=== PATIENT | female | born 1945 | race Caucasian/White ===

== ENCOUNTER 2020-09-03 12:08 | Emergency (ER) | payer MEDICARE, MEDICAID, SELFPAY ==
--- NOTE | ~2020-09-03 | XR_ITS ---
EXAMINATION: Right wrist and forearm CLINICAL INFORMATION: Injury COMPARISON: None TECHNIQUE: AP and lateral views of the right forearm were obtained. 3 views of the right hand and wrist FINDINGS: No acute fracture or dislocation of the right wrist is seen. There is severe degenerative change of the first carpal metacarpal joint with marginal sclerosis and spurring and what appears to be some loss of height of the trapezium. There is narrowing of the triscaphe joint. Views of the right hand demonstrate some degree of osteopenia. There is degenerative joint disease seen involving the proximal and distal interphalangeal joints with loss of joint space and prominent spurring and some cortical irregularity. No periarticular or para-articular erosive changes noted. AP and lateral views of the right forearm demonstrate some calcification about the triangular cartilage with mild negative ulnar variance. There is some spurring about the radius without definite fracture or effusion identified. There is spurring about the coronoid process. XR/XR hand wrist RT IMPRESSION: No acute fracture or dislocation identified involving the right hand, right wrist, or right forearm. Significant degenerative changes as described above.
--- NOTE | ~2020-09-03 | CT_ITS ---
EXAMINATION: CT HEAD/BRAIN WITHOUT CONTRAST CLINICAL INFORMATION: Fall COMPARISON: None. TECHNIQUE: CT scanning from base of skull to vertex performed without IV contrast administration. This CT examination was performed using dose optimization techniques as appropriate, variously including the following: *Automated exposure control *Adjustment of mA and/or kV according to patient size (this includes techniques or standardized protocols for targeted exams where dose is matched to indication/reason for exam; i.e. extremities or head) *Use of iterative reconstruction technique DLP: 760.02 mGy-cm. FINDINGS: The ventricles, sulci, and cisterns appear unremarkable. No abnormal extra-axial fluid collection or intracranial hemorrhage is seen. No significant mass effect or midline structure shift is evident. The calvarium appears intact. There is some right frontal scalp soft tissue swelling. Paranasal sinuses and mastoid air cells unremarkable. Carotid artery calcification present. CT/CT cervical spine wo con IMPRESSION: No acute intracranial abnormality appreciated. EXAMINATION: CT OF THE CERVICAL SPINE CLINICAL INFORMATION: Fall COMPARISON: None. TECHNIQUE: Thin helical images with sagittal and coronal reformats. This CT examination was performed using dose optimization techniques as appropriate, variously including the following: *Automated exposure control *Adjustment of mA and/or kV according to patient size (this includes techniques or standardized protocols for targeted exams where dose is matched to indication/reason for exam; i.e. extremities or head) *Use of iterative reconstruction technique DOSE: DLP 418.03 mGy-cm FINDINGS: No abnormal prevertebral soft tissue swelling seen. The paraspinal muscle planes are maintained. No acute cervical spine fracture is seen. There is severe multilevel degenerative disc disease present with loss of disc spaces from C2 through C7. There is some spurring of the joints of L[place]ch[place] at the C5-C6 and C6-C7 levels causing some mild anterior neural foraminal encroachment. There is fusion of the vertebral bodies and posterior elements at C3-C4. Pterygoid plates intact. There is significant degenerative change of the left temporal mandibular joint with flattening of the condyle and marginal sclerosis. IMPRESSION: No acute cervical spine fracture. Severe cervical spondylosis as described. Significant temporal mandibular joint degenerative change on the left.
--- NOTE | ~2020-09-03 | XR_ITS ---
EXAMINATION: XR FOREARM, LEFT XR HAND WRIST, LEFT CLINICAL INFORMATION: Trauma, pain COMPARISON: None TECHNIQUE: AP and lateral views of the left forearm were obtained. The left hand and wrist are imaged together in 3 large [id number] images. There are a total of 5 views for the 2 exams. FINDINGS: The left forearm shows no fracture or dislocation. There is some mild spurring of the coronoid. There is mild negative ulnar variance. Incidental corticated ossicle adjacent to tip ulnar styloid. The carpus shows no fracture or dislocation. There is arthropathy lateral carpus involving the first carpometacarpal joint and left degenerative change at the triscaphe joint. There is mild widening between the lunate and scaphoid likely related to degeneration and tear of the scapholunate ligament. The pronator quadratus fat pad appears normal. The hand shows no fracture or dislocation. There are degenerative changes involving the interphalangeal joints, both PIP and DIP. XR/XR hand wrist LT IMPRESSION: 1. No fracture or dislocation. 2. Widening between the lunate and scaphoid likely related to degeneration and tear scapholunate ligament. 3. Degenerative changes lateral carpus and interphalangeal joints.
--- NOTE | ~2020-09-03 | XR_ITS ---
EXAMINATION: Right wrist and forearm CLINICAL INFORMATION: Injury COMPARISON: None TECHNIQUE: AP and lateral views of the right forearm were obtained. 3 views of the right hand and wrist FINDINGS: No acute fracture or dislocation of the right wrist is seen. There is severe degenerative change of the first carpal metacarpal joint with marginal sclerosis and spurring and what appears to be some loss of height of the trapezium. There is narrowing of the triscaphe joint. Views of the right hand demonstrate some degree of osteopenia. There is degenerative joint disease seen involving the proximal and distal interphalangeal joints with loss of joint space and prominent spurring and some cortical irregularity. No periarticular or para-articular erosive changes noted. AP and lateral views of the right forearm demonstrate some calcification about the triangular cartilage with mild negative ulnar variance. There is some spurring about the radius without definite fracture or effusion identified. There is spurring about the coronoid process. XR/XR forearm RT 2V IMPRESSION: No acute fracture or dislocation identified involving the right hand, right wrist, or right forearm. Significant degenerative changes as described above.
--- NOTE | ~2020-09-03 | XR_ITS ---
EXAMINATION: XR FOREARM, LEFT XR HAND WRIST, LEFT CLINICAL INFORMATION: Trauma, pain COMPARISON: None TECHNIQUE: AP and lateral views of the left forearm were obtained. The left hand and wrist are imaged together in 3 large [id number] images. There are a total of 5 views for the 2 exams. FINDINGS: The left forearm shows no fracture or dislocation. There is some mild spurring of the coronoid. There is mild negative ulnar variance. Incidental corticated ossicle adjacent to tip ulnar styloid. The carpus shows no fracture or dislocation. There is arthropathy lateral carpus involving the first carpometacarpal joint and left degenerative change at the triscaphe joint. There is mild widening between the lunate and scaphoid likely related to degeneration and tear of the scapholunate ligament. The pronator quadratus fat pad appears normal. The hand shows no fracture or dislocation. There are degenerative changes involving the interphalangeal joints, both PIP and DIP. XR/XR forearm LT 2V IMPRESSION: 1. No fracture or dislocation. 2. Widening between the lunate and scaphoid likely related to degeneration and tear scapholunate ligament. 3. Degenerative changes lateral carpus and interphalangeal joints.
[2020-09-03 12:17] VITALS: BP 168/86; BP 171/80; PULSE 80; RESP 16; TEMP 36.4; O2SAT 97; BMI 30.4
--- NOTE | 2020-09-03 12:43 | ED.GENADULT ---
HPI - General Adult General Chief complaint: General Medical Stated complaint: mechanical fall/ head lac Time Seen by Provider: 09/03/20 12:43 History of Present Illness HPI narrative: patient complains of pain to both hands wrists and forearms after a trip and fall, she also hit her head and has a laceration to her scalp and has some neck pain, there was no loss of consciousness no vomiting no vision changes no preceding dizziness did not feel faint, did not feel any palpitations, there is no numbness or weakness, no chest pain no abdominal pain no vomiting Related Data Allergies Allergy/AdvReac Type Severity Reaction Status Date / Time No Known Allergies Allergy Verified 09/03/20 12:17 Review of Systems Review of Systems: Positive for bilateral wrist and arm pain, neck pain and a laceration to the scalp Negatives are no fever no chills no dizziness no weakness no fainting no feeling faint no headache no loss of consciousness no retrograde amnesia no vision changes, no numbness weakness or tingling in extremities no chest pain no palpitations no shortness of breath no abdominal pain no nausea or vomiting PMFSH Past Medical History Medical History Diverticulitis FHx: total knee replacement Surgical History H/O shoulder replacement S/P hip replacement Social History Social History Advance Directives: No Advance Directives Information Provided: No Physical Exam Vital Signs: Vital Signs: Last Vital Signs Temp 97.5 F 09/03/20 12:17 Pulse 80 09/03/20 12:17 Resp 16 09/03/20 12:17 BP 171/80 H 09/03/20 12:17 Pulse Ox 97 09/03/20 12:17 Body Mass Index 30.4 General appearance is no acute distress A&O x3 The head had a 1 cm superficial laceration to the scalp, there is no hematoma there is no defects there is no rand sign no raccoon eyes ear exam there is no hemotympanum Facial exam there is no tenderness over the orbits or mandible Eye exam pupils equal round reactive to light extraocular motions are intact The neck did have bilateral paraspinal tenderness there is no bony tenderness there was mild discomfort with movement of the neck The chest is clear to auscultation bilateral with full symmetric equal breath sounds Heart no murmur Chest wall nontender no rib tenderness The abdomen soft nontender Extremities there is tenderness with good range of motion in bilateral wrists there is tenderness to the forearms and there was some tenderness to the palms of the hands but there is full range of motion in the fingers wrists and elbows, neurovascular intact distal in both upper extremities Lower extremities no tenderness swelling or deformity Neuro no focal motor or sensory deficit, conversation both understanding and expression are normal, motor is 5/5 x4, no facial asymmetry, cranial nerves 2-12 intact as test Course Course Course Narrative: CT of brain and cervical spine did not show any bleed or skull fracture, no acute pathology, the cervical spine did not show any fractures or any other emergent condition X-rays of hand wrist and forearm bilaterally did not reveal any fractures Patient is well-appearing and is discharged to follow with orthopedist as needed for the arms and if there is any continuing neck pain she will follow with her doctor Discharge Plan Discharge Clinical Impression: Sprain of wrist, Laceration of scalp, Neck muscle strain Patient Disposition: Home, Self-Care Additional Instructions: imaging today did not show any broken bone in the hand wrist or forearm of either arm Imaging of the brain the skull and the bones of the neck did not show any broken bone or bleed or skull fracture, no dangerous injury The small cut on her scalp was closed with glue and 2 Steri-Strips You got a tetanus shot If hand and wrist pain continues follow with hand doctor Follow with primary doctor for any ongoing neck pain or any other problems Return to the ER any time any worse condition or any concerns Referrals: Becki Wilde MD [Physician] - 2 days ( bilateral wrist sprains) Interventions: ED Discharge Assessment Last Done: 09/03/20 15:45 Discharge Date/Time: 09/03/20 15:46
[2020-09-03] MEDS: LORazepam 1 MG TABLET PO (12:54)
[2020-09-03] MEDS: oxyCODONE HCl Immed Release 5 MG TABLET PO ×2 (12:55→14:10)
[2020-09-03] MEDS: Diphth,Pertus(ACell),Tet Adult 0.5 ML SYRINGE IM (14:52)
== END 2020-09-03 15:46 | disposition home or self-care (01) ==
PROVIDERS: Emergency Provider Emergency Medicine; PCP Pediatrics
DX: S63.501A Unspecified sprain of right wrist, initial encounter (principal); S63.502A Unspecified sprain of left wrist, initial encounter; S01.01XA Laceration without foreign body of scalp, initial encounter; S16.1XXA Strain of muscle, fascia and tendon at neck level, initial encounter; W01.0XXA Fall on same level from slipping, tripping and stumbling without subsequent striking against object, initial encounter; Y93.9 Activity, unspecified; Y92.9 Unspecified place or not applicable; Y99.9 Unspecified external cause status
CPT/HCPCS: 70450; 72125; 73090; 73110; 73130; 90471; 90715; 99284

== ENCOUNTER 2023-06-08 13:17 | Outpatient (AMB) | payer MEDICARE, MEDICAID, SELFPAY ==
--- NOTE | 2023-06-08 13:23 | A.OFFPC_ITS ---
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 Gas Controller Required: No Allergies codeine Allergy (Intermediate, Verified 06/08/23 13:24) headache Medication List - Last Reconciled 06/08/23 by Ayesha Marroquin PA-C albuterol sulfate 90 mcg/actuation inhalation atorvastatin 40 mg PO DAILY biotin mcg PO budesonide 180 mcg/actuation (Pulmicort Flexhaler) 2 inhalations inhalation BID cholecalciferol (vitamin D3) 50 mcg PO DAILY diclofenac sodium 1% topical docusate sodium 100 mg PO BID lisinopril 10 mg PO DAILY mecobalamin (vitamin B12) mcg PO meloxicam 15 mg PO DAILY metoprolol succinate ER 50 mg PO BID tu-ipw-ubmal-calcium carb-K1 400 mcg-500 mg calcium-20 mcg (Women's 50 Plus Multivitamin) tabs PO pantoprazole 40 mg PO DAILY pyridoxine (vitamin B6) 100 mg PO DAILY sertraline 150 mg PO Q24H simethicone 80 mg PO Q6H PRN sucralfate 1 g PO BID trazodone 100 mg PO BEDTIME PRN vit C,E,Zn,Ab-dvike3-xma-zeax 250-2.5-0.5 mg caps PO Tobacco use date assessed: 06/08/23 Fall risk assessment: No Falls in past year Last assessed Fall Risk: 06/08/23 Dental Screening Dental Screen Date: 06/08/23 Did you have a dental visit in the last 12 months?: No Did you have a dental problem in the last 6 months where you did not have access to dental care?: No Was dental information given to patient?: 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 She is transferring from [facility], last seen a couple months ago by myself. No records yet available. CV: Blood pressure today in the office is 116/72. Lisinopril 10 mg and metoprolol 50 mg BID. She is following with Dr. Lynn. She has follow up arranged this summer and is going for a diagnostic cath per pt. Denies any current cp. She does get cp and sob with exertion. this is currently unchanged. doing well with the atorvastatin. remains on aspirin. GI: She is on pantroprazole daily and it is helpful. She was following with Dr. Grossman and was seen 4 years ago for a double endoscopy. She is going to be seeing [facility] [place]. She does still get breakthrough GERD. Endo: Following with endo for osteoporosis and saw them yesterday. She states that they are going to possibly start prolia. Psych: at our last visit we went up to 150 mg of sertraline. She remains on trazodone 100 mg. She denies any si/hi. She states that her depression is currently active because her car 3 weeks ago. Her son is a drug addict and facing foreclosure on his home and this is stressful. She is states that she has heard from [facility] and is going in next week for her initial intake. She still sees [facility] weekly. Musculoskeletal: she states that her fibromyalgia is a bit flared with the new life stressors. Colonoscopy:2019- Dr. Grossman Mammo:overdue Immunizations: UTD Bone Density: UTD, -osteoporosis [facility] Medical History Diverticulitis FHx: total knee replacement Surgical History H/O shoulder replacement S/P hip replacement Social History Housing: Other Housing Other:: Mobile home Patient Tobacco Use Status: Former Tobacco user Tobacco use type: Cigarette Years Smoked: 16 years total. Smoked socially. quit 25 years ago e-Cigarette/Vaping Use: Never Used Second Hand Smoke Exposure: Yes service: No Current occupational status: retired Cognitive needs: No Hearing needs: No Vision needs: No Questionnaire PHQ-9 Over the last 2 weeks, how often have you been bothered by any of the following problems? 1. Little interest or pleasure in doing things: several days 2. Feeling down, depressed, or hopeless: more than half the days 3. Trouble falling or staying asleep, or sleeping too much: several days 4. Feeling tired or having little energy: not at all 5. Poor appetite or overeating: not at all 6. Feeling bad about yourself - or that you are a failure or have let yourself or your family down: not at all 7. Trouble concentrating on things, such as reading the newspaper or watching television: not at all 8. Moving or speaking so slowly that other people could have noticed. Or the opposite - being so fidgety or restless that you have been moving around a lot more than usual: not at all 9. Thoughts that you would be better off or of hurting yourself in some way: not at all Total score: 4 Depression Screening Interpretation: Positive Depression Screening Follow-up: Existing condition, In treatment, New Medication prescribed and Community Mental Health Worker F/U Depression Screening Done: Yes 06196 - PHQ-9 Billing: Yes Source: Developed by Drs. Johnathan Landeros, Yanelis Maldonado, Dutch Vogel and colleagues, with an educational rambo from [employer]. Thrive Questionnaire Date Thrive assessed: 06/08/23 I am a: Patient What is your living situation today?: I have a steady place to live Within the past 12 months, did the food you bought not last and you didn't have the money to get more?: Never true Within the past 12 months, did you worry whether your food would run out before you got money to buy more?: Never true Do you have trouble paying for medicines?: No Do you have trouble getting transportation to medical appointments?: No Do you have trouble paying your heating and electricity bill?: No Do you have trouble taking care of your child, family member or friend?: No Do you have trouble with day-to-day activities such as bathing, preparing meals, shopping, managing finances, etc.?: No Are you currently unemployed and looking for a job?: No Are you interested in more education?: No Please select the resources that you would like help with: None Currently or been in a relationship where the following occur: no concerns reported THRIVE Score: 0 AUDIT C Alcohol Use Questionnaire (AUDIT-C) 1. How often do you have a drink containing alcohol?: 4 or more times a week 2. How many drinks containing alcohol do you have on a typical day when you are drinking?: 1 or 2 3. How often do you have six or more drinks on one occasion?: Never Total Score: 4 MAYTE-7 AMB Questionnaire MAYTE-7 Date MAYTE - 7 assessed: 06/08/23 Feeling nervous, anxious, or on edge: 1 = Several days Not being able to stop or control worryin = Several days Worrying too much about different things: 2 = More than half the days Trouble relaxin = Several days Being so restless that it is hard to sit still: 1 = Several days Becoming easily annoyed or irritable: 0 = Not at all Feeling afraid as if something awful might happen: 0 = Not at all Total MAYTE-7 score (0-4 normal; 5-9 mild; 10-14 moderate; 15-21 severe): 6 Source: Developed by Drs. Johnathan Landeros, Yanelis Maldonado, Dutch Vogel and colleagues, with an educational rambo from [employer]. MAYTE-7 Assessment Billing MAYTE-7 Assessment Tool: MAYTE-7 Assessment 06175 ACT Questionnaire In the past 4 weeks, how much of the time did your asthma keep you from getting as much done at work, school or at home?: None of the time During the past 4 weeks, how often have you had shortness of breath?: More than once a day During the past 4 weeks, how often did your asthma symptoms wake you up at night or earlier than usual in the morning?: Not at all During the past 4 weeks, how often have you had to use your rescue inhaler or nebulizer medication?: Once a week or less How would you rate your asthma control during the past 4 weeks?: Completely controlled ACT Interpretation: Positive Score: 20 Physical exam (Primary Care) Vital Signs: Last Vital Signs Temp 98.2 F 06/08/23 13:40 Pulse 56 06/08/23 13:40 Resp 16 06/08/23 13:40 BP 116/72 06/08/23 13:40 Pulse Ox 96 06/08/23 13:40 Oxygen Delivery Method Room Air 06/08/23 13:40 BMI result Body Mass Index 31.6 BMI Assessment/Plan discussion: High BMI High, discussed plan: dietary Tobacco/Smoking Status: Tobacco use Status Tobacco use date assessed 06/08/23 06/08/23 13:53 Patient Tobacco Use Status Former Tobacco user 06/08/23 13:39 Tobacco use type Cigarette 06/08/23 13:53 e-Cigarette/Vaping Use Never Used 06/08/23 13:39 Depression Screening Interpretation: Positive Depression Screening Follow-up: Existing condition, In treatment, New Medication prescribed and Community Mental Health Worker F/U Currently or been in a relationship where the following occur: no concerns reported Const Orientation/consciousness: patient oriented x3 HENMT Ears: hearing grossly normal bilaterally Neck Thyroid: Thyroid normal Lymphatic: no lymphadenopathy noted Resp Auscultation: clear to auscultation bilaterally Cardio Rate: regular rate Rhythm: regular rhythm Heart sounds: S1 normal heart sound present and S2 normal heart sound present Skin General skin exam: no rashes or lesions noted Neuro General: patient oriented x3, gait normal and no focal motor deficits Assessment and Plan Assessment & Plan (1) HTN (hypertension), benign: Code(s): I10 - Essential (primary) hypertension Plan: Currently well-controlled. Continue current plan of metoprolol 50 mg b.i.d. and lisinopril 10 mg daily (2) Hyperlipidemia: Code(s): E78.5 - Hyperlipidemia, unspecified Qualifiers: Hyperlipidemia type: mixed hyperlipidemia Qualified Code(s): E78.2 - Mixed hyperlipidemia Plan: Tolerating atorvastatin 40 mg. We will check lipids and LFTs. (3) Generalized anxiety disorder: Code(s): F41.1 - Generalized anxiety disorder Plan: Discontinue BuSpar. Continue with sertraline. I have added Cymbalta. Discussed risks and benefits and adverse effects of this medication. She has follow up with behavioral health next week and will be starting long-term outpatient treatment with [facility]. Currently feels safe. She has never been hospitalized for anxiety or depression in the past. She will contact us if anything worsens or changes. Four-week follow-up recommended. Sooner if needed. Patient understands and agrees with this. (4) Depression, major, recurrent, moderate: Code(s): F33.1 - Major depressive disorder, recurrent, moderate Plan: See above. (5) Fibromyalgia: Code(s): M79.7 - Fibromyalgia Plan: Continue with meloxicam p.r.n.. Takes this about once or twice a month. We will try Cymbalta. (6) Osteoporosis: Code(s): M81.0 - Age-related osteoporosis without current pathological fracture Qualifiers: Osteoporosis type: age-related Presence of current pathological fracture: without current pathological fracture Qualified Code(s): M81.0 - Age- related osteoporosis without current pathological fracture Plan: Following with endocrinology. (7) GERD (gastroesophageal reflux disease): Code(s): K21.9 - Gastro-esophageal reflux disease without esophagitis Qualifiers: Esophagitis presence: with esophagitis Esophagitis bleeding: without hemorrhage Qualified Code(s): K21.00 - Gastro-esophageal reflux disease with esophagitis, without bleeding Plan: Has follow up arranged with GI. Plan Labs ordered today. Mammogram ordered. Advised to complete labs prior to next appointment. Advised to follow up in 4 weeks. Sooner if needed. Patient understands and agrees with this plan. Orders: Orders Lipid Panel Today E78.2 - Mixed hyperlipidemia, F33.1 - Major depressive disorder, recurrent, moderate, F41.1 - Generalized anxiety disorder, I10 - Essential (primary) hypertension, M79.7 - Fibromyalgia MM screening mammo BI Today E78.2 - Mixed hyperlipidemia, F33.1 - Major depressive disorder, recurrent, moderate, F41.1 - Generalized anxiety disorder, I10 - Essential (primary) hypertension, M79.7 - Fibromyalgia, Z12.31 - Encounter for screening mammogram for malignant neoplasm of breast Complete Blood Count Auto Diff Today E78.2 - Mixed hyperlipidemia, F33.1 - Major depressive disorder, recurrent, moderate, F41.1 - Generalized anxiety disorder, I10 - Essential (primary) hypertension, M79.7 - Fibromyalgia, Z00.00 - Encounter for general adult medical examination without abnormal findings Comprehensive Met. Panel Today E78.2 - Mixed hyperlipidemia, F33.1 - Major dep ressive disorder, recurrent, moderate, F41.1 - Generalized anxiety disorder, I10 - Essential (primary) hypertension, M79.7 - Fibromyalgia TSH reflex Free T4 Today E78.2 - Mixed hyperlipidemia, F33.1 - Major depressive disorder, recurrent, moderate, F41.1 - Generalized anxiety disorder, I10 - Essential (primary) hypertension, M79.7 - Fibromyalgia Magnesium Today E78.2 - Mixed hyperlipidemia, F33.1 - Major depressive disorder, recurrent, moderate, F41.1 - Generalized anxiety disorder, I10 - Essential (primary) hypertension, M79.7 - Fibromyalgia Coding Level of Care Code Est Pt Level 4 (30085) Diagnoses HTN (hypertension), benign I10 Mixed hyperlipidemia E78.2 Hyperlipidemia type: mixed hyperlipidemia Generalized anxiety disorder F41.1 Depression, major, recurrent, moderate F33.1 Fibromyalgia M79.7 Age-related osteoporosis without current pathological fracture M81.0 Osteoporosis type: age-related Presence of current pathological fracture: without current pathological fracture Gastroesophageal reflux disease with esophagitis without hemorrhage K21.00 Esophagitis presence: with esophagitis Esophagitis bleeding: without hemorrhage Additional Codes MAYTE-7 Assessment Billing - MAYTE-7 Assessment Tool: MAYTE-7 Assessment 96130 ([id number])
[2023-06-08 13:40] VITALS: BP 116/72; PULSE 56; RESP 16; TEMP 36.8; O2SAT 96; BMI 31.6
== END 2023-06-08 14:26 | disposition home or self-care (01) ==
PROVIDERS: PCP Physician Assistant; Visit Provider Physician Assistant
DX: I10 Essential (primary) hypertension (principal); E78.2 Mixed hyperlipidemia; F41.1 Generalized anxiety disorder; F33.1 Major depressive disorder, recurrent, moderate; M79.7 Fibromyalgia; M81.0 Age-related osteoporosis without current pathological fracture; K21.00 Gastro-esophageal reflux disease with esophagitis, without bleeding
CPT/HCPCS: 96127; 99214

== ENCOUNTER 2023-07-06 13:51 | Outpatient (AMB) | payer MEDICARE, MEDICAID, SELFPAY ==
--- NOTE | 2023-07-06 14:05 | MHC.PC.OV ---
Vital Signs 07/06/23 14:07 Height 5 ft 0.5 in Weight 183 lb 2 oz BMI 35.2 BP 118/68 Blood Pressure Location Lt brachial Position Sitting Respiration 16 Pulse Source Pulse Oximeter Pulse Oximetry (%) 97 Oxygen Delivery Method Room Air Intake Visit Reasons: fibromyalgia and labs Intake Note: Follow up Advanced Practice Professional Required: No Allergies codeine Allergy (Intermediate, Verified 07/06/23 14:05) headache Medication List - Last Reconciled 07/06/23 by Ayesha Marroquin PA-C albuterol sulfate 90 mcg/actuation inhalation atorvastatin 40 mg PO DAILY biotin mcg PO budesonide 180 mcg/actuation (Pulmicort Flexhaler) 2 inhalations inhalation BID cholecalciferol (vitamin D3) 50 mcg PO DAILY diclofenac sodium 1% topical docusate sodium 100 mg PO BID duloxetine (Cymbalta) 20 mg PO BID 30 days lisinopril 10 mg PO DAILY mecobalamin (vitamin B12) mcg PO meloxicam 15 mg PO DAILY metoprolol succinate ER 50 mg PO BID qt-yno-nrrcu-calcium carb-K1 400 mcg-500 mg calcium-20 mcg (Women's 50 Plus Multivitamin) tabs PO pantoprazole 40 mg PO DAILY pyridoxine (vitamin B6) 100 mg PO DAILY sertraline 150 mg PO Q24H simethicone 80 mg PO Q6H PRN sucralfate 1 g PO BID trazodone 100 mg PO BEDTIME PRN vit C,E,Zn,Se-ccfud7-zvt-zeax 250-2.5-0.5 mg caps PO Tobacco use date assessed: 07/06/23 Fall risk assessment: No Falls in past year Last assessed Fall Risk: 07/06/23 Dental Screening Dental Screen Date: 06/08/23 HPI fibromyalgia and labs HPI Details Patient is an 78-year-old female with a significant past medical history of hypertension, hyperlipidemia, arthritis, anxiety, depression, fibromyalgia, GERD and IBS presenting today for a follow up. Forgot to get labs prior. CV: Blood pressure today in the office is 118/68. Lisinopril 10 mg and metoprolol 50 mg BID. She is following with Dr. Lynn. She has follow up arranged this summer and is going for a diagnostic cath per pt. Denies any current cp. She does get cp and sob with exertion. this is currently unchanged. doing well with the atorvastatin. remains on aspirin. -Noticed left lower leg pain and swelling x 1 week. It gets worse as the day goes on. Swelling is still somewhat present on waking. She wonders if it is related to her knee arthritis. She has been a bit more sedentary. No surgery or trauma or travel. GI: She is on pantroprazole daily and it is helpful. She was following with Dr. Grossman and was seen 4 years ago for a double endoscopy. She is going to be seeing [facility] this summer. She does still get breakthrough GERD. Endo: Following with endo for osteoporosis. She states that they are going to possibly start prolia. Psych: She is currently on sertraline 150 mg and trazodone 50 mg nightly. She is states that she has heard from [facility] and is supposed to see them but canceled her appointment. She states she is going to call today. Musculoskeletal: Following with ortho, Dr. Funez, for hips and knees. she states that her fibromyalgia is a bit better with cymbalta. Gabapentin upsets her stomach. Colonoscopy:2019- Dr. Grossman Mammo:overdue- was ordered at last visit Immunizations: UTD Bone Density: UTD, -osteoporosis [facility] Medical History (Updated 07/06/23 @ 14:52 by Ayesha Marroquin PA-C) IBS (irritable bowel syndrome) GERD (gastroesophageal reflux disease) Osteoporosis Fibromyalgia Depression, major, recurrent, moderate Generalized anxiety disorder CAD (coronary artery disease) Hyperlipidemia HTN (hypertension), benign Diverticulitis FHx: total knee replacement Surgical History S/P hip replacement H/O shoulder replacement Social History Housing: Other Housing Other:: Mobile home Patient Tobacco Use Status: Former Tobacco user Tobacco use type: Cigarette Years Smoked: 16 years total. Smoked socially. quit 25 years ago e-Cigarette/Vaping Use: Never Used Second Hand Smoke Exposure: Yes service: No Current occupational status: retired Cognitive needs: No Hearing needs: No Vision needs: No Questionnaire PHQ-9 Over the last 2 weeks, how often have you been bothered by any of the following problems? 1. Little interest or pleasure in doing things: more than half the days 2. Feeling down, depressed, or hopeless: several days 3. Trouble falling or staying asleep, or sleeping too much: more than half the days 4. Feeling tired or having little energy: nearly every day 5. Poor appetite or overeating: more than half the days 6. Feeling bad about yourself - or that you are a failure or have let yourself or your family down: several days 7. Trouble concentrating on things, such as reading the newspaper or watching television: more than half the days 8. Moving or speaking so slowly that other people could have noticed. Or the opposite - being so fidgety or restless that you have been moving around a lot more than usual: not at all 9. Thoughts that you would be better off or of hurting yourself in some way: not at all Total score: 13 Depression Screening Interpretation: Positive Depression Screening Done: Yes 62005 - PHQ-9 Billing: Yes Source: Developed by Drs. Johnathan Landeros, Yanelis Maldonado, Dutch Vogel and colleagues, with an educational rambo from [employer]. Thrive Questionnaire Date Thrive assessed: 06/08/23 MAYTE-7 AMB Questionnaire MAYTE-7 Date MAYTE - 7 assessed: 06/08/23 Source: Developed by Drs. Johnathan Landeros, Yanelis Maldonado, Dutch Vogel and colleagues, with an educational rambo from [employer]. Physical exam (Primary Care) Vital Signs: Last Vital Signs Resp 16 07/06/23 14:07 BP 118/68 07/06/23 14:07 Pulse Ox 97 07/06/23 14:07 Oxygen Delivery Method Room Air 07/06/23 14:07 BMI result Body Mass Index 35.2 Tobacco/Smoking Status: Tobacco use Status Tobacco use date assessed 07/06/23 07/06/23 14:06 Patient Tobacco Use Status Former Tobacco user 07/06/23 14:06 Tobacco use type Cigarette 07/06/23 14:06 e-Cigarette/Vaping Use Never Used 07/06/23 14:06 PHQ-9: PHQ-9 Score PHQ-9: Total score 13 07/06/23 14:13 Depression Screening Interpretation: Positive Thrive Assessment: Date of Thrive Assessment Date Thrive assessed 06/08/23 07/06/23 14:06 Const Orientation/consciousness: patient oriented x3 HENMT Ears: hearing grossly normal bilaterally Neck Thyroid: Thyroid normal Lymphatic: no lymphadenopathy noted Resp Auscultation: clear to auscultation bilaterally Cardio Rate: regular rate Rhythm: regular rhythm Heart sounds: S1 normal heart sound present and S2 normal heart sound present GI Inspection: Yes normal to inspection Palpation (GI): Soft to palpation and Other GI palpation findings present (nontender, no cva tenderness) Auscultation: normoactive bowel sounds Skin Other: There is a patch of dry, papular skin noted on the right lower leg. Skin intact Neuro General: patient oriented x3, gait normal and no focal motor deficits Extrem Other: The left lower leg is notably larger than the right. Right lower leg is 36 cm, left lower leg is 38.5 cm. The left calf is tender to palpation DP pulses are 1+ bilaterally. There is nonpitting edema noted of the right ankle/lower leg. skin intact. no erythema. General: Yes full ROM Assessment and Plan Assessment & Plan (1) Pain and swelling of left lower leg: Code(s): M79.662 - Pain in left lower leg; M79.89 - Other specified soft tissue disorders Plan: stat ultrasound ordered. pt will be scheduled today or tomorrow. does not want to go to er to r/o. aware dvts can be life threatening. (2) Fibromyalgia: Code(s): M79.7 - Fibromyalgia Plan: currently slightly improved with addition of cymbalta (3) Depression, major, recurrent, moderate: Code(s): F33.1 - Major depressive disorder, recurrent, moderate Plan: stable. No SI/HI. Going to call [facility] (4) Generalized anxiety disorder: Code(s): F41.1 - Generalized anxiety disorder Plan: as above (5) HTN (hypertension), benign: Code(s): I10 - Essential (primary) hypertension Plan: well controlled (6) Dermatitis: Code(s): L30.9 - Dermatitis, unspecified Plan: Will start triamcinolone cream. Discussed risks and benefits and adverse effects. She will let me know if anything changes. Orders: Orders US venous duplex LE LT Today M79.662 - Pain in left lower leg, M79.89 - Other specified soft tissue disorders Medications: New triamcinolone acetonide 0.025% 1 appl topical BID 15 grams 2RF Coding Level of Care Code Est Pt Level 4 (62302) Complex EM visit Add On G2211 Diagnoses Pain and swelling of left lower leg M79.662; M79.89 Fibromyalgia M79.7 Depression, major, recurrent, moderate F33.1 Generalized anxiety disorder F41.1 HTN (hypertension), benign I10 Dermatitis L30.9
[2023-07-06 14:07] VITALS: BP 118/68; RESP 16; O2SAT 97; BMI 35.2
== END 2023-07-06 15:02 | disposition home or self-care (01) ==
PROVIDERS: PCP Physician Assistant; Visit Provider Physician Assistant
DX: M79.662 Pain in left lower leg (principal); M79.89 Other specified soft tissue disorders; M79.7 Fibromyalgia; F33.1 Major depressive disorder, recurrent, moderate; F41.1 Generalized anxiety disorder; I10 Essential (primary) hypertension; L30.9 Dermatitis, unspecified
CPT/HCPCS: 99214; G2211

== ENCOUNTER 2023-07-14 10:14 | Outpatient (REF) | payer MEDICARE, MEDICAID, SELFPAY ==
--- NOTE | ~2023-07-14 | US_ITS ---
EXAMINATION: US VENOUS ULTRASOUND WITH DOPPLER LOWER EXTREMITY, LEFT CLINICAL INFORMATION: Leg pain COMPARISON: None available. TECHNIQUE: Ultrasound of the deep veins is performed from the hip to the calf with compression sonography and color and pulse Doppler assessment. Spectral analysis with color-flow imaging is performed. FINDINGS: There is normal venous compression and respiratory variation and augmented flow. The visualized common femoral vein, superficial femoral vein, profunda femoral vein, popliteal vein, and the trifurcation region shows no evidence of deep venous thrombosis. There is no significant popliteal fossa cyst. If the patient's symptoms persist, followup ultrasound in 5 days 7 days might be of value to exclude proximal propagation from a non-visualized calf vein. US/US venous duplex LE LT IMPRESSION: No DVT demonstrated in the left lower extremity.
== END 2023-07-14 10:15 | disposition home or self-care (01) ==
LOC: HO.HMGCX 10:14
PROVIDERS: PCP Physician Assistant; Visit Provider Physician Assistant
DX: M79.662 Pain in left lower leg (principal); R60.0 Localized edema
CPT/HCPCS: 93971

== ENCOUNTER 2023-07-19 11:17 | Outpatient (REF) | payer MEDICARE, SELFPAY ==
[2023-07-19 14:41] LABS: MANUAL DIFF FLAG NO
[2023-07-19 15:12] LABS: Basophils Percent Auto 0.7 % (0-2); Eosinophils Absolute Auto 0.2 X10*3/uL (0.0-0.4); Eosinophils Percent Auto 3.9 % (0-4); Hematocrit 34.8 % (37.0-47.0); Hemoglobin 11.7 g/dl (12.0-16.0); Imm Gran Abs Auto 0.02 X10*3/uL (0.00-0.03); Imm Gran Pct Auto 0.5 % (0.0-0.4); Lymphocytes Absolute Auto 1.4 X10*3/uL (1.2-4.9); Lymphocytes Percent Auto 31.6 % (20-40); Mean Corpuscular HGB Conc 33.6 g/dl (31.0-35.0); Mean Corpuscular Hemoglobin 31.5 pg (27.0-33.0); Mean Corpuscular Volume 93.5 fL (80.0-98.0); Mean Platelet Volume 10.3 fL (9.4-12.3); Monocytes Absolute Auto 0.5 X10*3/uL (0.1-1.2); Monocytes Percent Auto 10.6 % (2-11); Neutrophils Absolute Auto 2.3 x10*3/uL (2.0-8.3); Neutrophils Percent Auto 52.7 % (45-73); Platelet Count 221 X10*3/uL (160-400); Red Blood Count 3.72 X10*6/uL (4.20-5.50); Red Cell Distribution Width 12.7 % (11.0-16.0); White Blood Count 4.3 X10*3/uL (4.8-10.8)
[2023-07-19 17:47] LABS: Alanine Aminotransferase 19 U/L (0-31); Albumin Level 4.2 g/dL (3.5-5.0); Alkaline Phosphatase 84 U/L (39-117); Anion Gap 14 (12-20); Aspartate Amino Transferase 28 U/L (5-31); Bilirubin Total 0.5 mg/dL (0.0-1.0); Blood Urea Nitrogen 12 mg/dL (9-16); Calcium 10.3 mg/dL (8.4-10.2); Carbon Dioxide 24 mmol/L (22-29); Chloride 99 mmol/L (96-108); Cholesterol 190 mg/dL (<200); Estimated Glomerular Filt Rate > 60; Glucose Random 93 mg/dL (60-115); HDL Cholesterol 72 mg/dL (>40); LDL Cholesterol Calculated 97 mg/dL (<100); Magnesium 1.8 mg/dL (1.6-2.6); Sodium 133 mmol/L (135-145); TSH reflex Free T4 1.68 uIU/mL (0.32-4.0); Total Protein 7.6 g/dL (6.5-8.0); Triglycerides 107 mg/dL (<150)
== END 2023-07-19 11:18 | disposition home or self-care (01) ==
LOC: HO.WFDLDS 11:17
PROVIDERS: Visit Provider Physician Assistant
DX: Z00.00 Encounter for general adult medical examination without abnormal findings (principal); I10 Essential (primary) hypertension; E78.2 Mixed hyperlipidemia; F41.1 Generalized anxiety disorder; F33.1 Major depressive disorder, recurrent, moderate; M79.7 Fibromyalgia
CPT/HCPCS: 36415; 80053; 80061; 83735; 84443; 85025

== ENCOUNTER 2023-07-20 14:03 | Outpatient (AMB) | payer MEDICARE, MEDICAID, SELFPAY ==
--- NOTE | 2023-07-20 14:08 | A.OFFPC_ITS ---
Vital Signs 07/20/23 14:11 07/20/23 14:16 Height 5 ft 3.5 in Weight 182 lb BMI 31.7 BP 146/78 H 140/74 H Blood Pressure Location Lt radial Lt radial Position Sitting Sitting Pulse 67 Pulse Source Pulse Oximeter Temp 98.0 F Temp Source Oral Pulse Oximetry (%) 96 Oxygen Delivery Method Room Air Intake Visit Reasons: depression and labs Intake Note: Follow up. Red rash on both legs, severe itching. 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 Allergies codeine Allergy (Intermediate, Verified 07/20/23 14:10) headache Medication List - Last Reconciled 07/20/23 by Ayesha Marroquin PA-C albuterol sulfate 90 mcg/actuation inhalation atorvastatin 40 mg PO DAILY biotin mcg PO budesonide 180 mcg/actuation (Pulmicort Flexhaler) 2 inhalations inhalation BID buspirone 5 mg PO TID cholecalciferol (vitamin D3) 50 mcg PO DAILY diclofenac sodium 1% topical docusate sodium 100 mg PO BID lisinopril 10 mg PO DAILY mecobalamin (vitamin B12) mcg PO meloxicam 15 mg PO DAILY metoprolol succinate ER 50 mg PO BID gt-yve-bumgj-calcium carb-K1 400 mcg-500 mg calcium-20 mcg (Women's 50 Plus Multivitamin) tabs PO pantoprazole 40 mg PO DAILY pyridoxine (vitamin B6) 100 mg PO DAILY sertraline 150 mg PO Q24H simethicone 80 mg PO Q6H PRN sucralfate 1 g PO BID trazodone 100 mg PO BEDTIME PRN triamcinolone acetonide 0.025% 1 appl topical BID vit C,E,Zn,Vn-auokc3-rqz-zeax 250-2.5-0.5 mg caps PO Tobacco use date assessed: 07/06/23 Dental Screening Dental Screen Date: 06/08/23 HPI depression and labs HPI Details Patient is an 78-year-old female with a significant past medical history of hypertension, hyperlipidemia, arthritis, anxiety, depression, fibromyalgia, GERD and IBS presenting today for a follow up. got labs done prior to today. Has started itching after starting cymbalta. applying triamcinolone cream without significant improvement. itching is wide spread. CV: Blood pressure today in the office is 148/78. She is supposed to take Lisinopril 10 mg and metoprolol 50 mg BID. She did not take her lisinopril today. She is following with Dr. Lynn. She has follow up arranged this summer and is going for a diagnostic cath per pt. Denies any current cp. She does get cp and sob with exertion. this is currently unchanged. doing well with the atorvastatin. remains on aspirin. GI: She is on pantroprazole daily and it is helpful. She was following with Dr. Grossman and was seen 4 years ago for a double endoscopy. She is going to be seeing [facility] this summer. She does still get breakthrough GERD. Endo: Following with endo for osteoporosis. She states that they are going to possibly start prolia. Psych: She is currently on sertraline 150 mg and trazodone 50 mg nightly. She is finally doing better with cymbalta but thinks cymbalta is causing a rash. She states she is itchy since starting it. wants to use buspar prn (1-3 x a week for anxiety). Musculoskeletal: Following with ortho, Dr. Funez, for hips and knees. she states that her fibromyalgia is a bit better with cymbalta. Gabapentin upsets her stomach. Colonoscopy:2019- Dr. Grossman Mammo:overdue- was ordered at last visit Immunizations: UTD Bone Density: UTD, -osteoporosis [facility] Medical History (Updated 07/20/23 @ 14:27 by Ayesha Marroquin PA-C) IBS (irritable bowel syndrome) GERD (gastroesophageal reflux disease) Osteoporosis Fibromyalgia Depression, major, recurrent, moderate Generalized anxiety disorder CAD (coronary artery disease) Hyperlipidemia HTN (hypertension), benign Diverticulitis FHx: total knee replacement Surgical History S/P hip replacement H/O shoulder replacement Social History Housing: Other Housing Other:: Mobile home Patient Tobacco Use Status: Former Tobacco user Tobacco use type: Cigarette Years Smoked: 16 years total. Smoked socially. quit 25 years ago e-Cigarette/Vaping Use: Never Used Second Hand Smoke Exposure: Yes service: No Current occupational status: retired Cognitive needs: No Hearing needs: No Vision needs: No Questionnaire Thrive Questionnaire Date Thrive assessed: 06/08/23 MAYTE-7 AMB Questionnaire MAYTE-7 Date MAYTE - 7 assessed: 06/08/23 Source: Developed by Drs. Johnathan Landeros, Yanelis Maldonado, Dutch Vogel and colleagues, with an educational rambo from [employer]. Physical exam (Primary Care) Vital Signs: Last Vital Signs Temp 98.0 F 07/20/23 14:11 Pulse 67 07/20/23 14:11 BP 140/74 H 07/20/23 14:16 Pulse Ox 96 07/20/23 14:11 Oxygen Delivery Method Room Air 07/20/23 14:11 BMI result Body Mass Index 31.7 Tobacco/Smoking Status: Tobacco use Status Tobacco use date assessed 07/06/23 07/20/23 14:13 Patient Tobacco Use Status Former Tobacco user 07/20/23 14:13 Tobacco use type Cigarette 07/20/23 14:13 e-Cigarette/Vaping Use Never Used 07/20/23 14:13 Thrive Assessment: Date of Thrive Assessment Date Thrive assessed 06/08/23 07/20/23 14:13 Const Orientation/consciousness: patient oriented x3 HENMT Ears: hearing grossly normal bilaterally Neck Thyroid: Thyroid normal Lymphatic: no lymphadenopathy noted Resp Auscultation: clear to auscultation bilaterally Cardio Rate: regular rate Rhythm: regular rhythm Heart sounds: S1 normal heart sound present and S2 normal heart sound present GI Inspection: Yes normal to inspection Palpation (GI): Soft to palpation and Other GI palpation findings present (nontender, no cva tenderness) Auscultation: normoactive bowel sounds Rectal Exam - Female: deferred Skin General skin exam: no rashes or lesions noted Neuro General: patient oriented x3, gait normal and no focal motor deficits Results Reviewed Results Reviewed: Laboratory Tests 07/19/23 11:19 WBC 4.3 L RBC 3.72 L Hgb 11.7 L Hct 34.8 L Plt Count 221 Sodium 133 L Potassium 4.0 Chloride 99 Carbon Dioxide 24 Anion Gap 14 BUN 12 Creatinine 0.71 Estimated GFR > 60 Random Glucose 93 Calcium 10.3 H Magnesium 1.8 AST 28 ALT 19 Alkaline Phosphatase 84 Total Protein 7.6 Albumin 4.2 Triglycerides 107 Cholesterol 190 LDL Cholesterol, Calc 97 HDL Cholesterol 72 TSH 1.68 Assessment and Plan Assessment & Plan (1) Anemia, unspecified: Code(s): D64.9 - Anemia, unspecified Plan: labs ordered today (2) Hypercalcemia: Code(s): E83.52 - Hypercalcemia Plan: labs ordered. will monitor (3) Hyponatremia: Code(s): E87.1 - Hypo-osmolality and hyponatremia Plan: as above will recheck next week (4) HTN (hypertension), benign: Code(s): I10 - Essential (primary) hypertension Plan: continue current plan (5) Depression, major, recurrent, moderate: Code(s): F33.1 - Major depressive disorder, recurrent, moderate Plan: d/c cymbalta due to itching (6) Generalized anxiety disorder: Code(s): F41.1 - Generalized anxiety disorder Plan: as above she is doing her intake with [facility] tomorrow. Plan will follow up in one month. Orders: Orders IRON PROFILE Today D64.9 - Anemia, unspecified, E83.52 - Hypercalcemia, E87.1 - Hypo-osmolality and hyponatremia Ferritin Today D64.9 - Anemia, unspecified, E83.52 - Hypercalcemia, E87.1 - Hypo-osmolality and hyponatremia Basic Metabolic Panel Today D64.9 - Anemia, unspecified, E83.52 - H ypercalcemia, E87.1 - Hypo-osmolality and hyponatremia Vitamin B12 and Folate Today D64.9 - Anemia, unspecified, E83.52 - Hypercalcemia, E87.1 - Hypo-osmolality and hyponatremia Parathyroid Hormone Intact Today D64.9 - Anemia, unspecified, E83.52 - Hypercalcemia, E87.1 - Hypo-osmolality and hyponatremia Vitamin D 25-OH Total Today D64.9 - Anemia, unspecified, E83.52 - Hypercalcemia, E87.1 - Hypo-osmolality and hyponatremia Calcium, Ionized Today D64.9 - Anemia, unspecified, E83.52 - Hypercalcemia, E87.1 - Hypo-osmolality and hyponatremia Medications: Discontinued duloxetine (Cymbalta) Discontinued Reason: Doctor's Order 20 mg PO BID 30 days 60 caps 2RF Coding Level of Care Code Est Pt Level 4 (63653) Complex EM visit Add On G2211 Diagnoses Anemia, unspecified D64.9 Hypercalcemia E83.52 Hyponatremia E87.1 HTN (hypertension), benign I10 Depression, major, recurrent, moderate F33.1 Generalized anxiety disorder F41.1
[2023-07-20 14:11] VITALS: BP 146/78; PULSE 67; TEMP 36.7; O2SAT 96; BMI 31.7
[2023-07-20 14:16] VITALS: BP 140/74
== END 2023-07-20 15:57 | disposition home or self-care (01) ==
PROVIDERS: PCP Physician Assistant; Visit Provider Physician Assistant
DX: D64.9 Anemia, unspecified (principal); F33.1 Major depressive disorder, recurrent, moderate; E87.1 Hypo-osmolality and hyponatremia; E83.52 Hypercalcemia; I10 Essential (primary) hypertension; F41.1 Generalized anxiety disorder
CPT/HCPCS: 99214; G2211

== ENCOUNTER 2023-08-02 13:09 | Outpatient (AMB) | payer MEDICARE, MEDICAID, SELFPAY ==
--- NOTE | 2023-08-02 13:13 | MHC.PC.OV ---
Vital Signs 08/02/23 13:16 Height 5 ft 3.5 in Weight 181 lb BMI 31.6 BP 118/57 L Blood Pressure Location Lt brachial Position Sitting Pulse 63 Pulse Source Pulse Oximeter Temp 95.9 F L Temp Source Temporal Artery Scan Pulse Oximetry (%) 97 Oxygen Delivery Method Room Air Intake Visit Reasons: labs and d/c cymbalta, ? allergy Intake Note: Follow up on medication. Did not get labs done yet. [employer]le [employer] D[employer] Required: No Allergies codeine Allergy (Intermediate, Verified 08/02/23 13:14) headache duloxetine [From Cymbalta] Allergy (Mild, Verified 08/02/23 13:27) Itching Medication List - Last Reconciled 08/02/23 by Ayesha Marroquin PA-C albuterol sulfate 90 mcg/actuation inhalation amitriptyline 10 mg PO BEDTIME atorvastatin 40 mg PO DAILY biotin mcg PO budesonide 180 mcg/actuation (Pulmicort Flexhaler) 2 inhalations inhalation BID buspirone 5 mg PO TID cholecalciferol (vitamin D3) 50 mcg PO DAILY diclofenac sodium 1% topical docusate sodium 100 mg PO BID lisinopril 10 mg PO DAILY mecobalamin (vitamin B12) mcg PO meloxicam 15 mg PO DAILY metoprolol succinate ER 50 mg PO BID nb-pnb-pxzaq-calcium carb-K1 400 mcg-500 mg calcium-20 mcg (Women's 50 Plus Multivitamin) tabs PO pantoprazole 40 mg PO DAILY pyridoxine (vitamin B6) 100 mg PO DAILY sertraline 150 mg PO Q24H simethicone 80 mg PO Q6H PRN sucralfate 1 g PO BID triamcinolone acetonide 0.025% 1 appl topical BID vit C,E,Zn,Ox-yfdds2-icn-zeax 250-2.5-0.5 mg caps PO Tobacco use date assessed: 07/06/23 Dental Screening Dental Screen Date: 06/08/23 HPI labs and d/c cymbalta, ? allergy HPI Details Patient is an 78-year-old female with a significant past medical history of hypertension, hyperlipidemia, arthritis, anxiety, depression, fibromyalgia, GERD and IBS presenting today for a follow up for itching/dc her cymbalta. She started itching after starting cymbalta. applying triamcinolone cream without significant improvement. itching was widespread. advised for benadryl and discontinuing drug. Forgot to get her labs rechecked prior. States she will do this today. CV: Blood pressure today in the office is 118/57. She is taking Lisinopril 10 mg and metoprolol 50 mg BID. he is following with Dr. Lynn. She has follow up arranged this summer and is going for a diagnostic cath per pt. Denies any current cp. She does get cp and sob with exertion. this is currently unchanged. doing well with the atorvastatin. remains on aspirin. GI: She is on pantroprazole daily and it is helpful. She was following with Dr. Grossman and was seen 4 years ago for a double endoscopy. She is going to be seeing [facility] this summer. She does still get breakthrough GERD. Endo: Following with endo for osteoporosis. She states that they are going to possibly start prolia. Psych: She is currently on sertraline 150 mg and trazodone 50 mg nightly. wants to use buspar prn (1-3 x a week for anxiety). She is still feeling very tired. Never got the sleep study. She goes to bed no problem with the trazodone but wakes up very groggy. She is taking naps during the day. She has always had issues with depression and wonders if that is part of it. She states her children and grandchildren used to be very much in her life and now she lives alone. Musculoskeletal: Following with ortho, Dr. Funez, for hips and knees. Cymbalta was helpful but caused itching. Gabapentin upsets her stomach. Wants to try something different. Colonoscopy:2019- Dr. Grossman Mammo:overdue- was ordered at last visit Immunizations: UTD Bone Density: UTD, -osteoporosis [facility] Medical History (Updated 08/02/23 @ 13:40 by Ayesha Marroquin PA-C) Insomnia Chronic fatigue IBS (irritable bowel syndrome) GERD (gastroesophageal reflux disease) Osteoporosis Fibromyalgia Depression, major, recurrent, moderate Generalized anxiety disorder CAD (coronary artery disease) Hyperlipidemia HTN (hypertension), benign Diverticulitis FHx: total knee replacement Surgical History S/P hip replacement H/O shoulder replacement Social History Housing: Other Housing Other:: Mobile home Patient Tobacco Use Status: Former Tobacco user Tobacco use type: Cigarette Years Smoked: 16 years total. Smoked socially. quit 25 years ago e-Cigarette/Vaping Use: Never Used Second Hand Smoke Exposure: Yes service: No Current occupational status: retired Cognitive needs: No Hearing needs: No Vision needs: No Questionnaire Thrive Questionnaire Date Thrive assessed: 06/08/23 MAYTE-7 AMB Questionnaire MAYTE-7 Date MAYTE - 7 assessed: 06/08/23 Source: Developed by Drs. Johnathan Landeros, Yanelis Maldonado, Dutch Vogel and colleagues, with an educational rambo from [employer]. Physical exam (Primary Care) Vital Signs: Last Vital Signs Temp 95.9 F L 08/02/23 13:16 Pulse 63 08/02/23 13:16 BP 118/57 L 08/02/23 13:16 Pulse Ox 97 08/02/23 13:16 Oxygen Delivery Method Room Air 08/02/23 13:16 BMI result Body Mass Index 31.6 Tobacco/Smoking Status: Tobacco use Status Tobacco use date assessed 07/06/23 08/02/23 13:19 Patient Tobacco Use Status Former Tobacco user 08/02/23 13:19 Tobacco use type Cigarette 08/02/23 13:19 e-Cigarette/Vaping Use Never Used 08/02/23 13:19 Thrive Assessment: Date of Thrive Assessment Date Thrive assessed 06/08/23 08/02/23 13:19 Const Orientation/consciousness: patient oriented x3 HENMT Ears: hearing grossly normal bilaterally Neck Thyroid: Thyroid normal Lymphatic: no lymphadenopathy noted Resp Auscultation: clear to auscultation bilaterally Cardio Rate: regular rate Rhythm: regular rhythm Heart sounds: S1 normal heart sound present and S2 normal heart sound present GI Inspection: Yes normal to inspection Palpation (GI): Soft to palpation and Other GI palpation findings present (nontender, no cva tenderness) Auscultation: normoactive bowel sounds Rectal Exam - Female: deferred Skin General skin exam: no rashes or lesions noted Neuro General: patient oriented x3, gait normal and no focal motor deficits Assessment and Plan Assessment & Plan (1) Chronic fatigue: Code(s): R53.82 - Chronic fatigue, unspecified Plan: sleep study ordered. will switch from trazodone to amitriptyline. (2) Depression, major, recurrent, moderate: Code(s): F33.1 - Major depressive disorder, recurrent, moderate Plan: stable. continue sertraline and buspar prn (3) Generalized anxiety disorder: Code(s): F41.1 - Generalized anxiety disorder Plan: as above. supposed to be following with chd. (4) Insomnia: Code(s): G47.00 - Insomnia, unspecified Qualifiers: Insomnia type: unspecified Qualified Code(s): G47.00 - Insomnia, unspecified Plan: will d/c trazodone as she wakes up very groggy and tired. will try amitriptyline. discussed risks and benefits and adverse effects. advised to seek emergent medical treatment if any SI/HI. Plan advised to get labs done today. Orders: Orders RT home sleep study Today G47.00 - Insomnia, unspecified, R53.82 - Chronic fatigue, unspecified Medications: New amitriptyline 10 mg PO BEDTIME 30 tabs 2RF Changed From diclofenac sodium 1% topical To diclofenac sodium 1% 4 grams topical QID PRN 100 grams 5RF pain Coding Level of Care Code Est Pt Level 4 (89471) Complex EM visit Add On G2211 Diagnoses Chronic fatigue R53.82 Depression, major, recurrent, moderate F33.1 Generalized anxiety disorder F41.1 Insomnia, unspecified type G47.00 Insomnia type: unspecified
[2023-08-02 13:16] VITALS: BP 118/57; PULSE 63; TEMP 35.5; O2SAT 97; BMI 31.6
== END 2023-08-02 13:49 | disposition home or self-care (01) ==
PROVIDERS: PCP Physician Assistant; Visit Provider Physician Assistant
DX: R53.82 Chronic fatigue, unspecified (principal); F33.1 Major depressive disorder, recurrent, moderate; F41.1 Generalized anxiety disorder; G47.00 Insomnia, unspecified
CPT/HCPCS: 99214; G2211

== ENCOUNTER 2023-08-02 14:01 | Outpatient (REF) | payer MEDICARE, SELFPAY ==
[2023-08-02 19:12] LABS: Anion Gap 15 (12-20); Blood Urea Nitrogen 15 mg/dL (9-16); Calcium 10.1 mg/dL (8.4-10.2); Carbon Dioxide 24 mmol/L (22-29); Chloride 102 mmol/L (96-108); Estimated Glomerular Filt Rate > 60; Glucose Random 102 mg/dL (60-115); Iron 88 mcg/dL (30-160); Percent Iron Saturation 31 % (15-50); Potassium 4.5 mmol/L (3.3-5.1); Sodium 136 mmol/L (135-145); Total Iron Binding Capacity 281 mcg/dL (228-428); Unsaturated Iron Binding 193 ug/dL
[2023-08-02 19:28] LABS: Ferritin 67 ng/mL (10-250); Vitamin D 25-OH Total 59.6 ng/mL (>30)
[2023-08-02 19:38] LABS: Folate 12.3 ng/mL (> or = 4.0); Vitamin B12 > 2000 pg/mL (200-900)
[2023-08-03 05:28] LABS: Parathyroid Hormone Intact 105.7 pg/mL (8.7-77.1)
[2023-08-04 21:02] LABS: Calcium, Ionized 5.1 mg/dL (4.7-5.5)
== END 2023-08-02 14:02 | disposition home or self-care (01) ==
LOC: HO.WFDLDS 14:01
PROVIDERS: Visit Provider Physician Assistant
DX: E87.1 Hypo-osmolality and hyponatremia (principal); E83.52 Hypercalcemia; D64.9 Anemia, unspecified
CPT/HCPCS: 36415; 80048; 82306; 82330; 82607; 82728; 82746; 83540; 83970

== ENCOUNTER 2023-08-09 14:55 | Outpatient (AMB) | payer MEDICARE, MEDICAID, SELFPAY ==
--- NOTE | 2023-08-09 14:41 | A.OFFPC_ITS ---
Intake Visit Reasons: Discuss labs, pt request Intake Note: Discuss labs. Discuss going back on Trazadone since she stopped the Amytriptyline. Allergies codeine Allergy (Intermediate, Verified 08/02/23 13:14) headache duloxetine [From Cymbalta] Allergy (Mild, Verified 08/02/23 13:27) Itching Medication List - Last Reconciled 08/09/23 by Ayesha Marroquin PA-C albuterol sulfate 90 mcg/actuation inhalation atorvastatin 40 mg PO DAILY biotin mcg PO budesonide 180 mcg/actuation (Pulmicort Flexhaler) 2 inhalations inhalation BID buspirone 5 mg PO TID chlorthalidone 25 mg PO DAILY cholecalciferol (vitamin D3) 50 mcg PO DAILY diclofenac sodium 1% 4 grams topical QID PRN docusate sodium 100 mg PO BID isosorbide mononitrate ER 30 mg PO DAILY lisinopril 20 mg PO DAILY mecobalamin (vitamin B12) mcg PO meloxicam 15 mg PO DAILY metoprolol succinate ER 50 mg PO BID tj-eop-itmgh-calcium carb-K1 400 mcg-500 mg calcium-20 mcg (Women's 50 Plus Multivitamin) tabs PO pantoprazole 40 mg PO DAILY pyridoxine (vitamin B6) 100 mg PO DAILY sertraline 150 mg PO Q24H simethicone 80 mg PO Q6H PRN sucralfate 1 g PO BID triamcinolone acetonide 0.025% 1 appl topical BID vit C,E,Zn,Ak-agvzm1-jin-zeax 250-2.5-0.5 mg caps PO Tobacco use date assessed: 07/06/23 Dental Screening Dental Screen Date: 06/08/23 HPI Discuss labs, pt request HPI Details Patient is an 78-year-old female with a significant past medical history of hypertension, hyperlipidemia, arthritis, anxiety, depression, fibro myalgia, GERD and IBS presenting today for a follow up. -at our last visit we trialed on amitrip tyline for fibromyalgia and depression. Did not tolerate this medication. She wants to go back on lorazepam Endo: Following with endo for osteoporosis. She states that they are going to possibly start prolia. Psych: She is currently on sertraline 150 mg and trazodone 50 mg nightly. wants to use buspar prn (1-3 x a week for anxiety). She is still feeling very tired. Never got the sleep study. She goes to bed no problem with the trazodone but wakes up very groggy. She is taking naps during the day. She has always had issues with depression and wonders if that is part of it. She states her children and grandchildren used to be very much in her life and now she lives alone. Musculoskeletal: Following with ortho, Dr. Funez, for hips and knees. Cymbalta was helpful but caused itching. Gabapentin upsets her stomach. Colonoscopy:2019- Dr. Grossman Mammo:overdue- was ordered at last visit Immunizations: UTD Bone Density: UTD, -osteoporosis [facility] Medical History (Updated 08/09/23 @ 16:12 by Ayesha Marroquin PA-C) Insomnia Chronic fatigue IBS (irritable bowel syndrome) GERD (gastroesophageal reflux disease) Osteoporosis Fibromyalgia Depression, major, recurrent, moderate Generalized anxiety disorder CAD (coronary artery disease) Hyperlipidemia HTN (hypertension), benign Diverticulitis FHx: total knee replacement Surgical History S/P hip replacement H/O shoulder replacement Social History Housing: Other Housing Other:: Mobile home Patient Tobacco Use Status: Former Tobacco user Tobacco use type: Cigarette Years Smoked: 16 years total. Smoked socially. quit 25 years ago e-Cigarette/Vaping Use: Never Used Second Hand Smoke Exposure: Yes service: No Current occupational status: retired Cognitive needs: No Hearing needs: No Vision needs: No Questionnaire Thrive Questionnaire Date Thrive assessed: 06/08/23 MAYTE-7 AMB Questionnaire MAYTE-7 Date MAYTE - 7 assessed: 06/08/23 Source: Developed by Drs. Johnathan Landeros, Yanelis Maldonado, Dtuch Vogel and colleagues, with an educational rambo from [employer]. Physical exam (Primary Care) Tobacco/Smoking Status: Tobacco use Status Tobacco use date assessed 07/06/23 08/09/23 14:46 Patient Tobacco Use Status Former Tobacco user 08/09/23 14:46 Tobacco use type Cigarette 08/09/23 14:46 e-Cigarette/Vaping Use Never Used 08/09/23 14:46 Thrive Assessment: Date of Thrive Assessment Date Thrive assessed 06/08/23 08/09/23 14:46 Telehealth Telehealth Telehealth Platform: Telephone Location of provider rendering services: practice address Location of patient: address on file Patient Identification confirmed using: Name, : Yes Telehealth method: voice only Patient verbally consented to treatment: Yes Patient verbally consented to billing insurance company: Yes Patient informed of any privacy concerns related to visit: Yes Results Reviewed Results Reviewed: Laboratory Tests 07/19/23 08/02/23 11:19 14:03 Calcium 10.1 Ionized Calcium 5.1 Vitamin B12 > 2000 H 25-OH Vitamin D Total 59.6 Folate 12.3 TSH 1.68 PTH Intact 105.7 H Assessment and Plan Assessment & Plan (1) Insomnia: Code(s): G47.00 - Insomnia, unspecified Qualifiers: Insomnia type: unspecified Qualified Code(s): G47.00 - Insomnia, unspecified Plan: will restart lorazepam. discussed risks and benefits and adverse effects again including risks of dependence, sedation,etc. (2) Hyperparathyroidism: Code(s): E21.3 - Hyperparathyroidism, unspecified Plan: Follows with endocrinology Medications: New lorazepam 0.5 mg PO BEDTIME PRN 30 tabs 0RF anxiety 30 days Ayesha Marroquin PA-C Changed From lisinopril 10 mg PO DAILY 30 tabs 0RF To lisinopril 20 mg PO DAILY LIYA BonillaP-BC Coding Level of Care Code Tele Est Pt Level 2 (71922) Diagnoses Insomnia, unspecified type G47.00 Insomnia type: unspecified Hyperparathyroidism E21.3
== END 2023-08-09 16:17 | disposition home or self-care (01) ==
LOC: HO.HMGFM 14:55
PROVIDERS: PCP Physician Assistant; Visit Provider Physician Assistant
DX: G47.00 Insomnia, unspecified (principal); E21.3 Hyperparathyroidism, unspecified
CPT/HCPCS: 99442

== ENCOUNTER 2023-09-07 14:08 | Outpatient (AMB) | payer MEDICARE, MEDICAID, SELFPAY ==
--- NOTE | 2023-09-07 14:20 | MHC.PC.OV ---
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: No Allergies codeine Allergy (Intermediate, Verified 09/07/23 14:27) headache duloxetine [From Cymbalta] Allergy (Mild, Verified 09/07/23 14:27) Itching Medication List - Last Reconciled 09/07/23 by Ayesha Marroquin PA-C albuterol sulfate 90 mcg/actuation inhalation atorvastatin 40 mg PO DAILY biotin mcg PO budesonide 180 mcg/actuation (Pulmicort Flexhaler) 2 inhalations inhalation BID buspirone 5 mg PO TID cholecalciferol (vitamin D3) 50 mcg PO DAILY diclofenac sodium 1% 4 grams topical QID PRN docusate sodium 100 mg PO BID isosorbide mononitrate ER 30 mg PO DAILY lorazepam 0.5 mg PO BEDTIME PRN 30 days mecobalamin (vitamin B12) mcg PO meloxicam 15 mg PO DAILY metoprolol tartrate 12.5 mg PO BID lq-lku-jjysh-calcium carb-K1 400 mcg-500 mg calcium-20 mcg (Women's 50 Plus Multivitamin) tabs PO pantoprazole 40 mg PO DAILY pyridoxine (vitamin B6) 100 mg PO DAILY sertraline 150 mg PO Q24H simethicone 80 mg PO Q6H PRN sucralfate 1 g PO BID vit C,E,Zn,Jx-omydk5-wev-zeax 250-2.5-0.5 mg caps PO Tobacco use date assessed: 07/06/23 Dental Screening Dental Screen Date: 06/08/23 HPI Follow up- insomnia HPI Details Patient is an 78-year-old female with a significant past medical history of hypertension, hyperlipidemia, anxiety, anemia, COPD who presents today for a hospital follow up from August 20-August 27 at [facility] [place] She was recently admitted for hyponatremia and was told to stop the chlorthalidone and to fluid restrict to 1.5 L a day. cv: She is feeling a lot better since stopping the chlorthalidone and being on the imdur. She states since the hospital she is feeling great. She states they even reduced the metoprolol. she was also d/cd on the lisinopril. she is going for a cardiac cath 10/10. nephro: recent hospitalization for hyponatremia and told to fluid restrict. she was discontinued on the urea. states she has not seen nephrology since hospital. psych: feeling a lot better with lorazepam. she is stable with the sertraline and buspar. No si/hi. [facility] Medical History (Updated 09/07/23 @ 15:23 by Ayesha Marroquin PA-C) Insomnia Chronic fatigue IBS (irritable bowel syndrome) GERD (gastroesophageal reflux disease) Osteoporosis Fibromyalgia Depression, major, recurrent, moderate Generalized anxiety disorder CAD (coronary artery disease) Hyperlipidemia HTN (hypertension), benign Diverticulitis FHx: total knee replacement Surgical History S/P hip replacement H/O shoulder replacement Social History Housing: Other Housing Other:: Mobile home Patient Tobacco Use Status: Former Tobacco user Tobacco use type: Cigarette Years Smoked: 16 years total. Smoked socially. quit 25 years ago e-Cigarette/Vaping Use: Never Used Second Hand Smoke Exposure: Yes service: No Current occupational status: retired Cognitive needs: No Hearing needs: No Vision needs: No Questionnaire Thrive Questionnaire Date Thrive assessed: 06/08/23 MAYTE-7 AMB Questionnaire MAYTE-7 Date MAYTE - 7 assessed: 06/08/23 Source: Developed by Drs. Johnathan Landeros, Yanelis Maldonado, Dutch Vogel and colleagues, with an educational rambo from [email or web address]. Physical exam (Primary Care) Vital Signs: Last Vital Signs Pulse 67 09/07/23 14:28 BP 136/74 09/07/23 14:28 Pulse Ox 97 09/07/23 14:28 Oxygen Delivery Method Room Air 09/07/23 14:28 Tobacco/Smoking Status: Tobacco use Status Tobacco use date assessed 07/06/23 09/07/23 14:29 Patient Tobacco Use Status Former Tobacco user 09/07/23 14:29 Tobacco use type Cigarette 09/07/23 14:29 e-Cigarette/Vaping Use Never Used 09/07/23 14:29 Thrive Assessment: Date of Thrive Assessment Date Thrive assessed 06/08/23 09/07/23 14:29 Const Orientation/consciousness: patient oriented x3 HENMT Ears: hearing grossly normal bilaterally Neck Thyroid: Thyroid normal Lymphatic: no lymphadenopathy noted Resp Auscultation: clear to auscultation bilaterally Cardio Rate: regular rate Rhythm: regular rhythm Heart sounds: S1 normal heart sound present and S2 normal heart sound present GI Inspection: Yes normal to inspection Palpation (GI): Soft to palpation and Other GI palpation findings present (nontender, no cva tenderness) Auscultation: normoactive bowel sounds Rectal Exam - Female: deferred Skin General skin exam: no rashes or lesions noted Neuro General: patient oriented x3, gait normal and no focal motor deficits Assessment and Plan Assessment & Plan (1) Hospital discharge follow-up: Code(s): Z09 - Encounter for follow-up examination after completed treatment for conditions other than malignant neoplasm Plan: medications reconciled. hospital notes reviewed along with labs. (2) HTN (hypertension), benign: Code(s): I10 - Essential (primary) hypertension Plan: wnl continue current treatment plan (3) Hyponatremia: Code(s): E87.1 - Hypo-osmolality and hyponatremia Plan: referral to nephrology placed. continue fluid restriction. reviewed and reconciled meds today. will check labs today. (4) Depression, major, recurrent, moderate: Code(s): F33.1 - Major depressive disorder, recurrent, moderate Plan: well controlled. Orders: Orders Complete Blood Count Auto Diff Today E87.1 - Hypo-osmolality and hyponatremia Basic Metabolic Panel Today E87.1 - Hypo-osmolality and hyponatremia Referrals Nephrology Referral E87.1 - Hypo-osmolality and hyponatremia, I10 - Essential (primary) hypertension Coding Level of Care Code TCM Mod MDM <= 14 Days Diagnoses Hospital discharge follow-up Z09 HTN (hypertension), benign I10 Hyponatremia E87.1 Depression, major, recurrent, moderate F33.1
[2023-09-07 14:28] VITALS: BP 136/74; PULSE 67; O2SAT 97
== END 2023-09-07 15:39 | disposition home or self-care (01) ==
PROVIDERS: PCP Physician Assistant; Visit Provider Physician Assistant
DX: I10 Essential (primary) hypertension (principal); Z09 Encounter for follow-up examination after completed treatment for conditions other than malignant neoplasm; E87.1 Hypo-osmolality and hyponatremia; F33.1 Major depressive disorder, recurrent, moderate
CPT/HCPCS: 99214

== ENCOUNTER 2023-09-07 15:37 | Outpatient (REF) | payer MEDICARE, MEDICAID, SELFPAY ==
[2023-09-07 17:34] LABS: MANUAL DIFF FLAG NO
[2023-09-07 17:49] LABS: Basophils Percent Auto 0.7 % (0-2); Eosinophils Absolute Auto 0.1 X10*3/uL (0.0-0.4); Eosinophils Percent Auto 3.2 % (0-4); Hematocrit 29.7 % (37.0-47.0); Hemoglobin 9.8 g/dl (12.0-16.0); Imm Gran Abs Auto 0.01 X10*3/uL (0.00-0.03); Imm Gran Pct Auto 0.2 % (0.0-0.4); Lymphocytes Absolute Auto 1.6 X10*3/uL (1.2-4.9); Lymphocytes Percent Auto 36.6 % (20-40); Mean Corpuscular Hemoglobin 31.5 pg (27.0-33.0); Mean Corpuscular Volume 95.5 fL (80.0-98.0); Mean Platelet Volume 9.7 fL (9.4-12.3); Monocytes Absolute Auto 0.5 X10*3/uL (0.1-1.2); Monocytes Percent Auto 11.5 % (2-11); Neutrophils Absolute Auto 2.1 x10*3/uL (2.0-8.3); Neutrophils Percent Auto 47.8 % (45-73); Platelet Count 212 X10*3/uL (160-400); Red Blood Count 3.11 X10*6/uL (4.20-5.50); White Blood Count 4.4 X10*3/uL (4.8-10.8)
[2023-09-07 18:33] LABS: Anion Gap 11 (12-20); Blood Urea Nitrogen 16 mg/dL (9-16); Calcium 10.2 mg/dL (8.4-10.2); Carbon Dioxide 25 mmol/L (22-29); Chloride 104 mmol/L (96-108); Estimated Glomerular Filt Rate > 60; Glucose Random 84 mg/dL (60-115); Potassium 4.2 mmol/L (3.3-5.1); Sodium 136 mmol/L (135-145)
[2023-09-15 21:04] LABS: Prothrombin 20210A NEGATIVE
== END 2023-09-07 15:38 | disposition home or self-care (01) ==
LOC: HO.WFDLDS 15:37
PROVIDERS: Internal Medicine Cardiovascular Disease; Visit Provider Physician Assistant
DX: I10 Essential (primary) hypertension (principal); E87.1 Hypo-osmolality and hyponatremia
CPT/HCPCS: 36415; 80048; 81240; 85025

== ENCOUNTER 2023-10-04 14:49 | Outpatient (AMB) | payer MEDICARE, MEDICAID, SELFPAY ==
--- NOTE | 2023-10-04 14:53 | HO.NEPHOV ---
Vital Signs 10/04/23 14:58 Height 5 ft 3.5 in Weight 182 lb 6 oz BMI 31.8 BP 112/60 Blood Pressure Location Lt brachial Position Sitting Pulse 73 Pulse Source Pulse Oximeter Pulse Oximetry (%) 97 Oxygen Delivery Method Room Air Intake Visit Reasons: Hypertension,Hypo-osmolality and hyponatremia Transit Mechanic Required: No Accompanied by: Self / Same As Patient Allergies codeine Allergy (Intermediate, Verified 10/04/23 15:00) headache duloxetine [From Cymbalta] Allergy (Mild, Verified 10/04/23 15:00) Itching HPI Comments Details: I had the pleasure seeing Rose in consultation for history of hyponatremia, hypertension and hyperparathyroidism. She recently had profound low-sodium and needing hospitalization following initiation of Chlorthalidone. She did not have any nausea, vomiting or diarrhea that time. She was on a low solute diet. She did not need hypertonic saline or tolvaptan during the hospitalization. She was treated with oral urea and fluid restriction with improvement in serum sodium. She has had no edema, history of renal failure, liver failure. She denies polydipsia. She has history of depression and had been on antidepressant medications. She is due to have a cardiac catheterization soon as part of cardiac W/U for SOB. Her blood pressure had been labile but is better controlled on current medication regimen. She has no history of hyperkalemia or [place]'s disease. She denies taking excessive nonsteroidal anti-inflammatories. She was bitten by a hornet on the dorsum of her right hand with resultant swelling of the dorsum of that hand extending on to the right forearm. [facility] Medical History (Updated 10/04/23 @ 15:25 by Ajay Tomlinson MD) Insomnia Chronic fatigue IBS (irritable bowel syndrome) GERD (gastroesophageal reflux disease) Osteoporosis Fibromyalgia Depression, major, recurrent, moderate Generalized anxiety disorder CAD (coronary artery disease) Hyperlipidemia HTN (hypertension), benign Diverticulitis FHx: total knee replacement Surgical History S/P hip replacement H/O shoulder replacement Social History Housing: Other Housing Other:: Mobile home Patient Tobacco Use Status: Former Tobacco user Tobacco use type: Cigarette Years Smoked: 16 years total. Smoked socially. quit 25 years ago e-Cigarette/Vaping Use: Never Used Second Hand Smoke Exposure: Yes service: No Current occupational status: retired Cognitive needs: No Hearing needs: No Vision needs: No Review of Systems Const All systems reviewed & are unremarkable except as noted in HPI and below Physical Exam Vital Signs: Last Vital Signs Pulse 73 10/04/23 14:58 BP 112/60 10/04/23 14:58 Pulse Ox 97 10/04/23 14:58 Oxygen Delivery Method Room Air 10/04/23 14:58 BMI result Body Mass Index 31.8 Const General: comfortable and no acute distress Orientation/consciousness: patient oriented x3 HEENT Head: Yes normocephalic Mouth: Normal oral and palatal mucosa present Eyes EOM: EOMs intact bilaterally Neck Neck: Yes supple Resp Auscultation: clear to auscultation bilaterally Cardio Jugular venous distension: no JVD Rate: regular rate GI Palpation (GI): Soft to palpation Auscultation: normal bowel sounds General: Yes no CVA tenderness Back/Spine/Pelvis Back: no CVA tenderness Skin General skin exam: no rashes or lesions noted Neuro General: patient oriented x3 and moves all extremities Extrem General: Yes no pedal edema Results Reviewed Nephrology Results: Hgb 9.8 g/dl (12.0-16.0) L 09/07/23 WBC 4.4 X10*3/uL (4.8-10.8) L 09/07/23 Plt Count 212 X10*3/uL (160-400) 09/07/23 Sodium 136 mmol/L (135-145) 09/07/23 Potassium 4.2 mmol/L (3.3-5.1) 09/07/23 Chloride 104 mmol/L (96-108) 09/07/23 Carbon Dioxide 25 mmol/L (22-29) 09/07/23 BUN 16 mg/dL (9-16) 09/07/23 Creatinine 0.80 mg/dL (0.5-1.4) 09/07/23 Calcium 10.2 mg/dL (8.4-10.2) 09/07/23 PTH Intact 105.7 pg/mL (8.7-77.1) H 08/02/23 Assessment & Plan Assessment & Plan (1) Hyperparathyroidism: Code(s): E21.3 - Hyperparathyroidism, unspecified Category: Medical (2) Hyponatremia: Code(s): E87.1 - Hypo-osmolality and hyponatremia Category: Medical (3) Hypercalcemia: Code(s): E83.52 - Hypercalcemia Category: Medical (4) HTN (hypertension), benign: Code(s): I10 - Essential (primary) hypertension Category: Medical (5) Hornet sting: Code(s): T63.451A - Toxic effect of venom of hornets, accidental (unintentional), initial encounter Category: Medical Qualifiers: Encounter type: initial encounter Injury intent: accidental or unintentional Qualified Code(s): T63.451A - Toxic effect of venom of hornets, accidental (unintentional), initial encounter Plan Rose had hyponatremia due to multifactorial etiology. She likely had excess ADH at baseline due to her history of depression as well as some of her medications. It was compounded by addition of chlorthalidone as well as low solute diet. She recently need hospitalization with a profound hyponatremia. At that time her chlorthalidone was discontinued and she was treated with oral urea as well as fluid restriction with improvement in her serum sodium. She does not have any mentation changes or weakness now. She is not hyperkalemic. She is not known to have uncontrolled thyroid disorders or [place]'s disease. Her serum sodium has improved since. She should maintain on fluid restriction. She has longstanding hypertension which is controlled on current medication regimen. She will benefit from sestamibi scan to rule out parathyroid adenoma given hypercalcemia and high PTH, which may be contributing to her hypertension. I had given her Prednisone 20 mg daily for 5 days for her reaction from Hornet sting. I did not make any other medication changes at this visit but rather discussed all these issues in detail and arranged a follow-up for continued care. Time spent retrieving records, encounter and documentation 62 mts. Answered all questions. Orders: Orders Creatinine Today E21.3 - Hyperparathyroidism, unspecified, E83.52 - Hypercalcemia, E87.1 - Hypo-osmolality and hyponatremia, T63.451A - Toxic effect of venom of hornets, accidental (unintentional), initial encounter Electrolytes Today E21.3 - Hyperparathyroidism, unspecified, E83.52 - Hypercalcemia, E87.1 - Hypo-osmolality and hyponatremia, T63.451A - Toxic effect of venom of hornets, accidental (unintentional), initial encounter Blood Urea Nitrogen Today E21.3 - Hyperparathyroidism, unspecified, E83.52 - Hypercalcemia, E87.1 - Hypo-osmolality and hyponatremia, T63.451A - Toxic effect of venom of hornets, accidental (unintentional), initial encounter Calcium Today E21.3 - Hyperparathyroidism, unspecified, E83.52 - Hypercalcemia, E87.1 - Hypo-osmolality and hyponatremia, T63.451A - Toxic effect of venom of hornets, accidental (unintentional), initial encounter Medications: New prednisone 20 mg PO DAILY 5 tabs 0RF Coding Level of Care Code New Pt Level 5 (05686) Diagnoses Hyperparathyroidism E21.3 Hyponatremia E87.1 Hypercalcemia E83.52 HTN (hypertension), benign I10 Hornet sting, accidental or unintentional, initial encounter T63.451A Encounter type: initial encounter Injury intent: accidental or unintentional
[2023-10-04 14:58] VITALS: BP 112/60; PULSE 73; O2SAT 97; BMI 31.8
== END 2023-10-04 15:42 | disposition home or self-care (01) ==
LOC: HO.HKA 14:49
PROVIDERS: PCP Physician Assistant; Referring Provider Physician Assistant; Visit Provider Internal Medicine Nephrology
DX: E21.3 Hyperparathyroidism, unspecified (principal); E87.1 Hypo-osmolality and hyponatremia; I10 Essential (primary) hypertension; T63.451A Toxic effect of venom of hornets, accidental (unintentional), initial encounter
CPT/HCPCS: 99205

== ENCOUNTER → 2023-10-04 14:49 | Outpatient (BNVA) | payer MEDICARE, MEDICAID, SELFPAY | PROVIDERS: PCP Physician Assistant; Referring Provider Physician Assistant; Visit Provider Internal Medicine Nephrology | DX: I10 Essential (primary) hypertension (principal); E87.0 Hyperosmolality and hypernatremia; E21.3 Hyperparathyroidism, unspecified; T63.451A Toxic effect of venom of hornets, accidental (unintentional), initial encounter | CPT/HCPCS: 99202 ==

== ENCOUNTER 2023-10-19 13:05 | Outpatient (AMB) | payer MEDICARE, MEDICAID, SELFPAY ==
--- NOTE | 2023-10-19 13:32 | A.OFFPC_ITS ---
Vital Signs 10/19/23 13:33 Height 5 ft 3 in Weight 184 lb 4 oz BMI 32.6 BP 132/70 Blood Pressure Location Lt brachial Position Sitting Respiration 12 Pulse 72 Pulse Source Palpation Intake Visit Reasons: med recheck, f/u from cardiac cath Medical I D Sales Required: No Post menopausal: Yes Patient : No Allergies codeine Allergy (Intermediate, Verified 10/04/23 15:00) headache duloxetine [From Cymbalta] Allergy (Mild, Verified 10/04/23 15:00) Itching Medication List - Last Reconciled 10/19/23 by Ayesha Marroquin PA-C albuterol sulfate 90 mcg/actuation inhalation aspirin 81 mg PO DAILY atorvastatin 40 mg PO DAILY biotin mcg PO budesonide 180 mcg/actuation (Pulmicort Flexhaler) 2 inhalations inhalation BID buspirone 5 mg PO TID cholecalciferol (vitamin D3) 50 mcg PO DAILY diclofenac sodium 1% 4 grams topical QID PRN docusate sodium 100 mg PO BID isosorbide mononitrate ER 30 mg PO DAILY lorazepam 0.5 mg PO BEDTIME PRN 30 days mecobalamin (vitamin B12) mcg PO meloxicam 15 mg PO DAILY metoprolol tartrate 50 mg PO BID og-kdi-hnfhw-calcium carb-K1 400 mcg-500 mg calcium-20 mcg (Women's 50 Plus Multivitamin) tabs PO pantoprazole 40 mg PO DAILY prednisone 20 mg PO DAILY pyridoxine (vitamin B6) 100 mg PO DAILY sertraline 200 mg PO DAILY simethicone 80 mg PO Q6H PRN sucralfate 1 g PO BID vit C,E,Zn,Lr-yswwc3-fzf-zeax 250-2.5-0.5 mg caps PO Tobacco use date assessed: 07/06/23 Dental Screening Dental Screen Date: 06/08/23 HPI med recheck, f/u from cardiac cath HPI Details Patient is an 78-year-old female who presents today for a follow up. CV: States she had a cardiac cath on Monday and it was normal. She states no real blockages. She states that her stress test was a false positive but she still frustrated because she gets winded with exertion. Pulm: She is still getting ANDERSON and is frustrated with this but also not using her Pulmicort consistently. She sometimes gets improvement with albuterol. She states that the shortness on breath does not change with the weather and it just randomly happens where she feels like she can not catch her breath. It resolves when she takes a deep breath. She did have imaging done at [facility] and states that she had PFTs which showed mild COPD. Again, no report available today. Heme: had radha not on iron. Saw GI for a colonoscopy and endoscopy in 2019 (no report available) Nephro: following with Dr. Barrera and fluid restricted for the hyponatremia. Endo: following with endo for hyperparathyroidism Psych: doing better with the ativan. Yet, to make appointment with [facility]. Canceled/broke a few appointments. SHe does admit it would be helpful to see someone. Her daughter is very [place] and lectures her a lot. She states her son is mentally sick and constantly depressed. [facility] Medical History (Updated 10/19/23 @ 15:41 by Ayesha Marroquin PA-C) Insomnia Chronic fatigue IBS (irritable bowel syndrome) GERD (gastroesophageal reflux disease) Osteoporosis Fibromyalgia Depression, major, recurrent, moderate Generalized anxiety disorder CAD (coronary artery disease) Hyperlipidemia HTN (hypertension), benign Diverticulitis FHx: total knee replacement Surgical History S/P hip replacement H/O shoulder replacement Social History Housing: Other Housing Other:: Mobile home Patient Tobacco Use Status: Former Tobacco user Tobacco use type: Cigarette Years Smoked: 16 years total. Smoked socially. quit 25 years ago e-Cigarette/Vaping Use: Never Used Second Hand Smoke Exposure: Yes service: No Current occupational status: retired Cognitive needs: No Hearing needs: No Vision needs: No Questionnaire Thrive Questionnaire Date Thrive assessed: 06/08/23 MYATE-7 AMB Questionnaire MAYTE-7 Date MAYTE - 7 assessed: 06/08/23 Source: Developed by Drs. Johnathan Landeros, Yanelis Maldonado, Dutch Vogel and colleagues, with an educational rambo from [employer]. Physical exam (Primary Care) Vital Signs: Last Vital Signs Pulse 72 10/19/23 13:33 Resp 12 10/19/23 13:33 BP 132/70 10/19/23 13:33 BMI result Body Mass Index 32.6 Tobacco/Smoking Status: Tobacco use Status Tobacco use date assessed 07/06/23 10/19/23 13:35 Patient Tobacco Use Status Former Tobacco user 10/19/23 13:35 Tobacco use type Cigarette 10/19/23 13:35 e-Cigarette/Vaping Use Never Used 10/19/23 13:35 Thrive Assessment: Date of Thrive Assessment Date Thrive assessed 06/08/23 10/19/23 13:35 Results Reviewed Results Reviewed: Laboratory Tests 09/07/23 15:44 WBC 4.4 L RBC 3.11 L Hgb 9.8 L Hct 29.7 L Sodium 136 Potassium 4.2 Chloride 104 Carbon Dioxide 25 Creatinine 0.80 Estimated GFR > 60 Assessment and Plan Assessment & Plan (1) Anemia, unspecified: Code(s): D64.9 - Anemia, unspecified Qualifiers: Anemia type: unspecified type Qualified Code(s): D64.9 - Anemia, unspecified Plan: Labs ordered today. We will follow up pending test results and to discuss going back to Hematology and possibly starting iron. Discussed that this could also be contributing to the shortness a breath. (2) Hyponatremia: Code(s): E87.1 - Hypo-osmolality and hyponatremia Plan: We will recheck sodium. She states that she has not been as good with the fluid restriction as she should be. Still drinking wine at night but trying to just sip it slowly. (3) ANDERSON (dyspnea on exertion): Code(s): R06.09 - Other forms of dyspnea Plan: Advised to become compliant with her Pulmicort. Referral to pulmonology. Notes from [facility] requested. (4) COPD (chronic obstructive pulmonary disease): Code(s): J44.9 - Chronic obstructive pulmonary disease, unspecified Qualifiers: COPD type: unspecified COPD Qualified Code(s): J44.9 - Chronic obstructive pulmonary disease, unspecified Plan: As above. Orders: Orders Complete Blood Count Auto Diff Today D64.9 - Anemia, unspecified, E87.1 - Hypo- osmolality and hyponatremia, R06.09 - Other forms of dyspnea Comprehensive Met. Panel Today D64.9 - Anemia, unspecified, E87.1 - Hypo-osmo lality and hyponatremia, R06.09 - Other forms of dyspnea IRON PROFILE Today D64.9 - Anemia, unspecified, E87.1 - Hypo-osmolality and hyponatremia, R06.09 - Other forms of dyspnea TSH reflex Free T4 Today D64.9 - Anemia, unspecified, E87.1 - Hypo-osmolality and hyponatremia, R06.09 - Other forms of dyspnea Vitamin B12 and Folate Today D64.9 - Anemia, unspecified, E87.1 - Hypo- osmolality and hyponatremia, R06.09 - Other forms of dyspnea Ferritin Today D64.9 - Anemia, unspecified, E87.1 - Hypo-osmolality and hyponatremia, R06.09 - Other forms of dyspnea Referrals Pulmonology Referral J44.9 - Chronic obstructive pulmonary disease, u nspecified, R06.09 - Other forms of dyspnea Medications: Changed From albuterol sulfate 90 mcg/actuation inhalation To albuterol sulfate 90 mcg/actuation 2 puffs inhalation Q6H PRN 8.5 grams 0RF shortness of breath or wheezing 30 days Refilled lorazepam 0.5 mg PO BEDTIME PRN 30 tabs 0RF anxiety 30 days Coding Level of Care Code Est Pt Level 4 (38047) Complex EM visit Add On G2211 Diagnoses Anemia, unspecified type D64.9 Anemia type: unspecified type Hyponatremia E87.1 ANDERSON (dyspnea on exertion) R06.09 Chronic obstructive pulmonary disease, unspecified COPD type J44.9 COPD type: unspecified COPD
[2023-10-19 13:33] VITALS: BP 132/70; PULSE 72; RESP 12; BMI 32.6
== END 2023-10-19 14:04 | disposition home or self-care (01) ==
PROVIDERS: PCP Physician Assistant; Visit Provider Physician Assistant
DX: D64.9 Anemia, unspecified (principal); E87.1 Hypo-osmolality and hyponatremia; R06.09 Other forms of dyspnea; J44.9 Chronic obstructive pulmonary disease, unspecified
CPT/HCPCS: 99214; G2211

== ENCOUNTER 2023-10-19 13:55 | Outpatient (REF) | payer MEDICARE, MEDICAID, SELFPAY ==
[2023-10-19 17:33] LABS: MANUAL DIFF FLAG NO
[2023-10-19 17:48] LABS: Basophils Percent Auto 0.9 % (0-2); Eosinophils Absolute Auto 0.2 X10*3/uL (0.0-0.4); Eosinophils Percent Auto 5.1 % (0-4); Hematocrit 32.1 % (37.0-47.0); Hemoglobin 10.6 g/dl (12.0-16.0); Imm Gran Abs Auto 0.01 X10*3/uL (0.00-0.03); Imm Gran Pct Auto 0.2 % (0.0-0.4); Lymphocytes Absolute Auto 1.6 X10*3/uL (1.2-4.9); Lymphocytes Percent Auto 36.7 % (20-40); Mean Corpuscular Hemoglobin 31.7 pg (27.0-33.0); Mean Corpuscular Volume 96.1 fL (80.0-98.0); Mean Platelet Volume 10.2 fL (9.4-12.3); Monocytes Absolute Auto 0.5 X10*3/uL (0.1-1.2); Monocytes Percent Auto 10.4 % (2-11); Neutrophils Percent Auto 46.7 % (45-73); Platelet Count 209 X10*3/uL (160-400); Red Blood Count 3.34 X10*6/uL (4.20-5.50); Red Cell Distribution Width 12.8 % (11.0-16.0); White Blood Count 4.3 X10*3/uL (4.8-10.8)
[2023-10-19 17:58] LABS: Alanine Aminotransferase 13 U/L (0-31); Alkaline Phosphatase 88 U/L (39-117); Anion Gap 10 (12-20); Aspartate Amino Transferase 24 U/L (5-31); Bilirubin Total 0.3 mg/dL (0.0-1.0); Blood Urea Nitrogen 13 mg/dL (9-16); Carbon Dioxide 27 mmol/L (22-29); Chloride 104 mmol/L (96-108); Estimated Glomerular Filt Rate > 60; Glucose Random 96 mg/dL (60-115); Iron 65 mcg/dL (30-160); Percent Iron Saturation 25 % (15-50); Potassium 4.4 mmol/L (3.3-5.1); Sodium 137 mmol/L (135-145); Total Iron Binding Capacity 262 mcg/dL (228-428); Total Protein 7.5 g/dL (6.5-8.0); Unsaturated Iron Binding 197 ug/dL
[2023-10-19 18:13] LABS: Ferritin 51 ng/mL (10-250); TSH reflex Free T4 3.43 uIU/mL (0.32-4.0)
[2023-10-19 18:30] LABS: Folate > 20.0 ng/mL (> or = 4.0); Vitamin B12 1887 pg/mL (200-900)
== END 2023-10-19 13:56 | disposition home or self-care (01) ==
LOC: HO.WFDLDS 13:55
PROVIDERS: Referring Provider Internal Medicine Nephrology; Visit Provider Physician Assistant
DX: E87.1 Hypo-osmolality and hyponatremia (principal); D64.9 Anemia, unspecified; R06.09 Other forms of dyspnea
CPT/HCPCS: 36415; 80053; 82607; 82728; 82746; 83540; 84443; 85025

== ENCOUNTER 2023-11-01 | Outpatient (REF) | payer MEDICARE, MEDICAID, SELFPAY | END 2023-11-01 00:01 | disposition home or self-care (01) | LOC: CF | PROVIDERS: PCP Physician Assistant; Visit Provider Nurse Practitioner Family | DX: J44.9 Chronic obstructive pulmonary disease, unspecified (principal); R05.3 Chronic cough; Z87.891 Personal history of nicotine dependence | CPT/HCPCS: 99202 ==

== ENCOUNTER 2023-11-01 13:24 | Outpatient (AMB) | payer MEDICARE, MEDICAID, SELFPAY ==
[2023-11-01 13:27] VITALS: BP 124/82; PULSE 67; O2SAT 97; BMI 32.8
--- NOTE | 2023-11-01 13:27 | A.OFFVIS_ITS ---
Vital Signs 11/01/23 13:27 Height 5 ft 3 in Weight 185 lb BMI 32.8 BP 124/82 Blood Pressure Location Lt brachial Position Sitting Pulse 67 Pulse Source Pulse Oximeter Pulse Oximetry (%) 97 Oxygen Delivery Method Room Air Intake Visit Reasons: COPD Allergies codeine Allergy (Intermediate, Verified 11/01/23 13:31) headache duloxetine [From Cymbalta] Allergy (Mild, Verified 11/01/23 13:31) Itching HPI HPI COPD: Details: Rose is a pleasant 78 year female, former smoker with less than 10 pack year history, quit 20 years ago with underlying She was referred by PCP for pulmonary evaluation. She reports progressively worsening dyspnea and intermittent cough and wheezing over the last few years. She has been suboptimally controlled on pulmonicort and albuterol MDI. She denies prior h/o asthma. Prior PFT 08/2022 revealed mild obstructive defect with no response to bronchodilators, DLCO normal. Prior CXR unremarkable. She denies any pertinent family history. She denies any seasonal allergies. 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 She also notes significant second hand exposure to tobacco. She is currently under the care of cardiology and reports prior stress test, echo and right heart catheterization were reportedly normal. Records from [facility] cardiology are not available today. [facility] Medical History (Updated 11/02/23 @ 20:12 by Faiza Garay NP) Insomnia Chronic fatigue IBS (irritable bowel syndrome) GERD (gastroesophageal reflux disease) Osteoporosis Fibromyalgia Depression, major, recurrent, moderate Generalized anxiety disorder CAD (coronary artery disease) Hyperlipidemia HTN (hypertension), benign Diverticulitis FHx: total knee replacement Surgical History S/P hip replacement H/O shoulder replacement Social History Housing: Other Housing Other:: Mobile home Patient Tobacco Use Status: Former Tobacco user Tobacco use type: Cigarette Years Smoked: 16 years total. Smoked socially. quit 25 years ago e-Cigarette/Vaping Use: Never Used Second Hand Smoke Exposure: Yes service: No Current occupational status: retired Cognitive needs: No Hearing needs: No Vision needs: No Review of Systems Const Denies chills, Denies excessive sweating, Denies fever(s), Denies headache(s) and Denies night sweats Eyes Denies dry eyes, Denies irritation and Denies itchy eyes ENT Reports Normal hearing present, Denies headache(s), Denies nasal congestion, Denies nasal discharge, Denies post nasal drip and Denies sore throat Card Denies chest pain, Denies chest pain at rest, Denies chest pain with activity, Denies claudication, Denies leg edema, Denies orthopnea and Denies paroxysmal nocturnal dyspnea Resp Denies chest congestion, Denies cough, Denies excessive phlegm production, Denies pain on inspiration, Denies pain with cough and Denies stridor Musc Denies myalgias Neuro Reports Normal hearing present and Denies headache(s) Endo Denies excessive sweating Rodolfo/Lymph Denies lymphadenopathy Aller/Immun Denies itchy eyes and Denies seasonal rhinorrhea Physical Exam Vital Signs: Last Vital Signs Pulse 67 11/01/23 13:27 BP 124/82 11/01/23 13:27 Pulse Ox 97 11/01/23 13:27 Oxygen Delivery Method Room Air 11/01/23 13:27 BMI result Body Mass Index 32.8 Const General: cooperative, healthy appearing, comfortable, no acute distress, well developed and alert Nutritional Appearance: obese Orientation/consciousness: patient oriented x3 Limitations: no limitations HEENT Head: Yes normal to inspection, Yes normocephalic and Yes atraumatic Ears: hearing grossly normal bilaterally and external ears normal Eyes General: appearance normal, both eyes and all related structures Eyelids: Yes eyelids normal Sclerae: sclerae normal EOM: EOMs intact bilaterally Neck Neck: Yes normal visual inspection and Yes no lymphadenopathy Lymphatic: no lymphadenopathy noted Chest Chest palpation & inspection: normal inspection of the chest Resp Effort & Inspection: normal respiratory effort, able to speak in complete sentences, no audible wheezes, no cough, no stridor, not tachypneic, no tripod positioning and no use of accessory muscles Auscultation: clear to auscultation bilaterally Cardio Jugular venous distension: no JVD Rate: regular rate Rhythm: regular rhythm Skin Other: warm, dry General skin exam: no rashes or lesions noted Neuro General: patient oriented x3 Cranial nerves: Yes Normal hearing present Cognition (Neuro): normal cognition Gait exam (Neuro): Normal gait present Extrem General: Yes normal to inspection, Yes capillary refill normal, Yes no clubbing, cyanosis or edema and Yes no pedal edema Psych Appearance: grossly normal and well kempt Speech and movement: Normal speech and movement present and Clear speech present Affect: normal affect Attitude: cooperative Thought process: Normal thought process present Thought content: Normal thought content present Insight: Good insight present (Psych) Judgement: Good judgement present (Psych) Assessment & Plan Assessment & Plan (1) COPD (chronic obstructive pulmonary disease): Code(s): J44.9 - Chronic obstructive pulmonary disease, unspecified Category: Medical Qualifiers: COPD type: unspecified COPD Qualified Code(s): J44.9 - Chronic obstructive pulmonary disease, unspecified (2) Personal history of tobacco use: Code(s): Z87.891 - Personal history of nicotine dependence Category: Social Hx (3) Chronic cough: Code(s): R05.3 - Chronic cough Category: Medical Plan Rose's symptoms are likely related to underlying pulmonary etiologies. Prior PFT revealed mild obstructive defect. She reports suboptimal effect with pulmicort, will trial Breo. Discussed importance of good oral hygiene to prevent thrush. Will also send for chest CT to evaluate for any underlying parenchymal condition contributing to symptoms. Prior chest x-ray negative. Will also attempt to obtain prior cardiology records. All questions were answered and patient is in agreement of plan. Will follow-up to review results and response to Breo, or sooner if needed. Orders: Orders CT chest wo IV con Today R05.9 - Cough, unspecified Medications: New fluticasone furoate-vilanterol 200-25 mcg/dose (Breo Ellipta) 1 inh inhalation DAILY 60 ea 3RF Coding Level of Care Code New Pt Level 4 (06262) Diagnoses Chronic obstructive pulmonary disease, unspecified COPD type J44.9 COPD type: unspecified COPD Personal history of tobacco use Z87.891 Chronic cough R05.3
== END 2023-11-01 14:35 | disposition home or self-care (01) ==
PROVIDERS: PCP Physician Assistant; Referring Provider Physician Assistant; Visit Provider Nurse Practitioner Family
DX: J44.9 Chronic obstructive pulmonary disease, unspecified (principal); Z87.891 Personal history of nicotine dependence; R05.3 Chronic cough
CPT/HCPCS: 99204

== ENCOUNTER 2023-11-22 14:35 | Outpatient (AMB) | payer MEDICARE, MEDICAID, SELFPAY ==
--- NOTE | 2023-11-22 14:37 | A.OFFPC_ITS ---
Vital Signs 11/22/23 14:40 11/22/23 14:47 Height 5 ft 3 in Weight 178 lb BMI 31.5 BP 148/86 H 140/78 H Blood Pressure Location Lt brachial Lt brachial Position Sitting Sitting Pulse 74 Pulse Source Pulse Oximeter Pulse Oximetry (%) 99 Oxygen Delivery Method Room Air Intake Visit Reasons: needs 30 min, [facility] Intake Note: Follow up. Need refill on Lorazepam. Supervisor Electronic Testing Required: No Allergies codeine Allergy (Intermediate, Verified 11/22/23 14:39) headache duloxetine [From Cymbalta] Allergy (Mild, Verified 11/22/23 14:39) Itching Medication List - Last Reconciled 11/22/23 by Ayesha Marroquin PA-C albuterol sulfate 90 mcg/actuation 2 puffs inhalation Q6H PRN 30 days aspirin 81 mg PO DAILY atorvastatin 40 mg PO DAILY biotin mcg PO Breo Ellipta 200-25 mcg/dose (fluticasone furoate-vilanterol) 1 inh inhalation DAILY NS buspirone 5 mg PO TID cholecalciferol (vitamin D3) 50 mcg PO DAILY diclofenac sodium 1% 4 grams topical QID PRN docusate sodium 100 mg PO BID isosorbide mononitrate ER 30 mg PO DAILY lorazepam 0.5 mg PO BEDTIME PRN 30 days mecobalamin (vitamin B12) mcg PO meloxicam 15 mg PO DAILY metoprolol tartrate 50 mg PO BID tx-dmt-bdoah-calcium carb-K1 400 mcg-500 mg calcium-20 mcg (Women's 50 Plus Multivitamin) tabs PO pantoprazole 40 mg PO DAILY pyridoxine (vitamin B6) 100 mg PO DAILY sertraline 200 mg PO DAILY simethicone 80 mg PO Q6H PRN sucralfate 1 g PO BID vit C,E,Zn,Lx-fbkxu5-shc-zeax 250-2.5-0.5 mg caps PO Tobacco use date assessed: 07/06/23 Dental Screening Dental Screen Date: 06/08/23 HPI needs 30 min, [facility] HPI Details Patient is an 78-year-old female who presents today for a follow up. CV: Blood pressure today in the office is 140/78. She is currently on me toprolol 50 mg twice a day, isosorbide 30 mg daily. Cholesterol is controlled with atorvastatin 40 mg. She had a neg stress and cath. Has cardiology follow up booked next month with [facility]. Pulm: Recently saw pulmonology and was started on Breo. Has albuterol to use as needed. Breathing is improved with decreased humidity. She states she has not yet picked up the Breo Heme: had radha not on iron. Follows with Dr. Contreras at [facility] [place] which she states she forgot to mention. She sees him q 6 months. Saw GI for a colonoscopy and endoscopy in 2019 (no report available) Nephro: following with Dr. Barrera and fluid restricted for the hyponatremia. Endo: following with endo for hyperparathyroidism Musculoskeletal: following with [facility] Psych: doing better with the ativan. She is on zoloft and buspar. Yet, to make appointment with [facility]. Canceled/broke a few appointments. She does admit it would be helpful to see someone. Her daughter is very [place] and lectures her a lot. She states her son is mentally sick and constantly depressed. She states she was crying today because her son's cat had a seizure. She states she is also stressed her grandson is in college and goes to parties and she is worried about him experimenting with drugs. She denies any SI/HI but does report a lot of worrying about things out of her control [facility] Medical History (Updated 11/02/23 @ 20:12 by Faiza Garay NP) Insomnia Chronic fatigue IBS (irritable bowel syndrome) GERD (gastroesophageal reflux disease) Osteoporosis Fibromyalgia Depression, major, recurrent, moderate Generalized anxiety disorder CAD (coronary artery disease) Hyperlipidemia HTN (hypertension), benign Diverticulitis FHx: total knee replacement Surgical History S/P hip replacement H/O shoulder replacement Social History Housing: Other Housing Other:: Mobile home Patient Tobacco Use Status: Former Tobacco user Tobacco use type: Cigarette Years Smoked: 16 years total. Smoked socially. quit 25 years ago e-Cigarette/Vaping Use: Never Used Second Hand Smoke Exposure: Yes service: No Current occupational status: retired Cognitive needs: No Hearing needs: No Vision needs: No Questionnaire Thrive Questionnaire Date Thrive assessed: 06/08/23 I am a: Patient What is your living situation today?: I have a steady place to live Within the past 12 months, did the food you bought not last and you didn't have the money to get more?: I choose not to answer this question Within the past 12 months, did you worry whether your food would run out before you got money to buy more?: I choose not to answer this question Do you have trouble paying for medicines?: Yes Do you have trouble getting transportation to medical appointments?: I choose not to answer this question Do you have trouble paying your heating and electricity bill?: Yes Do you have trouble taking care of your child, family member or friend?: No Do you have trouble with day-to-day activities such as bathing, preparing meals, shopping, managing finances, etc.?: No Are you currently unemployed and looking for a job?: I choose not to answer this question Please select the resources that you would like help with: Utilities THRIVE Score: 1 AUDIT C Alcohol Use Questionnaire (AUDIT-C) 1. How often do you have a drink containing alcohol?: 2-3 times a week 3. How often do you have six or more drinks on one occasion?: Never Total Score: 3 MAYTE-7 AMB Questionnaire MAYTE-7 Date MAYTE - 7 assessed: 06/08/23 Feeling nervous, anxious, or on edge: 2 = More than half the days Not being able to stop or control worryin = More than half the days Worrying too much about different things: 1 = Several days Trouble relaxin = More than half the days Becoming easily annoyed or irritable: 1 = Several days Feeling afraid as if something awful might happen: 0 = Not at all Source: Developed by Drs. Johnathan Landeros, Yanelis Maldonado, Dutch Vogel and colleagues, with an educational rambo from [employer]. Physical exam (Primary Care) Vital Signs: Last Vital Signs Pulse 74 11/22/23 14:40 BP 140/78 H 11/22/23 14:47 Pulse Ox 99 11/22/23 14:40 Oxygen Delivery Method Room Air 11/22/23 14:40 BMI result Body Mass Index 31.5 Tobacco/Smoking Status: Tobacco use Status Tobacco use date assessed 07/06/23 11/22/23 14:38 Patient Tobacco Use Status Former Tobacco user 11/22/23 14:38 Tobacco use type Cigarette 11/22/23 14:38 e-Cigarette/Vaping Use Never Used 11/22/23 14:38 Thrive Assessment: Date of Thrive Assessment Date Thrive assessed 06/08/23 11/22/23 14:38 Const Orientation/consciousness: patient oriented x3 HENMT Ears: hearing grossly normal bilaterally Neck Thyroid: Thyroid normal Lymphatic: no lymphadenopathy noted Resp Auscultation: clear to auscultation bilaterally Cardio Rate: regular rate Rhythm: regular rhythm Heart sounds: S1 normal heart sound present and S2 normal heart sound present GI Inspection: Yes normal to inspection Palpation (GI): Soft to palpation and Other GI palpation findings present (nontender, no cva tenderness) Auscultation: normoactive bowel sounds Rectal Exam - Female: deferred Skin General skin exam: no rashes or lesions noted Neuro General: patient oriented x3, gait normal and no focal motor deficits Assessment and Plan Assessment & Plan (1) HTN (hypertension), benign: Code(s): I10 - Essential (primary) hypertension Plan: wnl. continue current treatment plan (2) Generalized anxiety disorder: Code(s): F41.1 - Generalized anxiety disorder Plan[place] [facility] [place]. continue current plan with zoloft and buspar. (3) Depression, major, recurrent, moderate: Code(s): F33.1 - Major depressive disorder, recurrent, moderate Plan: as above (4) Anemia, unspecified: Code(s): D64.9 - Anemia, unspecified Qualifiers: Anemia type: unspecified type Qualified Code(s): D64.9 - Anemia, unspecified Plan: following with Dr. Contreras (5) COPD (chronic obstructive pulmonary disease): Code(s): J44.9 - Chronic obstructive pulmonary disease, unspecified Qualifiers: COPD type: unspecified COPD Qualified Code(s): J44.9 - Chronic obstructive pulmonary disease, unspecified Plan: improved with new treatment plan and decreased humidity. CT booked this week. Orders: Orders Complete Blood Count Auto Diff 3 Months D64.9 - Anemia, unspecified, F33.1 - Major depressive disorder, recurrent, moderate, F41.1 - Generalized anxiety disorder, I10 - Essential (primary) hypertension, J44.9 - Chronic obstructive pulmonary disease, unspecified TSH reflex Free T4 3 Months D64.9 - Anemia, unspecified, F33.1 - Major depressive disorder, recurrent, moderate, F41.1 - Generalized anxiety disorder, I10 - Essential (primary) hypertension, J44.9 - Chronic obstructive pulmonary disease, unspecified Comprehensive [place]. Panel Fast 3 Months D64.9 - Anemia, unspecified, F33.1 - Major depressive disorder, recurrent, moderate, F41.1 - Generalized anxiety disorder, I10 - Essential (primary) hypertension, J44.9 - Chronic obstructive pulmonary disease, unspecified Coding Level of Care Code Est Pt Level 4 (07162) Complex EM visit Add On G2211 Diagnoses HTN (hypertension), benign I10 Generalized anxiety disorder F41.1 Depression, major, recurrent, moderate F33.1 Anemia, unspecified type D64.9 Anemia type: unspecified type Chronic obstructive pulmonary disease, unspecified COPD type J44.9 COPD type: unspecified COPD
[2023-11-22 14:40] VITALS: BP 148/86; PULSE 74; O2SAT 99; BMI 31.5
[2023-11-22 14:47] VITALS: BP 140/78
== END 2023-11-22 15:23 | disposition home or self-care (01) ==
PROVIDERS: PCP Physician Assistant; Visit Provider Physician Assistant
DX: I10 Essential (primary) hypertension (principal); F33.1 Major depressive disorder, recurrent, moderate; J44.9 Chronic obstructive pulmonary disease, unspecified; F41.1 Generalized anxiety disorder; D64.9 Anemia, unspecified

== ENCOUNTER → 2023-11-22 14:35 | Outpatient (BNVA) | payer MEDICARE, MEDICAID, SELFPAY | PROVIDERS: PCP Physician Assistant; Visit Provider Physician Assistant | DX: I10 Essential (primary) hypertension (principal); F41.1 Generalized anxiety disorder; F33.1 Major depressive disorder, recurrent, moderate; D64.9 Anemia, unspecified; J44.9 Chronic obstructive pulmonary disease, unspecified | CPT/HCPCS: 99212 ==

== ENCOUNTER 2023-11-27 13:29 | Outpatient (AMB) | payer MEDICARE, MEDICAID, SELFPAY ==
[2023-11-27 13:29] VITALS: BMI 32.1
--- NOTE | 2023-11-27 13:29 | HO.NEPHOV ---
Vital Signs 11/27/23 13:29 Height 5 ft 3 in Weight 181 lb BMI 32.1 Intake Visit Reasons: Hypertension- Conf [employer] Supervisor Required: No Accompanied by: Self / Same As Patient Allergies codeine Allergy (Intermediate, Verified 11/27/23 13:29) headache duloxetine [From Cymbalta] Allergy (Mild, Verified 11/27/23 13:29) Itching HPI Comments Details: I had the pleasure seeing Rose in follow up for history of hyponatremia, hypertension and hyperparathyroidism, by telehealth. She has H/O profound low-sodium and needing hospitalization following initiation of Chlorthalidone. She did not have any nausea, vomiting or diarrhea that time. She was on a low solute diet. She did not need hypertonic saline or tolvaptan during the hospitalization. She was treated with oral urea and fluid restriction with improvement in serum sodium. She has had no edema, history of renal failure, liver failure. She denies polydipsia. She has history of depression and had been on antidepressant medications. She is due to have a cardiac catheterization soon as part of cardiac W/U for SOB. Her blood pressure had been labile but is better controlled on current medication regimen. She has no history of hyperkalemia or Leonardo's disease. She denies taking excessive nonsteroidal anti-inflammatories. [facility] Medical History (Updated 11/02/23 @ 20:12 by Faiza Garay NP) Insomnia Chronic fatigue IBS (irritable bowel syndrome) GERD (gastroesophageal reflux disease) Osteoporosis Fibromyalgia Depression, major, recurrent, moderate Generalized anxiety disorder CAD (coronary artery disease) Hyperlipidemia HTN (hypertension), benign Diverticulitis FHx: total knee replacement Surgical History S/P hip replacement H/O shoulder replacement Social History Housing: Other Housing Other:: Mobile home Patient Tobacco Use Status: Former Tobacco user Tobacco use type: Cigarette Years Smoked: 16 years total. Smoked socially. quit 25 years ago e-Cigarette/Vaping Use: Never Used Second Hand Smoke Exposure: Yes service: No Current occupational status: retired Cognitive needs: No Hearing needs: No Vision needs: No Review of Systems Const All systems reviewed & are unremarkable except as noted in HPI and below Physical Exam Vital Signs: BMI result Body Mass Index 32.1 Telehealth Telehealth Telehealth Platform: Telephone Location of provider rendering services: practice address Location of patient: address on file Patient Identification confirmed using: Name, : Yes Telehealth method: voice only Patient verbally consented to treatment: Yes Patient verbally consented to billing insurance company: Yes Patient informed of any privacy concerns related to visit: No Minutes spent on Phone/Video with Pt.: 15 Results Reviewed Nephrology Results: Hgb 10.6 g/dl (12.0-16.0) L 10/19/23 WBC 4.3 X10*3/uL (4.8-10.8) L 10/19/23 Plt Count 209 X10*3/uL (160-400) 10/19/23 Sodium 137 mmol/L (135-145) 10/19/23 Potassium 4.4 mmol/L (3.3-5.1) 10/19/23 Chloride 104 mmol/L (96-108) 10/19/23 Carbon Dioxide 27 mmol/L (22-29) 10/19/23 BUN 13 mg/dL (9-16) 10/19/23 Creatinine 0.78 mg/dL (0.5-1.4) 10/19/23 Calcium 10.0 mg/dL (8.4-10.2) 10/19/23 Assessment & Plan Assessment & Plan (1) Hyponatremia: Code(s): E87.1 - Hypo-osmolality and hyponatremia Category: Medical (2) HTN (hypertension), benign: Code(s): I10 - Essential (primary) hypertension Category: Medical Plan Rose had hyponatremia due to multifactorial etiology. She likely had excess ADH at baseline due to her history of depression as well as some of her medications. It was compounded by addition of chlorthalidone as well as low solute diet. She recently need hospitalization with a profound hyponatremia. At that time her chlorthalidone was discontinued and she was treated with oral urea as well as fluid restriction with improvement in her serum sodium. She does not have any mentation changes or weakness now. She is not hyperkalemic. She is not known to have uncontrolled thyroid disorders or Kearny's disease. Her serum sodium has improved since and is stable. She should maintain on fluid restriction. She has longstanding hypertension which is controlled on current medication regimen. She will benefit from sestamibi scan to rule out parathyroid adenoma given hypercalcemia and high PTH, which may be contributing to her hypertension. I did not make any other medication changes at this visit but rather discussed all these issues in detail and arranged a follow-up for continued care. Orders: Orders Blood Urea Nitrogen Today E87.1 - Hypo-osmolality and hyponatremia, I10 - Essential (primary) hypertension Creatinine Today E87.1 - Hypo-osmolality and hyponatremia, I10 - Essential (primary) hypertension Parathyroid Hormone Intact Today E87.1 - Hypo-osmolality and hyponatremia, I10 - Essential (primary) hypertension Vitamin D 25-OH Total Today E87.1 - Hypo-osmolality and hyponatremia, I10 - Essential (primary) hypertension Calcium Today E87.1 - Hypo-osmolality and hyponatremia, I10 - Essential (primary) hypertension Electrolytes Today E87.1 - Hypo-osmolality and hyponatremia, I10 - Essential (primary) hypertension Coding Level of Care Code Tele Est Pt Level 4 (62882) Diagnoses Hyponatremia E87.1 HTN (hypertension), benign I10
== END 2023-11-27 14:36 | disposition home or self-care (01) ==
PROVIDERS: PCP Physician Assistant; Visit Provider Internal Medicine Nephrology
DX: E87.1 Hypo-osmolality and hyponatremia (principal); I10 Essential (primary) hypertension
CPT/HCPCS: 99442

== ENCOUNTER → 2023-11-27 13:29 | Outpatient (BNVA) | payer MEDICARE, MEDICAID, SELFPAY | PROVIDERS: PCP Physician Assistant; Visit Provider Internal Medicine Nephrology ==

== ENCOUNTER 2024-01-19 14:06 | Outpatient (AMB) | payer MEDICARE, MEDICAID, SELFPAY ==
--- NOTE | 2024-01-19 14:07 | A.OFFVIS_ITS ---
Vital Signs 01/19/24 14:08 Height 5 ft 3 in Weight 186 lb 6 oz BMI 33.0 BP 142/68 H Blood Pressure Location Lt brachial Position Sitting Pulse 64 Pulse Source Pulse Oximeter Pulse Oximetry (%) 100 Oxygen Delivery Method Room Air Intake Visit Reasons: COPD Allergies codeine Allergy (Intermediate, Verified 01/19/24 14:11) headache duloxetine [From Cymbalta] Allergy (Mild, Verified 01/19/24 14:11) Itching HPI HPI COPD: Details: Rose is a pleasant 78 year female, former smoker with less than 10 pack year history, quit 20 years ago with underlying COPD, HTN, fibromyalgia and osteoporosis. She reports progressively worsening dyspnea and intermittent cough and wheezing over the last few years. She was suboptimally controlled on pulmonicort and albuterol MDI, switched to Breo however has not been using consistently. She is under the care of [facility] cardiology, will obtain records. She also notes that she is under the care of woven label designer for [facility]. [facility] Medical History (Updated 01/22/24 @ 16:52 by Faiza Garay NP) Insomnia Chronic fatigue IBS (irritable bowel syndrome) GERD (gastroesophageal reflux disease) Osteoporosis Fibromyalgia Depression, major, recurrent, moderate Generalized anxiety disorder CAD (coronary artery disease) Hyperlipidemia HTN (hypertension), benign Diverticulitis FHx: total knee replacement Surgical History S/P hip replacement H/O shoulder replacement Social History Housing: Other Housing Other:: Mobile home Patient Tobacco Use Status: Former Tobacco user Tobacco use type: Cigarette Years Smoked: 16 years total. Smoked socially. quit 25 years ago e-Cigarette/Vaping Use: Never Used Second Hand Smoke Exposure: Yes service: No Current occupational status: retired Cognitive needs: No Hearing needs: No Vision needs: No Review of Systems Const Denies chills, Denies excessive sweating, Denies fever(s), Denies headache(s) and Denies night sweats Eyes Denies dry eyes, Denies irritation and Denies itchy eyes ENT Reports Normal hearing present, Denies headache(s), Denies nasal congestion, Denies nasal discharge, Denies post nasal drip and Denies sore throat Card Denies chest pain, Denies chest pain at rest, Denies chest pain with activity, Denies claudication, Denies leg edema, Denies orthopnea and Denies paroxysmal nocturnal dyspnea Resp Denies chest congestion, Denies excessive phlegm production, Denies pain on inspiration, Denies pain with cough and Denies stridor Musc Denies myalgias Neuro Reports Normal hearing present and Denies headache(s) Endo Denies excessive sweating Rodolfo/Lymph Denies lymphadenopathy Aller/Immun Denies itchy eyes and Denies seasonal rhinorrhea Physical Exam Vital Signs: Last Vital Signs Pulse 64 01/19/24 14:08 BP 142/68 H 01/19/24 14:08 Pulse Ox 100 01/19/24 14:08 Oxygen Delivery Method Room Air 01/19/24 14:08 BMI result Body Mass Index 33.0 Const General: cooperative, healthy appearing, comfortable, no acute distress, well developed and alert Nutritional Appearance: obese Orientation/consciousness: patient oriented x3 Limitations: no limitations HEENT Head: Yes normal to inspection, Yes normocephalic and Yes atraumatic Ears: hearing grossly normal bilaterally and external ears normal Eyes General: appearance normal, both eyes and all related structures Eyelids: Yes eyelids normal Sclerae: sclerae normal EOM: EOMs intact bilaterally Neck Neck: Yes normal visual inspection and Yes no lymphadenopathy Lymphatic: no lymphadenopathy noted Chest Chest palpation & inspection: normal inspection of the chest Resp Effort & Inspection: normal respiratory effort, able to speak in complete sentences, no audible wheezes, no cough, no stridor, not tachypneic, no tripod positioning and no use of accessory muscles Auscultation: clear to auscultation bilaterally Cardio Jugular venous distension: no JVD Rate: regular rate Rhythm: regular rhythm Skin Other: warm, dry General skin exam: no rashes or lesions noted Neuro General: patient oriented x3 Cranial nerves: Yes Normal hearing present Cognition (Neuro): normal cognition Gait exam (Neuro): Normal gait present Extrem General: Yes normal to inspection, Yes capillary refill normal, Yes no clubbing, cyanosis or edema and Yes no pedal edema Psych Appearance: grossly normal and well kempt Speech and movement: Normal speech and movement present and Clear speech present Affect: normal affect Attitude: cooperative Thought process: Normal thought process present Thought content: Normal thought content present Insight: Good insight present (Psych) Judgement: Good judgement present (Psych) Assessment & Plan Assessment & Plan (1) COPD (chronic obstructive pulmonary disease): Code(s): J44.9 - Chronic obstructive pulmonary disease, unspecified Category: Medical Qualifiers: COPD type: unspecified COPD Qualified Code(s): J44.9 - Chronic obstructive pulmonary disease, unspecified (2) Personal history of tobacco use: Code(s): Z87.891 - Personal history of nicotine dependence Category: Social Hx (3) Chronic cough: Code(s): R05.3 - Chronic cough Category: Medical (4) Pulmonary nodule: Code(s): R91.1 - Solitary pulmonary nodule Category: Medical Plan Encouraged Rose to use Breo consistently to better assess effectiveness. Will also attempt to obtain prior cardiology records as recent chest CT possibly suggestive of pulmonary hypertension and echo from 03/2023 [facility] 36. There was also note of mild to moderate cardiomegaly and 2 mm pulmonary nodule of RML. Will repeat chest CT in one year to assess stability of nodule. All questions were answered and patient is in agreement of plan. Will follow-up to review response to Breo, or sooner if needed. Orders: Orders CT chest wo IV con 11 Months R91.1 - Solitary pulmonary nodule Coding Level of Care Code Est Pt Level 4 (25778) Diagnoses Chronic obstructive pulmonary disease, unspecified COPD type J44.9 COPD type: unspecified COPD Personal history of tobacco use Z87.891 Chronic cough R05.3 Pulmonary nodule R91.1
[2024-01-19 14:08] VITALS: BP 142/68; PULSE 64; O2SAT 100; BMI 33.0
== END 2024-01-19 14:56 | disposition home or self-care (01) ==
PROVIDERS: PCP Physician Assistant; Visit Provider Nurse Practitioner Family
DX: J44.9 Chronic obstructive pulmonary disease, unspecified (principal); Z87.891 Personal history of nicotine dependence; R05.3 Chronic cough; R91.1 Solitary pulmonary nodule
CPT/HCPCS: 99214

== ENCOUNTER → 2024-01-19 14:06 | Outpatient (BNVA) | payer MEDICARE, MEDICAID, SELFPAY | PROVIDERS: PCP Physician Assistant; Visit Provider Nurse Practitioner Family | DX: J44.9 Chronic obstructive pulmonary disease, unspecified (principal); R05.3 Chronic cough; R91.1 Solitary pulmonary nodule; Z87.891 Personal history of nicotine dependence | CPT/HCPCS: 99212 ==

== ENCOUNTER 2024-02-08 14:38 | Outpatient (AMB) | payer MEDICARE, MEDICAID, SELFPAY ==
--- NOTE | 2024-02-08 14:43 | MHC.PC.OV ---
Vital Signs 02/08/24 14:54 Height 5 ft 3 in Weight 188 lb 8 oz BMI 33.4 BP 132/82 Blood Pressure Location Rt brachial Position Sitting Pulse 71 Pulse Source Pulse Oximeter Pulse Oximetry (%) 98 Oxygen Delivery Method Room Air Intake Visit Reasons: 3 month follow up, needs 30 min Intake Note: Three month follow up Senior Stock Plan Administrator Required: No Allergies codeine Allergy (Intermediate, Verified 01/19/24 14:11) headache duloxetine [From Cymbalta] Allergy (Mild, Verified 01/19/24 14:11) Itching Medication List - Last Reconciled 02/08/24 by Ayesha Marroquin PA-C albuterol sulfate 90 mcg/actuation 2 puffs inhalation Q6H PRN 30 days aspirin 81 mg PO DAILY atorvastatin 40 mg PO DAILY biotin mcg PO DAILY Breo Ellipta 200-25 mcg/dose (fluticasone furoate-vilanterol) 1 inh inhalation DAILY NS buspirone 5 mg PO TID cholecalciferol (vitamin D3) 50 mcg PO DAILY diclofenac sodium 1% 4 grams topical QID PRN docusate sodium 100 mg PO BID isosorbide mononitrate ER 30 mg PO DAILY lorazepam 0.5 mg PO BEDTIME PRN 30 days mecobalamin (vitamin B12) mcg PO DAILY meloxicam 15 mg PO DAILY metoprolol tartrate 12.5 mg PO BID qk-fze-vdnrh-calcium carb-K1 400 mcg-500 mg calcium-20 mcg (Women's 50 Plus Multivitamin) tabs PO pantoprazole 40 mg PO DAILY pyridoxine (vitamin B6) 100 mg PO DAILY sertraline 150 mg PO DAILY simethicone 80 mg PO Q6H PRN sucralfate 1 g PO BID vit C,E,Zn,Ob-urjbr9-wqz-zeax 250-2.5-0.5 mg caps PO Tobacco use date assessed: 07/06/23 Dental Screening Dental Screen Date: 06/08/23 HPI 3 month follow up, needs 30 min HPI Details Patient is an 78-year-old female who presents today for a follow up. CV: Blood pressure today in the office is 132/78. She is currently on metoprolol 12.5 mg twice a day, isosorbide 30 mg daily. Cholesterol is controlled with atorvastatin 40 mg. She had a neg stress and cath. Has cardiology follow up booked next month with [facility]. Pulm: Recently saw pulmonology and was started on Breo. Has albuterol to use as needed. Breathing is improved with decreased humidity. She states she has not yet picked up the Breo Heme: had radha not on iron. Follows with Dr. Contreras at [facility] which she states she forgot to mention. She sees him q 6 months for this and [facility]. Saw GI for a colonoscopy and endoscopy in 2019 (no report available) Nephro: following with Dr. Barrera and fluid restricted for the hyponatremia. Endo: following with endo for hyperparathyroidism Musculoskeletal: following with [facility] Psych: doing better with the ativan. She is on zoloft and buspar. Yet, to make appointment with [facility]. Canceled/broke a few appointments. She does admit it would be helpful to see someone. Her daughter is very [place] and lectures her a lot. She states her son is mentally sick and constantly depressed. She states she was crying today because her son is homeless. She states she is also stressed her grandson who is currently living in [facility]. She denies any SI/HI. Uro: complains of urinary frequency and urinary incontinence. No dysuria, fever, chills, abdominal pain. No flank pain. This has been going on for many months. Would like to see someone for this. She says that she just started doing Kegel exercises about 3 days ago has not yet noted improvement. [facility] Medical History (Updated 02/08/24 @ 15:17 by Ayesha Marroquin PA-C) Insomnia Chronic fatigue IBS (irritable bowel syndrome) GERD (gastroesophageal reflux disease) Osteoporosis Fibromyalgia Depression, major, recurrent, moderate Generalized anxiety disorder CAD (coronary artery disease) Hyperlipidemia HTN (hypertension), benign Diverticulitis FHx: total knee replacement Surgical History S/P hip replacement H/O shoulder replacement Social History (Updated 02/08/24 @ 14:58 by Lorenza Doran CMA) Housing: Other Housing Other:: Mobile home Alcohol intake: current Patient Tobacco Use Status: Former Tobacco user Tobacco use type: Cigarette Years Smoked: 16 years total. Smoked socially. quit 25 years ago e-Cigarette/Vaping Use: Never Used Second Hand Smoke Exposure: Yes service: No Current occupational status: retired Cognitive needs: No Hearing needs: No Vision needs: No Questionnaire Thrive Questionnaire Date Thrive assessed: 11/15/23 I am a: Patient What is your living situation today?: I have a steady place to live Within the past 12 months, did the food you bought not last and you didn't have the money to get more?: I choose not to answer this question Within the past 12 months, did you worry whether your food would run out before you got money to buy more?: I choose not to answer this question Do you have trouble paying for medicines?: Yes Do you have trouble getting transportation to medical appointments?: I choose not to answer this question Do you have trouble paying your heating and electricity bill?: Yes Do you have trouble taking care of your child, family member or friend?: No Do you have trouble with day-to-day activities such as bathing, preparing meals, shopping, managing finances, etc.?: No Are you currently unemployed and looking for a job?: I choose not to answer this question Please select the resources that you would like help with: Utilities THRIVE Score: 1 MAYTE-7 AMB Questionnaire MAYTE-7 Date MAYTE - 7 assessed: 06/08/23 Source: Developed by Drs. Johnathan Landeros, Yanelis Maldonado, Dutch Vogel and colleagues, with an educational rambo from [employer]. Physical exam (Primary Care) Vital Signs: Last Vital Signs Pulse 71 02/08/24 14:54 BP 132/82 02/08/24 14:54 Pulse Ox 98 02/08/24 14:54 Oxygen Delivery Method Room Air 02/08/24 14:54 BMI result Body Mass Index 33.4 Tobacco/Smoking Status: Tobacco use Status Tobacco use date assessed 07/06/23 02/08/24 14:45 Patient Tobacco Use Status Former Tobacco user 02/08/24 14:58 Tobacco use type Cigarette 02/08/24 14:58 e-Cigarette/Vaping Use Never Used 02/08/24 14:58 Thrive Assessment: Date of Thrive Assessment Date Thrive assessed 11/15/23 02/08/24 14:45 Const Orientation/consciousness: patient oriented x3 HENMT Ears: hearing grossly normal bilaterally Neck Thyroid: Thyroid normal Lymphatic: no lymphadenopathy noted Resp Auscultation: clear to auscultation bilaterally Cardio Rate: regular rate Rhythm: regular rhythm Heart sounds: S1 normal heart sound present and S2 normal heart sound present GI Inspection: Yes normal to inspection Palpation (GI): Soft to palpation and Other GI palpation findings present (nontender, no cva tenderness) Auscultation: normoactive bowel sounds Rectal Exam - Female: deferred Skin General skin exam: no rashes or lesions noted Neuro General: patient oriented x3, gait normal and no focal motor deficits Coding Level of Care Code Est Pt Level 4 (83113) Complex EM visit Add On G2211 Diagnoses Urinary frequency R35.0 Depression, major, recurrent, moderate F33.1 HTN (hypertension), benign I10 Assessment & Plan Assessment & Plan (1) Urinary frequency: Code(s): R35.0 - Frequency of micturition Category: Medical Plan: UA and culture ordered. Labs ordered. Referral to Urology (2) Depression, major, recurrent, moderate: Code(s): F33.1 - Major depressive disorder, recurrent, moderate Category: Medical Plan: Stable. Encouraged her to see [facility]. Continue current medication plan (3) HTN (hypertension), benign: Code(s): I10 - Essential (primary) hypertension Category: Medical Plan: WNL. Continue current regimen Orders: Orders UA CC w/rflx Micro + Cult Today R35.0 - Frequency of micturition, Z13.220 - Encounter for screening for lipoid disorders Referrals Urology Referral R35.0 - Frequency of micturition Medications: New acetaminophen 1,000 mg (2 x 500 mg) PO Q6H PRN 100 tabs 1RF pain magnesium oxide 400 mg PO DAILY 90 tabs 1RF Changed From buspirone 5 mg PO TID 90 tabs 3RF To buspirone 5 mg PO TID 270 tabs 3RF 90 days From sertraline 150 mg PO DAILY To sertraline 150 mg (1.5 x 100 mg) PO DAILY 135 tabs 3RF 90 days Refilled buspirone 5 mg PO TID 90 tabs 3RF
[2024-02-08 14:54] VITALS: BP 132/82; PULSE 71; O2SAT 98; BMI 33.4
== END 2024-02-08 15:24 | disposition home or self-care (01) ==
PROVIDERS: PCP Physician Assistant; Visit Provider Physician Assistant
DX: R35.0 Frequency of micturition (principal); F33.1 Major depressive disorder, recurrent, moderate; I10 Essential (primary) hypertension

== ENCOUNTER → 2024-02-08 14:38 | Outpatient (BNVA) | payer MEDICARE, MEDICAID, SELFPAY | PROVIDERS: PCP Physician Assistant; Visit Provider Physician Assistant | DX: R35.0 Frequency of micturition (principal); F33.1 Major depressive disorder, recurrent, moderate; I10 Essential (primary) hypertension | CPT/HCPCS: 99212 ==

== ENCOUNTER 2024-03-26 14:02 | Outpatient (AMB) | payer MEDICARE, MEDICAID, SELFPAY ==
[2024-03-26 14:04] VITALS: BP 136/72; PULSE 78; O2SAT 100; BMI 33.5
--- NOTE | 2024-03-26 14:04 | MHC.OFFVIS ---
Vital Signs 03/26/24 14:04 Height 5 ft 3 in Weight 189 lb BMI 33.5 BP 136/72 Blood Pressure Location Rt brachial Position Sitting Pulse 78 Pulse Source Pulse Oximeter Pulse Oximetry (%) 100 Oxygen Delivery Method Room Air Intake Visit Reasons: COPD Finished Goods Planner Required: No Supervisor Self Service Store: Supervisor Self Service Store offered & declined Accompanied by: Self / Same As Patient Allergies codeine Allergy (Intermediate, Verified 03/26/24 14:09) headache duloxetine [From Cymbalta] Allergy (Mild, Verified 03/26/24 14:09) Itching Medication List - Last Reconciled 03/26/24 by Lesia Finnegan LPN acetaminophen 1,000 mg (2 x 500 mg) PO Q6H PRN albuterol sulfate 90 mcg/actuation 2 puffs inhalation Q6H PRN 30 days aspirin 81 mg PO DAILY atorvastatin 40 mg PO DAILY biotin mcg PO DAILY Breo Ellipta 200-25 mcg/dose (fluticasone furoate-vilanterol) 1 inh inhalation DAILY NS buspirone 5 mg PO TID 90 days cholecalciferol (vitamin D3) 50 mcg PO DAILY diclofenac sodium 1% 4 grams topical QID PRN docusate sodium 100 mg PO BID isosorbide mononitrate ER 30 mg PO DAILY lorazepam 0.5 mg PO BEDTIME PRN 30 days magnesium oxide 400 mg PO DAILY mecobalamin (vitamin B12) mcg PO DAILY meloxicam 15 mg PO DAILY metoprolol tartrate 12.5 mg PO BID gd-pkn-bueva-calcium carb-K1 400 mcg-500 mg calcium-20 mcg (Women's 50 Plus Multivitamin) tabs PO pantoprazole 40 mg PO DAILY pyridoxine (vitamin B6) 100 mg PO DAILY sertraline 150 mg (1.5 x 100 mg) PO DAILY 90 days simethicone 80 mg PO Q6H PRN sucralfate 1 g PO BID vit C,E,Zn,Po-dclyx5-ahz-zeax 250-2.5-0.5 mg caps PO HPI HPI COPD: Details: Rose is a pleasant 79 year female, former smoker with less than 10 pack year history, quit 20 years ago with underlying COPD, HTN, fibromyalgia, osteoporosis and h/o [facility] under the care of Dr. Contreras. At the last visit she continued to report progressively worsening dyspnea and intermittent cough and wheezing over the last few years. She was suboptimally controlled on pulmonicort and albuterol MDI, however not using Breo consistently. Since the last visit, she has been using Breo daily with good control of respiratory symptoms, using albuterol MDI PRN. She reports improvements in dyspnea, cough and wheezing, especially at night time. She does admit to being less active and gaining weight, but working towards increasing activity and weight loss. She denies any visits to urgent care or hospitalizations related to respiratory distress since the last visit. [facility] Medical History (Updated 02/08/24 @ 15:17 by Ayesha Marroquin PA-C) Insomnia Chronic fatigue IBS (irritable bowel syndrome) GERD (gastroesophageal reflux disease) Osteoporosis Fibromyalgia Depression, major, recurrent, moderate Generalized anxiety disorder CAD (coronary artery disease) Hyperlipidemia HTN (hypertension), benign Diverticulitis FHx: total knee replacement Surgical History S/P hip replacement H/O shoulder replacement Social History (Updated 02/08/24 @ 14:58 by Lorenza Doran CMA) Housing: Other Housing Other:: Mobile home Alcohol intake: current Patient Tobacco Use Status: Former Tobacco user Tobacco use type: Cigarette Years Smoked: 16 years total. Smoked socially. quit 25 years ago e-Cigarette/Vaping Use: Never Used Second Hand Smoke Exposure: Yes service: No Current occupational status: retired Cognitive needs: No Hearing needs: No Vision needs: No Review of Systems Const Denies chills, Denies excessive sweating, Denies fever(s), Denies headache(s) and Denies night sweats Eyes Denies dry eyes, Denies irritation and Denies itchy eyes ENT Reports Normal hearing present, Denies headache(s), Denies nasal congestion, Denies nasal discharge, Denies post nasal drip and Denies sore throat Card Denies chest pain, Denies chest pain at rest, Denies chest pain with activity, Denies claudication, Denies leg edema, Denies orthopnea and Denies paroxysmal nocturnal dyspnea Resp Denies chest congestion, Denies cough, Denies excessive phlegm production, Denies pain on inspiration, Denies pain with cough, Denies stridor and Denies wheezing Musc Denies myalgias Neuro Reports Normal hearing present and Denies headache(s) Endo Denies excessive sweating Rodolfo/Lymph Denies lymphadenopathy Aller/Immun Denies itchy eyes, Denies seasonal rhinorrhea and Denies wheezing Physical Exam Vital Signs: Last Vital Signs Pulse 78 03/26/24 14:04 BP 136/72 03/26/24 14:04 Pulse Ox 100 03/26/24 14:04 Oxygen Delivery Method Room Air 03/26/24 14:04 BMI result Body Mass Index 33.5 Const General: cooperative, healthy appearing, comfortable, no acute distress, well developed and alert Nutritional Appearance: obese Orientation/consciousness: patient oriented x3 Limitations: no limitations HEENT Head: Yes normal to inspection, Yes normocephalic and Yes atraumatic Ears: hearing grossly normal bilaterally and external ears normal Eyes General: appearance normal, both eyes and all related structures Eyelids: Yes eyelids normal Sclerae: sclerae normal EOM: EOMs intact bilaterally Neck Neck: Yes normal visual inspection and Yes no lymphadenopathy Lymphatic: no lymphadenopathy noted Chest Chest palpation & inspection: normal inspection of the chest Resp Effort & Inspection: normal respiratory effort, able to speak in complete sentences, no audible wheezes, no cough, no stridor, not tachypneic, no tripod positioning and no use of accessory muscles Auscultation: clear to auscultation bilaterally Cardio Jugular venous distension: no JVD Rate: regular rate Rhythm: regular rhythm Skin Other: warm, dry General skin exam: no rashes or lesions noted Neuro General: patient oriented x3 Cranial nerves: Yes Normal hearing present Cognition (Neuro): normal cognition Gait exam (Neuro): Normal gait present Extrem General: Yes normal to inspection, Yes capillary refill normal, Yes no clubbing, cyanosis or edema and Yes no pedal edema Psych Appearance: grossly normal and well kempt Speech and movement: Normal speech and movement present and Clear speech present Affect: normal affect Attitude: cooperative Thought process: Normal thought process present Thought content: Normal thought content present Insight: Good insight present (Psych) Judgement: Good judgement present (Psych) Assessment & Plan Assessment & Plan (1) COPD (chronic obstructive pulmonary disease): Code(s): J44.9 - Chronic obstructive pulmonary disease, unspecified Category: Medical Qualifiers: COPD type: unspecified COPD Qualified Code(s): J44.9 - Chronic obstructive pulmonary disease, unspecified (2) Personal history of tobacco use: Code(s): Z87.891 - Personal history of nicotine dependence Category: Social Hx (3) Pulmonary nodule: Code(s): R91.1 - Solitary pulmonary nodule Category: Medical Plan Rose reports good control of respiratory symptoms on current regimen, advised to continue. Reeducated patient on inhaler use and will send spacer to use with albuterol MDI. Will also attempt to obtain prior cardiology records from Dr. Lynn, as recent chest CT possibly suggestive of pulmonary hypertension and echo from 03/2023 [facility] 36. All questions were answered and patient is in agreement of plan. Will follow-up in 3 months or sooner if needed. Medications: New inhalational spacing device (Aerochamber Plus Z Stat spacer) As directed 1 ea 0RF Coding Level of Care Code Est Pt Level 4 (98817) Diagnoses Chronic obstructive pulmonary disease, unspecified COPD type J44.9 COPD type: unspecified COPD Personal history of tobacco use Z87.891 Pulmonary nodule R91.1
--- OUTSIDE RECORDS SUMMARY | 2024-03-26 15:01 | XMS_ITS | Clinical Summary ---
Author Organization [address] [place] [address] [place] [id number] Phone Care Team Providers Care Furnace Process Plant Operator Name Role Phone Ayesha Marroquin Primary Care Provider [phone] Allergies Active Allergy Reactions Criticality Noted Date Comments Codeine 12/23/2021 Duloxetine Hcl 08/07/2023 Itchy skin Medications Medication Sig Dispensed Refills Start Date End Date Status BABY ASPIRIN ORAL Take by mouth daily. Active BIOTIN ORAL Take by mouth. Active meclizine HCl (MECLIZINE ORAL) Take by mouth. Acti ve folic acid/multivit-mi n/lutein (CENTRUM SILVER ORAL) one tablet daily Active polyethylene glycol (PEG) 17 gram/dose oral powder One capful (17g) once daily as needed for constipation. 02/16/2021 Active pyridoxine HCl, vitamin B6, (PYRIDOXINE, VITAMIN B6, ORAL) Take by mouth. Active albuterol HFA (Ventolin HFA) 90 mcg/actuation inhaler Inhale 2 Puffs into the lungs every 4 hours as needed for Cough, Wheezing or Shortness of Breath. 09/03/2021 Active atorvastatin (LIPITOR) 40 mg tablet Take 1 Tablet by mouth daily. 05/09/2022 Active busPIRone (BUSPAR) 5 mg tablet Take 1 Tablet by mouth 3 times daily. Active cyanocobalamin (VITAMIN B-12) 500 mcg tablet one tablet daily Acti ve diclofenac (VOLTAREN) 1 % topical gel Apply 1 Drop topically 3 times daily. 09/14/2020 Active docusate sodium (COLACE) 100 mg capsule TAKE 1 CAPSULE BY MOUTH TWICE DAILY FOR 10 DAYS NEEDED FOR constipation 12/08/2022 Active fluticasone propionate (FLONASE) 50 mcg/actuation nasal spray INSTILL 2 SPRAYS INTRANASALLY ONCE DAILY 04/01/2022 Active lisinopriL (PRINIVIL,ZESTRI L) 10 mg tablet Take 1 Tablet by mouth daily for 180 days. 08/21/2023 Active LORazepam (ATIVAN) 1 mg tablet Take 1 Tablet by mouth every 6 hours as needed. Active metoprolol tartrate (LOPRESSOR) 25 mg tablet TAKE 1/2 tablet (12.5mg) BY MOUTH TWICE DAILY 12/12/2023 Active pantoprazole (PROTONIX) 40 mg EC tablet Take 1 Tablet by mouth daily. Take in a.m. on empty stomach, wait 30 minutes and then eat and take the rest of your medications 08/20/2021 Active sertraline (ZOLOFT) 100 mg tablet Take 1 Tablet by mouth daily. Take 1.5 tab Active simethicone (MYLICON) 80 mg chewable tablet Take 1 Tablet by mouth every 6 hours as needed for Flatulence. 10/11/2021 Active sucralfate (CARAFATE) 1 gram tablet Take 1 tablet by mouth 2 times daily At noon and at bedtime 04/03/2023 Active isosorbide mononitrate (IMDUR) 30 mg 24 hr tablet Take 1 Tablet by mouth daily 30 tablet 5 03/01/2024 Active isosorbide mononitrate (IMDUR) 30 mg 24 hr tablet Take 1 Tablet by mouth daily for 180 days. 08/07/2023 Discontinued Active Problems Problem Noted Date Diagnosed Date Bloating 12/29/2023 Nausea 12/29/2023 Diastolic dysfunction 12/18/2023 Overview (12/29/2023): Grade 2 diastolic dysfunction seen on echocardiogram 03/30/2023. Last Assessment & Plan: The patient continues to have ongoing shortness of breath with exertion; however, appears euvolemic on exam today. The EDP was normal on cardiac catheterization completed 10/11/2023. She is being worked up for her shortness of breath from a pulmonary standpoint; she does have COPD and will be undergoing a CT of the chest next week. She is aware that her dyspnea on exertion does not appear to be cardiac in nature; however, if her pulmonary workup is unrevealing, we may consider adding low-dose diuretic or even an SGLT2 inhibitor to see if this improves symptoms. We will continue to readdress this as indicated. Coronary artery disease 11/07/2023 Overview (12/29/2023): Last Assessment & Plan: Mild nonobstructive coronary artery disease noted on cardiac cath 10/12/2023. She presents today with ongoing symptoms of shortness of breath with exertion which is being worked up from a pulmonary standpoint given lack of obstructive coronary disease noted on recent cath. She is having episodes of atypical chest pain that appear to be related to her GERD; we discussed measures for decreased GERD symptoms such as avoidance of food triggers (including alcohol) and not eating too close to bedtime. She offers no exertional chest pain or pressure. We will continue GDMT with metoprolol and isosorbide in addition to atorvastatin and daily ASA. I have reviewed with the patient the importance of a heart healthy lifestyle which includes eating a low-fat low-salt diet, getting regular exercise, maintaining a healthy weight, not smoking, and following up with routine medical care. Patient advised to seek emergency medical attention by calling 911 if they were to develop severe dyspnea, chest pain that did not resolve with rest, or if they were to faint. Activity intolerance 12/29/2022 COPD (chronic obstructive pulmonary disease) 03/2022 Dyspnea on exertion 12/29/2022 Hyponatremia 12/29/2022 Overview (12/29/2023): Last Assessment & Plan: Patient is currently being followed by her PCP for this. Mild anemia 12/29/2022 Overview (12/29/2023): Last Assessment & Plan: Mild, and I do not believe that this is contributing to her symptoms. Her PCP is following her for this. Mitral regurgitation 12/29/2022 Overview (12/29/2023): Last Assessment & Plan: On most recent echocardiogram 03/30/2023; we will continue to monitor with serial imaging. IgG monoclonal gammopathy 12/21/2021 Spinal stenosis of lumbar region 01/24/2017 Vitamin D deficiency 07/19/2016 Diverticulosis 11/23/2015 Overview (12/29/2023): [facility] Cervical spinal stenosis 09/17/2015 Esophageal spasm 09/17/2015 Hiatal hernia 09/17/2015 Leukopenia 06/10/2015 Murmur, cardiac 02/07/2015 Overview (12/29/2023): Echo w/ no sign valv dz; fxnal murmur; see cardio note 03/14, Dr. Lynn; mild diast dysfxn Last Assessment & Plan: Patient has longstanding history of cardiac murmur, reports that many providers are unable to hear it. It is very faint on exam today. Last echocardiogram dated August 2021 that showed 1+ mitral regurgitation and trace tricuspid regurgitation but no other significant valvular abnormalities. She reports in the last year a new and persistent shortness of breath with exertion in addition to activity intolerance. She has seen her PCP who has begun a cardiac work-up having had ordered an echocardiogram and stress test in September 2022. The patient believes that she has her stress test scheduled already but is unsure when or where, however she is not sure about the echocardiogram. I have requested that she go home and ensure that the stress test is scheduled. I will reorder the echocardiogram for her today for further evaluation of this murmur and other potential underlying cause for her activity intolerance and shortness of breath, though I suspect this will show nothing more than what was previously seen. 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 She admits she has not been overly compliant with her Pulmicort, and does not always use her Ventolin when she could. I have encouraged increased compliance with these medications as she does report some improvement in her symptoms when she uses her Ventolin. Anxiety 07/01/2013 Primary osteoarthritis of right shoulder 014 Restless legs 12/22/2012 Herpes zoster 04/23/2012 Overview (12/29/2023): Pt has shingles per note of Dr. Garcia on 01/29/2012. IMO update Osteoarthritis 04/23/2012 Overview (12/29/2023): Noted from dictation of Dr. Radha Prescott on 11/25/2011. Pt has bilateral knee replacements. IMO update Primary hypertension 07/22/2011 Overview (12/29/2023): Last Assessment & Plan: Sugars well-controlled on current medical therapy; continue metoprolol, lisinopril, and isosorbide. Most recent metabolic panel stable on 10/11/2023. Tinnitus 07/22/2011 Ventral hernia 09/17/2010 Constipation 12/13/2009 Gastroparesis 12/13/2009 Overview (12/29/2023): Dr. Grossman; +gastric emptying study Depression 08/11/2009 Insomnia 08/11/2009 Hyperlipemia 05/25/2009 Overview (12/29/2023): Last Assessment & Plan: Most recent lipid panel available for review from 08/16/2021 shows LDL of 64; this is historically managed by her PCP. LDL goal is less than 70 given her new diagnosis of coronary artery disease. Continue atorvastatin 40 mg once daily. Immunizations Name Administration Dates Next Due Influenza Quadravalent, MDCK , 0.5ml, with preservative (Flucelvax) 6mo and older 01/24/2017 Influenza trivalent, 0.5mL ( Fluad) 65yo and older 11/18/2021,11/30/2020,12/13/2019,11/09,12/29/2017,11/14/2014 Influenza trivalent, 0.5mL, preservative free (Fluarix; FluLaval; Fluzone) ages 6mo and older (Afluria) 3 years and older 12/20/2013,12/21/2012,11/25/2011,11/26,01/06/2010 [employer] SARS-CoV-2 COVID-19, mRNA, LNP-S, preservative free 03/04/2021,05/29/2020,05/08/2020 Pneumococcal conjugate 13 va lent (Prevnar 13, PCV13) 2mo and older 12/23/2015 Pneumococcal polysaccharide 23 valent (Pneumovax 23) 2yo and older 11/26/2010 Td Tetanus diptheria (Tdvax) 7yo and older 12/22/2010 Surgical History Surgery Date Site/Laterality Comments KNEE SURGERY PROCEDURE: HISTORICAL KNEE SURGERY; COMMENT: knee replacements bilateral 06/05; 05/30; fingeroth OTHER SURGICAL HISTORY PROCEDURE: GA CHOLECYSTECTOMY W/EXPLORATION COMMON DUCT FOOT SURGERY PROCEDURE: HISTORICAL FOOT SURGERY; COMMENT: left foot pin placed BUNIONECTOMY PROCEDURE: BUNION SURGERY, SIMPLE REMOVAL; COMMENT: bilateral OTHER SURGICAL HISTORY PROCEDURE: GA COLECTOMY PRTL W/COLOST/ILEOST & MUCOFISTULA; COMMENT: diverticulitis CERVICAL BIOPSY W/ LOOP ELEC TRODE EXCISION PROCEDURE: HISTORICAL CONE BIOPSY COLONOSCOPY 2003 PROCEDURE: OUTSIDE COLONOSCOPY; COMMENT: tics OTHER SURGICAL HISTORY 11/19/15 [facility] PROCEDURE: COLON CA SCRN NOT HI RSK IND; COMMENT: tics and hemorrhoids; would not repeat ESOPHAGOGASTRODUODENOSCOPY 11/19/15 [facility] PROCEDURE: GA EGD TRANSORAL BIOPSY SINGLE/MULTIPLE; COMMENT: gastric erythema; nl appearing esophagus, dilated empirically to 20 mm; reactive antral changes w/o H. pylori; nl esoph. bxys SHOULDER SURGERY 01/08/2019 Right PROCEDURE: HISTORICAL SHOULDER SURGERY; COMMENT: arthroplasty; Dr. Clay ESOPHAGOGASTRODUODENOSCOPY 02/18/2021 PROCEDURE: GA EGD TRANSORAL BIOPSY SINGLE/MULTIPLE; COMMENT: retained bile. biopsy negative for H.pylori Medical History Medical History Date Comments Depression DX:Depression Stenosis, spinal, lumbar DX:Sten osis, spinal, lumbar Diverticulosis DX:Diverticulosi s Hiatal hernia DX:Hiatal hernia Cervical spinal stenosis DX:Cerv ical spinal stenosis Leukopenia DX:Leukopenia Anxiety DX:Anxiety Arthritis of right shoulder region DX:Arthritis of right shoulder region Hypertension DX:Hypertension Tinnitus DX:Tinnitus Osteoarthritis DX:Osteoarthriti s Gastroparesis DX:Gastroparesis ; COMMENT: Dr. Grossman Depression DX:Depression Anxiety DX:Anxiety Diverticulitis DX:Diverticuliti s GERD (gastroesophageal reflux disease) DX:GERD (gastroesophageal reflux disease); COMMENT: Dr. Grossman Osteomyelitis ([facility]) 2001 DX:Osteo myelitis ([facility]); COMMENT: spine Other specified personal his tory presenting hazards to health(V15.89) DX:Other specifie d personal history presenting hazards to health(V15.89); COMMENT: cone biopsy in 30's Historical Medical DX DX:Ventral hernia; COMMENT: small Hypertension, essential 07/22/2011 DX:Hyper tension, essential Osteoarthrosis, unspecified whether generalized or localized, unspecified site 04/23/2012 DX:Osteoarthrosis, unspecifi ed whether generalized or localized, unspecified site Tinnitus 07/22/2011 DX:Tinnitus Restless legs 12/22/2012 DX:Restless legs Insomnia 08/11/2009 DX:Insomnia Hyperlipemia 05/25/2009 DX:Hyperlipemia Herpes zoster without mentio n of complication 04/23/2012 DX:Herpes zoster without men tion of complication; COMMENT: Pt has shingles per note of Dr. Garcia on 01/29/2012. Constipation 12/13/2009 DX:Constipation Bloating DX:Bloating Nausea DX:Nausea Mild anemia 12/29/2022 Family History Medical History Relation Name Comments Coronary artery disease Brother Coronary artery disease Father Prostate cancer Father Coronary artery disease Mother Diabetes Mother Breast cancer Neg Hx Colon cancer Neg Hx Ovarian cancer Neg Hx Relation Name Status Comments Brother (Age 45) [place] Daughter Alive 1970 healthy Father (Age 80) ? heart va lve problems, prostate ca, chf Mother (Age 81) lipids, di abetes, double bypass, [place]; CHF Sister 1 Alive thyroid Sister 2 Alive unknown Son Alive 1966 depression , drug abuse, suicide attempts; jatinder head injury Social History Tobacco Use Types Packs/Day Years Used Date Smoking Tobacco: Former Cigarettes 0.2 16 1 04/17/1980 - 02/27/1997 Smokeless Tobacco: Former Alcohol Use Standard Drinks/Week Comments Yes 21 (1 standard drink = 0.6 oz pu re alcohol) Sex and Gender Information Value Date Recorded Sex Assigned at Not on file Gender Identity Not on file Sexual Orientation Not on file Job Start Date Occupation Industry Not on file Not on file Not on file Obstetrics History Last Filed Vital Signs Vital Sign Reading Time Taken Comments Blood Pressure 120/60 12/18/2023 1:13 PM EDT Sit ting L Arm Pulse 71 12/18/2023 1:13 PM EDT Temperature - - Respiratory Rate - - Oxygen Saturation - - Inhaled Oxygen Concentration - - Weight 84.4 kg (186 lb) 12/18/2023 1:13 PM EDT Height 162.6 cm (5' 4 ) 12/18/2023 1:13 PM EDT Body Mass Index 31.93 12/18/2023 1:13 PM EDT Plan of Treatment Upcoming Encounters Date Type Department Care Team (Late st Contact Info) Description 03/27/2024 1:30 PM EST Office Visit [facility] Hematology Oncology [address] [place] [id number] Kristi Contreras MD [address] [place] [address] Health Maintenance Due Date Last Done Comments Zoster Vaccines (1 of 2) 1993 RSV Immunization Patients 60+ Years Old (1 - 1-dose 75+ series) 2018 Depression Screening 02/05/2022 Falls Risk Assessment 02/05/2022 Social Influencers of Health Screening 02/05/2022 Hypertension/CHF/CAD Annual BMP Blood Test 08/16/2022 08/16/2021 Medicare Annual Wellness Visit 08/20/2022 08/20/2021 COVID-19 Vaccine ( season) 2023 03/04/2021, 05/29/2020, 05/08/2020 Influenza Vaccine (#1) 2023 2, 11/30/2020, 12/13/2019, Additional history exists Cholesterol Screening (Lipid Panel) 08/16/2026 08/16/2021 Osteoporosis Screening (Bone Density Screening) 05/03/2028 05/03/2018 DTaP,Tdap,and Td Vaccines (3 - Td or Tdap) 09/03/2030 09/03/2020, 12/22/2010 Pneumococcal Vaccine: 65+ Years Completed 12/23/2015, 11/26/2010 HIB Vaccines Aged Out No longer eligi ble based on patient's age to complete this topic HPV Vaccines Aged Out No longer eligi ble based on patient's age to complete this topic Hepatitis A Vaccines Aged Out No long er eligible based on patient's age to complete this topic Hepatitis B Vaccines Aged Out No long er eligible based on patient's age to complete this topic IPV Vaccines Aged Out No longer eligi ble based on patient's age to complete this topic MMR Vaccines Aged Out No longer eligi ble based on patient's age to complete this topic Meningococcal ACWY Vaccine Aged Out N o longer eligible based on patient's age to complete this topic RSV Immunization Patients Under 20 months Aged Out No longer eligible based on patient's age to complete this topic Varicella Vaccines Aged Out No longer eligible based on patient's age to complete this topic Procedures Procedure Name Priority Date/Time Associated Diagnosis Comments ANNUAL BMP BLOOD TEST Routine 08/16/2021 LIPID PANEL Routine 08/16/2021 DXA BONE DENSITY STUDY 1+ SITS AXIAL SKEL Routine 05/03/2018 12:46 PM EST Fracture of unspecified carpal bone, left wrist, subsequent encounter for fracture with delayed healing from Last 3 Months or Most Recently Relevant to Health Maintenance Results * Annual BMP Blood Test (08/16/2021) Pathologist [facility] Annual BMP Blood Test Abstracted Historical Provider MD ROMARIO HARMON E * (ABNORMAL) Lipid panel (08/16/2021) Pathologist [facility] LDL/HDL Ratio 3 0 - 4 Triglycerides 203(A) 0 - 150 mg/dL Cholesterol 175 0 - 200 mg/dL HDL 71 40 mg/dL LDL Cholesterol 64 0 - 100 mg/dL Blood Venous blood specimen / Unknown Historical Provider LAB BLOOD ORDERAB LES * DXA BONE DENSITY STUDY 1+ SITS AXIAL SKEL (05/03/2018 12:46 PM EST) Anatomical Region Laterality Modality Bone Densitometr y 01/25/2018 10:4 2 AM EST Narrative 05/03/2018 5:35 PM EST DEXA SCAN: Lumbar Spine T-score is -0.2. ?? (SD relative to 20-29 y/o adult) Z-score is 2.2. ??(SD relative to age matched peers) This is considered normal by WHO criteria. Left Hip T-score is -0.9. Z-score is 1.2. This is considered normal by WHO criteria. Comparison exam(s): Compared with 12/31/2014 left hip bone mineral density has decreased 7.4% and lumbar spine decreased 6.9%. IMPRESSION: Normal by WHO criteria. [facility] Department of Internal Medicine recommends using National Osteoporosis Foundation (NOF) guidelines in treatment decisions related to osteoporosis. NOF guidelines suggest considering treatment for postmenopausal women and men aged 50 or older presenting with the following: History of hip or vertebral fracture. T-score = -2.5 (DXA) at the femoral neck, total hip, or spine, after appropriate evaluation to exclude secondary causes. Low bone mass (T-score between -1.0 and -2.5 at the femoral neck or spine) AND a 10-year probability of a hip fracture = 3% OR a 10-year probability of a major osteoporosis-related fracture = 20% based on the [place]-adapted WHO algorithm Please note that all treatment decisions require clinical judgment and consideration of individual patient factors, including patient preferences, co-morbidities, previous drug use, risk factors not captured in the FRAX model (e.g., frailty, falls, vitamin D deficiency, increased bone turnover, interval significant decline in bone density) and possible under- or over-estimation of fracture risk by FRAX. Optional alternative screening schedule based on tara Chirinos., [facility] March 17, 2011 for patients with osteopenia (based on hip BMD T-score) is as follows: * ??advanced osteopenia (T scores -2.00 to -2.49), BMD testing every year * ??moderate osteopenia (T scores -1.50 to -1.99), BMD testing every 5 years mild osteopenia or normal BMD (T scores -1.50 and higher), BMD testing every 15 years Procedure Note Brandon Mccartney MD - 02/15/2022 DEXA SCAN: Lumbar Spine T-score is -0.2. (SD relative to 20-29 y/o adult) Z-score is 2.2. (SD relative to age matched peers) This is considered normal by WHO criteria. Left Hip T-score is -0.9. Z-score is 1.2. This is considered normal by WHO criteria. Comparison exam(s): Compared with 12/31/2014 left hip bone mineral densityhas decreased 7.4% and lumbar spine decreased 6.9%. IMPRESSION: Normal by WHO criteria. [facility] Department of Internal Medicine recommendsusing National Osteoporosis Foundation (NOF) guidelines in treatment decisions related toosteoporosis. NOF guidelines suggest considering treatment for postmenopausal women and menaged 50 or older presenting with the following: History of hip or vertebral fracture. T-score = -2.5 (DXA) at the femoral neck, total hip, or spine, afterappropriate evaluation to exclude secondary causes. Low bone mass (T-score between -1.0 and -2.5 at the femoral neck or spine)AND a 10-year probability of a hip fracture = 3% OR a 10-year probability of a majorosteoporosis-related fracture = 20% based on the [place]-adapted WHO algorithm Please note that all treatment decisions require clinical judgment andconsideration of individual patient factors, including patient preferences, co- morbidities,previous drug use, risk factors not captured in the FRAX model (e.g., frailty, falls, vitaminD deficiency, increased bone turnover, interval significant decline in bone density) andpossible under- or over-estimation of fracture risk by FRAX. Optional alternative screening schedule based on tara Chirinos., NEJMJanuary 2011 for patients with osteopenia (based on hip BMD T-score) is as follows: * advanced osteopenia (T scores -2.00 to -2.49), BMD testing every year * moderate osteopenia (T scores -1.50 to -1.99), BMD testing every 5years mild osteopenia or normal BMD (T scores -1.50 and higher), BMD testingevery 15 years Nita Perkins MD IMG DXA PROCEDU RES from Last 3 Months or Most Recently Relevant to Health Maintenance Care Teams Furnace Process Plant Operator Relationship Specialty Start Date End Date Ayesha Marroquin PA [address] [place] [id number] PCP - General 12/29/22
--- OUTSIDE RECORDS SUMMARY | 2024-03-26 15:01 | XMS_ITS | Clinical Summary ---
Author Organization [facility] Facility Address [address] [address] Care Team Providers Care Home Advisor Name Role Phone Ayesha Marroquin PA-C Primary Care Provider + Social History Tobacco Use Types Packs/Day Years Used Date Smoking Tobacco: Never Assessed Comments Unknown Sex and Gender Information Value Date Recorded Sex Assigned at Not on file Legal Sex Female 8:37 AM EDT Gender Identity Not on file Sexual Orientation Not on file Plan of Treatment Health Maintenance Due Date Last Done Comments Influenza Vaccine (#1) 2023 2, 11/30/2020, 12/13/2019, Additional history exists Pneumococcal Vaccine: 65+ Years Completed 12/23/2015, 11/26/2010 Hepatitis B Vaccine Aged Out No longe r eligible based on patient's age to complete this topic Insurance MEDICARE MEDICAID [place] Care Teams Home Advisor Relationship Specialty Start Date End Date Ayesha Marroquin PA-C [address] [place] [id number] PCP - General Physician Computer Engineer 08/23/23
--- OUTSIDE RECORDS SUMMARY | 2024-03-26 15:01 | XMS_ITS | Clinical Summary ---
Author Organization [facility] Address [address] [place] [id number] Care Team Providers Care Puppy Trainer Name Role Phone Maricarmen Thomas MD Primary Care Provid er Allergies Active Allergy Reactions Criticality Noted Date Comments Codeine 09/04/2019 Medications Medication Sig Dispensed Refills Start Date End Date Status Diclofenac Sodium 1 % GEL topical Place onto the skin. 0 A ctive traZODone (DESYREL) 50 MG tablet Take 1 tablet (50 mg total) by mouth every night at bedtime. 0 Active sertraline (ZOLOFT) 100 MG tablet Take 1 tablet (100 mg total) by mouth daily. 0 Active Glycerin, Laxative, (GLYCERIN, ADULT,) 2.[address] rectally. 0 Active Simethicone (GAS-X PO) Take by mouth. 0 Active pantoprazole (PROTONIX) 40 MG tablet Take 1 tablet (40 mg total) by mouth every morning on an empty stomach. 0 Active docusate sodium (COLACE) 100 MG capsule Take 1 capsule (100 mg total) by mouth 2 (two) times a day. 0 Active meloxicam (MOBIC) 15 MG tablet Take 1 tablet (15 mg total) by mouth daily. 0 Active lisinopril (PRINIVIL,ZESTRIL) tablet 10 mg Take 1 tablet (10 mg total) by mouth daily. 0 Active albuterol (PROVENTIL HFA;VENTOLIN HFA) 108 (90 Base) MCG/ACT inhaler Inhale 2 puffs into the lungs every 6 (six) hours as needed for wheezing. 0 Active fluticasone (FLONASE) 50 MCG/ACT nasal spray spray/apply 1 spray in each nostril daily. 0 Active ciclopirox (PENLAC) 8 % solution Apply topically every night at bedtime. Apply over nail and surrounding skin. Apply daily over previous coat. After seven (7) days, may remove with alcohol and continue cycle. 0 Active budesonide (PULMICORT FLEXHALER) 90 MCG/ACT inhaler Inhale 1 puff into the lungs 2 (two) times a day. 0 Active meclizine (ANTIVERT) 25 MG tablet Take 1 tablet (25 mg total) by mouth 3 (three) times a day as needed. 0 Active atorvastatin (LIPITOR) tablet 40 mg Take 1 tablet (40 mg total) by mouth daily. 0 Active pyridoxine (B-6) 50 MG tablet Take 1 tablet (50 mg total) by mouth daily. 0 Active VITAMIN A OP Apply to eye. 0 Active vitamin E 100 UNIT capsule Take 1 capsule (100 Units total) by mouth daily. 0 Active Pediatric Multivitamins-Fl (MULTI VIT/FL PO) Take by mouth. 0 Act pam Multiple Vitamins-Minerals (PRESERVISION AREDS 2 PO) Take by mouth. 0 Active sucralfate (CARAFATE) 1 g tablet Take 1 tablet (1 g total) by mouth 4 (four) times a day. 0 Active Active Problems No known active problems Social History Tobacco Use Types Packs/Day Years Used Date Smoking Tobacco: Former Smokeless Tobacco: Never Alcohol Use Standard Drinks/Week Comments Yes 21 (1 standard drink = 0.6 oz pu re alcohol) Sex and Gender Information Value Date Recorded Sex Assigned at Not on file Gender Identity Not on file Sexual Orientation Not on file Job Start Date Occupation Industry Not on file Not on file Not on file Last Filed Vital Signs Vital Sign Reading Time Taken Comments Blood Pressure 149/78 11/28/2022 1:55 PM EDT Pulse 77 11/28/2022 1:55 PM EDT Temperature 36.6 ??C (97.9 ??F) 11/28/2022 1:55 PM ED T Respiratory Rate - - Oxygen Saturation 98% 11/28/2022 1:55 PM EDT Inhaled Oxygen Concentration - - Weight 81.2 kg (179 lb) 11/28/2022 1:55 PM EDT Height 161.9 cm (5' 3.75 ) 11/28/2022 1:55 PM ED T Body Mass Index 30.97 11/28/2022 1:55 PM EDT Plan of Treatment Health Maintenance Due Date Last Done Comments Depression Screening 1955 Preventative Health Evaluation 1961 Shingrix-Zoster Vaccine (1 of 2) 1993 Fall Risk Assessment 02/15/2008 Osteoporosis Screening (DEXA Scan) 02/15/2008 RSV Adult > 60+ Yrs or (1 - 1-dose 75+ series) 2018 COVID-19 Vaccine ( season) 2023 03/04/2021, 05/29/2020, 05/08/2020 Influenza Vaccine (#1) 2023 2, 11/18/2021, 11/30/2020, Additional history exists DTap / Tdap / Td (2 - Td or Tdap) 09/03/2030 09/03/2020, 12/22/2010 Pneumococcal Vaccine Completed 12/23/2015, 11/27/19 11 Hepatitis B Vaccines Aged Out No long er eligible based on patient's age to complete this topic RSV Ped < 20 months Aged Out No longe r eligible based on patient's age to complete this topic Care Teams Puppy Trainer Relationship Specialty Start Date End Date Maricarmen Thomas MD PCP - General Internal Medicine 07/17/18
== END 2024-03-26 14:38 | disposition home or self-care (01) ==
PROVIDERS: PCP Physician Assistant; Visit Provider Nurse Practitioner Family
DX: J44.9 Chronic obstructive pulmonary disease, unspecified (principal); Z87.891 Personal history of nicotine dependence; R91.1 Solitary pulmonary nodule
CPT/HCPCS: 99214

== ENCOUNTER → 2024-03-26 14:02 | Outpatient (BNVA) | payer MEDICARE, MEDICAID, SELFPAY | PROVIDERS: PCP Physician Assistant; Visit Provider Nurse Practitioner Family | DX: J44.9 Chronic obstructive pulmonary disease, unspecified (principal); M79.7 Fibromyalgia; M81.0 Age-related osteoporosis without current pathological fracture; I10 Essential (primary) hypertension; R91.1 Solitary pulmonary nodule; Z87.891 Personal history of nicotine dependence | CPT/HCPCS: 99212 ==

== ENCOUNTER 2024-05-29 18:08 | Outpatient (REF) | payer MEDICARE, MEDICAID, SELFPAY ==
--- OUTSIDE RECORDS SUMMARY | 2024-05-29 18:15 | XMS_ITS | Clinical Summary ---
Author Organization [address] [place] [address] [place] [phone] Phone Care Team Providers Care Gravedigger Name Role Phone Ayesha Marroquin Primary Care Provider [phone] Allergies Active Allergy Reactions Criticality Noted Date Comments Codeine 12/23/2021 Duloxetine Hcl 08/07/2023 Itchy skin Medications BABY ASPIRIN ORAL Take by mouth daily. Active BIOTIN ORAL Take by mouth. Act pam meclizine HCl (MECLIZINE ORAL) Take by mouth. Activ e folic acid/multivit-m in/lutein (CENTRUM SILVER ORAL) one tablet daily Act pam polyethylene glycol (PEG) 17 gram/dose oral powder One capful (17g) once daily as needed for constipation. 1 Active pyridoxine HCl, vitamin B6, (PYRIDOXINE, VITAMIN B6, ORAL) Take by mouth. Activ e albuterol HFA (Ventolin HFA) 90 mcg/actuation inhaler Inhale 2 Puffs into the lungs every 4 hours as needed for Cough, Wheezing or Shortness of Breath. 2 Active atorvastatin (LIPITOR) 40 mg tablet Take 1 Tablet by mouth daily. 3 Active busPIRone (BUSPAR) 5 mg tablet Take 1 Tablet by mouth 3 times daily. Active cyanocobalamin (VITAMIN B-12) 500 mcg tablet one tablet daily Active diclofenac (VOLTAREN) 1 % topical gel Apply 1 Drop topically 3 times daily. 1 Active docusate sodium (COLACE) 100 mg capsule TAKE 1 CAPSULE BY MOUTH TWICE DAILY FOR 10 DAYS NEEDED FOR constipation 3 Active fluticasone propionate (FLONASE) 50 mcg/actuation nasal spray INSTILL 2 SPRAYS INTRANASALLY ONCE DAILY 3 Active lisinopriL (PRINIVIL,ZESTR IL) 10 mg tablet Take 1 Tablet by mouth daily for 180 days. 4 Active LORazepam (ATIVAN) 1 mg tablet Take 1 Tablet by mouth every 6 hours as needed. Active metoprolol tartrate (LOPRESSOR) 25 mg tablet TAKE 1/2 tablet (12.5mg) BY MOUTH TWICE DAILY 4 Active pantoprazole (PROTONIX) 40 mg EC tablet Take 1 Tablet by mouth daily. Take in a.m. on empty stomach, wait 30 minutes and then eat and take the rest of your medications 2 Active sertraline (ZOLOFT) 100 mg tablet Take 1 Tablet by mouth daily. Take 1.5 tab Active simethicone (MYLICON) 80 mg chewable tablet Take 1 Tablet by mouth every 6 hours as needed for Flatulence. 2 Active isosorbide mononitrate (IMDUR) 30 mg 24 hr tablet Take 1 Tablet by mouth daily 30 tablet 5 5 Active Breo Ellipta 200-25 mcg/dose inhaler Inhale 1 puff by mouth 1 (one) time each day. 5 Active sucralfate (CARAFATE) 1 gram tablet Take 1 tablet by mouth 2 times daily At noon and at bedtime 60 tablet 11 5 Active Active Problems Problem Noted Date Diagnosed Date [...] disease. Continue atorvastatin 40 mg once daily. Encounters Date Type Department Care Team Description 04/18/2024 Telephone [facility] 2 [facility] [address] [place] [address] Ayesha Marroquin PA Medical Records 03/27/2024 1:30 PM EST Office Visit [facility] Hematology Oncology [address] [place] [address] Kristi Contreras MD IgG monoclonal gammopathy (Primary Dx); Normocytic anemia; Hyponatremia from Last 3 Months Immunizations Name Administration Dates Next Due Influenza Quadravalent, MDCK , 0.5ml, with preservative (Flucelvax) 6mo and older 01/24/2017 Influenza trivalent, 0.5mL ( Fluad) 65yo and older 11/18/2021,11/30/2020,12/13/2019,11/09,12/29/2017,11/14/2014 Influenza trivalent, 0.5mL, preservative free (Fluarix; FluLaval; Fluzone) ages 6mo and older (Afluria) 3 years and older 12/20/2013,12/21/2012,11/25/2011,11/26,01/06/2010 Pfizer SARS-CoV-2 COVID-19, mRNA, LNP-S, preservative free 03/04/2021,05/29/2020,05/08/2020 Pneumococcal conjugate 13 va lent (Prevnar 13, PCV13) 2mo and older 12/23/2015 Pneumococcal polysaccharide 23 valent (Pneumovax 23) 2yo and older 11/26/2010 Td Tetanus diptheria (Tdvax) 7yo and older 12/22/2010 Surgical History Surgery Date Site/Laterality Comments KNEE SURGERY PROCEDURE: HISTORICAL KNEE SURGERY; COMMENT: knee replacements bilateral 06/05; 05/30; fingeroth OTHER SURGICAL HISTORY PROCEDURE: MI CHOLECYSTECTOMY W/EXPLORATION COMMON DUCT FOOT SURGERY PROCEDURE: HISTORICAL FOOT SURGERY; COMMENT: left foot pin placed BUNIONECTOMY PROCEDURE: BUNION SURGERY, SIMPLE REMOVAL; COMMENT: bilateral OTHER SURGICAL HISTORY PROCEDURE: MI COLECTOMY PRTL W/COLOST/ILEOST & MUCOFISTULA; COMMENT: diverticulitis CERVICAL BIOPSY W/ LOOP ELEC TRODE EXCISION PROCEDURE: HISTORICAL CONE BIOPSY COLONOSCOPY 2003 PROCEDURE: OUTSIDE COLONOSCOPY; COMMENT: tics OTHER SURGICAL HISTORY 11/19/15 [facility] PROCEDURE: COLON CA SCRN NOT HI RSK IND; COMMENT: tics and hemorrhoids; would not repeat ESOPHAGOGASTRODUODENOSCOPY 11/19/15 [facility] PROCEDURE: MI EGD TRANSORAL BIOPSY SINGLE/MULTIPLE; COMMENT: gastric erythema; nl appearing esophagus, dilated empirically to 20 mm; reactive antral changes w/o H. pylori; nl esoph. bxys SHOULDER SURGERY 01/08/2019 Right PROCEDURE: HISTORICAL SHOULDER SURGERY; COMMENT: arthroplasty; Dr. Clay ESOPHAGOGASTRODUODENOSCOPY 02/18/2021 PROCEDURE: MI EGD TRANSORAL BIOPSY SINGLE/MULTIPLE; COMMENT: retained bile. [...] (gastroesophageal reflux disease); COMMENT: Dr. Grossman Osteomyelitis 2001 DX:Osteomyelitis (HCC); COMMENT: spine Other specified personal his tory presenting hazards to health(V15.89) DX:Other specifie d personal history presenting hazards to health(V15.89); COMMENT: cone biopsy in ' Historical Medical DX DX:Ventral hernia; COMMENT: small [...] Relation Name Status Comments Brother (Age 45) [place] Daughter Alive 1970 healthy Father (Age 80) ? heart va lve problems, prostate ca, chf Mother (Age 81) lipids, di abetes, double bypass, [place]; CHF Sister 1 Alive thyroid Sister 2 Alive unknown Son Alive 1966 depression , drug abuse, suicide attempts; jatinder head injury Social History Tobacco Use Types Packs/Day Years Used Date Smoking Tobacco: Former Cigarettes 0.2 16 1 04/17/1980 - 02/27/1997 Smokeless Tobacco: Former Alcohol Use Standard Drinks/Week Comments Yes 21 (1 standard drink = 0.6 oz pu re alcohol) Comments Unknown Sex and Gender Information Value Date Recorded Sex Assigned at Not on file Legal Sex Female 10:03 PM EST Gender Identity Not on file Sexual Orientation Not on file Obstetrics History Last Filed Vital Signs Vital Sign Reading Time Taken Comments Blood Pressure 158/79 03/27/2024 1:55 PM EST Pulse 62 03/27/2024 1:55 PM EST Temperature 36.2 ??C (97.2 ??F) 03/27/2024 1:55 PM ES T Respiratory Rate - - Oxygen Saturation 100% 03/27/2024 1:55 PM EST Inhaled Oxygen Concentration - - Weight 87.5 kg (193 lb) 03/27/2024 1:55 PM EST Height 160 cm (5' 3 ) 03/27/2024 1:55 PM EST Body Mass Index 34.19 03/27/2024 1:55 PM EST Plan of Treatment Upcoming Encounters Date Type Department Care Team (Late st Contact Info) Description 06/05/2024 3:15 PM EDT Office Visit [facility] Hematology Oncology [address] [place] [phone] Kristi Contreras MD [address] [place] [address] Health Maintenance Due Date Last Done Comments Zoster Vaccines (1 of 2) 1993 RSV Immunization Adult Patients (1 - 1-dose 75+ series) 2018 Depression Screening 02/05/2022 Falls Risk Assessment 02/05/2022 Social Influencers of Health Screening 02/05/2022 Medicare Annual Wellness Visit 08/20/2022 08/20/2021 COVID-19 Vaccine ( season) 2023 03/04/2021, 05/29/2020, 05/08/2020 Hypertension/CHF/CAD Annual BMP Blood Test 03/27/2025 03/27/2024, 08/16/2021 Cholesterol Screening (Lipid Panel) 08/16/2026 08/16/2021 Osteoporosis Screening (Bone Density Screening) 05/03/2028 05/03/2018 DTaP,Tdap,and Td Vaccines (3 - Td or Tdap) 09/03/2030 09/03/2020, 12/22/2010 Pneumococcal Vaccine: 50+ Years Completed 12/23/2015, 11/26/2010 Influenza Vaccine Completed 01/19/2024, , 11/30/2020, Additional history exists HIB Vaccines Aged Out No longer eligi [...] patient's age to complete this topic Meningococcal B Vacine Aged Out No lo nger eligible based on patient's age to complete this topic RSV Immunization Patients Under 20 months Aged Out No longer eligible based on patient's age to complete this topic Varicella Vaccines Aged Out No longer eligible based on patient's age to complete this topic Procedures Procedure Name Priority Date/Time Associated Diagnosis Comments CBC WITH AUTO DIFFERENTIAL Routine 03/27/2024 2:47 PM EST IgG monoclonal gammopathy Normocytic anemia Hyponatremia IMMUNOGLOBULINS IGG, IGA, IGM Routine 03/27/2024 2:47 PM EST Anemia, unspecified FOLATE Routine 03/27/2024 2:47 PM EST Normocytic anemia ERYTHROPOIETIN Routine 03/27/2024 2:47 PM EST Normocytic anemia RETICULOCYTE COUNT Routine 03/27/2024 2: 47 PM EST Normocytic anemia BETA 2 MICROGLOBULIN, SERUM Routine 03/27/2024 2:47 PM EST IgG monoclonal gammopathy Normocytic anemia Hyponatremia LACTATE DEHYDROGENASE Routine 03/27/2024 2:47 PM EST IgG monoclonal gammopathy Normocytic anemia Hyponatremia COMPREHENSIVE METABOLIC PANEL Routine 03/27/2024 2:47 PM EST IgG monoclonal gammopathy Normocytic anemia Hyponatremia KAPPA-LAMBDA QUANTITATIVE FREE LIGHT CHAINS Routine 03/27/2024 2:47 PM EST IgG monoclonal gammopathy Normocytic anemia Hyponatremia CBC AND DIFFERENTIAL Routine 03/27/2024 2:47 PM EST IgG monoclonal gammopathy Normocytic anemia Hyponatremia LIPID PANEL Routine 08/16/2021 DXA BONE DENSITY STUDY 1+ SITS AXIAL SKEL Routine 05/03/2018 12:46 PM EST Fracture of unspecified carpal bone, left wrist, subsequent encounter for fracture with delayed healing from Last 3 Months or Most Recently Relevant to Health Maintenance Results * (ABNORMAL) Buena-lambda free light chains, quantitative (03/27/2024 2:47 PM EST) Buena Free Light Chain 1.65 0.33 - 1.94 mg/dL 04/02/2024 7:11 AM EST [facility] Lambda Free Light Chain 0.97 0.57 - 2.63 mg/dL 04/02/2024 7:11 AM EST [facility] Buena/Lambda FLC Ratio 1.70(H) 0.26 - 1.65 04/02/2024 7:11 AM EST [facility] Comment: Test performed at [facility], [address] , [place], [place] ??[address] ? [phone] Mary Frost MD, PhD - Airplane Electrical Repairer Blood Venous blood specimen / Unknown Venipuncture / Unknown 03/27/2024 2:47 PM EST 03/27/2024 4:39 PM EST us Kristi Contreras MD LAB BLOOD ORDERABLES Final R esult [address] [place] [address] * (ABNORMAL) CBC auto differential (03/27/2024 2:47 PM EST) [facility] WBC 3.7(L) 4.8 - 10.8 K/mcL LAB HEMETOLOGY METHOD 03/27/2024 4:50 PM EST [facility] RBC 3.40(L) 3.80 - 4.80 M/mcL LAB HEMETOLOGY METHOD 03/27/2024 4:50 PM EST [facility] Hemoglobin 10.7(L) 11.5 - 16.0 g/dL LAB HEMETOLOGY METHOD 03/27/2024 4:50 PM [facility] Hematocrit 32.7(L) 35.0 - 47.0 % LAB HEMETOLOGY METHOD 03/27/2024 4:50 PM [facility] MCV 96.2 79.0 - 98.0 FL LAB HEMETOLOGY METHOD 03/27/2024 4:50 PM [facility] MCH 31.5 27.0 - 32.0 pcg LAB HEMETOLOGY METHOD 03/27/2024 4:50 PM [facility] MCHC 32.7 32.0 - 37.0 g/dL LAB HEMETOLOGY METHOD 03/27/2024 4:50 PM [facility] RDW 13.1 11.0 - 15.0 % LAB HEMETOLOGY METHOD 03/27/2024 4:50 PM [facility] Platelets 225 130 - 400 K/mcL LAB HEMETOLOGY METHOD 03/27/2024 4:50 PM [facility] MPV 9.9 7.0 - 11.0 FL LAB HEMETOLOGY METHOD 03/27/2024 4:50 PM [facility] NRBC 0.0 <1.0 % LAB HEMETOLOGY METHOD 03/27/2024 4:50 PM [facility] NRBC Absolute 0.00 <0.10 K/mcL LAB HEMETOLOGY METHOD 03/27/2024 4:50 PM [facility] Neutrophils Relative 42.4 % LAB HEMETOLOGY METHOD 03/27/2024 4:50 PM [facility] Lymphocytes Relative 36.3 % LAB HEMETOLOGY METHOD 03/27/2024 4:50 PM [facility] Monocytes Relative 13.2 % LAB HEMETOLOGY METHOD 03/27/2024 4:50 PM [facility] Eosinophils Relative 6.7 % LAB HEMETOLOGY METHOD 03/27/2024 4:50 PM [facility] Basophils Relative 1.1 % LAB HEMETOLOGY METHOD 03/27/2024 4:50 PM [facility] Immature Granulocytes Relative 0.3 % LAB HEMETOLOGY METHOD 03/27/2024 4:50 PM [facility] Neutrophils Absolute 1.58 1.50 - 7.00 K/mcL LAB HEMETOLOGY METHOD 03/27/2024 4:50 PM [facility] Lymphocytes Absolute 1.35 1.00 - 5.00 K/mcL LAB HEMETOLOGY METHOD 03/27/2024 4:50 PM [facility] Monocytes Absolute 0.49 0.20 - 1.00 K/mcL LAB HEMETOLOGY METHOD 03/27/2024 4:50 PM [facility] Eosinophils Absolute 0.25 0.00 - 0.50 K/mcL LAB HEMETOLOGY METHOD 03/27/2024 4:50 PM [facility] Basophils Absolute 0.04 0.00 - 0.20 K/mcL LAB HEMETOLOGY METHOD 03/27/2024 4:50 PM [facility] Immature Granulocytes Absolute 0.01 0.00 - 0.03 K/mcL LAB HEMETOLOGY METHOD 03/27/2024 4:50 PM EST [facility] Blood Venous blood specimen / Unknown Venipuncture / Unknown 03/27/2024 2:47 PM EST 03/27/2024 4:40 PM EST Kristi Contreras MD LAB BLOOD ORDERABLES Final R esult [facility] [address] [place] [address], * Erythropoietin (03/27/2024 2:47 PM EST) Erythropoietin 13.2 2.6 - 18.5 mIU/mL 04/01/2024 8:55 PM EST [facility] Comment: Test performed at [facility], [address] , [place], [place] ??[address] ? [phone] Mary Frost MD, PhD - Airplane Electrical Repairer Blood Venous blood specimen / Unknown Venipuncture / Unknown 03/27/2024 2:47 PM EST 03/27/2024 4:39 PM EST Kristi Contreras MD LAB BLOOD ORDERABLES Final R esult [facility] [address] [place] [address] * Reticulocyte count (03/27/2024 2:47 PM EST) Retic Ct Abs 0.050 0.030 - 0.090 M/mcL LAB HEMETOLOGY METHOD 03/27/2024 4:50 PM EST [facility] Retic Ct Pct 1.6 0.7 - 1.7 % LAB HEMETOLOGY METHOD 03/27/2024 4:50 PM EST [facility] Immature Retic Fract 13.6 2.3 - 15.9 % LAB HEMETOLOGY METHOD 03/27/2024 4:50 PM EST [facility] Reticulocyte Hemoglobin 34.6 >29.0 pcg LAB HEMETOLOGY METHOD 03/27/2024 4:50 PM EST [facility] Blood Venous blood specimen / Unknown Venipuncture / Unknown 03/27/2024 2:47 PM EST 03/27/2024 4:40 PM EST Kristi Contreras MD LAB BLOOD ORDERABLES Final R esult Performing Organization Address City/[facility]/ZIP Co de Phone Number [facility] [address] [place] [address], [place] [phone] * (ABNORMAL) Immunoglobulins IgG, IgA, IgM (03/27/2024 2:47 PM EST) Total IgG 1,580 549 - 1,584 mg/dL LAB CHEMISTRY METHOD 03/27/2024 5:13 PM EST [facility] IgA 38(L) 61 - 348 mg/dL LAB CHEMISTRY METHOD 03/27/2024 5:13 PM EST [facility] IgM 38 23 - 259 mg/dL LAB CHEMISTRY METHOD 03/27/2024 5:13 PM EST [facility] Blood Venous blood specimen / Unknown Venipuncture / Unknown 03/27/2024 2:47 PM EST 03/27/2024 4:39 PM EST Kristi Contreras MD LAB BLOOD ORDERABLES Final R esult Performing Organization Address City/[facility]/ZIP Co de Phone Number [facility] [address] [place] [address], [place] [phone] * Lactate dehydrogenase (03/27/2024 2:47 PM EST) LDH 177 120 - 246 unit/L LAB CHEMISTRY METHOD 03/27/2024 5:02 PM EST [facility] Blood Venous blood specimen / Unknown Venipuncture / Unknown 03/27/2024 2:47 PM EST 03/27/2024 4:39 PM EST Kristi Contreras MD LAB BLOOD ORDERABLES Final R esult Performing Organization Address City/[facility]/ZIP Co de Phone Number [facility] [address] [place] [address], [place] [phone] * (ABNORMAL) Folate (03/27/2024 2:47 PM EST) Pathologist [facility] Folate >20.0(H) 2.8 - 17.0 ng/ml LAB CHEMISTRY METHOD 03/27/2024 5:13 PM EST [facility] Blood Venous blood specimen / Unknown Venipuncture / Unknown 03/27/2024 2:47 PM EST 03/27/2024 4:39 PM EST Kristi Contreras MD LAB BLOOD ORDERABLES Final R esult Performing Organization Address City/[facility]/ZIP Co de Phone Number [facility] [address] [place] [address], [place] [phone] * (ABNORMAL) Beta 2 microglobulin, serum (03/27/2024 2:47 PM EST) [facility] Beta-2 Microglobulin 2.2(H) 0.7 - 1.8 mg/L LAB CHEMISTRY METHOD 03/27/2024 5:13 PM EST [facility] Blood Venous blood specimen / Unknown Venipuncture / Unknown 03/27/2024 2:47 PM EST 03/27/2024 4:39 PM EST Kristi Contreras MD LAB BLOOD ORDERABLES Final R esult Performing Organization Address City/[facility]/ZIP Co de Phone Number [facility] [address] [place] [address], [place] [phone] * (ABNORMAL) Comprehensive metabolic panel (03/27/2024 2:47 PM EST) Sodium 131(L) 133 - 145 mmol/L LAB CHEMISTRY METHOD 03/27/2024 5:13 PM [facility] Potassium 4.5 3.5 - 5.5 mmol/L LAB CHEMISTRY METHOD 03/27/2024 5:13 PM [facility] Chloride 100 96 - 110 mmol/L LAB CHEMISTRY METHOD 03/27/2024 5:13 PM [facility] CO2 27 21 - 32 mmol/L LAB CHEMISTRY METHOD 03/27/2024 5:13 PM [facility] Anion Gap 4 3 - 11 LAB CHEMISTRY METHOD 03/27/2024 5:13 PM [facility] Glucose 93 70 - 100 mg/dL LAB CHEMISTRY METHOD 03/27/2024 5:13 PM [facility] BUN 14 5 - 25 mg/dL LAB CHEMISTRY METHOD 03/27/2024 5:13 PM [facility] Creatinine 0.75 0.50 - 1.10 mg/dL LAB CHEMISTRY METHOD 03/27/2024 5:13 PM [facility] eGFR 80 >=60 mL/min/1. 73m2 LAB CHEMISTRY METHOD 03/27/2024 5:13 PM [facility] Comment:Calculation based on the??Chronic Kidney Disease Epidemiology Collaboration (CKD-EPI) equation refit??without adjustment for race. BUN/Creatinine Ratio 18.7 LAB CHEMISTRY METHOD 03/27/2024 5:13 PM [facility] Calcium 9.7 8.5 - 10.5 mg/dL LAB CHEMISTRY METHOD 03/27/2024 5:13 PM [facility] AST (SGOT) 22 10 - 42 unit/L LAB CHEMISTRY METHOD 03/27/2024 5:13 PM [facility] ALT (SGPT) 22 10 - 60 unit/L LAB CHEMISTRY METHOD 03/27/2024 5:13 PM EST [facility] Alkaline Phosphatase 82 42 - 121 unit/L LAB CHEMISTRY METHOD 03/27/2024 5:13 PM EST [facility] Total Protein 7.1 6.0 - 8.0 g/dL LAB CHEMISTRY METHOD 03/27/2024 5:13 PM EST [facility] Albumin 3.7 3.2 - 5.0 g/dL LAB CHEMISTRY METHOD 03/27/2024 5:13 PM [facility] Total Bilirubin 0.4 0.0 - 1.4 mg/dL LAB CHEMISTRY METHOD 03/27/2024 5:13 PM EST [facility] Blood Venous blood specimen / Unknown Venipuncture / Unknown 03/27/2024 2:47 PM EST 03/27/2024 4:39 PM EST Kristi Contreras MD LAB BLOOD ORDERABLES Final R esult [facility] [address] [place] [address], [place] [phone] * (ABNORMAL) Lipid panel (08/16/2021) LDL/HDL Ratio 3 0 - 4 Triglycerides 203(A) 0 - 150 mg/dL Cholesterol 175 0 - 200 mg/dL HDL 71 >=40 mg/dL LDL Cholesterol 64 0 - 100 mg/dL Blood Venous blood specimen / Unknown [facility] Provider LAB BLOOD ORDERABLES Genia l Result * DXA BONE DENSITY STUDY 1+ SITS [...] 6.9%. IMPRESSION: Normal by WHO criteria. The [facility] Department of Internal Medicine recommends using [...] alternative screening schedule based on tara Chirinos., [facility] March 17, 2011 for patients with [...] 6.9%. IMPRESSION: Normal by WHO criteria. The [facility] Department of Internal Medicine recommendsusing National [...] alternative screening schedule based on tara Chirinos., [facility] for patients with osteopenia (based on hip BMD T-score) is as follows: * advanced osteopenia (T scores -2.00 to -2.49), BMD testing every year * moderate osteopenia (T scores -1.50 to -1.99), BMD testing every 5years mild osteopenia or normal BMD (T scores -1.50 and higher), BMD testingevery 15 years Nita Perkins MD IM DXA PROCEDURES Genia bernal Result from Last 3 Months or Most Recently Relevant to Health Maintenance Insurance MEDICARE MEDICAID - [place] Care Teams Gravedigger Relationship Specialty Start Date End Date Ayesha Marroquin PA [address] [place] [id number] PCP - General 12/29/22
--- OUTSIDE RECORDS SUMMARY | 2024-05-29 18:15 | XMS_ITS | Clinical Summary ---
Author Organization [facility] Address [address] [address] Care Team Providers Care Operations Plant Attendant Name Role Phone Ayesha Marroquin PA-C Primary [...] Due Date Last Done Comments Influenza Vaccine (Season Ended) 2024 11/18/2021, 11/30/2020, 12/13/2019, Additional history exists Pneumococcal Vaccine: 65+ Years Completed 12/23/2015, 11/26/2010 Hepatitis B Vaccine Aged Out No longe r eligible based on patient's age to complete this topic Insurance MEDICARE MEDICAID [place] Care Teams Operations Plant Attendant Relationship Specialty Start Date End Date Ayesha Marroquin PA-C [address] [place] [id number] PCP - General Physician Director Workers Compensation 08/23/23
--- OUTSIDE RECORDS SUMMARY | 2024-05-29 18:15 | XMS_ITS | Clinical Summary ---
Author Organization [facility] Address [address] [place] [address] Care Team Providers Care Web Analytics Developer Name Role Phone Maricarmen Thomas MD Primary [...] age to complete this topic Care Teams Web Analytics Developer Relationship Specialty Start Date End Date Maricarmen Thomas MD PCP - General Internal Medicine 07/17/18
[2024-05-29 18:25] LABS: Appearance Urine Clear; Color Urine Yellow; Glucose Urine UA Negative (Negative); Leukocyte Esterase Urine Negative (Negative); Nitrite Urine Negative (Negative); Specific Gravity - Urine 1.015 (1.005-1.025); Urine Blood Negative (Negative); Urine Ketones Negative (Negative); Urine Protein Negative (Neg-Trace)
== END 2024-05-29 18:09 | disposition home or self-care (01) ==
LOC: HO.LNP 18:08
PROVIDERS: Visit Provider Physician Assistant
DX: R35.0 Frequency of micturition (principal)
CPT/HCPCS: 81003

== ENCOUNTER 2024-06-18 12:06 | Outpatient (REF) | payer MEDICARE, MEDICAID, SELFPAY ==
[2024-06-18 14:14] LABS: MANUAL DIFF FLAG NO
[2024-06-18 14:25] LABS: Basophils Percent Auto 0.9 % (0-2); Eosinophils Absolute Auto 0.2 X10*3/uL (0.0-0.4); Eosinophils Percent Auto 5.2 % (0-4); Hematocrit 35.3 % (37.0-47.0); Hemoglobin 11.8 g/dl (12.0-16.0); Imm Gran Abs Auto 0.01 X10*3/uL (0.00-0.03); Imm Gran Pct Auto 0.2 % (0.0-0.4); Lymphocytes Absolute Auto 1.3 X10*3/uL (1.2-4.9); Lymphocytes Percent Auto 30.4 % (20-40); Mean Corpuscular HGB Conc 33.4 g/dl (31.0-35.0); Mean Corpuscular Hemoglobin 31.2 pg (27.0-33.0); Mean Corpuscular Volume 93.4 fL (80.0-98.0); Mean Platelet Volume 9.8 fL (9.4-12.3); Monocytes Absolute Auto 0.4 X10*3/uL (0.1-1.2); Monocytes Percent Auto 10.1 % (2-11); Neutrophils Absolute Auto 2.3 x10*3/uL (2.0-8.3); Neutrophils Percent Auto 53.2 % (45-73); Platelet Count 226 X10*3/uL (160-400); Red Blood Count 3.78 X10*6/uL (4.20-5.50); Red Cell Distribution Width 12.7 % (11.0-16.0); White Blood Count 4.2 X10*3/uL (4.8-10.8)
--- OUTSIDE RECORDS SUMMARY | 2024-06-18 14:28 | XMS_ITS | Encounter Summary ---
Author Organization [facility] Address [address] [place] [address] Care Team Providers Care Intelligence Director Name Role Phone Geoffrey Lynn MD Unavailable Nita Gutierrez NP Unavailable Ayesha Marroquin PA-C Primary Care Provider Unavail able Reason for Visit * Reason Comments E-prescribe Rx Request Encounter Details Date Type Department Care Team Description 04/03/2023 Refill Gastroenterology - [place] [address] [phone] Michel Higuera PA-C [address] [address] E-prescribe Rx Request Social History Tobacco Use Types Packs/Day Years Used Date Smoking Tobacco: Former Cigarettes 0.2 1 04/17/1980 - 02/27/1997 Smokeless Tobacco: Former Comments:quit 1997 1 pk per week Alcohol Use Standard Drinks/Week Comments Yes 0 (1 standard drink = 0.6 oz pure alcohol) nightly glass of anna or wine Sex Assigned at Date Recorded Not on file Job Start Date Occupation Industry Not on file Not on file Not on file documented as of this encounter Miscellaneous Notes * Telephone Encounter - Gricelda Adams M.A. - 04/03/2023 2:39 PM EST POP 08/24/2021 NOV none documented in this encounter Plan of Treatment Not on file documented as of this encounter Visit Diagnoses Not on filedocumented in this encounter Care Teams Intelligence Director Relationship Specialty Start Date End Date Ayesha Marroquin PA-C PCP - General Internal Medicine 12/29/22 Geoffrey Lynn MD Specialist Cardiovascular Disease 10/20/20 Nita Gutierrez NP Cardiology 12/28/22 documented as of this encounter
--- OUTSIDE RECORDS SUMMARY | 2024-06-18 14:28 | XMS_ITS | Encounter Summary ---
Author Organization [facility] Address [address] [place] [address] Care Team Providers Care Aircrewman Name Role Phone Maricarmen Prescott MD Primary Care Provider Unava ilGeoffrey Hall MD Unavailable Beatriz Talbot NP Unavailable Unavailab Beti Patrick MD Primary Care Provider [phone] Johan Griffin Primary Care Provider [phone] Nita Gutierrez NP Unavailable [phone] Ayesha Marroquin PA-C Primary Care Provider Unavail able Encounter Details Date Type Department Care Team Description 04/23/2013 Security Rep Report Medical Records [address] [place] [address] Shraddha Naidu MD [address] [place] [address] [address] [place] [address] Social History Tobacco Use Types Packs/Day Years Used Date Smoking Tobacco: Former Smokeless Tobacco: Never Comments:quit 1999 Alcohol Use Standard Drinks/Week Comments Yes 0 (1 standard drink = 0.6 oz pur e alcohol) nightly glass of anna Sex Assigned at Date Recorded Not on file Job Start Date Occupation Industry Not on file Not on file Not on file documented as of this encounter Plan of Treatment Not on file documented as of this encounter Visit Diagnoses Not on filedocumented in this encounter Care Teams Aircrewman Relationship Specialty Start Date End Date Maricarmen Prescott MD PCP - General 02/01/07 09/07/21 Beti Carrion MD [address] [place] [id number] PCP - General Internal Medicine 10/04/21 11/20/22 Johan Griffin [address] [place] [address] PCP - General Internal Medicine 09/08/21 10/03/21 Ayesha Marroquin PA-C [address] [place] [id number] PCP - General Internal Medicine 12/29/22 Geoffrey Lynn MD Specialist Cardiovascular Disease 10/20/20 Beatriz Talbot NP Specialist Cardiology 10/20/20 12/27/22 Nita Gutierrez NP [address] [place] [address] Cardiology 12/28/22 documented as of this encounter
--- OUTSIDE RECORDS SUMMARY | 2024-06-18 14:28 | XMS_ITS | Encounter Summary ---
Author Organization [facility] Address [address] [place] [address] Care Team Providers Care Handle Sander Operator Name Role Phone Geoffrey Lynn MD Unavailable Nita Gutierrez NP Unavailable Ayesha Marroquin PA-C Primary Care Provider Unavail able Reason for Visit * Reason Onset Date Comments Blood Pressure Low 08/21/2023 other 08/21/2023 Admitted to [facility] Encounter Details Date Type Department Care Team Description 08/21/2023 Telephone Cardio PVC POC [address] [facility] [address] [place] [address] Geoffrey Lynn MD [address] [place], [place] [phone] Blood Pressure Low; other (Admitted to [facility] ) Social History Tobacco Use Types Packs/Day Years [...] encounter Miscellaneous Notes * Telephone Encounter - Celia Dinh RN - 09/05/2023 4:11 PM EDT Called pt this Pm and verified dose and medication. States on bottle it states Metoprolol Tartrate 25mg 1/2 pill BID. Is requesting a refill to requested pharmacy [facility] in [place]. Is aware RX sentwith confirmation. Is thankful for the call back. * Telephone Encounter - Cydney Cruz - 09/05/2023 2:23 PM EDT Patient calling back, she states with the change of medication, she needs a new script for metoprolol 25 mg taken 1/2 twice daily for a 90 day supply. Pharmacy confirmed. * Telephone Encounter - Celia Dinh RN - 09/04/2023 2:02 PM EDT Called pt back this AM and made aware of Dr. Lynn response. Is aware to cont medications from hospital [place] and to cont to monitor BP/HR daily and any changes in s/s. Is aware to call the office back with any changes. Is aware to keep f/u apt in October. States she wants to thank each one of us for all the help and advise she has been given. She wantedto thank Dr. Lynn specifically for his prompt attention and advise - she really feels like she is in good hands. * Telephone Encounter - Geoffrey Lynn MD - 09/04/2023 11:25 AM EDT Chart reviewed. Discharge summary reviewed. It seems to me that these medication changes are the appropriate ones. I agree with them. I do not think that she will need a follow-up appointment before November 06. * Telephone Encounter - Celia Dinh RN - 09/04/2023 9:08 AM EDT Hospital DC summary scanned into [employer] for review. Please see below. Called pt this AM. States her SBP has been running 110-130 since being discharged from the hospital. Has no s/s. Denies JOSE E, worsening SOB, PND, orthopnea, CP, lightheadedness/dizziness. Had been DCd on a FR of 1500ml a day but hasbeen sticking to 1,000 ml a day. Weight yesterday was 177. On DC from hospital on 08/28/23 she was 175. She has an appointment with PCP on and has a consult to see a fur clipper. Her cath is scheduled for 10/11/23 and has a f/u apt booked for 11/07/23. Do you want to see her in a HFU before 11/07/23? * Telephone Encounter - Karo Dunne - 09/01/2023 4:55 PM EDT Patient is calling to report that while she was in the hospital ([facility]), the provider discontinued the following medications: Lisinopril 10mg 1 tab 1 time daily, Chlorthalidone 25 mg 1 tab 1 time daily. The provider also reduced the following medication: Metoprolol down to 12.5 mg 2 times daily.She states that the Isosorbide did not change. She would like a call back with recommendations and what Dr. Lynn thinks of her medications being chnaged. Please advise [phone] * Telephone Encounter - Nita Gutierrez NP - 08/22/2023 10:35 AM EDT I had a feeling! I am really glad you convinced her to go! * Telephone Encounter - Becki Herrera - 08/22/2023 8:38 AM EDT ALEXI.... Pt is currently at [facility] and I scanned in her admission note for review. * Telephone Encounter - Jordana Lee - 08/22/2023 8:27 AM EDT SRUTHI Rose called to state that Dr. Lynn did call her last night .And she did go to [facility] andhas been admitted. She is in a room [facility] * Telephone Encounter - Nita Gutierrez NP - 08/21/2023 1:12 PM EDT I called and spoke with the patient. She reports that she has been under a lot of stress lately. Over the weekend she was not feeling well; barely got out of bed on Friday 08/18. She did vomit once on 08/18 and states that she has been trying to stay well-hydrated since; she admits she has not a good water drinker. She does not feel as though she had a stomach bug over the weekend. A bit better yesterday 08/20/2023 but has been feeling dizzy, very tired, had a headache on Monday but is now much better, nauseous, groggy and a bit confused, blurred vision at times. Shortness of breath is at baseline; she denies any chest pain. I discussed with her that several of her symptoms are concerning for potential hyponatremia given the recent start of chlorthalidone versus hypotension alone; she states that she was told her sodium was low by her PCP on most recent labs done at [facility]; unfortunately we do not have these results for review at this time. Her blood pressure currently is 116/93. She has not taken chlorthalidone, isosorbide, or lisinopril yet today. I strongly urged her to be seen in the emergency room for further evaluation; she declined stating that she was too worried about her dog not being taken care of while she was gone. She stated she wanted to go get her labs done; I expressed concern that she was not safe to drive but she stated thatshe would be fine and she would know if she was not at which time she would pull over machine operator and call for help. Once again, I strongly urged her not to drive and to either activate EMS or call somebody to bring her to the hospital. She once again declined but verbalized understanding of the importance of being seen for any new or worsening symptoms, activating EMS and not driving herself.. Discussed case with Dr. Lynn; Dr. Lynn reached out to the patient and urged her to be seen inthe emergency room. She eventually obliged; he reached out to her daughter Lashonda who states she will call the patient and get her to the emergency room for further evaluation. To nursing, please follow-up as appropriate. * Telephone Encounter - Wanda Landeros C.M.A. - 08/21/2023 12:45 PM EDT I spoke with the patient she stated 3 days she has felt head heavy, grogginess, VARGAS, dizziness and blurred vision. Last night BP was 94/52 today she said her systolic was 127 although she is not home and can't remember the diastolic. At last ov 08/07/23 Dr. Lynn added Chlorthalidone 25 mg , added Isosorbide 30 mg and increased Lisinopril to 20 mg. She has not taken any of her BP med's today as she was nervous to. * Telephone Encounter - Cydney Cruz - 08/21/2023 11:27 AM EDT Patient calling, she states over the weekend, she's been feeling strange and has been having low blood pressure. Last night it was at 94/52 and she was feeling strange. Monday08/19/23, patient had vomited and couldn't eat. She was in bed almost all day yesterday and had dizziness, with some groggy eye sight. She states she had a headache over the weekend, but has since went away. She believes this has to do with her recent medication changes and would like to speak to someone before taking any of her medication. She is worried. She will be getting blood work done now at the lab. Please advise. documented in this encounter Plan of Treatment Not on file documented as of this encounter Visit Diagnoses Diagnosis Primary hypertension- Primary Unspecified essential hypertension documented in this encounter Care Teams Handle Sander Operator Relationship Specialty Start Date End Date Ayesha Marroquin PA-C PCP - General Internal Medicine 12/29/22 Geoffrey Lynn MD Specialist Cardiovascular Disease 10/20/20 Nita Gutierrez NP Cardiology 12/28/22 documented as of this encounter
--- OUTSIDE RECORDS SUMMARY | 2024-06-18 14:28 | XMS_ITS | Encounter Summary ---
Author Organization [facility] Address [address] [place] [address] Care Team Providers Care Health Promotion Officer Name Role Phone Geoffrey Lynn MD Unavailable Nita Gutierrez NP Unavailable [phone] Ayesha Marroquin PA-C Primary Care Provider Unavail able Reason for Visit * Reason Onset Date Comments other 08/02/2023 Testing? Encounter Details Date Type Department Care Team Description 08/02/2023 Telephone Cardio PVCA Diag Testing [address] [facility] [address] [place] [id number] Geoffrey Lynn MD [address] [place], [place] [phone] other (Testing? ) Social History Tobacco Use Types Packs/Day [...] encounter Miscellaneous Notes * Telephone Encounter - Becki Herrera - 08/03/2023 11:45 AM EDT FYI.... I called Rose and she has been scheduled to see you 08/07/23 @ 11 AM. Eligibility has been contacted. * Telephone Encounter - Becki Herrera - 08/03/2023 8:59 AM EDT I called and spoke to Rose. Pt would like to make an appointment with Dr. Lynn. 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 Pt underwent an echo 03/30/23. Please refer to 01/30/23 telephone encounter as well as 02/17/23 letter. A Cardiac Cath was discussed. Rose saw her PCP, Katya ELIZONDO yesterday. She informed PCP she's been feeling fatigued and overall low energy. Pt stated she was advised to call Cardiology in this regard. Rose also reports chronic shortness of breath on exertion for about 2 years and stated she can't walk her dog anymore for this reason. SOB is worse when it's hot and humid outside. She denies orthopnea, PND, chest pain/pressure and syncope. Pt reports dizziness is worsening when bending over or turning her head quickly and she uses cane for stability. A couple days ago, she was bending over fixing her garden hose in the heat. Pt reported feeling presyncopal, sat down, and the sensation passedin less than a minute. She has a history of vertigo and continues to use Meclizine PRN. She also reports onset of LLE edema- top of foot and extends to her knee. She stated Dr. Funez, surgeon, is aware and informed LLE swelling may happen after surgery up to year. No edema of RLE. Denies LLE edema currently, but as the day goes on, she develops the edema. Pt get Meals on Wheels, reporting the meals are bland, so she does add some salt. She does read salt labels and tries to be mindful about limiting salt intake. Regarding medications, she has been taking cardiac meds as prescribed, with the exception of Lisinopril. From 01/2023-06/2023, pt was taking Lisinopril 5 mg. She was informed by the pharmacist she is to take Lisinopril 10 mg, so she has been since 07/18/23. She read off her vitals from PCP office yesterday- BP 118/57, HR 63 bpm, and O2 97%. Her PCP started her on Amitriptyline 10 mg daily at bedtime per pt. Pt does not monitor BP/HR at home, but was encouraged to do so 2-3 hrs after taking meds and keep a log. Rose would like to be seen in the office and would like to see if any additional testing can be done at this time. * Telephone Encounter - Judy Eugene - 08/02/2023 4:06 PM EDT Patient called she was told by Dr. Lynn that she would need some kind of test/ procedure done due to a blocked artery, maybe a stent. She does not remember all the details. She has been feeling more tired/ fatigued as of late and thinks this has something to do with it. Please call her back at [phone]. documented in this encounter Plan of Treatment Not on file documented as of this encounter Visit Diagnoses Not on filedocumented in this encounter Care Teams Health Promotion Officer Relationship Specialty Start Date End Date Ayesha Marroquin PA-C PCP - General Internal Medicine 12/29/22 Geoffrey Lynn MD Specialist Cardiovascular Disease 10/20/20 Nita Gutierrez NP Cardiology 12/28/22 documented as of this encounter
--- OUTSIDE RECORDS SUMMARY | 2024-06-18 14:28 | XMS_ITS | Encounter Summary ---
Author Organization [facility] Address [address] [place] [address] Care Team Providers Care Child Care Centre Director Name Role Phone Geoffrey Lynn MD Unavailable Nita Gutierrez NP Unavailable [phone] Ayesha Marroquin PA-C Primary Care Provider Unavail able Encounter Details Date Type Department Care Team Description 10/02/2023 Orders Only Cardio PVC POC [address] [facility] [address] [place] [address] Default, Provider Social History Tobacco Use Types Packs/Day Years [...] on file documented as of this encounter Procedures Procedure Name Priority Date/Time Associated Diagnosis Comments OUTSIDE LAB Routine 09/07/2023 documented in this encounter Results * OUTSIDE LAB (09/07/2023) Provider Default LAB documented in this encounter Visit Diagnoses Not on filedocumented in this encounter Care Teams Child Care Centre Director Relationship Specialty Start Date End Date Ayesha Marroquin PA-C PCP - General Internal Medicine 11/2/23 Geoffrey Lynn MD Specialist Cardiovascular Disease 10/20/20 Nita Gutierrez NP Cardiology 12/28/22 documented as of this encounter
--- OUTSIDE RECORDS SUMMARY | 2024-06-18 14:28 | XMS_ITS | Clinical Summary ---
Author Organization [facility] Address [address] [place] [address] Care Team Providers Care Auto Research Engineer Name Role Phone Geoffrey Lynn MD Unavailable Nita Gutierrez NP Unavailable [phone] Ayesha Marroquin PA-C Primary Care Provider Unavail able Allergies Active Allergy Reactions Severity Noted Date Comments Codeine 12/23/2021 Duloxetine Hcl 08/07/2023 Itchy skin Medications Medication Sig Dispensed Refills Start Date End Date Status Multiple Vitamins-Minerals (CENTRUM SILVER OR) one tablet daily 0 Active Cyanocobalamin (VITAMIN B-12) 500 MCG TABS one tablet daily 0 Active Pyridoxine HCl (VITAMIN B6 OR) Take by mouth. 0 Activ e Diclofenac Sodium 1 % Gel Apply 1 Drop topically 3 times daily. 30 g 1 09/14/2020 Active polyethylene glycol (MiraLax) 17 GM/SCOOP powder One capful (17g) once daily as needed for constipation. 527 g 1 02/16/2021 Active pantoprazole (PROTONIX) 40 MG tabletIndications:G astroparesis Take 1 Tablet by mouth daily. Take in a.m. on empty stomach, wait 30 minutes and then eat and take the rest of your medications 90 Tablet 3 08/20/2021 Active Ventolin HFA 108 (90 Base) MCG/ACT Aero Soln Inhale 2 Puffs into the lungs every 4 hours as needed for Cough, Wheezing or Shortness of Breath. 8.5 g 0 09/03/2021 Active simethicone (Gas-X) 80 MG chewable tablet Take 1 Tablet by mouth every 6 hours as needed for Flatulence. 60 Tablet 11 10/11/2021 Active fluticasone 50 MCG/ACT nasal spray INSTILL 2 SPRAYS INTRANASALLY ONCE DAILY 16 g 0 04/01/2022 Active atorvastatin (LIPITOR) 40 MG tablet Take 1 Tablet by mouth daily. 90 Tablet 1 05/09/2022 Active docusate sodium (COLACE) 100 MG capsule TAKE 1 CAPSULE BY MOUTH TWICE DAILY FOR 10 DAYS NEEDED FOR constipation 60 Capsule 5 12/08/2022 Active BIOTIN OR Take by mouth. 0 Active sertraline (ZOLOFT) 100 MG tablet Take 1 Tablet by mouth daily. Take 1.5 tab 0 Active MECLIZINE HCL OR Take by mouth. 0 Acti ve sucralfate (CARAFATE) 1 g tablet Take 1 tablet by mouth 2 times daily At noon and at bedtime 60 Tablet 11 04/03/2023 Active busPIRone (BUSPAR) 5 MG tablet Take 1 Tablet by mouth 3 times daily. 0 Active BABY ASPIRIN OR Take by mouth daily. 0 Active isosorbide mononitrate (IMDUR) 30 MG 24 hr tablet Take 1 Tablet by mouth daily for 180 days. 30 Tablet 5 08/07/2023 Active lisinopril (PRINIVIL,ZESTRIL) 10 MG tabletIndications:P rimary hypertension Take 1 Tablet by mouth daily for 180 days. 30 Tablet 5 08/21/2023 Active metoprolol (LOPRESSOR) 25 MG tablet TAKE 1/2 tablet (12.5mg) BY MOUTH TWICE DAILY 90 Tablet 3 12/12/2023 Active lorazepam (ATIVAN) 1 MG tablet Take 1 Tablet by mouth every 6 hours as needed. 0 Active Active Problems Problem Noted Date Diastolic dysfunction 12/18/2023 Overview: Grade 2 diastolic dysfunction seen on echocardiogram [...] will continue to readdress this as indicated. Hospital discharge follow-up 11/07/2023 Last Assessment & Plan: Hospital records reviewed and medications reconciled. Coronary artery disease 11/07/2023 Last Assessment & Plan: Mild nonobstructive coronary [...] rest, or if they were to faint. History of cardiac catheterization 10/30 Overview: Done on 10/11/2023 at [facility] w KM indications:Abnormal Stress Treadmill Study COPD (chronic obstructive pulmonary dise ase) 12/29/2022 Dyspnea on exertion 12/29/2022 Activity intolerance 12/29/2022 Mild anemia 12/29/2022 Last Assessment & Plan: Mild, and I do not believe that this is contributing to her symptoms. Her PCP is following her for this. Hyponatremia 12/29/2022 Last Assessment & Plan: Patient is currently being followed by her PCP for this. Mitral regurgitation 12/29/2022 Last Assessment & Plan: On most recent echocardiogram 03/30/2023; we will continue to monitor with serial imaging. 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 Garcia on 01/29/2012. IMO update Osteoarthrosis, unspecified whether generalized or localized, unspecified site 04/23/2012 Overview: Noted from dictation of Dr. Radha Prescott on 11/25/2011. Pt has bilateral knee replacements. IMO update Primary hypertension 07/22/2011 Last Assessment & Plan: Sugars well-controlled on current medical therapy; continue metoprolol, lisinopril, and isosorbide. Most recent metabolic panel stable on 10/11/2023. Tinnitus 07/22/2011 Ventral hernia 09/17/2010 Gastroparesis 12/13/2009 Overview: Dr. Grossman; +gastric emptying study Constipation 12/13/2009 Insomnia 08/11/2009 Depression 08/11/2009 Hyperlipemia 05/25/2009 Last Assessment & Plan: Most recent lipid panel available for review from 08/16/2021 shows LDL of 64; this is historically managed by her PCP. LDL goal is less than 70 given her new diagnosis of coronary artery disease. Continue atorvastatin 40 mg once daily. Bloating Nausea Immunizations Name Administration Dates Next Due COVID-19 (Pfizer) Pt Reported 05/29/2020, 021 Influenza (> 6 Months) 12/20/2013,2012,11/25/2011,11/26,01/06/2010 Influenza Vaccine-quadrivale nt 4 Years Plus 01/24/2017 Influenza vaccine high dose age 65 and over 11/18/2021,11/30/2020,12/13/2019,11/09,12/29/2017,11/14/2014 Pneumoccoccal(Adult) Polysac charide PPSV23 11/26/2010 Pneumococcal Conjugate PCV-13 12/23/2015 TD (STATE SUPPLIED FOR ADULT S AND CHILDREN) 12/22/2010 Family History Medical History Relation Name Comments CAD Brother CA Prostate Father CAD Father CAD Mother Diabetes Mother CA Breast Negative Hx CA Colon Negative Hx CA Ovarian Negative Hx Relation Name Status Comments Brother (Age 45) [place] Daughter Alive 1970 healthy Father (Age 80) ? heart va lve problems, prostate ca, chf Mother (Age 81) lipids, di abetes, double bypass, [place]; CHF Sister 1 Alive thyroid Sister 2 Alive unknown Son Alive 1966 depression , drug abuse, suicide attempts; jatinder head injury Social History Tobacco Use Types Packs/Day Years Used Date Smoking Tobacco: Former Cigarettes 0.2 1 04/17/1980 - 02/27/1997 Smokeless Tobacco: Former Tobacco Cessation:Counseling Given: Not Answered Comments:quit 1997 1 pk per week Alcohol [...] Blood Pressure 120/60 12/18/2023 1:13 PM EDT Pulse 71 12/18/2023 1:13 PM EDT Temperature 36.4 ??C (97.6 ??F) 05/09/2022 3:12 PM ED T Respiratory Rate 12 05/09/2022 3:12 PM EDT Oxygen Saturation 97% 12/18/2023 1:13 PM EDT Inhaled Oxygen Concentration - - Weight 84.4 kg (186 lb) 12/18/2023 1:13 PM EDT Height 162.6 cm (5' 4 ) 12/18/2023 1:13 PM EDT Body Mass Index 31.93 12/18/2023 1:13 PM EDT Plan of Treatment Health Maintenance Due Date Last Done Comments SHINGLES VACCINE (1 of 2) 1993 BONE DENSITY SCREENING 05/03/2020 9, 12/31/2014, 06/26/2009 MAMMOGRAM 09/10/2020 09/11/2019, 05/28, 05/12/2017, Additional history exists DEPRESSION SCREEN 08/20/2022 08/20/2021, (Exception), 01/09/2015, Additional history exists FALL RISK ASSESSMENT 08/20/2022 08/20/2021, 12/13/2019, 07/13/2018, Additional history exists Covid-19 Vaccine (2022- 4 season) 2023 03/04/2021, 05/29/2020, 05/08/2020 BMI CHECK/ADVISE 02/28/2024 05/09/2022, , 08/14/2020, Additional history exists INFLUENZA (Season Ended) 2024 022, 11/30/2020, 12/13/2019, Additional history exists CHOLESTEROL SCREENING 08/16/2026 08/16/2021 , 06/19/2020, 01/24/2017, Additional history exists DTAP/TDAP/TD (2 - Td or Tdap) 09/03/2030 09/03/2020, 12/22/2010 PNEUMOCOCCAL VACCINE Completed 12/23/2015, 11/27/19 11 Care Teams Auto Research Engineer Relationship Specialty Start Date End Date Ayesha Marroquin PA-C PCP - General Internal Medicine 12/29/22 Geoffrey Lynn MD Specialist Cardiovascular Disease 10/20/20 Nita Gutierrez NP Cardiology 12/28/22
--- OUTSIDE RECORDS SUMMARY | 2024-06-18 14:28 | XMS_ITS | Encounter Summary ---
Author Organization [facility] Address [address] [place] [address] Care Team Providers Care Potato Chip Sacking Machine Operator Name Role Phone Geoffrey Lynn MD Unavailable Nita Gutierrez NP Unavailable [phone] Ayesha Marroquin PA-C Primary Care Provider Unavail able Encounter Details Date Type Department Care Team Description 04/07/2023 Telephone Cardio PVC POC [address] [facility] [address] [place] [address] Geoffrey Lynn MD [address] [place] [id number] Social History Tobacco Use Types Packs/Day Years [...] on filedocumented in this encounter Care Teams Potato Chip Sacking Machine Operator Relationship Specialty Start Date End Date Ayesha Marroquin PA-C PCP - General Internal Medicine 12/29/22 Geoffrey Lynn MD Specialist Cardiovascular Disease 10/20/20 Nita Gutierrez NP Cardiology 12/28/22 documented as of this encounter
--- OUTSIDE RECORDS SUMMARY | 2024-06-18 14:28 | XMS_ITS | Encounter Summary ---
[facility] Address [address] [place] [address] Care Team Providers Care Rechecker Name Role Phone Maricarmen Prescott MD Primary Care Provider Unava Geoffrey Guardado MD Unavailable Beatriz Talbot NP Unavailable Unavailab Beti Patrick MD Primary Care Provider [phone] Johan Griffin Primary Care Provider [phone] Nita Gutierrze NP Unavailable [phone] Ayesha Marroquin PA-C Primary Care Provider Unavail able Encounter Details Date Type Department Care Team Description 12/13/2015 Hospital Medical Records [address] [place] [address] Abstract, Provider Social History Tobacco Use Types Packs/Day [...] on filedocumented in this encounter Care Teams Rechecker Relationship Specialty Start Date End Date Maricarmen Prescott MD PCP - General 02/01/07 09/07/21 Beti Carrion MD [address] [place] [address] PCP - General Internal Medicine 10/04/21 11/20/22 Johan Griffin [address] [place] [address] PCP - General Internal Medicine 09/08/21 10/03/21 Ayesha Marroquin PA-C [address] [place] [address] PCP - General Internal Medicine 12/29/22 Geoffrey Lynn MD Specialist Cardiovascular Disease 10/20/20 Beatriz Talbot NP Specialist Cardiology 10/20/20 12/27/22 Nita Gutierrez NP [address] [place] [address] Cardiology 12/28/22 documented as of this encounter
--- OUTSIDE RECORDS SUMMARY | 2024-06-18 14:28 | XMS_ITS | Encounter Summary ---
Author Organization [facility] Address [address] [place] [address] Care Team Providers Care Environmental Journalist Name Role Phone Geoffrey Lynn MD Unavailable Nita Gutierrez NP Unavailable [phone] Ayesha Marroquin PA-C Primary Care Provider Unavail able Encounter Details Date Type Department Care Team Description 10/11/2023 Hospital Medical Records [address] [place] [address] Social History Tobacco Use Types Packs/Day Years [...] Name Priority Date/Time Associated Diagnosis Comments OUTSIDE EKG Routine 10/11/2023 documented in this encounter Results * OUTSIDE EKG (10/11/2023) Provider Abstract CARDIOLOGY documented in this encounter Visit Diagnoses Not on filedocumented in this encounter Care Teams Environmental Journalist Relationship Specialty Start Date End Date Ayesha Marroquin PA-C PCP - General Internal Medicine 12/29/22 Geoffrey yLnn MD Specialist Cardiovascular Disease 10/20/20 Nita Gutierrez NP Cardiology 12/28/22 documented as of this encounter
--- OUTSIDE RECORDS SUMMARY | 2024-06-18 14:28 | XMS_ITS | Encounter Summary ---
Author Organization [facility] Address [address] [place] [address] Care Team Providers Care Disc Sander Name Role Phone Maricarmen Prescott MD Primary Care Provider Unava Geoffrey Guardado MD Unavailable Beatrzi Talbot TOUR AGENT Unavailable Unavailab Beti Patrick MD Primary Care Provider [phone] Johan Griffin Primary Care Provider [phone] Nita Gutierrez TOUR AGENT Unavailable [phone] Ayesha Marroquin PA-C Primary Care Provider Unavail able Encounter Details Date Type Department Care Team Description 04/29/2013 Release of Information Medical Records [address] [place] [address] Abstract, Provider Social History Tobacco Use Types [...] on filedocumented in this encounter Care Teams Disc Sander Relationship Specialty Start Date End Date Maricarmen Prescott MD PCP - General 02/01/07 09/07/21 Beti Carrion MD [address] [place] [address] PCP - General Internal Medicine 10/04/21 11/20/22 Johan Griffin [address] [place] [address] PCP - General Internal Medicine 09/08/21 10/03/21 Ayesha Marroquin PA-C [address] [place] [address] PCP - General Internal Medicine 12/29/22 Geoffrey Lynn MD Specialist Cardiovascular Disease 10/20/20 Beatriz Talbot NP Specialist Cardiology 10/20/20 12/27/22 Nita Gutierrez NP [address] [place] [address] Cardiology 12/28/22 documented as of this encounter
--- OUTSIDE RECORDS SUMMARY | 2024-06-18 14:28 | XMS_ITS | Encounter Summary ---
[facility] Organization [facility] Address [address] [place] [address] Care Team Providers Care Assembly Line Leader Name Role Phone Maricarmen Prescott MD Primary Care Provider Unava Geoffrey Guardado MD Unavailable Beatriz Talbot NP Unavailable Unavailab Beti Patrick MD Primary Care Provider [phone] Johan Griffin Primary Care Provider [phone] Nita Gutierrez NP Unavailable [phone] Ayesha Marroquin PA-C Primary Care Provider Unavail able Encounter Details Date Type Department Care Team Description 12/13/2015 Hospital Medical Records [address] [place] [address] Abstract, Provider Social History Tobacco Use Types [...] on filedocumented in this encounter Care Teams Assembly Line Leader Relationship Specialty Start Date End Date Maricarmen Prescott MD PCP - General 02/01/07 09/07/21 Beti Carrion MD [address] [place] [address] PCP - General Internal Medicine 10/04/21 11/20/22 Johan Griffin [address] [place] [address] PCP - General Internal Medicine 09/08/21 10/03/21 Ayesha Marroquin PA-C [address] [place] [address] PCP - General Internal Medicine 12/29/22 Geoffrey Lynn MD Specialist Cardiovascular Disease 10/20/20 Beatriz Talbot NP Specialist Cardiology 10/20/20 12/27/22 Nita Gutierrez NP [address] [place] [address] Cardiology 12/28/22 documented as of this encounter
--- OUTSIDE RECORDS SUMMARY | 2024-06-18 14:28 | XMS_ITS | Encounter Summary ---
Author Organization [facility] [employer] [facility] Address [address] [place] [address] Care Team Providers Care Audiology Technician Name Role Phone Geoffrey Lynn MD Unavailable Nita Gutierrez NP Unavailable [phone] Ayesha Marroquin PA-C Primary Care Provider Unavail able Encounter Details Date Type Department Care Team Description 02/06/2023 Telephone Cardio [facility] [address] [place] [address] Geoffrey Lynn MD [address] [place] [address] [id number] Social History Tobacco Use Types Packs/Day Years [...] encounter Miscellaneous Notes * Telephone Encounter - Debbie Jacobson - 02/06/2023 2:08 PM EST Spoke w/ pt made aware and verbalized understanding of message given said what a relief. * Telephone Encounter - Geoffrey Lynn MD - 02/06/2023 2:01 PM EST Please call Rose over the daughter. Let them know I communicated with Dr. Funez. He indicates that this should be a quick and simple operation. Maybe 20 minutes. documented in this encounter Plan of Treatment Not on file documented as of this encounter Visit Diagnoses Not on filedocumented in this encounter Care Teams Audiology Technician Relationship Specialty Start Date End Date Ayesha Marroquin PA-C PCP - General Internal Medicine 12/29/22 Geoffrey Lynn MD Specialist Cardiovascular Disease 10/20/20 Nita Gutierrez NP Cardiology 12/28/22 documented as of this encounter
--- OUTSIDE RECORDS SUMMARY | 2024-06-18 14:29 | XMS_ITS | Encounter Summary ---
Author Organization [facility] Address [address] [place] [address] Care Team Providers Care Product Marketer Name Role Phone Maricarmen Prescott MD Primary Care Provider Unava Geoffrey Guardado MD Unavailable Beatriz Talbot COLLAR BAND CREASER Unavailable Unavailab Beti Patrick MD Primary Care Provider [phone] Johan Griffin Primary Care Provider [phone] Nita Gutierrez COLLAR BAND CREASER Unavailable [phone] Ayesha Marroquin PA-C Primary Care Provider Unavail able Encounter Details Date Type Department Care Team Description 04/09/2015 Environmental Science Professor Report Medical Records [address] [place] [id number] [facility] Social History Tobacco Use Types Packs/Day Years Used Date Smoking Tobacco: Former Smokeless Tobacco: Never Comments:quit 1997 Alcohol Use Standard Drinks/Week Comments Yes 0 [...] on filedocumented in this encounter Care Teams Product Marketer Relationship Specialty Start Date End Date Maricarmen Prescott MD PCP - General 02/01/07 09/07/21 Beti Carrion MD [address] [place] [address] PCP - General Internal Medicine 10/04/21 11/20/22 Johan Griffin [address] [place] [address] PCP - General Internal Medicine 09/08/21 10/03/21 Ayesha Marroquin PA-C [address] [place] [address] PCP - General Internal Medicine 12/29/22 Geoffrey Lynn MD Specialist Cardiovascular Disease 10/20/20 Beatriz Talbot NP Specialist Cardiology 10/20/20 12/27/22 Nita Gutierrez NP [address] [place] [address] Cardiology 12/28/22 documented as of this encounter
--- OUTSIDE RECORDS SUMMARY | 2024-06-18 14:29 | XMS_ITS | Encounter Summary ---
Author Organization [facility] Address [address] [place] [address] Care Team Providers Care Factory Hand Name Role Phone Maricarmen Prescott MD Primary Care Provider Unava ilGeoffrey Hall MD Unavailable Beatriz Talbot NP Unavailable Unavailab Beti Patrick MD Primary Care Provider [phone] Johan Griffin Primary Care Provider Nita Gutierrez NP Unavailable [phone] Ayesha Marroquin PA-C Primary Care Provider Unavail able Encounter Details Date Type Department Care Team Description 08/24/2020 Telephone General Surgery - [place] [address] [facility] [address] [place] [address] Enrique Billy DPM [address] [facility] [address] [place], [place] [phone] Social History Tobacco Use Types Packs/Day Years [...] file Not on file Not on file COVID-19 Exposure Response Date Recorded In the last month, have you been in contact with someone who was confirmed or suspected to have Coronavirus / COVID-19? No / Unsure 08/24/2020 3:58 PM EDT documented as of this encounter Plan of Treatment Not on file documented as of this encounter Visit Diagnoses Not on filedocumented in this encounter Care Teams Factory Hand Relationship Specialty Start Date End Date Maricarmen Prescott MD PCP - General 02/01/07 09/07/21 Beti Carrion MD [address] [place] [address] PCP - General Internal Medicine 10/04/21 11/20/22 Johan Griffin [address] [place] [address] PCP - General Internal Medicine 09/08/21 10/03/21 Ayesha Marroquin PA-C [address] [place] [address] PCP - General Internal Medicine 12/29/22 Geoffrey Lynn MD Specialist Cardiovascular Disease 10/20/20 Beatriz Talbot NP Specialist Cardiology 10/20/20 12/27/22 Nita Gutierrez NP [address] [place] [address] Cardiology 12/28/22 documented as of this encounter
--- OUTSIDE RECORDS SUMMARY | 2024-06-18 14:29 | XMS_ITS | Encounter Summary ---
[facility] Address [address] [place] [address] Care Team Providers Care Supply Analyst Name Role Phone Maricarmen Prescott MD Primary Care Provider Unava Geoffrey Guardado MD Unavailable Beatriz Talbot NP Unavailable Unavailab Beti Patrick MD Primary Care Provider [phone] Johan Griffin Primary Care Provider [phone] Nita Gutierrez NP Unavailable [phone] Ayesha Marroquin PA-C Primary Care Provider Unavail able Encounter Details Date Type Department Care Team Description 02/09/2016 Business Doc Medical Records [address] [place] [address] Abstract, Provider Social History Tobacco Use Types Packs/Day Years Used Date Smoking Tobacco: Former Cigarettes 1 04/17/1980 - 02/27/1997 Smokeless Tobacco: Never Comments:quit 1997 1 pk per week Alcohol [...] on filedocumented in this encounter Care Teams Supply Analyst Relationship Specialty Start Date End Date Maricarmen Prescott MD PCP - General 02/01/07 09/07/21 Beti Carrion MD [address] [place] [address] PCP - General Internal Medicine 10/04/21 11/20/22 Johan Griffin [address] [place] [address] PCP - General Internal Medicine 09/08/21 10/03/21 Ayesha Marroquin PA-C [address] [place] [address] PCP - General Internal Medicine 12/29/22 Geoffrey Lynn MD Specialist Cardiovascular Disease 10/20/20 Beatriz Talbot NP Specialist Cardiology 10/20/20 12/27/22 Nita Gutierrez NP [address] [place] [address] Cardiology 12/28/22 documented as of this encounter
--- OUTSIDE RECORDS SUMMARY | 2024-06-18 14:29 | XMS_ITS | Clinical Summary ---
Author Organization [address] [place] [address] [place] [phone] Phone Care Team Providers Care Implementation Project Coordinator Name Role Phone Ayesha Marroquin Primary Care Provider [phone] Allergies Active Allergy Reactions Criticality Noted Date [...] faint. Activity intolerance 12/29/2022 COPD (chronic obstructive pu lmonary disease) (CMS/[facility] V24, CMS/[facility] V28) 12/29/2022 Dyspnea on exertion 12/29/2022 Hyponatremia 12/29/2022 Overview [...] Department Care Team Description 04/18/2024 Telephone [facility] [address] [place] [address] Ayesha Marroquin PA Medical Records 03/27/2024 1:30 PM EST Office Visit [facility] Hematology Oncology [address] [place] [address] Kristi Contreras MD IgG monoclonal [...] 06/05; 05/30; fingeroth OTHER SURGICAL HISTORY PROCEDURE: AL CHOLECYSTECTOMY W/EXPLORATION COMMON DUCT FOOT SURGERY PROCEDURE: HISTORICAL FOOT SURGERY; COMMENT: left foot pin placed BUNIONECTOMY PROCEDURE: BUNION SURGERY, SIMPLE REMOVAL; COMMENT: bilateral OTHER SURGICAL HISTORY PROCEDURE: AL COLECTOMY PRTL W/COLOST/ILEOST & MUCOFISTULA; COMMENT: diverticulitis CERVICAL BIOPSY W/ LOOP ELEC TRODE EXCISION PROCEDURE: HISTORICAL CONE BIOPSY COLONOSCOPY 2003 PROCEDURE: OUTSIDE COLONOSCOPY; COMMENT: tics OTHER SURGICAL HISTORY [facility] [facility] PROCEDURE: COLON CA SCRN NOT HI RSK IND; COMMENT: tics and hemorrhoids; would not repeat ESOPHAGOGASTRODUODENOSCOPY 11/[facility]/[address] [facility] PROCEDURE: AL EGD TRANSORAL BIOPSY SINGLE/MULTIPLE; COMMENT: gastric erythema; nl appearing esophagus, dilated empirically to 20 mm; reactive antral changes w/o H. pylori; nl esoph. bxys SHOULDER SURGERY 01/08/2019 Right PROCEDURE: HISTORICAL SHOULDER SURGERY; COMMENT: arthroplasty; Dr. Clay ESOPHAGOGASTRODUODENOSCOPY 02/18/2021 PROCEDURE: AL EGD TRANSORAL BIOPSY SINGLE/MULTIPLE; COMMENT: retained bile. [...] (gastroesophageal reflux disease); COMMENT: Dr. Grossman Osteomyelitis ([facility] V24, [facility] V28) 2001 DX:Osteomyelitis ([facility]); COMM ENT: spine Other specified personal his tory presenting [...] Relation Name Status Comments Brother (Age 45) [place] Daughter Alive 1970 healthy Father (Age 80) ? heart va lve problems, prostate ca, chf Mother (Age 81) lipids, di abetes, double bypass, [place]; CHF Sister 1 Alive thyroid Sister 2 [...] Care Team (Late st Contact Info) Description 06/20/2024 11:45 AM EDT Office Visit [facility] Hematology Oncology [address] [place] [phone] Kristi Contreras MD [address] [place] [address] Health Maintenance Due Date Last Done Comments Hepatitis A Vaccines (1 of 2 - Risk 2-dose series) 1962 Zoster Vaccines (1 of 2) 1993 RSV [...] age to complete this topic Meningococcal B Vaccine Aged Out No l onger eligible based on patient's age to complete [...] Relevant to Health Maintenance Results * (ABNORMAL) [place]-lambda free light chains, quantitative (03/27/2024 2:47 PM EST) [place] Free Light Chain 1.65 0.33 - 1.94 mg/dL 04/02/2024 7:11 AM EST [facility] Lambda Free Light Chain 0.97 0.57 - 2.63 mg/dL 04/02/2024 7:11 AM EST [facility] [place]/Lambda FLC Ratio 1.70(H) 0.26 - 1.65 04/02/2024 7:11 AM EST [facility] Comment: Test performed at [facility], [address], [place], [place] ??[address] ? [phone] Mary Frost MD, PhD - Wood Science Professor Blood Venous blood specimen / Unknown Venipuncture / Unknown 03/27/2024 2:47 PM EST 03/27/2024 4:39 PM EST us Kristi Contreras MD LAB BLOOD ORDERABLES Final R esult JOEY [address] [place] [address] * (ABNORMAL) CBC auto differential (03/27/2024 2:47 PM EST) [facility] Signature WBC 3.7(L) 4.8 - 10.8 K/mcL LAB HEMETOLOGY METHOD 03/27/2024 4:50 PM EST [facility] RBC 3.40(L) 3.80 - 4.80 M/mcL LAB HEMETOLOGY METHOD 03/27/2024 4:50 PM [facility] Hemoglobin 10.7(L) 11.5 - 16.0 g/dL LAB HEMETOLOGY METHOD 03/27/2024 4:50 PM [facility] Hematocrit 32.7(L) 35.0 - 47.0 % LAB HEMETOLOGY METHOD 03/27/2024 4:50 PM EST [facility] MCV 96.2 79.0 - 98.0 FL LAB HEMETOLOGY METHOD 03/27/2024 4:50 PM [facility] MCH 31.5 27.0 - 32.0 pcg LAB HEMETOLOGY METHOD 03/27/2024 4:50 PM [facility] MCHC 32.7 32.0 - 37.0 g/dL LAB HEMETOLOGY METHOD 03/27/2024 4:50 PM EST [facility] RDW 13.1 11.0 - 15.0 % LAB HEMETOLOGY METHOD 03/27/2024 4:50 PM [facility] Platelets 225 130 - 400 K/mcL LAB HEMETOLOGY METHOD 03/27/2024 4:50 PM [facility] MPV 9.9 7.0 - 11.0 FL LAB HEMETOLOGY METHOD 03/27/2024 4:50 PM [facility] NRBC 0.0 <1.0 % LAB HEMETOLOGY METHOD 03/27/2024 4:50 PM [facility] NRBC Absolute 0.00 <0.10 K/mcL LAB HEMETOLOGY METHOD 03/27/2024 4:50 PM [facility] Neutrophils Relative 42.4 % LAB HEMETOLOGY METHOD 03/27/2024 4:50 PM [facility] Lymphocytes Relative 36.3 % LAB HEMETOLOGY METHOD 03/27/2024 4:50 PM [facility] Monocytes Relative 13.2 % LAB HEMETOLOGY METHOD 03/27/2024 4:50 PM [facility] Eosinophils Relative 6.7 % LAB HEMETOLOGY METHOD 03/27/2024 4:50 PM [facility] Basophils Relative 1.1 % LAB HEMETOLOGY METHOD 03/27/2024 4:50 PM [facility] Immature Granulocytes Relative 0.3 % LAB HEMETOLOGY METHOD 03/27/2024 4:50 PM [facility] Neutrophils Absolute 1.58 1.50 - 7.00 K/mcL LAB HEMETOLOGY METHOD 03/27/2024 4:50 PM [facility] Lymphocytes Absolute 1.35 1.00 - 5.00 K/mcL LAB HEMETOLOGY METHOD 03/27/2024 4:50 PM [facility] Monocytes Absolute 0.49 0.20 - 1.00 K/mcL LAB HEMETOLOGY METHOD 03/27/2024 4:50 PM [facility] Eosinophils Absolute 0.25 0.00 - 0.50 K/mcL LAB HEMETOLOGY METHOD 03/27/2024 4:50 PM [facility] Basophils Absolute 0.04 0.00 - 0.20 K/mcL LAB HEMETOLOGY METHOD 03/27/2024 4:50 PM [facility] Immature Granulocytes Absolute 0.01 0.00 - 0.03 K/mcL LAB HEMETOLOGY METHOD 03/27/2024 4:50 PM EST [facility] Blood Venous blood specimen / Unknown Venipuncture / Unknown 03/27/2024 2:47 PM EST 03/27/2024 4:40 PM EST Kristi Contreras MD LAB BLOOD ORDERABLES Final R esult Performing Organization Address [facility]/ZIP Co de Phone Number [facility] [address] [place] [address], [place] [phone] * Erythropoietin (03/27/2024 2:47 PM EST) Erythropoietin 13.2 2.6 - 18.5 mIU/mL 04/01/2024 8:55 PM EST [facility] Comment: Test performed at [facility], [address] [employer] [place], [place] ??[address] ? [phone] Mary Frost MD, PhD - Wood Science Professor Blood Venous blood specimen / Unknown Venipuncture / Unknown 03/27/2024 2:47 PM EST 03/27/2024 4:39 PM EST Kristi Contreras MD LAB BLOOD ORDERABLES Final R esult Performing Organization Address [facility]/ZIP Co de Phone Number [facility] [address] [employer] [place] [address] * Reticulocyte count (03/27/2024 2:47 PM EST) Retic Ct Abs 0.050 0.030 - 0.090 M/mcL LAB HEMETOLOGY METHOD 03/27/2024 4:50 PM EST [facility] Retic Ct Pct 1.6 0.7 - 1.7 % LAB HEMETOLOGY METHOD 03/27/2024 4:50 PM EST [facility] Immature Retic Fract 13.6 2.3 - 15.9 % LAB HEMETOLOGY METHOD 03/27/2024 4:50 PM EST [facility] Reticulocyte Hemoglobin 34.6 >29.0 pcg LAB HEMETOLOGY METHOD 03/27/2024 4:50 PM EST [facility] Blood Venous blood specimen / Unknown Venipuncture / Unknown 03/27/2024 2:47 PM EST 03/27/2024 4:40 PM EST Kristi Contreras MD LAB BLOOD ORDERABLES Final R esult Performing Organization Address City/[facility]/ZIP Co de Phone Number [facility] [address] [place] [address], [place] [phone] * (ABNORMAL) Immunoglobulins IgG, IgA, IgM (03/27/2024 2:47 PM EST) Total IgG 1,580 549 - 1,584 mg/dL LAB CHEMISTRY METHOD 03/27/2024 5:13 PM EST [facility] IgA 38(L) 61 - 348 mg/dL LAB CHEMISTRY METHOD 03/27/2024 5:13 PM EST [facility] IgM 38 23 - 259 mg/dL LAB CHEMISTRY METHOD 03/27/2024 5:13 PM EST [facility] Blood Venous blood specimen / Unknown Venipuncture / Unknown 03/27/2024 2:47 PM EST 03/27/2024 4:39 PM EST Kristi Contreras MD LAB BLOOD ORDERABLES Final R esult [facility] [address] [place] [address], [place] [phone] * Lactate dehydrogenase (03/27/2024 2:47 PM EST) Pathologist [facility] LDH 177 120 - 246 unit/L LAB CHEMISTRY METHOD 03/27/2024 5:02 PM EST [facility] Blood Venous blood specimen / Unknown Venipuncture / Unknown 03/27/2024 2:47 PM EST 03/27/2024 4:39 PM EST Kristi Contreras MD LAB BLOOD ORDERABLES Final R esult Performing Organization Address City/[facility]/ZIP Co de Phone Number [facility] [address] [place] [address], [place] [phone] * (ABNORMAL) Folate (03/27/2024 2:47 PM EST) Folate >20.0(H) 2.8 - 17.0 ng/ml LAB CHEMISTRY METHOD 03/27/2024 5:13 PM EST [facility] Blood Venous blood specimen / Unknown Venipuncture / Unknown 03/27/2024 2:47 PM EST 03/27/2024 4:39 PM EST Kristi Contreras MD LAB BLOOD ORDERABLES Final R esult Performing Organization Address City/[facility]/ZIP Co de Phone Number [facility] [address] [place] [address], [place] [phone] * (ABNORMAL) Beta 2 microglobulin, serum (03/27/2024 2:47 PM EST) Beta-2 Microglobulin 2.2(H) 0.7 - 1.8 mg/L LAB CHEMISTRY METHOD 03/27/2024 5:13 PM EST [facility] Blood Venous blood specimen / Unknown Venipuncture / Unknown 03/27/2024 2:47 PM EST 03/27/2024 4:39 PM EST Kristi Contreras MD LAB BLOOD ORDERABLES Final R esult Performing Organization Address City/[facility]/ZIP Co de Phone Number [facility] [address] [place] [address], [place] [phone] * (ABNORMAL) Comprehensive metabolic panel (03/27/2024 2:47 PM EST) Sodium 131(L) 133 - 145 mmol/L LAB CHEMISTRY METHOD 03/27/2024 5:13 PM [facility] Potassium 4.5 3.5 - 5.5 mmol/L LAB CHEMISTRY METHOD 03/27/2024 5:13 PM [facility] Chloride 100 96 - 110 mmol/L LAB CHEMISTRY METHOD 03/27/2024 5:13 PM [facility] CO2 27 21 - 32 mmol/L LAB CHEMISTRY METHOD 03/27/2024 5:13 PM [facility] Anion Gap 4 3 - 11 LAB CHEMISTRY METHOD 03/27/2024 5:13 PM [facility] Glucose 93 70 - 100 mg/dL LAB CHEMISTRY METHOD 03/27/2024 5:13 PM [facility] BUN 14 5 - 25 mg/dL LAB CHEMISTRY METHOD 03/27/2024 5:13 PM [facility] Creatinine 0.75 0.50 - 1.10 mg/dL LAB CHEMISTRY METHOD 03/27/2024 5:13 PM [facility] eGFR 80 >=60 mL/min/1. 73m2 LAB CHEMISTRY METHOD 03/27/2024 5:13 PM [facility] Comment:Calculation based on the??Chronic Kidney Disease Epidemiology Collaboration (CKD-EPI) equation refit??without adjustment for race. BUN/Creatinine Ratio 18.7 LAB CHEMISTRY METHOD 03/27/2024 5:13 PM [facility] Calcium 9.7 8.5 - 10.5 mg/dL LAB CHEMISTRY METHOD 03/27/2024 5:13 PM [facility] AST (SGOT) 22 10 - 42 unit/L LAB CHEMISTRY METHOD 03/27/2024 5:13 PM [facility] ALT (SGPT) 22 10 - 60 unit/L LAB CHEMISTRY METHOD 03/27/2024 5:13 PM EST [facility] Alkaline Phosphatase 82 42 - 121 unit/L LAB CHEMISTRY METHOD 03/27/2024 5:13 PM EST [facility] Total Protein 7.1 6.0 - 8.0 g/dL LAB CHEMISTRY METHOD 03/27/2024 5:13 PM EST [facility] Albumin 3.7 3.2 - 5.0 g/dL LAB CHEMISTRY METHOD 03/27/2024 5:13 PM EST [facility] Total Bilirubin 0.4 0.0 - 1.4 mg/dL LAB CHEMISTRY METHOD 03/27/2024 5:13 PM EST [facility] Blood Venous blood specimen / Unknown Venipuncture / Unknown 03/27/2024 2:47 PM EST 03/27/2024 4:39 PM EST Kristi Contreras MD LAB BLOOD ORDERABLES Final R esult [facility] [address] [place] [address], * (ABNORMAL) Lipid panel (08/16/2021) LDL/HDL Ratio 3 0 - 4 Triglycerides 203(A) 0 - 150 mg/dL Cholesterol 175 0 - 200 mg/dL HDL 71 >=40 mg/dL LDL Cholesterol 64 0 - 100 mg/dL Blood Venous blood specimen / Unknown [facility] Provider LAB BLOOD ORDERABLES Genia l Result [...] 6.9%. IMPRESSION: Normal by WHO criteria. The [facility] Department of Internal Medicine recommends using National [...] alternative screening schedule based on tara Chirinos., [facility] March 17, 2011 for patients with osteopenia (based on hip BMD T-score) is as follows: * ??advanced osteopenia (T scores -2.00 to -2.49), BMD testing every year * ??moderate osteopenia (T scores -1.50 to -1.99), BMD testing every 5 years mild osteopenia or normal BMD (T scores -1.50 and higher), BMD testing every 15 years Procedure Note Brandon Mccratney MD - 02/15/2022 DEXA SCAN: Lumbar Spine [...] 6.9%. IMPRESSION: Normal by WHO criteria. The [facility] Department of Internal Medicine recommendsusing National Osteoporosis [...] alternative screening schedule based on tara Chirinos., [facility] for patients with osteopenia (based on hip BMD T-score) is as follows: * advanced osteopenia (T scores -2.00 to -2.49), BMD testing every year * moderate osteopenia (T scores -1.50 to -1.99), BMD testing every 5years mild osteopenia or normal BMD (T scores -1.50 and higher), BMD testingevery 15 years Nita Perkins MD IMG DXA PROCEDURES Genia l Result from Last 3 Months or Most Recently Relevant to Health Maintenance Insurance MEDICARE MEDICA[place] - [place] Care Teams Implementation Project Coordinator Relationship Specialty Start Date End Date Ayesha Marroquin PA [address] [place] [address] PCP - General 12/29/22
--- OUTSIDE RECORDS SUMMARY | 2024-06-18 14:29 | XMS_ITS | Encounter Summary ---
Author Organization [facility] Address [address] [place] [address] Care Team Providers Care Cash Room Clerk Name Role Phone Maricarmen Prescott MD Primary Care Provider Unava ilGeoffrey Hall MD Unavailable Beatriz Talbot NP Unavailable Unavailab Beti Patrick MD Primary Care Provider [phone] Johan Griffin Primary Care Provider [phone] Nita Gutierrez DIPPER AND DRIER Unavailable [phone] Ayesha Marroquin PA-C Primary Care Provider Unavail able Reason for Visit * Reason Comments E-prescribe Rx Request Encounter Details Date Type Department Care Team Description 11/03/2020 Refill Gastroenterology - [address] [place] [phone] Maricarmen Prescott MD E-prescribe Rx Request Social History Tobacco Use [...] encounter Miscellaneous Notes * Telephone Encounter - Reese Michel M.A. - 11/03/2020 3:25 PM EDT Faxed to pharmacy * Telephone Encounter - Lala Rosa M.A. - 11/03/2020 12:01 PM EDT Upcoming appt 11/30/2020 Lab Results Component Value Date NA 134 06/19/2020 K 4.0 06/19/2020 CO2 26 06/19/2020 CL 102 06/19/2020 BUN 13 06/19/2020 CREAT 0.82 06/19/2020 GLU 89 06/19/2020 CA 8.9 06/19/2020 GFR > 60 06/19/2020 * Telephone Encounter - Vianney Guerra - 11/03/2020 11:57 AM EDT Patient would like script to be: E-PRESCRIBED/FAXED TO PHARMACY WHEN WAS THE PATIENT'S LAST APPOINTMENT IN ADULT MEDICINE? 08-14-20 WHEN WAS THE LAST TIME THE PATIENT SAW THEIR PCP? Same as above Does patient have an upcoming appointment? Yes 11-30-20 (THE MEDICATION REQUESTED IS ON THE MED LIST ABOVE) All of the medications requested were on the CURRENT MEDS list Did you check the Pharmacy information above?: YES Patient wants: 90 -day supply Is this a mail order prescription request ? NO If the refill is from a FAXED refill request what is the RX # listed on the fax? N/A Patients current insurance carrier is: [place] / [place] / Product Type: MEDICARE [id number] documented in this encounter Plan of Treatment Not on file documented as of this encounter Visit Diagnoses Diagnosis Gastroparesis documented in this encounter Care Teams Cash Room Clerk Relationship Specialty Start Date End Date Maricarmen Prescott MD PCP - General 02/01/07 09/07/21 Beti Carrion MD [address] [place] [address] PCP - General Internal Medicine 10/04/21 11/20/22 Johan Griffin [address] [place] [address] PCP - General Internal Medicine 09/08/21 10/03/21 Ayesha Marroquin PA-C [address] [place] [address] PCP - General Internal Medicine 12/29/22 Geoffrey Lynn MD Specialist Cardiovascular Disease 10/20/20 Beatriz Talbot NP Specialist Cardiology 10/20/20 12/27/22 Nita Gutierrez NP [address] [place] [address] Cardiology 12/28/22 documented as of this encounter
--- OUTSIDE RECORDS SUMMARY | 2024-06-18 14:29 | XMS_ITS | Encounter Summary ---
Author Organization [facility] Address [address] [place] [address] Care Team Providers Care Knobber Name Role Phone Maricarmen Prescott MD Primary Care Provider Unava Geoffrey Guardado MD Unavailable Beatriz Talbot SPRAY GUN OPERATOR Unavailable Unavailab Beti Patrick MD Primary Care Provider [phone] Johan Griffin Primary Care Provider [phone] Nita Gutierrez SPRAY GUN OPERATOR Unavailable [phone] Ayesha Marroquin PA-C Primary Care Provider Unavail able Encounter Details Date Type Department Care Team Description 03/26/2010 Best Worker Report Medical Records [address] [place] [phone] Johnathan Reveles Social History Tobacco Use Types Packs/Day Years [...] on filedocumented in this encounter Care Teams Knobber Relationship Specialty Start Date End Date Maricarmen Prescott MD PCP - General 02/01/07 09/07/21 Beti Carrion MD [address] [place] [address] PCP - General Internal Medicine 10/04/21 11/20/22 Johan Griffin [address] [place] [address] PCP - General Internal Medicine 09/08/21 10/03/21 Ayesha Marroquin PA-C [address] [place] [address] PCP - General Internal Medicine 12/29/22 Geoffrey yLnn MD Specialist Cardiovascular Disease 10/20/20 Beatriz Talbot NP Specialist Cardiology 10/20/20 12/27/22 Nita Gutierrez NP [address] [place] [address] Cardiology 12/28/22 documented as of this encounter
--- OUTSIDE RECORDS SUMMARY | 2024-06-18 14:29 | XMS_ITS | Encounter Summary ---
Author Organization [facility] Address [address] [place] [address] Care Team Providers Care Quarry Manager Name Role Phone Maricarmen Prescott MD Primary Care Provider Unava ilGeoffrey Hall MD Unavailable Beatriz Talbot NP Unavailable Unavailab Beti Patrick MD Primary Care Provider [phone] Johan Griffin Primary Care Provider [phone] Nita Gutierrez NP Unavailable [phone] Ayesha Marroquin PA-C Primary Care Provider Unavail able Reason for Visit * Reason Onset Date Comments refill request 09/11/2020 Encounter Details Date Type Department Care Team Description 09/11/2020 Refill Gastroenterology - [place] [address] [phone] Michel Higuera PA-C [address] [address] refill request Social History Tobacco Use Types Packs/Day Years [...] PM EDT documented as of this encounter Miscellaneous Notes * Telephone Encounter - Wanda Flynn - 09/11/2020 3:17 PM EDT POP 07/05/19 NOV 10/08/20 documented in this encounter Plan of Treatment Not on file documented as of this encounter Visit Diagnoses Not on filedocumented in this encounter Care Teams Quarry Manager Relationship Specialty Start Date End Date Maricarmen Prescott MD PCP - General 02/01/07 09/07/21 Beti Carrion MD [address] [place] [address] PCP - General Internal Medicine 10/04/21 11/20/22 Johan Griffin [address] [place] [address] PCP - General Internal Medicine 09/08/21 10/03/21 Ayesha Marroquin PA-C [address] [place] [address] PCP - General Internal Medicine 12/29/22 Geoffrey Lynn MD Specialist Cardiovascular Disease 10/20/20 Beatriz Talbot NP Specialist Cardiology 10/20/20 12/27/22 Nita Gutierrez NP [address] [place] [phone] Cardiology 12/28/22 documented as of this encounter
--- OUTSIDE RECORDS SUMMARY | 2024-06-18 14:29 | XMS_ITS | Encounter Summary ---
Author Organization [facility] Address [address] [place] [address] Care Team Providers Care Strategy Manager Name Role Phone Maricarmen Prescott MD Primary Care Provider Unava ilGeoffrey Hall MD Unavailable Beatriz Talbot NP Unavailable Unavailab Beti Patrick MD Primary Care Provider [phone] Johan Griffin Primary Care Provider [phone] Nita Gutierrez NP Unavailable [phone] Ayesha Marroquin PA-C Primary Care Provider Unavail able Encounter Details Date Type Department Care Team Description 02/07/2015 SCAN Medical Records [address] [place] [address] Stevan Love MD Social History Tobacco Use Types Packs/Day Years [...] Name Priority Date/Time Associated Diagnosis Comments OUTSIDE ECHO Routine 02/07/2015 documented in this encounter Results * OUTSIDE ECHO (02/07/2015) Provider Default CARDIOLOGY documented in this encounter Visit Diagnoses Not on filedocumented in this encounter Care Teams Strategy Manager Relationship Specialty Start Date End Date Maricarmen Prescott MD PCP - General 02/01/07 09/07/21 Beti Carrion MD [address] [place] [address] PCP - General Internal Medicine 10/04/21 11/20/22 Johan Griffin [address] [place] [address] PCP - General Internal Medicine 09/08/21 10/03/21 Ayesha Marroquin PA-C [address] [place] [address] PCP - General Internal Medicine 12/29/22 Geoffrey Lynn MD Specialist Cardiovascular Disease 10/20/20 Beatriz Talbot NP Specialist Cardiology 10/20/20 12/27/22 Nita Gutierrez NP [address] [place] [address] Cardiology 12/28/22 documented as of this encounter
--- OUTSIDE RECORDS SUMMARY | 2024-06-18 14:29 | XMS_ITS | Encounter Summary ---
Author Organization [facility] Address [address] [place] [address] Care Team Providers Care Terrazzo Tile Maker Name Role Phone Maricarmen Prescott MD Primary Care Provider Unava Geoffrey Guardado MD Unavailable Beatriz Talbot NP Unavailable Unavailab Beti Patrick MD Primary Care Provider [phone] Johan Griffin Primary Care Provider [phone] Nita Gutierrez WILDLIFE BIOSTATION RESEARCH ECOLOGIST Unavailable [phone] Ayesha Marroquin PA-C Primary Care Provider Unavail able Encounter Details Date Type Department Care Team Description 11/22/2018 Slab Lifting Engineer Report Medical Records [address] [place] [address] Petar Smith MD Social History Tobacco Use Types Packs/Day [...] on filedocumented in this encounter Care Teams Terrazzo Tile Maker Relationship Specialty Start Date End Date Maricarmen Prescott MD PCP - General 02/01/07 09/07/21 Beti Carrion MD [address] [place] [address] PCP - General Internal Medicine 10/04/21 11/20/22 Johan Griffin [address] [place] [address] [id number] PCP - General Internal Medicine 09/08/21 10/03/21 Ayesha Marroquin PA-C [address] [place] [address] PCP - General Internal Medicine 12/29/22 Geoffrey Lynn MD Specialist Cardiovascular Disease 10/20/20 Beatriz Talbot NP Specialist Cardiology 10/20/20 12/27/22 Nita Gutierrez NP [address] [place] [address] Cardiology 12/28/22 documented as of this encounter
--- OUTSIDE RECORDS SUMMARY | 2024-06-18 14:29 | XMS_ITS | Encounter Summary ---
Author Organization [facility] Address [address] [place] [address] Care Team Providers Care Parts Fabricator Name Role Phone Maricarmen Prescott MD Primary Care Provider Unava Geoffrey Guardado MD Unavailable Beatriz Talbot NP Unavailable Unavailab Beti Patrick MD Primary Care Provider [phone] Johan Griffin Primary Care Provider [phone] Nita Gutierrez NP Unavailable [phone] Ayesha Marroquin PA-C Primary Care Provider Unavail able Encounter Details Date Type Department Care Team Description 01/30/2018 [facility] Medical Records [address] [place] [address] Abstract, Provider Social History Tobacco Use Types [...] on filedocumented in this encounter Care Teams Parts Fabricator Relationship Specialty Start Date End Date Maricarmen Prescott MD PCP - General 02/01/07 09/07/21 Beti Carrion MD [address] [place] [address] PCP - General Internal Medicine 10/04/21 11/20/22 Johan Griffin [address] [place] [address] PCP - General Internal Medicine 09/08/21 10/03/21 Ayesha Marroquin PA-C [address] [place] [address] PCP - General Internal Medicine 12/29/22 Geoffrey Lynn MD Specialist Cardiovascular Disease 10/20/20 Beatriz Talbot NP Specialist Cardiology 10/20/20 12/27/22 Nita Gutierrez NP [address] [place] [address] Cardiology 12/28/22 documented as of this encounter
--- OUTSIDE RECORDS SUMMARY | 2024-06-18 14:29 | XMS_ITS | Encounter Summary ---
Author Organization [facility] Address [address] [place] [address] Care Team Providers Care General Adjuster Name Role Phone Maricarmen Prescott MD Primary Care Provider Unava Geoffrey Guardado MD Unavailable Beatriz Talbot TOWEL SORTER Unavailable Unavailab Beti Patrick MD Primary Care Provider [phone] Johan Griffin Primary Care Provider [phone] Nita Gutierrez TOWEL SORTER Unavailable [phone] Ayesha Marroquin PA-C Primary Care Provider Unavail able Encounter Details Date Type Department Care Team Description 10/08/2009 Divorce Mediator Report Medical Records [address] [place] [address] Arnold King Social History Tobacco Use Types Packs/Day Years Used Date Smoking Tobacco: Former Comments:quit 1999 Alcohol Use Standard Drinks/Week Comments Not Asked 0 (1 standard drink = 0.6 oz pur e alcohol) Sex Assigned at Date Recorded Not on file Job Start Date Occupation Industry Not on file Not on file Not on file documented as of this encounter Plan of Treatment Not on file documented as of this encounter Visit Diagnoses Not on filedocumented in this encounter Care Teams General Adjuster Relationship Specialty Start Date End Date Maricarmen Prescott MD PCP - General 02/01/07 09/07/21 Beti Carrion MD [address] [place] [address] PCP - General Internal Medicine 10/04/21 11/20/22 Johan Griffin [address] [place] [address] PCP - General Internal Medicine 09/08/21 10/03/21 Ayesha Marroquin PA-C [address] [place] [address] PCP - General Internal Medicine 12/29/22 Geoffrey Lynn MD Specialist Cardiovascular Disease 10/20/20 Beatriz Talbot NP Specialist Cardiology 10/20/20 12/27/22 Nita Gutierrez NP [address] [place] [address] Cardiology 12/28/22 documented as of this encounter
--- OUTSIDE RECORDS SUMMARY | 2024-06-18 14:29 | XMS_ITS | Encounter Summary ---
Author Organization [facility] Address [address] [place] [address] Care Team Providers Care Broommaking Supervisor Name Role Phone Maricarmen Prescott MD Primary Care Provider Unava Geoffrey Guardado MD Unavailable Beatriz Talbot COIL MACHINE SUPERVISOR Unavailable Unavailab Beti Patrick MD Primary Care Provider [phone] Johan Griffin Primary Care Provider [phone] Nita Gutierrez COIL MACHINE SUPERVISOR Unavailable [phone] Ayesha Marroquin PA-C Primary Care Provider Unavail able Encounter Details Date Type Department Care Team Description 01/09/2015 Wellness Visit Medical Records [address] [place] [address] Maricarmen Prescott MD Social History Tobacco Use Types Packs/Day [...] on filedocumented in this encounter Care Teams Broommaking Supervisor Relationship Specialty Start Date End Date Maricarmen Prescott MD PCP - General 02/01/07 09/07/21 Beti Carrion MD [address] [place] [address] PCP - General Internal Medicine 10/04/21 11/20/22 Johan Griffin [address] [place] [address] PCP - General Internal Medicine 09/08/21 10/03/21 Ayesha Marroquin PA-C [address] [place] [address] PCP - General Internal Medicine 12/29/22 Geoffrey Lynn MD Specialist Cardiovascular Disease 10/20/20 Beatriz Talbot NP Specialist Cardiology 10/20/20 12/27/22 Nita Gutierrez NP [address] [place] [address] Cardiology 12/28/22 documented as of this encounter
--- OUTSIDE RECORDS SUMMARY | 2024-06-18 14:29 | XMS_ITS | Encounter Summary ---
Author Organization [facility] Address [address] [place] [address] Care Team Providers Care Cable Technician Name Role Phone Maricarmen Prescott MD Primary Care Provider Unava Geoffrey Guardado MD Unavailable Beatriz Talbot NP Unavailable Unavailab Beti Patrick MD Primary Care Provider [phone] Johan Griffin Primary Care Provider [phone] Nita Gutierrez NP Unavailable [phone] Ayesha Marroquin PA-C Primary Care Provider Unavail able Encounter Details Date Type Department Care Team Description 01/30/2018 Hospital Medical Records [address] [place] [address] Pau'Sarah Gonzalez, MEEK Social History Tobacco Use Types Packs/Day Years [...] on filedocumented in this encounter Care Teams Cable Technician Relationship Specialty Start Date End Date Maricarmen Prescott MD PCP - General 02/01/07 09/07/21 Beti Carrion MD [address] [place] [address] PCP - General Internal Medicine 10/04/21 11/20/22 Johan Griffin [address] [place], [place] [id number] PCP - General Internal Medicine 09/08/21 10/03/21 Ayesha Marroquin PA-C [address] [place] [address] PCP - General Internal Medicine 12/29/22 Geoffrey Lynn MD Specialist Cardiovascular Disease 10/20/20 Beatriz Talbot NP Specialist Cardiology 10/20/20 12/27/22 Nita Gutierrez NP [address] [place] [address] Cardiology 12/28/22 documented as of this encounter
--- OUTSIDE RECORDS SUMMARY | 2024-06-18 14:29 | XMS_ITS | Encounter Summary ---
Author Organization [facility] Address [address] [place] [address] Care Team Providers Care Vp Account Director Name Role Phone Maricarmen Prescott MD Primary Care Provider Unava Geoffrey Guardado MD Unavailable Beatriz Talbot NP Unavailable Unavailab Beti Patrick MD Primary Care Provider [phone] Johan Griffin Primary Care Provider [phone] Nita Gutierrez NP Unavailable [phone] Ayesha Marroquin PA-C Primary Care Provider Unavail able Encounter Details Date Type Department Care Team Description 08/13/2018 [facility] Medical Records [address] [place] [address] Abstract, Provider Social History Tobacco Use Types [...] on filedocumented in this encounter Care Teams Vp Account Director Relationship Specialty Start Date End Date Maricarmen Prescott MD PCP - General 02/01/07 09/07/21 Beti Carrion MD [address] [place] [address] PCP - General Internal Medicine 10/04/21 11/20/22 Johan Griffin [address] [place] [address] PCP - General Internal Medicine 09/08/21 10/03/21 Ayesha Marroquin PA-C [address] [place] [address] PCP - General Internal Medicine 12/29/22 Geoffrey Lynn MD Specialist Cardiovascular Disease 10/20/20 Beatriz Talbot NP Specialist Cardiology 10/20/20 12/27/22 Nita Gutierrez NP [address] [place] [address] Cardiology 12/28/22 documented as of this encounter
--- OUTSIDE RECORDS SUMMARY | 2024-06-18 14:29 | XMS_ITS | Encounter Summary ---
Author Organization [facility] Address [address] [place] [address] Care Team Providers Care Foundry Laborer Coreroom Name Role Phone Maricarmen Prescott MD Primary Care Provider Unava Geoffrey Guardado MD Unavailable Beatriz Talbot NP Unavailable Unavailab Beti Patrick MD Primary Care Provider [phone] Johan Griffin Primary Care Provider Nita Gutierrez ELECTRONICS SYSTEM MECHANIC Unavailable [phone] Ayesha Marroquin PA-C Primary Care Provider Unavail able Encounter Details Date Type Department Care Team Description 04/23/2009 Launchman Report Medical Records [address] [place] [address] Sai Romo Social History Tobacco Use Types Packs/Day Years Used Date Smoking Tobacco: Never Assessed Sex Assigned at Date Recorded Not on file Job Start Date Occupation Industry Not on file Not on file Not on file documented as of this encounter Plan of Treatment Not on file documented as of this encounter Visit Diagnoses Not on filedocumented in this encounter Care Teams Foundry Laborer Coreroom Relationship Specialty Start Date End Date Maricarmen Prescott MD PCP - General 02/01/07 09/07/21 Beti Carrion MD [address] [place] [address] PCP - General Internal Medicine 10/04/21 11/20/22 Johan Griffin [address] [place] [address] PCP - General Internal Medicine 09/08/21 10/03/21 Ayesha Marroquin PA-C [address] [place] [address] PCP - General Internal Medicine 12/29/22 Geoffrey Lynn MD Specialist Cardiovascular Disease 10/20/20 Beatriz Talbot NP Specialist Cardiology 10/20/20 12/27/22 Nita Gutierrez NP [address] [place] [address] Cardiology 12/28/22 documented as of this encounter
--- OUTSIDE RECORDS SUMMARY | 2024-06-18 14:29 | XMS_ITS | Encounter Summary ---
Author Organization [facility] Address [address] [place] [address] Care Team Providers Care Cold Work Operator Name Role Phone Maricarmen Prescott MD Primary Care Provider Unava Geoffrey Guardado MD Unavailable Beatriz Talbot NP Unavailable Unavailab Beti Patrick MD Primary Care Provider [phone] Johan Griffin Primary Care Provider Nita Gutierrez ELECTRICIAN ASSISTANT Unavailable [phone] Ayesha Marroquin PA-C Primary Care Provider Unavail able Encounter Details Date Type Department Care Team Description 04/03/2008 Inclinometer Tester Report Medical Records [address] [place] [address] Sai Romo Social History Tobacco Use Types Packs/Day Years Used Date Smoking Tobacco: Never Assessed Sex Assigned at Date Recorded Not on file Job Start Date Occupation Industry Not on file Not on file Not on file documented as of this encounter Plan of Treatment Not on file documented as of this encounter Visit Diagnoses Not on filedocumented in this encounter Care Teams Cold Work Operator Relationship Specialty Start Date End Date Maricarmen Prescott MD PCP - General 02/01/07 09/07/21 Beti Carrion MD [address] [place] [address] PCP - General Internal Medicine 10/04/21 11/20/22 Johan Griffin [address] [place] [address] PCP - General Internal Medicine 09/08/21 10/03/21 Ayesha Marroquin PA-C [address] [place] [address] PCP - General Internal Medicine 12/29/22 Geoffrey Lynn MD Specialist Cardiovascular Disease 10/20/20 Beatriz Talbot NP Specialist Cardiology 10/20/20 12/27/22 Nita Gutierrez NP [address] [place] [address] Cardiology 12/28/22 documented as of this encounter
--- OUTSIDE RECORDS SUMMARY | 2024-06-18 14:29 | XMS_ITS | Encounter Summary ---
Author Organization [facility] Address [address] [place] [address] Care Team Providers Care Lift Supervisor Name Role Phone Maricarmen Prescott MD Primary Care Provider Unava ilGeoffrey Hall MD Unavailable Beatriz Talbot NP Unavailable Unavailab Beti Patrick MD Primary Care Provider Johan Griffin Primary Care Provider [phone] Nita Gutierrez CONTRACTOR GENERAL BUILDING Unavailable [phone] Ayesha Marroquin PA-C Primary Care Provider Unavail able Reason for Referral * EXTERNAL (Urgent) - Authorized/Booked Specialty Diagnoses / Procedures Referred By Contsd t Referred To Contact ORTHOPEDICS / Orthopedic Procedures REFERRAL TO ORTHOPEDICS (IN NETWORK) Darius Denney MD [address] [place] [address] Center, [facility] [address] [place] [address] Referral ID Status Reason Start Date Expiration Date V isits Requested Visits Authorized SEE NOTE Authorized/B ooked 01/25/2018 04/26/2018 1 1 Reason for Visit * Reason Onset Date Comments Sole Layer Hand Feedback 01/25/2018 orthopedics Encounter Details Date Type Department Care Team Description 01/25/2018 Telephone Medicine/Pediatrics - [address] [place] [address] Maricarmen Prescott MD Sole Layer Hand Feedback (orthopedics) Social History Tobacco Use Types Packs/Day Years [...] encounter Miscellaneous Notes * Telephone Encounter - Darius Denney MD - 01/25/2018 10:44 PM EST Order placed for specifics regarding fracture of wrist * Telephone Encounter - Gisselle Givens R.N. - 01/25/2018 2:47 PM EST Please could you sent an order to Sumi dao regarding below unable to process order because body part not put in order. Anhnet in a lot of pain and needs this ortho consult lainey. Thankyou. Bennett a fracture of her left wrist. Thanks again. * Telephone Encounter - Sumi Dao - 01/25/2018 8:[address] Prescott, Please place an updated orthopedic order as the body part that is fractured must be included on theorder and currently the order states fracture . Thank you, Sumi Referrals Coordinator documented in this encounter Plan of Treatment Not on file documented as of this encounter Visit Diagnoses Not on filedocumented in this encounter Care Teams Lift Supervisor Relationship Specialty Start Date End Date Maricarmen Prescott MD PCP - General 02/01/07 09/07/21 Beti Carrion MD [address] [place] [address] PCP - General Internal Medicine 10/04/21 11/20/22 Johan Griffin [address] [place] [address] PCP - General Internal Medicine 09/08/21 10/03/21 Ayesha Marroquin PA-C [address] [place] [address] PCP - General Internal Medicine 12/29/22 Geoffrey Lynn MD Specialist Cardiovascular Disease 10/20/20 Beatriz Talbot NP Specialist Cardiology 10/20/20 12/27/22 Nita Gutierrez NP [address] [place] [address] Cardiology 12/28/22 documented as of this encounter
--- OUTSIDE RECORDS SUMMARY | 2024-06-18 14:29 | XMS_ITS | Encounter Summary ---
Author Organization [facility] Address [address] [place] [address] Care Team Providers Care Order Filler Name Role Phone Maricarmen Prescott MD Primary Care Provider Unava Geoffrey Guardado MD Unavailable Beatriz Talbot NP Unavailable Unavailab Beti Patrick MD Primary Care Provider [phone] Johan Griffin Primary Care Provider [phone] Nita Gutierrez PLANER STONE Unavailable [phone] Ayesha Marroquin PA-C Primary Care Provider Unavail able Encounter Details Date Type Department Care Team Description 11/22/2018 Drill Operator Pneumatic Report Medical Records [address] [place] [address] Maricarmen Prescott MD Social History Tobacco Use [...] on filedocumented in this encounter Care Teams Order Filler Relationship Specialty Start Date End Date Maricarmen Prescott MD PCP - General 12/6/07 7/12/22 Beti Carrion MD [address] [place] [address] PCP - General Internal Medicine 10/04/21 11/20/22 Johan Griffin [address] [place], [place] 6[address]5020 PCP - General Internal Medicine 09/08/21 10/03/21 Ayesha Marroquin PA-C [address] [place] [address] PCP - General Internal Medicine 12/29/22 Geoffrey Lynn MD Specialist Cardiovascular Disease 10/20/20 Beatriz Talbot NP Specialist Cardiology 10/20/20 12/27/22 Nita Gutierrez NP [address] [place] [address] Cardiology 12/28/22 documented as of this encounter
--- OUTSIDE RECORDS SUMMARY | 2024-06-18 14:29 | XMS_ITS | Encounter Summary ---
Author Organization [facility] Address [address] [place] [address] Care Team Providers Care Manager Intranet Name Role Phone Maricarmen Prescott MD Primary Care Provider Unava Geoffrey Guardado MD Unavailable Beatriz Talbot NP Unavailable Unavailab Beti Patrick MD Primary Care Provider [phone] Johan Griffin Primary Care Provider [phone] Nita Gutierrez NP Unavailable [phone] Ayesha Marroquin PA-C Primary Care Provider Unavail able Encounter Details Date Type Department Care Team Description 11/05/2020 Echometer Engineer Report Medical Records [address] [place] [address] Kristi Contreras MD Social History Tobacco Use Types Packs/Day [...] on filedocumented in this encounter Care Teams Manager Intranet Relationship Specialty Start Date End Date Maricarmen Prescott MD PCP - General 02/01/07 09/07/21 Beti Carrion MD [address] [place] [address] PCP - General Internal Medicine 10/04/21 11/20/22 Johan Griffin [address] [place] [address] PCP - General Internal Medicine 09/08/21 10/03/21 Ayesha Marroquin PA-C [address] [place] [address] PCP - General Internal Medicine 12/29/22 Geoffrey Lynn MD Specialist Cardiovascular Disease 10/20/20 Beatriz Talbot NP Specialist Cardiology 10/20/20 12/27/22 Nita Gutierrez NP [address] [place] [address] Cardiology 12/28/22 documented as of this encounter
--- OUTSIDE RECORDS SUMMARY | 2024-06-18 14:29 | XMS_ITS | Encounter Summary ---
Author Organization [facility] Address [address] [place] [address] Care Team Providers Care Psychological Operations Name Role Phone Maricarmen Prescott MD Primary Care Provider Unava Geoffrey Guardado MD Unavailable Beatriz Talbot NP Unavailable Unavailab Beti Patrick MD Primary Care Provider [phone] Johan Griffin Primary Care Provider [phone] Nita Gutierrez KENO TERMINAL OPERATOR Unavailable [phone] Ayesha Marroquin PA-C Primary Care Provider Unavail able Encounter Details Date Type Department Care Team Description 10/15/2020 Tuber Machine Operator Report Medical Records [address] [place] [address] Jhonny Grayson DO Social History Tobacco Use Types Packs/Day Years [...] on filedocumented in this encounter Care Teams Psychological Operations Relationship Specialty Start Date End Date Maricarmen Prescott MD PCP - General 12/6/07 7/12/22 Beti Carrion MD [address] [place] [address] PCP - General Internal Medicine 10/04/21 11/20/22 Johan Griffin [address] [place], [place] [address] PCP - General Internal Medicine 09/08/21 10/03/21 Ayesha Marroquin PA-C [address] [place] [address] PCP - General Internal Medicine 12/29/22 Geoffrey Lynn MD Specialist Cardiovascular Disease 10/20/20 Beatriz Talbot NP Specialist Cardiology 10/20/20 12/27/22 Nita Gutierrez NP [address] [place] [address] Cardiology 12/28/22 documented as of this encounter
--- OUTSIDE RECORDS SUMMARY | 2024-06-18 14:29 | XMS_ITS | Encounter Summary ---
Author Organization [facility] Address [address] [place] [address] Care Team Providers Care Deputy Court Name Role Phone Maricarmen Prescott MD Primary Care Provider Unava Geoffrey Guardado MD Unavailable Beatriz Talbot NP Unavailable Unavailab Beti Patrick MD Primary Care Provider [phone] Johan Griffin Primary Care Provider [phone] Nita Gutierrez DEICER INSPECTOR PNEUMATIC Unavailable [phone] Ayesha Marroquin PA-C Primary Care Provider Unavail able Encounter Details Date Type Department Care Team Description 11/15/2017 Hospice Office Coordinator Report Medical Records [address] [place] [address] Alissa Beltran Social History Tobacco Use Types Packs/Day Years [...] on filedocumented in this encounter Care Teams Deputy Court Relationship Specialty Start Date End Date Maricarmen Prescott MD PCP - General 12/6/07 7/12/22 Beti Carrion MD [address] [place] [address] PCP - General Internal Medicine 10/04/21 11/20/22 Johan Griffin [address] [place], [place] [address]016[address] PCP - General Internal Medicine 09/08/21 10/03/21 Ayesha Marroquin PA-C [address] [place] [address] PCP - General Internal Medicine 12/29/22 Geoffrey Lynn MD Specialist Cardiovascular Disease 10/20/20 Beatriz Talbot NP Specialist Cardiology 10/20/20 12/27/22 Nita Gutierrez NP [address] [place] [address] Cardiology 12/28/22 documented as of this encounter
--- OUTSIDE RECORDS SUMMARY | 2024-06-18 14:29 | XMS_ITS | Encounter Summary ---
Author Organization [facility] Address [address] [place] [address] Care Team Providers Care Information Services Vice President Name Role Phone Maricarmen Prescott MD Primary Care Provider Unava Geoffrey Guardado MD Unavailable Beatriz Talbot NP Unavailable Unavailab Beti Patrick MD Primary Care Provider [phone] Johan Griffin Primary Care Provider [phone] Nita Gutierrez NP Unavailable [phone] Ayesha Marroquin PA-C Primary Care Provider Unavail able Reason for Visit * Reason Onset Date Comments Appointment Cancelled 08/08/2012 injection Encounter Details Date Type Department Care Team Description 08/08/2012 Telephone Physiatry - [address] [address] Jhonny Grayson DO Appointment Cancelled (injection) Social History Tobacco Use Types Packs/Day Years [...] encounter Miscellaneous Notes * Telephone Encounter - Yudy Jaime - 08/08/2012 8:57 AM EDT ERROR documented in this encounter Plan of Treatment Not on file documented as of this encounter Visit Diagnoses Not on filedocumented in this encounter Care Teams Information Services Vice President Relationship Specialty Start Date End Date Maricarmen Prescott MD PCP - General 02/01/07 09/07/21 Beti Carrion MD [address] [place] [address] PCP - General Internal Medicine 10/04/21 11/20/22 Johan Griffin [address] [place] [address] PCP - General Internal Medicine 09/08/21 10/03/21 Ayesha Marroquin PA-C [address] [place] [address] PCP - General Internal Medicine 12/29/22 Geoffrey Lynn MD Specialist Cardiovascular Disease 10/20/20 Beatriz Talbot NP Specialist Cardiology 10/20/20 12/27/22 Nita Gutierrez NP [address] [place] [address] Cardiology 12/28/22 documented as of this encounter
--- OUTSIDE RECORDS SUMMARY | 2024-06-18 14:29 | XMS_ITS | Encounter Summary ---
Author Organization [facility] Address [address] [place] [address] Care Team Providers Care Knitting Machine Operator Automatic Name Role Phone Maricarmen Prescott MD Primary Care Provider Unava Geoffrey Guardado MD Unavailable Beatriz Talbot MANAGER OF APPLICATIONS DEVELOPMENT Unavailable Unavailab Beti Patrick MD Primary Care Provider [phone] Johan Griffin Primary Care Provider [phone] Nita Gutierrez MANAGER OF APPLICATIONS DEVELOPMENT Unavailable [phone] Ayesha Marorquin PA-C Primary Care Provider Unavail able Encounter Details Date Type Department Care Team Description 04/29/2010 Content Manager Report Medical Records [address] [place] [address] Genny Grossman MD Social History Tobacco Use Types Packs/Day [...] on filedocumented in this encounter Care Teams Knitting Machine Operator Automatic Relationship Specialty Start Date End Date Maricarmen Prescott MD PCP - General 02/01/07 09/07/21 Beti Carrion MD [address] [place] [address] PCP - General Internal Medicine 10/04/21 11/20/22 Johan Griffin [address] [place] [address] PCP - General Internal Medicine 09/08/21 10/03/21 Ayesha Marroquin PA-C [address] [place] [address] PCP - General Internal Medicine 12/29/22 Geoffrey Lynn MD Specialist Cardiovascular Disease 10/20/20 Beatriz Talbot NP Specialist Cardiology 10/20/20 12/27/22 Nita Gutierrez NP [address] [place] [address] Cardiology 12/28/22 documented as of this encounter
--- OUTSIDE RECORDS SUMMARY | 2024-06-18 14:29 | XMS_ITS | Encounter Summary ---
Author Organization [facility] Address [address] [place] [address] Care Team Providers Care Professor Of Nursing Name Role Phone Maricarmen Prescott MD Primary Care Provider Unava ilGeoffrey Hall MD Unavailable Beatriz Talbot NP Unavailable Unavailab Beti Patrick MD Primary Care Provider [phone] Johan Griffin Primary Care Provider [phone] Nita Gutierrez NP Unavailable [phone] Ayesha Marroquin PA-C Primary Care Provider Unavail able Reason for Visit * Reason Comments E-prescribe Rx Request Encounter Details Date Type Department Care Team Description 10/27/2020 Refill Gastroenterology - [place] [address] [id number] Michel Higuera PA-C [address] [address] E-prescribe Rx Request Social History Tobacco Use [...] on filedocumented in this encounter Care Teams Professor Of Nursing Relationship Specialty Start Date End Date Maricarmen Prescott MD PCP - General 02/01/07 09/07/21 Beti Carrion MD [address] [place] [address] PCP - General Internal Medicine 10/04/21 11/20/22 Johan Griffin [address] [place] [address] [phone] PCP - General Internal Medicine 09/08/21 10/03/21 Ayesha Marroquin PA-C [address] [place] [address] PCP - General Internal Medicine 12/29/22 Geoffrey Lynn MD Specialist Cardiovascular Disease 10/20/20 Beatriz Talbot NP Specialist Cardiology 10/20/20 12/27/22 Nita Gutierrez NP [address] [place] [address] Cardiology 12/28/22 documented as of this encounter
--- OUTSIDE RECORDS SUMMARY | 2024-06-18 14:29 | XMS_ITS | Encounter Summary ---
Author Organization [facility] Address [address] [place] [address] Care Team Providers Care Tire Regrooving Machine Operator Name Role Phone Maricarmen Prescott MD Primary Care Provider Unava Geoffrey Guardado MD Unavailable Beatriz Talbot NP Unavailable Unavailab Beti Patrcik MD Primary Care Provider [phone] Johan Griffin Primary Care Provider [phone] Nita Gutierrez NP Unavailable [phone] Ayesha Marroquin PA-C Primary Care Provider Unavail able Encounter Details Date Type Department Care Team Description 06/11/2018 Business Doc Medical Records [address] [place] [address] Abstract, Provider Social History Tobacco Use Types [...] on filedocumented in this encounter Care Teams Tire Regrooving Machine Operator Relationship Specialty Start Date End Date Maricarmen Prescott MD PCP - General 02/01/07 09/07/21 Beti Carrion MD [address] [place] [address] PCP - General Internal Medicine 10/04/21 11/20/22 Johan Griffin [address] [place] [address] PCP - General Internal Medicine 09/08/21 10/03/21 Ayesha Marroquin PA-C [address] [place] [address] PCP - General Internal Medicine 12/29/22 Geoffrey Lynn MD Specialist Cardiovascular Disease 10/20/20 Beatriz Talbot NP Specialist Cardiology 10/20/20 12/27/22 Nita Gutierrez NP [address] [place] [address] Cardiology 12/28/22 documented as of this encounter
--- OUTSIDE RECORDS SUMMARY | 2024-06-18 14:29 | XMS_ITS | Encounter Summary ---
Author Organization [employer] [facility] Address [address] [place] [address] Care Team Providers Care Riveter Portable Machine Name Role Phone Geoffrey Lynn MD Unavailable Nita Gutierrez NP Unavailable [phone] Ayesha Marroquin PA-C Primary Care Provider Unavail able Encounter Details Date Type Department Care Team Description 08/21/2023 Hospital Medical Records [address] [place] [address] Social History Tobacco Use Types Packs/Day Years [...] Date/Time Associated Diagnosis Comments OUTSIDE EKG Routine 08/21/2023 OUTSIDE PLAIN FILM Routine 08/21/2023 OUTSIDE LAB Routine 08/21/2023 documented in this encounter Results * OUTSIDE PLAIN FILM (08/21/2023) Provider Abstract RADIOLOGY * OUTSIDE LAB (08/21/2023) Provider Abstract LAB * OUTSIDE EKG (08/21/2023) Provider Abstract CARDIOLOGY documented in this encounter Visit Diagnoses Not on filedocumented in this encounter Care Teams Riveter Portable Machine Relationship Specialty Start Date End Date Ayesha Marroquin PA-C PCP - General Internal Medicine 12/29/22 Geoffrey Lynn MD Specialist Cardiovascular Disease 10/20/20 Nita Gutierrez NP Cardiology 12/28/22 documented as of this encounter
--- OUTSIDE RECORDS SUMMARY | 2024-06-18 14:29 | XMS_ITS | Encounter Summary ---
Author Organization [facility] Address [address] [place] [address] Care Team Providers Care Supervisor Finish End Name Role Phone Maricarmen Prescott MD Primary Care Provider Unava Geoffrey Guardado MD Unavailable Beatriz Talbot NP Unavailable Unavailab Beti Patrick MD Primary Care Provider [phone] Johan Griffin Primary Care Provider [phone] Nita Gutierrez ARM MAKER Unavailable [phone] Ayesha Marroquin PA-C Primary Care Provider Unavail able Encounter Details Date Type Department Care Team Description 11/19/2018 Sql Data Architect Report Medical Records [address] [place] [address] Jemima Clay MD Social History Tobacco Use Types Packs/Day [...] on filedocumented in this encounter Care Teams Supervisor Finish End Relationship Specialty Start Date End Date Maricarmen Prescott MD PCP - General 02/01/07 09/07/21 Beti Carrion MD [address] [place] [address] PCP - General Internal Medicine 10/04/21 11/20/22 Johan Griffin [address] [place] [address] [id number] PCP - General Internal Medicine 09/08/21 10/03/21 Ayesha Marroquin PA-C [address] [place] [address] PCP - General Internal Medicine 12/29/22 Geoffrey Lynn MD Specialist Cardiovascular Disease 10/20/20 Beatriz Tablot NP Specialist Cardiology 10/20/20 12/27/22 Nita Gutierrez NP [address] [place] [address] Cardiology 12/28/22 documented as of this encounter
--- OUTSIDE RECORDS SUMMARY | 2024-06-18 14:29 | XMS_ITS | Encounter Summary ---
Author Organization [facility] Address [address] [place] [address] Care Team Providers Care Chief Risk Officer Name Role Phone Maricarmen Prescott MD Primary Care Provider Unava Geoffrey Guardado MD Unavailable Beatriz Talbot NP Unavailable Unavailab Beti Patrick MD Primary Care Provider [phone] Johan Griffin Primary Care Provider [phone] Nita Gutierrez SHOTGUN SHELL LOADING MACHINE OPERATOR Unavailable [phone] Ayesha Marroquin PA-C Primary Care Provider Unavail able Encounter Details Date Type Department Care Team Description 12/05/2018 Orders Only Medicine/Pediatrics - [address] [address] Maricarmen Prescott MD Preoperative examination; Screening for deficiency anemia; parts counterman current use of anticoagulant therapy Social History Tobacco Use Types Packs/Day Years [...] as of this encounter Plan of Treatment Scheduled Orders Name Type Priority Associated Diagnoses Orde r Schedule CBC (AUTO DIFF PLATELET) Lab Routine Preoperative examination Screening for deficiency anemia Expected: 12/05/2018 (Approximate), Expires: 12/05/2019 documented as of this encounter Results * (ABNORMAL) BASIC METABOLIC PANEL (12/18/2018 3:55 PM EDT) GLUCOSE 82 70 - 100 mg/dL 12/18/2018 7:26 PM EDT [facility] Comment:Reference range appl icable to fasting specimens only Blood Urea Nitrogen 15 5 - 25 mg/dL 12/18/2018 7:26 PM EDT [facility] CREAT 0.81 0.5 - 1.1 mg/dL 12/18/2018 7:26 PM EDT [facility] GLOMERULAR FILTRATION RATE > 60 12/18/2018 7:26 PM EDT [facility] Comment: If patient is -Norwegian, multiply result by 1.21 Chronic Kidney Disease: < 60 ml/min/1.73 square meters Kidney Failure: < 15 ml/min/1.73 square meters NA 133(L) 135 - 145 mEq/L 12/18/2018 7:26 PM EDT [facility] K 4.2 3.5 - 5.5 mmol/L 12/18/2018 7:26 PM EDT [facility] CL 99 96 - 110 mmol/L 12/18/2018 7:26 PM EDT [facility] CARBON DIOXIDE (CO2) 26 21 - 32 mmol/L 12/18/2018 7:26 PM EDT [facility] ANION GAP 8 3 - 11 12/18/2018 7:26 PM EDT [facility] CALCIUM 10.1 8.5 - 10.5 mg/dL 12/18/2018 7:26 PM EDT [facility] 12/18/2018 3:55 PM EDT 12/18/2018 3:56 PM EDT Maricarmen Prescott MD LAB [facility] documented in this encounter Visit Diagnoses Diagnosis Preoperative examination Preoperative examination, unspecified Screening for deficiency anemia Screening for other and unspecified deficiency anemia parts counterman current use of anticoagulant therapy documented in this encounter Care Teams Chief Risk Officer Relationship Specialty Start Date End Date Maricarmen Prescott MD PCP - General 02/01/07 09/07/21 Beti Carrion MD [address] [place] [address] PCP - General Internal Medicine 10/04/21 11/20/22 Johan Griffin [address] [place] [address] PCP - General Internal Medicine 09/08/21 10/03/21 Ayesha Marroquin PA-C [address] [place] [address] PCP - General Internal Medicine 12/29/22 Geoffrey Lynn MD Specialist Cardiovascular Disease 10/20/20 Beatriz Talbot NP Specialist Cardiology 10/20/20 12/27/22 Nita Gutierrez NP [address] [place] [address] Cardiology 12/28/22 documented as of this encounter
--- OUTSIDE RECORDS SUMMARY | 2024-06-18 14:29 | XMS_ITS | Encounter Summary ---
Author Organization [facility] Address [address] [place] [address] Care Team Providers Care Nutrition Helper Name Role Phone Maricarmen Prescott MD Primary Care Provider Unava ilGeoffrey Hall MD Unavailable Beatriz Talbot NP Unavailable Unavailab Beti Patrick MD Primary Care Provider [phone] Johan Griffin Primary Care Provider [phone] Nita Gutierrez NP Unavailable [phone] Ayesha Marroquin PA-C Primary Care Provider Unavail able Encounter Details Date Type Department Care Team Description 06/11/2013 Eligibility Consultant Report Medical Records [address] [place] [address] Shraddha Naidu MD [address] [place] [address] [address] [place] [address] Social History Tobacco Use Types Packs/Day Years [...] on filedocumented in this encounter Care Teams Nutrition Helper Relationship Specialty Start Date End Date Maricarmen Prescott MD PCP - General 02/01/07 09/07/21 Beti Carrion MD [address] [place] [address] PCP - General Internal Medicine 10/04/21 11/20/22 Johan Griffin [address] [place] [address] PCP - General Internal Medicine 09/08/21 10/03/21 Ayesha Marroquin PA-C [address] [place] [address] PCP - General Internal Medicine 12/29/22 Geoffrey Lynn MD Specialist Cardiovascular Disease 10/20/20 Beatriz Talbot NP Specialist Cardiology 10/20/20 12/27/22 Nita Gutierrez NP [address] [place] [address] Cardiology 12/28/22 documented as of this encounter
--- OUTSIDE RECORDS SUMMARY | 2024-06-18 14:29 | XMS_ITS | Encounter Summary ---
Author Organization [facility] Address [address] [place] [address] Care Team Providers Care Exam Proctor Name Role Phone Maricarmen Prescott MD Primary Care Provider Unava Geoffrey Guardado MD Unavailable Beatriz Talbot NP Unavailable Unavailab Beti Patrick MD Primary Care Provider [phone] Johan Griffin Primary Care Provider [phone] Nita Gutierrez NP Unavailable [phone] Ayesha Marroquin PA-C Primary Care Provider Unavail able Encounter Details Date Type Department Care Team Description 05/04/2018 Business Doc Medical Records [address] [place] [address] Abstract, Provider Social History Tobacco Use Types [...] on filedocumented in this encounter Care Teams Exam Proctor Relationship Specialty Start Date End Date Maricarmen Prescott MD PCP - General 02/01/07 09/07/21 Beti Carrion MD [address] [place] [address] PCP - General Internal Medicine 10/04/21 11/20/22 Johan Griffin [address] [place] [address] PCP - General Internal Medicine 09/08/21 10/03/21 Ayesha Marroquin PA-C [address] [place] [address] PCP - General Internal Medicine 12/29/22 Geoffrey Lynn MD Specialist Cardiovascular Disease 10/20/20 Beatriz Talbot NP Specialist Cardiology 10/20/20 12/27/22 Nita Gutierrez NP [address] [place] [address] Cardiology 12/28/22 documented as of this encounter
--- OUTSIDE RECORDS SUMMARY | 2024-06-18 14:29 | XMS_ITS | Encounter Summary ---
Author Organization [facility] Address [address] [place] [address] Care Team Providers Care Workforce Staffing Advisor Name Role Phone Maricarmen Prescott MD Primary Care Provider Unava ilGeoffrey Hall MD Unavailable Beatriz Talbot POLICE MAGISTRATE Unavailable Unavailab Beti Patrick MD Primary Care Provider [phone] Johan Griffin Primary Care Provider [phone] Nita Gutierrez POLICE MAGISTRATE Unavailable [phone] Ayesha Marroquin PA-C Primary Care Provider Unavail able Encounter Details Date Type Department Care Team Description 05/19/2015 ADMINISTRATIVE OFFICE SPECIALIST/[facility] Report Medical Records [address] [place] [address] Abstract, Provider Social History Tobacco Use Types [...] on filedocumented in this encounter Care Teams Workforce Staffing Advisor Relationship Specialty Start Date End Date Maricarmen Prescott MD PCP - General 02/01/07 09/07/21 Beti Carrion MD [address] [place] [address] PCP - General Internal Medicine 10/04/21 11/20/22 Johan Griffin [address] [place] [address] PCP - General Internal Medicine 09/08/21 10/03/21 Ayesha Marroquin PA-C [address] [place] [address] PCP - General Internal Medicine 12/29/22 Geoffrey Lynn MD Specialist Cardiovascular Disease 10/20/20 Beatriz Talbot NP Specialist Cardiology 10/20/20 12/27/22 Nita Gutierrez NP [address] [place] [address] Cardiology 12/28/22 documented as of this encounter
--- OUTSIDE RECORDS SUMMARY | 2024-06-18 14:29 | XMS_ITS | Encounter Summary ---
Author Organization [facility] Address [address] [place] [address] Care Team Providers Care Hassock Maker Name Role Phone Maricarmen Prescott MD Primary Care Provider Unava Geoffrey Guardado MD Unavailable Beatriz Talbot NP Unavailable Unavailab Beti Patrick MD Primary Care Provider [phone] Johan Griffin Primary Care Provider [phone] Nita Gutierrez NP Unavailable [phone] Ayesha Marroquin PA-C Primary Care Provider Unavail able Encounter Details Date Type Department Care Team Description 12/15/2015 [facility] Medical Records [address] [place] [address] Abstract, Provider Social History Tobacco Use Types [...] on filedocumented in this encounter Care Teams Hassock Maker Relationship Specialty Start Date End Date Maricarmen Prescott MD PCP - General 02/01/07 09/07/21 Beti Carrion MD [address] [place] [address] PCP - General Internal Medicine 10/04/21 11/20/22 Johan Griffin [address] [place] [address] PCP - General Internal Medicine 09/08/21 10/03/21 Ayesha Marroquin PA-C [address] [place] [address] PCP - General Internal Medicine 12/29/22 Geoffrey Lynn MD Specialist Cardiovascular Disease 10/20/20 Beatriz Talbot NP Specialist Cardiology 10/20/20 12/27/22 Nita Gutierrez NP [address] [place] [address] Cardiology 12/28/22 documented as of this encounter
--- OUTSIDE RECORDS SUMMARY | 2024-06-18 14:29 | XMS_ITS | Encounter Summary ---
Author Organization [facility] Address [address] [place] [address] Care Team Providers Care Director Biology Name Role Phone Maricarmen Prescott MD Primary Care Provider Unava Geoffrey Guardado MD Unavailable Beatriz Talbot NP Unavailable Unavailab Beti Patrick MD Primary Care Provider [phone] Johan Griffin Primary Care Provider [phone] Nita Gutierrez FORESTER SILVICULTURE Unavailable [phone] Ayesha Marroquin PA-C Primary Care Provider Unavail able Encounter Details Date Type Department Care Team Description 01/18/2007 Hospital Medical Records [address] [place] [address] Reinier Alvarez MD Social History Tobacco Use Types Packs/Day [...] on filedocumented in this encounter Care Teams Director Biology Relationship Specialty Start Date End Date Maricarmen Prescott MD PCP - General 02/01/07 09/07/21 Beti Carrion MD [address] [place] [address] PCP - General Internal Medicine 10/04/21 11/20/22 Johan Griffin [address] [place] [address] [id number] PCP - General Internal Medicine 09/08/21 10/03/21 Ayesha Marroquin PA-C [address] [place] [address] PCP - General Internal Medicine 12/29/22 Geoffrey Lynn MD Specialist Cardiovascular Disease 10/20/20 Beatriz Talbot NP Specialist Cardiology 10/20/20 12/27/22 Nita Gutierrez NP [address] [place] [address] Cardiology 12/28/22 documented as of this encounter
--- OUTSIDE RECORDS SUMMARY | 2024-06-18 14:30 | XMS_ITS | Encounter Summary ---
Author Organization [facility] Address [address] [place] [address] Care Team Providers Care Firefighting Equipment Specialist Name Role Phone Geoffrey Lynn MD Unavailable Beatriz Talbot NP Unavailable Unavailab Beti Patrick MD Primary Care Provider [phone] Nita Gutierrez METAL FINISH INSPECTOR Unavailable [phone] Ayesha Marroquin PA-C Primary Care Provider Unavail able Encounter Details Date Type Department Care Team Description 11/26/2021 SCAN Medical Records [address] [place] [address] Kristi Contreras MD Social History Tobacco Use [...] Exposure Response Date Recorded In the last 10 days, have tianna u been in contact with someone who was confirmed or suspected to have Coronavirus/COVID-19? No / Unsure 11/17/2021 10:03 AM EDT documented as of this encounter Plan of Treatment Not on file documented as of this encounter Procedures Procedure Name Priority Date/Time Associated Diagnosis Comments OUTSIDE LAB Routine 11/26/2021 OUTSIDE LAB Routine 11/26/2021 documented in this encounter Results * OUTSIDE LAB (11/26/2021) Provider Default LAB * OUTSIDE LAB (11/26/2021) Provider Default LAB documented in this encounter Visit Diagnoses Not on filedocumented in this encounter Care Teams Firefighting Equipment Specialist Relationship Specialty Start Date End Date Beti Carrion MD [address] [place] [address] PCP - General Internal Medicine 10/04/21 11/20/22 Ayesha Marroquin PA-C [address] [place] [address] PCP - General Internal Medicine 12/29/22 Geoffrey Lynn MD Specialist Cardiovascular Disease 10/20/20 Beatriz Talbot NP Specialist Cardiology 10/20/20 12/27/22 Nita Gutierrez NP [address] [place] [address] Cardiology 12/28/22 documented as of this encounter
--- OUTSIDE RECORDS SUMMARY | 2024-06-18 14:30 | XMS_ITS | Encounter Summary ---
Author Organization [facility] Address [address] [place] [address] Care Team Providers Care Muck Boss Name Role Phone Marciarmen Prescott MD Primary Care Provider Unava Geoffrey Guardado MD Unavailable Beatriz Talbot NP Unavailable Unavailab Beti Patrick MD Primary Care Provider [phone] Johan Griffin Primary Care Provider [phone] Nita Gutierrez OTHER WOOD PROCESSING MACHINE OPERATOR Unavailable [phone] Ayesha Marroquin PA-C Primary Care Provider Unavail able Encounter Details Date Type Department Care Team Description 03/10/2019 [employer]way Car Repairer Report Medical Records [address] [place] [address] Segundo Funez MD Social History Tobacco Use Types Packs/Day [...] on filedocumented in this encounter Care Teams Muck Boss Relationship Specialty Start Date End Date Maricarmen Prescott MD PCP - General 02/01/07 09/07/21 Beti Carrion MD [address] [place] [address] PCP - General Internal Medicine 10/04/21 11/20/22 Johan Griffin [address] [place], [place] [phone] PCP - General Internal Medicine 09/08/21 10/03/21 Ayesha Marroquin PA-C [address] [place] [address] PCP - General Internal Medicine 12/29/22 Geoffrey Lynn MD Specialist Cardiovascular Disease 10/20/20 Beatriz Talbot NP Specialist Cardiology 10/20/20 12/27/22 Nita Gutierrez NP [address] [place] [address] Cardiology 12/28/22 documented as of this encounter
--- OUTSIDE RECORDS SUMMARY | 2024-06-18 14:30 | XMS_ITS | Encounter Summary ---
Author Organization [facility] Address [address] [place] [address] Care Team Providers Care Data Modeling Architect Name Role Phone Maricarmen Prescott MD Primary Care Provider Unava ilGeoffrey Hall MD Unavailable Beatriz Talbot NP Unavailable Unavailab Beti Patrick MD Primary Care Provider [phone] Johan Griffin Primary Care Provider [phone] Nita Gutierrez NP Unavailable [phone] Ayesha Marroquin PA-C Primary Care Provider Unavail able Reason for Visit * Reason Onset Date Comments REFERRAL 07/04/2016 Encounter Details Date Type Department Care Team Description 07/04/2016 Telephone [facility] [address] [place] [address] Margie Alonso FNP [address] [place] [address] REFERRAL Social History Tobacco Use Types Packs/Day Years [...] encounter Miscellaneous Notes * Telephone Encounter - Gisselle Fowler - 07/04/2016 9:34 AM EDT FYI ONLY. Pt canx 05/06/16 and 06/24/16 sleep studies. Called pt 06/27/16 with no response. I am removing this pt's order from the sleep study schedule. Order expires 03/03/17,[facility] & [facility] - No auth required 03/09/16 AQ. ESS REQ,kl. documented in this encounter Plan of Treatment Not on file documented as of this encounter Visit Diagnoses Not on filedocumented in this encounter Care Teams Data Modeling Architect Relationship Specialty Start Date End Date Maricarmen Prescott MD PCP - General 02/01/07 09/07/21 Beti Carrion MD [address] [place] [address] PCP - General Internal Medicine 10/04/21 11/20/22 Johan Griffin [address] [place] [address] PCP - General Internal Medicine 09/08/21 10/03/21 Ayesha Marroquin PA-C [address] [place] [address] PCP - General Internal Medicine 12/29/22 Geoffrey Lynn MD Specialist Cardiovascular Disease 10/20/20 Beatriz Talbot NP Specialist Cardiology 10/20/20 12/27/22 Nita Gutierrez NP [address] [place] [address] Cardiology 12/28/22 documented as of this encounter
--- OUTSIDE RECORDS SUMMARY | 2024-06-18 14:30 | XMS_ITS | Encounter Summary ---
Author Organization [facility] Address [address] [place] [address] Care Team Providers Care Manufacturing Recruiter Name Role Phone Geoffrey Lynn MD Unavailable Beatriz Talbot NP Unavailable Unavailab Beti Patrick MD Primary Care Provider [phone] Nita Gutierrez AOC AADC OPERATIONS STAFF OFFICER Unavailable [phone] Ayesha Marroquin PA-C Primary Care Provider Unavail able Encounter Details Date Type Department Care Team Description 12/17/2021 Capacity Analyst Report Medical Records [address] [place] [address] Segundo Funez MD Social History Tobacco Use [...] Recorded In the last 10 days, have yo u been in contact with someone who was confirmed or suspected to have Coronavirus/COVID-19? No / Unsure 11/17/2021 10:03 AM EDT documented as of this encounter Plan of Treatment Not on file documented as of this encounter Visit Diagnoses Not on filedocumented in this encounter Care Teams Manufacturing Recruiter Relationship Specialty Start Date End Date Beti Carrion MD [address] [place] [address] PCP - General Internal Medicine 10/04/21 11/20/22 Ayesha Marroquin PA-C [address] [place] [address] PCP - General Internal Medicine 12/29/22 Geoffrey Lynn MD Specialist Cardiovascular Disease 10/20/20 Beatriz Talbot NP Specialist Cardiology 10/20/20 12/27/22 Nita Gutierrez NP [address] [place] [address] Cardiology 12/28/22 documented as of this encounter
--- OUTSIDE RECORDS SUMMARY | 2024-06-18 14:30 | XMS_ITS | Encounter Summary ---
Author Organization [facility] Address [address] [place] [address] Care Team Providers Care Electric Serviceman Name Role Phone Maricarmen Prescott MD Primary Care Provider Unava ilGeoffrey Hall MD Unavailable Beatriz Talbot NP Unavailable Unavailab Beti Patrick MD Primary Care Provider [phone] Johan Griffin Primary Care Provider [phone] Nita Gutierrez DYE FEEDER Unavailable [phone] Ayesha Marroquin PA-C Primary Care Provider Unavail able Encounter Details Date Type Department Care Team Description 02/23/2021 Orders Only Medical Records [address] [place] [address] Genny Grossman MD Social History Tobacco Use [...] have Coronavirus / COVID-19? No / Unsure 02/01/2021 12:30 PM EST documented as of this encounter Plan of Treatment Not on file documented as of this encounter Procedures Procedure Name Priority Date/Time Associated Diagnosis Comments OUTSIDE PATHOLOGY Routine 02/18/2021 documented in this encounter Results * OUTSIDE PATHOLOGY (02/18/2021) Genny Grossman MD OUTSIDE LAB documented in this encounter Visit Diagnoses Not on filedocumented in this encounter Care Teams Electric Serviceman Relationship Specialty Start Date End Date Maricarmen Prescott MD PCP - General 02/01/07 09/07/21 Beti Carrion MD [address] [place] [address] PCP - General Internal Medicine 10/04/21 11/20/22 Johan Griffin [address] [place] [address] PCP - General Internal Medicine 09/08/21 10/03/21 Ayesha Marroquin PA-C [address] [place] [address] PCP - General Internal Medicine 12/29/22 Geoffrey Lynn MD Specialist Cardiovascular Disease 10/20/20 Beatriz Talbot NP Specialist Cardiology 10/20/20 12/27/22 Nita Gutierrez NP [address] [place] [address] Cardiology 12/28/22 documented as of this encounter
--- OUTSIDE RECORDS SUMMARY | 2024-06-18 14:30 | XMS_ITS | Encounter Summary ---
Author Organization [facility] Address [address] [place] [address] Care Team Providers Care Mobility Developer Name Role Phone Maricarmen Prescott MD Primary Care Provider Unava Geoffrey Guardado MD Unavailable Beatriz Talbot NP Unavailable Unavailab Beti Patrick MD Primary Care Provider [phone] Johan Griffin Primary Care Provider [phone] Nita Gutierrez STABILIZING MACHINE OPERATOR Unavailable [phone] Ayesha Marroquin PA-C Primary Care Provider Unavail able Encounter Details Date Type Department Care Team Description 01/08/2019 Hospital Medical Records [address] [place] [address] Jemima Clay MD Social History Tobacco Use [...] on filedocumented in this encounter Care Teams Mobility Developer Relationship Specialty Start Date End Date Maricarmen Prescott MD PCP - General 02/01/07 09/07/21 Beti Carrion MD [address] [place] [address] PCP - General Internal Medicine 10/04/21 11/20/22 Johan Griffin [address] [place], [place] [phone] PCP - General Internal Medicine 09/08/21 10/03/21 Ayesha Marroquin PA-C [address] [place] [address] PCP - General Internal Medicine 12/29/22 Geoffrey Lynn MD Specialist Cardiovascular Disease 10/20/20 Beatriz Talbot NP Specialist Cardiology 10/20/20 12/27/22 Nita Gutierrez NP [address] [place] [address] Cardiology 12/28/22 documented as of this encounter
--- OUTSIDE RECORDS SUMMARY | 2024-06-18 14:30 | XMS_ITS | Encounter Summary ---
Author Organization [facility] Address [address] [place] [address] Care Team Providers Care Chemical Plant Technical Director Name Role Phone Maricarmen Prescott MD Primary Care Provider Unava Geoffrey Guardado MD Unavailable Beatriz Talbot NP Unavailable Unavailab Beti Patrick MD Primary Care Provider [phone] Johan Griffin Primary Care Provider [phone] Nita Gutierrez NP Unavailable [phone] Ayesha Marroquin PA-C Primary Care Provider Unavail able Encounter Details Date Type Department Care Team Description 06/25/2021 SCAN Medical Records [address] [place] [address] Abstract, Provider Social History Tobacco Use Types [...] Date/Time Associated Diagnosis Comments OUTSIDE LAB Routine 06/25/2021 documented in this encounter Results * OUTSIDE LAB (06/25/2021) Provider Abstract LAB documented in this encounter Visit Diagnoses Not on filedocumented in this encounter Care Teams Chemical Plant Technical Director Relationship Specialty Start Date End Date Maricarmen Prescott MD PCP - General 02/01/07 09/07/21 Beti Carrion MD [address] [place] [address] PCP - General Internal Medicine 10/04/21 11/20/22 Johan Griffin [address] [place] [address] PCP - General Internal Medicine 09/08/21 10/03/21 Ayesha Marroquin PA-C [address] [place] [address] PCP - General Internal Medicine 12/29/22 Geoffrey Lynn MD Specialist Cardiovascular Disease 10/20/20 Beatriz Talbot NP Specialist Cardiology 10/20/20 12/27/22 Nita Gutierrez NP [address] [place] [address] Cardiology 12/28/22 documented as of this encounter
--- OUTSIDE RECORDS SUMMARY | 2024-06-18 14:30 | XMS_ITS | Encounter Summary ---
Author Organization [facility] Address [address] [place] [address] Care Team Providers Care Dryer And Washer Mechanic Name Role Phone Geoffrey Lynn MD Unavailable Beatriz Talbot NP Unavailable Unavailab Beti Patrick MD Primary Care Provider [phone] Nita Gutierrez SHIRT SEWER Unavailable [phone] Ayesha Marroquin PA-C Primary Care Provider Unavail able Reason for Visit * Reason Onset Date Comments other 12/03/2021 chest tightness, sob,ECHO results Encounter Details Date Type Department Care Team Description 12/03/2021 Telephone Cardio PVCA Diag Testing [address] [facility] [address] [place] [address] Geoffrey Lynn MD [address] [place] [address] other (chest tightness,sob,ECHO results) Social History Tobacco Use Types Packs/Day Years [...] AM EDT documented as of this encounter Miscellaneous Notes * Telephone Encounter - Wanda Landeros C.M.A. - 12/22/2021 2:51 PM EDT I spoke with patient and she stated that she never got the call from triage. But she is still having chest tightness and SOB at times. Although she thinks it is her GERD. I did review with her that she has an appointment with BAL tomorrow and she said she will be able to make it. * Telephone Encounter - Wanda Landeros C.M.A. - 12/22/2021 1:55 PM EDT Triage never heard back from the patient. I reached out and LVM with her to return my call. * Telephone Encounter - Celia Dinh RN - 12/03/2021 2:08 PM EDT LVM, awaiting call back. SRUTHI has had 7 no shows since 2016 including today. * Telephone Encounter - Petar Mejias - 12/03/2021 1:58 PM EDT Patient had a 1:40 appointment today with Beatriz Maldonado, was unable to make it. Added patient to cancellist. Patient did want to report as of the last few months,she has been experiencing chest tightness especially at night and easily winded,shortness of breath when walking her dogs. Patient is also looking for ECHO results from 09/09/21 as she is very anxious regarding them. Please give patient a call at [phone] documented in this encounter Plan of Treatment Not on file documented as of this encounter Visit Diagnoses Not on filedocumented in this encounter Care Teams Dryer And Washer Mechanic Relationship Specialty Start Date End Date Beti Carrion MD [address] [place] [address] PCP - General Internal Medicine 10/04/21 11/20/22 Ayesha Marroquin PA-C [address] [place] [address] PCP - General Internal Medicine 12/29/22 Geoffrey Lynn MD Specialist Cardiovascular Disease 10/20/20 Beatriz Talbot NP Specialist Cardiology 10/20/20 12/27/22 Nita Gutierrez NP [address] [place] [address] Cardiology 12/28/22 documented as of this encounter
--- OUTSIDE RECORDS SUMMARY | 2024-06-18 14:30 | XMS_ITS | Encounter Summary ---
Author Organization [facility] Address [address] [place] [address] Care Team Providers Care Gis Analyst Name Role Phone Maricarmen Prescott MD Primary Care Provider Unava Geoffrey Guardado MD Unavailable Beatriz Talbot NP Unavailable Unavailab Beti Patrick MD Primary Care Provider [phone] Johan Griffin Primary Care Provider [phone] EQUIPMENT OPERATOR Unavailable [phone] Ayesha Marroquin PA-C Primary Care Provider Unavail able Encounter Details Date Type Department Care Team Description 09/24/2018 Electrocardiograph Repairer Report Medical Records [address] [place] [address] Neurological, [place] Social History Tobacco Use Types Packs/Day Years [...] on filedocumented in this encounter Care Teams Gis Analyst Relationship Specialty Start Date End Date Maricarmen Prescott MD PCP - General 02/01/07 09/07/21 Beti Carrion MD [address] [place] [address] PCP - General Internal Medicine 10/04/21 11/20/22 Johan Griffin [address] [place] [address] PCP - General Internal Medicine 09/08/21 10/03/21 Ayesha Marroquin PA-C [address] [place] [address] PCP - General Internal Medicine 12/29/22 Geoffrey Lynn MD Specialist Cardiovascular Disease 10/20/20 Beatriz Talbot NP Specialist Cardiology 10/20/20 12/27/22 Nita Gutierrez NP [address] [place] [address] Cardiology 12/28/22 documented as of this encounter
--- OUTSIDE RECORDS SUMMARY | 2024-06-18 14:30 | XMS_ITS | Encounter Summary ---
Author Organization [facility] Address [address] [place] [address] Care Team Providers Care Health Economist Name Role Phone Maricarmen Prescott MD Primary Care Provider Unava Geoffrey Guardado MD Unavailable Beatriz Talbot NP Unavailable Unavailab Beti Patrick MD Primary Care Provider [phone] Johan Griffin Primary Care Provider [phone] Nita Gutierrez NP Unavailable [phone] Ayesha Marroquin PA-C Primary Care Provider Unavail able Encounter Details Date Type Department Care Team Description 06/18/2021 [facility] Medical Records [address] [place] [address] Social History Tobacco Use Types Packs/Day Years [...] filedocumented in this encounter Care Teams Health Economist Relationship Specialty Start Date End Date Maricarmen Prescott MD PCP - General 02/01/07 09/07/21 Beti Carrion MD [address] [place] [address] PCP - General Internal Medicine 10/04/21 11/20/22 Johan Griffin [address] [place] [address] PCP - General Internal Medicine 09/08/21 10/03/21 Ayesha Marroquin PA-C [address] [place] [address] PCP - General Internal Medicine 12/29/22 Geoffrey Lynn MD Specialist Cardiovascular Disease 10/20/20 Beatriz Talbot NP Specialist Cardiology 10/20/20 12/27/22 Nita Gutierrez NP [address] [place] [address] Cardiology 12/28/22 documented as of this encounter
--- OUTSIDE RECORDS SUMMARY | 2024-06-18 14:30 | XMS_ITS | Encounter Summary ---
Author Organization [facility] Address [address] [place] [address] Care Team Providers Care Life Insurance Agent Name Role Phone Maricarmen Prescott MD Primary Care Provider Unava Geoffrey Guardado MD Unavailable Beatriz Talbot NP Unavailable Unavailab Beti Patrick MD Primary Care Provider [phone] Johan Griffin Primary Care Provider [phone] Nita Gutierrez NP Unavailable [phone] Ayesha Marorquin PA-C Primary Care Provider Unavail able Encounter Details Date Type Department Care Team Description 02/07/2019 [facility] Medical Records [address] [place] [address] Abstract, Provider Social History Tobacco Use Types [...] on filedocumented in this encounter Care Teams Life Insurance Agent Relationship Specialty Start Date End Date Maricarmen Prescott MD PCP - General 02/01/07 09/07/21 Beti Carrion MD [address] [place] [address] PCP - General Internal Medicine 10/04/21 11/20/22 Johan Griffin [address] [place] [address] PCP - General Internal Medicine 09/08/21 10/03/21 Ayesha Marroquin PA-C [address] [place] [address] PCP - General Internal Medicine 12/29/22 Geoffrey Lynn MD Specialist Cardiovascular Disease 10/20/20 Beatriz Talbot NP Specialist Cardiology 10/20/20 12/27/22 Nita Gutierrez NP [address] [place] [address] Cardiology 12/28/22 documented as of this encounter
--- OUTSIDE RECORDS SUMMARY | 2024-06-18 14:30 | XMS_ITS | Encounter Summary ---
Author Organization [facility] Address [address] [place] [address] Care Team Providers Care Wool Classer Name Role Phone Geoffrey Lynn MD Unavailable Beatriz Talbot NP Unavailable Unavailab Beti Patrick MD Primary Care Provider [phone] Nita Gutierrez NP Unavailable [phone] Ayesha Marroquin PA-C Primary Care Provider Unavail able Encounter Details Date Type Department Care Team Description 12/23/2021 [facility] Medical Records [address] [place] [address] Abstract, Provider Social History Tobacco Use Types [...] suspected to have Coronavirus/COVID-19? No / Unsure 12/23/2021 10:53 AM EDT documented as of this encounter Plan of Treatment Not on file documented as of this encounter Visit Diagnoses Not on filedocumented in this encounter Care Teams Wool Classer Relationship Specialty Start Date End Date Beti Carrion MD [address] [place] [address] PCP - General Internal Medicine 10/04/21 11/20/22 Ayesha Marroquin PA-C [address] [place] [address] PCP - General Internal Medicine 12/29/22 Geoffrey Lynn MD Specialist Cardiovascular Disease 10/20/20 Beatriz Talbot NP Specialist Cardiology 10/20/20 12/27/22 Nita Gutierrez NP [address] [place] [address] Cardiology 12/28/22 documented as of this encounter
--- OUTSIDE RECORDS SUMMARY | 2024-06-18 14:30 | XMS_ITS | Encounter Summary ---
Author Organization [facility] Address [address] [place] [address] Care Team Providers Care Vp Account Director Name Role Phone Geoffrey Lynn MD Unavailable Beatriz Talbot NP Unavailable Unavailab Beti Patrick MD Primary Care Provider [phone] Nita Gutierrez OPEN HEARTH WORKER Unavailable [phone] Ayesha Marroquin PA-C Primary Care Provider Unavail able Reason for Visit * Reason Comments E-prescribe Rx Request Encounter Details Date Type Department Care Team Description 12/27/2021 Refill Adult Medicine [address] [phone] Beti Carrion MD [address] [place] [address] [id number] E-prescribe Rx Request Social History Tobacco Use [...] Miscellaneous Notes * Telephone Encounter - Gisselle Oliveira M.A. - 12/28/2021 8:36 AM EDT Lab Results Component Value Date NA 133 08/16/2021 K 4.2 08/16/2021 CO2 27 08/16/2021 CL 99 08/16/2021 BUN 9 08/16/2021 CREAT 0.64 08/16/2021 GLU 93 08/16/2021 CA 9.5 08/16/2021 GFR > 60 08/16/2021 Last appt with pcp 11/17/21 * Telephone Encounter - Annette Arcos - 12/27/2021 5:33 PM EDT Patient would like script to be: E-PRESCRIBED/FAXED TO PHARMACY ?? WHEN WAS THE PATIENT'S LAST APPOINTMENT IN ADULT MEDICINE? 11/17/21 ?? WHEN WAS THE LAST TIME THE PATIENT SAW THEIR PCP? Same as above ?? Does patient have an upcoming appointment? Yes 01/31/22 ?? (THE MEDICATION REQUESTED IS ON THE MED LIST ABOVE) All of the medications requested were on the CURRENT MEDS list ?? Did you check the Pharmacy information above?: YES ?? Patient wants: 90 -day supply ?? Is this a mail order prescription request ? NO ?? If the refill is from a FAXED refill request what is the RX # listed on the fax? N/A ?? Patients current insurance carrier is: Pay[place] / Plan: [place] / Product Type: MEDICARE [id number] ?? documented in this encounter Plan of Treatment Not on file documented as of this encounter Visit Diagnoses Not on filedocumented in this encounter Care Teams Vp Account Director Relationship Specialty Start Date End Date Beti Carrion MD [address] [place] [address] PCP - General Internal Medicine 10/04/21 11/20/22 Ayesha Marroquin PA-C [address] [place] [address] PCP - General Internal Medicine 12/29/22 Geoffrey Lynn MD Specialist Cardiovascular Disease 10/20/20 Beatriz Talbot NP Specialist Cardiology 10/20/20 12/27/22 Nita Gutierrez NP [address] [place] [address] Cardiology 12/28/22 documented as of this encounter
--- OUTSIDE RECORDS SUMMARY | 2024-06-18 14:30 | XMS_ITS | Encounter Summary ---
Author Organization [facility] Address [address] [place] [address] Care Team Providers Care Food And Beverage Checker Name Role Phone Maricarmen Prescott MD Primary Care Provider Unava Geoffrey Guardado MD Unavailable Beatriz Talbot NP Unavailable Unavailab Beti Patrick MD Primary Care Provider [phone] Johan Griffin Primary Care Provider [phone] Nita Gutierrez NP Unavailable [phone] Ayesha Marroquin PA-C Primary Care Provider Unavail able Encounter Details Date Type Department Care Team Description 12/12/2018 [facility] Medical Records [address] [place] [address] Abstract, Provider Social History Tobacco Use Types [...] on filedocumented in this encounter Care Teams Food And Beverage Checker Relationship Specialty Start Date End Date Maricarmen Prescott MD PCP - General 02/01/07 09/07/21 Beti Carrion MD [address] [place] [address] PCP - General Internal Medicine 10/04/21 11/20/22 Johan Griffin [address] [place] [address] PCP - General Internal Medicine 09/08/21 10/03/21 Ayesha Marroquin PA-C [address] [place] [address] PCP - General Internal Medicine 12/29/22 Geoffrey Lynn MD Specialist Cardiovascular Disease 10/20/20 Beatriz Talbot NP Specialist Cardiology 10/20/20 12/27/22 Nita Gutierrez NP [address] [place] [address] Cardiology 12/28/22 documented as of this encounter
--- OUTSIDE RECORDS SUMMARY | 2024-06-18 14:30 | XMS_ITS | Encounter Summary ---
Author Organization [facility] Address [address] [place] [address] Care Team Providers Care Physician Assistant Primary Care Name Role Phone Maricarmen Prescott MD Primary Care Provider Unava Geoffrey Guardado MD Unavailable Beatriz Talbot NP Unavailable Unavailab Beti Patrick MD Primary Care Provider [phone] Johan Griffin Primary Care Provider [phone] Nita Gutierrez BASIC COMBATANT SWIMMER Unavailable [phone] Ayesha Marroquin PA-C Primary Care Provider Unavail able Reason for Visit * Reason Onset Date Comments loss of appetite 07/07/2021 Blood Pressure Low 07/07/2021 Encounter Details Date Type Department Care Team Description 07/07/2021 Telephone Adult Medicine [address] [phone] Maricarmen Prescott MD loss of appetite; Blood Pressure Low Social History Tobacco Use Types Packs/Day Years [...] encounter Miscellaneous Notes * Telephone Encounter - Miroslava Cheney M.A. - 07/07/2021 3:07 PM EDT Medical Record printed, placed NS for provider visit * Telephone Encounter - Nita Orellana L.P.N. - 07/07/2021 1:18 PM EDT Spoke with pt she is very tired Hip replacement 2 weeks ago she has a fu apt with ortho tomorrow Had 2 blood transfusions Has a metallic taste in her mouth Was anemic and stayed in the hosp Pt states she does not remember what her BP was on Monday when [facility] was there Pt discharged herself from the A Pt sound good on the phone To go to er Pt agrees hosp fu also booked [facility] hip replacement 07/16/2021 * Telephone Encounter - Iliana Wahl Vargas - 07/07/2021 11:54 AM EDT Symptoms patient is presenting: Dry mouth, loss of appetite, bp low, metalic taste in patient's mouth For ALL patients calling to schedule any appointment (routine, sick visit, follow up, consult, etc.) in the outpatient setting please ask the following questions: ?? Do you have fever of higher than 101, sore throat with difficulty swallowing or severe shortnessof breath? NO If YES to any of these above symptoms, send a message to triage and do not book. Red dot. If no, an audio or video visit should be booked. ?? Have you had close contact with someone with Coronavirus in the last 14 days? NO ?? Have you traveled abroad? NO ?? Have you traveled recently to another state outside of [place], [place], [place], [place], [place], [place], [place]? NO o If yes, did you quarantine for 14 days or have a negative covid test? NO If yes to any of the above, patient is not to be scheduled in office until after 14 day quarantine or negative covid test. If pain or injury related was it due to an accident at work or from a motor vehicle accident? NO If yes, gather 3rd republican insurance information Date of accident/Injury: How long has patient had these symptoms?: 2 days PCP: Maricarmen Prescott [place] / Plan[place] / Product Type: MEDICARE [id number] documented in this encounter Plan of Treatment Not on file documented as of this encounter Visit Diagnoses Not on filedocumented in this encounter Care Teams Physician Assistant Primary Care Relationship Specialty Start Date End Date Maricarmen Prescott MD PCP - General 02/01/07 09/07/21 Beti Carrion MD [address] [place] [address] PCP - General Internal Medicine 10/04/21 11/20/22 Johan Griffin [address] [place] [address] PCP - General Internal Medicine 09/08/21 10/03/21 Ayesha Marroquin PA-C [address] [place] [address] PCP - General Internal Medicine 12/29/22 Geoffrey Lynn MD Specialist Cardiovascular Disease 10/20/20 Beatriz Talbot NP Specialist Cardiology 10/20/20 12/27/22 Nita Gutierrez NP [address] [place] [address] Cardiology 12/28/22 documented as of this encounter
--- OUTSIDE RECORDS SUMMARY | 2024-06-18 14:30 | XMS_ITS | Encounter Summary ---
Author Organization [facility] Address [address] [place] [address] Care Team Providers Care Teletype Installer Name Role Phone Maricarmen Prescott MD Primary Care Provider Unava Geoffrey Guardado MD Unavailable Beatriz Talbot SUPPLY CHAIN PLANNER Unavailable Unavailab Beti Patrick MD Primary Care Provider [phone] Johan Griffin Primary Care Provider [phone] Nita Gutierrez SUPPLY CHAIN PLANNER Unavailable [phone] Ayesha Marroquin PA-C Primary Care Provider Unavail able Encounter Details Date Type Department Care Team Description 06/04/2010 Vacuum Furnace Operator Report Medical Records [address] [place] [address] Johnathan Revelse Social History Tobacco Use Types Packs/Day Years [...] on filedocumented in this encounter Care Teams Teletype Installer Relationship Specialty Start Date End Date Maricarmen Prescott MD PCP - General 02/01/07 09/07/21 Beti Carrion MD [address] [place] [address] PCP - General Internal Medicine 10/04/21 11/20/22 Johan Griffin [address] [place] [address] PCP - General Internal Medicine 09/08/21 10/03/21 Ayesha Marroquin PA-C [address] [place] [address] PCP - General Internal Medicine 12/29/22 Geoffrey Lynn MD Specialist Cardiovascular Disease 10/20/20 Beatriz Talbot NP Specialist Cardiology 10/20/20 12/27/22 Nita Gutierrez NP [address] [place] [address] Cardiology 12/28/22 documented as of this encounter
--- OUTSIDE RECORDS SUMMARY | 2024-06-18 14:30 | XMS_ITS | Encounter Summary ---
Author Organization [facility] Address [address] [place] [address] Care Team Providers Care Fountain Pen Turner Name Role Phone Maricarmen Prescott MD Primary Care Provider Unava Geoffrey Guardado MD Unavailable Beatriz Talbot MAIL ROOM CLERK Unavailable Unavailab Beti Patrick MD Primary Care Provider [phone] Johan Griffin Primary Care Provider [phone] Nita Gutierrez MAIL ROOM CLERK Unavailable [phone] Ayesha Marroquin PA-C Primary Care Provider Unavail able Encounter Details Date Type Department Care Team Description 08/05/2013 Stair Builder Report Medical Records [address] [place] [address] Hever Foster MD Social History Tobacco Use Types Packs/Day [...] on filedocumented in this encounter Care Teams Fountain Pen Turner Relationship Specialty Start Date End Date Maricarmen Prescott MD PCP - General 02/01/07 09/07/21 Beti Carrion MD [address] [place] [address] PCP - General Internal Medicine 10/04/21 11/20/22 Johan Griffin [address] [place] [address] PCP - General Internal Medicine 09/08/21 10/03/21 Ayesha Marroquin PA-C [address] [place] [address] PCP - General Internal Medicine 12/29/22 Geoffrey Lynn MD Specialist Cardiovascular Disease 10/20/20 Beatriz Talbot NP Specialist Cardiology 10/20/20 12/27/22 Nita Gutierrez NP [address] [place] [address] Cardiology 12/28/22 documented as of this encounter
--- OUTSIDE RECORDS SUMMARY | 2024-06-18 14:30 | XMS_ITS | Encounter Summary ---
Author Organization [facility] Address [address] [place] [address] Care Team Providers Care Aeronautical Research Engineer Name Role Phone Maricarmen Prescott MD Primary Care Provider Unava Geoffrey Guardado MD Unavailable Beatriz Talbot NP Unavailable Unavailab Beti Patrick MD Primary Care Provider [phone] Johan Griffin Primary Care Provider [phone] Nita Gutierrez NP Unavailable [phone] Ayesha Marroquin PA-C Primary Care Provider Unavail able Encounter Details Date Type Department Care Team Description 03/20/2017 [facility] Medical Records [address] [place] [address] Abstract, Provider Social History Tobacco Use Types [...] on filedocumented in this encounter Care Teams Aeronautical Research Engineer Relationship Specialty Start Date End Date Maricarmen Prescott MD PCP - General 02/01/07 09/07/21 Beti Carrion MD [address] [place] [address] PCP - General Internal Medicine 10/04/21 11/20/22 Johan Griffin [address] [place] [address] PCP - General Internal Medicine 09/08/21 10/03/21 Ayesha Marroquin PA-C [address] [place] [address] PCP - General Internal Medicine 12/29/22 Geoffrey Lynn MD Specialist Cardiovascular Disease 10/20/20 Beatriz Talbot NP Specialist Cardiology 10/20/20 12/27/22 Nita Gutierrez NP [address] [place] [address] Cardiology 12/28/22 documented as of this encounter
--- OUTSIDE RECORDS SUMMARY | 2024-06-18 14:30 | XMS_ITS | Clinical Summary ---
Author Organization [facility] Facility Address [address] [address] Care Team Providers Care Garden Center Manager Name Role Phone Ayesha Marroquin PA-C Primary [...] 11/30/2020, 12/13/2019, Additional history exists Pneumococcal Vaccine: 50+ Years Completed 12/23/2015, 11/26/2010 Hepatitis B Vaccine Aged Out No longe r eligible based on patient's age to complete this topic Insurance Medicare Medicaid [place] Care Teams Garden Center Manager Relationship Specialty Start Date End Date Ayesha Marroquin PA-C [address] [place] [address] PCP - General Physician Charge Attendant 08/23/23
--- OUTSIDE RECORDS SUMMARY | 2024-06-18 14:30 | XMS_ITS | Encounter Summary ---
Author Organization [facility] Address [address] [place] [address] Care Team Providers Care Screen Printing Machine Operator Helper Name Role Phone Maricarmen Prescott MD Primary Care Provider Unava ilable Geoffrey Lynn MD Unavailable Beatriz Talbot NP Unavailable Unavailab Beti Patrick MD Primary Care Provider [phone] Johan Griffin Primary Care Provider [phone] Nita Gutierrez PRESCHOOL TEACHER ASSISTANT Unavailable [phone] Ayesha Marroquin PA-C Primary Care Provider Unavail able Reason for Referral * Specialist (Routine) - Authorized/Booked Specialty Diagnoses / Procedures Referred By Contact Referred To Contact ORTHOPEDICS / Orthopedic Procedures REFERRAL TO ORTHOPEDICS Maricarmen Prescott MD [address] [place] [address] External Orthopedics Referral ID Status Reason Start Date Expiration Date V isits Requested Visits Authorized SEE REVIEW 08/14/13 Authorized/ Booked 08/13/2013 11/13/2013 1 1 Reason for Visit * Reason Onset Date Comments Hip Pain 08/13/2013 Encounter Details Date Type Department Care Team Description 08/13/2013 Telephone Medicine/Pediatrics - [address] [phone] Maricarmen Prescott MD Hip Pain Social History Tobacco Use Types Packs/Day Years [...] encounter Miscellaneous Notes * Telephone Encounter - Maryuri Lee - 08/19/2013 2:40 PM EDT Who approved the Authorization, there is no authorization # listed. Referrals has not been notifiedof authorization # at this time I will contact [place] to see status on request and verify for authorization. * Telephone Encounter - Maricarmen Prescott MD - 08/18/2013 11:34 PM EDT Noted. They approved out of network as she had pain in the knee and [facility] had done the knee surgery. * Telephone Encounter - Jerilyn Farris L.P.NBrennan - 08/13/2013 2:[address] Mccurdy signed referral In Dr prescott absence Patient notified * Telephone Encounter - Simon Mccurdy MD - 08/13/2013 2:34 PM EDT Referral placed but I cannot guarantee that her insurance will give approval for further followup and surgery with [facility]. * Telephone Encounter - Jerilyn SteeleP.NBrennan - 08/13/2013 2:28 PM EDT Received the notes from [facility] not sure if the referral can be signed prior to Dr Prescott return, flagged the note Can you please review to Dr Matthias Mccurdy * Telephone Encounter - Jerilyn Farris L.P.N. - 08/13/2013 1:42 PM EDT Spoke with patient , she is tearful, she has sen Dr Foster at [facility], he advises R total hip replacement [facility], Bone on bone ,[facility] is out of network for patient Call to [facility] for last 3 notes to be faxed over T [phone] Will ask another provider to review for out of network referral But may mihaela to wait for PCP review on 08/19 , Patient is aware * Telephone Encounter - Sai Baeza - 08/13/2013 1:29 PM EDT Pt called and would really like to speak to a nurse otr Dr. Prescott about her ongoing hip issue. Shewas told by [facility] that her hips are really bad and she would need surgeryT the only surgeon she wants working on her is out of her network for insurance. She was told to call to speak to her PCP and explain her situation to see if can advocate for her. Please call. documented in this encounter Plan of Treatment Not on file documented as of this encounter Visit Diagnoses Not on filedocumented in this encounter Care Teams Screen Printing Machine Operator Helper Relationship Specialty Start Date End Date Maricarmen Prescott MD PCP - General 02/01/07 09/07/21 Beti Carrion MD [address] [place] [address] PCP - General Internal Medicine 10/04/21 11/20/22 Johan Griffin [address] [place] [address] PCP - General Internal Medicine 09/08/21 10/03/21 Ayesha Marroquin PA-C [address] [place] [address] PCP - General Internal Medicine 12/29/22 Geoffrey Lynn MD Specialist Cardiovascular Disease 10/20/20 Beatriz Talbot NP Specialist Cardiology 10/20/20 12/27/22 Nita Gutierrez NP [address] [place] [address] Cardiology 12/28/22 documented as of this encounter
--- OUTSIDE RECORDS SUMMARY | 2024-06-18 14:30 | XMS_ITS | Encounter Summary ---
Author Organization [facility] Address [address] [place] [address] Care Team Providers Care Rolling Attendant Name Role Phone Maricarmen Prescott MD Primary Care Provider Unava ilGeoffrey Hall MD Unavailable Beatriz Talbot NP Unavailable Unavailab Beti Patrick MD Primary Care Provider [phone] Johan Griffin Primary Care Provider [phone] Nita Gutierrez NP Unavailable [phone] Ayesha Marroquin PA-C Primary Care Provider Unavail able Encounter Details Date Type Department Care Team Description 09/06/2010 Hospital Medical Records [address] [place] [address] Brandon Pimentel MD [address] [place] [address] Social History Tobacco Use Types Packs/Day Years [...] on filedocumented in this encounter Care Teams Rolling Attendant Relationship Specialty Start Date End Date Maricarmen Prescott MD PCP - General 02/01/07 09/07/21 Beti Carrion MD [address] [place] [address] PCP - General Internal Medicine 10/04/21 11/20/22 Johan Griffin [address] [place] [address] PCP - General Internal Medicine 09/08/21 10/03/21 Ayesha Marroquin PA-C [address] [place] [address] PCP - General Internal Medicine 12/29/22 Geoffrey Lynn MD Specialist Cardiovascular Disease 10/20/20 Beatriz Talbot NP Specialist Cardiology 10/20/20 12/27/22 Nita Gutierrez NP [address] [place] [address] Cardiology 12/28/22 documented as of this encounter
--- OUTSIDE RECORDS SUMMARY | 2024-06-18 14:30 | XMS_ITS | Encounter Summary ---
Author Organization [facility] Address [address] [place] [address] Care Team Providers Care Property Handler Name Role Phone Maricarmen Prescott MD Primary Care Provider Unava Geoffrey Guardado MD Unavailable Beatriz Talbot NP Unavailable Unavailab Beti Patrick MD Primary Care Provider [phone] Johan Griffin Primary Care Provider [phone] Nita Gutierrez NP Unavailable [phone] Ayesha Marroquin PA-C Primary Care Provider Unavail able Encounter Details Date Type Department Care Team Description 12/28/2020 Pet Store Merchandiser Report Medical Records [address] [place] [address] Neurosurgery, [address] [place] [address] Social History Tobacco Use Types Packs/Day Years [...] have Coronavirus / COVID-19? No / Unsure 11/30/2020 1:24 PM EDT documented as of this encounter Plan of Treatment Not on file documented as of this encounter Visit Diagnoses Not on filedocumented in this encounter Care Teams Property Handler Relationship Specialty Start Date End Date Maricarmen Prescott MD PCP - General 02/01/07 09/07/21 Beti Carrion MD [address] [place], [place] [phone] PCP - General Internal Medicine 10/04/21 11/20/22 Johan Griffin [address] [place], [place] [phone] PCP - General Internal Medicine 09/08/21 10/03/21 Ayesha Marroquin PA-C [address] [place] [address] PCP - General Internal Medicine 12/29/22 Geoffrey Lynn MD Specialist Cardiovascular Disease 10/20/20 Beatriz Talbot NP Specialist Cardiology 10/20/20 12/27/22 Nita Gutierrez NP [address] [place], [place] [phone] Cardiology 12/28/22 documented as of this encounter
--- OUTSIDE RECORDS SUMMARY | 2024-06-18 14:30 | XMS_ITS | Encounter Summary ---
Author Organization [facility] Address [address] [place] [address] Care Team Providers Care Contact Center Engineer Name Role Phone Maricarmen Prescott MD Primary Care Provider Unava Geoffrey Guardado MD Unavailable Beatriz Talbot SITE MONITOR Unavailable Unavailab Beti Patrick MD Primary Care Provider [phone] Johan Griffin Primary Care Provider [phone] Nita Gutierrez SITE MONITOR Unavailable [phone] Ayesha Marroquin PA-C Primary Care Provider Unavail able Encounter Details Date Type Department Care Team Description 11/25/2011 Controlled Substance Contract with Plan Medical Records [address] [place] [address] Abstract, Provider Social History Tobacco Use Types [...] on filedocumented in this encounter Care Teams Contact Center Engineer Relationship Specialty Start Date End Date Maricarmen Prescott MD PCP - General 02/01/07 09/07/21 Beti Carrion MD [address] [place] [address] PCP - General Internal Medicine 10/04/21 11/20/22 Johan Griffin [address] [place] [address] PCP - General Internal Medicine 09/08/21 10/03/21 Ayesha Marroquin PA-C [address] [place] [address] PCP - General Internal Medicine 12/29/22 Geoffrey Lynn MD Specialist Cardiovascular Disease 10/20/20 Beatriz Talbot NP Specialist Cardiology 10/20/20 12/27/22 Nita Gutierrez NP [address] [place] [address] Cardiology 12/28/22 documented as of this encounter
--- OUTSIDE RECORDS SUMMARY | 2024-06-18 14:30 | XMS_ITS | Encounter Summary ---
Author Organization [facility] Address [address] [place] [address] Care Team Providers Care Neurodiagnostic Tech Name Role Phone Geoffrey Lynn MD Unavailable Beatriz Talbot NP Unavailable Unavailab Beti Patrick MD Primary Care Provider [phone] Nita Gutierrez NP Unavailable [phone] Ayesha Marroquin PA-C Primary Care Provider Unavail able Reason for Visit * Reason Comments E-prescribe Rx Request Encounter Details Date Type Department Care Team Description 11/30/2021 Refill Gastroenterology - [place] [address] [phone] Michel Higuera PA-C [address] [address] E-prescribe Rx Request Social History Tobacco Use [...] encounter Miscellaneous Notes * Telephone Encounter - Maria G Lerner - 11/30/2021 1:24 PM EDT Ann Marie- 08/24/21 documented in this encounter Plan of Treatment Not on file documented as of this encounter Visit Diagnoses Not on filedocumented in this encounter Care Teams Neurodiagnostic Tech Relationship Specialty Start Date End Date Beti Carrion MD [address] [place] [address] PCP - General Internal Medicine 10/04/21 11/20/22 Ayesha Marroquin PA-C [address] [place] [address] PCP - General Internal Medicine 12/29/22 Geoffrey Lynn MD Specialist Cardiovascular Disease 10/20/20 Beatriz Talbot NP Specialist Cardiology 10/20/20 12/27/22 Nita Gutierrez NP [address] [place] [address] Cardiology 12/28/22 documented as of this encounter
--- OUTSIDE RECORDS SUMMARY | 2024-06-18 14:30 | XMS_ITS | Encounter Summary ---
Author Organization [facility] Address [address] [place] [address] Care Team Providers Care Professor Of History Name Role Phone Maricarmen Prescott MD Primary Care Provider Unava Geoffrey Guardado MD Unavailable Beatriz Talbot NP Unavailable Unavailab Beti Patrick MD Primary Care Provider [phone] Johan Griffin Primary Care Provider [phone] Nita Gutierrez NP Unavailable [phone] Ayesha Marroquin PA-C Primary Care Provider Unavail able Encounter Details Date Type Department Care Team Description 02/16/2021 Orders Only Adult Medicine [address] [phone] Maricarmen Prescott MD Social History Tobacco Use [...] in this encounter Care Teams Professor Of History Relationship Specialty Start Date End Date Maricarmen Prescott MD PCP - General 02/01/07 09/07/21 Beti Carrion MD [address] [place], [place] [phone] PCP - General Internal Medicine 10/04/21 11/20/22 Johan Griffin [address] [place], [place] [phone] PCP - General Internal Medicine 09/08/21 10/03/21 Ayesha Marroquin PA-C [address] [place] [address] PCP - General Internal Medicine 12/29/22 Geoffrey Lynn MD Specialist Cardiovascular Disease 10/20/20 Beatriz Talbot NP Specialist Cardiology 10/20/20 12/27/22 Nita Gutierrez NP [address] [place], [place] [phone] Cardiology 12/28/22 documented as of this encounter
--- OUTSIDE RECORDS SUMMARY | 2024-06-18 14:30 | XMS_ITS | Encounter Summary ---
Author Organization [facility] Address [address] [place] [address] Care Team Providers Care Mainframe Applications Developer Name Role Phone Maricarmen Prescott MD Primary Care Provider Unava Geoffrey Guardado MD Unavailable Beatriz Talbot NP Unavailable Unavailab Beti Patrick MD Primary Care Provider [phone] Johan Griffin Primary Care Provider [phone] Nita Gutierrez NP Unavailable [phone] Ayesha Marroquin PA-C Primary Care Provider Unavail able Encounter Details Date Type Department Care Team Description 07/13/2021 [facility] Medical Records [address] [place] [address] Abstract, Provider Social History Tobacco Use Types [...] on filedocumented in this encounter Care Teams Mainframe Applications Developer Relationship Specialty Start Date End Date Maricarmen Prescott MD PCP - General 02/01/07 09/07/21 Beti Carrion MD [address] [place] [address] PCP - General Internal Medicine 10/04/21 11/20/22 Johan Griffin [address] [place] [address] PCP - General Internal Medicine 09/08/21 10/03/21 Ayesha Marroquin PA-C [address] [place] [address] PCP - General Internal Medicine 12/29/22 Geoffrey Lynn MD Specialist Cardiovascular Disease 10/20/20 Beatriz Talbot NP Specialist Cardiology 10/20/20 12/27/22 Nita Gutierrez NP [address] [place] [address] Cardiology 12/28/22 documented as of this encounter
--- OUTSIDE RECORDS SUMMARY | 2024-06-18 14:30 | XMS_ITS | Encounter Summary ---
Author Organization [facility] Address [address] [place] [address] Care Team Providers Care Non Acoustic Operator Name Role Phone Maricarmen Prescott MD Primary Care Provider Unava ilGeoffrey Hall MD Unavailable Beatriz Talbot NP Unavailable Unavailab Beti Patrick MD Primary Care Provider [phone] Johan Griffin Primary Care Provider [phone] Nita Gutierrez NP Unavailable [phone] Ayesha Marroquin PA-C Primary Care Provider Unavail able Encounter Details Date Type Department Care Team Description 05/09/2016 Orders Only Medicine/Pediatrics - [address] [phone] Nasim Byrd PA-C Social History Tobacco Use Types Packs/Day Years [...] on filedocumented in this encounter Care Teams Non Acoustic Operator Relationship Specialty Start Date End Date Maricarmen Prescott MD PCP - General 02/01/07 09/07/21 Beti Carrion MD [address] [place] [address] PCP - General Internal Medicine 10/04/21 11/20/22 Johan Griffin [address] [place] [address] PCP - General Internal Medicine 09/08/21 10/03/21 Ayesha Marroquin PA-C [address] [place] [address] PCP - General Internal Medicine 12/29/22 Geoffrey Lynn MD Specialist Cardiovascular Disease 10/20/20 Beatriz Talbot NP Specialist Cardiology 10/20/20 12/27/22 Nita Gutierrez NP [address] [place] [address] Cardiology 12/28/22 documented as of this encounter
--- OUTSIDE RECORDS SUMMARY | 2024-06-18 14:30 | XMS_ITS | Encounter Summary ---
Author Organization [facility] Address [address] [place] [address] Care Team Providers Care Painting Manager Name Role Phone Maricarmen Prescott MD Primary Care Provider Unava Geoffrey Guardado MD Unavailable Beatriz Talbot NP Unavailable Unavailab Beti Patrick MD Primary Care Provider [phone] Johan Griffin Primary Care Provider [phone] Nita Gutierrez VOCATIONAL ADVISER Unavailable [phone] Ayesha Marroquin PA-C Primary Care Provider Unavail able Encounter Details Date Type Department Care Team Description 03/29/2021 Overcoiler Report Medical Records [address] [place] [address] BrothSegundo hendrickson MD Social History Tobacco Use Types Packs/Day [...] on filedocumented in this encounter Care Teams Painting Manager Relationship Specialty Start Date End Date Maricarmen Prescott MD PCP - General 12/6/07 7/12/22 Beti Carrion MD [address] [place] [address] PCP - General Internal Medicine 10/04/21 11/20/22 Johan Griffin [address] [place], [place] [phone] PCP - General Internal Medicine 09/08/21 10/03/21 Ayesha Marroquin PA-C [address] [place] [address] PCP - General Internal Medicine 12/29/22 Geoffrey Lynn MD Specialist Cardiovascular Disease 10/20/20 Beatriz Talbot NP Specialist Cardiology 10/20/20 12/27/22 Nita Gutierrez NP [address] [place] [address] Cardiology 12/28/22 documented as of this encounter
--- OUTSIDE RECORDS SUMMARY | 2024-06-18 14:30 | XMS_ITS | Encounter Summary ---
Author Organization [facility] Address [address] [place] [address] Care Team Providers Care Bank Appraiser Name Role Phone Maricarmen Prescott MD Primary Care Provider Unava ilGeoffrey Hall MD Unavailable Beatriz Talbot NP Unavailable Unavailab Beti Patrick MD Primary Care Provider [phone] Johan Griffin Primary Care Provider [phone] Nita Gutierrez NP Unavailable [phone] Ayesha Marroquin PA-C Primary Care Provider Unavail able Reason for Visit * Reason Onset Date Comments refill request 07/24/2014 Encounter Details Date Type Department Care Team Description 07/24/2014 Refill Medicine/Pediatrics - [address] [phone] Maricarmen Prescott MD refill request Social History Tobacco Use Types [...] encounter Miscellaneous Notes * Telephone Encounter - Ondina Crook M.A. - 07/24/2014 2:03 PM EDT Last ov 07/01/14 next appt. 07/25/14 Component Value Date ALB 4.4 11/11/2013 SGOT 17 11/11/2013 SGPT 10 11/11/2013 TBILI 0.4 11/11/2013 ALKPHOS 79 11/11/2013 TP 7.5 11/11/2013 * Telephone Encounter - Devika Bessie - 07/24/2014 2:01 PM EDT Patient would like script to be: E-PRESCRIBED/FAXED TO PHARMACY WHEN WAS THE PATIENT'S LAST APPOINTMENT IN ADULT MEDICINE? 07/01/14 WHEN WAS THE LAST TIME THE PATIENT SAW THEIR PCP? 05/19/14 Does patient have an upcoming appointment? Yes 07/25/14 (THE MEDICATION REQUESTED IS ON THE MED LIST ABOVE) All of the medications requested were on the CURRENT MEDS list Did you check the Pharmacy information above?: YES Patient wants: 30 -day supply Is this a mail order prescription request ? NO Patients current insurance carrier is: Payor: JOSÉ MIGUEL TAYLOR / Plan: [facility] MIGUEL [facility] $25/$35 PROCIOUS/ Product Type: OTHER documented in this encounter Plan of Treatment Not on file documented as of this encounter Visit Diagnoses Not on filedocumented in this encounter Care Teams Bank Appraiser Relationship Specialty Start Date End Date Maricarmen Prescott MD PCP - General 02/01/07 09/07/21 Beti Carrion MD [address] [place] [id number] PCP - General Internal Medicine 10/04/21 11/20/22 Johan Griffin [address] [place] [address] PCP - General Internal Medicine 09/08/21 10/03/21 Ayesha Marroquin PA-C [address] [place] [address] PCP - General Internal Medicine 12/29/22 Geoffrey Lynn MD Specialist Cardiovascular Disease 10/20/20 Beatriz Talbot NP Specialist Cardiology 10/20/20 12/27/22 Nita Gutierrez NP [address] [place] [address] Cardiology 12/28/22 documented as of this encounter
--- OUTSIDE RECORDS SUMMARY | 2024-06-18 14:30 | XMS_ITS | Encounter Summary ---
Author Organization [facility] Address [address] [place] [address] Care Team Providers Care Green Marketing Analyst Name Role Phone Maricarmen Prescott MD Primary Care Provider Unava Geoffrey Guardado MD Unavailable Beatriz Talbot NP Unavailable Unavailab Beti Patrick MD Primary Care Provider [phone] Johan Griffin Primary Care Provider [phone] Nita Gutierrez ALMOND SORTER Unavailable [phone] Ayesha Marroquin PA-C Primary Care Provider Unavail able Reason for Visit * Reason Onset Date Comments dizziness 05/12/2019 Encounter Details Date Type Department Care Team Description 05/12/2019 Telephone Adult Urgent Care - [address] [address] Maricarmen Prescott MD dizziness Social History Tobacco Use Types Packs/Day Years [...] encounter Miscellaneous Notes * Telephone Encounter - Kevin Zhou L.P.N. - 05/12/2019 2:12 PM EDT Patient C/O of Left side chest painmtight feeling in chest Chest feels heavy Having some dizziness no cold symptoms I just don't feel good Advise calling 911 and go to ER * Telephone Encounter - Kristian Celaya - 05/12/2019 2:09 PM EDT Symptoms patient is having: chest pain and dizziness For ALL patients calling to schedule any appointment (routine, sick visit, follow up, consult, etc.) in the outpatient setting please ask the following questions. ??? Have you traveled to [place], [place], [place], [place], [place], or [place] in the last 14 days? NO ??? Have you had close contact with someone with Coronavirus in the last 14 days? NO If YES to either, send the call to triage and do not book If pain or injury related was it due to an accident at work or from a motor vehicle accident? NO If yes, gather 3rd republican insurance information Date of accident/Injury: How long has patient had these symptoms?: since yesterday PCP: Maricarmen Prescott [place] / [place] / Product Type: [place]ARE [id number] documented in this encounter Plan of Treatment Not on file documented as of this encounter Visit Diagnoses Not on filedocumented in this encounter Care Teams Green Marketing Analyst Relationship Specialty Start Date End Date Maricarmen Prescott MD PCP - General 02/01/07 09/07/21 Beti Carrion MD [address] [place] [address] PCP - General Internal Medicine 10/04/21 11/20/22 Johan Griffin [address] [place] [address] PCP - General Internal Medicine 09/08/21 10/03/21 Ayesha Marroquin PA-C [address] [place] [address] PCP - General Internal Medicine 12/29/22 Geoffrey Lynn MD Specialist Cardiovascular Disease 10/20/20 Beatriz Talbot NP Specialist Cardiology 10/20/20 12/27/22 Nita Gutierrez NP [address] [place] [address] Cardiology 12/28/22 documented as of this encounter
--- OUTSIDE RECORDS SUMMARY | 2024-06-18 14:30 | XMS_ITS | Encounter Summary ---
Author Organization [facility] Address [address] [place] [address] Care Team Providers Care Flight Test Engineer Name Role Phone Maricarmen Prescott MD Primary Care Provider Unava ilGeoffrey Hall MD Unavailable Beatriz Talbot NP Unavailable Unavailab Beti Patrick MD Primary Care Provider [phone] Johan Griffin Primary Care Provider [phone] Nita Gutierrez NP Unavailable [phone] Ayesha Marroquin PA-C Primary Care Provider Unavail able Encounter Details Date Type Department Care Team Description 04/22/2021 [facility] Medical Records [address] [place] [address] Abstract, Provider Social History Tobacco Use Types [...] have Coronavirus / COVID-19? No / Unsure 04/15/2021 2:57 PM EST documented as of this encounter Plan of Treatment Not on file documented as of this encounter Visit Diagnoses Not on filedocumented in this encounter Care Teams Flight Test Engineer Relationship Specialty Start Date End Date Maricarmen Prescott MD PCP - General 02/01/07 09/07/21 Beti Carrion MD [address] [place] [address] PCP - General Internal Medicine 10/04/21 11/20/22 Johan Griffin [address] [place] [address] PCP - General Internal Medicine 09/08/21 10/03/21 Ayesha Marroquin PA-C [address] [place] [address] PCP - General Internal Medicine 12/29/22 Geoffrey Lynn MD Specialist Cardiovascular Disease 10/20/20 Beatriz Talbot NP Specialist Cardiology 10/20/20 12/27/22 Nita Gutierrez NP [address] [place] [address] Cardiology 12/28/22 documented as of this encounter
--- OUTSIDE RECORDS SUMMARY | 2024-06-18 14:30 | XMS_ITS | Encounter Summary ---
Author Organization [facility] Address [address] [place] [address] Care Team Providers Care Trim Mechanic Name Role Phone Maricarmen Prescott MD Primary Care Provider Unava Geoffrey Guardado MD Unavailable Beatriz Talbot NP Unavailable Unavailab Beti Patrick MD Primary Care Provider [phone] Johan Griffin Primary Care Provider [phone] Nita Gutierrez VOLUMETRIC WEIGHER Unavailable [phone] Ayesha Marroquin PA-C Primary Care Provider Unavail able Encounter Details Date Type Department Care Team Description 03/29/2019 Orders Only Medicine/Pediatrics - [address] [address] Maricarmen Prescott MD Preoperative examination; Screening for deficiency anemia; 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 Social History Tobacco Use Types Packs/Day Years Used Date Smoking Tobacco: Former Cigarettes 0.2 1 04/17/1980 - 02/27/1997 Smokeless Tobacco: Former Comments:quit 1997 1 pk per week Alcohol Use Standard Drinks/Week Comments Yes 0 (1 standard drink = 0.6 oz pure alcohol) nightly glass of anan or wine Sex Assigned at Date Recorded Not on file Job Start Date Occupation Industry Not on file Not on file Not on file documented as of this encounter Plan of Treatment Scheduled Orders Name Type Priority Associated Diagnoses Orde r Schedule COMPREHENSIVE METABOLIC PANEL Lab Routine Preoperative examination Expected: 03/29/2019 (Approximate), Expires: 11/26/2022 CBC (AUTO DIFF PLATELET) Lab Routine Preoperative examination Screening for deficiency anemia Expected: 03/29/2019 (Approximate), Expires: 03/28/2020 PROTHROMBIN TIME Lab Routine Preoperative examination 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 Expected: 03/29/2019 (Approximate), Expires: 03/28/2020 HEMOGLOBIN A1C Lab Routine Preoperative examination Expected: 03/29/2019, Expires: 03/28/2020 documented as of this encounter Visit Diagnoses Diagnosis Preoperative examination Preoperative examination, unspecified Screening for deficiency anemia Screening for other and unspecified deficiency anemia 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 documented in this encounter Care Teams Trim Mechanic Relationship Specialty Start Date End Date Maricarmen Prescott MD PCP - General 02/01/07 09/07/21 Beti Carrion MD [address] [place] [address] PCP - General Internal Medicine 10/04/21 11/20/22 Johan Griffin [address] [place] [address] PCP - General Internal Medicine 09/08/21 10/03/21 Ayesha Marroquin PA-C [address] [place] [address] PCP - General Internal Medicine 12/29/22 Geoffrey Lynn MD Specialist Cardiovascular Disease 10/20/20 Beatriz Talbot NP Specialist Cardiology 10/20/20 12/27/22 Nita Gutierrez NP [address] [place] [address] Cardiology 12/28/22 documented as of this encounter
--- OUTSIDE RECORDS SUMMARY | 2024-06-18 14:30 | XMS_ITS | Encounter Summary ---
Author Organization [facility] Address [address] [place] [address] Care Team Providers Care Dural Mechanic Name Role Phone Maricarmen Prescott MD Primary Care Provider Unava Geoffrey Guardado MD Unavailable Beatriz Talbot NP Unavailable Unavailab Beti Patrick MD Primary Care Provider [phone] Johan rGiffin Primary Care Provider [phone] Nita Gutierrez DISPATCH OFFICER Unavailable [phone] Ayesha Marroquin PA-C Primary Care Provider Unavail able Reason for Visit * Reason Onset Date Comments refill request 09/06/2021 Encounter Details Date Type Department Care Team Description 09/06/2021 [place] Medicine/Pediatrics - [address] [address] Mary Grace Hayes MD refill request Social History Tobacco Use [...] In the last 10 days, have tianna maki been in contact with someone who was confirmed or suspected to have Coronavirus/COVID-19? No / Unsure 09/09/2021 1:41 PM EDT documented as of this encounter Miscellaneous Notes * Telephone Encounter - Keke Ramirez - 09/06/2021 4:01 PM EDT I spoke with patient regarding upcoming appt with Dr. Call for med refills. Patient is aware will not be her pcp and that she will have to pick a provider when she comes in on 09/08. Pt also awarethat meds may be tapered.BJ * Telephone Encounter - Joyce Casper - 09/06/2021 3:12 PM EDT Patient returning call to Miroslava- requests call back on her cell# * Telephone Encounter - Miroslava Cheney M.A. - 09/06/2021 11:28 AM EDT Please review and let me know what to do next * Telephone Encounter - Mary Grace Hansen MD - 09/06/2021 10:16 AM EDT Please address with Maryuri Davies * Telephone Encounter - Miroslava Cheney M.A. - 09/06/2021 10:01 AM EDT Last ov 08/20/21 Lab Results Component Value Date URBENZO NONE DETECTED 11/07/2019 UROPIATES POSITIVE 11/07/2019 UROXYCODONE POSITIVE 11/07/2019 URBARBITUATE NONE DETECTED 11/07/2019 PAINAMPHETAM NONE DETECTED 11/07/2019 PAINCOCAINE NONE DETECTED 11/07/2019 PAINCANNABIN NONE DETECTED 11/07/2019 Last ref 08/09/2021.Pt is due for ref documented in this encounter Plan of Treatment Not on file documented as of this encounter Visit Diagnoses Diagnosis Anxiety Anxiety state, unspecified documented in this encounter Care Teams Dural Mechanic Relationship Specialty Start Date End Date Maricarmen Prescott MD PCP - General 02/01/07 09/07/21 Beti Carrion MD [address] [place] [address] PCP - General Internal Medicine 10/04/21 11/20/22 Johan Griffin [address] [place] [address] PCP - General Internal Medicine 09/08/21 10/03/21 Ayesha Marroquin PA-C [address] [place] [address] PCP - General Internal Medicine 12/29/22 Geoffrey Lynn MD Specialist Cardiovascular Disease 10/20/20 Beatriz Talbot NP Specialist Cardiology 10/20/20 12/27/22 Nita Gutierrez NP [address] [place] [address] Cardiology 12/28/22 documented as of this encounter
--- OUTSIDE RECORDS SUMMARY | 2024-06-18 14:30 | XMS_ITS | Encounter Summary ---
Author Organization [facility] Address [address] [place] [address] Care Team Providers Care Mail Handler Name Role Phone Geoffrey Lynn MD Unavailable Beatriz Talbot NP Unavailable Unavailab Beti Patrick MD Primary Care Provider [phone] Nita Gutierrez LIQUIFIED NATURAL GAS TECHNICIAN Unavailable [phone] Ayesha Marroquin PA-C Primary Care Provider Unavail able Reason for Visit * Reason Onset Date Comments refill request 12/03/2021 Encounter Details Date Type Department Care Team Description 12/03/2021 Refill Adult Medicine [address] [address] Beti Carrion MD [address] [place] [phone] refill request Social History Tobacco Use Types [...] Telephone Encounter - Gisselle Oliveira M.A. - 12/03/2021 1:59 PM EDT Lab Results Component Value Date NA 133 08/16/2021 K 4.2 08/16/2021 CO2 27 08/16/2021 CL 99 08/16/2021 BUN 9 08/16/2021 CREAT 0.64 08/16/2021 GLU 93 08/16/2021 CA 9.5 08/16/2021 GFR > 60 08/16/2021 Last appt 11/17/21 * Telephone Encounter - Zee Flores - 12/03/2021 10:35 AM EDT Patient would like script to be: E-PRESCRIBED/FAXED TO PHARMACY WHEN WAS THE PATIENT'S LAST APPOINTMENT IN ADULT MEDICINE? 11/17/2021 WHEN WAS THE LAST TIME THE PATIENT SAW THEIR PCP? Same as above Does patient have an upcoming appointment? No-patient refused appointment, will call back to book appointment (THE MEDICATION REQUESTED IS ON THE MED [...] insurance carrier is: [place] / [place] / Product Type: MEDICARE [id number] documented in this encounter Plan of Treatment Not on file documented as of this encounter Visit Diagnoses Not on filedocumented in this encounter Care Teams Mail Handler Relationship Specialty Start Date End Date Beti Carrion MD [address] [place] [address] PCP - General Internal Medicine 10/04/21 11/20/22 Ayesha Marroquin PA-C [address] [place] [address] PCP - General Internal Medicine 12/29/22 Geoffrey Lynn MD Specialist Cardiovascular Disease 10/20/20 Beatriz Talbot NP Specialist Cardiology 10/20/20 12/27/22 Nita Gutierrez NP [address] [place] [address] Cardiology 12/28/22 documented as of this encounter
--- OUTSIDE RECORDS SUMMARY | 2024-06-18 14:30 | XMS_ITS | Encounter Summary ---
Author Organization [facility] Address [address] [place] [address] Care Team Providers Care Greenskeeper Head Name Role Phone Maricarmen Prescott MD Primary Care Provider Unava Gefofrey Guardado MD Unavailable Beatriz Talbot NP Unavailable Unavailab Beti Patrick MD Primary Care Provider [phone] Johan Griffin Primary Care Provider [phone] Nita Gutierrez NP Unavailable [phone] Ayesha Marroquin PA-C Primary Care Provider Unavail able Encounter Details Date Type Department Care Team Description 02/01/2016 Logistics Team Leader Report Medical Records [address] [place] [address] [facility] Social History Tobacco Use Types Packs/Day [...] on filedocumented in this encounter Care Teams Greenskeeper Head Relationship Specialty Start Date End Date Maricarmen Prescott MD PCP - General 02/01/07 09/07/21 Beti Carrion MD [address] [place] [address] PCP - General Internal Medicine 10/04/21 11/20/22 Johan Griffin [address] [place] [address] PCP - General Internal Medicine 09/08/21 10/03/21 Ayesha Marroquin PA-C [address] [place] [address] PCP - General Internal Medicine 12/29/22 Geoffrey Lynn MD Specialist Cardiovascular Disease 10/20/20 Beatriz Talbot NP Specialist Cardiology 10/20/20 12/27/22 Nita Gutierrez NP [address] [place] [address] Cardiology 12/28/22 documented as of this encounter
--- OUTSIDE RECORDS SUMMARY | 2024-06-18 14:30 | XMS_ITS | Encounter Summary ---
Author Organization [facility] Address [address] [place] [address] Care Team Providers Care Millinery Designer Name Role Phone Maricarmen Prescott MD Primary Care Provider Unava ilGeoffrey Hall MD Unavailable Beatriz Talbot ENGINE REPAIRER PRODUCTION Unavailable Unavailab Beti Patrick MD Primary Care Provider [phone] Johan Griffin Primary Care Provider [phone] Nita Gutierrez ENGINE REPAIRER PRODUCTION Unavailable [phone] Ayesha Marroquin PA-C Primary Care Provider Unavail able Encounter Details Date Type Department Care Team Description 04/15/2014 PRACTICE SPECIALIST/[facility] Report Medical Records [address] [place] [address] Abstract, Provider Social History Tobacco Use Types [...] on filedocumented in this encounter Care Teams Millinery Designer Relationship Specialty Start Date End Date Maricarmen Prescott MD PCP - General 02/01/07 09/07/21 Beti Carrion MD [address] [place] [address] PCP - General Internal Medicine 10/04/21 11/20/22 Johan Griffin [address] [place] [address] PCP - General Internal Medicine 09/08/21 10/03/21 Ayesha Marroquin PA-C [address] [place] [address] PCP - General Internal Medicine 12/29/22 Geoffrey Lynn MD Specialist Cardiovascular Disease 10/20/20 Beatriz Talbot NP Specialist Cardiology 10/20/20 12/27/22 Nita Gutierrez NP [address] [place] [address] Cardiology 12/28/22 documented as of this encounter
--- OUTSIDE RECORDS SUMMARY | 2024-06-18 14:31 | XMS_ITS | Encounter Summary ---
Author Organization [facility] Address [address] [place] [address] Care Team Providers Care Vehicle And Equipment Cleaner Name Role Phone Maricarmen Prescott MD Primary Care Provider Unava Geoffrey Guardado MD Unavailable Beatriz Talbot SAUSAGE COOKER Unavailable Unavailab Beti Patrick MD Primary Care Provider [phone] Johan Griffin Primary Care Provider [phone] Nita Gutierrez SAUSAGE COOKER Unavailable [phone] Ayesha Marroquin PA-C Primary Care Provider Unavail able Encounter Details Date Type Department Care Team Description 07/20/2010 Transfer Records Medical Records [address] [place] [address] Gallo Ortiz Social History Tobacco Use Types Packs/Day Years [...] on filedocumented in this encounter Care Teams Vehicle And Equipment Cleaner Relationship Specialty Start Date End Date Maricarmen Prescott MD PCP - General 02/01/07 09/07/21 Beti Carrion MD [address] [place] [address] PCP - General Internal Medicine 10/04/21 11/20/22 Johan Griffin [address] [place] [address] PCP - General Internal Medicine 09/08/21 10/03/21 Ayesha Marroquin PA-C [address] [place] [address] PCP - General Internal Medicine 12/29/22 Geoffrey Lynn MD Specialist Cardiovascular Disease 10/20/20 Beatriz Talbot NP Specialist Cardiology 10/20/20 12/27/22 Nita Gutierrez NP [address] [place] [address] Cardiology 12/28/22 documented as of this encounter
--- OUTSIDE RECORDS SUMMARY | 2024-06-18 14:31 | XMS_ITS | Encounter Summary ---
Author Organization [facility] Address [address] [place] [address] Care Team Providers Care Derrick Car Operator Name Role Phone Geoffrey Lynn MD Unavailable Beatriz Talbot NP Unavailable Unavailab Beti Patrick MD Primary Care Provider [phone] Nita Gutierrez PIPE LINE REPAIRER Unavailable [phone] Ayesha Marroquin PA-C Primary Care Provider Unavail able Encounter Details Date Type Department Care Team Description 08/01/2022 Black Powder Glazing Operator Report Medical Records [address] [place] [address] Ayesha Marroquin PA-C Social History Tobacco Use Types Packs/Day [...] on filedocumented in this encounter Care Teams Derrick Car Operator Relationship Specialty Start Date End Date Beti Carrion MD [address] [place] [id number] PCP - General Internal Medicine 10/04/21 11/20/22 Ayesha Marroquin PA-C [address] [place] [address] PCP - General Internal Medicine 12/29/22 Geoffrey Lynn MD Specialist Cardiovascular Disease 10/20/20 Beatriz Talbot NP Specialist Cardiology 10/20/20 12/27/22 Nita Gutierrez NP [address] [place] [address] Cardiology 12/28/22 documented as of this encounter
--- OUTSIDE RECORDS SUMMARY | 2024-06-18 14:31 | XMS_ITS | Encounter Summary ---
Author Organization [facility] Address [address] [place] [address] Care Team Providers Care Lift Supervisor Name Role Phone Maricarmen Perscott MD Primary Care Provider Unava Geoffrey Guardado MD Unavailable Beatriz Talbot NP Unavailable Unavailab Beti Patrick MD Primary Care Provider [phone] Johan Griffin Primary Care Provider [phone] Nita Gutierrez NP Unavailable [phone] Ayesha Marroquin PA-C Primary Care Provider Unavail able Encounter Details Date Type Department Care Team Description 03/25/2020 [facility] Medical Records [address] [place] [address] Abstract, Provider Social History Tobacco Use Types [...] - General 02/01/07 09/07/21 Beti Carrion MD [address] [place] [address] PCP - General Internal Medicine 10/04/21 11/20/22 Johan Griffin [address] [place] [address] PCP - General Internal Medicine 09/08/21 10/03/21 Ayesha Marroquin PA-C [address] [place] [address] PCP - General Internal Medicine 12/29/22 Geoffrey Lynn MD Specialist Cardiovascular Disease 10/20/20 Beatriz Talbot NP Specialist Cardiology 10/20/20 12/27/22 Nita Gutierrez NP [address] [place] [address] Cardiology 12/28/22 documented as of this encounter
--- OUTSIDE RECORDS SUMMARY | 2024-06-18 14:31 | XMS_ITS | Encounter Summary ---
Author Organization [facility] Address [address] [place] [address] Care Team Providers Care Air Brake Rigger Name Role Phone Maricarmen Prescott MD Primary Care Provider Unava Geoffrey Guardado MD Unavailable Beatriz Talbot NP Unavailable Unavailab Beti Patrick MD Primary Care Provider [phone] Johan Griffin Primary Care Provider [phone] Nita Gutierrez CONVEYOR MAINTENANCE MECHANIC Unavailable [phone] Ayesha Marroquin PA-C Primary Care Provider Unavail able Encounter Details Date Type Department Care Team Description 11/22/2013 Hospital Medical Records [address] [place] [address] Jan Santana MD Social History Tobacco Use Types Packs/Day [...] on filedocumented in this encounter Care Teams Air Brake Rigger Relationship Specialty Start Date End Date Maricarmen Prescott MD PCP - General 02/01/07 09/07/21 Beti Carrion MD [address] [place] [address] PCP - General Internal Medicine 10/04/21 11/20/22 Johan Griffin [address] [place] [id number] PCP - General Internal Medicine 09/08/21 10/03/21 Ayesha Marroquin PA-C [address] [place] [address] PCP - General Internal Medicine 12/29/22 Geoffrey Lynn MD Specialist Cardiovascular Disease 10/20/20 Beatriz Talbot NP Specialist Cardiology 10/20/20 12/27/22 Nita Gutierrez NP [address] [place] [address] Cardiology 12/28/22 documented as of this encounter
--- OUTSIDE RECORDS SUMMARY | 2024-06-18 14:31 | XMS_ITS | Encounter Summary ---
Author Organization [facility] Address [address] [place] [address] Care Team Providers Care Police Booking Officer Name Role Phone Maricarmen Prescott MD Primary Care Provider Unava Geoffrey Guardado MD Unavailable Beatriz Talbot NP Unavailable Unavailab Beti Patrick MD Primary Care Provider [phone] Johan Griffin Primary Care Provider [phone] Nita Gutierrez MANAGER INTEGRATED Unavailable [phone] Ayesha Marroquin PA-C Primary Care Provider Unavail able Encounter Details Date Type Department Care Team Description 09/04/2019 Co Op Report Medical Records [address] [place] [address] Kristi Contreras MD Social History Tobacco Use [...] on filedocumented in this encounter Care Teams Police Booking Officer Relationship Specialty Start Date End Date Maricarmen Presctot MD PCP - General 02/01/07 09/07/21 Beti Carrion MD [address] [place] [address] PCP - General Internal Medicine 10/04/21 11/20/22 Johan Griffin [address] [place] [address] PCP - General Internal Medicine 09/08/21 10/03/21 Ayesha Marroquin PA-C [address] [place] [address] PCP - General Internal Medicine 12/29/22 Geoffrey Lynn MD Specialist Cardiovascular Disease 10/20/20 Beatriz Talbot NP Specialist Cardiology 10/20/20 12/27/22 Nita Gutierrez NP [address] [place] [address] Cardiology 12/28/22 documented as of this encounter
--- OUTSIDE RECORDS SUMMARY | 2024-06-18 14:31 | XMS_ITS | Encounter Summary ---
Author Organization [facility] Address [address] [place] [address] Care Team Providers Care Machine Assistant Name Role Phone Maricarmen Prescott MD Primary Care Provider Unava Geoffrey Guardado MD Unavailable Beatriz Talbot NP Unavailable Unavailab Beti Patrick MD Primary Care Provider [phone] Johan Griffin Primary Care Provider [phone] Nita Gutierrez HYDROMETEOROLOGY TEACHER Unavailable [phone] Ayesha Marroquin PA-C Primary Care Provider Unavail able Encounter Details Date Type Department Care Team Description 12/23/2019 Orders Only Medical Records [address] [place] [address] Brittani Casas MD Social History Tobacco Use Types Packs/Day [...] have Coronavirus / COVID-19? No / Unsure 12/13/2019 3:27 PM EDT documented as of this encounter Plan of Treatment Not on file documented as of this encounter Procedures Procedure Name Priority Date/Time Associated Diagnosis Comments OUTSIDE NUCLEAR STRESS TEST Routine 12/19/2019 documented in this encounter Results * OUTSIDE NUCLEAR STRESS TEST (12/19/2019) Brittani Casas MD CARDIOLOGY documented in this encounter Visit Diagnoses Not on filedocumented in this encounter Care Teams Machine Assistant Relationship Specialty Start Date End Date Maricarmen Prescott MD PCP - General 02/01/07 09/07/21 Beti Carrion MD [address] [place] [address] PCP - General Internal Medicine 10/04/21 11/20/22 Johan Griffin [address] [place] [address] PCP - General Internal Medicine 09/08/21 10/03/21 Ayesha Marroquin PA-C [address] [place] [address] PCP - General Internal Medicine 12/29/22 Geoffrey Lynn MD Specialist Cardiovascular Disease 10/20/20 Beatriz Talbot NP Specialist Cardiology 10/20/20 12/27/22 Nita Gutierrez NP [address] [place] [address] Cardiology 12/28/22 documented as of this encounter
--- OUTSIDE RECORDS SUMMARY | 2024-06-18 14:31 | XMS_ITS | Encounter Summary ---
Author Organization [facility] Address [address] [place] [address] Care Team Providers Care Bottling Equipment Sales Representative Name Role Phone Maricarmen Prescott MD Primary Care Provider Unava ilGeoffrey Hall MD Unavailable Beatriz Talbot NP Unavailable Unavailab Beti Patrick MD Primary Care Provider [phone] Johan Griffin Primary Care Provider [phone] Nita Gutierrez NP Unavailable [phone] Ayesha Marroquin PA-C Primary Care Provider Unavail able Encounter Details Date Type Department Care Team Description 06/01/2020 [facility] Medical Records [address] [place] [address] Abstract, Provider Social History Tobacco Use Types [...] have Coronavirus / COVID-19? No / Unsure 05/11/2020 3:06 PM EDT documented as of this encounter Plan of Treatment Not on file documented as of this encounter Visit Diagnoses Not on filedocumented in this encounter Care Teams Bottling Equipment Sales Representative Relationship Specialty Start Date End Date Maricarmen Prescott MD PCP - General 02/01/07 09/07/21 Beti Carrion MD [address] [place] [address] PCP - General Internal Medicine 10/04/21 11/20/22 Johan Griffin [address] [place] [address] PCP - General Internal Medicine 09/08/21 10/03/21 Ayesha Marroquin PA-C [address] [place] [address] PCP - General Internal Medicine 12/29/22 Geoffrey Lynn MD Specialist Cardiovascular Disease 10/20/20 Beatriz Talbot NP Specialist Cardiology 10/20/20 12/27/22 Nita Gutierrez NP [address] [place] [address] Cardiology 12/28/22 documented as of this encounter
--- OUTSIDE RECORDS SUMMARY | 2024-06-18 14:31 | XMS_ITS | Clinical Summary ---
Author Organization [facility] Address [address] [place] [address] Care Team Providers Care Adhesive Bandage Machine Operator Name Role Phone Maricarmen Thomas MD Primary [...] age to complete this topic Care Teams Adhesive Bandage Machine Operator Relationship Specialty Start Date End Date Maricarmen Thomas MD PCP - General Internal Medicine 07/17/18
--- OUTSIDE RECORDS SUMMARY | 2024-06-18 14:31 | XMS_ITS | Encounter Summary ---
Author Organization [facility] Address [address] [place] [address] Care Team Providers Care Forming Mill Operator Name Role Phone Maricarmen Prescott MD Primary Care Provider Unava Geoffrey Guardado MD Unavailable Beatriz Talbot NP Unavailable Unavailab Beti Patrick MD Primary Care Provider [phone] Johan Griffin Primary Care Provider [phone] Nita Gutierrez PRODUCTION SCHEDULER Unavailable [phone] Ayesha Marroquin PA-C Primary Care Provider Unavail able Encounter Details Date Type Department Care Team Description 06/08/2017 Orders Only Adult Medicine - [address] [address] Maricarmen Prescott MD Preoperative examination; Screening for deficiency anemia; nursing home current use of anticoagulant therapy Social History [...] on file documented as of this encounter Results * URINE, CULTURE (06/21/2017 11:33 AM EDT) Urine (Urine) 06/21/2017 11: 33 AM EDT 06/21/2017 11:34 AM EDT Narrative HASMUKH GODOY - 06/22/2017 10:44 AM EDT No growth Maricarmen Prescott MD LAB [facility] * URINALYSIS, COMPLETE (06/21/2017 11:33 AM EDT) SPECIFIC GRAVITY, URINE 1.025 1.005 - 1.030 06/21/2017 4:04 PM EDT [facility] PH, URINE 6.0 5 - 8 06/21/2017 4:04 PM EDT [facility] PROTEIN, URINE NEGATIVE <=TRACE mg/dL 06/21/2017 4:04 PM EDT [facility] GLUCOSE, URINE (UA) NEGATIVE NEGATIVE mg/dL 06/21/2017 4:04 PM EDT [facility] KETONE, URINE NEGATIVE NEGATIVE mg/dL 06/21/2017 4:04 PM EDT [facility] BILIRUBIN URINE NEGATIVE NEGATIVE 06/21/2017 4:04 PM EDT [facility] UROBILINOGEN, URINE 0.2 0.2 - 1.0 E.U./dL 06/21/2017 4:04 PM EDT [facility] BLOOD, URINE NEGATIVE NEGATIVE 06/21/2017 4:04 PM EDT [facility] NITRITE,URINE NEGATIVE NEGATIVE 06/21/2017 4:04 PM EDT [facility] LEUKOCYTE ESTERASE, URINE NEGATIVE NEGATIVE 06/21/2017 4:04 PM EDT [facility] RBC-Urine 0-1 0 - 4 /hpf 06/21/2017 5:07 PM EDT [facility] WBC, URINE 0-1 0 - 4 /hpf 06/21/2017 5:07 PM EDT [facility] MUCUS, URINE LIGHT 06/21/2017 5:07 PM [facility] 06/21/2017 11:3 3 AM EDT 06/21/2017 11:34 AM EDT Maricarmen Prescott MD LAB Performing Organization Address [facility] de Phone Number [address] * THROMBOPLASTIN TIME, PARTIAL (06/21/2017 11:23 AM EDT) PTT 25.7 20.6 - 33.6 SEC 06/21/2017 4:08 PM [facility] Comment: Please note adjusted APTT (sec) reference range ?? effective 08/28/2015. 06/21/2017 11:2 3 AM EDT 06/21/2017 11:23 AM EDT Maricarmen Prescott MD LAB Performing Organization Address [facility] Number [address] * PROTHROMBIN TIME (06/21/2017 11:23 AM EDT) PT 14.6 11.6 - 15.6 SEC 06/21/2017 3:44 PM T [facility] Comment: Please note adjusted PT(sec)normal reference range ?? effective 10/28/14. INR 1.11 06/21/2017 3:[address] [facility] 06/21/2017 11:2 3 AM EDT 06/21/2017 11:23 AM EDT Maricarmen Prescott MD LAB Performing Organization Address [facility] Phone Number [address] * (ABNORMAL) CBC (AUTO DIFF PLATELET) (06/21/2017 11:23 AM EDT) WBC 3.7(L) 4.8 - 10.8 x10-3 06/21/2017 2:[address] [facility] RBC 3.7(L) 3.8 - 4.8 x10-6 06/21/2017 2:[address] [facility] HGB 11.4(L) 11.5 - 16.0 g/dl 06/21/2017 2:52 PM EDT [facility] HCT 34.9(L) 35 - 47 % 06/21/2017 2:[address] [facility] [place] MCV 94.8 79 - 98 fl 06/21/2017 2:[address] [facility] [place] MCH 31.0 27 - 32 pg 06/21/2017 2:[address] [facility] [place] MCHC 32.7 32 - 37 g/dl 06/21/2017 2:[address] [facility] [place] RDW 12.6 11 - 15 % 06/21/2017 2:[address] [facility] [place] PLT COUNT 247 130 - 400 x10-3 06/21/2017 2:[address] [facility] [place] MEAN PLATELET VOLUME 9.8 7 - 11 fl 06/21/2017 2:[address] [facility] [place] NEUT % 40.2(L) 41 - 85 % 06/21/2017 2:[address] [facility] [place] LYMPH % 41.6 15 - 48 % 06/21/2017 2:[address] [facility] [place] MONO % 13.0(H) 0 - 12 % 06/21/2017 2:[address] [facility] [place] EOS % 4.1 0 - 5 % 06/21/2017 2:[address] [facility] [place] BASO % 1.1 0 - 2 % 06/21/2017 2:[address] [facility] [place] 06/21/2017 11:2 3 AM EDT 06/21/2017 11:23 AM EDT Maricarmen Prescott MD LAB Performing Organization Address City/State/[facility] Co de Phone Number [facility] [address] [facility] * ASSAY, PREALBUMIN (06/21/2017 11:08 AM EDT) PREALBUMIN 25 18 - 45 mg/dL 06/21/2017 3:50 PM EDT [facility] 06/21/2017 11:0 8 AM EDT 06/21/2017 11:09 AM EDT Maricarmen Prescott MD LAB [facility] * BASIC METABOLIC PANEL (06/21/2017 11:08 AM EDT) GLUCOSE 91 70 - 100 mg/dL 06/21/2017 3:20 PM EDT [facility] Comment: Reference range applicable to fasting specimens only Based on recommendations from the ADA and AACE, the fasting glucose reference range has been changed to 70-100 mg/dL. ??This change is effective July 13, 2009 BUN 13 5 - 25 mg/dL 06/21/2017 3:20 PM EDT [facility] CREAT 0.8 0.7 - 1.5 mg/dL 06/21/2017 3:20 PM T [facility] GFR > 60 >60 06/21/2017 3:20 PM T [facility] Comment: If patient is -[place]jib[place], multiply result by 1.21 Chronic Kidney Disease: < 60 ml/min/1.73 square meters Kidney Failure: < 15 ml/min/1.73 square meters Sodium 137 133 - 145 mEq/L 06/21/2017 3:20 PM EDT [facility] Potassium 4.5 3.5 - 5.5 mEq/L 06/21/2017 3:20 PM T [facility] Chloride 98 96 - 108 mEq/L 06/21/2017 3:20 PM T [facility] CO2 26.8 21.0 - 32.0 mEq/L 06/21/2017 3:20 PM T [facility] CALCIUM 10.1 8.5 - 10.5 mg/dL 06/21/2017 3:20 PM T [facility] 06/21/2017 11:0 8 AM EDT 06/21/2017 11:09 AM EDT Maricarmen Prescott MD LAB [facility] [address] [facility] documented in this encounter Visit Diagnoses Diagnosis Preoperative examination Preoperative examination, unspecified Screening for deficiency anemia Screening for other and unspecified deficiency anemia nursing home current use of anticoagulant therapy documented in this encounter Care Teams Forming Mill Operator Relationship Specialty Start Date End Date Maricarmen Prescott MD PCP - General 02/01/07 09/07/21 Beti Carrion MD [address] [place] [address] PCP - General Internal Medicine 10/04/21 11/20/22 Johan Griffin [address] [place] [address] PCP - General Internal Medicine 09/08/21 10/03/21 Ayesha Marroquin PA-C [address] [place] [address] PCP - General Internal Medicine 12/29/22 Geoffrey Lynn MD Specialist Cardiovascular Disease 10/20/20 Beatriz Talbot NP Specialist Cardiology 10/20/20 12/27/22 Nita Gutierrez NP [address] [place] [address] Cardiology 12/28/22 documented as of this encounter
--- OUTSIDE RECORDS SUMMARY | 2024-06-18 14:31 | XMS_ITS | Encounter Summary ---
Author Organization [facility] Address [address] [place] [address] Care Team Providers Care Organic Chemistry Teacher Name Role Phone Geoffrey Lynn MD Unavailable Beatriz Talbot NP Unavailable Unavailab Beti Patrick MD Primary Care Provider [phone] Nita Gutierrez NP Unavailable [phone] Ayesha Marroquin PA-C Primary Care Provider Unavail able Encounter Details Date Type Department Care Team Description 08/16/2022 [facility] Medical Records [address] [place] [address] Ayesha Marroquin PA-C Social History Tobacco Use [...] Date/Time Associated Diagnosis Comments OUTSIDE LAB Routine 08/16/2022 documented in this encounter Results * OUTSIDE LAB (08/16/2022) Provider Abstract LAB documented in this encounter Visit Diagnoses Not on filedocumented in this encounter Care Teams Organic Chemistry Teacher Relationship Specialty Start Date End Date Beti Carrion MD [address] [place] [address] PCP - General Internal Medicine 10/04/21 11/20/22 Ayesha Marroquin PA-C [address] [place] [address] PCP - General Internal Medicine 12/29/22 Geoffrey Lynn MD Specialist Cardiovascular Disease 10/20/20 Beatriz Talbot NP Specialist Cardiology 10/20/20 12/27/22 Nita Gutierrez NP [address] [place] [address] Cardiology 12/28/22 documented as of this encounter
--- OUTSIDE RECORDS SUMMARY | 2024-06-18 14:31 | XMS_ITS | Encounter Summary ---
Author Organization [facility] Address [address] [place] [address] Care Team Providers Care Deputy United [place] Marshal Name Role Phone Maricarmen Prescott MD Primary Care Provider Unava Geoffrey Guardado MD Unavailable Beatriz Talbot NP Unavailable Unavailab Beti Patrick MD Primary Care Provider [phone] Johan Griffin Primary Care Provider [phone] Nita Gutierrez NP Unavailable [phone] Ayesha Marroquin PA-C Primary Care Provider Unavail able Encounter Details Date Type Department Care Team Description 05/18/2020 [facility] Medical Records [address] [place] [address] Abstract, Provider Social History Tobacco Use Types [...] filedocumented in this encounter Care Teams Deputy [place] Marshal Relationship Specialty Start Date End Date Maricarmen Prescott MD PCP - General 02/01/07 09/07/21 Beti Carrion MD [address] [place] [address] PCP - General Internal Medicine 10/04/21 11/20/22 Johan Griffin [address] [place] [address] PCP - General Internal Medicine 09/08/21 10/03/21 Ayesha Marroquin PA-C [address] [place] [address] PCP - General Internal Medicine 12/29/22 Geoffrey Lynn MD Specialist Cardiovascular Disease 10/20/20 Beatriz Talbot NP Specialist Cardiology 10/20/20 12/27/22 Nita Gutierrez NP [address] [place] [address] Cardiology 12/28/22 documented as of this encounter
--- OUTSIDE RECORDS SUMMARY | 2024-06-18 14:31 | XMS_ITS | Encounter Summary ---
Author Organization [facility] Address [address] [place] [address] Care Team Providers Care Magnetometer Operator Name Role Phone Maricarmen Prescott MD Primary Care Provider Unava Geoffrey Guardado MD Unavailable Beatriz Talbot NP Unavailable Unavailab Beti Patrick MD Primary Care Provider [phone] Johan Griffin Primary Care Provider [phone] Nita Gutierrez NP Unavailable [phone] Ayesha Marroquin PA-C Primary Care Provider Unavail able Encounter Details Date Type Department Care Team Description 07/10/2019 Orders Only Medical Records [address] [place] [address] Brittani Casas MD Social History Tobacco Use [...] Name Priority Date/Time Associated Diagnosis Comments OUTSIDE LOOP RECORDER Routine 05/27/2019 documented in this encounter Results * OUTSIDE LOOP RECORDER (05/27/2019) Brittani Casas MD CARDIOLOGY documented in this encounter Visit Diagnoses Not on filedocumented in this encounter Care Teams Magnetometer Operator Relationship Specialty Start Date End Date Maricarmen Prescott MD PCP - General 02/01/07 09/07/21 Beti Carrion MD [address] [place] [id number] PCP - General Internal Medicine 10/04/21 11/20/22 Johan Griffin [address] [place] [address] [phone] PCP - General Internal Medicine 09/08/21 10/03/21 Ayesha Marroquin PA-C [address] [place] [address] PCP - General Internal Medicine 12/29/22 Geoffrey Lynn MD Specialist Cardiovascular Disease 10/20/20 Betariz Talbot NP Specialist Cardiology 10/20/20 12/27/22 Nita Gutierrez NP [address] [place] [address] Cardiology 12/28/22 documented as of this encounter
--- OUTSIDE RECORDS SUMMARY | 2024-06-18 14:31 | XMS_ITS | Encounter Summary ---
Author Organization [facility] Address [address] [place] [address] Care Team Providers Care Tumbler Machine Operator Name Role Phone Maricarmen Prescott MD Primary Care Provider Unava Geoffrey Guardado MD Unavailable Beatriz Talbot NP Unavailable Unavailab Beti Patrick MD Primary Care Provider [phone] Johan Griffin Primary Care Provider [phone] Nita Gutierrez NP Unavailable [phone] Ayesha Marroquin PA-C Primary Care Provider Unavail able Encounter Details Date Type Department Care Team Description 05/15/2019 [facility] Medical Records [address] [place] [address] Abstract, Provider Social History Tobacco Use Types [...] on filedocumented in this encounter Care Teams Tumbler Machine Operator Relationship Specialty Start Date End Date Maricarmen Prescott MD PCP - General 02/01/07 09/07/21 Beti Carrion MD [address] [place] [address] PCP - General Internal Medicine 10/04/21 11/20/22 Johan Griffin [address] [place] [address] PCP - General Internal Medicine 09/08/21 10/03/21 Ayesha Marroquin PA-C [address] [place] [address] PCP - General Internal Medicine 12/29/22 Geoffrey Lynn MD Specialist Cardiovascular Disease 10/20/20 Beatriz Talbot NP Specialist Cardiology 10/20/20 12/27/22 Nita Gutierrez NP [address] [place] [address] Cardiology 12/28/22 documented as of this encounter
--- OUTSIDE RECORDS SUMMARY | 2024-06-18 14:31 | XMS_ITS | Encounter Summary ---
Author Organization [facility] Address [address] [place] [address] Care Team Providers Care Tobacco Roller Name Role Phone Geoffrey Lynn MD Unavailable Beatriz Talbot NP Unavailable Unavailab Beti Patrick MD Primary Care Provider [phone] Nita Gutierrez PRINCIPAL PROGRAMMER Unavailable [phone] Ayesha Marroquin PA-C Primary Care Provider Unavail able Reason for Visit * Reason Comments E-prescribe Rx Request Encounter Details Date Type Department Care Team Description 03/22/2022 Refill Gastroenterology [address] [place] [id number] Genny Grossman MD E-prescribe Rx Request Social History Tobacco [...] Miscellaneous Notes * Telephone Encounter - Gisselle Andrey - 03/22/2022 2:21 PM EST Last ov roxana 08/24/21 no ov scheduled documented in this encounter Plan of Treatment Not on file documented as of this encounter Visit Diagnoses Not on filedocumented in this encounter Care Teams Tobacco Roller Relationship Specialty Start Date End Date Beti Carrion MD [address] [place] [address] PCP - General Internal Medicine 10/04/21 11/20/22 Ayesha Marroquin PA-C [address] [place] [address] PCP - General Internal Medicine 12/29/22 Geoffrey Lynn MD Specialist Cardiovascular Disease 10/20/20 Beatriz Talbot NP Specialist Cardiology 10/20/20 12/27/22 Nita Gutierrez NP [address] [place] [address] Cardiology 12/28/22 documented as of this encounter
--- OUTSIDE RECORDS SUMMARY | 2024-06-18 14:31 | XMS_ITS | Encounter Summary ---
Author Organization [facility] Address [address] [place] [address] Care Team Providers Care Meter Tester Primary Name Role Phone Geoffrey Lynn MD Unavailable Beatriz Talbot NP Unavailable Unavailab Beti Patrick MD Primary Care Provider [phone] Nita Gutierrez NP Unavailable [phone] Ayesha Marroquin PA-C Primary Care Provider Unavail able Encounter Details Date Type Department Care Team Description 03/04/2022 Orders Only Radiology - [address] [address] Beti Carrion MD [address] [place] [address] Visit for screening mammogram Social History Tobacco Use Types Packs/Day Years [...] as of this encounter Visit Diagnoses Diagnosis Visit for screening mammogram Other screening mammogram documented in this encounter Care Teams Meter Tester Primary Relationship Specialty Start Date End Date Beti Carrion MD [address] [place] [address] PCP - General Internal Medicine 10/04/21 11/20/22 Ayesha Marroquin PA-C [address] [place] [address] PCP - General Internal Medicine 12/29/22 Geoffrey Lynn MD Specialist Cardiovascular Disease 10/20/20 Beatriz Talbot NP Specialist Cardiology 10/20/20 12/27/22 Nita Gutierrez NP [address] [place] [address] Cardiology 12/28/22 documented as of this encounter
--- OUTSIDE RECORDS SUMMARY | 2024-06-18 14:31 | XMS_ITS | Encounter Summary ---
Author Organization [facility] Address [address] [place] [address] Care Team Providers Care Front End Developer Javascript Html Css Name Role Phone Geoffrey Lynn MD Unavailable Beatriz Talbot NP Unavailable Unavailab Beti Patrick MD Primary Care Provider [phone] Nita Gutierrez NP Unavailable [phone] Ayesha Marroquin PA-C Primary Care Provider Unavail able Reason for Visit * Reason Comments E-prescribe Rx Request Encounter Details Date Type Department Care Team Description 11/11/2022 Refill Adult Medicine [address] [address] Star Daven[place], COMMERCIAL LENDING VICE PRESIDENT [address] [place] [address] [phone] E-prescribe Rx Request Social History Tobacco Use [...] on filedocumented in this encounter Care Teams Front End Developer Javascript Html Css Relationship Specialty Start Date End Date Beti Carrion MD [address] [place] [address] PCP - General Internal Medicine 10/04/21 11/20/22 Ayesha Marroquin PA-C [address] [place] [address] PCP - General Internal Medicine 12/29/22 Geoffrey Lynn MD Specialist Cardiovascular Disease 10/20/20 Beatriz Talbot NP Specialist Cardiology 10/20/20 12/27/22 Nita Gutierrez NP [address] [place] [address] Cardiology 12/28/22 documented as of this encounter
--- OUTSIDE RECORDS SUMMARY | 2024-06-18 14:31 | XMS_ITS | Encounter Summary ---
Author Organization [facility] Address [address] [place] [address] Care Team Providers Care Dinkey Operator Slag Name Role Phone Maricarmen Prescott MD Primary Care Provider Unava Geoffrey Guardado MD Unavailable Beatriz Talbot NP Unavailable Unavailab Beti Patrick MD Primary Care Provider [phone] Johan Griffin Primary Care Provider [phone] Nita Gutierrez NP Unavailable [phone] Ayesha Marroquin PA-C Primary Care Provider Unavail able Encounter Details Date Type Department Care Team Description 01/30/2020 [facility] Medical Records [address] [place] [address] Abstract, Provider Social History Tobacco Use Types [...] on filedocumented in this encounter Care Teams Dinkey Operator Slag Relationship Specialty Start Date End Date Maricarmen Prescott MD PCP - General 02/01/07 09/07/21 Beti Carrion MD [address] [place] [address] PCP - General Internal Medicine 10/04/21 11/20/22 Johan Griffin [address] [place] [address] PCP - General Internal Medicine 09/08/21 10/03/21 Ayesha Marroquin PA-C [address] [place] [address] PCP - General Internal Medicine 12/29/22 Geoffrey Lynn MD Specialist Cardiovascular Disease 10/20/20 Beatriz Talbot NP Specialist Cardiology 10/20/20 12/27/22 Nita Gutierrez NP [address] [place] [address] Cardiology 12/28/22 documented as of this encounter
--- OUTSIDE RECORDS SUMMARY | 2024-06-18 14:31 | XMS_ITS | Encounter Summary ---
Author Organization [facility] Address [address] [place] [address] Care Team Providers Care Slusher Operator Name Role Phone Geoffrey Lynn MD Unavailable Beatriz Talbot NP Unavailable Unavailab Beti Patrick MD Primary Care Provider [phone] Nita Gutierrez NP Unavailable [phone] Ayesha Marroquin PA-C Primary Care Provider Unavail able Encounter Details Date Type Department Care Team Description 08/23/2022 [facility] Medical Records [address] [place] [id number] Marco Mc Social History Tobacco Use Types Packs/Day Years [...] Date/Time Associated Diagnosis Comments OUTSIDE EKG Routine 08/23/2022 documented in this encounter Results * OUTSIDE EKG (08/23/2022) Provider Abstract CARDIOLOGY documented in this encounter Visit Diagnoses Not on filedocumented in this encounter Care Teams Slusher Operator Relationship Specialty Start Date End Date Beti Carrion MD [address] [place] [address] PCP - General Internal Medicine 10/04/21 11/20/22 Ayesha Marroquin PA-C [address] [place] [address] PCP - General Internal Medicine 12/29/22 Geoffrey Lynn MD Specialist Cardiovascular Disease 10/20/20 Beatriz Talbot NP Specialist Cardiology 10/20/20 12/27/22 Nita Gutierrez NP [address] [place] [address] Cardiology 12/28/22 documented as of this encounter
--- OUTSIDE RECORDS SUMMARY | 2024-06-18 14:31 | XMS_ITS | Encounter Summary ---
Author Organization [facility] Address [address] [place] [address] Care Team Providers Care Adjustment Examiner Name Role Phone Maricarmen Prescott MD Primary Care Provider Unava ilGeoffrey Hall MD Unavailable Beatriz Talbot NP Unavailable Unavailab Beti Patrick MD Primary Care Provider [phone] Johan Griffin Primary Care Provider [phone] Nita Gutierrez LABOR RELATIONS OR PERSONNEL NEGOTIATOR Unavailable [phone] Ayesha Marroquin PA-C Primary Care Provider Unavail able Reason for Visit * Reason Onset Date Comments refill request 01/06/2017 Encounter Details Date Type Department Care Team Description 01/06/2017 Refill Medicine/Pediatrics - [address] [address] Maricarmen Prescott MD refill request Social History [...] encounter Miscellaneous Notes * Telephone Encounter - Vanessa Duenas MA. - 01/06/2017 11:33 AM EST Faxed to pharmacy * Telephone Encounter - Jordana Prescott RN - 01/06/2017 10:50 AM EST Up to date Last refill 12/09 Lab Results Component Value Date URINEOXYCOD POSITIVE 02/03/2016 URBENZO NEGATIVE 02/03/2016 URAMPHETAMIN NEGATIVE 02/03/2016 URMARIJUANA NEGATIVE 02/03/2016 UROPIATES NEGATIVE 02/03/2016 URBARBITUATE NEGATIVE 02/03/2016 URCOCAINE NEGATIVE 02/03/2016 HYDROCODONE Negative 02/03/2016 Controlled substance contract and last issue date of medication reviewed. Patient is due for medication. * Telephone Encounter - Jerilyn Beltran - 01/06/2017 9:24 AM EST Patient would like script to be: E-PRESCRIBED/FAXED TO PHARMACY WHEN WAS THE PATIENT'S LAST APPOINTMENT IN ADULT MEDICINE? [id number] WHEN WAS THE LAST TIME THE PATIENT SAW THEIR PCP? Same as above Does patient have an upcoming appointment? Yes [id number] (THE MEDICATION REQUESTED IS ON THE MED LIST ABOVE) All of the medications requested were on the CURRENT MEDS list Did you check the Pharmacy information above?: YES Patient wants: 30 -day supply Is this a mail order prescription request ? NO Patients current insurance carrier is: [place] / [place] / Product Type: MEDICARE [id number] documented in this encounter Plan of Treatment Not on file documented as of this encounter Visit Diagnoses Not on filedocumented in this encounter Care Teams Adjustment Examiner Relationship Specialty Start Date End Date Maricarmen Prescott MD PCP - General 02/01/07 09/07/21 Beti Carrion MD [address] [place] [address] PCP - General Internal Medicine 10/04/21 11/20/22 Johan Griffin [address] [place] [address] PCP - General Internal Medicine 09/08/21 10/03/21 Ayesha Marroquin PA-C [address] [place] [address] PCP - General Internal Medicine 12/29/22 Geoffrey Lynn MD Specialist Cardiovascular Disease 10/20/20 Beatriz Talbot NP Specialist Cardiology 10/20/20 12/27/22 Nita Guiterrez NP [address] [place] [address] Cardiology 12/28/22 documented as of this encounter
--- OUTSIDE RECORDS SUMMARY | 2024-06-18 14:31 | XMS_ITS | Encounter Summary ---
Author Organization [facility] Address [address] [place] [address] Care Team Providers Care Call Or Contact Centre Team Leader Name Role Phone Maricarmen Prescott MD Primary Care Provider Unava Geoffrey Guardado MD Unavailable Beatriz Talbot SALES DEVELOPMENT DIRECTOR Unavailable Unavailab Beti Patrick MD Primary Care Provider [phone] Johan Griffin Primary Care Provider [phone] Nita Gutierrez SALES DEVELOPMENT DIRECTOR Unavailable [phone] Ayesha Marroquin PA-C Primary Care Provider Unavail able Encounter Details Date Type Department Care Team Description 12/02/2010 Motor Tune Up Specialist Report Medical Records [address] [place] [address] Omar Stevens MD Social History Tobacco Use Types Packs/Day [...] on filedocumented in this encounter Care Teams Call Or Contact Centre Team Leader Relationship Specialty Start Date End Date Maricarmen Prescott MD PCP - General 02/01/07 09/07/21 Beti Carrion MD [address] [place] [address] PCP - General Internal Medicine 10/04/21 11/20/22 Johan Griffin [address] [place] [address] PCP - General Internal Medicine 09/08/21 10/03/21 Ayesha Marroquin PA-C [address] [place] [address] PCP - General Internal Medicine 12/29/22 Geoffrey Lynn MD Specialist Cardiovascular Disease 10/20/20 Beatriz Talbot NP Specialist Cardiology 10/20/20 12/27/22 Nita Gutierrez NP [address] [place] [address] Cardiology 12/28/22 documented as of this encounter
--- OUTSIDE RECORDS SUMMARY | 2024-06-18 14:31 | XMS_ITS | Encounter Summary ---
Author Organization [facility] Address [address] [place] [address] Care Team Providers Care Middle School Tutor Name Role Phone Geoffrey Lynn MD Unavailable Beatriz Talbot NP Unavailable Unavailab Beti Patrick MD Primary Care Provider [phone] Nita Gutierrez FIELD ARTILLERY CANNONEER Unavailable [phone] Ayesha Marroquin PA-C Primary Care Provider Unavail able Encounter Details Date Type Department Care Team Description 09/30/2022 Cargo Bracer Report Medical Records [address] [place] [address] Ayesha Marroquin PA-C Social History Tobacco Use [...] on filedocumented in this encounter Care Teams Middle School Tutor Relationship Specialty Start Date End Date Beti Carrion MD [address] [place] [address] [phone] PCP - General Internal Medicine 10/04/21 11/20/22 Ayesha Marroquin PA-C [address] [place] [address] PCP - General Internal Medicine 12/29/22 Geoffrey Lynn MD Specialist Cardiovascular Disease 10/20/20 Beatriz Talbot NP Specialist Cardiology 10/20/20 12/27/22 Nita Gutierrez NP [address] [place] [address] Cardiology 12/28/22 documented as of this encounter
--- OUTSIDE RECORDS SUMMARY | 2024-06-18 14:31 | XMS_ITS | Encounter Summary ---
Author Organization [facility] Address [address] [place] [address] Care Team Providers Care Used Car Manager Name Role Phone Maricarmen Prescott MD Primary Care Provider Unava Geoffrey Guardado MD Unavailable Beatriz Talbot NP Unavailable Unavailab Beti Patrick MD Primary Care Provider [phone] Johan Griffin Primary Care Provider [phone] Nita Gutierrez NP Unavailable [phone] Ayesha Marroquin PA-C Primary Care Provider Unavail able Encounter Details Date Type Department Care Team Description 05/16/2017 Business Doc Medical Records [address] [place] [address] Abstract, Provider Social History Tobacco Use Types [...] on filedocumented in this encounter Care Teams Used Car Manager Relationship Specialty Start Date End Date Maricarmen Prescott MD PCP - General 02/01/07 09/07/21 Beti Carrion MD [address] [place] [address] PCP - General Internal Medicine 10/04/21 11/20/22 Johan Griffin [address] [place] [address] PCP - General Internal Medicine 09/08/21 10/03/21 Ayesha Marroquin PA-C [address] [place] [address] PCP - General Internal Medicine 12/29/22 Geoffrey Lynn MD Specialist Cardiovascular Disease 10/20/20 Beatriz Talbot NP Specialist Cardiology 10/20/20 12/27/22 Nita Gutierrez NP [address] [place] [address] Cardiology 12/28/22 documented as of this encounter
--- OUTSIDE RECORDS SUMMARY | 2024-06-18 14:31 | XMS_ITS | Encounter Summary ---
Author Organization [facility] Address [address] [place] [address] Care Team Providers Care Ship Engines Operating Engineer Name Role Phone Maricarmen Prescott MD Primary Care Provider Unava ilable Geoffrey Lynn MD Unavailable Beatriz Talbot NP Unavailable Unavailab Beti Patrick MD Primary Care Provider [phone] Johan Griffin Primary Care Provider [phone] Nita Gutierrez NP Unavailable [phone] Ayesha Marroquin PA-C Primary Care Provider Unavail able Encounter Details Date Type Department Care Team Description 06/10/2019 Apprentice Electrician Report Medical Records [address] [place] [address] Geoffrey Lynn MD [address] [place] [address] [phone] Social History Tobacco Use Types Packs/Day Years [...] on filedocumented in this encounter Care Teams Ship Engines Operating Engineer Relationship Specialty Start Date End Date Maricarmen Prescott MD PCP - General 02/01/07 09/07/21 Beti Carrion MD [address] [place] [address] PCP - General Internal Medicine 10/04/21 11/20/22 Johan Griffin [address] [place] [address] PCP - General Internal Medicine 09/08/21 10/03/21 Ayesha Marroquin PA-C [address] [place] [address] PCP - General Internal Medicine 12/29/22 Geoffrey Lynn MD Specialist Cardiovascular Disease 10/20/20 Beatriz Talbot NP Specialist Cardiology 10/20/20 12/27/22 Nita Gutierrez NP [address] [place] [address] Cardiology 12/28/22 documented as of this encounter
--- OUTSIDE RECORDS SUMMARY | 2024-06-18 14:31 | XMS_ITS | Encounter Summary ---
Author Organization [facility] Address [address] [place] [address] Care Team Providers Care Education Department Chair Name Role Phone Maricarmen Prescott MD Primary Care Provider Unava Geoffrey Guardado MD Unavailable Beatriz Talbot NP Unavailable Unavailab Beti Patrick MD Primary Care Provider [phone] Johan Griffin Primary Care Provider [phone] Nita Gutierrez MANUFACTURING HELPER Unavailable [phone] Ayesha Mraroquin PA-C Primary Care Provider Unavail able Encounter Details Date Type Department Care Team Description 01/02/2017 Bleacher Lard Report Medical Records [address] [place] [address] Jemima Clay MD Social History Tobacco Use [...] on filedocumented in this encounter Care Teams Education Department Chair Relationship Specialty Start Date End Date Maricarmen Prescott MD PCP - General 02/01/07 09/07/21 Beti Carrion MD [address] [place] [address] PCP - General Internal Medicine 10/04/21 11/20/22 Johan Griffin [address] [place] [address] PCP - General Internal Medicine 09/08/21 10/03/21 Ayesha Marroquin PA-C [address] [place] [address] PCP - General Internal Medicine 12/29/22 Geoffrey Lynn MD Specialist Cardiovascular Disease 10/20/20 Beatriz Talbot NP Specialist Cardiology 10/20/20 12/27/22 Nita Gutierrez NP [address] [place] [address] Cardiology 12/28/22 documented as of this encounter
--- OUTSIDE RECORDS SUMMARY | 2024-06-18 14:31 | XMS_ITS | Encounter Summary ---
Author Organization [facility] Address [address] [place] [address] Care Team Providers Care City Dispatch Supervisor Name Role Phone Maricarmen Prescott MD Primary Care Provider Unava ilGeoffrey Hall MD Unavailable Beatriz Talbot NP Unavailable Unavailab Beti Patrick MD Primary Care Provider [phone] Johan Griffin Primary Care Provider [phone] Nita Gutierrez TELEVISION REPORTER Unavailable [phone] Ayesha Marroquin PA-C Primary Care Provider Unavail able Reason for Visit * Reason Onset Date Comments Faxed Refill 01/10/2020 Encounter Details Date Type Department Care Team Description 01/10/2020 Refill Medicine/Pediatrics - [address] [phone] Maricarmen Prescott MD Faxed Refill Social History Tobacco Use Types Packs/Day Years [...] encounter Miscellaneous Notes * Telephone Encounter - Jerilyn Beltran - 01/10/2020 2:04 PM EST Patient would like script to be: E-PRESCRIBED/FAXED TO PHARMACY WHEN WAS THE PATIENT'S LAST APPOINTMENT IN ADULT MEDICINE? 12/13/2019 WHEN WAS THE LAST TIME THE PATIENT SAW THEIR PCP? Same as above Does patient have an upcoming appointment? no (THE MEDICATION REQUESTED IS ON THE MED [...] / [place] / Product Type: [place]ARE [id number] documented in this encounter Plan of Treatment Not on file documented as of this encounter Visit Diagnoses Diagnosis Essential hypertension Unspecified essential hypertension documented in this encounter Care Teams City Dispatch Supervisor Relationship Specialty Start Date End Date Maricarmen Prescott MD PCP - General 02/01/07 09/07/21 Beti Carrion MD [address] [place] [address] [phone] PCP - General Internal Medicine 10/04/21 11/20/22 Johan Griffin [address] [place] [address] PCP - General Internal Medicine 09/08/21 10/03/21 Ayesha Marroquin PA-C [address] [place] [address] PCP - General Internal Medicine 12/29/22 Geoffrey Lynn MD Specialist Cardiovascular Disease 10/20/20 Beatriz Talbot NP Specialist Cardiology 10/20/20 12/27/22 Nita Gutierrez NP [address] [place] [address] Cardiology 12/28/22 documented as of this encounter
[2024-06-18 14:44] LABS: Anion Gap 11 (12-20); Blood Urea Nitrogen 14 mg/dL (9-16); Calcium 10.1 mg/dL (8.4-10.2); Carbon Dioxide 26 mmol/L (22-29); Chloride 102 mmol/L (96-108); Estimated Glomerular Filt Rate > 60; Potassium 4.2 mmol/L (3.3-5.1); Sodium 135 mmol/L (135-145)
[2024-06-18 14:46] LABS: Alanine Aminotransferase 22 U/L (0-31); Albumin Level 4.4 g/dL (3.5-5.0); Alkaline Phosphatase 98 U/L (39-117); Anion Gap 11 (12-20); Aspartate Amino Transferase 34 U/L (5-31); Bilirubin Total 0.5 mg/dL (0.0-1.0); Blood Urea Nitrogen 15 mg/dL (9-16); Carbon Dioxide 27 mmol/L (22-29); Chloride 102 mmol/L (96-108); Estimated Glomerular Filt Rate > 60; Glucose Fasting 100 mg/dL (60-99); Potassium 4.3 mmol/L (3.3-5.1); Sodium 136 mmol/L (135-145); Total Protein 7.8 g/dL (6.5-8.0)
[2024-06-18 15:02] LABS: Vitamin D 25-OH Total 44.2 ng/mL (>30)
[2024-06-18 15:05] LABS: Parathyroid Hormone Intact 104.7 pg/mL (8.7-77.1)
[2024-06-18 15:06] LABS: TSH reflex Free T4 2.56 uIU/mL (0.32-4.0)
== END 2024-06-18 12:07 | disposition home or self-care (01) ==
LOC: HO.WFDLDS 12:06
PROVIDERS: Referring Provider Internal Medicine Nephrology; Visit Provider Physician Assistant
DX: E87.1 Hypo-osmolality and hyponatremia (principal); D64.9 Anemia, unspecified; F33.1 Major depressive disorder, recurrent, moderate; F41.1 Generalized anxiety disorder; I10 Essential (primary) hypertension; J44.9 Chronic obstructive pulmonary disease, unspecified; R06.09 Other forms of dyspnea
CPT/HCPCS: 36415; 80051; 80053; 82306; 82310; 82565; 83970; 84443; 84520; 85025

== ENCOUNTER 2024-06-19 13:36 | Outpatient (AMB) | payer MEDICARE, MEDICAID, SELFPAY ==
[2024-06-19 13:40] VITALS: BP 132/72; PULSE 78; RESP 14; O2SAT 97; BMI 33.9
--- NOTE | 2024-06-19 13:40 | A.OFFPC_ITS ---
Vital Signs 06/19/24 13:40 Height 5 ft 3 in Weight 191 lb 8 oz BMI 33.9 BP 132/72 Blood Pressure Location Rt brachial Position Sitting Respiration 14 Pulse 78 Pulse Source Pulse Oximeter Pulse Oximetry (%) 97 Oxygen Delivery Method Room Air Intake Visit Reasons: anxiety, bp, labs 30 min needed Intake Note: Follow up htn and labs. Protective Services Social Worker Required: No Allergies codeine Allergy (Intermediate, Verified 06/19/24 13:41) headache duloxetine [From Cymbalta] Allergy (Mild, Verified 06/19/24 13:41) Itching Tobacco use date assessed: 06/19/24 Fall risk assessment: 1 Fall in past year Last assessed Fall Risk: 06/19/24 Dental Screening Dental Screen Date: 06/08/23 HPI anxiety, bp, labs 30 min needed HPI Details Patient is an 79-year-old female who presents today for a follow up. Wants to switch magnesium supplement because she read that the glycinate can be better for her body than oxide. CV: Blood pressure today in the office is 132/72. She is currently on metoprolol 12.5 mg twice a day, isosorbide 30 mg daily. Cholesterol is controlled with atorvastatin 40 mg. She had a neg stress and cath this year despite the calcifications seen on CT. Has cardiology follow up with [facility]. Pulm: Sees pulmonology and was started on Breo. Has albuterol to use as needed. Heme: had radha not on iron. Follows with Dr. Contreras at [facility].. She sees him q 6 months for this and mgus. Saw GI for a colonoscopy and endoscopy in 2019 (no report available) Nephro: following with Dr. Barrera and fluid restricted for the hyponatremia. Endo: She was following with endo for hyperparathyroidism in [place] but does not like him that much and wants a new doc/second opinion. States she is overdue for the bone density Musculoskeletal: following with [facility] Psych: doing better with the ativan. She is on zoloft and buspar. She left [facility] as Mariah was too young to see her . Canceled/broke a few appointments. She does admit it would be helpful to see someone. -Her daughter is very az[place] and lectures her a lot. She states her son is mentally sick and constantly depressed. She states she was crying today because her son is homeless. She states she is also stressed her grandson who is currently living in [facility]. She denies any SI/HI. Derm: Has been trying to increase her biotin. Followed with Dermatology for her hair growth and they told her that there was nothing really she could do besides that. [facility] Medical History (Updated 02/08/24 @ 15:17 by Ayesha Marroquin PA-C) Insomnia Chronic fatigue IBS (irritable bowel syndrome) GERD (gastroesophageal reflux disease) Osteoporosis Fibromyalgia Depression, major, recurrent, moderate Generalized anxiety disorder CAD (coronary artery disease) Hyperlipidemia HTN (hypertension), benign Diverticulitis FHx: total knee replacement Surgical History S/P hip replacement H/O shoulder replacement Social History (Updated 06/19/24 @ 14:44 by Lorenza Doran CMA) Housing: Other Housing Other:: Mobile home Alcohol intake: current Patient Tobacco Use Status: Former Tobacco user Tobacco use type: Cigarette Years Smoked: 16 years total. Smoked socially. quit 25 years ago e-Cigarette/Vaping Use: Never Used Second Hand Smoke Exposure: Yes Use of substances other than those prescribed or required for medical reasons: No service: No Current occupational status: retired Cognitive needs: No Hearing needs: No Vision needs: No Questionnaire PHQ-9 Over the last 2 weeks, how often have you been bothered by any of the following problems? 1. Little interest or pleasure in doing things: nearly every day 2. Feeling down, depressed, or hopeless: several days 3. Trouble falling or staying asleep, or sleeping too much: nearly every day 4. Feeling tired or having little energy: nearly every day 5. Poor appetite or overeating: nearly every day 6. Feeling bad about yourself - or that you are a failure or have let yourself or your family down: not at all 7. Trouble concentrating on things, such as reading the newspaper or watching television: several days 8. Moving or speaking so slowly that other people could have noticed. Or the opposite - being so fidgety or restless that you have been moving around a lot more than usual: not at all 9. Thoughts that you would be better off or of hurting yourself in some way: not at all Total score: 14 Depression Screening Interpretation: Positive Depression Screening Done: Yes 86584 - PHQ-9 Billing: Yes Source: Developed by Drs. Johnathan Landeros, Yanelis Maldonado, Dutch Vogel and colleagues, with an educational rambo from [employer]. Thrive Questionnaire Date Thrive assessed: 06/19/24 I am a: Patient What is your living situation today?: I have a steady place to live Within the past 12 months, did the food you bought not last and you didn't have the money to get more?: I choose not to answer this question Within the past 12 months, did you worry whether your food would run out before you got money to buy more?: Sometimes True Do you have trouble paying for medicines?: No Do you have trouble getting transportation to medical appointments?: No Do you have trouble paying your heating and electricity bill?: Yes Do you have trouble with day-to-day activities such as bathing, preparing meals, shopping, managing finances, etc.?: I choose not to answer this question Are you currently unemployed and looking for a job?: I choose not to answer this question Please select the resources that you would like help with: Utilities Currently or been in a relationship where the following occur: No concerns reported THRIVE Score: 2 AUDIT C Alcohol Use Questionnaire (AUDIT-C) 1. How often do you have a drink containing alcohol?: Monthly or less 2. How many drinks containing alcohol do you have on a typical day when you are drinking?: 1 or 2 3. How often do you have six or more drinks on one occasion?: Never Total Score: 1 MAYTE-7 AMB Questionnaire MAYTE-7 Date MAYTE - 7 assessed: 06/08/23 Feeling nervous, anxious, or on edge: 0 = Not at all Not being able to stop or control worryin = Several days Worrying too much about different things: 1 = Several days Trouble relaxin = Not at all Being so restless that it is hard to sit still: 0 = Not at all Becoming easily annoyed or irritable: 0 = Not at all Feeling afraid as if something awful might happen: 0 = Not at all Total MAYTE-7 score (0-4 normal; 5-9 mild; 10-14 moderate; 15-21 severe): 2 Source: Developed by Drs. Johnathan LYanelis Thompson Kurt Kroenke and colleagues, with an educational rambo from [employer]. MAYTE-7 Assessment Billing MAYTE-7 Assessment Tool: MAYTE-7 Assessment 88823 Physical exam (Primary Care) Vital Signs: Last Vital Signs Pulse 78 06/19/24 13:40 Resp 14 06/19/24 13:40 BP 132/72 06/19/24 13:40 Pulse Ox 97 06/19/24 13:40 Oxygen Delivery Method Room Air 06/19/24 13:40 BMI result Body Mass Index 33.9 Tobacco/Smoking Status: Tobacco use Status Tobacco use date assessed 06/19/24 06/19/24 13:47 Patient Tobacco Use Status Former Tobacco user 06/19/24 13:47 Tobacco use type Cigarette 06/19/24 13:47 e-Cigarette/Vaping Use Never Used 06/19/24 13:47 PHQ-9: PHQ-9 Score PHQ-9: Total score 14 06/19/24 14:44 Depression Screening Interpretation: Positive Thrive Assessment: Date of Thrive Assessment Date Thrive assessed 06/19/24 06/19/24 14:44 Currently or been in a relationship where the following occur: No concerns reported Const Orientation/consciousness: patient oriented x3 HENMT Ears: hearing grossly normal bilaterally Neck Thyroid: Thyroid normal Lymphatic: no lymphadenopathy noted Resp Auscultation: clear to auscultation bilaterally Cardio Rate: regular rate Rhythm: regular rhythm Heart sounds: S1 normal heart sound present and S2 normal heart sound present GI Inspection: Yes normal to inspection Palpation (GI): Soft to palpation and Other GI palpation findings present (nontender, no cva tenderness) Auscultation: normoactive bowel sounds Rectal Exam - Female: deferred Skin General skin exam: no rashes or lesions noted Neuro General: patient oriented x3, gait normal and no focal motor deficits Results Reviewed Results Reviewed: Laboratory Tests 10/19/23 06/18/24 13:58 12:12 WBC 4.2 L RBC 3.78 L Hgb 11.8 L Hct 35.3 L Plt Count 226 Sodium 137 135 Potassium 4.4 4.2 Chloride 104 102 Carbon Dioxide 27 26 Anion Gap 10 L 11 L BUN 13 14 Creatinine 0.78 0.73 Estimated GFR > 60 > 60 Random Glucose 96 Fasting Glucose 100 H Calcium 10.0 10.1 Iron 65 TIBC 262 % Saturation 25 Ferritin 51 Total Bilirubin 0.3 0.5 AST 24 34 H ALT 13 22 Alkaline Phosphatase 88 98 Total Protein 7.8 Albumin 4.4 Folate > 20.0 25-OH Vitamin D Total 44.2 TSH 3.43 2.56 PTH Intact 104.7 H Coding Level of Care Code Est Pt Level 4 (73321) Complex EM visit Add On G2211 Diagnoses Hyperparathyroidism E21.3 Depression, major, recurrent, moderate F33.1 Generalized anxiety disorder F41.1 Mixed hyperlipidemia E78.2 Hyperlipidemia type: mixed hyperlipidemia HTN (hypertension), benign I10 Additional Codes MAYTE-7 Assessment Billing - MAYTE-7 Assessment Tool: MAYTE-7 Assessment 52019 ([id number]) PHQ-9 - 56149 - PHQ-9 Billing: Yes ([id number]) Assessment & Plan Assessment & Plan (1) Hyperparathyroidism: Code(s): E21.3 - Hyperparathyroidism, unspecified Category: Medical Plan: referral to endo bone density ordered (2) Depression, major, recurrent, moderate: Code(s): F33.1 - Major depressive disorder, recurrent, moderate Category: Medical Plan: stable thinking about seeing a therapist no si/hi (3) Generalized anxiety disorder: Code(s): F41.1 - Generalized anxiety disorder Category: Medical Plan: as above (4) Hyperlipidemia: Code(s): E78.5 - Hyperlipidemia, unspecified Category: Medical Qualifiers: Hyperlipidemia type: mixed hyperlipidemia Qualified Code(s): E78.2 - Mixed hyperlipidemia Plan: continue lipitor (5) HTN (hypertension), benign: Code(s): I10 - Essential (primary) hypertension Category: Medical Plan: wnl continue current plan Orders: Orders XR DEXA axial skeleton Today E21.3 - Hyperparathyroidism, unspecified, E83.52 - Hypercalcemia, Z87.891 - Personal history of nicotine dependence Referrals Endocrinology Referral E21.3 - Hyperparathyroidism, unspecified Medications: New magnesium glycinate 100 mg PO DAILY 90 tabs 1RF Discontinued magnesium oxide Discontinued Reason: Doctor's Order 400 mg PO DAILY 90 tabs 1RF
--- OUTSIDE RECORDS SUMMARY | 2024-06-19 16:12 | XMS_ITS | Encounter Summary ---
Author Organization [email or web address] Address [address] [place] [address] Care Team Providers Care Manager Cash Name Role Phone Geoffrey Lynn MD Unavailable Nita Gutierrez NP Unavailable [phone] Ayesha Marroquin PA-C Primary Care Provider Unavail able Encounter Details Date Type Department Care Team Description 09/12/2023 Orders Only Cardio PVC POC [address] [facility] [address] [place] [address] Default, Provider Social History Tobacco Use Types [...] filedocumented in this encounter Care Teams Manager Cash Relationship Specialty Start Date End Date Ayesha Marroquin PA-C PCP - General Internal Medicine 11/2/23 Geoffrey Lynn MD Specialist Cardiovascular Disease 10/20/20 Nita Gutierrez NP Cardiology 12/28/22 documented as of this encounter
--- OUTSIDE RECORDS SUMMARY | 2024-06-19 16:12 | XMS_ITS | Encounter Summary ---
Author Organization [facility] Address [address] [place] [address] Care Team Providers Care Wrecker Operator Name Role Phone Maricarmen Prescott MD Primary Care Provider Unava Geoffrey Guardado MD Unavailable Beatriz Talbot GOLD LEAF GILDER Unavailable Unavailab Beti Patrick MD Primary Care Provider [phone] Johan Griffin Primary Care Provider [phone] Nita Gutierrez GOLD LEAF GILDER Unavailable [phone] Ayesha Marroquin PA-C Primary Care Provider Unavail able Encounter Details Date Type Department Care Team Description 04/29/2013 Release of Information Medical Records [address] [place] [id number] Abstract, Provider Social History Tobacco Use Types [...] on filedocumented in this encounter Care Teams Wrecker Operator Relationship Specialty Start Date End Date Maricarmen Prescott MD PCP - General 02/01/07 09/07/21 Beti Carrion MD [address] [place] [address] PCP - General Internal Medicine 10/04/21 11/20/22 Johan Griffin [address] [place] [address] PCP - General Internal Medicine 09/08/21 10/03/21 Ayesha Marroquin PA-C [address] [place] [address] PCP - General Internal Medicine 12/29/22 Geoffrey Lynn MD Specialist Cardiovascular Disease 10/20/20 Beatriz Talbot NP Specialist Cardiology 10/20/20 12/27/22 Nita Gutierrez NP [address] [place] [address] Cardiology 12/28/22 documented as of this encounter
--- OUTSIDE RECORDS SUMMARY | 2024-06-19 16:12 | XMS_ITS | Encounter Summary ---
Author Organization [facility] Address [address] [place] [address] Care Team Providers Care Benzene Worker Name Role Phone Geoffrey Lynn MD Unavailable Nita Gutierrez NP Unavailable [phone] Ayesha Marroquin PA-C Primary Care Provider Unavail able Encounter Details Date Type Department Care Team Description 10/11/2023 Hospital Medical Records [address] [place] [address] Social History Tobacco Use Types Packs/Day Years [...] on filedocumented in this encounter Care Teams Benzene Worker Relationship Specialty Start Date End Date Ayesha Marroquin PA-C PCP - General Internal Medicine 12/29/22 Geoffrey Lynn MD Specialist Cardiovascular Disease 10/20/20 Nita Gutierrez NP Cardiology 12/28/22 documented as of this encounter
--- OUTSIDE RECORDS SUMMARY | 2024-06-19 16:12 | XMS_ITS | Encounter Summary ---
Author Organization [facility] Address [address] [place] [address] Care Team Providers Care Embossed Or Impressed Lettering Painter Name Role Phone Maricarmen Prescott MD Primary Care Provider Unava Geoffrey Guardado MD Unavailable Beatriz Talbot NP Unavailable Unavailab Beti Patrick MD Primary Care Provider [phone] Johan Griffin Primary Care Provider [phone] Nita Gutierrez NP Unavailable [phone] Ayesha Marroquin PA-C Primary Care Provider Unavail able Encounter Details Date Type Department Care Team Description 05/03/2013 Telephone Medicine/Pediatrics - [address] [phone] Maricarmen Prescott MD Social History Tobacco Use [...] on filedocumented in this encounter Care Teams Embossed Or Impressed Lettering Painter Relationship Specialty Start Date End Date Maricarmen Prescott MD PCP - General 02/01/07 09/07/21 Beti Carrion MD [address] [place] [address] PCP - General Internal Medicine 10/04/21 11/20/22 Johan Griffin [address] [place] [address] PCP - General Internal Medicine 09/08/21 10/03/21 Ayesha Marroquin PA-C [address] [place] [address] PCP - General Internal Medicine 12/29/22 Geoffrey Lynn MD Specialist Cardiovascular Disease 10/20/20 Beatriz Talbot NP Specialist Cardiology 10/20/20 12/27/22 Nita Gutierrez NP [address] [place] [address] Cardiology 12/28/22 documented as of this encounter
--- OUTSIDE RECORDS SUMMARY | 2024-06-19 16:12 | XMS_ITS | Encounter Summary ---
Author Organization [facility] Address [address] [place] [address] Care Team Providers Care Paper Novelty Maker Name Role Phone Geoffrey Lynn MD Unavailable Nita Gutierrez NP Unavailable [phone] Ayesha Marroquin PA-C Primary Care Provider Unavail able Reason for Visit * Reason Onset Date Comments Hospital Procedure 10/12/2023 CATH Encounter Details Date Type Department Care Team Description 10/12/2023 Telephone Cardio PVCA Diag Testing 101 [address] [facility] [address] [place] [address] Geoffrey Lynn MD [address] [place], [place] [phone] Hospital Procedure (CATH) Social History Tobacco Use Types Packs/Day Years [...] * Telephone Encounter - Becki Herrera - 10/13/2023 8:[address] Lynn's response below * Telephone Encounter - Celia Dinh RN - 10/12/2023 10:48 AM EDT Called pt this AM. Made aware there were no interventions during the recent cardiac cath and that results indicating that she had a false positive stress test. Results scanned into EPIC for review. Still has additional questions. Is aware she has a f/u OV in October to discuss further. Wants toknow about her continued s/s - SOB/ANDERSON, fatigue and what she should do until her OV in October. * Telephone Encounter - Cydney Cruz - 10/12/2023 10:18 AM EDT Patient had her cath procedure don yesterday by Dr Devine at [facility]. She has questions on what happened during the procedure and what was found. She said There was a lot of confusion with a blockage that could not be found. Shed like the notes reviewed and a call to discuss further. documented in this encounter Plan of Treatment Not on file documented as of this encounter Visit Diagnoses Not on filedocumented in this encounter Care Teams Paper Novelty Maker Relationship Specialty Start Date End Date Ayesha Marroquin PA-C PCP - General Internal Medicine 12/29/22 Geoffrey Lynn MD Specialist Cardiovascular Disease 10/20/20 Nita Gutierrez NP Cardiology 12/28/22 documented as of this encounter
--- OUTSIDE RECORDS SUMMARY | 2024-06-19 16:13 | XMS_ITS | Encounter Summary ---
Author Organization [facility] Address [address] [place] [address] Care Team Providers Care Oxyacetylene Torch Operator Name Role Phone Maricarmen Prescott MD Primary Care Provider Unava ilGeoffrey Hall MD Unavailable Beatriz Talbot NP Unavailable Unavailab Beti Patrick MD Primary Care Provider [phone] Johan Griffin Primary Care Provider [phone] Nita Gutierrez AUTOMATIC FABRIC CUTTER Unavailable [phone] Ayesha Marroquin PA-C Primary Care Provider Unavail able Reason for Visit * Reason Onset Date Comments Pre Op Visit 01/22/2018 Encounter Details Date Type Department Care Team Description 01/22/2018 Telephone Medicine/Pediatrics - [address] [address] Maricarmen Prescott MD Pre Op Visit Social History Tobacco Use Types Packs/Day Years [...] encounter Miscellaneous Notes * Telephone Encounter - Hien Aquino - 01/22/2018 11:52 AM EST This is an internal pre op. I don't schedule these. * Telephone Encounter - Vianney Guerra - 01/22/2018 11:35 AM EST Pt needs to change her pre op tomorrow to either later or Monday Awaiting call back documented in this encounter Plan of Treatment Not on file documented as of this encounter Visit Diagnoses Not on filedocumented in this encounter Care Teams Oxyacetylene Torch Operator Relationship Specialty Start Date End Date Maricarmen Prescott MD PCP - General 02/01/07 09/07/21 Beti Carrion MD [address] [place] [address] PCP - General Internal Medicine 10/04/21 11/20/22 Johan Griffin [address] [place] [address] PCP - General Internal Medicine 09/08/21 10/03/21 Ayesha Marroquin PA-C [address] [place] [address] PCP - General Internal Medicine 12/29/22 Geoffrey Lynn MD Specialist Cardiovascular Disease 10/20/20 Beatriz Talbot NP Specialist Cardiology 10/20/20 12/27/22 Nita Gutierrez NP [address] [place] [address] Cardiology 12/28/22 documented as of this encounter
--- OUTSIDE RECORDS SUMMARY | 2024-06-19 16:13 | XMS_ITS | Encounter Summary ---
Author Organization [facility] Address [address] [place] [address] Care Team Providers Care Steam Crane Operator Name Role Phone Maricarmen Prescott MD Primary Care Provider Unava Geoffrey Guardado MD Unavailable Beatriz Talbot POOL SERVICER Unavailable Unavailab Beti Patrick MD Primary Care Provider [phone] Johan Griffin Primary Care Provider [phone] Nita Gutierrez POOL SERVICER Unavailable [phone] Ayesha Marroquin PA-C Primary Care Provider Unavail able Encounter Details Date Type Department Care Team Description 10/08/2009 Flame Cutting Machine Operator Helper Report Medical Records [address] [place] [address] Arnold King Social History Tobacco Use Types [...] on filedocumented in this encounter Care Teams Steam Crane Operator Relationship Specialty Start Date End Date Maricarmen Prescott MD PCP - General 02/01/07 09/07/21 Beti Carrion MD [address] [place] [address] PCP - General Internal Medicine 10/04/21 11/20/22 Johan Griffin [address] [place] [address] PCP - General Internal Medicine 09/08/21 10/03/21 Ayesha Marroquin PA-C [address] [place] [address] PCP - General Internal Medicine 12/29/22 Geoffrey Lynn MD Specialist Cardiovascular Disease 10/20/20 Beatriz Talbot NP Specialist Cardiology 10/20/20 12/27/22 Nita Gutierrez NP [address] [place] [address] Cardiology 12/28/22 documented as of this encounter
--- OUTSIDE RECORDS SUMMARY | 2024-06-19 16:13 | XMS_ITS | Encounter Summary ---
Author Organization [facility] Address [address] [place] [address] Care Team Providers Care Transporter Driver Name Role Phone Maricarmen Prescott MD Primary Care Provider Unava Geoffrey Guardado MD Unavailable Beatriz Talbot NP Unavailable Unavailab Beti Patrick MD Primary Care Provider [phone] Johan Griffin Primary Care Provider [phone] Nita Gutierrez NP Unavailable [phone] Ayesha Marroquin PA-C Primary Care Provider Unavail able Encounter Details Date Type Department Care Team Description 01/30/2018 [facility] Medical Records [address] [place] [address] Abstract, Provider Social History Tobacco Use Types [...] on filedocumented in this encounter Care Teams Transporter Driver Relationship Specialty Start Date End Date Maricarmen Prescott MD PCP - General 02/01/07 09/07/21 Beti Carrion MD [address] [place] [address] PCP - General Internal Medicine 10/04/21 11/20/22 Johan Griffin [address] [place] [address] PCP - General Internal Medicine 09/08/21 10/03/21 Ayesha Marroquin PA-C [address] [place] [address] PCP - General Internal Medicine 12/29/22 Geoffrey Lynn MD Specialist Cardiovascular Disease 10/20/20 Beatriz Talbot NP Specialist Cardiology 10/20/20 12/27/22 Nita Gutierrez NP [address] [place] [address] Cardiology 12/28/22 documented as of this encounter
--- OUTSIDE RECORDS SUMMARY | 2024-06-19 16:13 | XMS_ITS | Encounter Summary ---
Author Organization [facility] Address [address] [place] [address] Care Team Providers Care Yacht Master Name Role Phone Geoffrey Lynn MD Unavailable Nita Gutierrez NP Unavailable [phone] Ayesha Marroquin PA-C Primary Care Provider Unavail able Reason for Visit * Reason Onset Date Comments other 08/02/2023 Testing? Encounter Details Date Type Department Care Team Description 08/02/2023 Telephone Cardio PVCA Diag Testing 101 [address] [facility] [address] [place] [address] Geoffrey Lynn MD [address] [place], [place] [phone] other (Testing? ) Social History Tobacco Use [...] background, she underwent a stress echo at [facility] 01/2023 and there was a concern [...] with it. Please call her back at . documented in this encounter Plan of Treatment Not on file documented as of this encounter Visit Diagnoses Not on filedocumented in this encounter Care Teams Yacht Master Relationship Specialty Start Date End Date Ayesha Marroquin PA-C PCP - General Internal Medicine 12/29/22 Geoffrey Lynn MD Specialist Cardiovascular Disease 10/20/20 Nita Gutierrez NP Cardiology 12/28/22 documented as of this encounter
--- OUTSIDE RECORDS SUMMARY | 2024-06-19 16:13 | XMS_ITS | Encounter Summary ---
Author Organization [facility] Address [address] [place] [address] Care Team Providers Care Optometric Technician Name Role Phone Maricarmen Prescott MD Primary Care Provider Unava Geoffrey Guardado MD Unavailable Beatriz Talbot NP Unavailable Unavailab Beti Patrick MD Primary Care Provider [phone] Johan Griffin Primary Care Provider [phone] Nita Gutierrez CERAMICS ENGINEER Unavailable [phone] Ayesha Marroquin PA-C Primary Care Provider Unavail able Encounter Details Date Type Department Care Team Description 11/22/2018 [facility] Report Medical Records [address] [place] [address] Maricarmen Prescott MD Social History Tobacco Use [...] on filedocumented in this encounter Care Teams Optometric Technician Relationship Specialty Start Date End Date Maricarmen Prescott MD PCP - General 12/6/07 7/12/22 Beti Carrion MD [address] [place] [address] PCP - General Internal Medicine 10/04/21 11/20/22 Johan Griffin [address] [place], [place] [phone] PCP - General Internal Medicine 09/08/21 10/03/21 Ayesha Marroquin PA-C [address] [place] [address] PCP - General Internal Medicine 12/29/22 Geoffrey Lynn MD Specialist Cardiovascular Disease 10/20/20 Beatriz Talbot NP Specialist Cardiology 10/20/20 12/27/22 Nita Gutierrez NP [address] [place] [address] Cardiology 12/28/22 documented as of this encounter
--- OUTSIDE RECORDS SUMMARY | 2024-06-19 16:13 | XMS_ITS | Clinical Summary ---
Author Organization [address] [place] [address] [place] [phone] Phone Care Team Providers Care Food Storeroom Clerk Name Role Phone Ayesha Marroquin Primary Care Provider [phone] Allergies Active Allergy Reactions Criticality Noted Date [...] 12/29/2022 COPD (chronic obstructive pu lmonary disease) ([facility] V24, [facility] V28) 12/29/2022 Dyspnea on exertion 12/29/2022 Hyponatremia [...] Type Department Care Team Description 04/18/2024 Telephone [facility] [address] [place] [address] Ayesha Marroquin PA Medical Records 03/27/2024 1:30 PM EST Office Visit [facility] Hematology Oncology [address] [place] [address] Kristi Contreras MD IgG monoclonal [...] 06/05; 05/30; fingeroth OTHER SURGICAL HISTORY PROCEDURE: MS CHOLECYSTECTOMY W/EXPLORATION COMMON DUCT FOOT SURGERY PROCEDURE: HISTORICAL FOOT SURGERY; COMMENT: left foot pin placed BUNIONECTOMY PROCEDURE: BUNION SURGERY, SIMPLE REMOVAL; COMMENT: bilateral OTHER SURGICAL HISTORY PROCEDURE: MS COLECTOMY PRTL W/COLOST/ILEOST & MUCOFISTULA; COMMENT: diverticulitis CERVICAL BIOPSY W/ LOOP ELEC TRODE EXCISION PROCEDURE: HISTORICAL CONE BIOPSY COLONOSCOPY 2003 PROCEDURE: OUTSIDE COLONOSCOPY; COMMENT: tics OTHER SURGICAL HISTORY [facility] PROCEDURE: COLON CA SCRN NOT HI RSK IND; COMMENT: tics and hemorrhoids; would not repeat ESOPHAGOGASTRODUODENOSCOPY 11/19/[facility] PROCEDURE: MS EGD TRANSORAL BIOPSY SINGLE/MULTIPLE; COMMENT: gastric erythema; nl appearing esophagus, dilated empirically to 20 mm; reactive antral changes w/o H. pylori; nl esoph. bxys SHOULDER SURGERY 01/08/2019 Right PROCEDURE: HISTORICAL SHOULDER SURGERY; COMMENT: arthroplasty; Dr. Clay ESOPHAGOGASTRODUODENOSCOPY 02/18/2021 PROCEDURE: MS EGD TRANSORAL BIOPSY SINGLE/MULTIPLE; COMMENT: retained bile. [...] (gastroesophageal reflux disease); COMMENT: Dr. Grossman Osteomyelitis ([facility] V24, [facility] V28) 2001 DX:Osteomyelitis ([facility]); COMM ENT: spine Other specified personal his [...] Relation Name Status Comments Brother (Age 45) [place] Daughter Alive 1970 healthy Father (Age 80) ? heart va lve problems, prostate ca, chf Mother (Age 81) lipids, di abetes, double bypass, [place]; CHF Sister 1 Alive thyroid Sister 2 [...] Description 06/20/2024 11:45 AM EDT Office Visit [facility] Hematology Oncology [address] [place] [phone] Kristi Contreras MD [address] [place] [address] Health Maintenance Due Date Last Done Comments [...] Relevant to Health Maintenance Results * (ABNORMAL) [place]-lambda free light chains, quantitative (03/27/2024 2:47 PM EST) [place] Free Light Chain 1.65 0.33 - 1.94 mg/dL 04/02/2024 7:11 AM EST [facility] Lambda Free Light Chain 0.97 0.57 - 2.63 mg/dL 04/02/2024 7:11 AM EST [facility] [place]/Lambda FLC Ratio 1.70(H) 0.26 - 1.65 04/02/2024 7:11 AM EST [facility] Comment: Test performed at [facility], [address], [place], [place] ??[address] ? [phone] Mary Frost MD, PhD - Manager Risk Blood Venous blood specimen / Unknown Venipuncture / Unknown 03/27/2024 2:47 PM EST 03/27/2024 4:39 PM EST us Kristi Contreras MD LAB BLOOD ORDERABLES Final R esult JOEY Mcd[address] [place] [address] * (ABNORMAL) CBC auto differential (03/27/2024 2:47 PM EST) [facility] Signature WBC 3.7(L) 4.8 - 10.8 K/mcL LAB HEMETOLOGY METHOD 03/27/2024 4:50 PM EST [facility] RBC 3.40(L) 3.80 - 4.80 M/mcL LAB HEMETOLOGY METHOD 03/27/2024 4:50 PM [facility] Hemoglobin 10.7(L) 11.5 - 16.0 g/dL LAB HEMETOLOGY METHOD 03/27/2024 4:50 PM [facility] Hematocrit 32.7(L) 35.0 - 47.0 % LAB HEMETOLOGY METHOD 03/27/2024 4:50 PM EST [facility] MCV 96.2 79.0 - 98.0 FL LAB HEMETOLOGY METHOD 03/27/2024 4:50 PM [facility] MCH 31.5 27.0 - 32.0 pcg LAB HEMETOLOGY METHOD 03/27/2024 4:50 PM [facility] MCHC 32.7 32.0 - 37.0 g/dL LAB HEMETOLOGY METHOD 03/27/2024 4:50 PM EST [facility] RDW 13.1 11.0 - 15.0 % LAB HEMETOLOGY METHOD 03/27/2024 4:50 PM [facility] Platelets 225 130 - 400 K/mcL LAB HEMETOLOGY METHOD 03/27/2024 4:50 PM [facility] MPV 9.9 7.0 - 11.0 FL LAB HEMETOLOGY METHOD 03/27/2024 4:50 PM [facility] NRBC 0.0 <1.0 % LAB HEMETOLOGY METHOD 03/27/2024 4:50 PM [facility] NRBC Absolute 0.00 <0.10 K/mcL LAB HEMETOLOGY METHOD 03/27/2024 4:50 PM [facility] Neutrophils Relative 42.4 % LAB HEMETOLOGY METHOD 03/27/2024 4:50 PM [facility] Lymphocytes Relative 36.3 % LAB HEMETOLOGY METHOD 03/27/2024 4:50 PM [facility] Monocytes Relative 13.2 % LAB HEMETOLOGY METHOD 03/27/2024 4:50 PM [facility] Eosinophils Relative 6.7 % LAB HEMETOLOGY METHOD 03/27/2024 4:50 PM [facility] Basophils Relative 1.1 % LAB HEMETOLOGY METHOD 03/27/2024 4:50 PM [facility] Immature Granulocytes Relative 0.3 % LAB HEMETOLOGY METHOD 03/27/2024 4:50 PM [facility] Neutrophils Absolute 1.58 1.50 - 7.00 K/mcL LAB HEMETOLOGY METHOD 03/27/2024 4:50 PM [facility] Lymphocytes Absolute 1.35 1.00 - 5.00 K/mcL LAB HEMETOLOGY METHOD 03/27/2024 4:50 PM [facility] Monocytes Absolute 0.49 0.20 - 1.00 K/mcL LAB HEMETOLOGY METHOD 03/27/2024 4:50 PM [facility] Eosinophils Absolute 0.25 0.00 - 0.50 K/mcL LAB HEMETOLOGY METHOD 03/27/2024 4:50 PM [facility] Basophils Absolute 0.04 0.00 - 0.20 K/mcL LAB HEMETOLOGY METHOD 03/27/2024 4:50 PM [facility] Immature Granulocytes Absolute 0.01 0.00 - 0.03 K/mcL LAB HEMETOLOGY METHOD 03/27/2024 4:50 PM EST [facility] Blood Venous blood specimen / Unknown Venipuncture / Unknown 03/27/2024 2:47 PM EST 03/27/2024 4:40 PM EST Kristi Contreras MD LAB BLOOD ORDERABLES Final R esult Performing Organization Address [facility]/ZIP Co de Phone Number [facility] [address] [place] [address], [place] [phone] * Erythropoietin (03/27/2024 2:47 PM EST) Erythropoietin 13.2 2.6 - 18.5 mIU/mL 04/01/2024 8:55 PM EST [facility] Comment: Test performed at [facility], [address] [place], [place] ??[address] ? [phone] Mary Frost MD, PhD - Manager Risk Blood Venous blood specimen / Unknown Venipuncture / Unknown 03/27/2024 2:47 PM EST 03/27/2024 4:39 PM EST Kristi Contreras MD LAB BLOOD ORDERABLES Final R esult Performing Organization Address [facility]/ZIP Co de Phone Number [facility] [address] [place] [address] * Reticulocyte count (03/27/2024 2:47 PM EST) Retic Ct Abs 0.050 0.030 - 0.090 M/mcL LAB HEMETOLOGY METHOD 03/27/2024 4:50 PM EST [facility] Retic Ct Pct 1.6 0.7 - 1.7 % LAB HEMETOLOGY METHOD 03/27/2024 4:50 PM EST [facility] Immature Retic Fract 13.6 2.3 - 15.9 % LAB HEMETOLOGY METHOD 03/27/2024 4:50 PM EST [facility] Reticulocyte Hemoglobin 34.6 >29.0 pcg LAB HEMETOLOGY METHOD 03/27/2024 4:50 PM EST [facility] Blood Venous blood specimen / Unknown Venipuncture / Unknown 03/27/2024 2:47 PM EST 03/27/2024 4:40 PM EST Kristi Contreras MD LAB BLOOD ORDERABLES Final R esult Performing Organization Address City/[facility]/ZIP Co de Phone Number [facility] [address] [place] [address], [place] [phone] * (ABNORMAL) Immunoglobulins IgG, IgA, IgM (03/27/2024 2:47 PM EST) Total IgG 1,580 549 - 1,584 mg/dL LAB CHEMISTRY METHOD 03/27/2024 5:13 PM EST [facility] IgA 38(L) 61 - 348 mg/dL LAB CHEMISTRY METHOD 03/27/2024 5:13 PM EST [facility] IgM 38 23 - 259 mg/dL LAB CHEMISTRY METHOD 03/27/2024 5:13 PM EST [facility] Blood Venous blood specimen / Unknown Venipuncture / Unknown 03/27/2024 2:47 PM EST 03/27/2024 4:39 PM EST Kristi Contreras MD LAB BLOOD ORDERABLES Final R esult [facility] [address] [place] [address], [place] [phone] * Lactate dehydrogenase (03/27/2024 2:47 PM EST) Pathologist [facility] LDH 177 120 - 246 unit/L LAB CHEMISTRY METHOD 03/27/2024 5:02 PM EST [facility] Blood Venous blood specimen / Unknown Venipuncture / Unknown 03/27/2024 2:47 PM EST 03/27/2024 4:39 PM EST Kristi Contreras MD LAB BLOOD ORDERABLES Final R esult Performing Organization Address City/[facility]/ZIP Co de Phone Number [facility] [address] [place] [address], [place] [phone] * (ABNORMAL) Folate (03/27/2024 2:47 PM EST) Folate >20.0(H) 2.8 - 17.0 ng/ml LAB CHEMISTRY METHOD 03/27/2024 5:13 PM EST [facility] Blood Venous blood specimen / Unknown Venipuncture / Unknown 03/27/2024 2:47 PM EST 03/27/2024 4:39 PM EST Kristi Contreras MD LAB BLOOD ORDERABLES Final R esult Performing Organization Address City/[facility]/ZIP Co de Phone Number [facility] [address] [place] [address], [place] [phone] * (ABNORMAL) Beta 2 microglobulin, serum (03/27/2024 2:47 PM EST) Beta-2 Microglobulin 2.2(H) 0.7 - 1.8 mg/L LAB CHEMISTRY METHOD 03/27/2024 5:13 PM EST [facility] Blood Venous blood specimen / Unknown Venipuncture / Unknown 03/27/2024 2:47 PM EST 03/27/2024 4:39 PM EST Kristi Contreras MD LAB BLOOD ORDERABLES Final R esult Performing Organization Address City/[facility]/ZIP Co de Phone Number [facility] [address] [place] [address], [place] [phone] * (ABNORMAL) Comprehensive metabolic panel (03/27/2024 2:47 PM EST) Sodium 131(L) 133 - 145 mmol/L LAB CHEMISTRY METHOD 03/27/2024 5:13 PM [facility] Potassium 4.5 3.5 - 5.5 mmol/L LAB CHEMISTRY METHOD 03/27/2024 5:13 PM [facility] Chloride 100 96 - 110 mmol/L LAB CHEMISTRY METHOD 03/27/2024 5:13 PM [facility] CO2 27 21 - 32 mmol/L LAB CHEMISTRY METHOD 03/27/2024 5:13 PM [facility] Anion Gap 4 3 - 11 LAB CHEMISTRY METHOD 03/27/2024 5:13 PM [facility] Glucose 93 70 - 100 mg/dL LAB CHEMISTRY METHOD 03/27/2024 5:13 PM [facility] BUN 14 5 - 25 mg/dL LAB CHEMISTRY METHOD 03/27/2024 5:13 PM [facility] Creatinine 0.75 0.50 - 1.10 mg/dL LAB CHEMISTRY METHOD 03/27/2024 5:13 PM [facility] eGFR 80 >=60 mL/min/1. 73m2 LAB CHEMISTRY METHOD 03/27/2024 5:13 PM [facility] Comment:Calculation based on the??Chronic Kidney Disease Epidemiology Collaboration (CKD-EPI) equation refit??without adjustment for race. BUN/Creatinine Ratio 18.7 LAB CHEMISTRY METHOD 03/27/2024 5:13 PM [facility] Calcium 9.7 8.5 - 10.5 mg/dL LAB CHEMISTRY METHOD 03/27/2024 5:13 PM [facility] AST (SGOT) 22 10 - 42 unit/L LAB CHEMISTRY METHOD 03/27/2024 5:13 PM [facility] ALT (SGPT) 22 10 - 60 unit/L LAB CHEMISTRY METHOD 03/27/2024 5:13 PM EST [facility] Alkaline Phosphatase 82 42 - 121 unit/L LAB CHEMISTRY METHOD 03/27/2024 5:13 PM EST [facility] Total Protein 7.1 6.0 - 8.0 g/dL LAB CHEMISTRY METHOD 03/27/2024 5:13 PM EST [facility] Albumin 3.7 3.2 - 5.0 g/dL LAB CHEMISTRY METHOD 03/27/2024 5:13 PM EST [facility] Total Bilirubin 0.4 0.0 - 1.4 mg/dL LAB CHEMISTRY METHOD 03/27/2024 5:13 PM EST [facility] Blood Venous blood specimen / Unknown Venipuncture / Unknown 03/27/2024 2:47 PM EST 03/27/2024 4:39 PM EST Kristi Contreras MD LAB BLOOD ORDERABLES Final R esult [facility] [address] [place] [address], * (ABNORMAL) Lipid panel (08/16/2021) LDL/HDL Ratio 3 0 - 4 Triglycerides 203(A) 0 - 150 mg/dL Cholesterol 175 0 - 200 mg/dL HDL 71 >=40 mg/dL LDL Cholesterol 64 0 - 100 mg/dL Blood Venous blood specimen / Unknown [facility] Provider LAB BLOOD ORDERABLES Genia l [...] 6.9%. IMPRESSION: Normal by WHO criteria. [facility] Department of Internal Medicine recommends using [...] alternative screening schedule based on tara Chirinos., [facility] March 17, 2011 for patients [...] 6.9%. IMPRESSION: Normal by WHO criteria. [facility] Department of Internal Medicine recommendsusing National [...] alternative screening schedule based on tara Chirinos., [facility] for patients with osteopenia [...] Insurance MEDICARE MEDICAID - [place] Care Teams Food Storeroom Clerk Relationship Specialty Start Date End Date Ayesha Marroquin PA [address] [place] [address] PCP - General 12/29/22
--- OUTSIDE RECORDS SUMMARY | 2024-06-19 16:13 | XMS_ITS | Encounter Summary ---
Author Organization [facility] Address [address] [place] [address] Care Team Providers Care Engineering Scientist Name Role Phone Maricarmen Prescott MD Primary Care Provider Unava Geoffrey Guardado MD Unavailable Beatriz Talbot ECHOCARDIOGRAPHER Unavailable Unavailab Beti Patrick MD Primary Care Provider [phone] Johan Griffin Primary Care Provider [phone] Nita Gutierrez ECHOCARDIOGRAPHER Unavailable [phone] Ayesha Marroquin PA-C Primary Care Provider Unavail able Encounter Details Date Type Department Care Team Description 08/09/2012 Controlled Substance Plan Medical Records [address] [place] [address] Abstract, Provider Social History Tobacco Use Types [...] on filedocumented in this encounter Care Teams Engineering Scientist Relationship Specialty Start Date End Date Maricarmen Prescott MD PCP - General 02/01/07 09/07/21 Beti Carrion MD [address] [place] [address] PCP - General Internal Medicine 10/04/21 11/20/22 Johan Griffin [address] [place] [address] PCP - General Internal Medicine 09/08/21 10/03/21 Ayesha Marroquin PA-C [address] [place] [address] PCP - General Internal Medicine 12/29/22 Geoffrey Lynn MD Specialist Cardiovascular Disease 10/20/20 Beatriz Talbot NP Specialist Cardiology 10/20/20 12/27/22 Nita Gutierrez NP [address] [place] [address] Cardiology 12/28/22 documented as of this encounter
--- OUTSIDE RECORDS SUMMARY | 2024-06-19 16:13 | XMS_ITS | Encounter Summary ---
Author Organization [facility] Address [address] [place] [address] Care Team Providers Care Bar Staff Name Role Phone Maricarmen Prescott MD Primary Care Provider Unava Geoffrey Guardado MD Unavailable Beatriz Talbot NP Unavailable Unavailab Beti Patrick MD Primary Care Provider [phone] Johan Griffin Primary Care Provider [phone] Nita Gutierrez NP Unavailable [phone] Ayesha Marroquin PA-C Primary Care Provider Unavail able Encounter Details Date Type Department Care Team Description 10/27/2020 [facility] Medical Records [address] [place] [address] Abstract, Provider Social History Tobacco Use Types [...] on filedocumented in this encounter Care Teams Bar Staff Relationship Specialty Start Date End Date Maricarmen Prescott MD PCP - General 02/01/07 09/07/21 Beti Carrion MD [address] [place] [address] PCP - General Internal Medicine 10/04/21 11/20/22 Johan Griffin [address] [place] [address] PCP - General Internal Medicine 09/08/21 10/03/21 Ayesha Marroquin PA-C [address] [place] [address] PCP - General Internal Medicine 12/29/22 Geoffrey Lynn MD Specialist Cardiovascular Disease 10/20/20 Beatriz Talbot NP Specialist Cardiology 10/20/20 12/27/22 Nita Gutierrez NP [address] [place] [address] Cardiology 12/28/22 documented as of this encounter
--- OUTSIDE RECORDS SUMMARY | 2024-06-19 16:13 | XMS_ITS | Encounter Summary ---
Author Organization [facility] Address [address] [place] [address] Care Team Providers Care Greeting Card Maker Name Role Phone Maricarmen Prescott MD Primary Care Provider Unava ilGeoffrey Hall MD Unavailable Beatriz Talbot NP Unavailable Unavailab Beti Patrick MD Primary Care Provider [phone] Johan Griffin Primary Care Provider [phone] Nita Gutierrez STORAGE BRINE WORKER Unavailable [phone] Ayesha Marroquin PA-C Primary Care Provider Unavail able Reason for Visit * Reason Onset Date Comments External Sleep Study Request 12/07/2017 [facility] e Sleep Study Encounter Details Date Type Department Care Team Description 12/07/2017 Telephone Pulmonology - [facility] [address] [facility] [address] [place] [address] Ervin Antonio MD [address] [facility] [address] [place] [address] External Sleep Study Request (Home Sleep Study) Social History Tobacco Use Types Packs/Day Years [...] encounter Miscellaneous Notes * Telephone Encounter - Jade Pittman - 12/07/2017 11:09 AM EDT Medicare/[employer] No auth required Order faxed to sleep medicine services. They will contact patient with appointment.Notification letter mailed. documented in this encounter Plan of Treatment Not on file documented as of this encounter Visit Diagnoses Not on filedocumented in this encounter Care Teams Greeting Card Maker Relationship Specialty Start Date End Date Maricarmen Prescott MD PCP - General 02/01/07 09/07/21 Beti Carrion MD [address] [place] [address] PCP - General Internal Medicine 10/04/21 11/20/22 Johan Griffin [address] [place] [address] PCP - General Internal Medicine 09/08/21 10/03/21 Ayesha Marroquin PA-C [address] [place] [address] PCP - General Internal Medicine 12/29/22 Geoffrey Lynn MD Specialist Cardiovascular Disease 10/20/20 Beatriz Talbot NP Specialist Cardiology 10/20/20 12/27/22 Nita Gutierrez NP [address] [place] [address] Cardiology 12/28/22 documented as of this encounter
--- OUTSIDE RECORDS SUMMARY | 2024-06-19 16:13 | XMS_ITS | Encounter Summary ---
Author Organization [facility] Address [address] [place] [address] Care Team Providers Care Credit Reporting Clerk Name Role Phone Geoffrey Lynn MD Unavailable Nita Gutierrez NP Unavailable [phone] Ayesha Marroquin PA-C Primary Care Provider Unavail able Reason for Visit * Reason Onset Date Comments TEST RESULTS 01/30/2023 Encounter Details Date Type Department Care Team Description 01/30/2023 Telephone Cardio PVCA Diag Testing [address] [facility] [address] [place] [address] Geoffrey Lynn MD [address] [place], [place] [id number] TEST RESULTS Social History Tobacco Use Types Packs/Day Years [...] encounter Miscellaneous Notes * Telephone Encounter - Nita Gutierrez NP - 02/03/2023 4:12 PM EST Spoke with the patient; I reviewed the results of her stress echocardiogram from 01/30/2023 showing evidence of stress-induced hypokinesis in the inferior wall suggestive of one-vessel coronary arterydisease. The patient reports that over the last year to year and a half she has noticed decreased activity tolerance as well as shortness of breath with exertion. She mentioned that her daughter told her that Dr. Lynn was unclear as to whether she was having a total knee replacement versus a more simple surgery; the patient clarifies today that she is simply having replacement of the liner nota total knee replacement. I discussed with the patient the potential for cardiac catheterization; however, after cardiac catheterization was completed if she did not fact need a stent she would have to be on dual antiplatelet therapy for at least 6 to 12 months before being able to have this elective surgery completed. She would like to to talk to Dr. Lynn further about this to see what his recommendations are. She has not yet started daily baby aspirin and I urged her to do so. I also advised her to seek emergency medical attention by calling 911 if she were to develop severe dyspnea, chest pain that did not resolve with rest, or if she were to faint. The surgeon's name is Dr Funez at [facility]. Dr. Lynn, would you please call the patient to discuss this further at your earliest convenience? Thank you! * Telephone Encounter - Cydney Cruz - 02/02/2023 2:24 PM EST Patient calling, she states when her daughter received the call, she was driving and didn't remember everything that Dr Lynn and her discussed. Patient is requesting a call for the results can be given to her and so that she is aware of what the next steps will be as far as her care. She has some questions she would like to ask. Please advise. * Telephone Encounter - Geoffrey Lynn MD - 01/31/2023 4:33 PM EST I saw the results of the stress echo and looked at the echo images myself. There does indeed appearto be exercise-induced inferior hypokinesis. It was close to the target heart rate and after 4 and half minutes of exercise. I tried to reach her and I did not leave a message. I also spoke to her daughter. I think the barbour here is what is the surgery like. They are going to get me the name of the millan betito. If this is percutaneous surgery I do not think I would do a cardiac cath before hand. They will get me the info and I will talk to the surgeon * Telephone Encounter - Candie Pena RN - 01/31/2023 3:32 PM EST Stress ECHO from [facility] is in EPIC * Telephone Encounter - Jordana Lee - 01/31/2023 3:19 PM EST Patient called, she had an Echocardiogram On 01/30/2023 at [facility] It was ordered by her primary care provider. She received a call from them stating the results looked concerning. She would like a call back to discuss whether or not she will need a follow up appointment for sooner then June 2023. Please advise. The ECHO was done at [facility] . Jordana * Telephone Encounter - Judy Eugene - 01/30/2023 3:56 PM EST Patient called, she had an Echocardiogram today at [facility]. It was ordered by her primary care provider. She received a call from them stating the results looked concerning. She wouldlike a call back to discuss whether or not she will need a follow up appointment for sooner then June 2023. Please advise. documented in this encounter Plan of Treatment Not on file documented as of this encounter Visit Diagnoses Not on filedocumented in this encounter Care Teams Credit Reporting Clerk Relationship Specialty Start Date End Date Ayesha Marroquin PA-C PCP - General Internal Medicine 12/29/22 Geoffrey Lynn MD Specialist Cardiovascular Disease 10/20/20 Nita Gutierrez NP Cardiology 12/28/22 documented as of this encounter
--- OUTSIDE RECORDS SUMMARY | 2024-06-19 16:13 | XMS_ITS | Encounter Summary ---
Author Organization [facility] Address [address] [place] [address] Care Team Providers Care Cook Railroad Name Role Phone Maricarmen Prescott MD Primary Care Provider Unava Geoffrey Guardado MD Unavailable Beatriz Talbot NP Unavailable Unavailab Beti Patrick MD Primary Care Provider [phone] Johan Griffin Primary Care Provider [phone] Nita Gutierrez NP Unavailable [phone] Ayesha Marroquin PA-C Primary Care Provider Unavail able Encounter Details Date Type Department Care Team Description 08/13/2018 [facility] Medical Records [address] [place] [address] Abstract, Provider Social History Tobacco Use Types [...] on filedocumented in this encounter Care Teams Cook Railroad Relationship Specialty Start Date End Date Maricarmen Prescott MD PCP - General 02/01/07 09/07/21 Beti Carrion MD [address] [place] [address] PCP - General Internal Medicine 10/04/21 11/20/22 Johan Griffin [address] [place] [address] PCP - General Internal Medicine 09/08/21 10/03/21 Ayesha Marroquin PA-C [address] [place] [address] PCP - General Internal Medicine 12/29/22 Geoffrey Lynn MD Specialist Cardiovascular Disease 10/20/20 Beatriz Talbot NP Specialist Cardiology 10/20/20 12/27/22 Nita Gutierrez NP [address] [place] [address] Cardiology 12/28/22 documented as of this encounter
--- OUTSIDE RECORDS SUMMARY | 2024-06-19 16:13 | XMS_ITS | Encounter Summary ---
Author Organization [facility] Address [address] [place] [address] Care Team Providers Care Cook Chill Technician Name Role Phone Maricarmen Prescott MD Primary Care Provider Unava Geoffrey Guardado MD Unavailable Beatriz Talbot NP Unavailable Unavailab Beti Patrick MD Primary Care Provider [phone] Johan Griffin Primary Care Provider [phone] Nita Gutierrez INTERIOR WALL ASSEMBLER Unavailable [phone] Ayesha Marroquin PA-C Primary Care Provider Unavail able Encounter Details Date Type Department Care Team Description 12/05/2018 Orders Only Medicine/Pediatrics - [address] [address] Maricarmen Prescott MD Preoperative examination; Screening for deficiency anemia; buttermaker continuous churn current use of anticoagulant therapy Social History [...] EDT [facility] Comment: If patient is -[place] Citizen, multiply result by 1.21 Chronic Kidney Disease: [...] Screening for other and unspecified deficiency anemia buttermaker continuous churn current use of anticoagulant therapy documented in this encounter Care Teams Cook Chill Technician Relationship Specialty Start Date End Date Maricarmen Prescott MD PCP - General 02/01/07 09/07/21 Beti Carrion MD [address] [place] [address] PCP - General Internal Medicine 10/04/21 11/20/22 Johan Griffin [address] [place] [address] PCP - General Internal Medicine 09/08/21 10/03/21 Ayesha Marroquin PA-C [address] [place] [address] PCP - General Internal Medicine 12/29/22 Geoffrey Lynn MD Specialist Cardiovascular Disease 10/20/20 Beatriz Talbot NP Specialist Cardiology 10/20/20 12/27/22 Nita Gutierrez NP [address] [place] [address] Cardiology 12/28/22 documented as of this encounter
--- OUTSIDE RECORDS SUMMARY | 2024-06-19 16:13 | XMS_ITS | Encounter Summary ---
Author Organization [facility] Address [address] [place] [address] Care Team Providers Care Teacher Home Therapy Name Role Phone Maricarmen Prescott MD Primary Care Provider Unava ilGeoffrey Hall MD Unavailable Beatriz Talbot NP Unavailable Unavailab Beti Patrick MD Primary Care Provider [phone] Johan Griffin Primary Care Provider [phone] Nita Gutierrez NP Unavailable [phone] Ayesha Marroquin PA-C Primary Care Provider Unavail able Encounter Details Date Type Department Care Team Description 02/07/2015 [facility] Medical Records [address] [place] [address] Stevan Love MD Social History Tobacco Use [...] on filedocumented in this encounter Care Teams Teacher Home Therapy Relationship Specialty Start Date End Date Maricarmen Prescott MD PCP - General 02/01/07 09/07/21 Beti Carrion MD [address] [place] [address] PCP - General Internal Medicine 10/04/21 11/20/22 Johan Griffin [address] [place] [address] PCP - General Internal Medicine 09/08/21 10/03/21 Ayesha Marroquin PA-C [address] [place] [address] PCP - General Internal Medicine 12/29/22 Geoffrey Lynn MD Specialist Cardiovascular Disease 10/20/20 Beatriz Talbot NP Specialist Cardiology 10/20/20 12/27/22 Nita Gutierrez NP [address] [place] [address] Cardiology 12/28/22 documented as of this encounter
--- OUTSIDE RECORDS SUMMARY | 2024-06-19 16:13 | XMS_ITS | Encounter Summary ---
Author Organization [facility] Address [address] [place] [address] Care Team Providers Care Cloth Shrinking Machine Operator Name Role Phone Maricarmen Prescott MD Primary Care Provider Unava Geoffrey Guardado MD Unavailable Beatriz Talbot NP Unavailable Unavailab Beti Patrick MD Primary Care Provider [phone] Johan Griffin Primary Care Provider [phone] Nita Gutierrez NP Unavailable [phone] Ayesha Marroquin PA-C Primary Care Provider Unavail able Encounter Details Date Type Department Care Team Description 01/30/2018 [facility] Medical Records [address] [place] [address] Pau'Sarah Gonzalez, MEEK Social History Tobacco Use [...] on filedocumented in this encounter Care Teams Cloth Shrinking Machine Operator Relationship Specialty Start Date End Date Maricarmen Prescott MD PCP - General 02/01/07 09/07/21 Beti Carrion MD 4 [place] [address] PCP - General Internal Medicine 10/04/21 11/20/22 Johan Griffin 4 [place], [place] [phone] PCP - General Internal Medicine 09/08/21 10/03/21 Ayesha Marroquin PA-C 4 [place] [address] PCP - General Internal Medicine 12/29/22 Geoffrey Lynn MD Specialist Cardiovascular Disease 10/20/20 Beatriz Talbot NP Specialist Cardiology 10/20/20 12/27/22 Nita Gutierrez NP 4 [place] [address] Cardiology 12/28/22 documented as of this encounter
--- OUTSIDE RECORDS SUMMARY | 2024-06-19 16:13 | XMS_ITS | Encounter Summary ---
Author Organization [facility] Address [address] [place] [address] Care Team Providers Care Oriental Medicine Practitioner Name Role Phone Maricarmen Prescott MD Primary Care Provider Unava ilGeoffrey Hall MD Unavailable Beatriz Talobt NP Unavailable Unavailab Beti Patrick MD Primary Care Provider [phone] Johan Griffin Primary Care Provider [phone] Nita Gutierrez NP Unavailable [phone] Ayesha Marroquin PA-C Primary Care Provider Unavail able Encounter Details Date Type Department Care Team Description 06/11/2013 Wet Pan Operator Report Medical Records [address] [place] [address] Shraddha Naidu MD [address] [place] [address] [address] [place] [address] Social History Tobacco Use Types Packs/Day Years [...] on filedocumented in this encounter Care Teams Oriental Medicine Practitioner Relationship Specialty Start Date End Date Maricarmen Prescott MD PCP - General 02/01/07 09/07/21 Beti Carrion MD [address] [place] [address] PCP - General Internal Medicine 10/04/21 11/20/22 Johan Griffin [address] [place] [address] PCP - General Internal Medicine 09/08/21 10/03/21 Ayesha Marroquin PA-C [address] [place] [address] PCP - General Internal Medicine 12/29/22 Geoffrey Lynn MD Specialist Cardiovascular Disease 10/20/20 Beatriz Talbot NP Specialist Cardiology 10/20/20 12/27/22 Nita Gutierrez NP [address] [place] [address] Cardiology 12/28/22 documented as of this encounter
--- OUTSIDE RECORDS SUMMARY | 2024-06-19 16:13 | XMS_ITS | Encounter Summary ---
Author Organization [facility] Address [address] [place] [address] Care Team Providers Care Food Stand Manager Name Role Phone Maricarmen Prescott MD Primary Care Provider Unava Geoffrey Guardado MD Unavailable Beatriz Talbot GOLF SUPERINTENDENT Unavailable Unavailab Beti Patrick MD Primary Care Provider [phone] Johan Griffin Primary Care Provider [phone] Nita Gutierrez GOLF SUPERINTENDENT Unavailable [phone] Ayesha Marroquin PA-C Primary Care Provider Unavail able Encounter Details Date Type Department Care Team Description 02/11/2015 Medical Center Representative Report Medical Records [address] [place] [address] Connor Yang MD Social History Tobacco Use Types Packs/Day [...] filedocumented in this encounter Care Teams Food Stand Manager Relationship Specialty Start Date End Date Maricarmen Prescott MD PCP - General 02/01/07 09/07/21 Beti Carrion MD [address] [place] [address] PCP - General Internal Medicine 10/04/21 11/20/22 Johan Griffin [address] [place] [address] PCP - General Internal Medicine 09/08/21 10/03/21 Ayesha Marroquin PA-C [address] [place] [address] PCP - General Internal Medicine 12/29/22 Geoffrey Lynn MD Specialist Cardiovascular Disease 10/20/20 Beatriz Talbot NP Specialist Cardiology 10/20/20 12/27/22 Nita Gutierrez NP [address] [place] [address] Cardiology 12/28/22 documented as of this encounter
--- OUTSIDE RECORDS SUMMARY | 2024-06-19 16:13 | XMS_ITS | Encounter Summary ---
Author Organization [facility] Address [address] [place] [address] Care Team Providers Care Electrician Apprentice Name Role Phone Maricarmen Prescott MD Primary Care Provider Unava Geoffrey Guardado MD Unavailable Beatriz Talbot NP Unavailable Unavailab Beti Patrick MD Primary Care Provider [phone] Johan Griffin Primary Care Provider [phone] Nita Gutierrez NP Unavailable [phone] Ayesha Marroquin PA-C Primary Care Provider Unavail able Encounter Details Date Type Department Care Team Description 12/13/2015 Hospital Medical Records [address] [place] [address] Abstract, Provider Social History Tobacco Use Types [...] on filedocumented in this encounter Care Teams Electrician Apprentice Relationship Specialty Start Date End Date Maricarmen Prescott MD PCP - General 02/01/07 09/07/21 Beti Carrion MD [address] [place] [address] PCP - General Internal Medicine 10/04/21 11/20/22 Johan Griffin [address] [place] [address] PCP - General Internal Medicine 09/08/21 10/03/21 Ayesha Marroquin PA-C [address] [place] [address] PCP - General Internal Medicine 12/29/22 Geoffrey Lynn MD Specialist Cardiovascular Disease 10/20/20 Beatriz Talbot NP Specialist Cardiology 10/20/20 12/27/22 Nita Gutierrez NP 4 [place] [address] Cardiology 12/28/22 documented as of this encounter
--- OUTSIDE RECORDS SUMMARY | 2024-06-19 16:13 | XMS_ITS | Encounter Summary ---
Author Organization [facility] Address [address] [place] [address] Care Team Providers Care Shear Helper Name Role Phone Maricarmen Prescott MD Primary Care Provider Unava Geoffrey Guardado MD Unavailable Beatriz Talbot PUG MACHINE OPERATOR Unavailable Unavailab Beti Patrick MD Primary Care Provider [phone] Johan Griffin Primary Care Provider [phone] Nita Gutierrez PUG MACHINE OPERATOR Unavailable [phone] Ayesha Marroquin PA-C Primary Care Provider Unavail able Encounter Details Date Type Department Care Team Description 04/09/2010 Stone Cleaner Report Medical Records [address] [place] [address] Hever Foster MD Social History Tobacco Use [...] on filedocumented in this encounter Care Teams Shear Helper Relationship Specialty Start Date End Date Maricarmen Prescott MD PCP - General 02/01/07 09/07/21 Beti Carrion MD [address] [place] [address] PCP - General Internal Medicine 10/04/21 11/20/22 Johan Griffin [address] [place] [address] PCP - General Internal Medicine 09/08/21 10/03/21 Ayesha Marroquin PA-C [address] [place] [address] PCP - General Internal Medicine 12/29/22 Geoffrey Lynn MD Specialist Cardiovascular Disease 10/20/20 Beatriz Talbot NP Specialist Cardiology 10/20/20 12/27/22 Nita Gutierrez NP [address] [place] [address] Cardiology 12/28/22 documented as of this encounter
--- OUTSIDE RECORDS SUMMARY | 2024-06-19 16:13 | XMS_ITS | Encounter Summary ---
Author Organization [facility] Address [address] [place] [address] Care Team Providers Care Casing Puller Name Role Phone Maricarmen Prescott MD Primary Care Provider Unava ilGeoffrey Hall MD Unavailable Beatriz Talbot NP Unavailable Unavailab Beti Patrick MD Primary Care Provider [phone] Johan Griffin Primary Care Provider [phone] Nita Gutierrez NP Unavailable [phone] Ayesha Marroquin PA-C Primary Care Provider Unavail able Encounter Details Date Type Department Care Team Description 08/24/2020 Telephone General Surgery - [place] [facility] [address] [place] [address] Enrique Billy DPM [address] [facility] [address] [place], [place] [id number] Social History Tobacco Use Types Packs/Day Years [...] on filedocumented in this encounter Care Teams Casing Puller Relationship Specialty Start Date End Date Maricarmen Prescott MD PCP - General 02/01/07 09/07/21 Beti Carrion MD [address] [place] [address] PCP - General Internal Medicine 10/04/21 11/20/22 Johan Griffin [address] [place] [address] PCP - General Internal Medicine 09/08/21 10/03/21 Ayesha Marroquin PA-C [address] [place] [address] PCP - General Internal Medicine 12/29/22 Geoffrey Lynn MD Specialist Cardiovascular Disease 10/20/20 Beatriz Talbot NP Specialist Cardiology 10/20/20 12/27/22 Nita Gutierrez NP [address] [place] [address] Cardiology 12/28/22 documented as of this encounter
--- OUTSIDE RECORDS SUMMARY | 2024-06-19 16:13 | XMS_ITS | Encounter Summary ---
Author Organization [facility] Address [address] [place] [address] Care Team Providers Care Project Asst Name Role Phone Geoffrey Lynn MD Unavailable Nita Gutierrez NP Unavailable [phone] Ayesha Marroquin PA-C Primary Care Provider Unavail able Encounter Details Date Type Department Care Team Description 01/31/2023 Orders Only Cardio PVC POC [address] [facility] [address] [place] [address] Default, Provider Social History Tobacco Use Types [...] Date/Time Associated Diagnosis Comments OUTSIDE ECHO Routine 01/30/2023 documented in this encounter Results * OUTSIDE ECHO (01/30/2023) Provider Default CARDIOLOGY documented in this encounter Visit Diagnoses Not on filedocumented in this encounter Care Teams Project Asst Relationship Specialty Start Date End Date Ayesha Marroquin PA-C PCP - General Internal Medicine 11/2/23 Geoffrey Lynn MD Specialist Cardiovascular Disease 10/20/20 Nita Gutierrez NP Cardiology 12/28/22 documented as of this encounter
--- OUTSIDE RECORDS SUMMARY | 2024-06-19 16:13 | XMS_ITS | Encounter Summary ---
Author Organization [facility] Address [address] [place] [address] Care Team Providers Care Pump Press Operator Name Role Phone Maricarmen Prescott MD Primary Care Provider Unava Geoffrey Guardado MD Unavailable Beatriz Talbot NP Unavailable Unavailab Beti Patrick MD Primary Care Provider [phone] Johan Griffin Primary Care Provider [phone] Nita Gutierrez NP Unavailable [phone] Ayesha Marroquin PA-C Primary Care Provider Unavail able Encounter Details Date Type Department Care Team Description 02/09/2016 Business Doc Medical Records [address] [place] [address] Abstract, Provider Social History Tobacco Use Types [...] on filedocumented in this encounter Care Teams Pump Press Operator Relationship Specialty Start Date End Date Maricarmen Prescott MD PCP - General 02/01/07 09/07/21 Beti Carrion MD [address] [place] [address] PCP - General Internal Medicine 10/04/21 11/20/22 Johan Griffin [address] [place] [address] PCP - General Internal Medicine 09/08/21 10/03/21 Ayesha Marroquin PA-C 4 [place] [address] PCP - General Internal Medicine 12/29/22 Geoffrey Lynn MD Specialist Cardiovascular Disease 10/20/20 Beatriz Talbot NP Specialist Cardiology 10/20/20 12/27/22 Nita Gutierrez NP [address] [place] [address] Cardiology 12/28/22 documented as of this encounter
--- OUTSIDE RECORDS SUMMARY | 2024-06-19 16:13 | XMS_ITS | Encounter Summary ---
Author Organization [facility] Address [address] [place] [address] Care Team Providers Care Copier And Printer Field Technician Name Role Phone Maricarmen Prescott MD Primary Care Provider Unava ilGeoffrey Hall MD Unavailable Beatriz Talbot NP Unavailable Unavailab Beti Patrick MD Primary Care Provider [phone] oJhan Griffin Primary Care Provider [phone] Nita Gutierrez SATURATION DIVER Unavailable [phone] Ayesha Marroquin PA-C Primary Care Provider Unavail able Reason for Visit * Reason Comments E-prescribe Rx Request Encounter Details Date Type Department Care Team Description 11/03/2020 Refill Gastroenterology - [address] [place] [phone] Maricarmen Prescott MD E-prescribe Rx Request Social [...] / Plan: [place] / Product Type: MEDICARE [id number] documented in this encounter Plan of Treatment Not on file documented as of this encounter Visit Diagnoses Diagnosis Gastroparesis documented in this encounter Care Teams Copier And Printer Field Technician Relationship Specialty Start Date End Date Maricarmen Prescott MD PCP - General 02/01/07 09/07/21 Beti Carrion MD [address] [place] [address] PCP - General Internal Medicine 10/04/21 11/20/22 Johan Griffin [address] [place] [address] PCP - General Internal Medicine 09/08/21 10/03/21 Ayesha Marroquin PA-C [address] [place] [address] PCP - General Internal Medicine 12/29/22 Geoffrey Lynn MD Specialist Cardiovascular Disease 10/20/20 Beatriz Talbot NP Specialist Cardiology 10/20/20 12/27/22 Nita Gutierrez NP [address] [place] [address] Cardiology 12/28/22 documented as of this encounter
--- OUTSIDE RECORDS SUMMARY | 2024-06-19 16:13 | XMS_ITS | Encounter Summary ---
Author Organization [facility] Address [address] [place] [address] Care Team Providers Care Cap Parts Cutter Name Role Phone Maricarmen Prescott MD Primary Care Provider Unava Geoffrey Guardado MD Unavailable Beatriz Talbot NP Unavailable Unavailab Beti Patrick MD Primary Care Provider [phone] Johan Griffin Primary Care Provider [phone] Nita Gutierrez NP Unavailable [phone] Ayesha Marroquin PA-C Primary Care Provider Unavail able Encounter Details Date Type Department Care Team Description 11/05/2020 Operating Room Aide Report Medical Records [address] [place] [address] Kristi Contreras MD Social History Tobacco Use [...] on filedocumented in this encounter Care Teams Cap Parts Cutter Relationship Specialty Start Date End Date Maricarmen Prescott MD PCP - General 02/01/07 09/07/21 Beti Carrion MD [address] [place] [address] PCP - General Internal Medicine 10/04/21 11/20/22 Johan Griffin [address] [place] [address] PCP - General Internal Medicine 09/08/21 10/03/21 Ayesha Marroquin PA-C [address] [place] [address] PCP - General Internal Medicine 12/29/22 Geoffrey Lynn MD Specialist Cardiovascular Disease 10/20/20 Beatriz Talbot NP Specialist Cardiology 10/20/20 12/27/22 Nita Gutierrez NP [address] [place] [address] Cardiology 12/28/22 documented as of this encounter
--- OUTSIDE RECORDS SUMMARY | 2024-06-19 16:13 | XMS_ITS | Encounter Summary ---
Author Organization [facility] Address [address] [place] [address] Care Team Providers Care Other Sports Official Name Role Phone Maricarmen Prescott MD Primary Care Provider Unava Geoffrey Guardado MD Unavailable Beatriz Talbot DAY CARE AIDE Unavailable Unavailab Beti Patrick MD Primary Care Provider [phone] Johan Griffin Primary Care Provider [phone] Nita Gutierrez DAY CARE AIDE Unavailable [phone] Ayesha Marroquin PA-C Primary Care Provider Unavail able Encounter Details Date Type Department Care Team Description 12/04/2009 Court Collections Officer Report Medical Records [address] [place] [address] Genny Grossman MD Social History Tobacco Use [...] on filedocumented in this encounter Care Teams Other Sports Official Relationship Specialty Start Date End Date Maricarmen Prescott MD PCP - General 02/01/07 09/07/21 Beti Carrion MD [address] [place] [address] PCP - General Internal Medicine 10/04/21 11/20/22 Johan Griffin [address] [place] [address] PCP - General Internal Medicine 09/08/21 10/03/21 Ayesha Marroquin PA-C [address] [place] [address] PCP - General Internal Medicine 12/29/22 Geoffrey Lynn MD Specialist Cardiovascular Disease 10/20/20 Beatriz Talbot NP Specialist Cardiology 10/20/20 12/27/22 Nita Gutierrez NP [address] [place] [address] Cardiology 12/28/22 documented as of this encounter
--- OUTSIDE RECORDS SUMMARY | 2024-06-19 16:13 | XMS_ITS | Encounter Summary ---
Author Organization [facility] Address [address] [place] [address] Care Team Providers Care Tap And Die Maker Technician Name Role Phone Maricarmen Prescott MD Primary Care Provider Unava Geoffrey Guardado MD Unavailable Beatriz Talbot NP Unavailable Unavailab Beti Patrick MD Primary Care Provider [phone] Johan Griffin Primary Care Provider [phone] Nita Gutierrez POSTAL CLERK Unavailable [phone] Ayesha Marroquin PA-C Primary Care Provider Unavail able Encounter Details Date Type Department Care Team Description 11/15/2017 Snow Shoveler Report Medical Records [address] [place] [address] Alissa Beltran Social History Tobacco Use Types [...] on filedocumented in this encounter Care Teams Tap And Die Maker Technician Relationship Specialty Start Date End Date Maricarmen Prescott MD PCP - General 12/6/07 7/12/22 Beti Carrion MD [address] [place] [address] PCP - General Internal Medicine 10/04/21 11/20/22 Johan Griffin [address] [place], [place] [phone] PCP - General Internal Medicine 09/08/21 10/03/21 Ayesha Marroquin PA-C [address] [place] [address] PCP - General Internal Medicine 12/29/22 Geoffrey Lynn MD Specialist Cardiovascular Disease 10/20/20 Beatriz Talbot NP Specialist Cardiology 10/20/20 12/27/22 Nita Gutierrez NP [address] [place] [address] Cardiology 12/28/22 documented as of this encounter
--- OUTSIDE RECORDS SUMMARY | 2024-06-19 16:13 | XMS_ITS | Encounter Summary ---
Author Organization [facility] Address [address] [place] [address] Care Team Providers Care Cutter Operator Asbestos Shingle Name Role Phone Maricarmen Prescott MD Primary Care Provider Unava Geoffrey Guardado MD Unavailable Beatriz Talbot CUSTOMER ENGINEER Unavailable Unavailab Beti Patrick MD Primary Care Provider [phone] Johan Griffin Primary Care Provider [phone] Nita Gutierrez CUSTOMER ENGINEER Unavailable [phone] Ayesha Marroquin PA-C Primary Care Provider Unavail able Encounter Details Date Type Department Care Team Description 09/08/2009 District Sales Representative Report Medical Records [address] [place] [address] Genny Grossman MD Social History Tobacco Use [...] on filedocumented in this encounter Care Teams Cutter Operator Asbestos Shingle Relationship Specialty Start Date End Date Maricarmen Prescott MD PCP - General 02/01/07 09/07/21 Beti Carrion MD [address] [place] [address] PCP - General Internal Medicine 10/04/21 11/20/22 Johan Griffin [address] [place] [address] PCP - General Internal Medicine 09/08/21 10/03/21 yAesha Marroquin PA-C [address] [place] [address] PCP - General Internal Medicine 12/29/22 Geoffrey Lynn MD Specialist Cardiovascular Disease 10/20/20 Beatriz Talbot NP Specialist Cardiology 10/20/20 12/27/22 Nita Gutierrez NP [address] [place] [address] Cardiology 12/28/22 documented as of this encounter
--- OUTSIDE RECORDS SUMMARY | 2024-06-19 16:13 | XMS_ITS | Encounter Summary ---
Author Organization [facility] Address [address] [place] [address] Care Team Providers Care Nuclear Officer Name Role Phone Maricarmen Prescott MD Primary Care Provider Unava Geoffrey Guardado MD Unavailable Beatriz Talbot NP Unavailable Unavailab Beti Patrick MD Primary Care Provider [phone] Johan Griffin Primary Care Provider [phone] Nita Gutierrez NP Unavailable [phone] Ayesha Marroquin PA-C Primary Care Provider Unavail able Encounter Details Date Type Department Care Team Description 11/19/2020 Building Services Coordinator Report Medical Records [address] [place] [address] Kristi Contreras MD Social History Tobacco Use [...] on filedocumented in this encounter Care Teams Nuclear Officer Relationship Specialty Start Date End Date Maricarmen Prescott MD PCP - General 02/01/07 09/07/21 Beti Carrion MD [address] [place] [address] PCP - General Internal Medicine 10/04/21 11/20/22 Johan Griffin [address] [place] [address] PCP - General Internal Medicine 09/08/21 10/03/21 Ayesha Marroquin PA-C [address] [place] [address] PCP - General Internal Medicine 12/29/22 Geoffrey Lynn MD Specialist Cardiovascular Disease 10/20/20 Beatriz Talbot NP Specialist Cardiology 10/20/20 12/27/22 Nita Gutierrez NP [address] [place] [address] Cardiology 12/28/22 documented as of this encounter
--- OUTSIDE RECORDS SUMMARY | 2024-06-19 16:13 | XMS_ITS | Encounter Summary ---
Author Organization [facility] Address [address] [place] [address] Care Team Providers Care Manager Fixed Income Name Role Phone Maricarmen Prescott MD Primary Care Provider Unava ilGeoffrey Hall MD Unavailable Beatriz Talbot NP Unavailable Unavailab Beti Patrick MD Primary Care Provider [phone] Johan Griffin Primary Care Provider [phone] Nita Gutierrez TOMATO PULPER OPERATOR Unavailable [phone] Ayesha Marroquin PA-C Primary Care Provider Unavail able Reason for Visit * Reason Onset Date Comments refill request 08/20/2020 Encounter Details Date Type Department Care Team Description 08/20/2020 Refill Medicine/Pediatrics - [address] [address] Maricarmen Prescott MD refill request Social History [...] have Coronavirus / COVID-19? No / Unsure 08/14/2020 11:07 AM EDT documented as of this encounter Miscellaneous Notes * Telephone Encounter - Reese Michel M.A. - 08/20/2020 1:02 PM EDT Faxed to pharmacy * Telephone Encounter - Lala Rosa M.A. - 08/20/2020 11:43 AM EDT Last office visit: 08/14/2020 Next office visit: none Lab Results Component Value Date NA 134 06/19/2020 K 4.0 06/19/2020 CO2 26 06/19/2020 CL 102 06/19/2020 BUN 13 06/19/2020 CREAT 0.82 06/19/2020 GLU 89 06/19/2020 CA 8.9 06/19/2020 GFR > 60 06/19/2020 * Telephone Encounter - Iliana Gil - 08/20/2020 11:37 AM EDT Patient would like script to be: E-PRESCRIBED/FAXED TO PHARMACY WHEN WAS THE PATIENT'S LAST APPOINTMENT IN ADULT MEDICINE? 08/14/20 WHEN WAS THE LAST TIME THE PATIENT SAW THEIR PCP? Same as above Does patient have an upcoming appointment? NO (THE MEDICATION REQUESTED IS ON THE MED [...] / Plan: [place] / Product Type: MEDICARE [id number] documented in this encounter Plan of Treatment Not on file documented as of this encounter Visit Diagnoses Not on filedocumented in this encounter Care Teams Manager Fixed Income Relationship Specialty Start Date End Date Maricarmen Prescott MD PCP - General 02/01/07 09/07/21 Beti Carrion MD [address] [place] [address] PCP - General Internal Medicine 10/04/21 11/20/22 Johan Griffin [address] [place] [address] PCP - General Internal Medicine 09/08/21 10/03/21 Ayesha Marroquin PA-C [address] [place] [address] PCP - General Internal Medicine 12/29/22 Geoffrey Lynn MD Specialist Cardiovascular Disease 10/20/20 Beatriz Talbot NP Specialist Cardiology 10/20/20 12/27/22 Nita Gutierrez NP [address] [place] [address] Cardiology 12/28/22 documented as of this encounter
--- OUTSIDE RECORDS SUMMARY | 2024-06-19 16:13 | XMS_ITS | Encounter Summary ---
Author Organization [facility] Address [address] [place] [address] Care Team Providers Care Steel Post Installer Supervisor Name Role Phone Maricarmen Prescott MD Primary Care Provider Unava Geoffrey Guardado MD Unavailable Beatriz Talbot LEATHER PIECE INSPECTOR Unavailable Unavailab Beti Patrick MD Primary Care Provider [phone] Johan Griffin Primary Care Provider [phone] Nita Gutierrez LEATHER PIECE INSPECTOR Unavailable [phone] Ayesha Marroquin PA-C Primary Care Provider Unavail able Encounter Details Date Type Department Care Team Description 07/29/2015 Head Buyer Tobacco Report Medical Records [address] [place] [address] Connor Yang MD Social History Tobacco Use [...] on filedocumented in this encounter Care Teams Steel Post Installer Supervisor Relationship Specialty Start Date End Date Maricarmen Prescott MD PCP - General 02/01/07 09/07/21 Beti Carrion MD [address] [place] [address] PCP - General Internal Medicine 10/04/21 11/20/22 oJhan Griffin [address] [place] [address] PCP - General Internal Medicine 09/08/21 10/03/21 Ayesha Marroquin PA-C [address] [place] [address] PCP - General Internal Medicine 12/29/22 Geoffrey Lynn MD Specialist Cardiovascular Disease 10/20/20 Beatriz Talbot NP Specialist Cardiology 10/20/20 12/27/22 Nita Gutierrez NP [address] [place] [address] Cardiology 12/28/22 documented as of this encounter
--- OUTSIDE RECORDS SUMMARY | 2024-06-19 16:13 | XMS_ITS | Encounter Summary ---
Author Organization [facility] Address [address] [place] [address] Care Team Providers Care Branch Chief Name Role Phone Maricarmen Prescott MD Primary Care Provider Unava Geoffrey Guardado MD Unavailable Beatriz Talbot MANAGEMENT EXPERT Unavailable Unavailab Beti Patrick MD Primary Care Provider [phone] Johan Griffin Primary Care Provider [phone] Nita Gutierrez MANAGEMENT EXPERT Unavailable [phone] Ayesha Marroquin PA-C Primary Care Provider Unavail able Encounter Details Date Type Department Care Team Description 01/09/2015 Wellness Visit Medical Records [address] [place] [address] Maricarmen Prescott MD Social History Tobacco Use [...] on filedocumented in this encounter Care Teams Branch Chief Relationship Specialty Start Date End Date Maricarmen Prescott MD PCP - General 02/01/07 09/07/21 Beti Carrion MD [address] [place] [address] PCP - General Internal Medicine 10/04/21 11/20/22 Johan Griffin [address] [place] [address] PCP - General Internal Medicine 09/08/21 10/03/21 Ayesha Marroquin PA-C [address] [place] [address] PCP - General Internal Medicine 12/29/22 Geoffrey Lynn MD Specialist Cardiovascular Disease 10/20/20 Beatriz Talbot NP Specialist Cardiology 10/20/20 12/27/22 Nita Gutierrez NP [address] [place] [address] Cardiology 12/28/22 documented as of this encounter
--- OUTSIDE RECORDS SUMMARY | 2024-06-19 16:13 | XMS_ITS | Encounter Summary ---
Author Organization [facility] Address [address] [place] [address] Care Team Providers Care Statuary Painter Name Role Phone Maricarmen Prescott MD Primary Care Provider Unava Geoffrey Guardado MD Unavailable Beatriz Talbot ASSOCIATE RELATIONS SPECIALIST Unavailable Unavailab Beti Patrick MD Primary Care Provider [phone] Johan Griffin Primary Care Provider [phone] Nita Gutierrez ASSOCIATE RELATIONS SPECIALIST Unavailable [phone] Ayesha Marroquin PA-C Primary Care Provider Unavail able Encounter Details Date Type Department Care Team Description 04/29/2010 Pig Sticker Report Medical Records [address] [place] [address] Genny Grossman MD Social History Tobacco Use [...] on filedocumented in this encounter Care Teams Statuary Painter Relationship Specialty Start Date End Date Maricarmen Prescott MD PCP - General 02/01/07 09/07/21 Beti Carrion MD [address] [place] [address] PCP - General Internal Medicine 10/04/21 11/20/22 Johan Griffin [address] [place] [address] PCP - General Internal Medicine 09/08/21 10/03/21 Ayesha Marroquin PA-C [address] [place] [address] PCP - General Internal Medicine 12/29/22 Geoffrey Lynn MD Specialist Cardiovascular Disease 10/20/20 Beatriz Talbot NP Specialist Cardiology 10/20/20 12/27/22 Nita Gutierrez NP [address] [place] [address] Cardiology 12/28/22 documented as of this encounter
--- OUTSIDE RECORDS SUMMARY | 2024-06-19 16:13 | XMS_ITS | Clinical Summary ---
Author Organization [facility] Address [address] [place] [address] Care Team Providers Care Parking Enforcement Manager Name Role Phone Geoffrey Lynn MD Unavailable Nita Gutierrez NP Unavailable [phone] Ayesha Marroquin PA-C Primary Care Provider Unavail [...] catheterization 10/30 Overview: Done on 10/11/[address] [facility] w KM indications:Abnormal Stress Treadmill Study COPD [...] Vitamin D deficiency 07/19/2016 Diverticulosis 11/23/2015 Overview: ZEUS Solis Hiatal hernia 09/17/2015 Esophageal spasm 09/17/2015 [...] Relation Name Status Comments Brother (Age 45) [place] Daughter Alive 1970 healthy Father (Age 80) ? heart va lve problems, prostate ca, chf Mother (Age 81) lipids, di abetes, double bypass, [place]; CHF Sister 1 Alive thyroid Sister 2 [...] VACCINE Completed 12/23/2015, 11/27/19 11 Care Teams Parking Enforcement Manager Relationship Specialty Start Date End Date Ayesha Marroquin PA-C PCP - General Internal Medicine 12/29/22 Geoffrey Lynn MD Specialist Cardiovascular Disease 10/20/20 Nita Gutierrez NP Cardiology 12/28/22
--- OUTSIDE RECORDS SUMMARY | 2024-06-19 16:13 | XMS_ITS | Encounter Summary ---
Author Organization [facility] Address [address] [place] [address] Care Team Providers Care Smutter Name Role Phone Maricarmen Prescott MD Primary Care Provider Unava Geoffrey Guardado MD Unavailable Beatriz Talbot JUNIOR PARALEGAL Unavailable Unavailab Beti Patrick MD Primary Care Provider [phone] Johan Griffin Primary Care Provider [phone] Nita Gutierrez JUNIOR PARALEGAL Unavailable [phone] Ayesha Marroquin PA-C Primary Care Provider Unavail able Encounter Details Date Type Department Care Team Description 09/04/2015 Grain Elevator Man Report Medical Records [address] [place] [address] Josh Baig Social History Tobacco Use Types Packs/Day Years [...] on filedocumented in this encounter Care Teams Smutter Relationship Specialty Start Date End Date Marciarmen Prescott MD PCP - General 02/01/07 09/07/21 Beti Carrion MD [address] [place] [address] PCP - General Internal Medicine 10/04/21 11/20/22 Johan Griffin [address] [place] [address] PCP - General Internal Medicine 09/08/21 10/03/21 Ayesha Marroquin PA-C [address] [place] [address] PCP - General Internal Medicine 12/29/22 Geoffrey Lynn MD Specialist Cardiovascular Disease 10/20/20 Beatriz Talbot NP Specialist Cardiology 10/20/20 12/27/22 Nita Gutierrez NP [address] [place] [address] Cardiology 12/28/22 documented as of this encounter
--- OUTSIDE RECORDS SUMMARY | 2024-06-19 16:13 | XMS_ITS | Encounter Summary ---
Author Organization [facility] Address [address] [place] [address] Care Team Providers Care Patient Scheduling Coordinator Name Role Phone Maricarmen Prescott MD Primary Care Provider Unava Geoffrey Guardado MD Unavailable Beatriz Talbot NP Unavailable Unavailab Beti Patrick MD Primary Care Provider [phone] Johan Griffin Primary Care Provider [phone] Nita Gutierrez NP Unavailable [phone] Ayesha Marroquin PA-C Primary Care Provider Unavail able Encounter Details Date Type Department Care Team Description 12/09/2015 Hospital Medical Records [address] [place] [address] Abstract, Provider Social History Tobacco Use Types [...] on filedocumented in this encounter Care Teams Patient Scheduling Coordinator Relationship Specialty Start Date End Date Maricarmen Prescott MD PCP - General 02/01/07 09/07/21 Beti Carrion MD [address] [place] [address] PCP - General Internal Medicine 10/04/21 11/20/22 Johan Griffin [address] [place] [address] PCP - General Internal Medicine 09/08/21 10/03/21 Ayesha Marroquin PA-C [address] [place] [address] PCP - General Internal Medicine 12/29/22 Geoffrey Lynn MD Specialist Cardiovascular Disease 10/20/20 Beatriz Talbot NP Specialist Cardiology 10/20/20 12/27/22 Nita Gutierrez NP [address] [place] [address] Cardiology 12/28/22 documented as of this encounter
--- OUTSIDE RECORDS SUMMARY | 2024-06-19 16:13 | XMS_ITS | Encounter Summary ---
Author Organization [facility] Address [address] [place] [address] Care Team Providers Care Parachute Supervisor Name Role Phone Maricarmen Prescott MD Primary Care Provider Unava Geoffrey Guardado MD Unavailable Beatriz Talbot NP Unavailable Unavailab Beti Patrick MD Primary Care Provider [phone] Johan Griffin Primary Care Provider [phone] Nita Gutierrez NP Unavailable [phone] Ayesha Marroquin PA-C Primary Care Provider Unavail able Encounter Details Date Type Department Care Team Description 12/13/2015 Hospital Medical Records [address] [place] [address] Abstract, Provider Social History Tobacco Use Types [...] on filedocumented in this encounter Care Teams Parachute Supervisor Relationship Specialty Start Date End Date Maricarmen Prescott MD PCP - General 02/01/07 09/07/21 Beti Carrion MD [address] [place] [address] PCP - General Internal Medicine 10/04/21 11/20/22 Johan Griffin [address] [place] [address] PCP - General Internal Medicine 09/08/21 10/03/21 Ayesha Marroquin PA-C [address] [place] [address] PCP - General Internal Medicine 12/29/22 Geoffrey Lynn MD Specialist Cardiovascular Disease 10/20/20 Beatriz Talbot NP Specialist Cardiology 10/20/20 12/27/22 Nita Gutierrez NP [address] [place] [address] Cardiology 12/28/22 documented as of this encounter
--- OUTSIDE RECORDS SUMMARY | 2024-06-19 16:13 | XMS_ITS | Encounter Summary ---
Author Organization [facility] Address [address] [place] [address] Care Team Providers Care Fermenter Name Role Phone Maricarmen Prescott MD Primary Care Provider Unava ilGeoffrey Hall MD Unavailable Beatriz Talbot NP Unavailable Unavailab Beti Patrick MD Primary Care Provider Johan Griffin Primary Care Provider [phone] Nita Gutierrez NP Unavailable [phone] Ayesha Marroquin PA-C Primary Care Provider Unavail able Reason for Referral * EXTERNAL (Urgent) - Authorized/Booked Specialty Diagnoses / Procedures Referred By Contsd t Referred To Contact ORTHOPEDICS / Orthopedic Procedures REFERRAL TO ORTHOPEDICS (IN NETWORK) Darius Denney MD [address] [place] [address] Center, Occupational [facility] [address] [place] [address] Referral ID Status Reason Start Date Expiration Date V isits Requested Visits Authorized SEE NOTE Authorized/B ooked 01/25/2018 04/26/2018 1 1 Reason for Visit * Reason Onset Date Comments Procurement Technician Feedback 01/25/2018 orthopedics Encounter Details Date Type Department Care Team Description 01/25/2018 Telephone Medicine/Pediatrics - [address] [place] [address] Maricarmen Prescott MD Procurement Technician Feedback (orthopedics) Social History Tobacco Use Types [...] on filedocumented in this encounter Care Teams Fermenter Relationship Specialty Start Date End Date Maricarmen Prescott MD PCP - General 02/01/07 09/07/21 Beti Carrion MD [address] [place] [address] PCP - General Internal Medicine 10/04/21 11/20/22 Johan Griffin [address] [place] [address] PCP - General Internal Medicine 09/08/21 10/03/21 Ayesha Marroquin PA-C [address] [place] [address] PCP - General Internal Medicine 12/29/22 Geoffrey Lynn MD Specialist Cardiovascular Disease 10/20/20 Beatriz Talbot NP Specialist Cardiology 10/20/20 12/27/22 Nita Gutierrez NP [address] [place] [address] Cardiology 12/28/22 documented as of this encounter
--- OUTSIDE RECORDS SUMMARY | 2024-06-19 16:13 | XMS_ITS | Encounter Summary ---
Author Organization [facility] Address [address] [place] [address] Care Team Providers Care Family Support Specialist Name Role Phone Maricarmen Prescott MD Primary Care Provider Unava Geoffrey Guardado MD Unavailable Beatriz Talbot NP Unavailable Unavailab Beti Patrick MD Primary Care Provider [phone] Johan Griffin Primary Care Provider [phone] Nita Gutierrez CONTROL SPECIALIST Unavailable [phone] Ayesha Marroquin PA-C Primary Care Provider Unavail able Encounter Details Date Type Department Care Team Description 04/23/2009 Instructor Substitute Cosmetology Report Medical Records [address] [place] [address] Sai Romo Social History Tobacco Use Types Packs/Day Years Used Date Smoking Tobacco: Never Assessed Sex Assigned at Date Recorded Not on file Job Start Date Occupation Industry Not on file Not on file Not on file documented as of this encounter Plan of Treatment Not on file documented as of this encounter Visit Diagnoses Not on filedocumented in this encounter Care Teams Family Support Specialist Relationship Specialty Start Date End Date Maricarmen Prescott MD PCP - General 02/01/07 09/07/21 Beti Carrion MD [address] [place] [address] PCP - General Internal Medicine 10/04/21 11/20/22 Johan Griffin [address] [place] [address] PCP - General Internal Medicine 09/08/21 10/03/21 Ayesha Marroquin PA-C [address] [place] [address] PCP - General Internal Medicine 12/29/22 Geoffrey Lynn MD Specialist Cardiovascular Disease 10/20/20 Beatriz Talbot NP Specialist Cardiology 10/20/20 12/27/22 Nita Gutierrez NP [address] [place] [address] Cardiology 12/28/22 documented as of this encounter
--- OUTSIDE RECORDS SUMMARY | 2024-06-19 16:13 | XMS_ITS | Encounter Summary ---
Author Organization [facility] Address [address] [place] [address] Care Team Providers Care Chief Service Observer Name Role Phone Maricarmen Prescott MD Primary Care Provider Unava Geoffrey Guardado MD Unavailable Beatriz Talbot NP Unavailable Unavailab Beti Patrick MD Primary Care Provider [phone] Johan Griffin Primary Care Provider [phone] Nita Gutierrez NP Unavailable [phone] Ayesha Marroquin PA-C Primary Care Provider Unavail able Encounter Details Date Type Department Care Team Description 01/10/2018 Transfer Records Medical Records [address] [place] [address] Abstract, Provider Social History Tobacco Use Types [...] on filedocumented in this encounter Care Teams Chief Service Observer Relationship Specialty Start Date End Date Maricarmen Prescott MD PCP - General 02/01/07 09/07/21 Beti Carrion MD [address] [place] [address] PCP - General Internal Medicine 10/04/21 11/20/22 Johan Griffin [address] [place] [address] PCP - General Internal Medicine 09/08/21 10/03/21 Ayesha Marroquin PA-C [address] [place] [address] PCP - General Internal Medicine 12/29/22 Geoffrey Lynn MD Specialist Cardiovascular Disease 10/20/20 Beatriz Talbot NP Specialist Cardiology 10/20/20 12/27/22 Nita Gutierrez NP [address] [place] [address] Cardiology 12/28/22 documented as of this encounter
--- OUTSIDE RECORDS SUMMARY | 2024-06-19 16:13 | XMS_ITS | Encounter Summary ---
Author Organization [facility] Address [address] [place] [address] Care Team Providers Care [facility] Office Supervisor Name Role Phone Maricarmen Prescott MD Primary Care Provider Unava Geoffrey Guardado MD Unavailable Beatriz Talbot NP Unavailable Unavailab Beti Patrick MD Primary Care Provider [phone] Johan Griffin Primary Care Provider [phone] Nita Gutierrez ENERGY CROP FARMER Unavailable [phone] Ayesha Marroquin PA-C Primary Care Provider Unavail able Encounter Details Date Type Department Care Team Description 11/22/2018 Kosher Sealer Report Medical Records [address] [place] [address] Petar Smith MD Social History Tobacco Use [...] on filedocumented in this encounter Care Teams [facility] Office Supervisor Relationship Specialty Start Date End Date Maricarmen Prescott MD PCP - General 02/01/07 09/07/21 Beti Carrion MD [address] [place] [address] PCP - General Internal Medicine 10/04/21 11/20/22 Johan Griffin [address] [place] [address] [id number] PCP - General Internal Medicine 09/08/21 10/03/21 Ayesha Marroquin PA-C [address] [place] [address] PCP - General Internal Medicine 12/29/22 Geoffrey Lynn MD Specialist Cardiovascular Disease 10/20/20 Beatriz Talbot NP Specialist Cardiology 10/20/20 12/27/22 Nita Gutierrez NP [address] [place] [address] Cardiology 12/28/22 documented as of this encounter
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
--- OUTSIDE RECORDS SUMMARY | 2024-06-19 16:13 | XMS_ITS | Encounter Summary ---
Author Organization [facility] Address [address] [place] [address] Care Team Providers Care Education Associate Name Role Phone Maricarmen Prescott MD Primary Care Provider Unava Geoffrey Guardado MD Unavailable Beatriz Talbot NP Unavailable Unavailab Beti Patrick MD Primary Care Provider [phone] Johan Griffin Primary Care Provider Nita Gutierrez LIFE SKILLS INSTRUCTOR Unavailable [phone] Ayesha Marroquin PA-C Primary Care Provider Unavail able Encounter Details Date Type Department Care Team Description 04/03/2008 Meat Molder Report Medical Records [address] [place] [address] Sai Romo Social History Tobacco Use Types [...] filedocumented in this encounter Care Teams Education Associate Relationship Specialty Start Date End Date Maricarmen Prescott MD PCP - General 02/01/07 09/07/21 Beti Carrion MD [address] [place] [address] PCP - General Internal Medicine 10/04/21 11/20/22 Johan Griffin [address] [place] [address] PCP - General Internal Medicine 09/08/21 10/03/21 Ayesha Marroquin PA-C [address] [place] [address] PCP - General Internal Medicine 12/29/22 Geoffrey Lynn MD Specialist Cardiovascular Disease 10/20/20 Beatriz Talbot NP Specialist Cardiology 10/20/20 12/27/22 Nita Gutierrez NP [address] [place] [address] Cardiology 12/28/22 documented as of this encounter
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
--- OUTSIDE RECORDS SUMMARY | 2024-06-19 16:14 | XMS_ITS | Encounter Summary ---
Author Organization [facility] Address [address] [place] [address] [address] Team Prov[address] Care [address] Marker Installer Name Role Phone Maricarmen Prescott MD Primary Care Provider Unava Geoffrey Guardado MD Unavailable Beatriz Talbot EC TEACHER Unavailable Unavailab Beti Patrick MD Primary Care Provider [phone] Johan Griffin Primary Care Provider [phone] Nita Gutierrez EC TEACHER Unavailable [phone] Ayesha Marroquin PA-C Primary Care Provider Unavail able Encounter Details Date Type Department Care Team Description 08/05/2013 Clinical Nurse Educator Report Medical Records [address] [place] [address] Hever Foster MD Social History Tobacco Use [...] on filedocumented in this encounter Care Teams Lane Marker Installer Relationship Specialty Start Date End Date Maricarmen Prescott MD PCP - General 02/01/07 09/07/21 Beti Carrion MD [address] [place] [address] PCP - General Internal Medicine 10/04/21 11/20/22 Johan Griffin [address] [place] [address] PCP - General Internal Medicine 09/08/21 10/03/21 Ayesha Marroquin PA-C [address] [place] [address] PCP - General Internal Medicine 12/29/22 Geoffrey Lynn MD Specialist Cardiovascular Disease 10/20/20 Beatriz Talbot NP Specialist Cardiology 10/20/20 12/27/22 Nita Gutierrez NP [address] [place] [address] Cardiology 12/28/22 documented as of this encounter
--- OUTSIDE RECORDS SUMMARY | 2024-06-19 16:14 | XMS_ITS | Encounter Summary ---
Author Organization [facility] Address [address] [place] [address] Care Team Providers Care Pipefitter Helper Name Role Phone Geoffrey Lynn MD Unavailable Beatriz Talbot NP Unavailable Unavailab Beti Patrick MD Primary Care Provider [phone] Nita Gutierrez OUTSOLE PARAFFINER Unavailable [phone] Ayesha Marroquin PA-C Primary Care Provider Unavail able Encounter Details Date Type Department Care Team Description 12/17/2021 Lamp Tester And Inspector Report Medical Records [address] [place] [address] Segundo Funez MD Social History Tobacco Use [...] on filedocumented in this encounter Care Teams Pipefitter Helper Relationship Specialty Start Date End Date Beti Carrion MD [address] [place] [address] PCP - General Internal Medicine 10/04/21 11/20/22 Ayesha Marroquin PA-C [address] [place] [address] PCP - General Internal Medicine 12/29/22 Geoffrey Lynn MD Specialist Cardiovascular Disease 10/20/20 Beatriz Talbot NP Specialist Cardiology 10/20/20 12/27/22 Nita Gutierrez NP [address] [place] [address] Cardiology 12/28/22 documented as of this encounter
--- OUTSIDE RECORDS SUMMARY | 2024-06-19 16:14 | XMS_ITS | Encounter Summary ---
Author Organization [facility] Address [address] [place] [address] Care Team Providers Care Building Custodial Supervisor Name Role Phone Maricarmen Prescott MD Primary Care Provider Unava Geoffrey Guardado MD Unavailable Beatriz Talbot NP Unavailable Unavailab Beti Patrick MD Primary Care Provider [phone] Johan Griffin Primary Care Provider [phone] Nita Gutierrez CAREER SERVICES REPRESENTATIVE Unavailable [phone] Ayesha Marroquin PA-C Primary Care Provider Unavail able Encounter Details Date Type Department Care Team Description 11/22/2013 Hospital Medical Records [address] [place] [address] Jan Santana MD Social History Tobacco Use [...] on filedocumented in this encounter Care Teams Building Custodial Supervisor Relationship Specialty Start Date End Date Maricarmen Prescott MD PCP - General 02/01/07 09/07/21 Beti Carrion MD [address] [place] [address] PCP - General Internal Medicine 10/04/21 11/20/22 Johan Griffin [address] [place] [address] [phone] PCP - General Internal Medicine 09/08/21 10/03/21 Ayesha Marroquin PA-C [address] [place] [address] PCP - General Internal Medicine 12/29/22 Geoffrey Lynn MD Specialist Cardiovascular Disease 10/20/20 Beatriz Talbot NP Specialist Cardiology 10/20/20 12/27/22 Nita Gutierrez NP [address] [place] [address] Cardiology 12/28/22 documented as of this encounter
--- OUTSIDE RECORDS SUMMARY | 2024-06-19 16:14 | XMS_ITS | Encounter Summary ---
Author Organization [facility] Address [address] [place] [address] Care Team Providers Care Gas Main And Line Fitter Name Role Phone Geoffrey Lynn MD Unavailable Beatriz Talbot NP Unavailable Unavailab Beti Patrick MD Primary Care Provider [phone] Nita Gutierrez ANCILLARY SERVICES MANAGER Unavailable [phone] Ayesha Marroquin PA-C Primary Care Provider Unavail able Reason for Visit * Reason Comments E-prescribe Rx Request Encounter Details Date Type Department Care Team Description 12/27/2021 Refill Adult Medicine [address] [phone] Beti Carrion MD [address] [place] [address] [phone] E-prescribe Rx Request Social History Tobacco Use [...] ?? Patients current insurance carrier is: Payor: [place] / Plan: [place] / Product Type: MEDICARE [id number] ?? documented in this encounter Plan of Treatment Not on file documented as of this encounter Visit Diagnoses Not on filedocumented in this encounter Care Teams Gas Main And Line Fitter Relationship Specialty Start Date End Date Beti Carrion MD [address] [place] [address] PCP - General Internal Medicine 10/04/21 11/20/22 Ayesha Marroquin PA-C [address] [place] [address] PCP - General Internal Medicine 12/29/22 Geoffrey Lynn MD Specialist Cardiovascular Disease 10/20/20 Beatriz Talbot NP Specialist Cardiology 10/20/20 12/27/22 Nita Gutierrez NP [address] [place] [address] Cardiology 12/28/22 documented as of this encounter
--- OUTSIDE RECORDS SUMMARY | 2024-06-19 16:14 | XMS_ITS | Encounter Summary ---
Author Organization [facility] Address [address] [place] [address] Care Team Providers Care Air Quality Instrument Specialist Name Role Phone Maricarmen Prescott MD Primary Care Provider Unava Geoffrey Guardado MD Unavailable Beatriz Talbot NP Unavailable Unavailab Beti Patrick MD Primary Care Provider [phone] Johan Griffin Primary Care Provider [phone] Nita Gutierrez AGENTS' RECORDS CLERK Unavailable [phone] Ayesha Marroqiun PA-C Primary Care Provider Unavail able Encounter Details Date Type Department Care Team Description 09/24/2018 Transfer Records Medical Records [address] [place] [address] Genny Grossman MD Social History Tobacco Use [...] filedocumented in this encounter Care Teams Air Quality Instrument Specialist Relationship Specialty Start Date End Date Maricarmen Prescott MD PCP - General 12/6/07 7/12/22 Beti Carrion MD [address] [place] [address] PCP - General Internal Medicine 10/04/21 11/20/22 Johan Griffin [address] [place], [place] [phone] PCP - General Internal Medicine 09/08/21 10/03/21 Ayesha Marroquin PA-C [address] [place] [address] PCP - General Internal Medicine 12/29/22 Geoffrey Lynn MD Specialist Cardiovascular Disease 10/20/20 Beatriz Talbot NP Specialist Cardiology 10/20/20 12/27/22 Nita Gutierrez NP [address] [place] [address] Cardiology 12/28/22 documented as of this encounter
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
--- OUTSIDE RECORDS SUMMARY | 2024-06-19 16:14 | XMS_ITS | Encounter Summary ---
Author Organization [facility] Address [address] [place] [address] Care Team Providers Care Associate Vice President Name Role Phone Maricarmen Prescott MD Primary Care Provider Unava Geoffrey Guardado MD Unavailable Beatriz Talbot NP Unavailable Unavailab Beti Patrick MD Primary Care Provider [phone] Johan Griffin Primary Care Provider [phone] Nita Gutierrez NP Unavailable [phone] Ayesha Marroquin PA-C Primary Care Provider Unavail able Encounter Details Date Type Department Care Team Description 02/07/2019 [facility] Medical Records [address] [place] [address] Abstract, Provider Social History Tobacco Use Types [...] on filedocumented in this encounter Care Teams Associate Vice President Relationship Specialty Start Date End Date Maricarmen Prescott MD PCP - General 02/01/07 09/07/21 Beti Carrion MD [address] [place] [address] PCP - General Internal Medicine 10/04/21 11/20/22 Johan Griffin [address] [place] [address] PCP - General Internal Medicine 09/08/21 10/03/21 Ayesha Marroquin PA-C [address] [place] [address] PCP - General Internal Medicine 12/29/22 Geoffrey Lynn MD Specialist Cardiovascular Disease 10/20/20 Beatriz Talbot NP Specialist Cardiology 10/20/20 12/27/22 Nita Gutierrez NP [address] [place] [address] Cardiology 12/28/22 documented as of this encounter
--- OUTSIDE RECORDS SUMMARY | 2024-06-19 16:14 | XMS_ITS | Encounter Summary ---
Author Organization [facility] Address [address] [place] [address] Care Team Providers Care Intelligence Research Specialist Name Role Phone Maricarmen Prescott MD Primary Care Provider Unava ilGeoffrey Hall MD Unavailable Beatriz Talbot NP Unavailable Unavailab Beti Patrick MD Primary Care Provider [phone] Johan Griffin Primary Care Provider [phone] Nita Gutierrez PROJECT ASSISTANT Unavailable [phone] Ayesha Marroquin PA-C Primary Care Provider Unavail able Encounter Details Date Type Department Care Team Description 02/17/2021 Orders Only Medical Records [address] [place] [address] Genny Grossman MD Social History Tobacco Use [...] Date/Time Associated Diagnosis Comments OUTSIDE LAB Routine 02/16/2021 documented in this encounter Results * OUTSIDE LAB (02/16/2021) Genny Grossman MD LAB documented in this encounter Visit Diagnoses Not on filedocumented in this encounter Care Teams Intelligence Research Specialist Relationship Specialty Start Date End Date Maricarmen Prescott MD PCP - General 02/01/07 09/07/21 Beti Carrion MD [address] [place] [address] PCP - General Internal Medicine 10/04/21 11/20/22 Johan Griffin [address] [place] [address] PCP - General Internal Medicine 09/08/21 10/03/21 Ayesha Marroquin PA-C [address] [place] [address] PCP - General Internal Medicine 12/29/22 Geoffrey Lynn MD Specialist Cardiovascular Disease 10/20/20 Beatriz Talbot NP Specialist Cardiology 10/20/20 12/27/22 Nita Gutierrez NP [address] [place] [address] Cardiology 12/28/22 documented as of this encounter
--- OUTSIDE RECORDS SUMMARY | 2024-06-19 16:14 | XMS_ITS | Encounter Summary ---
Author Organization [facility] Address [address] [place] [address] Care Team Providers Care Police Liaison Name Role Phone Maricarmen Prescott MD Primary Care Provider Unava ilable Geoffrey Lynn MD Unavailable Beatriz Talbot NP Unavailable Unavailab Beti Patrick MD Primary Care Provider [phone] Johan Griffin Primary Care Provider [phone] Nita Gutierrez MEAT AND SEAFOOD CLERK Unavailable [phone] Ayesha Marroquin PA-C Primary Care Provider Unavail able Reason for Referral * Specialist (Routine) - Authorized/Booked Specialty Diagnoses / Procedures Referred By Contact Referred To Contact ORTHOPEDICS / Orthopedic Procedures REFERRAL TO ORTHOPEDICS Maricarmen Prescott MD [address] [place] [address] External Orthopedics Referral ID Status Reason Start Date Expiration Date V isits Requested Visits Authorized SEE REVIEW 08/14/13 Authorized/ Booked 08/13/2013 11/13/2013 1 1 Reason for Visit * Reason Onset Date Comments Hip Pain 08/13/2013 Encounter Details Date Type Department Care Team Description 08/13/2013 Telephone Medicine/Pediatrics - [address] [phone] Maricarmen Prescott MD Hip Pain Social History [...] # at this time I will contact [place] to see status on request and verify [...] tearful, she has sen Dr Foster at [facility], he advises R total hip replacement CARLOS A, Bone on bone ,[facility] is out of network for patient Call to [facility] for last 3 notes to be faxed over [phone] Will ask another provider to review for out of network referral But may mihaela to wait for PCP review on 08/19 , Patient is aware * Telephone Encounter - Sai Baeza - 08/13/2013 1:29 PM EDT Pt called and would really like to speak to a nurse otr Dr. Prescott about her ongoing hip issue. Shewas told by [facility] that her hips are really bad and [...] filedocumented in this encounter Care Teams Police Liaison Relationship Specialty Start Date End Date Maricarmen Prescott MD PCP - General 02/01/07 09/07/21 Beti Carrion MD [address] [place] [address] PCP - General Internal Medicine 10/04/21 11/20/22 Johan Griffin [address] [place] [address] PCP - General Internal Medicine 09/08/21 10/03/21 Ayesha Marroquin PA-C [address] [place] [address] PCP - General Internal Medicine 12/29/22 Geoffrey Lynn MD Specialist Cardiovascular Disease 10/20/20 Beatriz Talbot NP Specialist Cardiology 10/20/20 12/27/22 Nita Gutierrez NP [address] [place] [address] Cardiology 12/28/22 documented as of this encounter
--- OUTSIDE RECORDS SUMMARY | 2024-06-19 16:14 | XMS_ITS | Encounter Summary ---
Author Organization [facility] Address [address] [place] [address] Care Team Providers Care Cash Applications Representative Name Role Phone Maricarmen Prescott MD Primary Care Provider Unava Geoffrey Guardado MD Unavailable Beatriz Talbot ATTENDANT SELF SERVICE STORE Unavailable Unavailab Beti Patrick MD Primary Care Provider [phone] Johan Griffin Primary Care Provider [phone] Nita Gutierrez ATTENDANT SELF SERVICE STORE Unavailable [phone] Ayesha Marroquin PA-C Primary Care Provider Unavail able Encounter Details Date Type Department Care Team Description 09/13/2013 Controlled Substance Plan Medical Records [address] [place] [address] Abstract, Provider Social History Tobacco Use Types [...] on filedocumented in this encounter Care Teams Cash Applications Representative Relationship Specialty Start Date End Date Maricarmen Prescott MD PCP - General 02/01/07 09/07/21 Beti Carrion MD [address] [place] [address] PCP - General Internal Medicine 10/04/21 11/20/22 Johan Griffin [address] [place] [address] PCP - General Internal Medicine 09/08/21 10/03/21 Ayesha Marroquin PA-C [address] [place] [address] PCP - General Internal Medicine 12/29/22 Geoffrey Lynn MD Specialist Cardiovascular Disease 10/20/20 Beatriz Talbot NP Specialist Cardiology 10/20/20 12/27/22 Nita Gutierrez NP [address] [place] [address] Cardiology 12/28/22 documented as of this encounter
--- OUTSIDE RECORDS SUMMARY | 2024-06-19 16:14 | XMS_ITS | Encounter Summary ---
Author Organization [facility] Address [address] [place] [address] Care Team Providers Care Liquor Merchant Name Role Phone Maricarmen Prescott MD Primary Care Provider Unava Geoffrey Guardado MD Unavailable Beatriz Talbot NP Unavailable Unavailab Beti Patrick MD Primary Care Provider [phone] Johan Griffin Primary Care Provider [phone] Nita Gutierrez NP Unavailable [phone] Ayesha Marroquin PA-C Primary Care Provider Unavail able Encounter Details Date Type Department Care Team Description 03/20/2017 [facility] Medical Records [address] [place] [address] Abstract, Provider Social History Tobacco Use Types [...] on filedocumented in this encounter Care Teams Liquor Merchant Relationship Specialty Start Date End Date Maricarmen Prescott MD PCP - General 02/01/07 09/07/21 Beti Carrion MD [address] [place] [address] PCP - General Internal Medicine 10/04/21 11/20/22 Johan Griffin [address] [place] [address] PCP - General Internal Medicine 09/08/21 10/03/21 Ayesha Marroquin PA-C [address] [place] [address] PCP - General Internal Medicine 12/29/22 Geoffrey Lynn MD Specialist Cardiovascular Disease 10/20/20 Beatriz Talbot NP Specialist Cardiology 10/20/20 12/27/22 Nita Gutierrez NP [address] [place] [address] Cardiology 12/28/22 documented as of this encounter
--- OUTSIDE RECORDS SUMMARY | 2024-06-19 16:14 | XMS_ITS | Encounter Summary ---
Author Organization [facility] Address [address] [place] [address] Care Team Providers Care Universal Branch Consultant Name Role Phone Maricarmen Prescott MD Primary Care Provider Unava ilGeoffrey Hall MD Unavailable Beatriz Talbot NP Unavailable Unavailab Beti Patrick MD Primary Care Provider [phone] Johan Griffin Primary Care Provider [phone] Nita Gutierrez NP Unavailable [phone] Ayesha Marroquin PA-C Primary Care Provider Unavail able Encounter Details Date Type Department Care Team Description 05/09/2016 Orders Only Medicine/Pediatrics - [address] [id number] Nasim Byrd PA-C Social History Tobacco Use [...] on filedocumented in this encounter Care Teams Universal Branch Consultant Relationship Specialty Start Date End Date Maricarmen Prescott MD PCP - General 02/01/07 09/07/21 Beti Carrion MD [address] [place] [address] PCP - General Internal Medicine 10/04/21 11/20/22 Johan Griffin [address] [place] [address] PCP - General Internal Medicine 09/08/21 10/03/21 Ayesha Marroquin PA-C [address] [place] [address] PCP - General Internal Medicine 12/29/22 Geoffrey Lynn MD Specialist Cardiovascular Disease 10/20/20 Beatriz Talbot NP Specialist Cardiology 10/20/20 12/27/22 Nita Gutierrez NP [address] [place] [address] Cardiology 12/28/22 documented as of this encounter
--- OUTSIDE RECORDS SUMMARY | 2024-06-19 16:14 | XMS_ITS | Encounter Summary ---
Author Organization [facility] Address [address] [place] [address] Care Team Providers Care Pan Helper Name Role Phone Geoffrey Lynn MD Unavailable Beatriz Talbot NP Unavailable Unavailab Beti Patrick MD Primary Care Provider [phone] Nita Gutierrez STENOTYPE MACHINE OPERATOR Unavailable [phone] Ayesha Marroquin PA-C Primary Care Provider Unavail able Reason for Visit * Reason Onset Date Comments refill request 12/03/2021 Encounter Details Date Type Department Care Team Description 12/03/2021 Refill Adult Medicine [address] [address] Beti Carrion MD [address] [place] [address] [phone] refill request Social History Tobacco Use Types [...] insurance carrier is: [place] / [place] / Product Type: MEDICARE [id number] documented in this encounter Plan of Treatment Not on file documented as of this encounter Visit Diagnoses Not on filedocumented in this encounter Care Teams Pan Helper Relationship Specialty Start Date End Date Beti Carrion MD [address] [place] [address] PCP - General Internal Medicine 10/04/21 11/20/22 Ayesha Marroquin PA-C [address] [place] [address] PCP - General Internal Medicine 12/29/22 Geoffrey Lynn MD Specialist Cardiovascular Disease 10/20/20 Beatriz Talbot NP Specialist Cardiology 10/20/20 12/27/22 Nita Gutierrez NP [address] [place] [address] Cardiology 12/28/22 documented as of this encounter
--- OUTSIDE RECORDS SUMMARY | 2024-06-19 16:14 | XMS_ITS | Encounter Summary ---
Author Organization [facility] Address [address] [place] [address] Care Team Providers Care Ingot Supervisor Name Role Phone Geoffrey Lynn MD Unavailable Beatriz Talbot NP Unavailable Unavailab Beti Patrick MD Primary Care Provider [phone] Nita Gutierrez BLUE LINE HANGER Unavailable [phone] Ayesha Marroquin PA-C Primary Care Provider Unavail able Encounter Details Date Type Department Care Team Description 11/26/2021 [facility] Medical Records [address] [place] [address] Kristi Contreras MD Social History Tobacco Use [...] on filedocumented in this encounter Care Teams Ingot Supervisor Relationship Specialty Start Date End Date Beti Cariron MD [address] [place] [address] PCP - General Internal Medicine 10/04/21 11/20/22 Ayesha Marroquin PA-C [address] [place] [address] PCP - General Internal Medicine 12/29/22 Geoffrey Lynn MD Specialist Cardiovascular Disease 10/20/20 Beatriz Talbot NP Specialist Cardiology 10/20/20 12/27/22 Nita Gutierrez NP [address] [place] [address] Cardiology 12/28/22 documented as of this encounter
--- OUTSIDE RECORDS SUMMARY | 2024-06-19 16:14 | XMS_ITS | Encounter Summary ---
Author Organization [facility] Address [address] [place] [address] Care Team Providers Care Electrical Assembly Technician Name Role Phone Geoffrey Lynn MD Unavailable Beatriz Talbot NP Unavailable Unavailab Beti Patrick MD Primary Care Provider [phone] Nita Gutierrez BED SPRING MAKER Unavailable [phone] Ayesha Marroquin PA-C Primary Care Provider Unavail able Encounter Details Date Type Department Care Team Description 11/16/2021 Orders Only Radiology - [place] [address] [place] [address] Maricarmen Prescott MD Social History Tobacco Use [...] on filedocumented in this encounter Care Teams Electrical Assembly Technician Relationship Specialty Start Date End Date Beti Carrion MD [address] [place] [address] PCP - General Internal Medicine 10/04/21 11/20/22 Ayesha Marroquin PA-C [address] [place] [address] PCP - General Internal Medicine 12/29/22 Geoffrey Lynn MD Specialist Cardiovascular Disease 10/20/20 Beatriz Talbot NP Specialist Cardiology 10/20/20 12/27/22 Nita Gutierrez NP [address] [place] [address] Cardiology 12/28/22 documented as of this encounter
--- OUTSIDE RECORDS SUMMARY | 2024-06-19 16:14 | XMS_ITS | Encounter Summary ---
Author Organization [facility] Address [address] [place] [address] Care Team Providers Care Sane Rn Name Role Phone Maricarmen Prescott MD Primary Care Provider Unava Geoffrey Guardado MD Unavailable Beatriz Talbot NP Unavailable Unavailab Beti Patrick MD Primary Care Provider [phone] Johan Griffin Primary Care Provider [phone] Nita Gutierrez NP Unavailable [phone] Ayesha Marroquin PA-C Primary Care Provider Unavail able Encounter Details Date Type Department Care Team Description 02/01/2016 Supervisor Green End Department Report Medical Records [address] [place] [address] [facility] Social History Tobacco Use Types Packs/Day [...] on filedocumented in this encounter Care Teams Sane Rn Relationship Specialty Start Date End Date Maricarmen Prescott MD PCP - General 02/01/07 09/07/21 Beti Carrion MD [address] [place] [address] PCP - General Internal Medicine 10/04/21 11/20/22 Johan Griffin [address] [place] [address] PCP - General Internal Medicine 09/08/21 10/03/21 Ayesha Marroquin PA-C [address] [place] [address] PCP - General Internal Medicine 12/29/22 Geoffrey Lynn MD Specialist Cardiovascular Disease 10/20/20 Beatriz Talbot NP Specialist Cardiology 10/20/20 12/27/22 Nita Gutierrez NP [address] [place] [address] Cardiology 12/28/22 documented as of this encounter
--- OUTSIDE RECORDS SUMMARY | 2024-06-19 16:14 | XMS_ITS | Encounter Summary ---
Author Organization [facility] Address [address] [place] [address] Care Team Providers Care Sagger Soak Name Role Phone Geoffrey Lynn MD Unavailable Beatriz Talbot NP Unavailable Unavailab Beti Patrick MD Primary Care Provider [phone] Nita Gutierrez NP Unavailable [phone] Ayesha Marroquin PA-C Primary Care Provider Unavail able Reason for Visit * Reason Comments E-prescribe Rx Request Encounter Details Date Type Department Care Team Description 11/30/2021 Refill Gastroenterology - [place] [address] [phone] Michel Higuera PA-C [address] [address] E-prescribe Rx Request Social History Tobacco Use [...] on filedocumented in this encounter Care Teams Sagger Soak Relationship Specialty Start Date End Date Beti Carrion MD [address] [place] [address] PCP - General Internal Medicine 10/04/21 11/20/22 Ayesha Marroquin PA-C [address] [place] [address] PCP - General Internal Medicine 12/29/22 Geoffrey Lynn MD Specialist Cardiovascular Disease 10/20/20 Beatriz Talbot NP Specialist Cardiology 10/20/20 12/27/22 Nita Gutierrez NP [address] [place] [address] Cardiology 12/28/22 documented as of this encounter
--- OUTSIDE RECORDS SUMMARY | 2024-06-19 16:14 | XMS_ITS | Encounter Summary ---
Author Organization [facility] Address [address] [place] [address] Care Team Providers Care Workforce Development Specialist Name Role Phone Maricarmen Prescott MD Primary Care Provider Unava ilGeoffrey Hall MD Unavailable Beatriz Talbot NP Unavailable Unavailab Beti Patrick MD Primary Care Provider [phone] Johan Griffin Primary Care Provider [phone] Nita Gutierrez VIDEO CAMERA OPERATOR Unavailable [phone] Ayesha Marroquin PA-C Primary Care Provider Unavail able Reason for Visit * Reason Onset Date Comments Necktie Operator Pockets And Pieces Feedback 07/08/2014 Dr Shraddha Leggett Encounter Details Date Type Department Care Team Description 07/08/2014 Telephone Medicine/Pediatrics - [address] [phone] Laurel Duffy PA-C Necktie Operator Pockets And Pieces Feedback (Dr Shraddha Leggett) Social History Tobacco Use Types Packs/Day Years [...] encounter Miscellaneous Notes * Telephone Encounter - Kiara Bullard - 07/08/2014 11:15 AM EDT Angi Senior Auth # [id number] Visits 07/08/14-07/09/15 Order and MRI report faxed to Dr Leggett's office for review. Office will fax back appointment information. 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 documented in this encounter Plan of Treatment Not on file documented as of this encounter Visit Diagnoses Not on filedocumented in this encounter Care Teams Workforce Development Specialist Relationship Specialty Start Date End Date Maricarmen Prescott MD PCP - General 02/01/07 09/07/21 Beti Carrion MD [address] [place] [address] PCP - General Internal Medicine 10/04/21 11/20/22 Johan Griffin [address] [place] [address] PCP - General Internal Medicine 09/08/21 10/03/21 Ayesha Marroquin PA-C [address] [place] [address] PCP - General Internal Medicine 12/29/22 Geoffrey Lynn MD Specialist Cardiovascular Disease 10/20/20 Beatriz Talbot NP Specialist Cardiology 10/20/20 12/27/22 Nita Gutierrez NP [address] [place] [address] [phone] Cardiology 12/28/22 documented as of this encounter
--- OUTSIDE RECORDS SUMMARY | 2024-06-19 16:14 | XMS_ITS | Encounter Summary ---
Author Organization [facility] Address [address] [place] [address] Care Team Providers Care Endoscopy Support Specialist Name Role Phone Maricarmen Prescott MD Primary Care Provider Unava Geoffrey Guardado MD Unavailable Beatriz Talbot NP Unavailable Unavailab Beti Patrick MD Primary Care Provider [phone] Johan Griffin Primary Care Provider [phone] Nita Gutierrez WIRE WEAVER CLOTH Unavailable [phone] Ayesha Marroquin PA-C Primary Care Provider Unavail able Reason for Referral * Non JESSY (Routine) - Authorized/Booked Specialty Diagnoses / Procedures Referred By Contac t Referred To Contact Pulmonology Diagnoses Dyspnea on exertion Procedures REFERRAL TO PULMONOLOGY Maricarmen Prescott MD [address] [place] [address] Pulmo/Brittney [address] [place] [address] Referral ID Status Reason Start Date Expiration Date V isits Requested Visits Authorized [id number] Authorized/B ooked 07/04/2017 07/04/2018 1 1 Reason for Visit * Reason Onset Date Comments TEST RESULTS 07/03/2017 Encounter Details Date Type Department Care Team Description 07/03/2017 Telephone Medicine/Pediatrics - [address] [address] Maricarmen Prescott MD TEST RESULTS Social History Tobacco Use Types Packs/Day Years Used Date Smoking Tobacco: Former Cigarettes 0.2 1 04/17/1980 - 02/27/1997 Smokeless Tobacco: Never [...] Miscellaneous Notes * Telephone Encounter - Nita SteelePBrennanNBrennan - 07/04/2017 12:59 PM EDT Pt notified as written below She would like PFT done and see pulmo * Telephone Encounter - Maricarmen Prescott MD - 07/04/2017 12:48 PM EDT Her stress test that this was normal - there was no evidence of ischemia. Does not explain her dyspnea on exertion. There is no evidence of any h/o heart attack on her stress testing. We already discussed that I got an officical reading of her EKG to confirm my reading and they agreed. Nothing thatshe needs to worry about. The computer does not always read it correctly. 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 No further work up indicated. Lab work otherwise normal. The only other direction to go is to do PFT's to assess lung function and possibly see pulmonary. (otherwise we wonder if this is stress/anxiety related). * Telephone Encounter - Margarita Mack R.N. - 07/04/2017 9:19 AM EDT Informed labs results, noted the white count is slightly low as per your note Still c/o of overwhelming fatigue Dental cleared and is in process of rescheduling surgery Please advise re: EKG * Telephone Encounter - Vianney Guerra - 07/03/2017 4:53 PM EDT Pt calling for results from 06-21 lab work and [facility] Also wanted her to know her surgery was postponded due to dental issues Awaiting call back documented in this encounter Plan of Treatment Not on file documented as of this encounter Results * PFT FULL (60 MINUTES) (11/13/2017) Impressions HortaErvin Wong MD - 11/13/2017 11/13/2017. Complete PFT with pre/post bronchodilator, plethysmography and DLCO diffusion Technique: Reproducible and Repeatable Graphic recording: There is an obstruction on the graphic recording. No obstruction with excellent response to bronchodilator. No restriction. Normal TLC with increased RV and RV/TLC ratio suggestive of air trapping. Mildly decreased DLCO diffusion. DLCO: 66 Reduced DLCO is compatible with mild loss of aveolar arterial exchange function. All of these findings are suggestive of: Asthma / Hyper-reactive Airway Disease and Decreased or loss of the effective pulmonary alveolarcapilaris surface membrane ??like Emphysema, Fibrosis, Anemia, Drugs, Heart failure and others. Also poor maneuvers or poor inspiratory technique in healthy people. Clinical correlation is required. For details please review a copy of the test available in EMR Maricarmen Prescott MD PULMONOLOGY documented in this encounter Visit Diagnoses Diagnosis Dyspnea on exertion- Primary Other dyspnea and respiratory abnormality Dyspnea on exertion Other dyspnea and respiratory abnormality documented in this encounter Care Teams Endoscopy Support Specialist Relationship Specialty Start Date End Date Maricarmen Prescott MD PCP - General 02/01/07 09/07/21 Beti Carrion MD [address] [place] [address] PCP - General Internal Medicine 10/04/21 11/20/22 Johan Griffin [address] [place] [address] PCP - General Internal Medicine 09/08/21 10/03/21 Ayesha Marroquin PA-C [address] [place] [address] PCP - General Internal Medicine 12/29/22 Geoffrey Lynn MD Specialist Cardiovascular Disease 10/20/20 Beatriz Talbot NP Specialist Cardiology 10/20/20 12/27/22 Nita Gutierrez NP [address] [place] [address] Cardiology 12/28/22 documented as of this encounter
--- OUTSIDE RECORDS SUMMARY | 2024-06-19 16:14 | XMS_ITS | Encounter Summary ---
Author Organization [facility] Address [address] [place] [address] Care Team Providers Care Heel Varnisher Name Role Phone Maricarmen Prescott MD Primary Care Provider Unava ilGeoffrey Hall MD Unavailable Beatriz Talbot NP Unavailable Unavailab Beti Patrick MD Primary Care Provider [phone] Johan Griffin Primary Care Provider [phone] Nita Gutierrez NP Unavailable [phone] Ayesha Marroquin PA-C Primary Care Provider Unavail able Reason for Visit * Reason Onset Date Comments REFERRAL 07/04/2016 Encounter Details Date Type Department Care Team Description 07/04/2016 Telephone [facility] [address] [place] [address] Margie Alonso FNP [address] [place] [address] REFERRAL Social History Tobacco Use Types Packs/Day [...] on filedocumented in this encounter Care Teams Heel Varnisher Relationship Specialty Start Date End Date Maricarmen Prescott MD PCP - General 02/01/07 09/07/21 Beti Carrion MD [address] [place] [address] PCP - General Internal Medicine 10/04/21 11/20/22 Johan Griffin [address] [place] [address] PCP - General Internal Medicine 09/08/21 10/03/21 Ayesha Marroquin PA-C [address] [place] [address] PCP - General Internal Medicine 12/29/22 Geoffrey Lynn MD Specialist Cardiovascular Disease 10/20/20 Beatriz Talbot NP Specialist Cardiology 10/20/20 12/27/22 Nita Gutierrez NP [address] [place] [address] Cardiology 12/28/22 documented as of this encounter
--- OUTSIDE RECORDS SUMMARY | 2024-06-19 16:14 | XMS_ITS | Encounter Summary ---
Author Organization [facility] Address [address] [place] [address] Care Team Providers Care Magician Helper Name Role Phone Maricarmen Prescott MD Primary Care Provider Unava Geoffrey Guardado MD Unavailable Beatriz Talbot NP Unavailable Unavailab Beti Patrick MD Primary Care Provider [phone] Johan Griffin Primary Care Provider [phone] Nita Gutierrez BEAN SORTER Unavailable [phone] Ayesha Marroquin PA-C Primary Care Provider Unavail able Encounter Details Date Type Department Care Team Description 01/08/2019 Hospital Medical Records [address] [place] [address] Jemima Clay MD Social History Tobacco Use [...] on filedocumented in this encounter Care Teams Magician Helper Relationship Specialty Start Date End Date Maricarmen Prescott MD PCP - General 02/01/07 09/07/21 Beti Carrion MD [address] [place] [address] PCP - General Internal Medicine 10/04/21 11/20/22 Johan Griffin [address] [place], [place] [phone] PCP - General Internal Medicine 09/08/21 10/03/21 Ayesha Marroquin PA-C [address] [place] [address] PCP - General Internal Medicine 12/29/22 Geoffrey Lynn MD Specialist Cardiovascular Disease 10/20/20 Beatriz Talbot NP Specialist Cardiology 10/20/20 12/27/22 Nita Gutierrez NP [address] [place] [address] Cardiology 12/28/22 documented as of this encounter
--- OUTSIDE RECORDS SUMMARY | 2024-06-19 16:14 | XMS_ITS | Encounter Summary ---
Author Organization [facility] Address [address] [place] [address] Care Team Providers Care Transport Pilot Name Role Phone Maricarmen Prescott MD Primary Care Provider Unava Geoffrey Guardado MD Unavailable Beatriz Talbot NP Unavailable Unavailab Beti Patrick MD Primary Care Provider [phone] Johan Griffin Primary Care Provider [phone] Nita Gutierrez NP Unavailable [phone] Ayesha Marroquin PA-C Primary Care Provider Unavail able Encounter Details Date Type Department Care Team Description 07/13/2021 [facility] Medical Records [address] [place] [address] Abstract, Provider Social History Tobacco Use Types [...] on filedocumented in this encounter Care Teams Transport Pilot Relationship Specialty Start Date End Date Maricarmen Prescott MD PCP - General 02/01/07 09/07/21 Beti Carrion MD [address] [place] [address] PCP - General Internal Medicine 10/04/21 11/20/22 Johan Griffin [address] [place] [address] PCP - General Internal Medicine 09/08/21 10/03/21 Ayesha Marroquin PA-C [address] [place] [address] PCP - General Internal Medicine 12/29/22 Geoffrey Lynn MD Specialist Cardiovascular Disease 10/20/20 Beatriz Talbot NP Specialist Cardiology 10/20/20 12/27/22 Nita Gutierrez NP [address] [place] [address] Cardiology 12/28/22 documented as of this encounter
--- OUTSIDE RECORDS SUMMARY | 2024-06-19 16:14 | XMS_ITS | Encounter Summary ---
Author Organization [facility] Address [address] [place] [address] Care Team Providers Care Otr Company Driver Name Role Phone Maricarmen Prescott MD Primary Care Provider Unava Geoffrey Guardado MD Unavailable Beatriz Talbot NP Unavailable Unavailab Beti Patrick MD Primary Care Provider [phone] Johan Griffin Primary Care Provider [phone] Nita Gutierrez SERVICE TECH/WELDER Unavailable [phone] Ayesha Marroquin PA-C Primary Care Provider Unavail able Encounter Details Date Type Department Care Team Description 11/26/2013 Hospital Medical Records [address] [place] [address] Elias Daniels Social History Tobacco Use Types Packs/Day Years [...] on filedocumented in this encounter Care Teams Otr Company Driver Relationship Specialty Start Date End Date Maricarmen Prescott MD PCP - General 02/01/07 09/07/21 Beti Carrion MD [address] [place] [address] PCP - General Internal Medicine 10/04/21 11/20/22 Johan Griffin [address] [place] [address] PCP - General Internal Medicine 09/08/21 10/03/21 Ayesha Marroquin PA-C [address] [place] [address] PCP - General Internal Medicine 12/29/22 Geoffrey Lynn MD Specialist Cardiovascular Disease 10/20/20 Beatriz Talbot NP Specialist Cardiology 10/20/20 12/27/22 Nita Gutierrez NP [address] [place] [address] Cardiology 12/28/22 documented as of this encounter
--- OUTSIDE RECORDS SUMMARY | 2024-06-19 16:14 | XMS_ITS | Encounter Summary ---
Author Organization [facility] Address [address] [place] [address] Care Team Providers Care Drawing Machine Operator Name Role Phone Maricarmen Prescott MD Primary Care Provider Unava Geoffrey Guardado MD Unavailable Beatriz Talbot WELDING MACHINE OPERATOR ARC Unavailable Unavailab Beti Patrick MD Primary Care Provider [phone] Johan Griffin Primary Care Provider [phone] Nita Gutierrez WELDING MACHINE OPERATOR ARC Unavailable [phone] Ayesha Marroquin PA-C Primary Care Provider Unavail able Encounter Details Date Type Department Care Team Description 01/02/2015 Business Doc Medical Records [address] [place] [id number] Abstract, Provider Social History Tobacco Use Types [...] on filedocumented in this encounter Care Teams Drawing Machine Operator Relationship Specialty Start Date End Date Maricarmen Prescott MD PCP - General 02/01/07 09/07/21 Beti Carrion MD [address] [place] [address] PCP - General Internal Medicine 10/04/21 11/20/22 Johan Griffin [address] [place] [address] PCP - General Internal Medicine 09/08/21 10/03/21 Ayesha Marroquin PA-C [address] [place] [address] PCP - General Internal Medicine 12/29/22 Geoffrey Lynn MD Specialist Cardiovascular Disease 10/20/20 Beatriz Talbot NP Specialist Cardiology 10/20/20 12/27/22 Nita Gutierrez NP [address] [place] [address] Cardiology 12/28/22 documented as of this encounter
--- OUTSIDE RECORDS SUMMARY | 2024-06-19 16:14 | XMS_ITS | Encounter Summary ---
Author Organization [facility] Address [address] [place] [address] Care Team Providers Care Commercial Accountant Name Role Phone Maricarmen Prescott MD Primary Care Provider Unava ilGeoffrey Hall MD Unavailable Beatriz Talbot NP Unavailable Unavailab Beti Patrick MD Primary Care Provider [phone] Johan Griffin Primary Care Provider [phone] Nita Gutierrez NP Unavailable [phone] Ayesha Marroquin PA-C Primary Care Provider Unavail able Encounter Details Date Type Department Care Team Description 05/25/2021 Orders Only Radiology - [address] [id number] Maricarmen Prescott MD Social History Tobacco Use [...] on filedocumented in this encounter Care Teams Commercial Accountant Relationship Specialty Start Date End Date Maricarmen Prescott MD PCP - General 02/01/07 09/07/21 Beti Carrion MD [address] [place] [address] PCP - General Internal Medicine 10/04/21 11/20/22 Johan Griffin [address] [place] [address] PCP - General Internal Medicine 09/08/21 10/03/21 Ayesha Marroquin PA-C [address] [place] [address] PCP - General Internal Medicine 12/29/22 Geoffrey Lynn MD Specialist Cardiovascular Disease 10/20/20 Beatriz Talbot NP Specialist Cardiology 10/20/20 12/27/22 Nita Gutierrez NP [address] [place] [address] Cardiology 12/28/22 documented as of this encounter
--- OUTSIDE RECORDS SUMMARY | 2024-06-19 16:14 | XMS_ITS | Encounter Summary ---
Author Organization [facility] Address [address] [place] [address] Care Team Providers Care Food Service Cashier Name Role Phone Geoffrey Lynn MD Unavailable Beatriz Talbot NP Unavailable Unavailab Beti Patrick MD Primary Care Provider [phone] Nita Gutierrez INFANTRY OFFICER Unavailable [phone] Ayesha Marroquin PA-C Primary Care Provider Unavail able Encounter Details Date Type Department Care Team Description 12/23/2021 Administrative Assistant Data Entry Report Medical Records [address] [place] [address] Kristi Contreras MD Social History Tobacco Use [...] filedocumented in this encounter Care Teams Food Service Cashier Relationship Specialty Start Date End Date Beti Carrion MD [address] [place] [address] PCP - General Internal Medicine 10/04/21 11/20/22 Ayesha Marroquin PA-C [address] [place] [address] PCP - General Internal Medicine 12/29/22 Geoffrey Lynn MD Specialist Cardiovascular Disease 10/20/20 Beatriz Talbot NP Specialist Cardiology 10/20/20 12/27/22 Nita Gutierrez NP [address] [place] [address] Cardiology 12/28/22 documented as of this encounter
--- OUTSIDE RECORDS SUMMARY | 2024-06-19 16:14 | XMS_ITS | Encounter Summary ---
Author Organization [facility] Address [address] [place] [address] Care Team Providers Care Flat Sorting Machine Clerk Name Role Phone Maricarmen Prescott MD Primary Care Provider Unava Geoffrey Guardado MD Unavailable Beatriz Talbot NP Unavailable Unavailab Beti Patrick MD Primary Care Provider [phone] Johan Griffin Primary Care Provider [phone] Nita Gutierrez NP Unavailable [phone] Ayesha Marroquin PA-C Primary Care Provider Unavail able Encounter Details Date Type Department Care Team Description 10/20/2016 [facility] Medical Records [address] [place] [address] Abstract, Provider Social History Tobacco Use Types [...] on filedocumented in this encounter Care Teams Flat Sorting Machine Clerk Relationship Specialty Start Date End Date Maricarmen Prescott MD PCP - General 02/01/07 09/07/21 Beti Carrion MD [address] [place] [address] PCP - General Internal Medicine 10/04/21 11/20/22 Johan Griffin [address] [place] [address] PCP - General Internal Medicine 09/08/21 10/03/21 Ayesha Marroquin PA-C [address] [place] [address] PCP - General Internal Medicine 12/29/22 Geoffrey Lynn MD Specialist Cardiovascular Disease 10/20/20 Beatriz Talbot NP Specialist Cardiology 10/20/20 12/27/22 Nita Gutierrez NP [address] [place] [address] Cardiology 12/28/22 documented as of this encounter
--- OUTSIDE RECORDS SUMMARY | 2024-06-19 16:14 | XMS_ITS | Encounter Summary ---
Author Organization [facility] Address [address] [place] [address] Care Team Providers Care Edging Machine Catcher Name Role Phone Maricarmen Prescott MD Primary Care Provider Unava Geoffrey Guardado MD Unavailable Beatriz Talbot NP Unavailable Unavailab Beti Patrick MD Primary Care Provider [phone] Johan Griffin Primary Care Provider [phone] Nita Gutierrez NP Unavailable [phone] Ayesha Marroquin PA-C Primary Care Provider Unavail able Encounter Details Date Type Department Care Team Description 06/18/2021 [facility] Medical Records [address] [place] [address] Social History Tobacco Use Types Packs/Day Years [...] on filedocumented in this encounter Care Teams Edging Machine Catcher Relationship Specialty Start Date End Date Maricarmen Prescott MD PCP - General 02/01/07 09/07/21 Beti Carrion MD [address] [place] [address] PCP - General Internal Medicine 10/04/21 11/20/22 Johan Griffin [address] [place] [address] PCP - General Internal Medicine 09/08/21 10/03/21 Ayesha Marroquin PA-C [address] [place] [address] PCP - General Internal Medicine 12/29/22 Geoffrey Lynn MD Specialist Cardiovascular Disease 10/20/20 Beatriz Talbot NP Specialist Cardiology 10/20/20 12/27/22 Nita Gutierrez NP [address] [place] [address] Cardiology 12/28/22 documented as of this encounter
--- OUTSIDE RECORDS SUMMARY | 2024-06-19 16:14 | XMS_ITS | Encounter Summary ---
Author Organization [facility] Address [address] [place] [address] Care Team Providers Care Regional Marketing Manager Name Role Phone Maricarmen Prescott MD Primary Care Provider Unava Geoffrey Guardado MD Unavailable Beatriz Talbot NP Unavailable Unavailab Beti Patrick MD Primary Care Provider [phone] Johan Griffin Primary Care Provider [phone] Nita Gutierrez MATCH MAKER Unavailable [phone] Ayesha Marroquin PA-C Primary Care Provider Unavail able Encounter Details Date Type Department Care Team Description 03/29/2021 Thermodynamics Teacher Report Medical Records [address] [place] [address] BrothSegundo hendrickson MD Social History Tobacco Use [...] on filedocumented in this encounter Care Teams Regional Marketing Manager Relationship Specialty Start Date End Date Maricarmen Prescott MD PCP - General 12/6/07 7/12/22 Beti Carrion MD [address] [place] [address] PCP - General Internal Medicine 10/04/21 11/20/22 Johan Griffin [address] [place], [place] 5943220 PCP - General Internal Medicine 09/08/21 10/03/21 Ayesha Marroquin PA-C [address] [place] [address] PCP - General Internal Medicine 12/29/22 Geoffrey Lynn MD Specialist Cardiovascular Disease 10/20/20 Beatriz Talbot NP Specialist Cardiology 10/20/20 12/27/22 Nita Gutierrez NP [address] [place] [address] Cardiology 12/28/22 documented as of this encounter
--- OUTSIDE RECORDS SUMMARY | 2024-06-19 16:14 | XMS_ITS | Clinical Summary ---
Author Organization [facility] Address [address] [place] [address] Care Team Providers Care Tab Machine Operator Name Role Phone Maricarmen Thomas [...] age to complete this topic Care Teams Tab Machine Operator Relationship Specialty Start Date End Date Maricarmen Thomas MD PCP - General Internal Medicine 07/17/18
--- OUTSIDE RECORDS SUMMARY | 2024-06-19 16:14 | XMS_ITS | Encounter Summary ---
Author Organization [facility] Address [address] [place] [address] Care Team Providers Care Dispatcher Chief Coal Slurry Name Role Phone Maricarmen Prescott MD Primary Care Provider Unava ilGeoffrey Hall MD Unavailable Beatriz Talbot NP Unavailable Unavailab Beti Patrick MD Primary Care Provider [phone] Johan Griffin Primary Care Provider [phone] Nita Gutierrez NP Unavailable [phone] Ayesha Marroquin PA-C Primary Care Provider Unavail able Reason for Visit * Reason Onset Date Comments Provider Call Back 11/08/2017 Encounter Details Date Type Department Care Team Description 11/08/2017 Telephone Pulmonology - [place] [address] [facility] [address] [place] [address] Tech, Pulmo/Lina [address] [facility] [address] [place] [address] Provider Call Back Social History Tobacco Use Types Packs/Day Years [...] encounter Miscellaneous Notes * Telephone Encounter - Zee Flores - 11/08/2017 3:26 PM EDT Patient was late for appt today 20min she was told by pcp she needs another 60 min appt before her shoulder surgery on 11/21/2017, can you please look in your schedule and let her know if this would is possible, Please call documented in this encounter Plan of Treatment Not on file documented as of this encounter Visit Diagnoses Not on filedocumented in this encounter Care Teams Dispatcher Chief Coal Slurry Relationship Specialty Start Date End Date Maricarmen Prescott MD PCP - General 02/01/07 09/07/21 Beti Carrion MD [address] [place] [address] PCP - General Internal Medicine 10/04/21 11/20/22 Johan Griffin [address] [place] [address] PCP - General Internal Medicine 09/08/21 10/03/21 Ayesha Marroquin PA-C [address] [place] [address] PCP - General Internal Medicine 12/29/22 Geoffrey Lynn MD Specialist Cardiovascular Disease 10/20/20 Beatriz Talbot NP Specialist Cardiology 10/20/20 12/27/22 Nita Gutierrez NP [address] [place] [address] Cardiology 12/28/22 documented as of this encounter
--- OUTSIDE RECORDS SUMMARY | 2024-06-19 16:14 | XMS_ITS | Encounter Summary ---
Author Organization [facility] Address [address] [place] [address] Care Team Providers Care Salvager Name Role Phone Maricarmen Prescott MD Primary Care Provider Unava ilGeoffrey Hall MD Unavailable Beatriz Talbot NP Unavailable Unavailab Beti Patrick MD Primary Care Provider [phone] Johan Griffin Primary Care Provider [phone] Nita Gutierrez NP Unavailable [phone] Ayesha Marroquin PA-C Primary Care Provider Unavail able Encounter Details Date Type Department Care Team Description 04/22/2021 [facility] Medical Records [address] [place] [address] Abstract, Provider Social History Tobacco Use Types [...] on filedocumented in this encounter Care Teams Salvager Relationship Specialty Start Date End Date Maricarmen Prescott MD PCP - General 02/01/07 09/07/21 Beti Carrion MD [address] [place] [address] PCP - General Internal Medicine 10/04/21 11/20/22 Johan Griffin [address] [place] [address] PCP - General Internal Medicine 09/08/21 10/03/21 Ayesha Marroquin PA-C [address] [place] [address] PCP - General Internal Medicine 12/29/22 Geoffrey Lynn MD Specialist Cardiovascular Disease 10/20/20 Beatriz Talbot NP Specialist Cardiology 10/20/20 12/27/22 Nita Gutierrez NP [address] [place] [address] Cardiology 12/28/22 documented as of this encounter
--- OUTSIDE RECORDS SUMMARY | 2024-06-19 16:14 | XMS_ITS | Encounter Summary ---
Author Organization [facility] Address [address] [place] [address] Care Team Providers Care Dog Show Judge Name Role Phone Maricarmen Prescott MD Primary Care Provider Unava ilGeoffrey Hall MD Unavailable Beatriz Talbot NP Unavailable Unavailab Beti Patrick MD Primary Care Provider [phone] Johan Griffin Primary Care Provider [phone] Nita Gutierrez NP Unavailable [phone] Ayesha Marroquin PA-C Primary Care Provider Unavail able Encounter Details Date Type Department Care Team Description 09/06/2010 Hospital Medical Records [address] [place] [address] Brandon Pimentel MD [address] [place] [address] Social History Tobacco Use Types Packs/Day Years [...] on filedocumented in this encounter Care Teams Dog Show Judge Relationship Specialty Start Date End Date Maricarmen Prescott MD PCP - General 02/01/07 09/07/21 Beti Carrion MD [address] [place] [address] PCP - General Internal Medicine 10/04/21 11/20/22 Johan Griffin [address] [place] [address] PCP - General Internal Medicine 09/08/21 10/03/21 Ayesha Marroquin PA-C [address] [place] [address] PCP - General Internal Medicine 12/29/22 Geoffrey Lynn MD Specialist Cardiovascular Disease 10/20/20 Beatriz Talbot NP Specialist Cardiology 10/20/20 12/27/22 Nita Gutierrez NP [address] [place] [address] Cardiology 12/28/22 documented as of this encounter
--- OUTSIDE RECORDS SUMMARY | 2024-06-19 16:14 | XMS_ITS | Encounter Summary ---
Author Organization [facility] Address [address] [place] [address] Care Team Providers Care Drivability Technician Name Role Phone Maricarmen Prescott MD Primary Care Provider Unava Geoffrey Guardado MD Unavailable Beatriz Talbot NP Unavailable Unavailab Beti Patrick MD Primary Care Provider [phone] Johan Griffin Primary Care Provider [phone] Nita Gutierrez HULL MOLDER Unavailable [phone] Ayesha Marroquin PA-C Primary Care Provider Unavail able Encounter Details Date Type Department Care Team Description 03/10/2019 Customer Complaint Service Supervisor Report Medical Records [address] [place] [address] Segundo Funez MD Social History Tobacco Use [...] on filedocumented in this encounter Care Teams Drivability Technician Relationship Specialty Start Date End Date Maricarmen Prescott MD PCP - General 02/01/07 09/07/21 Beti Carrion MD [address] [place] [address] PCP - General Internal Medicine 10/04/21 11/20/22 Johan Griffin [address] [place], [place] [phone] PCP - General Internal Medicine 09/08/21 10/03/21 Ayesha Marroquin PA-C [address] [place] [address] PCP - General Internal Medicine 12/29/22 Geoffrey Lynn MD Specialist Cardiovascular Disease 10/20/20 Beatriz Talbot NP Specialist Cardiology 10/20/20 12/27/22 Nita Gutierrez NP [address] [place] [address] Cardiology 12/28/22 documented as of this encounter
--- OUTSIDE RECORDS SUMMARY | 2024-06-19 16:14 | XMS_ITS | Encounter Summary ---
Author Organization [facility] Address [address] [place] [address] Care Team Providers Care Project Internship Name Role Phone Maricarmen Prescott MD Primary Care Provider Unava Geoffrey Guardado MD Unavailable Beatriz Talbot CLAY PRODUCTS MACHINE OPERATOR Unavailable Unavailab Beti Patrick MD Primary Care Provider [phone] Johan Griffin Primary Care Provider [phone] Nita Gutierrez CLAY PRODUCTS MACHINE OPERATOR Unavailable [phone] Ayesha Marroquin PA-C Primary Care Provider Unavail able Encounter Details Date Type Department Care Team Description 07/20/2010 Transfer Records Medical Records [address] [place] [address] Gallo Ortiz Social History Tobacco Use Types [...] filedocumented in this encounter Care Teams Project Internship Relationship Specialty Start Date End Date Maricarmen Prescott MD PCP - General 02/01/07 09/07/21 Beti Carrion MD [address] [place] [address] PCP - General Internal Medicine 10/04/21 11/20/22 Johan Griffin [address] [place] [address] PCP - General Internal Medicine 09/08/21 10/03/21 Ayesha Marroquin PA-C [address] [place] [address] PCP - General Internal Medicine 12/29/22 Geoffrey Lynn MD Specialist Cardiovascular Disease 10/20/20 Beatriz Talbot NP Specialist Cardiology 10/20/20 12/27/22 Nita Gutierrez NP [address] [place] [address] Cardiology 12/28/22 documented as of this encounter
--- OUTSIDE RECORDS SUMMARY | 2024-06-19 16:14 | XMS_ITS | Encounter Summary ---
Author Organization [facility] Address [address] [place] [address] Care Team Providers Care Primary Education Professor Name Role Phone Geoffrey Lynn MD Unavailable Beatriz Talbot NP Unavailable Unavailab Beti Patrick MD Primary Care Provider [phone] Nita Gutierrez FRONTEND ENGINEER Unavailable [phone] Ayesha Marroquin PA-C Primary Care Provider Unavail able Encounter Details Date Type Department Care Team Description 12/09/2021 Manager Telecom Report Medical Records [address] [place] [address] Rafael Chamorro PA-C Social History Tobacco Use Types Packs/Day [...] on filedocumented in this encounter Care Teams Primary Education Professor Relationship Specialty Start Date End Date Beti Carrion MD [address] [place] [address] PCP - General Internal Medicine 10/04/21 11/20/22 Ayesha Marroquin PA-C [address] [place] [address] PCP - General Internal Medicine 12/29/22 Geoffrey Lynn MD Specialist Cardiovascular Disease 10/20/20 Beatriz Talbot NP Specialist Cardiology 10/20/20 12/27/22 Nita Gutierrez NP [address] [place] [address] Cardiology 12/28/22 documented as of this encounter
--- OUTSIDE RECORDS SUMMARY | 2024-06-19 16:14 | XMS_ITS | Clinical Summary ---
Author Organization [facility] Address [address] [address] Care Team Providers Care Flight Manager Name Role Phone Ayesha Marroquin PA-C [...] topic Insurance Medicare Medicaid [place] Care Teams Flight Manager Relationship Specialty Start Date End Date Ayesha Marroquin PA-C [address] [place] [address] PCP - General Physician Central Supply Technician 08/23/23
--- OUTSIDE RECORDS SUMMARY | 2024-06-19 16:14 | XMS_ITS | Encounter Summary ---
Author Organization [facility] Address [address] [place] [address] Care Team Providers Care Project Engineer Chemicals Name Role Phone Maricarmen Prescott MD Primary Care Provider Unava ilGeoffrey Hall MD Unavailable Beatriz Talbot NP Unavailable Unavailab Beti Patrick MD Primary Care Provider [phone] Johan Griffin Primary Care Provider [phone] Nita Gutierrez PROVIDER CONTRACTING CONSULTANT Unavailable [phone] Ayesha Marroquin PA-C Primary Care Provider Unavail able Reason for Visit * Reason Onset Date Comments dizziness 01/19/2016 Encounter Details Date Type Department Care Team Description 01/19/2016 Telephone Medicine/Pediatrics - [address] [address] Maricarmen Prescott MD dizziness Social History Tobacco [...] Miscellaneous Notes * Telephone Encounter - Nita Pemberton 01/19/2016 10:54 AM EST Pt states she has been very dizzy this am she is able to walk and function She has a hx of vertigo , she states this is the worse it has been No other sx no weakness Apt booked * Telephone Encounter - Grecia Herrera - 01/19/2016 10:37 AM EST Symptoms patient is presenting: dizzy since this AM. If pain or injury related was it due to an accident at work or from a motor vehicle accident? NO If yes, gather 3rd alliance party insurance information Date of accident/Injury: How long has patient had these symptoms?: this AM PCP: Maricarmen Prescott Payor: MEDICARE-LendLayer / Plan: MEDICARE-LendLayer / Product Type: MEDICARE [id number] documented in this encounter Plan of Treatment Not on file documented as of this encounter Visit Diagnoses Not on filedocumented in this encounter Care Teams Project Engineer Chemicals Relationship Specialty Start Date End Date Maricarmen Prescott MD PCP - General 02/01/07 09/07/21 Beti Carrion MD [address] [place] [address] PCP - General Internal Medicine 10/04/21 11/20/22 Johan Griffin [address] [place] [address] PCP - General Internal Medicine 09/08/21 10/03/21 Ayesha Marroquin PA-C [address] [place] [address] PCP - General Internal Medicine 12/29/22 Geoffrey Lynn MD Specialist Cardiovascular Disease 10/20/20 Beatriz Talbot NP Specialist Cardiology 10/20/20 12/27/22 Nita Gutierrez NP [address] [place] [address] Cardiology 12/28/22 documented as of this encounter
--- OUTSIDE RECORDS SUMMARY | 2024-06-19 16:14 | XMS_ITS | Encounter Summary ---
Author Organization [facility] Address [address] [place] [address] Care Team Providers Care Warehouse And Receiving Supervisor Name Role Phone Maricarmen Prescott MD Primary Care Provider Unava Geoffrey Guardado MD Unavailable Beatriz Talbot NP Unavailable Unavailab Beti Patrick MD Primary Care Provider [phone] Johan Griffin Primary Care Provider [phone] Nita Gutierrez FARM TECHNICIAN Unavailable [phone] Ayesha Marroquin PA-C Primary Care Provider Unavail able Encounter Details Date Type Department Care Team Description 06/25/2021 [facility] Medical Records [address] [place] [address] [place] Social History Tobacco Use Types Packs/Day Years [...] on filedocumented in this encounter Care Teams Warehouse And Receiving Supervisor Relationship Specialty Start Date End Date Maricarmen Prescott MD PCP - General 02/01/07 09/07/21 Beti Carrion MD [address] [place] [address] PCP - General Internal Medicine 10/04/21 11/20/22 Johan Griffin [address] [place] [address] PCP - General Internal Medicine 09/08/21 10/03/21 Ayesha Marroquin PA-C [address] [place] [address] PCP - General Internal Medicine 12/29/22 Geoffrey Lynn MD Specialist Cardiovascular Disease 10/20/20 Beatriz Talbot NP Specialist Cardiology 10/20/20 12/27/22 Nita Gutierrez NP [address] [place] [address] Cardiology 12/28/22 documented as of this encounter
--- OUTSIDE RECORDS SUMMARY | 2024-06-19 16:14 | XMS_ITS | Encounter Summary ---
Author Organization [facility] Address [address] [place] [address] Care Team Providers Care Strapper Name Role Phone Maricarmen Prescott MD Primary Care Provider Unava Geoffrey uGardado MD Unavailable Beatriz Talbot NP Unavailable Unavailab Beti Patrick MD Primary Care Provider [phone] Johan Griffin Primary Care Provider [phone] Nita Gutierrez NP Unavailable [phone] Ayesha Marroquin PA-C Primary Care Provider Unavail able Reason for Visit * Reason Onset Date Comments injection 04/03/2017 Encounter Details Date Type Department Care Team Description 04/03/2017 Telephone Physiatry - [address] [address] Jhonny Grayson DO injection Social History Tobacco Use Types Packs/Day Years [...] encounter Miscellaneous Notes * Telephone Encounter - Lulu Augustin L.P.N. - 04/03/2017 11:40 AM EST Order for lumbar injection Set up documented in this encounter Plan of Treatment Not on file documented as of this encounter Visit Diagnoses Diagnosis Lumbar radiculitis- Primary Thoracic or lumbosacral neuritis or radiculitis, unspecified documented in this encounter Care Teams Strapper Relationship Specialty Start Date End Date Maricarmen Prescott MD PCP - General 02/01/07 09/07/21 Beti Carrion MD [address] [place] [address] PCP - General Internal Medicine 10/04/21 11/20/22 Johan Griffin [address] [place] [address] PCP - General Internal Medicine 09/08/21 10/03/21 Ayesha Marroquin PA-C [address] [place] [address] PCP - General Internal Medicine 12/29/22 Geoffrey Lynn MD Specialist Cardiovascular Disease 10/20/20 Beatriz Talbot NP Specialist Cardiology 10/20/20 12/27/22 Nita Gutierrez NP [address] [place] [address] Cardiology 12/28/22 documented as of this encounter
--- OUTSIDE RECORDS SUMMARY | 2024-06-19 16:14 | XMS_ITS | Encounter Summary ---
Author Organization [facility] Address [address] [place] [address] Care Team Providers Care Advertising Statistical Clerk Name Role Phone Maricarmen Prescott MD Primary Care Provider Unava ilGeoffrey Hall MD Unavailable Beatriz Talbot NP Unavailable Unavailab Beti Patrick MD Primary Care Provider [phone] Johan Griffin Primary Care Provider [phone] Nita Gutierrez NP Unavailable [phone] Ayesha Marroquin PA-C Primary Care Provider Unavail able Encounter Details Date Type Department Care Team Description 02/23/2021 Orders Only Medical Records [address] [place] [address] Genny Grossman MD Social History Tobacco Use [...] on filedocumented in this encounter Care Teams Advertising Statistical Clerk Relationship Specialty Start Date End Date Maricarmen Prescott MD PCP - General 02/01/07 09/07/21 Beti Carrion MD [address] [place] [address] PCP - General Internal Medicine 10/04/21 11/20/22 Johan Griffin [address] [place] [address] PCP - General Internal Medicine 09/08/21 10/03/21 Ayesha Marroquin PA-C [address] [place] [address] PCP - General Internal Medicine 12/29/22 Geoffrey Lynn MD Specialist Cardiovascular Disease 10/20/20 Beatriz Talbot NP Specialist Cardiology 10/20/20 12/27/22 Nita Gutierrez NP [address] [place] [address] Cardiology 12/28/22 documented as of this encounter
--- OUTSIDE RECORDS SUMMARY | 2024-06-19 16:14 | XMS_ITS | Encounter Summary ---
Author Organization [facility] Address [address] [place] [address] Care Team Providers Care Broom Handle Dipper Name Role Phone Maricarmen Prescott MD Primary Care Provider Unava Geoffrey Guardado MD Unavailable Beatriz Talbot WEARING APPAREL SHAKER Unavailable Unavailab Beti Patrick MD Primary Care Provider [phone] Johan Griffin Primary Care Provider [phone] Nita Gutierrez WEARING APPAREL SHAKER Unavailable [phone] Ayesha Marroquin PA-C Primary Care Provider Unavail able Encounter Details Date Type Department Care Team Description 12/02/2010 Director Erp Report Medical Records [address] [place] [address] Omar Stevens MD Social History Tobacco Use [...] on filedocumented in this encounter Care Teams Broom Handle Dipper Relationship Specialty Start Date End Date Maricarmen Prescott MD PCP - General 02/01/07 09/07/21 Beti Carrion MD [address] [place] [address] PCP - General Internal Medicine 10/04/21 11/20/22 Johan Griffin [address] [place] [address] PCP - General Internal Medicine 09/08/21 10/03/21 Ayesha Marroquin PA-C [address] [place] [address] PCP - General Internal Medicine 12/29/22 Geoffrey Lynn MD Specialist Cardiovascular Disease 10/20/20 Beatriz Talbot NP Specialist Cardiology 10/20/20 12/27/22 Nita Gutierrez NP [address] [place] [address] Cardiology 12/28/22 documented as of this encounter
--- OUTSIDE RECORDS SUMMARY | 2024-06-19 16:15 | XMS_ITS | Encounter Summary ---
Author Organization [facility] Address [address] [place] [address] Care Team Providers Care Repair Manager Name Role Phone Geoffrey Lynn MD Unavailable Beatriz Talbot NP Unavailable Unavailab Beti Patrick MD Primary Care Provider [phone] Nita Gutierrez NP Unavailable [phone] Ayesha Marroquin PA-C Primary Care Provider Unavail able Reason for Visit * Reason Comments E-prescribe Rx Request Encounter Details Date Type Department Care Team Description 11/11/2022 Refill Adult Medicine [address] [address] Star Davenport, CRIME SCENE PHOTOGRAPHER [address] [place] [address] [phone] E-prescribe Rx Request Social History Tobacco Use [...] on filedocumented in this encounter Care Teams Repair Manager Relationship Specialty Start Date End Date Beti Carrion MD [address] [place] [address] PCP - General Internal Medicine 10/04/21 11/20/22 Ayesha Marroquin PA-C [address] [place] [address] PCP - General Internal Medicine 12/29/22 Geoffrey Lynn MD Specialist Cardiovascular Disease 10/20/20 Beatriz Talbot NP Specialist Cardiology 10/20/20 12/27/22 Nita Gutierrez NP [address] [place] [address] Cardiology 12/28/22 documented as of this encounter
--- OUTSIDE RECORDS SUMMARY | 2024-06-19 16:15 | XMS_ITS | Encounter Summary ---
Author Organization [facility] Address [address] [place] [address] Care Team Providers Care Paradi Operator Name Role Phone Geoffrey Lynn MD Unavailable Beatriz Talbot NP Unavailable Unavailab Beti Patrick MD Primary Care Provider [phone] Nita Gutierrez SUPERVISOR CLAM BED Unavailable [phone] Ayesha Marroquin PA-C Primary Care Provider Unavail able Encounter Details Date Type Department Care Team Description 03/04/2022 Orders Only Radiology - [address] [address] Beti Carrion MD [address] [place] [address] Social History Tobacco Use Types Packs/Day Years [...] on filedocumented in this encounter Care Teams Paradi Operator Relationship Specialty Start Date End Date Btei Carrion MD [address] [place] [address] PCP - General Internal Medicine 10/04/21 11/20/22 Ayesha Marroquin PA-C [address] [place] [address] PCP - General Internal Medicine 12/29/22 Geoffrey Lynn MD Specialist Cardiovascular Disease 10/20/20 Beatriz Talbot NP Specialist Cardiology 10/20/20 12/27/22 Nita Gutierrez NP [address] [place] [address] Cardiology 12/28/22 documented as of this encounter
--- OUTSIDE RECORDS SUMMARY | 2024-06-19 16:15 | XMS_ITS | Encounter Summary ---
Author Organization [facility] Address [address] [place] [address] Care Team Providers Care Obiee Obia Solution Architect Name Role Phone Geoffrey Lynn MD Unavailable Beatriz Talbot FRAME REPAIRER Unavailable Unavailab Nita Parks FRAME REPAIRER Unavailable [phone] Ayesha Marroquin PA-C Primary Care Provider Unavail able Reason for Visit * Reason Comments E-prescribe Rx Request Encounter Details Date Type Department Care Team Description 12/07/2022 Refill Gastroenterology - [address] [place] [address] Genny Grossman MD E-prescribe Rx Request Social [...] encounter Miscellaneous Notes * Telephone Encounter - Monica Moore C.M.A. - 12/07/2022 1:17 PM EDT POP - 08/24/2022 Nov - unknown Est Dr. K[place]k Patient documented in this encounter Plan of Treatment Not on file documented as of this encounter Visit Diagnoses Not on filedocumented in this encounter Care Teams Obiee Obia Solution Architect Relationship Specialty Start Date End Date Ayesha Marroquin PA-C PCP - General Internal Medicine 12/29/22 Geoffrey Lynn MD Specialist Cardiovascular Disease 10/20/20 Beatriz Talbot NP Specialist Cardiology 10/20/20 12/27/22 Nita Gutierrez NP Cardiology 12/28/22 documented as of this encounter
--- OUTSIDE RECORDS SUMMARY | 2024-06-19 16:15 | XMS_ITS | Encounter Summary ---
Author Organization [facility] Address [address] [place] [address] Care Team Providers Care Asphalt Coater Name Role Phone Geoffrey Lynn MD Unavailable Beatriz Talbot NP Unavailable Unavailab Beti Patrick MD Primary Care Provider [phone] Nita Gutierrez NP Unavailable [phone] Ayesha Marroquin PA-C Primary Care Provider Unavail able Encounter Details Date Type Department Care Team Description 03/04/2022 Orders Only Radiology - [address] [address] Beti Carrion MD [address] [place] [address] Visit for screening mammogram Social History Tobacco [...] mammogram documented in this encounter Care Teams Asphalt Coater Relationship Specialty Start Date End Date Beti Carrion MD [address] [place] [address] PCP - General Internal Medicine 10/04/21 11/20/22 Ayesha Marroquin PA-C [address] [place] [address] PCP - General Internal Medicine 12/29/22 Geoffrey Lynn MD Specialist Cardiovascular Disease 10/20/20 Beatriz Talbot NP Specialist Cardiology 10/20/20 12/27/22 Nita Gutierrez NP [address] [place] [address] Cardiology 12/28/22 documented as of this encounter
--- OUTSIDE RECORDS SUMMARY | 2024-06-19 16:15 | XMS_ITS | Encounter Summary ---
Author Organization [facility] Address [address] [place] [address] Care Team Providers Care Financial Management Consultant Name Role Phone Geoffrey Lynn MD Unavailable Beatriz Talbot NP Unavailable Unavailab Beti Patrick MD Primary Care Provider [phone] Nita Gutierrez MEDICAL EDUCATION SPECIALIST Unavailable [phone] Ayesha Marroquin PA-C Primary Care Provider Unavail able Encounter Details Date Type Department Care Team Description 09/30/2022 Manager Statistical Programming Report Medical Records [address] [place] [address] Ayesha Marroquin PA-C Social History Tobacco Use [...] on filedocumented in this encounter Care Teams Financial Management Consultant Relationship Specialty Start Date End Date Beti Carrion MD [address] [place] [address] [phone] PCP - General Internal Medicine 10/04/21 11/20/22 Ayesha Marroquin PA-C [address] [place] [address] PCP - General Internal Medicine 12/29/22 Geoffrey Lynn MD Specialist Cardiovascular Disease 10/20/20 Beatriz Talbot NP Specialist Cardiology 10/20/20 12/27/22 Nita Gutierrez NP [address] [place] [address] Cardiology 12/28/22 documented as of this encounter
--- OUTSIDE RECORDS SUMMARY | 2024-06-19 16:15 | XMS_ITS | Encounter Summary ---
Author Organization [facility] Address [address] [place] [address] Care Team Providers Care Box Gluer Name Role Phone Maricarmen Prescott MD Primary Care Provider Unava Geoffrey Guardado MD Unavailable Beatriz Talbot NP Unavailable Unavailab Beti Patrick MD Primary Care Provider [phone] Johan Griffin Primary Care Provider [phone] Nita Gutierrez NP Unavailable [phone] Ayesha Marroquin PA-C Primary Care Provider Unavail able Encounter Details Date Type Department Care Team Description 08/02/2017 PNO Controlled Substance Contract Medical Records [address] [place] [address] Abstract, Provider Social History Tobacco Use Types [...] on filedocumented in this encounter Care Teams Box Gluer Relationship Specialty Start Date End Date Maricarmen Prescott MD PCP - General 02/01/07 09/07/21 Beti Carrion MD [address] [place] [address] PCP - General Internal Medicine 10/04/21 11/20/22 Johan Griffin [address] [place], [place] [phone] PCP - General Internal Medicine 09/08/21 10/03/21 Ayesha Marroquin PA-C [address] [place] [address] PCP - General Internal Medicine 12/29/22 Geoffrey Lynn MD Specialist Cardiovascular Disease 10/20/20 Beatriz Talbot NP Specialist Cardiology 10/20/20 12/27/22 Nita Gutierrez NP [address] [place] [address] Cardiology 12/28/22 documented as of this encounter
--- OUTSIDE RECORDS SUMMARY | 2024-06-19 16:15 | XMS_ITS | Encounter Summary ---
Author Organization [facility] Address [address] [place] [address] Care Team Providers Care Mobile Sales Consultant Name Role Phone Maricarmen Prescott MD Primary Care Provider Unava ilGeoffrey Hall MD Unavailable Beatriz Talbot NP Unavailable Unavailab Beti Patrick MD Primary Care Provider [phone] Johan Griffin Primary Care Provider [phone] Nita Gutierrez RAIL CAR OPERATOR Unavailable [phone] Ayesha Marroquin PA-C Primary Care Provider Unavail able Reason for Visit * Reason Onset Date Comments Faxed Refill 01/10/2020 Encounter Details Date Type Department Care Team Description 01/10/2020 Refill Medicine/Pediatrics - [address] [address] Maricarmen Prescott MD Faxed Refill Social History [...] / Plan[place] / Product Type: MEDICARE [id number] documented in this encounter Plan of Treatment Not on file documented as of this encounter Visit Diagnoses Diagnosis Essential hypertension Unspecified essential hypertension documented in this encounter Care Teams Mobile Sales Consultant Relationship Specialty Start Date End Date Maricarmen Prescott MD PCP - General 02/01/07 09/07/21 Beti Carrion MD [address] [place] [address] [phone] PCP - General Internal Medicine 10/04/21 11/20/22 Johan Griffin [address] [place] [address] PCP - General Internal Medicine 09/08/21 10/03/21 Ayesha Marroquin PA-C [address] [place] [address] PCP - General Internal Medicine 12/29/22 Geoffrey Lynn MD Specialist Cardiovascular Disease 10/20/20 Beatriz Talbot NP Specialist Cardiology 10/20/20 12/27/22 Nita Gutierrez NP [address] [place] [address] Cardiology 12/28/22 documented as of this encounter
--- OUTSIDE RECORDS SUMMARY | 2024-06-19 16:15 | XMS_ITS | Encounter Summary ---
Author Organization [facility] Address [address] [place] [address] Care Team Providers Care Side Splitter Name Role Phone Maricarmen Prescott MD Primary Care Provider Unava Geoffrey Guardado MD Unavailable Beatriz Talbot NP Unavailable Unavailab Beti Patrick MD Primary Care Provider [phone] Johan Griffin Primary Care Provider [phone] Nita Gutierrez NP Unavailable [phone] Ayesha Marroquin PA-C Primary Care Provider Unavail able Encounter Details Date Type Department Care Team Description 07/10/2019 Orders Only Medical Records [address] [place] [address] Brittani Casas MD Social History Tobacco Use [...] on filedocumented in this encounter Care Teams Side Splitter Relationship Specialty Start Date End Date Maricarmen Prescott MD PCP - General 02/01/07 09/07/21 Beti Carrion MD [address] [place] [address] [phone] PCP - General Internal Medicine 10/04/21 11/20/22 Johan Griffin [address] [place] [address] [phone] PCP - General Internal Medicine 09/08/21 10/03/21 Ayesha Marroquin PA-C [address] [place] [address] PCP - General Internal Medicine 12/29/22 Geoffrey Lynn MD Specialist Cardiovascular Disease 10/20/20 Beatriz Talbot NP Specialist Cardiology 10/20/20 12/27/22 Nita Gutierrez NP [address] [place] [address] Cardiology 12/28/22 documented as of this encounter
--- OUTSIDE RECORDS SUMMARY | 2024-06-19 16:15 | XMS_ITS | Encounter Summary ---
Author Organization [facility] Address [address] [place] [address] Care Team Providers Care Rehabilitation Specialist Name Role Phone Geoffrey Lynn MD Unavailable Beatriz Talbot NP Unavailable Unavailab Beti Patrick MD Primary Care Provider [phone] Nita Gutierrez ACCOUNTANT ASSISTANT Unavailable [phone] Ayesha Marroquin PA-C Primary Care Provider Unavail able Encounter Details Date Type Department Care Team Description 08/01/2022 Healthcare Network Pricing Consultant Report Medical Records [address] [place] [address] Ayesha Marroquin PA-C Social History Tobacco Use [...] on filedocumented in this encounter Care Teams Rehabilitation Specialist Relationship Specialty Start Date End Date Beti Carrion MD [address] [place] [address] [phone] PCP - General Internal Medicine 10/04/21 11/20/22 Ayesha Marroquin PA-C [address] [place] [address] PCP - General Internal Medicine 12/29/22 Geoffrey Lynn MD Specialist Cardiovascular Disease 10/20/20 Beatriz Talbot NP Specialist Cardiology 10/20/20 12/27/22 Nita Gutierrez NP [address] [place] [address] Cardiology 12/28/22 documented as of this encounter
--- OUTSIDE RECORDS SUMMARY | 2024-06-19 16:15 | XMS_ITS | Encounter Summary ---
Author Organization [facility] Address [address] [place] [address] Care Team Providers Care Telegraph Repeater Mechanic Name Role Phone Maricarmen Prescott MD Primary Care Provider Unava Geoffrey Guardado MD Unavailable Beatriz Talbot NP Unavailable Unavailab Beti Patrick MD Primary Care Provider [phone] Johan Griffin Primary Care Provider [phone] Nita Gutierrez FINANCIAL WRITER Unavailable [phone] Ayesha Marroquin PA-C Primary Care Provider Unavail able Encounter Details Date Type Department Care Team Description 05/14/2020 Photographer Portrait Report Medical Records [address] [place] [address] Kristi Contreras MD Social History Tobacco Use [...] on filedocumented in this encounter Care Teams Telegraph Repeater Mechanic Relationship Specialty Start Date End Date Maricarmen Prescott MD PCP - General 02/01/07 09/07/21 Beti Carrion MD [address] [place] [address] PCP - General Internal Medicine 10/04/21 11/20/22 Johan Griffin [address] [place] [address] PCP - General Internal Medicine 09/08/21 10/03/21 Ayesha Marroquin PA-C [address] [place] [address] PCP - General Internal Medicine 12/29/22 Geoffrey Lynn MD Specialist Cardiovascular Disease 10/20/20 Beatriz Talbot NP Specialist Cardiology 10/20/20 12/27/22 Nita Gutierrez NP [address] [place] [address] Cardiology 12/28/22 documented as of this encounter
--- OUTSIDE RECORDS SUMMARY | 2024-06-19 16:15 | XMS_ITS | Encounter Summary ---
Author Organization [facility] Address [address] [place] [address] Care Team Providers Care Certified Social Workers In Health Care Name Role Phone Geoffrey Lynn MD Unavailable Beatriz Talbot NP Unavailable Unavailab Beti Patrick MD Primary Care Provider [phone] Nita Gutierrez CUFF TURNER Unavailable [phone] Ayesha Marroquin PA-C Primary Care Provider Unavail able Reason for Visit * Reason Onset Date Comments other 02/10/2022 Sore on rectum Encounter Details Date Type Department Care Team Description 02/10/2022 Telephone Adult Medicine [address] [phone] Beti Carrion MD [address] [place] [address] [phone] other (Sore on rectum ) Social History Tobacco Use Types Packs/Day [...] encounter Miscellaneous Notes * Telephone Encounter - Magi Velasco R.N. - 02/10/2022 10:50 AM EST No appointment available and pt is advised to go to an urgent care , she understands and agrees * Telephone Encounter - Paige Mc - 02/10/2022 10:13 AM EST Symptoms patient is presenting: patient has a sore on her rectum. She missed her appt for 02/10/22 10:00am and would like to be rescheduled For ALL patients calling to schedule any [...] traveled recently to another state outside of [place], [place], [place], [place], [place], [place], [place]? NO o If yes, did you quarantine [...] How long has patient had these symptoms?: PCP: Beti Carrion Pay[place] / Plan[place] / Product Type: MEDICARE [id number] documented in this encounter Plan of Treatment Not on file documented as of this encounter Visit Diagnoses Not on filedocumented in this encounter Care Teams Certified Social Workers In Health Care Relationship Specialty Start Date End Date Beti Carrion MD [address] [place] [address] PCP - General Internal Medicine 10/04/21 11/20/22 Ayesha Marroquin PA-C [address] [place] [address] PCP - General Internal Medicine 12/29/22 Geoffrey Lynn MD Specialist Cardiovascular Disease 10/20/20 Beatriz Talbot NP Specialist Cardiology 10/20/20 12/27/22 Nita Gutierrez NP [address] [place] [address] Cardiology 12/28/22 documented as of this encounter
--- OUTSIDE RECORDS SUMMARY | 2024-06-19 16:15 | XMS_ITS | Encounter Summary ---
Author Organization [facility] Address [address] [place] [address] Care Team Providers Care Warehouse Delivery Manager Name Role Phone Maricarmen Prescott MD Primary Care Provider Unava ilable Geoffrey Lynn MD Unavailable Beatriz Talbot NP Unavailable Unavailab Beti Patrick MD Primary Care Provider [phone] Johan Griffin Primary Care Provider [phone] Nita Gutierrez NP Unavailable [phone] Ayesha Marroquin PA-C Primary Care Provider Unavail able Encounter Details Date Type Department Care Team Description 06/10/2019 Sling Operator Report Medical Records [address] [place] [address] Geoffrey Lynn MD [address] [place] [address] [phone] Social History Tobacco Use Types Packs/Day Years [...] filedocumented in this encounter Care Teams Warehouse Delivery Manager Relationship Specialty Start Date End Date Maricarmen Prescott MD PCP - General 02/01/07 09/07/21 Beti Carrion MD [address] [place] [address] PCP - General Internal Medicine 10/04/21 11/20/22 Johan Griffin [address] [place] [address] PCP - General Internal Medicine 09/08/21 10/03/21 Ayesha Marroquin PA-C [address] [place] [address] PCP - General Internal Medicine 12/29/22 Geoffrey Lynn MD Specialist Cardiovascular Disease 10/20/20 Beatriz Talbot NP Specialist Cardiology 10/20/20 12/27/22 Nita Gutierrez NP [address] [place] [address] Cardiology 12/28/22 documented as of this encounter
--- OUTSIDE RECORDS SUMMARY | 2024-06-19 16:15 | XMS_ITS | Encounter Summary ---
Author Organization [facility] Address [address] [place] [address] Care Team Providers Care Block Hand Name Role Phone Maricarmen Prescott MD Primary Care Provider Unava ilGeoffrey Hall MD Unavailable Beatriz Talbot NP Unavailable Unavailab Beti Patrick MD Primary Care Provider [phone] Johan Griffin Primary Care Provider [phone] Nita Gutierrez INTERVENTIONAL PHYSICIAN Unavailable [phone] Ayesha Marroquin PA-C Primary Care Provider Unavail able Reason for Visit * Reason Onset Date Comments Medication 05/21/2019 Encounter Details Date Type Department Care Team Description 05/21/2019 Telephone Medicine/Pediatrics - [address] [phone] Maricarmen Prescott MD Medication Social History Tobacco Use Types Packs/Day Years [...] Miscellaneous Notes * Telephone Encounter - Nita Orellana L.P.N. - 05/22/2019 2:47 PM EDT Pt notified as written below * Telephone Encounter - Maricarmen Prescott MD - 05/22/2019 2:32 PM EDT I will refill early and increase the quantity for 1 prescription. * Telephone Encounter - Brenda Calle R.N. - 05/21/2019 3:16 PM EDT Please see office visit from 05/13, would you please advise on anxiety medication? * Telephone Encounter - Iliana Grewal - 05/21/2019 1:22 PM EDT Patient calling in stating that she spoke to Dr Kevin on 05/14/19 for a hosp visit. They had discussed giving her extra lorazepam (ATIVAN) 1 MG tablet, due to increased anxiety with everything goingon and the hospital stay and outcome. SHe states Dr Kevin was going to ask Dr Prescott. Please advise documented in this encounter Plan of Treatment Not on file documented as of this encounter Visit Diagnoses Not on filedocumented in this encounter Care Teams Block Hand Relationship Specialty Start Date End Date Maricarmen Prescott MD PCP - General 02/01/07 09/07/21 Beti Carrion MD [address] [place] [address] PCP - General Internal Medicine 10/04/21 11/20/22 Johan Griffin [address] [place] [address] [id number] PCP - General Internal Medicine 09/08/21 10/03/21 Ayesha Marroquin PA-C [address] [place] [address] PCP - General Internal Medicine 12/29/22 Geoffrey Lynn MD Specialist Cardiovascular Disease 10/20/20 Beatriz Talbot NP Specialist Cardiology 10/20/20 12/27/22 Nita Gutierrez NP [address] [place] [address] Cardiology 12/28/22 documented as of this encounter
--- OUTSIDE RECORDS SUMMARY | 2024-06-19 16:15 | XMS_ITS | Encounter Summary ---
Author Organization [facility] Address [address] [place] [address] Care Team Providers Care Bottoming Room Inspector Name Role Phone Maricarmen Prescott MD Primary Care Provider Unava Geoffrey Guardado MD Unavailable Beatriz Talbot NP Unavailable Unavailab Beti Patrick MD Primary Care Provider [phone] Johan Griffin Primary Care Provider [phone] Nita Gutierrez NP Unavailable [phone] Ayesha Marroquin PA-C Primary Care Provider Unavail able Encounter Details Date Type Department Care Team Description 05/18/2020 Business Doc Medical Records [address] [place] [address] Abstract, Provider Social History Tobacco Use Types [...] on filedocumented in this encounter Care Teams Bottoming Room Inspector Relationship Specialty Start Date End Date Maricarmen Prescott MD PCP - General 02/01/07 09/07/21 Beti Carrion MD [address] [place] [address] PCP - General Internal Medicine 10/04/21 11/20/22 Johan Griffin [address] [place] [address] PCP - General Internal Medicine 09/08/21 10/03/21 Ayesha Marroquin PA-C [address] [place] [address] PCP - General Internal Medicine 12/29/22 Geoffrey Lynn MD Specialist Cardiovascular Disease 10/20/20 Beatriz Talbot NP Specialist Cardiology 10/20/20 12/27/22 Nita Gutierrez NP [address] [place] [address] Cardiology 12/28/22 documented as of this encounter
--- OUTSIDE RECORDS SUMMARY | 2024-06-19 16:15 | XMS_ITS | Encounter Summary ---
Author Organization [facility] Address [address] [place] [address] Care Team Providers Care Alumni Relations Officer Name Role Phone Geoffrey Lynn MD Unavailable Beatriz Talbot NP Unavailable Unavailab Beti Patrick MD Primary Care Provider [phone] Nita Gutierrez NP Unavailable [phone] Ayesha Marroquin PA-C Primary Care Provider Unavail able Encounter Details Date Type Department Care Team Description 08/16/2022 [facility] Medical Records [address] [place] [address] Ayesha Marroquin PA-C Social History Tobacco Use [...] on filedocumented in this encounter Care Teams Alumni Relations Officer Relationship Specialty Start Date End Date Beti Carrion MD [address] [place] [address] PCP - General Internal Medicine 10/04/21 11/20/22 Ayesha Marroquin PA-C [address] [place] [address] PCP - General Internal Medicine 12/29/22 Geoffrey Lynn MD Specialist Cardiovascular Disease 10/20/20 Beatriz Talbot NP Specialist Cardiology 10/20/20 12/27/22 Nita Gutierrez NP [address] [place] [address] Cardiology 12/28/22 documented as of this encounter
== END 2024-06-19 14:26 | disposition home or self-care (01) ==
LOC: HO.HMCFM 13:37
PROVIDERS: PCP Physician Assistant; Visit Provider Physician Assistant
DX: E21.3 Hyperparathyroidism, unspecified (principal); F33.1 Major depressive disorder, recurrent, moderate; F41.1 Generalized anxiety disorder; E78.2 Mixed hyperlipidemia; I10 Essential (primary) hypertension

== ENCOUNTER → 2024-06-19 13:36 | Outpatient (BNVA) | payer MEDICARE, MEDICAID, SELFPAY | PROVIDERS: PCP Physician Assistant; Visit Provider Physician Assistant | DX: E21.3 Hyperparathyroidism, unspecified (principal); F33.1 Major depressive disorder, recurrent, moderate; F41.1 Generalized anxiety disorder; E78.2 Mixed hyperlipidemia; I10 Essential (primary) hypertension | CPT/HCPCS: 96127; 99212 ==

== ENCOUNTER 2024-07-04 15:43 | Outpatient (REF) | payer MEDICARE, MEDICAID, SELFPAY ==
--- NOTE | ~2024-07-04 | XR_ITS ---
EXAMINATION: XR TIBIA FIBULA 2 VIEWS LEFT HISTORY: S80.12XA - Contusion of left lower leg, initial encounter COMPARISON: There are no prior studies available for comparison. FINDINGS: AP and lateral views of the left tibia and fibula are submitted. Osseous mineralization is normal. There is no fracture or dislocation. A left total knee prosthesis is noted. The visualized portion of the left ankle joint is maintained. The soft tissues are unremarkable. XR/XR tibia fibula LT 2V IMPRESSION: No evidence of fracture of the left tibia or fibula. Electronically signed by: Johnathan Pandey MD 07/05/2024 08:16 AM EDT
--- NOTE | ~2024-07-04 | XR_ITS ---
EXAMINATION: XR HUMERUS, LEFT CLINICAL INFORMATION: S40.022A - Contusion of left upper arm, initial encounter COMPARISON: None available. TECHNIQUE: AP and lateral views of the left humerus. FINDINGS: There is mild osteopenia. There is no fracture, dislocation, or suspicious bone lesion. There are arthritic changes in the elbow joint and shoulder joint. There is no soft tissue abnormality. XR/XR humerus LT IMPRESSION: No acute bony abnormalities. Electronically signed by: Reese Mathur MD 07/04/2024 04:43 PM EDT
== END 2024-07-04 15:44 | disposition home or self-care (01) ==
LOC: HO.HMGCX 15:43
PROVIDERS: PCP Physician Assistant; Visit Provider Nurse Practitioner Family
DX: S40.022A Contusion of left upper arm, initial encounter (principal); S80.12XA Contusion of left lower leg, initial encounter
CPT/HCPCS: 73060; 73590; 99212

== ENCOUNTER 2024-07-04 15:43 | Outpatient (AMB) | payer MEDICARE, MEDICAID, SELFPAY ==
--- NOTE | 2024-07-04 15:52 | AM.OFFWIN_ITS ---
Intake Vital Signs 07/04/24 16:04 Weight 195 lb 6 oz BP 120/80 Blood Pressure Location Rt brachial Position Sitting Pulse 72 Pulse Source Pulse Oximeter Pulse Oximetry (%) 97 Oxygen Delivery Method Room Air Intake Visit Reasons: EP Fall, lt adame pain, arm pain Intake Note: Patient here for left arm pain after a fall that happened around Easter time. Patient Tobacco Use Status: Former Tobacco user Allergies codeine Allergy (Intermediate, Verified 07/04/24 16:05) headache duloxetine [From Cymbalta] Allergy (Mild, Verified 07/04/24 16:05) Itching Do you need a note to return to daycare/school/sports/work: No HPI HPI Comments History of Present Illness Details 79 y/o Female patient who presents to [facility] walk in clinic with c/o left arm pain after a fall that happened around Easter time. Reports pain is located Left Deltoid region and left lower leg Adame. Reports tenderness with Palpation. Reports Limited ROM due to Pain. She has been using NSAIDs with minimal relief. [facility] Medical History (Updated 07/04/24 @ 17:30 by Paige Johnson NP) Contusion of left arm Contusion of left lower extremity Insomnia Chronic fatigue IBS (irritable bowel syndrome) GERD (gastroesophageal reflux disease) Osteoporosis Fibromyalgia Depression, major, recurrent, moderate Generalized anxiety disorder CAD (coronary artery disease) Hyperlipidemia HTN (hypertension), benign Diverticulitis FHx: total knee replacement Surgical History S/P hip replacement H/O shoulder replacement Social History (Updated 06/19/24 @ 14:44 by Lorenza Doran CMA) Housing: Other Housing Other:: Mobile home Alcohol intake: current Patient Tobacco Use Status: Former Tobacco user Tobacco use type: Cigarette Years Smoked: 16 years total. Smoked socially. quit 25 years ago e-Cigarette/Vaping Use: Never Used Second Hand Smoke Exposure: Yes service: No Current occupational status: retired Cognitive needs: No Hearing needs: No Vision needs: No Review of Systems Const All systems reviewed & are unremarkable except as noted in HPI and below Physical Exam Vital Signs: Last Vital Signs Pulse 72 07/04/24 16:04 BP 120/80 07/04/24 16:04 Pulse Ox 97 07/04/24 16:04 Oxygen Delivery Method Room Air 07/04/24 16:04 Const General: no acute distress; No comfortable Nutritional Appearance: obese Orientation/consciousness: patient oriented x3 Neuro General: patient oriented x3, gait normal and moves all extremities Extrem Left upper extremity: shoulder/upper arm Details: inspection abnormal, tenderness Location: of the mid-shaft humerus and over the deltoid bursa and abnormal ROM Details: pain with active ROM and pain with passive ROM; no swelling, no ecchymosis, no crepitus and no deformity Left lower extremity: lower leg Details: normal to inspection, tenderness Location: of the midshaft tibia and of the midshaft fibula and no edema; no erythema, no ecchymosis and no crepitus Psych Speech and movement: Normal speech and movement present Assessment & Plan Assessment & Plan (1) Contusion of left lower extremity: Code(s): S80.12XA - Contusion of left lower leg, initial encounter Qualifiers: Encounter type: initial encounter Qualified Code(s): S80.12XA - Contusion of left lower leg, initial encounter Plan: Ordered Xray as requested by Patient, low suspicious for Fracture. Probably muscular strain, ordered Flexeril. Ordered Voltaren NSAIDs and Acetaminophen for pain relief. (2) Contusion of left arm: Code(s): S40.022A - Contusion of left upper arm, initial encounter Qualifiers: Encounter type: initial encounter Qualified Code(s): S40.022A - Contusion of left upper arm, initial encounter Plan: Ordered Xray as requested by Patient, low suspicious for Fracture. Probably muscular strain, ordered Flexeril. Ordered Voltaren NSAIDs and Acetaminophen for pain relief. Orders: Orders XR humerus LT Today S40.022A - Contusion of left upper arm, initial encounter XR tibia fibula LT 2V Today S80.12XA - Contusion of left lower leg, initial encounter Medications: New cyclobenzaprine 10 mg PO BEDTIME 20 tabs 0RF S40.022A - Contusion of left upper arm, initial encounter, S80.12XA - Contusion of left lower leg, initial encounter diclofenac sodium 1% (Voltaren Arthritis Pain) 2 grams topical BID 100 grams 0RF S40.022A - Contusion of left upper arm, initial encounter, S80.12XA - Contusion of left lower leg, initial encounter Coding Level of Care Code Est Pt Level 4 (24584) Diagnoses Contusion of left lower extremity, initial encounter S80.12XA Encounter type: initial encounter Contusion of left upper extremity, initial encounter S40.022A Encounter type: initial encounter Time Spent (min) 20
[2024-07-04 16:04] VITALS: BP 120/80; PULSE 72; O2SAT 97
--- OUTSIDE RECORDS SUMMARY | 2024-07-04 16:07 | XMS_ITS | Encounter Summary ---
Author Organization [facility] Address [address] [place] [address] Care Team Providers Care Ship Engineer Name Role Phone Maricarmen Prescott MD Primary Care Provider Unava Geoffrey Guardado MD Unavailable Beatriz Talbot NP Unavailable Unavailab Beti Patrick MD Primary Care Provider [phone] Johan Griffin Primary Care Provider [phone] Nita Gutierrez NP Unavailable [phone] Ayesha Marroquin PA-C Primary Care Provider Unavail able Encounter Details Date Type Department Care Team Description 11/19/2020 Director Of Learning Report Medical Records [address] [place] [address] Kristi Contreras MD Social History Tobacco Use [...] filedocumented in this encounter Care Teams Ship Engineer Relationship Specialty Start Date End Date Maricarmen Prescott MD PCP - General 02/01/07 09/07/21 Beti Carrion MD [address] [place] [address] PCP - General Internal Medicine 10/04/21 11/20/22 Johan Griffin [address] [place] [address] PCP - General Internal Medicine 09/08/21 10/03/21 Ayesha Marroquin PA-C [address] [place] [address] PCP - General Internal Medicine 12/29/22 Geoffrey Lynn MD Specialist Cardiovascular Disease 10/20/20 Beatriz Talbot NP Specialist Cardiology 10/20/20 12/27/22 Nita Gutierrez NP [address] [place] [address] Cardiology 12/28/22 documented as of this encounter
--- OUTSIDE RECORDS SUMMARY | 2024-07-04 16:07 | XMS_ITS | Encounter Summary ---
Author Organization [facility] Address [address] [place] [address] Care Team Providers Care Emissions Testing And Repair Technician Name Role Phone Maricarmen Prescott MD Primary Care Provider Unava Geoffrey Guardado MD Unavailable Beatriz Talbot FIRE EQUIPMENT OPERATOR Unavailable Unavailab Beti Patrick MD Primary Care Provider [phone] Johan Griffin Primary Care Provider [phone] Nita Gutierrez FIRE EQUIPMENT OPERATOR Unavailable [phone] Ayesha Marroquin PA-C Primary Care Provider Unavail able Encounter Details Date Type Department Care Team Description 02/11/2015 School Coordinator Report Medical Records [address] [place] [address] Connor Yang MD Social History Tobacco Use [...] on filedocumented in this encounter Care Teams Emissions Testing And Repair Technician Relationship Specialty Start Date End Date Maricarmen Prescott MD PCP - General 02/01/07 09/07/21 Beti Carrion MD [address] [place] [address] PCP - General Internal Medicine 10/04/21 11/20/22 Johan Griffin [address] [place] [address] PCP - General Internal Medicine 09/08/21 10/03/21 Ayesha Marroquin PA-C [address] [place] [address] PCP - General Internal Medicine 12/29/22 Geoffrey Lynn MD Specialist Cardiovascular Disease 10/20/20 Beatriz Talbot NP Specialist Cardiology 10/20/20 12/27/22 Nita Gutierrez NP [address] [place] [address] Cardiology 12/28/22 documented as of this encounter
--- OUTSIDE RECORDS SUMMARY | 2024-07-04 16:07 | XMS_ITS | Encounter Summary ---
Author Organization [facility] Address [address] [place] [address] Care Team Providers Care Combo Welder Name Role Phone Maricarmen Prescott MD Primary Care Provider Unava Geoffrey Guardado MD Unavailable Beatriz Talbot PARKING ATTENDANT Unavailable Unavailab Beti Patrick MD Primary Care Provider [phone] Johan Griffin Primary Care Provider [phone] Nita Gutierrez PARKING ATTENDANT Unavailable [phone] Ayesha Marroquin PA-C Primary Care Provider Unavail able Encounter Details Date Type Department Care Team Description 07/29/2015 Gift Shop Clerk Report Medical Records [address] [place] [address] Connor Yang MD Social History Tobacco Use [...] on filedocumented in this encounter Care Teams Combo Welder Relationship Specialty Start Date End Date Maricarmen Prescott MD PCP - General 02/01/07 09/07/21 Beti Carrion MD [address] [place] [address] PCP - General Internal Medicine 10/04/21 11/20/22 Johan Griffin [address] [place] [address] PCP - General Internal Medicine 09/08/21 10/03/21 Ayesha Marroquin PA-C [address] [place] [address] PCP - General Internal Medicine 12/29/22 Geoffrey Lynn MD Specialist Cardiovascular Disease 10/20/20 Beatriz Talbot NP Specialist Cardiology 10/20/20 12/27/22 Nita Gutierrez NP [address] [place] [address] Cardiology 12/28/22 documented as of this encounter
--- OUTSIDE RECORDS SUMMARY | 2024-07-04 16:07 | XMS_ITS | Encounter Summary ---
Author Organization [employer] [facility] Address [address] [place] [address] Care Team Providers Care Application Security Developer Name Role Phone Geoffrey Lynn MD Unavailable Nita Gutierrez NP Unavailable [phone] Ayesha Marroquin PA-C Primary Care Provider Unavail able Encounter Details Date Type Department Care Team Description 09/12/2023 Orders Only Cardio PVC POC [address] [facility] [address] [place] [address] Default, Provider Social History Tobacco Use Types [...] on filedocumented in this encounter Care Teams Application Security Developer Relationship Specialty Start Date End Date Ayesha Marroquin PA-C PCP - General Internal Medicine 11/2/23 Geoffrey Lynn MD Specialist Cardiovascular Disease 10/20/20 Nita Gutierrez NP Cardiology 12/28/22 documented as of this encounter
--- OUTSIDE RECORDS SUMMARY | 2024-07-04 16:07 | XMS_ITS | Encounter Summary ---
Author Organization [facility] Address [address] [place] [address] Care Team Providers Care Supervisor Engine Assembly Name Role Phone Maricarmen Prescott MD Primary Care Provider Unava Geoffrey Guardado MD Unavailable Beatriz Talbot NP Unavailable Unavailab Beti Patrick MD Primary Care Provider [phone] Johan Griffin Primary Care Provider [phone] Nita Gutierrez NP Unavailable [phone] Ayesha Marroquin PA-C Primary Care Provider Unavail able Encounter Details Date Type Department Care Team Description 01/30/2018 Soil Scientist Report Medical Records [address] [place] [address] Clay Meehan PA-C Social History Tobacco Use Types Packs/Day [...] filedocumented in this encounter Care Teams Supervisor Engine Assembly Relationship Specialty Start Date End Date Maricarmen Prescott MD PCP - General 02/01/07 09/07/21 Beti Carrion MD [address] [place] [address] PCP - General Internal Medicine 10/04/21 11/20/22 Johan Griffin [address] [place] [address] PCP - General Internal Medicine 09/08/21 10/03/21 Ayesha Marroquin PA-C [address] [place] [address] PCP - General Internal Medicine 12/29/22 Geoffrey Lynn MD Specialist Cardiovascular Disease 10/20/20 Beatriz Talbot NP Specialist Cardiology 10/20/20 12/27/22 Nita Gutierrez NP [address] [place] [address] Cardiology 12/28/22 documented as of this encounter
--- OUTSIDE RECORDS SUMMARY | 2024-07-04 16:07 | XMS_ITS | Encounter Summary ---
Author Organization [facility] Address [address] [place] [address] Care Team Providers Care Medical Staff Director Name Role Phone Maricarmen Prescott MD Primary Care Provider Unava Geoffrey Guardado MD Unavailable Beatriz Talbot NP Unavailable Unavailab Beti Patrick MD Primary Care Provider [phone] Johan Griffin Primary Care Provider [phone] Nita Gutierrez NP Unavailable [phone] Ayesha Marroquin PA-C Primary Care Provider Unavail able Encounter Details Date Type Department Care Team Description 02/09/2016 Business Doc Medical Records [address] [place] [address] Abstract, Provider Social History Tobacco Use Types [...] on filedocumented in this encounter Care Teams Medical Staff Director Relationship Specialty Start Date End Date Maricarmen Prescott MD PCP - General 02/01/07 09/07/21 Beti Carrion MD [address] [place] [address] PCP - General Internal Medicine 10/04/21 11/20/22 Johan Griffin [address] [place] [address] PCP - General Internal Medicine 09/08/21 10/03/21 Ayesha Marroquin PA-C [address] [place] [address] PCP - General Internal Medicine 12/29/22 Geoffrey Lynn MD Specialist Cardiovascular Disease 10/20/20 Beatriz Talbot NP Specialist Cardiology 10/20/20 12/27/22 Nita Gutierrez NP [address] [place] [address] Cardiology 12/28/22 documented as of this encounter
--- OUTSIDE RECORDS SUMMARY | 2024-07-04 16:07 | XMS_ITS | Encounter Summary ---
Author Organization [facility] Address [address] [place] [address] Care Team Providers Care Mechatronics Technologist Name Role Phone Maricarmen Prescott MD Primary Care Provider Unava Geoffrey Guardado MD Unavailable Beatriz Talbot NP Unavailable Unavailab Beti Patrick MD Primary Care Provider [phone] Johan Griffin Primary Care Provider Nita Gutierrez COPING MACHINE ASSEMBLER Unavailable [phone] Ayesha Marroquin PA-C Primary Care Provider Unavail able Encounter Details Date Type Department Care Team Description 04/03/2008 Bridge Rigger Report Medical Records [address] [place] [address] Sai Romo Social History Tobacco Use Types Packs/Day Years Used Date Smoking Tobacco: Never Assessed Sex Assigned at Date Recorded Not on file Job Start Date Occupation Industry Not on file Not on file Not on file documented as of this encounter Plan of Treatment Not on file documented as of this encounter Visit Diagnoses Not on filedocumented in this encounter Care Teams Mechatronics Technologist Relationship Specialty Start Date End Date Maricarmen Prescott MD PCP - General 02/01/07 09/07/21 Beti Carrion MD [address] [place] [address] PCP - General Internal Medicine 10/04/21 11/20/22 Johan Griffin [address] [place] [address] PCP - General Internal Medicine 09/08/21 10/03/21 Ayesha Marroquin PA-C [address] [place] [address] PCP - General Internal Medicine 12/29/22 Geoffrey Lynn MD Specialist Cardiovascular Disease 10/20/20 Beatriz Talbot NP Specialist Cardiology 10/20/20 12/27/22 Nita Gutierrez NP [address] [place] [address] Cardiology 12/28/22 documented as of this encounter
--- OUTSIDE RECORDS SUMMARY | 2024-07-04 16:07 | XMS_ITS | Encounter Summary ---
Author Organization [facility] Address [address] [place] [address] Care Team Providers Care Airport Representative Name Role Phone Geoffrey Lynn MD Unavailable Nita Gutierrez NP Unavailable [phone] Ayesha Marroquin PA-C Primary Care Provider Unavail able Encounter Details Date Type Department Care Team Description 10/02/2023 Orders Only Cardio PVC POC 154 [address] [facility] [address] [place] [address] Default, Provider Social History Tobacco Use Types [...] on filedocumented in this encounter Care Teams Airport Representative Relationship Specialty Start Date End Date Ayesha Marroquin PA-C PCP - General Internal Medicine 11/2/23 Geoffrey Lynn MD Specialist Cardiovascular Disease 10/20/20 Nita Gutierrez NP Cardiology 12/28/22 documented as of this encounter
--- OUTSIDE RECORDS SUMMARY | 2024-07-04 16:07 | XMS_ITS | Encounter Summary ---
Author Organization [facility] Address [address] [place] [address] Care Team Providers Care Best Second Jobs Name Role Phone Geoffrey Lynn MD Unavailable Nita Gutierrez NP Unavailable Ayesha Marroquin PA-C Primary Care Provider Unavail able Reason for Visit * Reason Comments E-prescribe Rx Request Encounter Details Date Type Department Care Team Description 04/03/2023 Refill Gastroenterology - [place] [address] [id number] Michel Higuera PA-C [address] [address] E-prescribe Rx Request Social History Tobacco Use [...] on filedocumented in this encounter Care Teams Best Second Jobs Relationship Specialty Start Date End Date Ayesha Marroquin PA-C PCP - General Internal Medicine 12/29/22 Geoffrey Lynn MD Specialist Cardiovascular Disease 10/20/20 Nita Gutierrez NP Cardiology 12/28/22 documented as of this encounter
--- OUTSIDE RECORDS SUMMARY | 2024-07-04 16:07 | XMS_ITS | Encounter Summary ---
Author Organization [facility] Address [address] [place] [address] Care Team Providers Care Risk Lead Name Role Phone Maricarmen Prescott MD Primary Care Provider Unava Geoffrey Guardado MD Unavailable Beatriz Talbot NP Unavailable Unavailab Beti Patrick MD Primary Care Provider [phone] Johan Griffin Primary Care Provider [phone] Nita Gutierrez LOCAL SUPERINTENDENT Unavailable [phone] Ayesha Marroquin PA-C Primary Care Provider Unavail able Encounter Details Date Type Department Care Team Description 11/22/2018 Water And Gas Helper Report Medical Records [address] [place] [address] Petar Smith MD Social History Tobacco Use [...] on filedocumented in this encounter Care Teams Risk Lead Relationship Specialty Start Date End Date Maricarmen Prescott MD PCP - General 02/01/07 09/07/21 Beti Carrion MD [address] [place] [address] PCP - General Internal Medicine 10/04/21 11/20/22 Johan Griffin [address] [place] [id number] PCP - General Internal Medicine 09/08/21 10/03/21 Ayesha Marroquin PA-C [address] [place] [address] PCP - General Internal Medicine 12/29/22 Geoffrey Lynn MD Specialist Cardiovascular Disease 10/20/20 Beatriz Talbot NP Specialist Cardiology 10/20/20 12/27/22 Nita Gutierrez NP [address] [place] [address] Cardiology 12/28/22 documented as of this encounter
--- OUTSIDE RECORDS SUMMARY | 2024-07-04 16:07 | XMS_ITS | Encounter Summary ---
Author Organization [facility] Address [address] [place] [address] Care Team Providers Care Endodontist Name Role Phone Maricarmen Prescott MD Primary Care Provider Unava ilGeoffrey Hall MD Unavailable Beatriz Talbot NP Unavailable Unavailab Beti Patrick MD Primary Care Provider [phone] Johan Griffin Primary Care Provider [phone] Nita Gutierrez NP Unavailable [phone] Ayesha Marroquin PA-C Primary Care Provider Unavail able Encounter Details Date Type Department Care Team Description 04/06/2018 Telephone Medicine/Pediatrics - [address] [phone] Maricarmen Prescott MD Social History Tobacco Use [...] on filedocumented in this encounter Care Teams Endodontist Relationship Specialty Start Date End Date Maricarmen Prescott MD PCP - General 02/01/07 09/07/21 Beti Carrion MD [address] [place] [address] PCP - General Internal Medicine 10/04/21 11/20/22 Johan Griffin [address] [place] [address] PCP - General Internal Medicine 09/08/21 10/03/21 Ayesha Marroquin PA-C [address] [place] [address] PCP - General Internal Medicine 12/29/22 Geoffrey Lynn MD Specialist Cardiovascular Disease 10/20/20 Beatriz Talbot NP Specialist Cardiology 10/20/20 12/27/22 Nita Gutierrez NP [address] [place] [address] Cardiology 12/28/22 documented as of this encounter
--- OUTSIDE RECORDS SUMMARY | 2024-07-04 16:07 | XMS_ITS | Encounter Summary ---
Author Organization [facility] Address [address] [place] [address] Care Team Providers Care Ip Architect Name Role Phone Maricarmen Prescott MD Primary Care Provider Unava Geoffrey Guardado MD Unavailable Beatriz Talbot NP Unavailable Unavailab Beti Patrick MD Primary Care Provider [phone] Johan Griffin Primary Care Provider [phone] Nita Gutierrez ADJUNCT INSTRUCTOR CHEMISTRY Unavailable [phone] Ayesha Marroquin PA-C Primary Care Provider Unavail able Encounter Details Date Type Department Care Team Description 12/05/2018 Orders Only Medicine/Pediatrics - [address] [address] Maricarmen Prescott MD Preoperative examination; Screening for deficiency anemia; custodial current use of anticoagulant therapy Social History [...] EDT [facility] Comment: If patient is -[place]ib[place], multiply result [...] for other and unspecified deficiency anemia termite control technician current use of anticoagulant therapy documented in this encounter Care Teams Ip Architect Relationship Specialty Start Date End Date Maricarmen Prescott MD PCP - General 02/01/07 09/07/21 Beti Carrion MD [address] [place] [address] PCP - General Internal Medicine 10/04/21 11/20/22 Johan Griffin [address] [place] [address] PCP - General Internal Medicine 09/08/21 10/03/21 Ayesha Marroquin PA-C [address] [place] [address] PCP - General Internal Medicine 12/29/22 Geoffrey Lynn MD Specialist Cardiovascular Disease 10/20/20 Beatriz Talbot NP Specialist Cardiology 10/20/20 12/27/22 Nita Gutierrez NP [address] [place] [address] Cardiology 12/28/22 documented as of this encounter
--- OUTSIDE RECORDS SUMMARY | 2024-07-04 16:07 | XMS_ITS | Encounter Summary ---
Author Organization [facility] Address [address] [place] [address] Care Team Providers Care Pulley Maintainer Name Role Phone Maricarmen Prescott MD Primary Care Provider Unava ilGeoffrey Hall MD Unavailable Beatriz Talbot NP Unavailable Unavailab Beti Patrick MD Primary Care Provider [phone] Johan Griffin Primary Care Provider [phone] Nita Gutierrez HOG CONFINEMENT SYSTEM MANAGER Unavailable [phone] Ayesha Marroquin PA-C Primary Care Provider Unavail able Reason for Visit * Reason Comments E-prescribe Rx Request Encounter Details Date Type Department Care Team Description 11/03/2020 Refill Gastroenterology - [address] [place] [phone] Maricarmen Prescott MD E-prescribe Rx Request Social [...] / Plan: [place] / Product Type: MEDICARE [id number] documented in this encounter Plan of Treatment Not on file documented as of this encounter Visit Diagnoses Diagnosis Gastroparesis documented in this encounter Care Teams Pulley Maintainer Relationship Specialty Start Date End Date Maricarmen Prescott MD PCP - General 02/01/07 09/07/21 Beti Carrion MD [address] [place] [address] PCP - General Internal Medicine 10/04/21 11/20/22 Johan Griffin [address] [place] [address] PCP - General Internal Medicine 09/08/21 10/03/21 Ayesha Marroquin PA-C [address] [place] [address] PCP - General Internal Medicine 12/29/22 Geoffrey Lynn MD Specialist Cardiovascular Disease 10/20/20 Beatriz Talbot NP Specialist Cardiology 10/20/20 12/27/22 Nita Gutierrez NP [address] [place] [address] Cardiology 12/28/22 documented as of this encounter
--- OUTSIDE RECORDS SUMMARY | 2024-07-04 16:07 | XMS_ITS | Encounter Summary ---
Author Organization [facility] Address [address] [place] [address] Care Team Providers Care Emt P Name Role Phone Maricarmen Prescott MD Primary Care Provider Unava ilGeoffrey Hall MD Unavailable Beatriz Talbot NP Unavailable Unavailab Beti Patrick MD Primary Care Provider [phone] Johan Griffin Primary Care Provider [phone] Nita Gutierrez NP Unavailable [phone] Ayesha Marroquin PA-C Primary Care Provider Unavail able Reason for Visit * Reason Onset Date Comments Hip Pain 02/13/2013 Encounter Details Date Type Department Care Team Description 02/13/2013 Telephone Medicine/Pediatrics - [address] [phone] Maricarmen Prescott MD Hip Pain Social History [...] MIGUEL TAYLOR Plan: JOSÉ MIGUEL TAYLOR $25/$35 [place] Product Type: OTHER documented in this encounter Plan of Treatment Not on file documented as of this encounter Visit Diagnoses Not on filedocumented in this encounter Care Teams Emt P Relationship Specialty Start Date End Date Maricarmen Prescott MD PCP - General 02/01/07 09/07/21 Beti Carrion MD [address] [place] [address] PCP - General Internal Medicine 10/04/21 11/20/22 Johan Griffin [address] [place] [address] PCP - General Internal Medicine 09/08/21 10/03/21 Ayesha Marroquin PA-C [address] [place] [address] PCP - General Internal Medicine 12/29/22 Geoffrey Lynn MD Specialist Cardiovascular Disease 10/20/20 Beatriz Talbot NP Specialist Cardiology 10/20/20 12/27/22 Nita Gutierrez NP [address] [place] [address] Cardiology 12/28/22 documented as of this encounter
--- OUTSIDE RECORDS SUMMARY | 2024-07-04 16:07 | XMS_ITS | Encounter Summary ---
Author Organization [facility] Address [address] [place] [address] Care Team Providers Care Green Building Materials Designer Name Role Phone Maricarmen Prescott MD Primary Care Provider Unava Geoffrey Guardado MD Unavailable Beatriz Talbot NURSE LDR Unavailable Unavailab Beti Patrick MD Primary Care Provider [phone] Johan Griffin Primary Care Provider [phone] Nita Gutierrez NURSE LDR Unavailable [phone] Ayesha Marroquin PA-C Primary Care Provider Unavail able Encounter Details Date Type Department Care Team Description 09/08/2009 Parts Delivery Driver Report Medical Records [address] [place] [address] Genny Grossman MD Social History Tobacco Use [...] filedocumented in this encounter Care Teams Green Building Materials Designer Relationship Specialty Start Date End Date Maricarmen Prescott MD PCP - General 02/01/07 09/07/21 Beti Carrion MD [address] [place] [address] PCP - General Internal Medicine 10/04/21 11/20/22 Johan Griffin [address] [place] [address] PCP - General Internal Medicine 09/08/21 10/03/21 Ayesha Marroquin PA-C [address] [place] [address] PCP - General Internal Medicine 12/29/22 Geoffrey Lynn MD Specialist Cardiovascular Disease 10/20/20 Beatriz Talbot NP Specialist Cardiology 10/20/20 12/27/22 Nita Gutierrez NP [address] [place] [address] Cardiology 12/28/22 documented as of this encounter
--- OUTSIDE RECORDS SUMMARY | 2024-07-04 16:07 | XMS_ITS | Encounter Summary ---
Author Organization [facility] Address [address] [place] [address] Care Team Providers Care Proposal Consultant Name Role Phone Maricarmen Prescott MD Primary Care Provider Unava Geoffrey Guardado MD Unavailable Beatriz Talbot NP Unavailable Unavailab Beti Patrick MD Primary Care Provider [phone] Johan Griffin Primary Care Provider [phone] Nita Gutierrez BIOCHEMICAL ENGINEER Unavailable [phone] Ayesha Marroquin PA-C Primary Care Provider Unavail able Encounter Details Date Type Department Care Team Description 11/19/2018 Program Dir Report Medical Records [address] [place] [address] Jemima Clay MD Social History Tobacco Use [...] on filedocumented in this encounter Care Teams Proposal Consultant Relationship Specialty Start Date End Date Maricarmen Prescott MD PCP - General 02/01/07 09/07/21 Beti Carrion MD [address] [place] [address] PCP - General Internal Medicine 10/04/21 11/20/22 Johan Griffin [address] [place] [address] [phone] PCP - General Internal Medicine 09/08/21 10/03/21 Ayesha Marroquin PA-C [address] [place] [address] PCP - General Internal Medicine 12/29/22 Geoffrey Lynn MD Specialist Cardiovascular Disease 10/20/20 Beatriz Talbot NP Specialist Cardiology 10/20/20 12/27/22 Nita Gutierrez NP [address] [place] [address] Cardiology 12/28/22 documented as of this encounter
--- OUTSIDE RECORDS SUMMARY | 2024-07-04 16:07 | XMS_ITS | Encounter Summary ---
Author Organization [facility] Address [address] [place] [address] Care Team Providers Care Bean Sprout Laborer Name Role Phone Geoffrey Lynn MD Unavailable Nita Gutierrez NP Unavailable Ayesha Marroquin PA-C Primary Care Provider Unavail able Reason for Visit * Reason Onset Date Comments Blood Pressure Low 08/21/2023 other 08/21/2023 Admitted to [facility] Encounter Details Date Type Department Care Team Description 08/21/2023 Telephone Cardio PVC POC [address] [facility] [address] [place] [address] Geoffrey Lynn MD [address] [place], [place] [phone] Blood Pressure Low; other (Admitted to [facility] ) Social History Tobacco Use Types Packs/Day [...] a refill to requested pharmacy [facility] in [place]. Is aware RX sentwith confirmation. Is thankful [...] Is aware to cont medications from hospital [place] and to cont to monitor BP/HR daily [...] AM EDT Hospital DC summary scanned into [facility] for review. Please see below. Called pt [...] and has a consult to see a curtain cleaner. Her cath is scheduled for 10/11/23 and has a f/u apt booked for 11/07/23. Do you want to see her in a HFU before 11/07/23? * Telephone Encounter - Karo Dunne - 09/01/2023 4:55 PM EDT Patient is calling to report that while she was in the hospital ([facility]), the provider discontinued the following medications: Lisinopril 10mg 1 tab 1 time daily, Chlorthalidone 25 mg 1 tab 1 time daily. The provider also reduced the following medication: Metoprolol down to 12.5 mg 2 times daily.She states that the Isosorbide did not change. She would like a call back with recommendations and what Dr. Lynn thinks of her medications being chnaged. Please advise [phone] * Telephone Encounter - Nita Gutierrez NP - 08/22/2023 10:35 AM EDT I had a feeling! I am really glad you convinced her to go! * Telephone Encounter - Becki Herrera - 08/22/2023 8:38 AM EDT ALEXI.... [place] [facility] and I scanned in her admission note for review. * Telephone Encounter - Jordana Lee - 08/22/2023 8:27 AM EDT SRUTHI Rose called to state that Dr. Lynn did call her last night .And she did go to [facility] andhas been admitted. She is in a room [facility] * Telephone Encounter - Nita Gutierrez NP [...] PCP on most recent labs done at [facility]; unfortunately we do not have these [...] was not at which time she would lung puller and call for help. Once again, I [...] hypertension documented in this encounter Care Teams Bean Sprout Laborer Relationship Specialty Start Date End Date Ayesha Marroquin PA-C PCP - General Internal Medicine 12/29/22 Geoffrey Lynn MD Specialist Cardiovascular Disease 10/20/20 Nita Gutierrez NP Cardiology 12/28/22 documented as of this encounter
--- OUTSIDE RECORDS SUMMARY | 2024-07-04 16:07 | XMS_ITS | Encounter Summary ---
Author Organization [facility] Address [address] [place] [address] Care Team Providers Care Au Pair Name Role Phone Maricarmen Prescott MD Primary Care Provider Unava Geoffrey Guardado MD Unavailable Beatriz Talbot NP Unavailable Unavailab Beti Patrick MD Primary Care Provider [phone] Johan Griffin Primary Care Provider [phone] Nita Gutierrez SULFUR CHLORIDE OPERATOR Unavailable [phone] Ayesha Marroquin PA-C Primary Care Provider Unavail able Encounter Details Date Type Department Care Team Description 10/15/2020 Assembly Line Leader Report Medical Records [address] [place] [address] Jhonny Grayson DO Social History Tobacco Use [...] on filedocumented in this encounter Care Teams Au Pair Relationship Specialty Start Date End Date Maricarmen Prescott MD PCP - General 12/6/07 7/12/22 eBti Carrion MD [address] [place] [address] PCP - General Internal Medicine 10/04/21 11/20/22 Johan Griffin [address] [place], [place] [phone] PCP - General Internal Medicine 09/08/21 10/03/21 Ayesha Marroquin PA-C [address] [place] [address] PCP - General Internal Medicine 12/29/22 Geoffrey Lynn MD Specialist Cardiovascular Disease 10/20/20 Beatriz Talbot NP Specialist Cardiology 10/20/20 12/27/22 Nita Gutierrez NP [address] [place] [address] Cardiology 12/28/22 documented as of this encounter
--- OUTSIDE RECORDS SUMMARY | 2024-07-04 16:07 | XMS_ITS | Encounter Summary ---
Author Organization [facility] Address [address] [place] [address] Care Team Providers Care Claims Associate Name Role Phone Maricarmen Prescott MD Primary Care Provider Unava Geoffrey Guardado MD Unavailable Beatriz Talbot NP Unavailable Unavailab Beti Patrick MD Primary Care Provider [phone] Johan Griffin Primary Care Provider [phone] Nita Gutierrez NP Unavailable [phone] Ayesha Marroquin PA-C Primary Care Provider Unavail able Encounter Details Date Type Department Care Team Description 12/09/2015 Hospital Medical Records [address] [place] [address] Abstract, Provider Social History Tobacco Use Types [...] on filedocumented in this encounter Care Teams Claims Associate Relationship Specialty Start Date End Date Maricarmen Prescott MD PCP - General 02/01/07 09/07/21 Beti Carrion MD [address] [place] [address] PCP - General Internal Medicine 10/04/21 11/20/22 Johan Griffin [address] [place] [address] PCP - General Internal Medicine 09/08/21 10/03/21 Ayesha Marroquin PA-C [address] [place] [address] PCP - General Internal Medicine 12/29/22 Geoffrey Lynn MD Specialist Cardiovascular Disease 10/20/20 Beatriz Talbot NP Specialist Cardiology 10/20/20 12/27/22 Nita Gutierrez NP [address] [place] [address] Cardiology 12/28/22 documented as of this encounter
--- OUTSIDE RECORDS SUMMARY | 2024-07-04 16:07 | XMS_ITS | Clinical Summary ---
Author Organization [address] [place] [address] [place] [phone] Phone Care Team Providers Care Directory Compiler Name Role Phone Ayesha Marroquin Primary Care Provider [phone] Allergies Active Allergy Reactions Criticality Noted Date [...] 12/29/2022 COPD (chronic obstructive pu lmonary disease) (CMS/[facility] V24, CMS/[facility] V28) 12/29/2022 Dyspnea on exertion 12/29/2022 [...] Encounters Date Type Department Care Team Description 06/27/2024 Telephone [facility] Cardiology [facility] [address] [facility] [address] [place] [address] Nita Gutierrez NP 04/18/2024 Telephone [facility] Cardiology [facility] - [address] [place] [address] Ayesha Marroquin PA Medical Records from Last 3 Months Immunizations Name Administration [...] (gastroesophageal reflux disease); COMMENT: Dr. Grossman Osteomyelitis ([facility] V24, [facility] V28) 2001 DX:Osteomyelitis ([facility]); COMM ENT: spine Other specified personal [...] Relation Name Status Comments Brother (Age 45) MD Daughter Alive 1970 healthy Father (Age 80) ? heart va lve problems, prostate ca, chf Mother (Age 81) lipids, di abetes, double bypass, MD; CHF Sister 1 Alive thyroid Sister 2 [...] Care Team (Late st Contact Info) Description 07/11/2024 1:30 PM EDT Office Visit [facility] Hematology Oncology [address] [place] [phone] Kristi Contreras MD [address] [place] [address] Health Maintenance Due Date Last Done Comments [...] Procedure Name Priority Date/Time Associated Diagnosis Comments COMPREHENSIVE METABOLIC PANEL Routine 03/27/2024 2:47 PM EST IgG monoclonal gammopathy Normocytic anemia Hyponatremia LIPID PANEL Routine 08/16/2021 DXA BONE DENSITY STUDY 1+ SITS AXIAL SKEL Routine 05/03/2018 12:46 PM EST Fracture of unspecified carpal bone, left wrist, subsequent encounter for fracture with delayed healing from Last 3 Months or Most Recently Relevant to Health Maintenance Results * (ABNORMAL) Comprehensive metabolic panel (03/27/2024 2:47 PM EST) Sodium 131(L) 133 - 145 mmol/L LAB CHEMISTRY METHOD 03/27/2024 5:13 PM [facility] Potassium 4.5 3.5 - 5.5 mmol/L LAB CHEMISTRY METHOD 03/27/2024 5:13 PM [facility] Chloride 100 96 - 110 mmol/L LAB CHEMISTRY METHOD 03/27/2024 5:13 PM [facility] CO2 27 21 - 32 mmol/L LAB CHEMISTRY METHOD 03/27/2024 5:13 PM [facility] Anion Gap 4 3 - 11 LAB CHEMISTRY METHOD 03/27/2024 5:13 PM [facility] Glucose 93 70 - 100 mg/dL LAB CHEMISTRY METHOD 03/27/2024 5:13 PM [facility] BUN 14 5 - 25 mg/dL LAB CHEMISTRY METHOD 03/27/2024 5:13 PM [facility] Creatinine 0.75 0.50 - 1.10 mg/dL LAB CHEMISTRY METHOD 03/27/2024 5:13 PM [facility] eGFR 80 >=60 mL/min/1. 73m2 LAB CHEMISTRY METHOD 03/27/2024 5:13 PM [facility] Comment:Calculation based on the??Chronic Kidney Disease Epidemiology Collaboration (CKD-EPI) equation refit??without adjustment for race. BUN/Creatinine Ratio 18.7 LAB CHEMISTRY METHOD 03/27/2024 5:13 PM [facility] Calcium 9.7 8.5 - 10.5 mg/dL LAB CHEMISTRY METHOD 03/27/2024 5:13 PM [facility] AST (SGOT) 22 10 - 42 unit/L LAB CHEMISTRY METHOD 03/27/2024 5:13 PM [facility] ALT (SGPT) 22 10 - 60 unit/L LAB CHEMISTRY METHOD 03/27/2024 5:13 PM [facility] Alkaline Phosphatase 82 42 - 121 unit/L LAB CHEMISTRY METHOD 03/27/2024 5:13 PM EST [facility] Total Protein 7.1 6.0 - 8.0 g/dL LAB CHEMISTRY METHOD 03/27/2024 5:13 PM EST [facility] Albumin 3.7 3.2 - 5.0 g/dL LAB CHEMISTRY METHOD 03/27/2024 5:13 PM EST [facility] Total Bilirubin 0.4 0.0 - 1.4 mg/dL LAB CHEMISTRY METHOD 03/27/2024 5:13 PM EST [facility] Blood Venous blood specimen / Unknown Venipuncture / Unknown 03/27/2024 2:47 PM EST 03/27/2024 4:39 PM EST Kristi Contreras MD LAB BLOOD ORDERABLES Final R esult [facility] [address] [place] [address], * (ABNORMAL) Lipid panel (08/16/2021) LDL/HDL Ratio 3 0 - 4 Triglycerides 203(A) 0 - 150 mg/dL Cholesterol 175 0 - 200 mg/dL HDL 71 >=40 mg/dL LDL Cholesterol 64 0 - 100 mg/dL Blood Venous blood specimen / Unknown [facility] Provider LAB BLOOD ORDERABLES Genia [...] 6.9%. IMPRESSION: Normal by WHO criteria. [facility] [employer] Department of Internal Medicine recommends using National [...] screening schedule based on tara Chirinos., [facility] March 17, 2011 for patients [...] 6.9%. IMPRESSION: Normal by WHO criteria. [facility] [employer] Department of Internal Medicine recommendsusing National Osteoporosis [...] FRAX. Optional alternative screening schedule based on leslie Chirinos al., [place] 2011 for patients with osteopenia (based on hip BMD T-score) is as follows: * advanced osteopenia (T scores -2.00 to -2.49), BMD testing every year * moderate osteopenia (T scores -1.50 to -1.99), BMD testing every 5years mild osteopenia or normal BMD (T scores -1.50 and higher), BMD testingevery 15 years Nita Perkins MD IMG DXA PROCEDURES Genia bernal Result from Last 3 Months or Most Recently Relevant to Health Maintenance Insurance MEDICARE MEDICAID - [place] Care Teams Directory Compiler Relationship Specialty Start Date End Date Ayesha Marroquin PA [address] [place] [phone] PCP - General 12/29/22
--- OUTSIDE RECORDS SUMMARY | 2024-07-04 16:07 | XMS_ITS | Encounter Summary ---
Author Organization [facility] Address [address] [place] [address] Care Team Providers Care Pantographer Name Role Phone Maricarmen Prescott MD Primary Care Provider Unava Geoffrey Guardado MD Unavailable Beatriz Talbot NP Unavailable Unavailab Beti Patrick MD Primary Care Provider [phone] Johan Griffin Primary Care Provider [phone] Nita Gutierrez NP Unavailable [phone] Ayesha Marroquin PA-C Primary Care Provider Unavail able Encounter Details Date Type Department Care Team Description 11/05/2020 Wallpaper Installer Report Medical Records [address] [place] [address] Kristi Contreras MD Social History Tobacco Use [...] on filedocumented in this encounter Care Teams Pantographer Relationship Specialty Start Date End Date Maricarmen Prescott MD PCP - General 02/01/07 09/07/21 Beti Carrion MD [address] [place] [address] PCP - General Internal Medicine 10/04/21 11/20/22 Johan Griffin [address] [place] [address] PCP - General Internal Medicine 09/08/21 10/03/21 Ayesha Marroquin PA-C [address] [place] [address] PCP - General Internal Medicine 12/29/22 Geoffrey Lynn MD Specialist Cardiovascular Disease 10/20/20 Beatriz Talbot NP Specialist Cardiology 10/20/20 12/27/22 Nita Gutierrez NP [address] [place] [address] Cardiology 12/28/22 documented as of this encounter
--- OUTSIDE RECORDS SUMMARY | 2024-07-04 16:07 | XMS_ITS | Encounter Summary ---
Author Organization [facility] Address [address] [place] [address] Care Team Providers Care Handkerchief Cutter Name Role Phone Maricarmen Prescott MD Primary Care Provider Unava Geoffrey Guardado MD Unavailable Beatriz Talbot NP Unavailable Unavailab Beti Patrick MD Primary Care Provider [phone] Johan Griffin Primary Care Provider [phone] Nita Gutierrze CAR COUPLER Unavailable [phone] Ayesha Marroquin PA-C Primary Care Provider Unavail able Encounter Details Date Type Department Care Team Description 04/23/[address] Judge Report Medical Records [address] [place] [address] Sai Romo Social History Tobacco Use Types Packs/Day Years Used Date Smoking Tobacco: Never Assessed Sex Assigned at Date Recorded Not on file Job Start Date Occupation Industry Not on file Not on file Not on file documented as of this encounter Plan of Treatment Not on file documented as of this encounter Visit Diagnoses Not on filedocumented in this encounter Care Teams Handkerchief Cutter Relationship Specialty Start Date End Date Maricarmen Prescott MD PCP - General 02/01/07 09/07/21 Beti Carrion MD [address] [place] [address] PCP - General Internal Medicine 10/04/21 11/20/22 Johan Griffin [address] [place] [address] PCP - General Internal Medicine 09/08/21 10/03/21 Ayesha Marroquin PA-C [address] [place] [address] PCP - General Internal Medicine 12/29/22 Geoffrey Lynn MD Specialist Cardiovascular Disease 10/20/20 Beatriz Talbot NP Specialist Cardiology 10/20/20 12/27/22 Nita Gutierrez NP [address] [place] [address] Cardiology 12/28/22 documented as of this encounter
--- OUTSIDE RECORDS SUMMARY | 2024-07-04 16:07 | XMS_ITS | Encounter Summary ---
Author Organization [facility] Address [address] [place] [address] Care Team Providers Care Heel Gouger Name Role Phone Maricarmen Prescott MD Primary Care Provider Unava Geoffrey Guardado MD Unavailable Beatriz Talbot NP Unavailable Unavailab Beti Patrick MD Primary Care Provider [phone] Johan Griffin Primary Care Provider [phone] Nita Gutierrez NP Unavailable [phone] Ayesha Marroquin PA-C Primary Care Provider Unavail able Encounter Details Date Type Department Care Team Description 10/27/2020 [facility] Medical Records [address] [place] [address] Abstract, Provider Social History Tobacco Use Types [...] filedocumented in this encounter Care Teams Heel Gouger Relationship Specialty Start Date End Date Maricarmen Prescott MD PCP - General 02/01/07 09/07/21 Beti Carrion MD [address] [place] [address] PCP - General Internal Medicine 10/04/21 11/20/22 Johan Griffin [address] [place] [address] PCP - General Internal Medicine 09/08/21 10/03/21 Ayesha Marroquin PA-C [address] [place] [address] PCP - General Internal Medicine 12/29/22 Geoffrey Lynn MD Specialist Cardiovascular Disease 10/20/20 Beatriz Talbot NP Specialist Cardiology 10/20/20 12/27/22 Nita Gutierrez NP [address] [place] [address] Cardiology 12/28/22 documented as of this encounter
--- OUTSIDE RECORDS SUMMARY | 2024-07-04 16:07 | XMS_ITS | Encounter Summary ---
Author Organization [facility] Address [address] [place] [address] Care Team Providers Care Leather Heel Breaster Name Role Phone Geoffrey Lynn MD Unavailable Nita Gutierrez NP Unavailable [phone] Ayesha Marroquin PA-C Primary Care Provider Unavail able Encounter Details Date Type Department Care Team Description 11/01/2023 SCAN Medical Records [address] [place] [id number] [place] [address] Social History Tobacco Use Types Packs/Day Years [...] on filedocumented in this encounter Care Teams Leather Heel Breaster Relationship Specialty Start Date End Date Ayesha Marroquin PA-C PCP - General Internal Medicine 12/29/22 Geoffrey Lynn MD Specialist Cardiovascular Disease 10/20/20 Nita Gutierrez NP Cardiology 12/28/22 documented as of this encounter
--- OUTSIDE RECORDS SUMMARY | 2024-07-04 16:07 | XMS_ITS | Encounter Summary ---
Author Organization [facility] Address [address] [place] [address] Care Team Providers Care Easement Man Name Role Phone Maricarmen Prescott MD Primary Care Provider Unava Geoffrey Guardado MD Unavailable Beatriz Talbot WIRE SPINNER Unavailable Unavailab Beti Patrick MD Primary Care Provider [phone] Johan Griffin Primary Care Provider [phone] Nita Gutierrez WIRE SPINNER Unavailable [phone] Ayesha Marroquin PA-C Primary Care Provider Unavail able Encounter Details Date Type Department Care Team Description 06/11/2013 Controlled Substance Plan Medical Records [address] [place] [address] Abstract, Provider Social History Tobacco Use Types [...] on filedocumented in this encounter Care Teams Easement Man Relationship Specialty Start Date End Date Maricarmen Prescott MD PCP - General 02/01/07 09/07/21 Beti Carrion MD [address] [place] [address] PCP - General Internal Medicine 10/04/21 11/20/22 Johan Griffin [address] [place] [address] PCP - General Internal Medicine 09/08/21 10/03/21 Ayesha Marroquin PA-C [address] [place] [address] PCP - General Internal Medicine 12/29/22 Geoffrey Lynn MD Specialist Cardiovascular Disease 10/20/20 Beatriz Talbot NP Specialist Cardiology 10/20/20 12/27/22 Nita Gutierrez NP [address] [place] [address] Cardiology 12/28/22 documented as of this encounter
--- OUTSIDE RECORDS SUMMARY | 2024-07-04 16:07 | XMS_ITS | Encounter Summary ---
Author Organization [facility] Address [address] [place] [address] Care Team Providers Care Database Security Expert Name Role Phone Maricarmen Prescott MD Primary Care Provider Unava Geoffrey Guardado MD Unavailable Beatriz Talbot FOOT ROENTGENOLOGIST Unavailable Unavailab Beti Patrick MD Primary Care Provider [phone] Johan Griffin Primary Care Provider [phone] Nita Gutierrez FOOT ROENTGENOLOGIST Unavailable [phone] Ayesha Marroquin PA-C Primary Care Provider Unavail able Encounter Details Date Type Department Care Team Description 04/30/2010 Sports Teacher Report Medical Records [address] [place] [address] Arnold King Social History Tobacco Use Types [...] on filedocumented in this encounter Care Teams Database Security Expert Relationship Specialty Start Date End Date Maricarmen Prescott MD PCP - General 02/01/07 09/07/21 Beti Carrion MD [address] [place] [address] PCP - General Internal Medicine 10/04/21 11/20/22 Johan Griffin [address] [place] [address] PCP - General Internal Medicine 09/08/21 10/03/21 Ayesha Marroquin PA-C [address] [place] [address] PCP - General Internal Medicine 12/29/22 Geoffrey Lynn MD Specialist Cardiovascular Disease 10/20/20 Beatriz Talbot NP Specialist Cardiology 10/20/20 12/27/22 Nita Gutierrez NP [address] [place] [address] Cardiology 12/28/22 documented as of this encounter
--- OUTSIDE RECORDS SUMMARY | 2024-07-04 16:07 | XMS_ITS | Encounter Summary ---
Author Organization [facility] Address [address] [place] [address] Care Team Providers Care Apparatus Lineman Name Role Phone Maricarmen Prescott MD Primary Care Provider Unava ilGeoffrey Hall MD Unavailable Beatriz Talbot NP Unavailable Unavailab Beti Patrick MD Primary Care Provider [phone] Johan Griffin Primary Care Provider [phone] Nita Gutierrez NP Unavailable [phone] Ayesha Marroquin PA-C Primary Care Provider Unavail able Encounter Details Date Type Department Care Team Description 01/12/2018 Telephone Gastroenterology - [address] [id number] Jose Raul Lombardi MD Social History Tobacco Use Types Packs/Day [...] on filedocumented in this encounter Care Teams Apparatus Lineman Relationship Specialty Start Date End Date Maricarmen Prescott MD PCP - General 02/01/07 09/07/21 Beti Carrion MD [address] [place] [address] PCP - General Internal Medicine 10/04/21 11/20/22 Johan Griffin [address] [place] [address] PCP - General Internal Medicine 09/08/21 10/03/21 Ayesha Marroquin PA-C [address] [place] [address] PCP - General Internal Medicine 12/29/22 Geoffrey Lynn MD Specialist Cardiovascular Disease 10/20/20 Beatriz Talbot NP Specialist Cardiology 10/20/20 12/27/22 Nita Gutierrez NP [address] [place] [address] Cardiology 12/28/22 documented as of this encounter
--- OUTSIDE RECORDS SUMMARY | 2024-07-04 16:07 | XMS_ITS | Clinical Summary ---
Author Organization [facility] Address [address] [place] [address] Care Team Providers Care Correspondence Coordinator Name Role Phone Geoffrey Lynn MD Unavailable Nita Gutierrez NP Unavailable [phone] Ayesha Marroquin PA-C Primary Care Provider [...] 10/30 Overview: Done on 10/11/2023 at [facility] w KM [...] Relation Name Status Comments Brother (Age 45) [place] Daughter Alive 1970 healthy Father (Age 80) ? heart va lve problems, prostate ca, chf Mother (Age 81) lipids, di abetes, double bypass, [place]; CHF Sister 1 Alive thyroid Sister 2 [...] VACCINE Completed 12/23/2015, 11/27/19 11 Care Teams Correspondence Coordinator Relationship Specialty Start Date End Date Ayesha Marroquin PA-C PCP - General Internal Medicine 12/29/22 Geoffrey Lynn MD Specialist Cardiovascular Disease 10/20/20 Nita Gutierrez NP Cardiology 12/28/22
--- OUTSIDE RECORDS SUMMARY | 2024-07-04 16:07 | XMS_ITS | Encounter Summary ---
Author Organization [facility] Address [address] [place] [address] Care Team Providers Care Higher Level Teaching Assistant Name Role Phone Geoffrey Lynn MD Unavailable Nita Gutierrez NP Unavailable [phone] Ayesha Marroquin PA-C Primary Care Provider Unavail able Encounter Details Date Type Department Care Team Description 10/11/2023 SCAN Medical Records [address] [place] [address] Abstract, Provider Social History Tobacco Use Types [...] Date/Time Associated Diagnosis Comments OUTSIDE LAB Routine 10/11/2023 documented in this encounter Results * OUTSIDE LAB (10/11/2023) Provider Abstract LAB documented in this encounter Visit Diagnoses Not on filedocumented in this encounter Care Teams Higher Level Teaching Assistant Relationship Specialty Start Date End Date Ayesha Marroquin PA-C PCP - General Internal Medicine 12/29/22 Geoffrey Lynn MD Specialist Cardiovascular Disease 10/20/20 Nita Gutierrez NP Cardiology 12/28/22 documented as of this encounter
--- OUTSIDE RECORDS SUMMARY | 2024-07-04 16:07 | XMS_ITS | Encounter Summary ---
Author Organization [facility] Address [address] [place] [address] Care Team Providers Care Drapery Cutter Machine Name Role Phone Maricarmen Prescott MD Primary Care Provider Unava Geoffrey Guardado MD Unavailable Beatriz Talbot NP Unavailable Unavailab Beti Patrick MD Primary Care Provider [phone] Johan Griffin Primary Care Provider [phone] Nita Gutierrez NP Unavailable [phone] Ayesha Marroquin PA-C Primary Care Provider Unavail able Encounter Details Date Type Department Care Team Description 05/03/2013 Telephone Medicine/Pediatrics - [address] [phone] Maricarmen Prescott MD Social History Tobacco Use [...] on filedocumented in this encounter Care Teams Drapery Cutter Machine Relationship Specialty Start Date End Date Maricarmen Prescott MD PCP - General 02/01/07 09/07/21 Beti Carrion MD [address] [place] [address] PCP - General Internal Medicine 10/04/21 11/20/22 Johan Griffin [address] [place] [address] PCP - General Internal Medicine 09/08/21 10/03/21 Ayesha Marroquin PA-C [address] [place] [address] PCP - General Internal Medicine 12/29/22 Geoffrey Lynn MD Specialist Cardiovascular Disease 10/20/20 Beatriz Talbot NP Specialist Cardiology 10/20/20 12/27/22 Nita Gutierrez NP [address] [place] [address] Cardiology 12/28/22 documented as of this encounter
--- OUTSIDE RECORDS SUMMARY | 2024-07-04 16:07 | XMS_ITS | Encounter Summary ---
Author Organization [facility] Address [address] [place] [address] Care Team Providers Care Loop Tender Name Role Phone Maricarmen Prescott MD Primary Care Provider Unava ilGeoffrey Hall MD Unavailable Beatriz Talbot NP Unavailable Unavailab Beti Patrick MD Primary Care Provider [phone] Johan Griffin Primary Care Provider [phone] Nita Gutierrez COLLECTOR OF AQUARIUM SPECIMENS Unavailable [phone] Ayesha Marroquin PA-C Primary Care Provider Unavail able Reason for Visit * Reason Onset Date Comments External Sleep Study Request 12/07/2017 Nneka e Sleep Study Encounter Details Date Type Department Care Team Description 12/07/2017 Telephone Pulmonology - [place] [address] [facility] [address] [place] [phone] Ervin Antonio MD [address] [facility] [address] [place] [address] External Sleep Study Request (Home [...] Jade Pittman - 12/07/2017 11:09 AM EDT Medicare/[employer] No auth required Order faxed to sleep medicine services. They will contact patient with appointment.Notification letter mailed. documented in this encounter Plan of Treatment Not on file documented as of this encounter Visit Diagnoses Not on filedocumented in this encounter Care Teams Loop Tender Relationship Specialty Start Date End Date Maricarmen Prescott MD PCP - General 02/01/07 09/07/21 Beti Carrion MD [address] [place] [address] PCP - General Internal Medicine 10/04/21 11/20/22 Johan Griffin [address] [place] [address] PCP - General Internal Medicine 09/08/21 10/03/21 Ayesha Marroquin PA-C [address] [place] [address] PCP - General Internal Medicine 12/29/22 Geoffrey Lynn MD Specialist Cardiovascular Disease 10/20/20 Beatriz Talbot NP Specialist Cardiology 10/20/20 12/27/22 Nita Gutierrez NP [address] [place] [address] Cardiology 12/28/22 documented as of this encounter
--- OUTSIDE RECORDS SUMMARY | 2024-07-04 16:07 | XMS_ITS | Encounter Summary ---
Author Organization [facility] Address [address] [place] [address] Care Team Providers Care Casting Machine Operator Automatic Name Role Phone Maricarmen Prescott MD Primary Care Provider Unava ilGeoffrey Hall MD Unavailable Beatriz Talbot NP Unavailable Unavailab Beti Patrick MD Primary Care Provider [phone] Johan Griffin Primary Care Provider [phone] Nita Gutierrez LACQUER PIN PRESS OPERATOR Unavailable [phone] Ayesha Marroquin PA-C Primary Care Provider Unavail able Reason for Visit * Reason Onset Date Comments Law Office Receptionist Feedback 02/05/2015 Encounter Details Date Type Department Care Team Description 02/05/2015 Telephone Medicine/Pediatrics - [address] [phone] Maricarmen Prescott MD Law Office Receptionist Feedback Social History Tobacco Use Types Packs/Day Years [...] * Telephone Encounter - Jade Pittman - 02/05/2015 4:09 PM EST No insurance referral required per patient's insurance. Called [facility] - details given. Looking for notes and mri- faxed to [phone] * Telephone Encounter - Nita Mckeon - 02/05/2015 4:03 PM EST Did you verify this is patients current insurance? YES [place] / [place] / Product Type: [place]ARE [id number] Effective 11/27/08: BCBS will not retro referral requests over 90 days. If request is for this please instruct patient to call the 800# on their insurance card to appeal. Do not submit a request. Referrals cannot be processed if the insurance is not accurate. If the insurance listed above in red is NO BILLING INFORMATION FOUND FOR THIS ENCOUTNER The patients correct insurance must be obtained and registered in [facility] or their referral can not be processed. Who is calling to request this referral? MD office If the caller is not the patient, what is their name? Carmencita FIRST and LAST NAME of SPECIALIST PATIENT is seeing: Connor Yang What specialty is this? 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 YES Who referred the patient to this specialty? Unknown Is this visit:Initial Visit Address of Specialist: [address] [place] [address] Phone # of Specialist:[phone] Fax #: (if applicable):[phone] Does patient have an appointment scheduled?: YES Date of appointment- (including a retro-request): 02/11/15 Is this appointment related to: Not MVA, WC or Surgery related documented in this encounter Plan of Treatment Not on file documented as of this encounter Visit Diagnoses Not on filedocumented in this encounter Care Teams Casting Machine Operator Automatic Relationship Specialty Start Date End Date Maricarmen Prescott MD PCP - General 02/01/07 09/07/21 Beti Carrion MD [address] [place] [address] PCP - General Internal Medicine 10/04/21 11/20/22 Johan Griffin [address] [place] [address] PCP - General Internal Medicine 09/08/21 10/03/21 Ayesha Marroquin PA-C [address] [place] [address] PCP - General Internal Medicine 12/29/22 Geoffrey Lynn MD Specialist Cardiovascular Disease 10/20/20 Beatriz Talbot NP Specialist Cardiology 10/20/20 12/27/22 Nita Gutierrez NP [address] [place] [address] Cardiology 12/28/22 documented as of this encounter
--- OUTSIDE RECORDS SUMMARY | 2024-07-04 16:07 | XMS_ITS | Encounter Summary ---
Author Organization [employer] [facility] Address [address] [place] [address] Care Team Providers Care Precision Lens Generator Name Role Phone Geoffrey Lynn MD Unavailable Nita Gutierrez NP Unavailable [phone] Ayesha Marroquin PA-C Primary Care Provider Unavail able Encounter Details Date Type Department Care Team Description 04/07/2023 Telephone Cardio PVC POC [address] [facility] [address] [place] [address] Geoffrey Lynn MD [address] [place] [address] Social History Tobacco Use Types Packs/Day Years Used Date Smoking Tobacco: Former Cigarettes 0.2 1 04/17/1980 - 02/27/1997 Smokeless Tobacco: Former Comments:quit 1997 1 pk per week Alcohol Use Standard Drinks/Week Comments Yes 0 (1 standard drink = 0.6 oz pure alcohol) nightly glass of nana or wine Sex Assigned at Date Recorded Not on file Job Start Date Occupation Industry Not on file Not on file Not on file documented as of this encounter Plan of Treatment Not on file documented as of this encounter Visit Diagnoses Not on filedocumented in this encounter Care Teams Precision Lens Generator Relationship Specialty Start Date End Date Ayesha Marroquin PA-C PCP - General Internal Medicine 12/29/22 Geoffrey Lynn MD Specialist Cardiovascular Disease 10/20/20 Nita Gutierrez NP Cardiology 12/28/22 documented as of this encounter
--- OUTSIDE RECORDS SUMMARY | 2024-07-04 16:07 | XMS_ITS | Encounter Summary ---
Author Organization [facility] Address [address] [place] [address] Care Team Providers Care Claims Account Manager Name Role Phone Maricarmen Prescott MD Primary Care Provider Unava ilGeoffrey Hall MD Unavailable Beatriz Talbot CATCHER FILTER TIP Unavailable Unavailab Beti Patrick MD Primary Care Provider [phone] Johan Griffin Primary Care Provider [phone] Nita Gutierrez CATCHER FILTER TIP Unavailable [phone] Ayesha Marroquin PA-C Primary Care Provider Unavail able Encounter Details Date Type Department Care Team Description 05/19/2015 CAMPUS COORDINATOR/[facility] Report Medical Records [address] [place] [address] Abstract, Provider Social History Tobacco Use Types [...] filedocumented in this encounter Care Teams Claims Account Manager Relationship Specialty Start Date End Date Maricarmen Prescott MD PCP - General 02/01/07 09/07/21 Beti Carrion MD [address] [place] [address] PCP - General Internal Medicine 10/04/21 11/20/22 Johan Griffin [address] [place] [address] PCP - General Internal Medicine 09/08/21 10/03/21 Ayesha Marroquin PA-C [address] [place] [address] PCP - General Internal Medicine 12/29/22 Geoffrey yLnn MD Specialist Cardiovascular Disease 10/20/20 Beatriz Talbot NP Specialist Cardiology 10/20/20 12/27/22 Nita Gutierrez NP [address] [place] [address] Cardiology 12/28/22 documented as of this encounter
--- OUTSIDE RECORDS SUMMARY | 2024-07-04 16:07 | XMS_ITS | Encounter Summary ---
Author Organization [facility] Address [address] [place] [address] Care Team Providers Care Salon Shampoo Assistant Name Role Phone Maricarmen Prescott MD Primary Care Provider Unava Geoffrey Guardado MD Unavailable Beatriz Talbot JUNIOR LINUX ADMINISTRATOR Unavailable Unavailab Beti Patrick MD Primary Care Provider [phone] Johan Griffin Primary Care Provider [phone] Nita Gutierrez JUNIOR LINUX ADMINISTRATOR Unavailable [phone] Ayesha Marroquin PA-C Primary Care Provider Unavail able Encounter Details Date Type Department Care Team Description 12/21/2012 Controlled Substance Plan Medical Records [address] [place] [address] Abstract, Provider Social History Tobacco Use Types [...] on filedocumented in this encounter Care Teams Salon Shampoo Assistant Relationship Specialty Start Date End Date Maricarmen Prescott MD PCP - General 02/01/07 09/07/21 Beti Carrion MD [address] [place] [address] PCP - General Internal Medicine 10/04/21 11/20/22 Johan Griffin [address] [place] [address] PCP - General Internal Medicine 09/08/21 10/03/21 Ayesha Marroquin PA-C [address] [place] [address] PCP - General Internal Medicine 12/29/22 Geoffrey Lynn MD Specialist Cardiovascular Disease 10/20/20 Beatriz Talbot NP Specialist Cardiology 10/20/20 12/27/22 Nita Gutierrez NP [address] [place] [address] Cardiology 12/28/22 documented as of this encounter
--- OUTSIDE RECORDS SUMMARY | 2024-07-04 16:07 | XMS_ITS | Encounter Summary ---
Author Organization [facility] Address [address] [place] [address] Care Team Providers Care Dining Room Maid Name Role Phone Maricarmen Prescott MD Primary Care Provider Unava Geoffrey Guardado MD Unavailable Beatriz Talbot NP Unavailable Unavailab Beti Patrick MD Primary Care Provider [phone] Johan Griffin Primary Care Provider [phone] Nita Gutierrez COPYIST Unavailable [phone] Ayesha Marroquin PA-C Primary Care Provider Unavail able Encounter Details Date Type Department Care Team Description 11/15/2017 Crusher Screen Repairer Report Medical Records [address] [place] [address] Alissa Beltran Social History Tobacco Use Types [...] on filedocumented in this encounter Care Teams Dining Room Maid Relationship Specialty Start Date End Date Maricarmen Prescott MD PCP - General 12/6/07 7/12/22 Beti Carrion MD [address] [place] [address] PCP - General Internal Medicine 10/04/21 11/20/22 Joahn Griffin [address] [place], [place] [address] PCP - General Internal Medicine 09/08/21 10/03/21 Ayesha Marroquin PA-C [address] [place] [address] PCP - General Internal Medicine 12/29/22 Geoffrey Lynn MD Specialist Cardiovascular Disease 10/20/20 Beatriz Talbot NP Specialist Cardiology 10/20/20 12/27/22 Nita Gutierrez NP [address] [place] [address] Cardiology 12/28/22 documented as of this encounter
--- OUTSIDE RECORDS SUMMARY | 2024-07-04 16:07 | XMS_ITS | Encounter Summary ---
Author Organization [facility] [employer] [facility] Address [address] [place] [address] Care Team Providers Care Scrap Yard Worker Name Role Phone Maricarmen rPescott MD Primary Care Provider Unava Geoffrey Guardado MD Unavailable Beatriz Talbot NP Unavailable Unavailab Beti Patirck MD Primary Care Provider [phone] Johan Griffin Primary Care Provider [phone] Nita Gutierrez NP Unavailable [phone] Ayesha Marroquin PA-C Primary Care Provider Unavail able Encounter Details Date Type Department Care Team Description 01/30/2018 [facility] Medical Records [address] [place] [address] Abstract, Provider Social History Tobacco Use Types [...] on filedocumented in this encounter Care Teams Scrap Yard Worker Relationship Specialty Start Date End Date Maricarmen Prescott MD PCP - General 02/01/07 09/07/21 Beti Carrion MD [address] [place] [address] PCP - General Internal Medicine 10/04/21 11/20/22 Johan Griffin [address] [place] [address] PCP - General Internal Medicine 09/08/21 10/03/21 yAesha Marroquin PA-C [address] [place] [address] PCP - General Internal Medicine 12/29/22 Geoffrey Lynn MD Specialist Cardiovascular Disease 10/20/20 Beatriz Talbot NP Specialist Cardiology 10/20/20 12/27/22 Nita Gutierrez NP [address] [place] [address] Cardiology 12/28/22 documented as of this encounter
--- OUTSIDE RECORDS SUMMARY | 2024-07-04 16:07 | XMS_ITS | Encounter Summary ---
Author Organization [facility] Address [address] [place] [address] Care Team Providers Care Shipping Lead Person Name Role Phone Maricarmen Prescott MD Primary Care Provider Unava Geoffrey Guardado MD Unavailable Beatriz Talbot BUSINESS PROCESS COORDINATOR Unavailable Unavailab Beti Patrick MD Primary Care Provider [phone] Johan Griffin Primary Care Provider [phone] Nita Gutierrez BUSINESS PROCESS COORDINATOR Unavailable [phone] Ayesha Marroquin PA-C Primary Care Provider Unavail able Encounter Details Date Type Department Care Team Description 08/09/2012 Controlled Substance Plan Medical Records [address] [place] [address] Abstract, Provider Social History Tobacco Use Types [...] on filedocumented in this encounter Care Teams Shipping Lead Person Relationship Specialty Start Date End Date Maricarmen Prescott MD PCP - General 02/01/07 09/07/21 Beti Carrion MD [address] [place] [address] PCP - General Internal Medicine 10/04/21 11/20/22 Johan Griffin [address] [place] [address] PCP - General Internal Medicine 09/08/21 10/03/21 Ayesha Marroquin PA-C [address] [place] [address] PCP - General Internal Medicine 12/29/22 Geoffrey Lynn MD Specialist Cardiovascular Disease 10/20/20 Beatriz Talbot NP Specialist Cardiology 10/20/20 12/27/22 Nita Gutierrez NP [address] [place] [address] Cardiology 12/28/22 documented as of this encounter
--- OUTSIDE RECORDS SUMMARY | 2024-07-04 16:07 | XMS_ITS | Encounter Summary ---
[facility] Organization [facility] Address [address] [place] [address] Care Team Providers Care Child Life Assistant Name Role Phone Maricarmen Prescott MD Primary Care Provider Unava Geoffrey Guardado MD Unavailable Beatriz Talbot FOOD INSPECTOR Unavailable Unavailab Beti Patrick MD Primary Care Provider [phone] Johan Griffin Primary Care Provider [phone] Nita Gutierrez FOOD INSPECTOR Unavailable [phone] Ayesha Marroquin PA-C Primary Care Provider Unavail able Encounter Details Date Type Department Care Team Description 02/10/2015 Business Doc Medical Records [address] [place] [address] Abstract, Provider Social History Tobacco Use Types [...] filedocumented in this encounter Care Teams Child Life Assistant Relationship Specialty Start Date End Date Maricarmen Prescott MD PCP - General 02/01/07 09/07/21 Beti Carrion MD [address] [place] [address] PCP - General Internal Medicine 10/04/21 11/20/22 Johan Griffin [address] [place] [address] PCP - General Internal Medicine 09/08/21 10/03/21 Ayesha Marroquin PA-C [address] [place] [address] PCP - General Internal Medicine 12/29/22 Geoffrey Lynn MD Specialist Cardiovascular Disease 10/20/20 Beatriz Talbot NP Specialist Cardiology 10/20/20 12/27/22 Nita Gutierrez NP [address] [place] [address] Cardiology 12/28/22 documented as of this encounter
--- OUTSIDE RECORDS SUMMARY | 2024-07-04 16:07 | XMS_ITS | Encounter Summary ---
Author Organization [facility] [email or web address] [facility] Address [address] [place] [address] Care Team Providers Care Dividing Machine Operator Helper Name Role Phone Geoffrey Lynn MD Unavailable Nita Gutierrez NP Unavailable [phone] Ayesha Marroquin PA-C Primary Care Provider Unavail able Encounter Details Date Type Department Care Team Description 02/06/2023 Telephone Cardio P[facility] [address] [facility] [address] [place] [address] Geoffrey Lynn MD [address] [place] [address] [phone] Social History Tobacco Use Types Packs/Day Years [...] on filedocumented in this encounter Care Teams Dividing Machine Operator Helper Relationship Specialty Start Date End Date Ayesha Marroquin PA-C PCP - General Internal Medicine 12/29/22 Geoffrey Lynn MD Specialist Cardiovascular Disease 10/20/20 Nita Gutierrez NP Cardiology 12/28/22 documented as of this encounter
--- OUTSIDE RECORDS SUMMARY | 2024-07-04 16:07 | XMS_ITS | Encounter Summary ---
Author Organization [facility] Address [address] [place] [address] Care Team Providers Care Range Operator Name Role Phone Maricarmen Prescott MD Primary Care Provider Unava Geoffrey Guardado MD Unavailable Beatriz Talbot REHABILITATION TECH Unavailable Unavailab Beti Patrick MD Primary Care Provider [phone] Johan Griffin Primary Care Provider [phone] Nita Gutierrez REHABILITATION TECH Unavailable [phone] Ayesha Marroquin PA-C Primary Care Provider Unavail able Encounter Details Date Type Department Care Team Description 01/09/2015 Wellness Visit Medical Records [address] [place] [address] Maricarmen Prescott MD Social History Tobacco Use [...] on filedocumented in this encounter Care Teams Range Operator Relationship Specialty Start Date End Date Maricarmen Prescott MD PCP - General 02/01/07 09/07/21 Beti Carrion MD [address] [place] [address] PCP - General Internal Medicine 10/04/21 11/20/22 Johan Griffin 4 [place] [address] PCP - General Internal Medicine 09/08/21 10/03/21 Ayesha Marroquin PA-C [address] [place] [address] PCP - General Internal Medicine 12/29/22 Geoffrey Lynn MD Specialist Cardiovascular Disease 10/20/20 Beatriz Talbot NP Specialist Cardiology 10/20/20 12/27/22 Nita Gutierrez NP [address] [place] [address] Cardiology 12/28/22 documented as of this encounter
--- OUTSIDE RECORDS SUMMARY | 2024-07-04 16:07 | XMS_ITS | Encounter Summary ---
Author [facility] Address [address] [place] [address] Care Team Providers Care Shredded Filler Hopper Feeder Name Role Phone Maricarmen Prescott MD Primary Care Provider Unava ilGeoffrey Hall MD Unavailable Beatriz Talbot NP Unavailable Unavailab Beti Patrick MD Primary Care Provider [phone] Johan Griffin Primary Care Provider [phone] Nita Gutierrez NP Unavailable [phone] Ayesha Marroquin PA-C Primary Care Provider Unavail able Reason for Visit * Reason Onset Date Comments refill request 09/11/2020 Encounter Details Date Type Department Care Team Description 09/11/2020 Refill Gastroenterology - [place] [address] [id number] Michel Higuera PA-C [address] [address] refill request Social History Tobacco Use Types [...] on filedocumented in this encounter Care Teams Shredded Filler Hopper Feeder Relationship Specialty Start Date End Date Maricarmen Prescott MD PCP - General 02/01/07 09/07/21 Beti Carrion MD [address] [place] [address] PCP - General Internal Medicine 10/04/21 11/20/22 Johan Griffin [address] [place] [address] PCP - General Internal Medicine 09/08/21 10/03/21 Ayesha Marroquin PA-C [address] [place] [address] PCP - General Internal Medicine 12/29/22 Geoffrey Lynn MD Specialist Cardiovascular Disease 10/20/20 Beatriz Talbot NP Specialist Cardiology 10/20/20 12/27/22 Nita Gutierrez NP [address] [place] [address] [phone] Cardiology 12/28/22 documented as of this encounter
--- OUTSIDE RECORDS SUMMARY | 2024-07-04 16:08 | XMS_ITS | Encounter Summary ---
Author Organization [facility] Address [address] [place] [address] Care Team Providers Care Cat Tender Name Role Phone Maricarmen Prescott MD Primary Care Provider Unava Geoffrey Guardado MD Unavailable Beatriz Talbot NP Unavailable Unavailab Beti Patrick MD Primary Care Provider [phone] Johan Griffin Primary Care Provider [phone] Nita Gutierrez ENVIRONMENTAL PLANNING ENGINEER Unavailable [phone] Ayesha Marroquin PA-C Primary Care Provider Unavail able Encounter Details Date Type Department Care Team Description 03/10/2019 Log Handler Report Medical Records [address] [place] [address] Segundo Funez MD Social History Tobacco Use [...] on filedocumented in this encounter Care Teams Cat Tender Relationship Specialty Start Date End Date Maricarmen Prescott MD PCP - General 02/01/07 09/07/21 Beti Carrion MD [address] [place] [address] PCP - General Internal Medicine 10/04/21 11/20/22 Johan Griffin [address] [place], [place] [phone] PCP - General Internal Medicine 09/08/21 10/03/21 Ayesha Marroquin PA-C [address] [place] [address] PCP - General Internal Medicine 12/29/22 Geoffrey Lynn MD Specialist Cardiovascular Disease 10/20/20 Beatriz Talbot NP Specialist Cardiology 10/20/20 12/27/22 Nita Gutierrez NP [address] [place] [address] Cardiology 12/28/22 documented as of this encounter
--- OUTSIDE RECORDS SUMMARY | 2024-07-04 16:08 | XMS_ITS | Encounter Summary ---
Author Organization [facility] Address [address] [place] [address] Care Team Providers Care Gymnastics Coach Or Instructor Name Role Phone Maricarmen Prescott MD Primary Care Provider Unava Geoffrey Guardado MD Unavailable Beatriz Talbot FIBERGLASS TUBE MOLDER Unavailable Unavailab Beti Patrick MD Primary Care Provider [phone] Johan Griffin Primary Care Provider [phone] Nita Gutierrez FIBERGLASS TUBE MOLDER Unavailable [phone] Ayesha Marroquin PA-C Primary Care Provider Unavail able Encounter Details Date Type Department Care Team Description 01/26/2011 Stand Grinder Report Medical Records [address] [place] [address] Social History Tobacco Use Types Packs/Day Years [...] on filedocumented in this encounter Care Teams Gymnastics Coach Or Instructor Relationship Specialty Start Date End Date Maricarmen Prescott MD PCP - General 02/01/07 09/07/21 Beti Carrion MD [address] [place] [address] PCP - General Internal Medicine 10/04/21 11/20/22 Johan Griffin [address] [place] [address] PCP - General Internal Medicine 09/08/21 10/03/21 Ayesha Marroquin PA-C [address] [place] [address] PCP - General Internal Medicine 12/29/22 Geoffery Lynn MD Specialist Cardiovascular Disease 10/20/20 Beatriz Talbot NP Specialist Cardiology 10/20/20 12/27/22 Nita Gutierrez NP [address] [place] [address] Cardiology 12/28/22 documented as of this encounter
--- OUTSIDE RECORDS SUMMARY | 2024-07-04 16:08 | XMS_ITS | Encounter Summary ---
Author Organization [employer] [facility] Address [address] [place] [address] Care Team Providers Care Service Car Driver Name Role Phone Geoffrey Lynn MD Unavailable Beatriz Talbot NP Unavailable Unavailab Beti Patrick MD Primary Care Provider [phone] Nita Gutierrez GALLERY OR MUSEUM ATTENDANT Unavailable [phone] Ayesha Marroquin PA-C Primary Care Provider Unavail able Encounter Details Date Type Department Care Team Description 11/26/2021 SCAN Medical Records [address] [place] [address] Kristi Contreras MD Social History Tobacco Use [...] on filedocumented in this encounter Care Teams Service Car Driver Relationship Specialty Start Date End Date Beti Carrion MD [address] [place] [address] PCP - General Internal Medicine 10/04/21 11/20/22 Ayesha Marroquin PA-C [address] [place] [address] PCP - General Internal Medicine 12/29/22 Geoffrey Lynn MD Specialist Cardiovascular Disease 10/20/20 Beatriz Talbot NP Specialist Cardiology 10/20/20 12/27/22 Nita Gutierrez NP [address] [place] [address] Cardiology 12/28/22 documented as of this encounter
--- OUTSIDE RECORDS SUMMARY | 2024-07-04 16:08 | XMS_ITS | Encounter Summary ---
Author Organization [facility] Address [address] [place] [address] Care Team Providers Care Cable Engineer Name Role Phone Maricarmen Prescott MD Primary Care Provider Unava Geoffrey Guardado MD Unavailable Beatriz Talbot NP Unavailable Unavailab Beti Patrick MD Primary Care Provider [phone] Johan Griffin Primary Care Provider [phone] Nita Gutierrez LINTER OPERATOR Unavailable [phone] Ayesha Marroquin PA-C Primary Care Provider Unavail able Encounter Details Date Type Department Care Team Description 09/04/2019 Presales Engineer Report Medical Records [address] [place] [address] Kristi Contreras MD Social History Tobacco Use [...] filedocumented in this encounter Care Teams Cable Engineer Relationship Specialty Start Date End Date Maricarmen Prescott MD PCP - General 02/01/07 09/07/21 Beti Carrion MD [address] [place] [address] PCP - General Internal Medicine 10/04/21 11/20/22 Johan Griffin [address] [place] [address] PCP - General Internal Medicine 09/08/21 10/03/21 Ayesha Marroquin PA-C [address] [place] [address] PCP - General Internal Medicine 12/29/22 Geoffrey Lynn MD Specialist Cardiovascular Disease 10/20/20 Beatriz Talbot NP Specialist Cardiology 10/20/20 12/27/22 Nita Gutierrez NP [address] [place] [address] Cardiology 12/28/22 documented as of this encounter
--- OUTSIDE RECORDS SUMMARY | 2024-07-04 16:08 | XMS_ITS | Encounter Summary ---
Author Organization [facility] Address [address] [place] [address] Care Team Providers Care Switch Technician Name Role Phone Maricarmen Prescott MD Primary Care Provider Unava ilGeoffrey Hall MD Unavailable Beatriz Talbot NP Unavailable Unavailab Beti Patrick MD Primary Care Provider [phone] Johan Griffin Primary Care Provider [phone] Nita Gutierrez FREIGHT TEAM ASSOCIATE Unavailable [phone] Ayesha Marroquin PA-C Primary Care Provider Unavail able Encounter Details Date Type Department Care Team Description 01/19/2021 Refill Medicine/Pediatrics - [address] [phone] Maricarmen Prescott MD Social History Tobacco Use [...] have Coronavirus / COVID-19? No / Unsure 01/12/2021 3:42 PM EST documented as of this encounter Plan of Treatment Not on file documented as of this encounter Visit Diagnoses Not on filedocumented in this encounter Care Teams Switch Technician Relationship Specialty Start Date End Date Maricarmen Prescott MD PCP - General 02/01/07 09/07/21 Beti Carrion MD [address] [place] [address] PCP - General Internal Medicine 10/04/21 11/20/22 Johan Griffin [address] [place], [place] 1095320 PCP - General Internal Medicine 09/08/21 10/03/21 Ayesha Marroquin PA-C [address] [place] [address] PCP - General Internal Medicine 12/29/22 Geoffrey Lynn MD Specialist Cardiovascular Disease 10/20/20 Beatriz Talbot NP Specialist Cardiology 10/20/20 12/27/22 Nita Gutierrez NP [address] [place] [address] Cardiology 12/28/22 documented as of this encounter
--- OUTSIDE RECORDS SUMMARY | 2024-07-04 16:08 | XMS_ITS | Encounter Summary ---
Author Organization [facility] Address [address] [place] [address] Care Team Providers Care Millinery Designer Name Role Phone Maricarmen Prescott MD Primary Care Provider Unava Geoffrey Guardado MD Unavailable Beatriz Talbot NP Unavailable Unavailab Beti Patrick MD Primary Care Provider [phone] Johan Griffin Primary Care Provider [phone] Nita Gutierrez NP Unavailable [phone] Ayesha Marroquin PA-C Primary Care Provider Unavail able Encounter Details Date Type Department Care Team Description 08/16/2017 [facility] Medical Records [address] [place] [address] Abstract, Provider Social History Tobacco Use Types [...] General 02/01/07 09/07/21 Beti Carrion MD [address] [place] [address] PCP - General Internal Medicine 10/04/21 11/20/22 Johan Griffin [address] [place] [address] PCP - General Internal Medicine 09/08/21 10/03/21 Ayesha Marroquin PA-C [address] [place] [address] PCP - General Internal Medicine 12/29/22 Geoffrey Lynn MD Specialist Cardiovascular Disease 10/20/20 Beatriz Talbot NP Specialist Cardiology 10/20/20 12/27/22 Nita Gutierrez NP [address] [place] [address] Cardiology 12/28/22 documented as of this encounter
--- OUTSIDE RECORDS SUMMARY | 2024-07-04 16:08 | XMS_ITS | Encounter Summary ---
Author [facility] Address [address] [place] [address] Care Team Providers Care Imcu Nurse Name Role Phone Geoffrey Lynn MD Unavailable Beatriz Talbot NP Unavailable Unavailab Beti Patrick MD Primary Care Provider [phone] Nita Gutierrez BALL TRUING MACHINE OPERATOR Unavailable [phone] Ayesha Marroquin PA-C Primary Care Provider Unavail able Reason for Visit * Reason Onset Date Comments refill request 12/03/2021 Encounter Details Date Type Department Care Team Description 12/03/2021 Refill Adult Medicine [address] [address] Beti Carrion MD [address] [place] [address] [phone] refill request Social History Tobacco Use Types [...] insurance carrier is: [place] / [place] / Product Type: MEDICARE [id number] documented in this encounter Plan of Treatment Not on file documented as of this encounter Visit Diagnoses Not on filedocumented in this encounter Care Teams Imcu Nurse Relationship Specialty Start Date End Date Beti Carrion MD [address] [place] [address] PCP - General Internal Medicine 10/04/21 11/20/22 Ayesha Marroquin PA-C [address] [place] [address] PCP - General Internal Medicine 12/29/22 Geoffrey Lynn MD Specialist Cardiovascular Disease 10/20/20 Beatriz Talbot NP Specialist Cardiology 10/20/20 12/27/22 Nita Gutierrez NP [address] [place] [address] Cardiology 12/28/22 documented as of this encounter
--- OUTSIDE RECORDS SUMMARY | 2024-07-04 16:08 | XMS_ITS | Encounter Summary ---
Author Organization [facility] Address [address] [place] [address] Care Team Providers Care Press Operator Heavy Duty Name Role Phone Maricarmen Prescott MD Primary Care Provider Unava Geoffrey Guardado MD Unavailable Beatriz Talbot NP Unavailable Unavailab Beti Patrick MD Primary Care Provider [phone] Johan Griffin Primary Care Provider [phone] Nita Gutierrez NP Unavailable [phone] Ayesha Marroquin PA-C Primary Care Provider Unavail able Encounter Details Date Type Department Care Team Description 12/15/2015 [facility] Medical Records [address] [place] [address] Abstract, Provider Social History Tobacco Use Types [...] on filedocumented in this encounter Care Teams Press Operator Heavy Duty Relationship Specialty Start Date End Date Maricarmen Prescott MD PCP - General 02/01/07 09/07/21 Beti Carrion MD [address] [place] [address] PCP - General Internal Medicine 10/04/21 11/20/22 Johan Griffin [address] [place] [address] PCP - General Internal Medicine 09/08/21 10/03/21 Ayesha Marroquin PA-C [address] [place] [address] PCP - General Internal Medicine 12/29/22 Geoffrey Lynn MD Specialist Cardiovascular Disease 10/20/20 Beatriz Talbot NP Specialist Cardiology 10/20/20 12/27/22 Nita Gutierrez NP [address] [place] [address] Cardiology 12/28/22 documented as of this encounter
--- OUTSIDE RECORDS SUMMARY | 2024-07-04 16:08 | XMS_ITS | Encounter Summary ---
Author Organization [facility] Address [address] [place] [address] Care Team Providers Care Automatic Folder Seamer Name Role Phone Maricarmen Prescott MD Primary Care Provider Unava Geoffrey Guardado MD Unavailable Beatriz Talbot NP Unavailable Unavailab Beti Patrick MD Primary Care Provider [phone] Johan Griffin Primary Care Provider [phone] Nita Gutierrez FOCUSING MACHINE OPERATOR Unavailable [phone] Ayesha Marroquin PA-C Primary Care Provider Unavail able Encounter Details Date Type Department Care Team Description 03/29/2019 Orders Only Medicine/Pediatrics - [address] [address] Maricarmen Prescott MD Preoperative examination; Screening for deficiency anemia; jail current use of anticoagulant therapy Social History [...] 03/28/2020 PROTHROMBIN TIME Lab Routine Preoperative examination jail current use of anticoagulant therapy Expected: 03/29/2019 (Approximate), Expires: 03/28/2020 HEMOGLOBIN A1C Lab Routine Preoperative examination Expected: 03/29/2019, Expires: 03/28/2020 documented as of this encounter Visit Diagnoses Diagnosis Preoperative examination Preoperative examination, unspecified Screening for deficiency anemia Screening for other and unspecified deficiency anemia crossing gateman current use of anticoagulant therapy documented in this encounter Care Teams Automatic Folder Seamer Relationship Specialty Start Date End Date Maricarmen Prescott MD PCP - General 02/01/07 09/07/21 Beti Carrion MD [address] [place] [address] PCP - General Internal Medicine 10/04/21 11/20/22 Johan Griffin [address] [place] [address] PCP - General Internal Medicine 09/08/21 10/03/21 Ayesha Marroquin PA-C [address] [place] [address] PCP - General Internal Medicine 12/29/22 Geoffrey Lynn MD Specialist Cardiovascular Disease 10/20/20 Beatriz Talbot NP Specialist Cardiology 10/20/20 12/27/22 Nita Gutierrez NP [address] [place] [address] Cardiology 12/28/22 documented as of this encounter
--- OUTSIDE RECORDS SUMMARY | 2024-07-04 16:08 | XMS_ITS | Encounter Summary ---
Author Organization [facility] Address [address] [place] [address] Care Team Providers Care Curtain Hemmer Automatic Name Role Phone Geoffrey Lynn MD Unavailable Beatriz Talbot NP Unavailable Unavailab Beti Patrick MD Primary Care Provider [phone] Nita Gutierrez PERSONAL CARE AIDE Unavailable [phone] Ayesha Marroquin PA-C Primary Care Provider Unavail able Encounter Details Date Type Department Care Team Description 08/01/2022 Mirror Machine Feeder Report Medical Records [address] [place] [address] Ayesha Marroquin PA-C Social History Tobacco Use [...] on filedocumented in this encounter Care Teams Curtain Hemmer Automatic Relationship Specialty Start Date End Date Beti Carrion MD [address] [place] [address] [phone] PCP - General Internal Medicine 10/04/21 11/20/22 Ayesha Marroquin PA-C [address] [place] [address] PCP - General Internal Medicine 12/29/22 Geoffrey Lynn MD Specialist Cardiovascular Disease 10/20/20 Beatriz Talbot NP Specialist Cardiology 10/20/20 12/27/22 Nita Gutierrez NP [address] [place] [address] Cardiology 12/28/22 documented as of this encounter
--- OUTSIDE RECORDS SUMMARY | 2024-07-04 16:08 | XMS_ITS | Encounter Summary ---
Author Organization [facility] Address [address] [place] [address] Care Team Providers Care Manager Commercial Real Estate Name Role Phone Maricarmen Prescott MD Primary Care Provider Unava Geoffrey Guardado MD Unavailable Beatriz Talbot NP Unavailable Unavailab Beti Patrick MD Primary Care Provider [phone] Johan Griffin Primary Care Provider [phone] Nita Gutierrez NP Unavailable [phone] Ayesha Marroquin PA-C Primary Care Provider Unavail able Encounter Details Date Type Department Care Team Description 02/16/2021 Orders Only Adult Medicine [address] [id number] Maricarmen Prescott MD Social History Tobacco Use [...] filedocumented in this encounter Care Teams Manager Commercial Real Estate Relationship Specialty Start Date End Date Maricarmen Prescott MD PCP - General 02/01/07 09/07/21 Beti Carrion MD [address] [place], [place] [phone] PCP - General Internal Medicine 10/04/21 11/20/22 Johan Griffin [address] [place], [place] [phone] PCP - General Internal Medicine 09/08/21 10/03/21 Ayesha Marroquin PA-C [address] [place] [address] PCP - General Internal Medicine 12/29/22 Geoffrey Lynn MD Specialist Cardiovascular Disease 10/20/20 Beatriz Talbot NP Specialist Cardiology 10/20/20 12/27/22 Nita Gutierrez NP [address] [place], [place] [phone] Cardiology 12/28/22 documented as of this encounter
--- OUTSIDE RECORDS SUMMARY | 2024-07-04 16:08 | XMS_ITS | Clinical Summary ---
Author Organization [facility] Facility Address [address] [address] Care Team Providers Care Sprinkler Fitter Helper Name Role Phone Ayesha Marroquin PA-C Primary [...] topic Insurance Medicare Medicaid [place] Care Teams Sprinkler Fitter Helper Relationship Specialty Start Date End Date Ayesha Marroquin PA-C [address] [place] [address] PCP - General Physician Cake Former 08/23/23
--- OUTSIDE RECORDS SUMMARY | 2024-07-04 16:08 | XMS_ITS | Encounter Summary ---
Author Organization [facility] Address [address] [place] [address] Care Team Providers Care Brood Station Manager Name Role Phone Maricarmen Prescott MD Primary Care Provider Unava ilGeoffrey Hall MD Unavailable Beatriz Talbot NP Unavailable Unavailab Beti Patrick MD Primary Care Provider [phone] Johan Griffin Primary Care Provider [phone] Nita Gutierrez NP Unavailable [phone] Ayesha Marroquin PA-C Primary Care Provider Unavail able Encounter Details Date Type Department Care Team Description 02/23/2021 Orders Only Medical Records [address] [place] [address] Genny Grossman MD Social History Tobacco Use [...] on filedocumented in this encounter Care Teams Brood Station Manager Relationship Specialty Start Date End Date Maricarmen Prescott MD PCP - General 02/01/07 09/07/21 Beti Carrion MD [address] [place] [address] PCP - General Internal Medicine 10/04/21 11/20/22 Johan Griffin [address] [place] [address] PCP - General Internal Medicine 09/08/21 10/03/21 Ayesha Marroquin PA-C [address] [place] [address] PCP - General Internal Medicine 12/29/22 Geoffrey Lynn MD Specialist Cardiovascular Disease 10/20/20 Beatriz Talbot NP Specialist Cardiology 10/20/20 12/27/22 Nita Gutierrez NP [address] [place] [address] Cardiology 12/28/22 documented as of this encounter
--- OUTSIDE RECORDS SUMMARY | 2024-07-04 16:08 | XMS_ITS | Encounter Summary ---
Author Organization [facility] Address [address] [place] [address] Care Team Providers Care Client Support Consultant Name Role Phone Maricarmen Prescott MD Primary Care Provider Unava Geoffrey Guardado MD Unavailable Beatriz Talbot NP Unavailable Unavailab Beti Patrick MD Primary Care Provider [phone] Johan Griffin Primary Care Provider [phone] Nita Gutierrez NP Unavailable [phone] Ayesha Marroquin PA-C Primary Care Provider Unavail able Encounter Details Date Type Department Care Team Description 03/08/2019 [facility] Medical Records [address] [place] [address] Abstract, Provider Social History Tobacco Use Types [...] on filedocumented in this encounter Care Teams Client Support Consultant Relationship Specialty Start Date End Date Maricarmen Prescott MD PCP - General 02/01/07 09/07/21 Beti Carrion MD 4 [place] [address] PCP - General Internal Medicine 10/04/21 11/20/22 Johan Griffin 4 [place] [address] PCP - General Internal Medicine 09/08/21 10/03/21 Ayesha Marroquin PA-C 4 [place] [address] PCP - General Internal Medicine 12/29/22 Geoffrey Lynn MD Specialist Cardiovascular Disease 10/20/20 Beatriz Talbot NP Specialist Cardiology 10/20/20 12/27/22 Nita Gutierrez NP 4 [place] [address] Cardiology 12/28/22 documented as of this encounter
--- OUTSIDE RECORDS SUMMARY | 2024-07-04 16:08 | XMS_ITS | Encounter Summary ---
Author Organization [facility] Address [address] [place] [address] Care Team Providers Care Sales Program Coordinator Name Role Phone Maricarmen Prescott MD Primary Care Provider Unava Geoffrey Guardado MD Unavailable Beatriz Talbot NP Unavailable Unavailab Beti Patrick MD Primary Care Provider [phone] Johan Griffin Primary Care Provider [phone] Nita Gutierrez NP Unavailable [phone] Ayesha Marroquin PA-C Primary Care Provider Unavail able Encounter Details Date Type Department Care Team Description 12/12/[address] [facility] Medical Records [address] [place] [address] Abstract, Provider Social History Tobacco Use Types [...] on filedocumented in this encounter Care Teams Sales Program Coordinator Relationship Specialty Start Date End Date Maricarmen Prescott MD PCP - General 02/01/07 09/07/21 Beti Carrion MD [address] [place] [address] PCP - General Internal Medicine 10/04/21 11/20/22 Johan Griffin 4 [place] [address] PCP - General Internal Medicine 09/08/21 10/03/21 Ayesha Marroquin PA-C [address] [place] [address] PCP - General Internal Medicine 12/29/22 Geoffrey Lynn MD Specialist Cardiovascular Disease 10/20/20 Beatriz Talbot NP Specialist Cardiology 10/20/20 12/27/22 Nita Gutierrez NP [address] [place] [address] Cardiology 12/28/22 documented as of this encounter
--- OUTSIDE RECORDS SUMMARY | 2024-07-04 16:08 | XMS_ITS | Encounter Summary ---
Author Organization [facility] Address [address] [place] [address] Care Team Providers Care High School Social Studies Tutor Name Role Phone Maricarmen Prescott MD Primary Care Provider Unava ilGeoffrey Hall MD Unavailable Beatriz Talbot NP Unavailable Unavailab Beti Patrick MD Primary Care Provider [phone] Johan Griffin Primary Care Provider [phone] Nita Gutierrez NP Unavailable [phone] Ayesha Marroquin PA-C Primary Care Provider Unavail able Encounter Details Date Type Department Care Team Description 05/25/2021 Orders Only Radiology - [address] [phone] Maricarmen Prescott MD Social History Tobacco Use [...] on filedocumented in this encounter Care Teams High School Social Studies Tutor Relationship Specialty Start Date End Date Maricarmen Prescott MD PCP - General 02/01/07 09/07/21 Beti Carrion MD [address] [place] [address] PCP - General Internal Medicine 10/04/21 11/20/22 Johan Griffin [address] [place] [address] PCP - General Internal Medicine 09/08/21 10/03/21 Ayesha Marroquin PA-C [address] [place] [address] PCP - General Internal Medicine 12/29/22 Geoffrey Lynn MD Specialist Cardiovascular Disease 10/20/20 Beatriz Talbot NP Specialist Cardiology 10/20/20 12/27/22 Nita Gutierrez NP [address] [place] [address] Cardiology 12/28/22 documented as of this encounter
--- OUTSIDE RECORDS SUMMARY | 2024-07-04 16:08 | XMS_ITS | Encounter Summary ---
Author Organization [facility] Address [address] [place] [address] Care Team Providers Care Chief Lending Officer Name Role Phone Maricarmen Prescott MD Primary Care Provider Unava Geoffrey Guardado MD Unavailable Beatriz Talbot NP Unavailable Unavailab Beti Patrick MD Primary Care Provider [phone] Johan Griffin Primary Care Provider [phone] Nita Gutierrez LOG OPERATIONS COORDINATOR Unavailable [phone] Ayesha Marroquin PA-C Primary Care Provider Unavail able Encounter Details Date Type Department Care Team Description 09/24/2018 Transfer Records Medical Records [address] [place] [address] Genny Grossman MD Social History Tobacco Use [...] filedocumented in this encounter Care Teams Chief Lending Officer Relationship Specialty Start Date End Date Maricarmen Prescott MD PCP - General 12/6/07 7/12/22 Beti Carrion MD 4 [place] [address] PCP - General Internal Medicine 10/04/21 11/20/22 Johan Griffin 4 [place], [place] [phone] PCP - General Internal Medicine 09/08/21 10/03/21 Ayesha Marroquin PA-C 4 [place] [address] PCP - General Internal Medicine 12/29/22 Geoffrey Lynn MD Specialist Cardiovascular Disease 10/20/20 Beatriz Talbot NP Specialist Cardiology 10/20/20 12/27/22 Nita Gutierrez NP 4 [place] [address] Cardiology 12/28/22 documented as of this encounter
--- OUTSIDE RECORDS SUMMARY | 2024-07-04 16:08 | XMS_ITS | Encounter Summary ---
Author Organization [facility] Address [address] [place] [address] Care Team Providers Care Operations Administrative Assistant Name Role Phone Maricarmen Prescott MD Primary Care Provider Unava ilGeoffrey Hall MD Unavailable Beatriz Talbot NP Unavailable Unavailab Beti Patrick MD Primary Care Provider [phone] Johan Griffin Primary Care Provider [phone] Nita Gutierrez NP Unavailable [phone] Ayesha Marroquin PA-C Primary Care Provider Unavail able Encounter Details Date Type Department Care Team Description 04/22/2021 [facility] Medical Records [address] [place] [address] Abstract, Provider Social History Tobacco Use Types [...] on filedocumented in this encounter Care Teams Operations Administrative Assistant Relationship Specialty Start Date End Date Maricarmen Prescott MD PCP - General 02/01/07 09/07/21 Beti Carrion MD 4 [place] [address] PCP - General Internal Medicine 10/04/21 11/20/22 Johan Griffin [address] [place] [address] PCP - General Internal Medicine 09/08/21 10/03/21 Ayesha Marroquin PA-C [address] [place] [address] PCP - General Internal Medicine 12/29/22 Geoffrey Lynn MD Specialist Cardiovascular Disease 10/20/20 Beatriz Talbot NP Specialist Cardiology 10/20/20 12/27/22 Nita Gutierrez NP 4 [place] [address] Cardiology 12/28/22 documented as of this encounter
--- OUTSIDE RECORDS SUMMARY | 2024-07-04 16:08 | XMS_ITS | Encounter Summary ---
Author Organization [facility] Address [address] [place] [address] Care Team Providers Care Bookkeeping Teacher Name Role Phone Geoffrey Lynn MD Unavailable Beatriz Talbot NP Unavailable Unavailab Beti Patrick MD Primary Care Provider [phone] Nita Gutierrez NP Unavailable [phone] Ayesha Marroquin PA-C Primary Care Provider Unavail able Reason for Visit * Reason Comments E-prescribe Rx Request Encounter Details Date Type Department Care Team Description 11/11/2022 Refill Adult Medicine [address] [address] [place], CIGARETTE TESTER [address] [place] [address] [phone] E-prescribe Rx Request Social History Tobacco Use [...] on filedocumented in this encounter Care Teams Bookkeeping Teacher Relationship Specialty Start Date End Date Beti Carrion MD [address] [place] [address] PCP - General Internal Medicine 10/04/21 11/20/22 Ayesha Marroquin PA-C [address] [place] [address] PCP - General Internal Medicine 12/29/22 Geoffrey Lynn MD Specialist Cardiovascular Disease 10/20/20 Beatriz Talbot NP Specialist Cardiology 10/20/20 12/27/22 Nita Gutierrez NP [address] [place] [address] Cardiology 12/28/22 documented as of this encounter
--- OUTSIDE RECORDS SUMMARY | 2024-07-04 16:08 | XMS_ITS | Encounter Summary ---
Author Organization [facility] Address [address] [place] [address] Care Team Providers Care Head Of Science Name Role Phone Maricarmen Prescott MD Primary Care Provider Unava Geoffrey Guardado MD Unavailable Beatriz Talbot DIRECTOR OF PHYSIOTHERAPY SERVICES Unavailable Unavailab Beti Patrick MD Primary Care Provider [phone] Johan Griffin Primary Care Provider [phone] Nita Gutierrez DIRECTOR OF PHYSIOTHERAPY SERVICES Unavailable [phone] Ayesha Marroquin PA-C Primary Care Provider Unavail able Encounter Details Date Type Department Care Team Description 01/02/2015 [facility] Medical Records [address] [place] [address] Abstract, Provider Social History Tobacco Use Types [...] on filedocumented in this encounter Care Teams Head Of Science Relationship Specialty Start Date End Date Maricarmen Prescott MD PCP - General 02/01/07 09/07/21 Beti Carrion MD [address] [place] [address] PCP - General Internal Medicine 10/04/21 11/20/22 Johan Griffin [address] [place] [address] PCP - General Internal Medicine 09/08/21 10/03/21 Ayesha Marroquin PA-C [address] [place] [address] PCP - General Internal Medicine 12/29/22 Geoffrey Lynn MD Specialist Cardiovascular Disease 10/20/20 Beatriz Talbot NP Specialist Cardiology 10/20/20 12/27/22 Nita Gutierrez NP [address] [place] [address] Cardiology 12/28/22 documented as of this encounter
--- OUTSIDE RECORDS SUMMARY | 2024-07-04 16:08 | XMS_ITS | Encounter Summary ---
Author Organization [facility] Address [address] [place] [address] Care Team Providers Care Strategic Accounts Manager Name Role Phone Maricarmen Prescott MD Primary Care Provider Unava Geoffrey Guardado MD Unavailable Beatriz Talbot NP Unavailable Unavailab Beti Patrick MD Primary Care Provider [phone] Johan Griffin Primary Care Provider [phone] Nita Gutierrez NP Unavailable [phone] Ayesha Marroquin PA-C Primary Care Provider Unavail able Reason for Visit * Reason Onset Date Comments injection 04/03/2017 Encounter Details Date Type Department Care Team Description 04/03/2017 Telephone Physiatry - [address] [address] Jhonny Grayson DO injection Social History Tobacco [...] unspecified documented in this encounter Care Teams Strategic Accounts Manager Relationship Specialty Start Date End Date Maricarmen Prescott MD PCP - General 02/01/07 09/07/21 Beti Carrion MD [address] [place] [address] PCP - General Internal Medicine 10/04/21 11/20/22 Johan Griffin [address] [place] [address] PCP - General Internal Medicine 09/08/21 10/03/21 Ayesha Marroquin PA-C [address] [place] [address] PCP - General Internal Medicine 12/29/22 Geoffrey Lynn MD Specialist Cardiovascular Disease 10/20/20 Beatriz Talbot NP Specialist Cardiology 10/20/20 12/27/22 Nita Gutierrez NP [address] [place] [address] Cardiology 12/28/22 documented as of this encounter
--- OUTSIDE RECORDS SUMMARY | 2024-07-04 16:08 | XMS_ITS | Encounter Summary ---
Author Organization [facility] Address [address] [place] [address] Care Team Providers Care Nuclear Monitoring Technician Name Role Phone Geoffrey Lynn MD Unavailable Beatriz Talbot NP Unavailable Unavailab Beti Patrick MD Primary Care Provider [phone] Nita Gutierrez NP Unavailable [phone] Ayesha Marroquin PA-C Primary Care Provider Unavail able Encounter Details Date Type Department Care Team Description 10/18/2021 [facility] Medical Records [address] [place] [id number] Abstract, Provider Social History Tobacco Use Types [...] Date/Time Associated Diagnosis Comments OUTSIDE EKG Routine 10/18/2021 documented in this encounter Results * OUTSIDE EKG (10/18/2021) Provider Abstract CARDIOLOGY documented in this encounter Visit Diagnoses Not on filedocumented in this encounter Care Teams Nuclear Monitoring Technician Relationship Specialty Start Date End Date Beti Carrion MD [address] [place] [address] PCP - General Internal Medicine 10/04/21 11/20/22 Ayesha Marroquin PA-C [address] [place] [address] PCP - General Internal Medicine 12/29/22 Geoffrey Lynn MD Specialist Cardiovascular Disease 10/20/20 Beatriz Talbot NP Specialist Cardiology 10/20/20 12/27/22 Nita Gutierrez NP [address] [place] [address] Cardiology 12/28/22 documented as of this encounter
--- OUTSIDE RECORDS SUMMARY | 2024-07-04 16:08 | XMS_ITS | Encounter Summary ---
Author Organization [facility] Address [address] [place] [address] Care Team Providers Care Church Secretary Name Role Phone Maricarmen Prescott MD Primary Care Provider Unava Geoffrey Guardado MD Unavailable Beatriz Talbot NP Unavailable Unavailab Beti Patrick MD Primary Care Provider [phone] Johan Griffin Primary Care Provider [phone] Nita Gutierrez NP Unavailable [phone] Ayesha Marroquin PA-C Primary Care Provider Unavail able Encounter Details Date Type Department Care Team Description 03/20/2017 [facility] Medical Records [address] [place] [address] Abstract, Provider Social History Tobacco Use Types [...] on filedocumented in this encounter Care Teams Church Secretary Relationship Specialty Start Date End Date Maricarmen Prescott MD PCP - General 02/01/07 09/07/21 Beti Carrion MD [address] [place] [address] PCP - General Internal Medicine 10/04/21 11/20/22 Johan Griffin [address] [place] [address] PCP - General Internal Medicine 09/08/21 10/03/21 Ayesha Marroquin PA-C [address] [place] [address] PCP - General Internal Medicine 12/29/22 Geoffrey Lynn MD Specialist Cardiovascular Disease 10/20/20 Beatriz Talbot NP Specialist Cardiology 10/20/20 12/27/22 Nita Gutierrez NP [address] [place] [address] Cardiology 12/28/22 documented as of this encounter
--- OUTSIDE RECORDS SUMMARY | 2024-07-04 16:08 | XMS_ITS | Clinical Summary ---
Author Organization [facility] Address [address] [place] [address] Care Team Providers Care Network Contract Manager Name Role Phone Maricarmen Thomas MD Primary [...] age to complete this topic Care Teams Network Contract Manager Relationship Specialty Start Date End Date Maricarmen Thomas MD PCP - General Internal Medicine 07/17/18
--- OUTSIDE RECORDS SUMMARY | 2024-07-04 16:08 | XMS_ITS | Encounter Summary ---
Author Organization [facility] Address [address] [place] [address] Care Team Providers Care Field Tech Name Role Phone Maricarmen Prescott MD Primary Care Provider Unava Geoffrey Guardado MD Unavailable Beatriz Talbot NP Unavailable Unavailab Beti Patrick MD Primary Care Provider [phone] Johan Griffin Primary Care Provider [phone] Nita Gutierrez HAND POLISHER Unavailable [phone] Ayesha Marroquin PA-C Primary Care Provider Unavail able Encounter Details Date Type Department Care Team Description 01/02/2017 Manufacturing Finance Manager Report Medical Records [address] [place] [address] Jemima Clay MD Social History Tobacco Use [...] on filedocumented in this encounter Care Teams Field Tech Relationship Specialty Start Date End Date Maricarmen Prescott MD PCP - General 02/01/07 09/07/21 Beti Carrion MD [address] [place] [address] PCP - General Internal Medicine 10/04/21 11/20/22 Johan Griffin [address] [place] [address] PCP - General Internal Medicine 09/08/21 10/03/21 Ayesha Marroquin PA-C [address] [place] [address] PCP - General Internal Medicine 12/29/22 Geoffrey Lynn MD Specialist Cardiovascular Disease 10/20/20 Beatriz Talbot NP Specialist Cardiology 10/20/20 12/27/22 Nita Gutierrez NP [address] [place] [address] Cardiology 12/28/22 documented as of this encounter
--- OUTSIDE RECORDS SUMMARY | 2024-07-04 16:08 | XMS_ITS | Encounter Summary ---
Author Organization [facility] Address [address] [place] [address] Care Team Providers Care Rack Production Worker Name Role Phone Maricarmen Prescott MD Primary Care Provider Unava Geoffrey Guardado MD Unavailable Beatriz Talbot NP Unavailable Unavailab Beti Patrick MD Primary Care Provider [phone] Johan Griffin Primary Care Provider [phone] Nita Gutierrez PROCESS PUMPER Unavailable [phone] Ayesha Marroquin PA-C Primary Care Provider Unavail able Reason for Referral * Non JESSY (Routine) - Authorized/Booked Specialty Diagnoses / Procedures Referred By Contac t Referred To Contact Pulmonology Diagnoses Dyspnea on exertion Procedures REFERRAL TO PULMONOLOGY Maricarmen Prescott MD [address] [place] [address] Pulmo/Brittney [address] [place] [address] Referral ID Status Reason Start Date Expiration Date V isits Requested Visits Authorized [id number] Authorized/B ooked 07/04/2017 07/04/2018 1 1 Reason for Visit * Reason Onset Date Comments TEST RESULTS 07/03/2017 Encounter Details Date Type Department Care Team Description 07/03/2017 Telephone Medicine/Pediatrics - [address] [phone] Maricarmen Prescott MD TEST RESULTS Social History [...] work and stress [facility] Also wanted her to know her surgery [...] abnormality documented in this encounter Care Teams Rack Production Worker Relationship Specialty Start Date End Date Maricarmen Prescott MD PCP - General 02/01/07 09/07/21 Beti Carrion MD [address] [place] [address] PCP - General Internal Medicine 10/04/21 11/20/22 Johan Griffin [address] [place] [address] PCP - General Internal Medicine 09/08/21 10/03/21 Ayesha Marroquin PA-C [address] [place] [address] PCP - General Internal Medicine 12/29/22 Geoffrey Lynn MD Specialist Cardiovascular Disease 10/20/20 Beatriz Talbot NP Specialist Cardiology 10/20/20 12/27/22 Nita Gutierrez NP [address] [place] [address] Cardiology 12/28/22 documented as of this encounter
--- OUTSIDE RECORDS SUMMARY | 2024-07-04 16:08 | XMS_ITS | Encounter Summary ---
Author Organization [facility] Address [address] [place] [address] Care Team Providers Care Tugboat Engineer Name Role Phone Maricarmen Prescott MD Primary Care Provider Unava Geoffrey Guardado MD Unavailable Beatriz Talbot NP Unavailable Unavailab Beti Patrick MD Primary Care Provider [phone] Johan Griffin Primary Care Provider [phone] Nita Gutierrez NP Unavailable [phone] Ayesha Marroquin PA-C Primary Care Provider Unavail able Encounter Details Date Type Department Care Team Description 10/20/2016 [facility] Medical Records [address] [place] [address] Abstract, Provider Social History Tobacco Use Types [...] on filedocumented in this encounter Care Teams Tugboat Engineer Relationship Specialty Start Date End Date Maricarmen Prescott MD PCP - General 02/01/07 09/07/21 Beti Carrion MD [address] [place] [address] PCP - General Internal Medicine 10/04/21 11/20/22 Johan Griffin [address] [place] [address] PCP - General Internal Medicine 09/08/21 10/03/21 Ayesha Marroquin PA-C [address] [place] [address] PCP - General Internal Medicine 12/29/22 Geoffrey Lynn MD Specialist Cardiovascular Disease 10/20/20 Beatriz Talbot NP Specialist Cardiology 10/20/20 12/27/22 Nita Gutierrez NP [address] [place] [address] Cardiology 12/28/22 documented as of this encounter
--- OUTSIDE RECORDS SUMMARY | 2024-07-04 16:08 | XMS_ITS | Encounter Summary ---
Author Organization [facility] Address [address] [place] [address] Care Team Providers Care Spinning Doffer Name Role Phone Maricarmen Prescott MD Primary Care Provider Unava ilGeoffrey Hall MD Unavailable Beatriz Talbot NP Unavailable Unavailab Beti Patrick MD Primary Care Provider [phone] Johan Griffin Primary Care Provider [phone] Nita Gutierrez EDGE RUNNER Unavailable [phone] Ayesha Marroquin PA-C Primary Care Provider Unavail able Reason for Visit * Reason Onset Date Comments refill request 01/06/2017 Encounter Details Date Type Department Care Team Description 01/06/2017 Refill Medicine/Pediatrics - [address] [address] Maricarmen Prescott MD refill request Social History [...] THE PATIENT'S LAST APPOINTMENT IN ADULT MEDICINE? [id number] WHEN WAS THE LAST TIME THE PATIENT SAW THEIR PCP? Same as above Does patient have an upcoming appointment? Yes [id number] (THE MEDICATION REQUESTED IS ON THE MED LIST ABOVE) All of the medications requested were on the CURRENT MEDS list Did you check the Pharmacy information above?: YES Patient wants: 30 -day supply Is this a mail order prescription request ? NO Patients current insurance carrier is: [place] / [place] / Product Type: MEDICARE [id number] documented in this encounter Plan of Treatment Not on file documented as of this encounter Visit Diagnoses Not on filedocumented in this encounter Care Teams Spinning Doffer Relationship Specialty Start Date End Date Maricarmen Prescott MD PCP - General 02/01/07 09/07/21 Beti Carrion MD [address] [place] [address] PCP - General Internal Medicine 10/04/21 11/20/22 Johan Griffin [address] [place] [address] PCP - General Internal Medicine 09/08/21 10/03/21 Ayesha Marroquin PA-C [address] [place] [address] PCP - General Internal Medicine 12/29/22 Geoffrey Lynn MD Specialist Cardiovascular Disease 10/20/20 Beatriz Talbot NP Specialist Cardiology 10/20/20 12/27/22 Nita Gutierrez NP [address] [place] [address] Cardiology 12/28/22 documented as of this encounter
--- OUTSIDE RECORDS SUMMARY | 2024-07-04 16:08 | XMS_ITS | Encounter Summary ---
Author Organization [facility] Address [address] [place] [address] Care Team Providers Care Tube Draw Helper Name Role Phone Maricarmen Prescott MD Primary Care Provider Unava ilGeoffrey Hall MD Unavailable Beatriz Talbot NP Unavailable Unavailab Beti Patrick MD Primary Care Provider [phone] Johan Griffin Primary Care Provider [phone] Nita Gutierrez HEALTH PROFESSOR Unavailable [phone] Ayesha Marroquin PA-C Primary Care Provider Unavail able Encounter Details Date Type Department Care Team Description 02/18/2021 [facility] Medical Records [address] [place] [address] Genny Grossman MD Social History Tobacco Use [...] on filedocumented in this encounter Care Teams Tube Draw Helper Relationship Specialty Start Date End Date Maricarmen Prescott MD PCP - General 02/01/07 09/07/21 Beti Carrion MD [address] [place] [address] PCP - General Internal Medicine 10/04/21 11/20/22 Johan Griffin [address] [place] [address] PCP - General Internal Medicine 09/08/21 10/03/21 Ayesha Marroquin PA-C [address] [place] [address] PCP - General Internal Medicine 12/29/22 Geoffrey Lynn MD Specialist Cardiovascular Disease 10/20/20 Beatriz Talbot NP Specialist Cardiology 10/20/20 12/27/22 Nita Gutierrez NP [address] [place] [address] Cardiology 12/28/22 documented as of this encounter
--- OUTSIDE RECORDS SUMMARY | 2024-07-04 16:08 | XMS_ITS | Encounter Summary ---
[facility] Organization [facility] Address [address] [place] [address] Care Team Providers Care Bow Repairer Custom Name Role Phone Geoffrey Lynn MD Unavailable Beatriz Talbot NP Unavailable Unavailab Beti Patrick MD Primary Care Provider [phone] Nita Gutierrez SIMULATION ENGINEER Unavailable [phone] Ayesha Marroquin PA-C Primary Care Provider Unavail able Reason for Visit * Reason Comments E-prescribe Rx Request Encounter Details Date Type Department Care Team Description 12/27/2021 Refill Adult Medicine [address] [id number] Beti Carrion MD [address] [place] [id number] E-prescribe Rx Request Social History Tobacco Use [...] ?? Patients current insurance carrier is: [place] / [place] / Product Type: MEDICARE [id number] ?? documented in this encounter Plan of Treatment Not on file documented as of this encounter Visit Diagnoses Not on filedocumented in this encounter Care Teams Bow Repairer Custom Relationship Specialty Start Date End Date Beti Carrion MD [address] [place] [address] PCP - General Internal Medicine 10/04/21 11/20/22 Ayesha Marroquin PA-C [address] [place] [address] PCP - General Internal Medicine 12/29/22 Geoffrey Lynn MD Specialist Cardiovascular Disease 10/20/20 Beatriz Talbot NP Specialist Cardiology 10/20/20 12/27/22 Nita Gutierrez NP [address] [place] [address] Cardiology 12/28/22 documented as of this encounter
--- OUTSIDE RECORDS SUMMARY | 2024-07-04 16:08 | XMS_ITS | Encounter Summary ---
[facility] Organization [facility] Address [address] [place] [address] Care Team Providers Care Water Pollution Specialist Name Role Phone Maricarmen Prescott MD Primary Care Provider Unava Geoffrey Guardado MD Unavailable Beatriz Talbot NP Unavailable Unavailab Beti Patrick MD Primary Care Provider [phone] Johan Griffin Primary Care Provider [phone] Nita Gutierrez NP Unavailable [phone] Ayesha Marroquin PA-C Primary Care Provider Unavail able Encounter Details Date Type Department Care Team Description 02/07/2019 [facility] Medical Records [address] [place] [address] Abstract, Provider Social History Tobacco Use Types [...] on filedocumented in this encounter Care Teams Water Pollution Specialist Relationship Specialty Start Date End Date Maricarmen Prescott MD PCP - General 02/01/07 09/07/21 Beti Carrion MD [address] [place] [address] PCP - General Internal Medicine 10/04/21 11/20/22 Johan Griffin [address] [place] [address] PCP - General Internal Medicine 09/08/21 10/03/21 Ayesha Marroquin PA-C [address] [place] [address] PCP - General Internal Medicine 12/29/22 Geoffrey Lynn MD Specialist Cardiovascular Disease 10/20/20 Beatriz Talbot NP Specialist Cardiology 10/20/20 12/27/22 Nita Gutierrez NP [address] [place] [address] Cardiology 12/28/22 documented as of this encounter
--- OUTSIDE RECORDS SUMMARY | 2024-07-04 16:08 | XMS_ITS | Encounter Summary ---
Author Organization [facility] Address [address] [place] [address] Care Team Providers Care Residency Coordinator Name Role Phone Maricarmen Prescott MD Primary Care Provider Unava Geoffrey Guardado MD Unavailable Beatriz Talbot NP Unavailable Unavailab Beti Patrick MD Primary Care Provider [phone] Johan Griffin Primary Care Provider [phone] Nita Gutierrez STUDY SPECIALIST Unavailable [phone] Ayesha Marroquin PA-C Primary Care Provider Unavail able Reason for Visit * Reason Onset Date Comments dizziness 05/12/2019 Encounter Details Date Type Department Care Team Description 05/12/2019 Telephone Adult Urgent Care - [address] [address] Maricarmen Prescott MD dizziness Social History Tobacco [...] following questions. ??? Have you traveled to [place], [place], [place], [place], [place], or [place] in the last 14 days? NO ??? Have you had close contact with someone with Coronavirus in the last 14 days? NO If YES to either, send the call to triage and do not book If pain or injury related was it due to an accident at work or from a motor vehicle accident? NO If yes, gather 3rd constitution party insurance information Date of accident/Injury: How long has patient had these symptoms?: since yesterday PCP: Maricarmen Prescott [place] / [place] / Product Type: MEDICARE [id number] documented in this encounter Plan of Treatment Not on file documented as of this encounter Visit Diagnoses Not on filedocumented in this encounter Care Teams Residency Coordinator Relationship Specialty Start Date End Date Maricarmen Prescott MD PCP - General 02/01/07 09/07/21 Beti Carrion MD [address] [place] [address] PCP - General Internal Medicine 10/04/21 11/20/22 Johan Griffin [address] [place] [address] PCP - General Internal Medicine 09/08/21 10/03/21 Ayesha Marroquin PA-C [address] [place] [address] PCP - General Internal Medicine 12/29/22 Geoffrey Lynn MD Specialist Cardiovascular Disease 10/20/20 Beatriz Talbot NP Specialist Cardiology 10/20/20 12/27/22 Nita Gutierrez NP [address] [place] [address] Cardiology 12/28/22 documented as of this encounter
--- OUTSIDE RECORDS SUMMARY | 2024-07-04 16:08 | XMS_ITS | Encounter Summary ---
Author Organization [facility] Address [address] [place] [address] Care Team Providers Care Surface Grinder Name Role Phone Maricarmen Prescott MD Primary Care Provider Unava Geoffrey Guardado MD Unavailable Beatriz Talbot NP Unavailable Unavailab Beti Patrick MD Primary Care Provider [phone] Johan Griffin Primary Care Provider [phone] Nita Gutierrez KICKBOXING INSTRUCTOR Unavailable [phone] Ayesha Marroquin PA-C Primary Care Provider Unavail able Reason for Visit * Reason Onset Date Comments loss of appetite 07/07/2021 Blood Pressure Low 07/07/2021 Encounter Details Date Type Department Care Team Description 07/07/2021 Telephone Adult Medicine [address] [phone] Maricarmen Prescott MD loss of appetite; Blood [...] traveled recently to another state outside of [place], [place], [place], [place], [place], [place], [place]? NO o If yes, did you [...] symptoms?: 2 days PCP: Maricarmen Prescott [place] / [place] / Product Type: MEDICARE [id number] documented in this encounter Plan of Treatment Not on file documented as of this encounter Visit Diagnoses Not on filedocumented in this encounter Care Teams Surface Grinder Relationship Specialty Start Date End Date Maricarmen Prescott MD PCP - General 02/01/07 09/07/21 Beti Carrion MD [address] [place] [address] PCP - General Internal Medicine 10/04/21 11/20/22 Johan Griffin [address] [place] [address] PCP - General Internal Medicine 09/08/21 10/03/21 Ayesha Marroquin PA-C [address] [place] [address] PCP - General Internal Medicine 12/29/22 Geoffrey Lynn MD Specialist Cardiovascular Disease 10/20/20 Beatriz Talbot NP Specialist Cardiology 10/20/20 12/27/22 Nita Gutierrez NP [address] [place] [address] Cardiology 12/28/22 documented as of this encounter
--- OUTSIDE RECORDS SUMMARY | 2024-07-04 16:08 | XMS_ITS | Encounter Summary ---
Author Organization [facility] Address [address] [place] [address] Care Team Providers Care Digital Account Manager Name Role Phone Maricarmen Prescott MD Primary Care Provider Unava ilGeoffrey Hall MD Unavailable Beatriz Talbot NP Unavailable Unavailab Beti Patrick MD Primary Care Provider [phone] Johan Griffin Primary Care Provider [phone] Nita Gutierrez NP Unavailable [phone] Ayesha Marroquin PA-C Primary Care Provider Unavail able Encounter Details Date Type Department Care Team Description 09/06/2010 [facility] Medical Records [address] [place] [address] Brandon Pimentel MD [address] [place] [address] Social History Tobacco Use Types Packs/Day Years [...] on filedocumented in this encounter Care Teams Digital Account Manager Relationship Specialty Start Date End Date Maricarmen Prescott MD PCP - General 02/01/07 09/07/21 Beti Carrion MD [address] [place] [address] PCP - General Internal Medicine 10/04/21 11/20/22 Johan Griffin [address] [place] [address] PCP - General Internal Medicine 09/08/21 10/03/21 Ayesha Marroquin PA-C [address] [place] [address] PCP - General Internal Medicine 12/29/22 Geoffrey Lynn MD Specialist Cardiovascular Disease 10/20/20 Beatriz Talbot NP Specialist Cardiology 10/20/20 12/27/22 Nita Gutierrez NP [address] [place] [address] Cardiology 12/28/22 documented as of this encounter
--- OUTSIDE RECORDS SUMMARY | 2024-07-04 16:08 | XMS_ITS | Encounter Summary ---
Author Organization [facility] Address [address] [place] [address] Care Team Providers Care Urgent Care Technician Name Role Phone Maricarmen Prescott MD Primary Care Provider Unava Geoffrey Guardado MD Unavailable Beatriz Talbot NP Unavailable Unavailab Beti Patrick MD Primary Care Provider [phone] Johan Griffin Primary Care Provider [phone] Nita Gutierrez NP Unavailable [phone] Ayesha Marroquin PA-C Primary Care Provider Unavail able Encounter Details Date Type Department Care Team Description 06/28/2021 [facility] Medical Records [address] [place] [address] Abstract, Provider Social History Tobacco Use Types [...] Date/Time Associated Diagnosis Comments OUTSIDE LAB Routine 06/28/2021 documented in this encounter Results * OUTSIDE LAB (06/28/2021) Provider Abstract LAB documented in this encounter Visit Diagnoses Not on filedocumented in this encounter Care Teams Urgent Care Technician Relationship Specialty Start Date End Date Maricarmen Prescott MD PCP - General 02/01/07 09/07/21 Beti Carrion MD [address] [place] [address] PCP - General Internal Medicine 10/04/21 11/20/22 Johan Griffin [address] [place] [address] PCP - General Internal Medicine 09/08/21 10/03/21 Ayesha Marroquin PA-C [address] [place] [address] PCP - General Internal Medicine 12/29/22 Geoffrey Lynn MD Specialist Cardiovascular Disease 10/20/20 Beatriz Talbot NP Specialist Cardiology 10/20/20 12/27/22 Nita Gutierrez NP [address] [place] [address] Cardiology 12/28/22 documented as of this encounter
--- OUTSIDE RECORDS SUMMARY | 2024-07-04 16:08 | XMS_ITS | Encounter Summary ---
Author Organization [facility] Address [address] [place] [address] Care Team Providers Care Coat Cutter Name Role Phone Geoffrey Lynn MD Unavailable Beatriz Talbot NP Unavailable Unavailab Beti Patrick MD Primary Care Provider [phone] Nita Gutierrez TOLL LINEMAN Unavailable [phone] Ayesha Marroquin PA-C Primary Care Provider Unavail able Encounter Details Date Type Department Care Team Description 12/23/2021 Refrigeration Service Technician Report Medical Records [address] [place] [address] Kristi Contreras MD Social History Tobacco Use [...] on filedocumented in this encounter Care Teams Coat Cutter Relationship Specialty Start Date End Date Beti Carrion MD [address] [place] [address] PCP - General Internal Medicine 10/04/21 11/20/22 Ayesha Marroquin PA-C [address] [place] [address] PCP - General Internal Medicine 12/29/22 Geoffrey Lynn MD Specialist Cardiovascular Disease 10/20/20 Beatriz Talbot NP Specialist Cardiology 10/20/20 12/27/22 Nita Gutierrez NP [address] [place] [address] Cardiology 12/28/22 documented as of this encounter
--- OUTSIDE RECORDS SUMMARY | 2024-07-04 16:08 | XMS_ITS | Encounter Summary ---
Author Organization [facility] Address [address] [place] [address] Care Team Providers Care Life Sciences Director Name Role Phone Geoffrey Lynn MD Unavailable Beatriz Talbot NP Unavailable Unavailab Beti Patrick MD Primary Care Provider [phone] Nita Gutierrez NP Unavailable [phone] Ayesha Marroquin PA-C Primary Care Provider Unavail able Encounter Details Date Type Department Care Team Description 08/23/2022 [facility] Medical Records [address] [place] [address] Marco Mc Social History Tobacco Use Types [...] filedocumented in this encounter Care Teams Life Sciences Director Relationship Specialty Start Date End Date Beti Carrion MD [address] [place] [address] PCP - General Internal Medicine 10/04/21 11/20/22 Ayesha Marroquin PA-C [address] [place] [address] PCP - General Internal Medicine 12/29/22 Geoffrey Lynn MD Specialist Cardiovascular Disease 10/20/20 Beatriz Talbot NP Specialist Cardiology 10/20/20 12/27/22 Nita Gutierrez NP [address] [place] [address] Cardiology 12/28/22 documented as of this encounter
--- OUTSIDE RECORDS SUMMARY | 2024-07-04 16:08 | XMS_ITS | Encounter Summary ---
Author Organization [facility] Address [address] [place] [address] Care Team Providers Care Automotive Parts Specialist Name Role Phone Maricarmen Prescott MD Primary Care Provider Unava Geoffrey Guardado MD Unavailable Beatriz Talbot NP Unavailable Unavailab Beti Patrick MD Primary Care Provider [phone] Johan Griffin Primary Care Provider [phone] Nita Gutierrez NP Unavailable [phone] Ayesha Marroquin PA-C Primary Care Provider Unavail able Encounter Details Date Type Department Care Team Description 07/13/2021 [facility] Medical Records [address] [place] [address] Abstract, Provider Social History Tobacco Use Types [...] on filedocumented in this encounter Care Teams Automotive Parts Specialist Relationship Specialty Start Date End Date Maricarmen Prescott MD PCP - General 02/01/07 09/07/21 Beti Carrion MD [address] [place] [address] PCP - General Internal Medicine 10/04/21 11/20/22 Johan Griffin [address] [place] [address] PCP - General Internal Medicine 09/08/21 10/03/21 Ayesha Marroquin PA-C [address] [place] [address] PCP - General Internal Medicine 12/29/22 Geoffrey Lynn MD Specialist Cardiovascular Disease 10/20/20 Beatriz Talbot NP Specialist Cardiology 10/20/20 12/27/22 Nita Gutierrez NP [address] [place] [address] Cardiology 12/28/22 documented as of this encounter
--- OUTSIDE RECORDS SUMMARY | 2024-07-04 16:08 | XMS_ITS | Encounter Summary ---
Author Organization [facility] Address [address] [place] [address] Care Team Providers Care Manager Business Intelligence Name Role Phone Maricarmen Prescott MD Primary Care Provider Unava ilable Geoffrey Lynn MD Unavailable Beatriz Talbot NP Unavailable Unavailab Beti Patrick MD Primary Care Provider [phone] Johan Griffin Primary Care Provider [phone] Nita Gutierrez NP Unavailable [phone] Ayesha Marroquin PA-C Primary Care Provider Unavail able Reason for Visit * Reason Onset Date Comments Provider Call Back 11/08/2017 Encounter Details Date Type Department Care Team Description 11/08/2017 Telephone Pulmonology - [place] [address] [facility] [address] [place] [address] Tech, Pulmo/Lina [address] [facility] [address] [place] [address] Provider Call Back Social History [...] filedocumented in this encounter Care Teams Manager Business Intelligence Relationship Specialty Start Date End Date Maricarmen Prescott MD PCP - General 02/01/07 09/07/21 Beti Carrion MD [address] [place] [address] PCP - General Internal Medicine 10/04/21 11/20/22 Johan Griffin [address] [place] [address] PCP - General Internal Medicine 09/08/21 10/03/21 Ayesha Marroquin PA-C [address] [place] [address] PCP - General Internal Medicine 12/29/22 Geoffrey Lynn MD Specialist Cardiovascular Disease 10/20/20 Beatriz Talbot NP Specialist Cardiology 10/20/20 12/27/22 Nita Gutierrez NP [address] [place] [address] Cardiology 12/28/22 documented as of this encounter
--- OUTSIDE RECORDS SUMMARY | 2024-07-04 16:08 | XMS_ITS | Encounter Summary ---
Author Organization [facility] Address [address] [place] [address] Care Team Providers Care Bridge Game Director Name Role Phone Geoffrey Lynn MD Unavailable Beatriz Talbot NP Unavailable Unavailab Beti Patrick MD Primary Care Provider [phone] Nita Gutierrez NP Unavailable [phone] Ayesha Marroquin PA-C Primary Care Provider Unavail able Encounter Details Date Type Department Care Team Description 08/16/2022 [facility] Medical Records [address] [place] [address] Ayesha Marroquin PA-C Social History Tobacco Use [...] on filedocumented in this encounter Care Teams Bridge Game Director Relationship Specialty Start Date End Date Beti Carrion MD [address] [place] [address] PCP - General Internal Medicine 10/04/21 11/20/22 Ayesha Marroquin PA-C [address] [place] [address] PCP - General Internal Medicine 12/29/22 Geoffrey Lynn MD Specialist Cardiovascular Disease 10/20/20 Beatriz Talbot NP Specialist Cardiology 10/20/20 12/27/22 Nita Gutierrez NP [address] [place] [address] Cardiology 12/28/22 documented as of this encounter
--- OUTSIDE RECORDS SUMMARY | 2024-07-04 16:08 | XMS_ITS | Encounter Summary ---
Author Organization [facility] Address [address] [place] [address] Care Team Providers Care Machine Bookkeeper Name Role Phone Maricarmen Prescott MD Primary Care Provider Unava Geoffrey Guardado MD Unavailable Beatriz Talbot NP Unavailable Unavailab Beti Patrick MD Primary Care Provider [phone] Johan Griffin Primary Care Provider [phone] Nita Gutierrez NP Unavailable [phone] Ayesha Marroquin PA-C Primary Care Provider Unavail able Encounter Details Date Type Department Care Team Description 09/12/2018 [facility] Medical Records [address] [place] [address] Abstract, Provider Social History Tobacco Use Types [...] filedocumented in this encounter Care Teams Machine Bookkeeper Relationship Specialty Start Date End Date Maricarmen Prescott MD PCP - General 02/01/07 09/07/21 Beti Carrion MD [address] [place] [address] PCP - General Internal Medicine 10/04/21 11/20/22 Johan Griffin [address] [place] [address] PCP - General Internal Medicine 09/08/21 10/03/21 Ayesha Marroquin PA-C [address] [place] [address] PCP - General Internal Medicine 12/29/22 Geoffrey Lynn MD Specialist Cardiovascular Disease 10/20/20 Beatriz Talbot NP Specialist Cardiology 10/20/20 12/27/22 Nita Gutierrez NP [address] [place] [address] Cardiology 12/28/22 documented as of this encounter
--- OUTSIDE RECORDS SUMMARY | 2024-07-04 16:08 | XMS_ITS | Encounter Summary ---
Author Organization [facility] Address [address] [place] [address] Care Team Providers Care Curing Supervisor Name Role Phone Maricarmen Prescott MD Primary Care Provider Unava Geoffrey Guardado MD Unavailable Beatriz Talbot NP Unavailable Unavailab Beti Patrick MD Primary Care Provider [phone] Johan Griffin Primary Care Provider [phone] Nita Gutierrez WOOD FINISHER APPRENTICE Unavailable [phone] Ayesha Marroquin PA-C Primary Care Provider Unavail able Encounter Details Date Type Department Care Team Description 11/26/2013 [facility] Medical Records [address] [place] [address] Elias Daniels Social History Tobacco Use Types [...] on filedocumented in this encounter Care Teams Curing Supervisor Relationship Specialty Start Date End Date Maricarmen Prescott MD PCP - General 02/01/07 09/07/21 Beti Carrion MD [address] [place] [address] PCP - General Internal Medicine 10/04/21 11/20/22 Johan Griffin [address] [place] [address] PCP - General Internal Medicine 09/08/21 10/03/21 Ayesha Mraroquin PA-C [address] [place] [address] PCP - General Internal Medicine 12/29/22 Geoffrey Lynn MD Specialist Cardiovascular Disease 10/20/20 Beatriz Talbot NP Specialist Cardiology 10/20/20 12/27/22 Nita Gutierrez NP [address] [place] [address] Cardiology 12/28/22 documented as of this encounter
--- OUTSIDE RECORDS SUMMARY | 2024-07-04 16:08 | XMS_ITS | Encounter Summary ---
Author Organization [facility] Address [address] [place] [address] Care Team Providers Care Internal Medicine Veterinary Technician Name Role Phone Maricarmen Prescott MD Primary Care Provider Unava ilGeoffrey Hall MD Unavailable Beatriz Talbot NP Unavailable Unavailab Beti Patrick MD Primary Care Provider [phone] Johan Griffin Primary Care Provider [phone] Nita Gutierrez NP Unavailable [phone] Ayesha Marroquin PA-C Primary Care Provider Unavail able Reason for Visit * Reason Onset Date Comments Appointment Cancelled 12/14/2018 Encounter Details Date Type Department Care Team Description 12/14/2018 Telephone Gastroenterology - [place] [address] [facility] [address] [place] [phone] Michel Higuera PA-C [address] [address] Appointment Cancelled Social History Tobacco Use Types Packs/Day Years [...] Miscellaneous Notes * Telephone Encounter - Jerilyn Cabral - 12/14/2018 4:07 PM EDT provider unavailable 12/19/18, left message to reschedule. Please transfer documented in this encounter Plan of Treatment Not on file documented as of this encounter Visit Diagnoses Not on filedocumented in this encounter Care Teams Internal Medicine Veterinary Technician Relationship Specialty Start Date End Date Maricarmen Prescott MD PCP - General 02/01/07 09/07/21 Beti Carrion MD [address] [place] [address] PCP - General Internal Medicine 10/04/21 11/20/22 Johan Girffin [address] [place] [address] PCP - General Internal Medicine 09/08/21 10/03/21 Ayesha Marroquin PA-C [address] [place] [address] PCP - General Internal Medicine 12/29/22 Geoffrey Lynn MD Specialist Cardiovascular Disease 10/20/20 Beatriz Talbot NP Specialist Cardiology 10/20/20 12/27/22 Nita Gutierrez NP [address] [place] [address] Cardiology 12/28/22 documented as of this encounter
--- OUTSIDE RECORDS SUMMARY | 2024-07-04 16:08 | XMS_ITS | Encounter Summary ---
Author Organization [facility] Address [address] [place] [address] Care Team Providers Care Search Advertising Strategist Name Role Phone Maricarmen Prescott MD Primary Care Provider Unava Geoffrey Guardado MD Unavailable Beatriz Talbot NP Unavailable Unavailab Beti Patrick MD Primary Care Provider [phone] Johan Griffin Primary Care Provider [phone] Nita Gutierrez NP Unavailable [phone] Ayesha Marroquin PA-C Primary Care Provider Unavail able Encounter Details Date Type Department Care Team Description 05/16/2017 Business Doc Medical Records [address] [place] [address] Abstract, Provider Social History Tobacco Use Types [...] on filedocumented in this encounter Care Teams Search Advertising Strategist Relationship Specialty Start Date End Date Maricarmen Prescott MD PCP - General 02/01/07 09/07/21 Beti Carrion MD [address] [place] [address] PCP - General Internal Medicine 10/04/21 11/20/22 Johan Griffin [address] [place] [address] PCP - General Internal Medicine 09/08/21 10/03/21 Ayesha Marroquin PA-C [address] [place] [address] PCP - General Internal Medicine 12/29/22 Geoffrey Lynn MD Specialist Cardiovascular Disease 10/20/20 Beatriz Talbot NP Specialist Cardiology 10/20/20 12/27/22 Nita Gutierrez NP [address] [place] [address] Cardiology 12/28/22 documented as of this encounter
--- OUTSIDE RECORDS SUMMARY | 2024-07-04 16:08 | XMS_ITS | Encounter Summary ---
Author Organization [facility] Address [address] [place] [address] Care Team Providers Care Research Specialist Name Role Phone Maricarmen Prescott MD Primary Care Provider Unava ilGeoffrey Hall MD Unavailable Beatriz Talbot NP Unavailable Unavailab Beti Patrick MD Primary Care Provider [phone] Johan Griffin Primary Care Provider [phone] Nita Gutierrez NP Unavailable [phone] Ayesha Marroquin PA-C Primary Care Provider Unavail able Reason for Visit * Reason Onset Date Comments refill request 07/24/2014 Encounter Details Date Type Department Care Team Description 07/24/2014 Refill Medicine/Pediatrics - [address] [phone] Maricarmen Prescott MD refill request Social History [...] JOSÉ MIGUEL TAYLOR / Plan: [facility] $25/$35 [place]/ Product Type: OTHER documented in this encounter Plan of Treatment Not on file documented as of this encounter Visit Diagnoses Not on filedocumented in this encounter Care Teams Research Specialist Relationship Specialty Start Date End Date Maricarmen Prescott MD PCP - General 02/01/07 09/07/21 Beti Carrion MD [address] [place] [address] [id number] PCP - General Internal Medicine 10/04/21 11/20/22 Johan Griffin [address] [place] [address] PCP - General Internal Medicine 09/08/21 10/03/21 Ayesha Marroquin PA-C [address] [place] [address] PCP - General Internal Medicine 12/29/22 Geoffrey Lynn MD Specialist Cardiovascular Disease 10/20/20 Beatriz Talbot NP Specialist Cardiology 10/20/20 12/27/22 Nita Gutierrez NP [address] [place] [address] Cardiology 12/28/22 documented as of this encounter
--- OUTSIDE RECORDS SUMMARY | 2024-07-04 16:08 | XMS_ITS | Encounter Summary ---
Author Organization [facility] Address [address] [place] [address] Care Team Providers Care Child Care Name Role Phone Geoffrey Lynn MD Unavailable Beatriz Talbot NP Unavailable Unavailab Beti Patrick MD Primary Care Provider [phone] Nita Gutierrez MORTGAGE LOAN INTERVIEWER Unavailable [phone] Ayesha Marroquin PA-C Primary Care Provider Unavail able Encounter Details Date Type Department Care Team Description 12/09/2021 Business Relationship Manager Report Medical Records [address] [place] [address] Rafael Chamorro PA-C Social History Tobacco Use [...] in this encounter Care Teams Child Care Relationship Specialty Start Date End Date Beti Carrion MD [address] [place] [address] PCP - General Internal Medicine 10/04/21 11/20/22 Ayesha Marroquin PA-C [address] [place] [address] PCP - General Internal Medicine 12/29/22 Geoffrey Lynn MD Specialist Cardiovascular Disease 10/20/20 Beatriz Talbot NP Specialist Cardiology 10/20/20 12/27/22 Nita Gutierrez NP [address] [place] [address] Cardiology 12/28/22 documented as of this encounter
--- OUTSIDE RECORDS SUMMARY | 2024-07-04 16:08 | XMS_ITS | Encounter Summary ---
Author Organization [facility] Address [address] [place] [address] Care Team Providers Care Business Development Specialist Name Role Phone Geoffrey Lynn MD Unavailable Beatriz Talbot NP Unavailable Unavailab Beti Patrick MD Primary Care Provider [phone] Nita Gutierrez ZYGLO INSPECTOR Unavailable [phone] Ayesha Marroquin PA-C Primary Care Provider Unavail able Reason for Visit * Reason Onset Date Comments other 12/03/2021 chest tightness, sob,ECHO results Encounter Details Date Type Department Care Team Description 12/03/2021 Telephone Cardio PVCA Diag Testing [address] [facility] [address] [place] [address] Geoffrey Lynn MD [address] [place] [address] other (chest tightness,sob,ECHO results) Social History Tobacco [...] them. Please give patient a call at [phone] documented in this encounter Plan of Treatment Not on file documented as of this encounter Visit Diagnoses Not on filedocumented in this encounter Care Teams Business Development Specialist Relationship Specialty Start Date End Date Beti Carrion MD [address] [place] [address] PCP - General Internal Medicine 10/04/21 11/20/22 Ayesha Marroquin PA-C [address] [place] [address] PCP - General Internal Medicine 12/29/22 Geoffrey Lynn MD Specialist Cardiovascular Disease 10/20/20 Beatriz Talbot NP Specialist Cardiology 10/20/20 12/27/22 Nita Gutierrez NP [address] [place] [address] Cardiology 12/28/22 documented as of this encounter
--- OUTSIDE RECORDS SUMMARY | 2024-07-04 16:08 | XMS_ITS | Encounter Summary ---
Author Organization [facility] Address [address] [place] [address] Care Team Providers Care Dependency Program Director Name Role Phone Maricarmen Prescott MD Primary Care Provider Unava Geoffrey Guardado MD Unavailable Beatriz Talbot DRYWALL TAPER HELPER Unavailable Unavailab Beti Patrick MD Primary Care Provider [phone] Johan Griffin Primary Care Provider [phone] Nita Gutierrez DRYWALL TAPER HELPER Unavailable [phone] Ayesha Marroquin PA-C Primary Care Provider Unavail able Encounter Details Date Type Department Care Team Description 08/05/2013 Trimmer Sorter Report Medical Records [address] [place] [address] Hever Foster MD Social History Tobacco Use [...] on filedocumented in this encounter Care Teams Dependency Program Director Relationship Specialty Start Date End Date Maricarmen Prescott MD PCP - General 02/01/07 09/07/21 Beti Carrion MD [address] [place] [address] PCP - General Internal Medicine 10/04/21 11/20/22 Johan Griffin [address] [place] [address] PCP - General Internal Medicine 09/08/21 10/03/21 Ayesha Marroquin PA-C [address] [place] [address] PCP - General Internal Medicine 12/29/22 Geoffrey Lynn MD Specialist Cardiovascular Disease 10/20/20 Beatriz Talbot NP Specialist Cardiology 10/20/20 12/27/22 Nita Gutierrez NP [address] [place] [address] Cardiology 12/28/22 documented as of this encounter
--- OUTSIDE RECORDS SUMMARY | 2024-07-04 16:09 | XMS_ITS | Encounter Summary ---
Author Organization [facility] Address [address] [place] [address] Care Team Providers Care Balloon Artist Name Role Phone Maricarmen Prescott MD Primary Care Provider Unava ilGeoffrey Hall MD Unavailable Beatriz Talbot NP Unavailable Unavailab Beti Patrick MD Primary Care Provider [phone] Johan Griffin Primary Care Provider [phone] Nita Gutierrez WEIGHT LOSS PHYSICIAN Unavailable [phone] Ayesha Marroquin PA-C Primary Care Provider Unavail able Reason for Visit * Reason Onset Date Comments Medication 01/14/2020 Encounter Details Date Type Department Care Team Description 01/14/2020 Telephone Medicine/Pediatrics - [address] [address] Maricarmen Prescott MD Medication Social History Tobacco [...] encounter Miscellaneous Notes * Telephone Encounter - Holley Cantu L.P.N. - 01/16/2020 11:56 AM EST I tried to contact you today but I was not able to reach you by phone. Please call me at [phone] Thank you, KING Babb, Adult Medicine Triage. REviewed chart and noted that this scri pt was sent to the pharmacy 01/14/2020. Just confirming pt is aware * Telephone Encounter - Jerilyn Beltran - 01/14/2020 1:44 PM EST Pt calling in states she has been w/out her lisinopril (PRINIVIL,ZESTRIL) 10 MG tablet Since last and is concerned about the effects of being w/out She is Requesting a cb from nursing to Advise. documented in this encounter Plan of Treatment Not on file documented as of this encounter Visit Diagnoses Not on filedocumented in this encounter Care Teams Balloon Artist Relationship Specialty Start Date End Date Maricarmen Prescott MD PCP - General 02/01/07 09/07/21 Beti Carrion MD [address] [place] [address] PCP - General Internal Medicine 10/04/21 11/20/22 Johan Griffin [address] [place] [address] PCP - General Internal Medicine 09/08/21 10/03/21 Ayesha Marroquin PA-C [address] [place] [address] PCP - General Internal Medicine 12/29/22 Geoffrey Lynn MD Specialist Cardiovascular Disease 10/20/20 Beatriz Talbot NP Specialist Cardiology 10/20/20 12/27/22 Nita Gutierrez NP [address] [place] [address] Cardiology 12/28/22 documented as of this encounter
--- OUTSIDE RECORDS SUMMARY | 2024-07-04 16:09 | XMS_ITS | Encounter Summary ---
Author Organization [facility] Address [address] [place] [address] Care Team Providers Care Global Technical Writer Name Role Phone Maricarmen Prescott MD Primary Care Provider Unava ilGeoffrey Hall MD Unavailable Beatriz Talbot NP Unavailable Unavailab Beti Patrick MD Primary Care Provider [phone] Johan Griffin Primary Care Provider [phone] Nita Gutierrez NP Unavailable [phone] Ayesha Marroquin PA-C Primary Care Provider Unavail able Encounter Details Date Type Department Care Team Description 06/01/2020 [facility] Records [address] [place] [address] Abstract, Provider Social History Tobacco Use Types [...] on filedocumented in this encounter Care Teams Global Technical Writer Relationship Specialty Start Date End Date Maricarmen Prescott MD PCP - General 02/01/07 09/07/21 Beti Carrion MD [address] [place] [address] PCP - General Internal Medicine 10/04/21 11/20/22 Johan Griffin [address] [place] [address] PCP - General Internal Medicine 09/08/21 10/03/21 Ayesha Marroquin PA-C [address] [place] [address] PCP - General Internal Medicine 12/29/22 Geoffrey Lynn MD Specialist Cardiovascular Disease 10/20/20 Beatriz Talbot NP Specialist Cardiology 10/20/20 12/27/22 Nita Gutierrez NP [address] [place] [address] Cardiology 12/28/22 documented as of this encounter
--- OUTSIDE RECORDS SUMMARY | 2024-07-04 16:09 | XMS_ITS | Encounter Summary ---
Author Organization [facility] Address [address] [place] [address] Care Team Providers Care Bow Machine Operator Name Role Phone Maricarmen Prescott MD Primary Care Provider Unava Geoffrey Guardado MD Unavailable Beatriz Talbot NP Unavailable Unavailab Beti Patrick MD Primary Care Provider [phone] Johan Griffin Primary Care Provider [phone] Nita Gutierrez NP Unavailable [phone] Ayesha Marroquin PA-C Primary Care Provider Unavail able Encounter Details Date Type Department Care Team Description 03/25/2020 [facility] Medical Records [address] [place] [address] Abstract, Provider Social History Tobacco Use Types [...] filedocumented in this encounter Care Teams Bow Machine Operator Relationship Specialty Start Date End Date Maricarmen Prescott MD PCP - General 02/01/07 09/07/21 Beti Carrion MD [address] [place] [address] PCP - General Internal Medicine 10/04/21 11/20/22 Johan Griffin [address] [place] [address] PCP - General Internal Medicine 09/08/21 10/03/21 Ayesha Marroquin PA-C [address] [place] [address] PCP - General Internal Medicine 12/29/22 Geoffrey Lynn MD Specialist Cardiovascular Disease 10/20/20 Beatriz Talbot NP Specialist Cardiology 10/20/20 12/27/22 Nita Gutierrez NP [address] [place] [address] Cardiology 12/28/22 documented as of this encounter
--- OUTSIDE RECORDS SUMMARY | 2024-07-04 16:09 | XMS_ITS | Encounter Summary ---
Author Organization [facility] Address [address] [place] [address] Care Team Providers Care Truck Driving Name Role Phone Geoffrey Lynn MD Unavailable Beatriz Talbot NP Unavailable Unavailab Beti Patrick MD Primary Care Provider [phone] Nita Gutierrez SAFE DEPOSIT CLERK Unavailable [phone] Ayesha Marroquin PA-C Primary Care Provider Unavail able Reason for Visit * Reason Comments E-prescribe Rx Request Encounter Details Date Type Department Care Team Description 03/22/2022 Refill Gastroenterology [address] [place] [id number] Genny Grossman MD E-prescribe Rx Request Social [...] on filedocumented in this encounter Care Teams Truck Driving Relationship Specialty Start Date End Date Beti Carrion MD [address] [place] [address] PCP - General Internal Medicine 10/04/21 11/20/22 Ayesha Marroquin PA-C [address] [place] [address] PCP - General Internal Medicine 12/29/22 Geoffrey Lynn MD Specialist Cardiovascular Disease 10/20/20 Beatriz Talbot NP Specialist Cardiology 10/20/20 12/27/22 Nita Gutierrez NP [address] [place] [address] Cardiology 12/28/22 documented as of this encounter
--- OUTSIDE RECORDS SUMMARY | 2024-07-04 16:09 | XMS_ITS | Encounter Summary ---
Author Organization [facility] Address [address] [place] [address] Care Team Providers Care Breaker Machine Tender Name Role Phone Maricarmen Prescott MD Primary Care Provider Unava Geoffrey Guardado MD Unavailable Beatriz Talbot NP Unavailable Unavailab Beti Patrick MD Primary Care Provider [phone] Johan Griffin Primary Care Provider [phone] Nita Gutierrez NP Unavailable [phone] Ayesha Marroquin PA-C Primary Care Provider Unavail able Encounter Details Date Type Department Care Team Description 01/30/2020 [facility] Medical Records [address] [place] [address] Abstract, Provider Social History Tobacco Use Types [...] on filedocumented in this encounter Care Teams Breaker Machine Tender Relationship Specialty Start Date End Date Maricarmen Prescott MD PCP - General 02/01/07 09/07/21 Beti Carrion MD [address] [place] [address] PCP - General Internal Medicine 10/04/21 11/20/22 Johan Griffin [address] [place] [address] PCP - General Internal Medicine 09/08/21 10/03/21 Ayesha Marroquin PA-C [address] [place] [address] PCP - General Internal Medicine 12/29/22 Geoffrey Lynn MD Specialist Cardiovascular Disease 10/20/20 Beatriz Talbot NP Specialist Cardiology 10/20/20 12/27/22 Nita Gutierrez NP [address] [place] [address] Cardiology 12/28/22 documented as of this encounter
--- OUTSIDE RECORDS SUMMARY | 2024-07-04 16:09 | XMS_ITS | Encounter Summary ---
Author Organization [facility] Address [address] [place] [address] Care Team Providers Care Cargo Checker Name Role Phone Maricarmen Prescott MD Primary Care Provider Unava ilable Geoffrey Lynn MD Unavailable Beatriz Talbot NP Unavailable Unavailab Beti Patrick MD Primary Care Provider [phone] Johan Griffin Primary Care Provider [phone] Nita Gutierrez NP Unavailable [phone] Ayesha Marroquin PA-C Primary Care Provider Unavail able Encounter Details Date Type Department Care Team Description 06/10/2019 [facility] Report Medical Records [address] [place] [address] Geoffrey Lynn MD [address] [place] [address] [phone] Social History Tobacco Use Types Packs/Day Years [...] on filedocumented in this encounter Care Teams Cargo Checker Relationship Specialty Start Date End Date Maricarmen Prescott MD PCP - General 02/01/07 09/07/21 Beti Carrion MD [address] [place] [address] PCP - General Internal Medicine 10/04/21 11/20/22 Johan Griffin [address] [place] [address] PCP - General Internal Medicine 09/08/21 10/03/21 Ayesha Marroquin PA-C [address] [place] [address] PCP - General Internal Medicine 12/29/22 Geoffrey Lynn MD Specialist Cardiovascular Disease 10/20/20 Beatriz Talbot NP Specialist Cardiology 10/20/20 12/27/22 Nita Gutierrez NP [address] [place] [address] Cardiology 12/28/22 documented as of this encounter
--- OUTSIDE RECORDS SUMMARY | 2024-07-04 16:09 | XMS_ITS | Encounter Summary ---
Author Organization [facility] Address [address] [place] [address] Care Team Providers Care Snowboarding Instructor Name Role Phone Geoffrey Lynn MD Unavailable Beatriz Talbot NP Unavailable Unavailab Beti Patrick MD Primary Care Provider [phone] Nita Gutierrez EXTENSION PROFESSOR Unavailable [phone] Ayesha Marroquin PA-C Primary Care Provider Unavail able Encounter Details Date Type Department Care Team Description 03/04/2022 Orders Only Radiology - [address] [address] Beti Carrion MD [address] [place] [address] Social History Tobacco Use Types Packs/Day Years [...] on filedocumented in this encounter Care Teams Snowboarding Instructor Relationship Specialty Start Date End Date Beti Carrion MD [address] [place] [address] PCP - General Internal Medicine 10/04/21 11/20/22 Ayesha Marroquin PA-C [address] [place] [address] PCP - General Internal Medicine 12/29/22 Geoffrey Lynn MD Specialist Cardiovascular Disease 10/20/20 Beatriz Talbot NP Specialist Cardiology 10/20/20 12/27/22 Nita Gutierrez NP [address] [place] [address] Cardiology 12/28/22 documented as of this encounter
--- OUTSIDE RECORDS SUMMARY | 2024-07-04 16:09 | XMS_ITS | Encounter Summary ---
Author Organization [facility] Address [address] [place] [address] Care Team Providers Care Account Development Associate Name Role Phone Maricarmen Prescott MD Primary Care Provider Unava Geoffrey Guardado MD Unavailable Beatriz Talbot NP Unavailable Unavailab Beti Patrick MD Primary Care Provider [phone] Johan Griffin Primary Care Provider [phone] Nita Gutierrez NP Unavailable [phone] Ayesha Marroquin PA-C Primary Care Provider Unavail able Encounter Details Date Type Department Care Team Description 04/09/2020 [facility] Medical Records [address] [place] [address] Abstract, Provider Social History Tobacco Use Types [...] on filedocumented in this encounter Care Teams Account Development Associate Relationship Specialty Start Date End Date Maricarmen Prescott MD PCP - General 02/01/07 09/07/21 Beti Carrion MD [address] [place] [address] PCP - General Internal Medicine 10/04/21 11/20/22 Johan Griffin [address] [place] [address] PCP - General Internal Medicine 09/08/21 10/03/21 Ayesha Marroquin PA-C [address] [place] [address] PCP - General Internal Medicine 12/29/22 Geoffrey Lynn MD Specialist Cardiovascular Disease 10/20/20 Beatriz Talbot NP Specialist Cardiology 10/20/20 12/27/22 Nita Gutierrez NP [address] [place] [address] Cardiology 12/28/22 documented as of this encounter
--- OUTSIDE RECORDS SUMMARY | 2024-07-04 16:09 | XMS_ITS | Encounter Summary ---
Author Organization [facility] Address [address] [place] [address] Care Team Providers Care Paint Booth Operator Name Role Phone Maricarmen Prescott MD Primary Care Provider Unava ilGeoffrey Hall MD Unavailable Beatriz Talbot NP Unavailable Unavailab Beti Patrick MD Primary Care Provider [phone] Johan Griffin Primary Care Provider [phone] Nita Gutierrez BIOMETRICS HEAD Unavailable [phone] Ayesha Marroquin PA-C Primary Care Provider Unavail able Reason for Visit * Reason Onset Date Comments Medication 05/21/2019 Encounter Details Date Type Department Care Team Description 05/21/2019 Telephone Medicine/Pediatrics - [address] [address] Maricarmen Prescott MD Medication Social History Tobacco [...] on filedocumented in this encounter Care Teams Paint Booth Operator Relationship Specialty Start Date End Date Maricarmen Prescott MD PCP - General 02/01/07 09/07/21 Beti Carrion MD [address] [place] [address] PCP - General Internal Medicine 10/04/21 11/20/22 Johan Griffin [address] [place] [address] [id number] PCP - General Internal Medicine 09/08/21 10/03/21 Ayesha Marroquin PA-C [address] [place] [address] PCP - General Internal Medicine 12/29/22 Geoffrey Lynn MD Specialist Cardiovascular Disease 10/20/20 Beatriz Talbot NP Specialist Cardiology 10/20/20 12/27/22 Nita Gutierrez NP [address] [place] [address] Cardiology 12/28/22 documented as of this encounter
--- OUTSIDE RECORDS SUMMARY | 2024-07-04 16:09 | XMS_ITS | Encounter Summary ---
Author Organization [facility] Address [address] [place] [address] Care Team Providers Care Electrical Logger Name Role Phone Maricarmen Prescott MD Primary Care Provider Unava Geoffrey Guardado MD Unavailable Beatriz Talbot NP Unavailable Unavailab Beti Patrick MD Primary Care Provider [phone] Jhoan Griffin Primary Care Provider [phone] Nita Gutierrez NP Unavailable [phone] Ayesha Marroquin PA-C Primary Care Provider Unavail able Encounter Details Date Type Department Care Team Description 05/18/2020 Business Doc Medical Records [address] [place] [address] Abstract, Provider Social History Tobacco Use Types [...] filedocumented in this encounter Care Teams Electrical Logger Relationship Specialty Start Date End Date Maricarmen Prescott MD PCP - General 02/01/07 09/07/21 Beti Carrion MD [address] [place] [address] PCP - General Internal Medicine 10/04/21 11/20/22 Johan Griffin [address] [place] [id number] PCP - General Internal Medicine 09/08/21 10/03/21 Ayesha Marroquin PA-C [address] [place] [id number] PCP - General Internal Medicine 12/29/22 Geoffrey Lynn MD Specialist Cardiovascular Disease 10/20/20 Beatriz Talbot NP Specialist Cardiology 10/20/20 12/27/22 Nita Gutierrez NP [address] [place] [address] Cardiology 12/28/22 documented as of this encounter
--- OUTSIDE RECORDS SUMMARY | 2024-07-04 16:09 | XMS_ITS | Encounter Summary ---
Author Organization [facility] Address [address] [place] [address] Care Team Providers Care Electronics Specialist Name Role Phone Maricarmen Prescott MD Primary Care Provider Unava Geoffrey Guardado MD Unavailable Beatriz Talbot NP Unavailable Unavailab Beti Patrick MD Primary Care Provider [phone] Johan Griffin Primary Care Provider [phone] Nita Gutierrez NP Unavailable [phone] Ayesha Marroquin PA-C Primary Care Provider Unavail able Encounter Details Date Type Department Care Team Description 07/10/2019 Orders Only Medical Records [address] [place] [id number] Brittani Casas MD Social History Tobacco Use [...] on filedocumented in this encounter Care Teams Electronics Specialist Relationship Specialty Start Date End Date Maricarmen Prescott MD PCP - General 02/01/07 09/07/21 Beti Carrion MD [address] [place] [address] [id number] PCP - General Internal Medicine 10/04/21 11/20/22 Johan Griffin [address] [place] [address] [id number] PCP - General Internal Medicine 09/08/21 10/03/21 Ayesha Marroquin PA-C [address] [place] [id number] PCP - General Internal Medicine 12/29/22 Geoffrey Lynn MD Specialist Cardiovascular Disease 10/20/20 Beatriz Talbot NP Specialist Cardiology 10/20/20 12/27/22 Nita Gutierrez NP [address] [place] [address] Cardiology 12/28/22 documented as of this encounter
== END 2024-07-04 16:23 | disposition home or self-care (01) ==
PROVIDERS: PCP Physician Assistant; Visit Provider Nurse Practitioner Family
DX: S80.12XA Contusion of left lower leg, initial encounter (principal); S40.022A Contusion of left upper arm, initial encounter

== ENCOUNTER → 2024-07-04 16:24 | Outpatient (BNV) | payer MEDICARE, MEDICAID, SELFPAY | PROVIDERS: PCP Physician Assistant; Visit Provider Radiology Diagnostic Radiology | DX: S40.022A Contusion of left upper arm, initial encounter (principal) | CPT/HCPCS: 73060 ==

== ENCOUNTER 2024-07-24 13:59 | Outpatient (AMB) | payer MEDICARE, MEDICAID, SELFPAY ==
[2024-07-24 14:04] VITALS: BP 140/72; PULSE 71; O2SAT 97; BMI 33.9
--- NOTE | 2024-07-24 14:04 | A.OFFVIS_ITS ---
Vital Signs 07/24/24 14:04 Height 5 ft 3 in Weight 191 lb 6 oz BMI 33.9 BP 140/72 H Blood Pressure Location Lt brachial Position Sitting Pulse 71 Pulse Source Pulse Oximeter Pulse Oximetry (%) 97 Oxygen Delivery Method Room Air Intake Visit Reasons: COPD Allergies codeine Allergy (Intermediate, Verified 07/24/24 14:09) headache duloxetine [From Cymbalta] Allergy (Mild, Verified 07/24/24 14:09) Itching HPI HPI COPD: Details: Rose is a pleasant 79 year female, former smoker with less than 10 pack year history, quit 20 years ago with underlying COPD, HTN, fibromyalgia, osteoporosis and h/o MGUS under the care of Dr. Contreras. Since the last visit she has been using Breo consistently and continues with increased dyspnea and dry cough. She denies any visits to urgent care or hospitalizations related to respiratory distress since the last visit. [facility] Medical History (Updated 07/04/24 @ 17:30 by Paige Johnson NP) Contusion of left arm Contusion of left lower extremity Insomnia Chronic fatigue IBS (irritable bowel syndrome) GERD (gastroesophageal reflux disease) Osteoporosis Fibromyalgia Depression, major, recurrent, moderate Generalized anxiety disorder CAD (coronary artery disease) Hyperlipidemia HTN (hypertension), benign Diverticulitis FHx: total knee replacement Surgical History S/P hip replacement H/O shoulder replacement Social History Housing: Other Housing Other:: Mobile home Alcohol intake: current Patient Tobacco Use Status: Former Tobacco user Tobacco use type: Cigarette Years Smoked: 16 years total. Smoked socially. quit 25 years ago e-Cigarette/Vaping Use: Never Used Second Hand Smoke Exposure: Yes Use of substances other than those prescribed or required for medical reasons: No service: No Current occupational status: retired Cognitive needs: No Hearing needs: No Vision needs: No Review of Systems Const Denies chills, Denies excessive sweating, Denies fever(s), Denies headache(s) and Denies night sweats Eyes Denies dry eyes, Denies irritation and Denies itchy eyes ENT Reports Normal hearing present, Denies headache(s), Denies nasal congestion, Denies nasal discharge and Denies sore throat Card Denies chest pain, Denies chest pain at rest, Denies chest pain with activity, Denies claudication, Denies leg edema, Denies orthopnea and Denies paroxysmal nocturnal dyspnea Resp Denies chest congestion, Denies excessive phlegm production, Denies pain on inspiration, Denies pain with cough, Denies stridor and Denies wheezing Musc Denies myalgias Neuro Reports Normal hearing present and Denies headache(s) Endo Denies excessive sweating Rodolfo/Lymph Denies lymphadenopathy Aller/Immun Denies itchy eyes, Denies seasonal rhinorrhea and Denies wheezing Physical Exam Vital Signs: Last Vital Signs Pulse 71 07/24/24 14:04 BP 140/72 H 07/24/24 14:04 Pulse Ox 97 07/24/24 14:04 Oxygen Delivery Method Room Air 07/24/24 14:04 BMI result Body Mass Index 33.9 Const General: cooperative, healthy appearing, comfortable, no acute distress, well developed and alert Nutritional Appearance: obese Orientation/consciousness: patient oriented x3 Limitations: no limitations HEENT Head: Yes normal to inspection, Yes normocephalic and Yes atraumatic Ears: hearing grossly normal bilaterally and external ears normal Eyes General: appearance normal, both eyes and all related structures Eyelids: Yes eyelids normal Sclerae: sclerae normal EOM: EOMs intact bilaterally Neck Neck: Yes normal visual inspection and Yes no lymphadenopathy Lymphatic: no lymphadenopathy noted Chest Chest palpation & inspection: normal inspection of the chest Resp Effort & Inspection: normal respiratory effort, able to speak in complete sentences, no audible wheezes, no cough, no stridor, not tachypneic, no tripod positioning and no use of accessory muscles Auscultation: clear to auscultation bilaterally Cardio Jugular venous distension: no JVD Rate: regular rate Rhythm: regular rhythm Skin Other: warm, dry General skin exam: no rashes or lesions noted Neuro General: patient oriented x3 Cranial nerves: Yes Normal hearing present Cognition (Neuro): normal cognition Gait exam (Neuro): Normal gait present Extrem General: Yes normal to inspection, Yes capillary refill normal, Yes no clubbing, cyanosis or edema and Yes no pedal edema Psych Appearance: grossly normal and well kempt Speech and movement: Normal speech and movement present and Clear speech present Affect: normal affect Attitude: cooperative Thought process: Normal thought process present Thought content: Normal thought content present Insight: Good insight present (Psych) Judgement: Good judgement present (Psych) Assessment & Plan Assessment & Plan (1) COPD (chronic obstructive pulmonary disease): Code(s): J44.9 - Chronic obstructive pulmonary disease, unspecified Category: Medical Qualifiers: COPD type: unspecified COPD Qualified Code(s): J44.9 - Chronic obstructive pulmonary disease, unspecified (2) Personal history of tobacco use: Code(s): Z87.891 - Personal history of nicotine dependence Category: Social Hx (3) Pulmonary nodule: Code(s): R91.1 - Solitary pulmonary nodule Category: Medical Plan Rose reports suboptimal control of respiratory symptoms on current regimen, will switch Breo to Trelegy. Encouraged patient to reach out to cardiology to schedule follow up to rule out cardiac component. advised to continue. May need repeat echo to assess for pulmonary hypertension. All questions were answered and patient is in agreement of plan. Will follow-up in 6-8 weeks or sooner if needed. Medications: New mvdeuphmery-orysqdkww-lsdxlexx 200-62.5-25 mcg (Trelegy Ellipta) 1 inh inhalation DAILY 60 ea 6RF Discontinued Breo Ellipta 200-25 mcg/dose (fluticasone furoate-vilanterol) Discontinued Reason: Patient Completed Course 1 inh inhalation DAILY 60 ea 3RF NS J44.9 - Chronic obstructive pulmonary disease, unspecified Coding Level of Care Code Est Pt Level 3 (04674) Diagnoses Chronic obstructive pulmonary disease, unspecified COPD type J44.9 COPD type: unspecified COPD Personal history of tobacco use Z87.891 Pulmonary nodule R91.1
--- OUTSIDE RECORDS SUMMARY | 2024-07-24 14:55 | XMS_ITS | Encounter Summary ---
Author Organization [employer] [facility] Address [address] [place] [address] Care Team Providers Care Manager Of Business Operations Name Role Phone Geoffrey Lynn MD Unavailable Nita Gutierrez NP Unavailable [phone] Ayesha Marroquin PA-C Primary Care Provider Unavail able Encounter Details Date Type Department Care Team Description 09/12/2023 Orders Only Cardio PVC POC [address] [facility] [address] [place] [address] Default, Provider Social History Tobacco Use Types [...] filedocumented in this encounter Care Teams Manager Of Business Operations Relationship Specialty Start Date End Date Ayesha Marroquin PA-C PCP - General Internal Medicine 11/2/23 Geoffrey Lynn MD Specialist Cardiovascular Disease 10/20/20 Nita Gutierrez NP Cardiology 12/28/22 documented as of this encounter
== END 2024-07-24 14:36 | disposition home or self-care (01) ==
LOC: HO.HPSW 14:00
PROVIDERS: PCP Physician Assistant; Visit Provider Nurse Practitioner Family
DX: J44.9 Chronic obstructive pulmonary disease, unspecified (principal); Z87.891 Personal history of nicotine dependence; R91.1 Solitary pulmonary nodule
CPT/HCPCS: 99213

== ENCOUNTER → 2024-07-24 13:59 | Outpatient (BNVA) | payer MEDICARE, MEDICAID, SELFPAY | PROVIDERS: PCP Physician Assistant; Visit Provider Nurse Practitioner Family | DX: J44.9 Chronic obstructive pulmonary disease, unspecified (principal); R91.1 Solitary pulmonary nodule; Z87.891 Personal history of nicotine dependence | CPT/HCPCS: 99212 ==

== ENCOUNTER 2024-09-10 14:15 | Outpatient (AMB) | payer MEDICARE, MEDICAID, SELFPAY ==
[2024-09-10 14:30] VITALS: BP 132/80; PULSE 73; O2SAT 99; BMI 33.7
--- NOTE | 2024-09-10 14:30 | MHC.OFFVIS ---
Vital Signs 09/10/24 14:30 Height 5 ft 3 in Weight 190 lb 2 oz BMI 33.7 BP 132/80 Blood Pressure Location Lt brachial Position Sitting Pulse 73 Pulse Source Pulse Oximeter Pulse Oximetry (%) 99 Oxygen Delivery Method Room Air Intake Visit Reasons: COPD Allergies codeine Allergy (Intermediate, Verified 09/10/24 14:33) headache duloxetine (From Cymbalta) Allergy (Mild, Verified 09/10/24 14:33) Itching HPI HPI COPD: Details: Rose is a pleasant 79 year female, former smoker with less than 10 pack year history, quit 20 years ago with underlying COPD, HTN, fibromyalgia, osteoporosis and h/o MGUS under the care of Dr. Contreras. Since the last visit she was switched from Breo to Trelegy, reporting improvement compared to Breo, cough has resolved, although she occasionally misses doses. She reports dyspnea on exertion, particularly when walking her dog, and attributes this to humidity or weather conditions. She denies chest pain but mentions occasional pressure or pinching sensations, which she treats with medication for acid reflux. She has also been experiencing frequent dizziness, which has been persistent for about a week, causing her to stay home and avoid driving. She describes episodes of lightheadedness upon standing and has a history of vertigo for which she takes meclizine. She was previously recommended to follow up with cardiology regarding ongoing symptoms however has yet to do so, however states she will call today. She also reports possible apneic events and paroxsymal nocturnal dyspnea with associated daytime fatigue. Denies h/o KAY or prior sleep study, [facility] Medical History (Updated 09/10/24 @ 21:36 by Faiza Garay NP) Contusion of left arm Contusion of left lower extremity Insomnia Chronic fatigue IBS (irritable bowel syndrome) GERD (gastroesophageal reflux disease) Osteoporosis Fibromyalgia Depression, major, recurrent, moderate Generalized anxiety disorder CAD (coronary artery disease) Hyperlipidemia HTN (hypertension), benign Diverticulitis FHx: total knee replacement Surgical History S/P hip replacement H/O shoulder replacement Social History Housing: Other Housing Other:: Mobile home Alcohol intake: current Patient Tobacco Use Status: Former Tobacco user Tobacco use type: Cigarette Years Smoked: 16 years total. Smoked socially. quit 25 years ago e-Cigarette/Vaping Use: Never Used Second Hand Smoke Exposure: Yes service: No Current occupational status: retired Cognitive needs: No Hearing needs: No Vision needs: No Review of Systems Const Denies chills, Denies excessive sweating, Denies fever(s), Denies headache(s) and Denies night sweats Eyes Denies dry eyes, Denies irritation and Denies itchy eyes ENT Reports Normal hearing present, Denies headache(s), Denies nasal congestion, Denies nasal discharge and Denies sore throat Card Denies chest pain, Denies chest pain at rest, Denies chest pain with activity, Denies claudication, Denies leg edema, Reports dyspnea on exertion, Denies orthopnea and Denies paroxysmal nocturnal dyspnea Resp Denies chest congestion, Denies cough, Denies excessive phlegm production, Denies pain on inspiration, Denies pain with cough, Reports dyspnea on exertion, Denies stridor and Denies wheezing Musc Denies myalgias Neuro Reports Normal hearing present and Denies headache(s) Endo Denies excessive sweating Rodolfo/Lymph Denies lymphadenopathy Aller/Immun Denies itchy eyes, Denies seasonal rhinorrhea and Denies wheezing Physical Exam Vital Signs: Last Vital Signs Pulse 73 09/10/24 14:30 BP 132/80 09/10/24 14:30 Pulse Ox 99 09/10/24 14:30 Oxygen Delivery Method Room Air 09/10/24 14:30 BMI result Body Mass Index 33.7 Const General: cooperative, healthy appearing, comfortable, no acute distress, well developed and alert Nutritional Appearance: obese Orientation/consciousness: patient oriented x3 Limitations: no limitations HEENT Head: Yes normal to inspection, Yes normocephalic and Yes atraumatic Ears: hearing grossly normal bilaterally and external ears normal Eyes General: appearance normal, both eyes and all related structures Eyelids: Yes eyelids normal Sclerae: sclerae normal EOM: EOMs intact bilaterally Neck Neck: Yes normal visual inspection and Yes no lymphadenopathy Lymphatic: no lymphadenopathy noted Chest Chest palpation & inspection: normal inspection of the chest Resp Effort & Inspection: normal respiratory effort, able to speak in complete sentences, no audible wheezes, no cough, no stridor, not tachypneic, no tripod positioning and no use of accessory muscles Auscultation: clear to auscultation bilaterally Cardio Jugular venous distension: no JVD Rate: regular rate Rhythm: regular rhythm Skin Other: warm, dry General skin exam: no rashes or lesions noted Neuro General: patient oriented x3 Cranial nerves: Yes Normal hearing present Cognition (Neuro): normal cognition Gait exam (Neuro): Normal gait present Extrem General: Yes normal to inspection, Yes capillary refill normal, Yes no clubbing, cyanosis or edema and Yes no pedal edema Psych Appearance: grossly normal and well kempt Speech and movement: Normal speech and movement present and Clear speech present Affect: normal affect Attitude: cooperative Thought process: Normal thought process present Thought content: Normal thought content present Insight: Good insight present (Psych) Judgement: Good judgement present (Psych) Assessment & Plan Assessment & Plan (1) COPD (chronic obstructive pulmonary disease): Code(s): J44.9 - Chronic obstructive pulmonary disease, unspecified Category: Medical Qualifiers: COPD type: unspecified COPD Qualified Code(s): J44.9 - Chronic obstructive pulmonary disease, unspecified (2) Personal history of tobacco use: Code(s): Z87.891 - Personal history of nicotine dependence Category: Social Hx (3) Pulmonary nodule: Code(s): R91.1 - Solitary pulmonary nodule Category: Medical (4) Daytime somnolence: Code(s): R40.0 - Somnolence Category: Medical Plan The patient will continue using Trelegy for COPD management, with a recommendation to take it consistently at the same time each day. A chest x-ray is ordered to assess any changes in the lungs, given the patient's dyspnea. 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 The patient is instructed to seek emergency care if symptoms such as dizziness, nausea, or dyspnea worsen, as these could indicate a cardiac event. A home sleep study is recommended to assess for sleep apnea, given her symptoms of nocturnal breathing difficulties. All questions were answered and patient is in agreement of plan. Will follow-up in 6-8 weeks or sooner if needed. Orders: Orders XR chest 2V Today R06.00 - Dyspnea, unspecified RT home sleep study Today R40.0 - Somnolence Coding Level of Care Code Est Pt Level 4 (20142) Complex EM visit Add On G2211 Diagnoses Chronic obstructive pulmonary disease, unspecified COPD type J44.9 COPD type: unspecified COPD Personal history of tobacco use Z87.891 Pulmonary nodule R91.1 Daytime somnolence R40.0
--- OUTSIDE RECORDS SUMMARY | 2024-09-10 15:30 | XMS_ITS | Clinical Summary ---
Author Organization [facility] Address [address] [place] [address] Care Team Providers Care Wire Setter Name Role Phone Maricarmen Thomas MD Primary [...] 77 11/28/2022 1:55 PM EDT Temperature 36.6 C (97.9 F) 11/28/2022 1:55 PM EDT Respiratory Rate - - Oxygen Saturation 98% [...] 2023 03/04/2021, 05/29/2020, 05/08/2020 Influenza Vaccine (#1) 2024 2, 11/18/2021, 11/30/2020, Additional history exists DTap / Tdap / Td (2 - Td or Tdap) 09/03/2030 09/03/2020, 12/22/2010 Pneumococcal Vaccine Completed 12/23/2015, 11/27/19 11 Hepatitis B Vaccines Aged Out No long er eligible based on patient's age to complete this topic RSV Ped < 20 months Aged Out No longe r eligible based on patient's age to complete this topic Care Teams Wire Setter Relationship Specialty Start Date End Date Maricarmen Thomas MD PCP - General Internal Medicine 07/17/18
--- OUTSIDE RECORDS SUMMARY | 2024-09-10 15:30 | XMS_ITS | Clinical Summary ---
Author Organization [facility] Address [address] [address] Care Team Providers Care Auto Body Shop Manager Name Role Phone Ayesha Marroquin PA-C [...] Date Last Done Comments Influenza Vaccine (#1) 2024 2, 11/30/2020, 12/13/2019, Additional history exists Pneumococcal Vaccine: 50+ Years Completed 12/23/2015, 11/26/2010 Hepatitis B Vaccine Aged Out No longe r eligible based on patient's age to complete this topic Insurance Medicare Medicaid [place] Care Teams Auto Body Shop Manager Relationship Specialty Start Date End Date Ayesha Marroquin PA-C [address] [place] [id number] PCP - General Physician Statistical Programmer Analyst 08/23/23
--- OUTSIDE RECORDS SUMMARY | 2024-09-10 15:30 | XMS_ITS | Clinical Summary ---
Author Organization [address] [place] [address] [place] [phone] Phone Care Team Providers Care Interior Paneler Name Role Phone Ayesha Marroquin Primary Care Provider [phone] Allergies Active Allergy Reactions Criticality Noted Date Comments Codeine 12/23/2021 Duloxetine Hcl 08/07/2023 Itchy skin Medications BABY ASPIRIN ORAL Take by mouth daily. Active BIOTIN ORAL Take by mouth. Act pam meclizine HCl (MECLIZINE ORAL) Take by mouth. Activ e folic acid/multivit- min/lutein (CENTRUM SILVER ORAL) one tablet daily Active polyethylene glycol (PEG) 17 gram/dose oral powder One capful (17g) once daily as needed for constipation. 02/17/20 21 Active pyridoxine HCl, vitamin B6, (PYRIDOXINE, VITAMIN B6, ORAL) Take by mouth. Activ e albuterol HFA (Ventolin HFA) 90 mcg/actuation inhaler Inhale 2 Puffs into the lungs every 4 hours as needed for Cough, Wheezing or Shortness of Breath. 09/04/19 22 Active atorvastatin (LIPITOR) 40 mg tablet Take 1 Tablet by mouth daily. 05/10/19 23 Active busPIRone (BUSPAR) 5 mg tablet Take 1 Tablet by mouth 3 times daily. Active cyanocobalamin (VITAMIN B-12) 500 mcg tablet one tablet daily Active diclofenac (VOLTAREN) 1 % topical gel Apply 1 Drop topically 3 times daily. 09/15/19 21 Active docusate sodium (COLACE) 100 mg capsule TAKE 1 CAPSULE BY MOUTH TWICE DAILY FOR 10 DAYS NEEDED FOR constipation 12/09/19 23 Active fluticasone propionate (FLONASE) 50 mcg/actuation nasal spray INSTILL 2 SPRAYS INTRANASALLY ONCE DAILY 04/01/19 23 Active lisinopriL (PRINIVIL,ZEST RIL) 10 mg tablet Take 1 Tablet by mouth daily for 180 days. 08/21/19 24 Active LORazepam (ATIVAN) 1 mg tablet Take 1 Tablet by mouth every 6 hours as needed. Active metoprolol tartrate (LOPRESSOR) 25 mg tablet TAKE 1/2 tablet (12.5mg) BY MOUTH TWICE DAILY 12/12/19 24 Active pantoprazole (PROTONIX) 40 mg EC tablet Take 1 Tablet by mouth daily. Take in a.m. on empty stomach, wait 30 minutes and then eat and take the rest of your medications 08/21/19 22 Active sertraline (ZOLOFT) 100 mg tablet Take 1 Tablet by mouth daily. Take 1.5 tab Active simethicone (MYLICON) 80 mg chewable tablet Take 1 Tablet by mouth every 6 hours as needed for Flatulence. 10/12/19 22 Active Breo Ellipta 200-25 mcg/dose inhaler Inhale 1 puff by mouth 1 (one) time each day. 03/13/19 25 Active sucralfate (CARAFATE) 1 gram tablet Take 1 tablet by mouth 2 times daily At noon and at bedtime 60 tablet 11 04/11/19 25 Active isosorbide mononitrate (IMDUR) 30 mg 24 hr tablet Take 1 Tablet by mouth daily 30 tablet 5 09/06/19 25 Active isosorbide mononitrate (IMDUR) 30 mg 24 hr tablet Take 1 Tablet by mouth daily 30 tablet 5 03/01/19 25 025 Discontinued Active Problems Problem Noted Date Diagnosed [...] 12/29/2022 COPD (chronic obstructive pu lmonary disease) (CMS/[facility] V24, CMS/[facility] V28) 12/29/2022 Dyspnea on exertion 12/29/2022 [...] Type Department Care Team Description 06/27/2024 Telephone [facility] - [address] [place] [address] Nita Gutierrez NP from Last 3 Months Immunizations Name Administration [...] 06/05; 05/30; fingeroth OTHER SURGICAL HISTORY PROCEDURE: DC CHOLECYSTECTOMY W/EXPLORATION COMMON DUCT FOOT SURGERY PROCEDURE: HISTORICAL FOOT SURGERY; COMMENT: left foot pin placed BUNIONECTOMY PROCEDURE: BUNION SURGERY, SIMPLE REMOVAL; COMMENT: bilateral OTHER SURGICAL HISTORY PROCEDURE: DC COLECTOMY PRTL W/COLOST/ILEOST & MUCOFISTULA; COMMENT: diverticulitis CERVICAL BIOPSY W/ LOOP ELEC TRODE EXCISION PROCEDURE: HISTORICAL CONE BIOPSY COLONOSCOPY 2003 PROCEDURE: OUTSIDE COLONOSCOPY; COMMENT: tics OTHER SURGICAL HISTORY 11/19/15 Gena Solis PROCEDURE: COLON CA SCRN NOT HI RSK IND; COMMENT: tics and hemorrhoids; would not repeat ESOPHAGOGASTRODUODENOSCOPY 11/19/15 Gena Solis PROCEDURE: DC EGD TRANSORAL BIOPSY SINGLE/MULTIPLE; COMMENT: gastric erythema; nl appearing esophagus, dilated empirically to 20 mm; reactive antral changes w/o H. pylori; nl esoph. bxys SHOULDER SURGERY 01/08/2019 Right PROCEDURE: HISTORICAL SHOULDER SURGERY; COMMENT: arthroplasty; Dr. Clay ESOPHAGOGASTRODUODENOSCOPY 02/18/2021 PROCEDURE: DC EGD TRANSORAL BIOPSY SINGLE/MULTIPLE; COMMENT: retained bile. [...] (gastroesophageal reflux disease); COMMENT: Dr. Grossman Osteomyelitis ([facility] V24, [facility] V28) 2001 DX:Osteomyelitis ([facility]); COMM ENT: spine Other specified personal his tory presenting hazards to health(V15.89) DX:Other specifie d personal history presenting hazards to health(V15.89); COMMENT: cone biopsy in 's Historical Medical DX DX:Ventral hernia; COMMENT: small [...] Relation Name Status Comments Brother (Age 45) PR Daughter Alive 1970 healthy Father (Age 80) ? heart va lve problems, prostate ca, chf Mother (Age 81) lipids, di abetes, double bypass, PR; CHF Sister 1 Alive thyroid Sister 2 [...] 60 03/27/2024 1:55 PM EST Temperature 36.2 C (97.2 F) 03/27/2024 1:55 PM EST Respiratory Rate - - Oxygen Saturation 100% 03/27/2024 1:55 PM EST Inhaled Oxygen Concentration - - Weight 87.5 kg (193 lb) 03/27/2024 1:55 PM EST Height 160 cm (5' 3 ) 03/27/2024 1:55 PM EST Body Mass Index 34.19 03/27/2024 1:55 PM EST Plan of Treatment Upcoming Encounters Date Type Department Care Team (Late st Contact Info) Description 10/31/2024 1:10 PM EDT Office Visit [facility] - [address] [place] [address] Nita Gutierrez, FRANNY [address] [place] [address] Health Maintenance Due Date Last Done Comments Hepatitis A Vaccines (1 of 2 - Risk 2-dose series) 1962 Zoster Vaccines (1 of 2) 1993 RSV Immunization Adult Patients (1 - 1-dose 75+ series) 2018 Depression Screening 02/05/2022 Falls Risk Assessment 02/05/2022 Medicare Annual Wellness Visit 02/05/2022 Social Influencers of Health Screening 02/05/2022 COVID-19 Vaccine ( season) 2023 03/04/2021, 05/29/2020, 05/08/2020 Influenza Vaccine (#1) 2024 , 11/18/2021, 11/30/2020, Additional history exists Hypertension/CHF/CAD Annual BMP Blood Test 03/27/2025 03/27/2024, 08/16/2021 Cholesterol Screening (Lipid Panel) 08/16/2026 08/16/2021 Osteoporosis Screening (Bone Density Screening) 05/03/2028 05/03/2018 DTaP,Tdap,and Td Vaccines (3 - Td or Tdap) 09/03/2030 09/03/2020, 12/22/2010 Pneumococcal Vaccine: 50+ Years Completed 12/23/2015, 11/26/2010 HIB Vaccines Aged [...] PM [facility] Comment:Calculation based on the Chronic Kidney Disease Epidemiology Collaboration (CKD-EPI) equation refit without adjustment for race. BUN/Creatinine Ratio 18.7 LAB [...] METHOD 03/27/2024 5:13 PM [facility] Total Protein 7.1 6.0 - 8.0 g/dL LAB CHEMISTRY METHOD 03/27/2024 5:13 PM EST [facility] Albumin 3.7 3.2 - 5.0 g/dL LAB CHEMISTRY METHOD 03/27/2024 5:13 PM EST [facility] Total Bilirubin 0.4 0.0 - 1.4 mg/dL LAB CHEMISTRY METHOD 03/27/2024 5:13 PM EST [facility] Blood Venous blood specimen / Unknown Venipuncture / Unknown 03/27/2024 2:47 PM EST 03/27/2024 4:39 PM EST Kristi Contreras MD LAB BLOOD ORDERABLES Final R esult [facility] [address] [place] [address], * (ABNORMAL) Lipid panel (08/16/2021) LDL/HDL Ratio 3 0 - 4 Triglycerides 203(A) 0 - 150 mg/dL Cholesterol 175 0 - 200 mg/dL HDL 71 >=40 mg/dL LDL Cholesterol 64 0 - 100 mg/dL Blood Venous blood specimen / Unknown [facility] Provider LAB BLOOD ORDERABLES Genia [...] 6.9%. IMPRESSION: Normal by WHO criteria. The [facility] Department of Internal Medicine recommends [...] alternative screening schedule based on tara Chirinos., [facility] March 17, 2011 for [...] 6.9%. IMPRESSION: Normal by WHO criteria. The [facility] Department of Internal Medicine recommendsusing [...] Nita Perkins MD IM DXA PROCEDURES Genia l Result from Last 3 Months or Most Recently Relevant to Health Maintenance Insurance MEDICARE MEDICAID - [place] Care Teams Interior Paneler Relationship Specialty Start Date End Date Ayesha Marroquin PA [address] [place] [phone] PCP - General 12/29/22
== END 2024-09-10 15:01 | disposition home or self-care (01) ==
LOC: HO.HPSW 14:15
PROVIDERS: PCP Physician Assistant; Visit Provider Nurse Practitioner Family
DX: J44.9 Chronic obstructive pulmonary disease, unspecified (principal); Z87.891 Personal history of nicotine dependence; R91.1 Solitary pulmonary nodule; R40.0 Somnolence
CPT/HCPCS: 99214; G2211

== ENCOUNTER → 2024-09-10 14:15 | Outpatient (BNVA) | payer MEDICARE, MEDICAID, SELFPAY | PROVIDERS: PCP Physician Assistant; Visit Provider Nurse Practitioner Family | DX: R40.0 Somnolence (principal); R91.1 Solitary pulmonary nodule; J44.9 Chronic obstructive pulmonary disease, unspecified; Z87.891 Personal history of nicotine dependence | CPT/HCPCS: 99212 ==

== ENCOUNTER 2024-09-18 11:08 | Outpatient (AMB) | payer MEDICARE, MEDICAID, SELFPAY ==
--- NOTE | 2024-09-18 11:23 | MHC.PC.OV ---
Vital Signs 09/18/24 11:26 Height 5 ft 3 in Weight 193 lb BMI 34.2 BP 124/76 Blood Pressure Location Rt brachial Position Sitting Respiration 16 Pulse 69 Pulse Source Pulse Oximeter Temp 98 F Temp Source Oral Pulse Oximetry (%) 96 Oxygen Delivery Method Room Air Intake Visit Reasons: Reschedule Lab/ BP/ shoulder pain Intake Note: Follow up. Retail Store Associate wants to put pt on Lasix to help with fluid retention. Business Initiatives Manager Required: No Allergies codeine Allergy (Intermediate, Verified 09/18/24 11:25) headache duloxetine (From Cymbalta) Allergy (Mild, Verified 09/18/24 11:25) Itching Medication List - Last Reconciled 09/18/24 by Ayesha Marroquin PA-C acetaminophen 1,000 mg (2 x 500 mg) PO Q6H PRN albuterol sulfate 90 mcg/actuation 2 puffs inhalation Q6H PRN 30 days aspirin 81 mg PO DAILY atorvastatin 40 mg PO DAILY biotin mcg PO DAILY buspirone 5 mg PO TID 90 days cholecalciferol (vitamin D3) 50 mcg PO DAILY diclofenac sodium 1% 4 grams topical QID PRN diclofenac sodium 1% (Voltaren Arthritis Pain) 2 grams topical BID docusate sodium 100 mg PO DAILY docusate sodium 100 mg PO BID fluticasone propionate 50 mcg/actuation (Allergy Relief (fluticasone)) 1 spray intranasal DAILY ijjiyqslvqr-umaiyrvvm-zpzvpnfc 200-62.5-25 mcg (Trelegy Ellipta) 1 inh inhalation DAILY inhalational spacing device (Aerochamber Plus Z Stat spacer) As directed isosorbide mononitrate ER 30 mg PO DAILY lorazepam 0.5 mg PO BEDTIME PRN magnesium glycinate 100 mg PO DAILY meloxicam 15 mg PO DAILY metoprolol tartrate 12.5 mg PO BID da-nnt-rcpif-calcium carb-K1 400 mcg-500 mg calcium-20 mcg (Women's 50 Plus Multivitamin) tabs PO pantoprazole 40 mg PO DAILY sertraline 150 mg (1.5 x 100 mg) PO DAILY 90 days simethicone 80 mg PO Q6H PRN sucralfate 1 g PO BID vitamins A,C,I-vjft-ibssoj 4,296 mcg-226 mg-90 mg (PreserVision AREDS) 1 cap PO BID Tobacco use date assessed: 06/19/24 Dental Screening Dental Screen Date: 06/08/23 HPI Reschedule Lab/ BP/ shoulder pain HPI Details Patient is an 79-year-old female who presents today for a follow up. She does complain today of increased urinary frequency. No burning, fever or chills. No abdominal pain. She has a history of increased urinary frequency but thinks it might be a little bit more than her baseline. CV: Blood pressure today in the office is 124/76. She is currently on metoprolol 12.5 mg twice a day, isosorbide 30 mg daily. Cholesterol is controlled with atorvastatin 40 mg. She had a neg stress and cath in 2023 despite the calcifications seen on CT. Has cardiology follow up with [facility] recently and last week called cardiology for increased ANDERSON. She is still getting very sob with exertion and they recommended she start lasix which she has not picked up yet. They did labs bnp, bmp, and cbc per pt. told stable/normal. Pulm: Sees pulmonology and was recently on trelegy. Has albuterol to use as needed. For the shortness a breath with exertion it was recommended that she get a chest x-ray. She has not yet done this. She also was instructed to call Cardiology which she did in the recommendation was to start Lasix. Heme: Follows with Dr. Contreras at [facility].. She sees him q 6 months for anemia and mgus. Saw GI for a colonoscopy and endoscopy in 2019 (no report available) Nephro: following with Dr. Barrera and fluid restricted for the hyponatremia. Endo: She was following with endo for hyperparathyroidism in [place] but does not like him and is now booked for a second opinion in September. Musculoskeletal: following with [facility] for ongoing left shoulder pain. She fell on it in May and has had constant pain since then. Reports having imaging. She sees them again in a couple weeks. The meloxicam is minimally helpful. Psych: Does not notice a significant change with the Ativan. Has a hard time staying asleep and falling asleep at times. States that she gets a lot of stress and anxiety and plays games on her phone to help decompress.. She is on zoloft and buspar. She has been on this regimen for years and has tried numerous other medications but has been unable to either tolerate them or felt ineffective. I have tried to refer her quite a few times to behavioral health and she does not show up to the appointments or gets overwhelmed with the idea of making appointments. She left [facility] as Mariah was too young to see her . She does admit it would be helpful to see someone. No SI/HI. Very tearful today and feels that her depression is exacerbated. She is fighting with her daughter right now and her son is another stressor for her with his depression and homelessness. He did just get a place in [place] but she does not think that this is a great fit. Does not want to be hospitalized for depression. She denies any SI/HI. Derm: Followed with Dermatology for her hair growth and they told her that there was nothing really she could do besides that. [facility] Medical History (Updated 09/18/24 @ 12:11 by Ayesha Marroquin PA-C) Contusion of left arm Contusion of left lower extremity Insomnia Chronic fatigue IBS (irritable bowel syndrome) GERD (gastroesophageal reflux disease) Osteoporosis Fibromyalgia Depression, major, recurrent, moderate Generalized anxiety disorder CAD (coronary artery disease) Hyperlipidemia HTN (hypertension), benign Diverticulitis FHx: total knee replacement Surgical History S/P hip replacement H/O shoulder replacement Social History Housing: Other Housing Other:: Mobile home Alcohol intake: current Patient Tobacco Use Status: Former Tobacco user Tobacco use type: Cigarette Years Smoked: 16 years total. Smoked socially. quit 25 years ago e-Cigarette/Vaping Use: Never Used Second Hand Smoke Exposure: Yes service: No Current occupational status: retired Cognitive needs: No Hearing needs: No Vision needs: No Questionnaire PHQ-9 Over the last 2 weeks, how often have you been bothered by any of the following problems? 1. Little interest or pleasure in doing things: nearly every day 2. Feeling down, depressed, or hopeless: nearly every day 3. Trouble falling or staying asleep, or sleeping too much: nearly every day 4. Feeling tired or having little energy: nearly every day 5. Poor appetite or overeating: more than half the days 6. Feeling bad about yourself - or that you are a failure or have let yourself or your family down: several days 7. Trouble concentrating on things, such as reading the newspaper or watching television: several days 8. Moving or speaking so slowly that other people could have noticed. Or the opposite - being so fidgety or restless that you have been moving around a lot more than usual: not at all 9. Thoughts that you would be better off or of hurting yourself in some way: not at all Total score: 16 Source: Developed by Drs. Johnathan Landeros, Yanelis Maldonado, Dutch Vogel and colleagues, with an educational rambo from [employer]. Thrive Questionnaire Date Thrive assessed: 05/13/24 What is your living situation today?: I have a steady place to live Within the past 12 months, did the food you bought not last and you didn't have the money to get more?: I choose not to answer this question Within the past 12 months, did you worry whether your food would run out before you got money to buy more?: Sometimes True Do you have trouble paying for medicines?: No Do you have trouble getting transportation to medical appointments?: No Do you have trouble paying your heating and electricity bill?: Yes Do you have trouble taking care of your child, family member or friend?: No Do you have trouble with day-to-day activities such as bathing, preparing meals, shopping, managing finances, etc.?: I choose not to answer this question Are you currently unemployed and looking for a job?: I choose not to answer this question Are you interested in more education?: No Please select the resources that you would like help with: Utilities Currently or been in a relationship where the following occur: No concerns reported THRIVE Score: 2 AUDIT C Alcohol Use Questionnaire (AUDIT-C) 2. How many drinks containing alcohol do you have on a typical day when you are drinking?: 1 or 2 3. How often do you have six or more drinks on one occasion?: Never Total Score: 0 MAYTE-7 AMB Questionnaire MAYTE-7 Date MAYTE - 7 assessed: 06/08/23 Source: Developed by Drs. Johnathan Landeros, Yanelis Maldonado, Dutch Vogel and colleagues, with an educational rambo from [employer]. Physical exam (Primary Care) Vital Signs: Last Vital Signs Temp 98 F 09/18/24 11:26 Pulse 69 09/18/24 11:26 Resp 16 09/18/24 11:26 BP 124/76 09/18/24 11:26 Pulse Ox 96 09/18/24 11:26 Oxygen Delivery Method Room Air 09/18/24 11:26 BMI result Body Mass Index 34.2 Tobacco/Smoking Status: Tobacco use Status Tobacco use date assessed 06/19/24 09/18/24 11:23 Patient Tobacco Use Status Former Tobacco user 09/18/24 11:23 Tobacco use type Cigarette 09/18/24 11:23 e-Cigarette/Vaping Use Never Used 09/18/24 11:23 PHQ-9: PHQ-9 Score PHQ-9: Total score 16 09/18/24 11:23 Thrive Assessment: Date of Thrive Assessment Date Thrive assessed 05/13/24 09/18/24 11:23 Currently or been in a relationship where the following occur: No concerns reported Const Orientation/consciousness: patient oriented x3 HENMT Ears: hearing grossly normal bilaterally Neck Thyroid: Thyroid normal Lymphatic: no lymphadenopathy noted Resp Auscultation: clear to auscultation bilaterally Cardio Rate: regular rate Rhythm: regular rhythm Heart sounds: S1 normal heart sound present and S2 normal heart sound present GI Inspection: Yes normal to inspection Palpation (GI): Soft to palpation and Other GI palpation findings present (nontender, no cva tenderness) Auscultation: normoactive bowel sounds Rectal Exam - Female: deferred Skin General skin exam: no rashes or lesions noted Neuro General: patient oriented x3, gait normal and no focal motor deficits Psych Other: tearful throughout Appearance: well kempt Speech and movement: Clear speech present and Pressured speech present Affect: Sad affect present Attitude: cooperative Results Reviewed Results Reviewed: Laboratory Tests 06/18/24 12:12 WBC 4.2 L RBC 3.78 L Hgb 11.8 L Hct 35.3 L Plt Count 226 Sodium 135 Potassium 4.2 Chloride 102 Carbon Dioxide 26 Anion Gap 11 L BUN 14 Creatinine 0.73 Estimated GFR > 60 Fasting Glucose 100 H Total Bilirubin 0.5 AST 34 H ALT 22 Alkaline Phosphatase 98 Total Protein 7.8 Albumin 4.4 25-OH Vitamin D Total 44.2 TSH 2.56 PTH Intact 104.7 H Coding Level of Care Code Est Pt Level 5 (08150) Complex EM visit Add On G2211 Diagnoses HTN (hypertension), benign I10 ANDERSON (dyspnea on exertion) R06.09 Depression, major, recurrent, moderate F33.1 Generalized anxiety disorder F41.1 Hyperparathyroidism E21.3 Urinary frequency R35.0 Left shoulder pain M25.512 Assessment & Plan Assessment & Plan (1) HTN (hypertension), benign: Code(s): I10 - Essential (primary) hypertension Category: Medical Plan: wnl continue current plan (2) ANDERSON (dyspnea on exertion): Code(s): R06.09 - Other forms of dyspnea Category: Medical Plan: advised to start lasix as directed she will get her chest xray today as ordered (3) Depression, major, recurrent, moderate: Code(s): F33.1 - Major depressive disorder, recurrent, moderate Category: Medical Plan: very uncontrolled feels safe, will let me know if anything changes i did refer to psychiatry we did spent 45 mins alone discussing mental health and hospital visit for this but right now does not want to do this (4) Generalized anxiety disorder: Code(s): F41.1 - Generalized anxiety disorder Category: Medical Plan: increased lorazepam to 1 mg (5) Hyperparathyroidism: Code(s): E21.3 - Hyperparathyroidism, unspecified Category: Medical Plan: has scheduled visit with endo (6) Urinary frequency: Code(s): R35.0 - Frequency of micturition Category: Medical Plan: ua and culture has a hx of this was referred previously to urology (7) Left shoulder pain: Code(s): M25.512 - Pain in left shoulder Category: Medical Plan: chronic following with [facility] in 2 weeks again for f.u will try lidocaine patches Plan bone density was ordered and pending appointment Orders: Orders UA CC w/rflx Micro + Cult Today Z13.220 - Encounter for screening for lipoid disorders Referrals Psychiatry Referral F33.1 - Major depressive disorder, recurrent, moderate, F41.1 - Generalized anxiety disorder, G47.00 - Insomnia, unspecified Nurse Navigator Referral F33.1 - Major depressive disorder, recurrent, moderate, F41.1 - Generalized anxiety disorder Medications: New lidocaine 5% leave on most painful area for up to 12 hrs 1 patch topical DAILY 30 ea 3RF Changed From lorazepam 0.5 mg PO BEDTIME PRN 30 tabs 0RF anxiety To lorazepam 1 mg (2 x 0.5 mg) PO BEDTIME PRN 60 tabs 3RF anxiety 30 days Patient Instructions: Reach out to Dr. Contreras office regardning next appointment
[2024-09-18 11:26] VITALS: BP 124/76; PULSE 69; RESP 16; TEMP 36.6; O2SAT 96; BMI 34.2
--- OUTSIDE RECORDS SUMMARY | 2024-09-18 12:10 | XMS_ITS | Clinical Summary ---
Author Organization [facility] Facility Address [address] [address] Care Team Providers Care Poultry Eviscerator Name Role Phone Ayesha Marroquin PA-C Primary [...] topic Insurance Medicare Medicaid [place] Care Teams Poultry Eviscerator Relationship Specialty Start Date End Date Ayesha Marroquin PA-C [address] [place] [phone] PCP - General Physician Automobile Locator 08/23/23
--- OUTSIDE RECORDS SUMMARY | 2024-09-18 12:10 | XMS_ITS | Clinical Summary ---
Author Organization [address] [place] [address] [place] [phone] Phone Care Team Providers Care Towel Sewer Name Role Phone Ayesha Marroquin Primary Care Provider [phone] Allergies Active Allergy Reactions Criticality Noted Date [...] as needed for Flatulence. 10/12/19 22 Active sucralfate (CARAFATE) 1 gram tablet Take 1 tablet by mouth 2 times daily At noon and at bedtime 60 tablet 11 04/11/19 25 Active isosorbide mononitrate (IMDUR) 30 mg 24 hr tablet Take 1 Tablet by mouth daily 30 tablet 5 09/06/19 25 Active magnesium glycinate 100 mg magnesium capsule Take 100 mg (1 capsule total) by mouth at bedtime. Active fluticasone-um eclidinium-deo anterol (Trelegy Ellipta) 200-62.5-25 mcg inhaler Inhale 1 puff (200 mcg total) by mouth 1 (one) time each day. Rinse mouth with water after use to reduce aftertaste and incidence of candidiasis. Do not swallow. Active furosemide (LASIX) 20 mg tablet Take 1 tablet (20 mg total) by mouth 1 (one) time each day. 30 each 5 09/19/19 25 026 Active isosorbide mononitrate (IMDUR) 30 mg 24 hr tablet Take 1 Tablet by mouth daily 30 tablet 5 03/01/19 25 025 Discontinued Breo Ellipta 200-25 mcg/dose inhaler Inhale 1 puff by mouth 1 (one) time each day. 03/13/19 25 025 Discontinued Active Problems Problem Noted [...] 12/29/2022 COPD (chronic obstructive pu lmonary disease) (CMS/HCC V24, CMS/HCC V28) 12/29/2022 Dyspnea on exertion 12/29/2022 Hyponatremia [...] Encounters Date Type Department Care Team Description 09/10/2024 Telephone [facility] [address] [facility] [address] [place] [address] Nita Gutierrez NP Shortness of Breath 06/27/2024 Telephone [facility]iology [facility] [address] 300 [facility] [address] [place] [address] Nita Gutierrez NP from Last 3 Months Immunizations Name Administration Dates Next Due Influenza Quadravalent, MDCK , 0.5ml, with preservative (Flucelvax) 6mo and older 01/24/2017 Influenza trivalent, 0.5mL ( Fluad) 65yo and older 11/18/2021,11/30/2020,12/13/2019,11/09,12/29/2017,11/14/2014 Influenza trivalent, 0.5mL, preservative free (Fluarix; FluLaval; Fluzone) ages 6mo and older (Afluria) 3 years and older 12/20/2013,12/21/2012,11/25/2011,11/26,01/06/2010 Foodoro SARS-CoV-2 COVID-19, mRNA, LNP-S, preservative free 03/04/2021,05/29/2020,05/08/2020 Pneumococcal conjugate 13 va lent (Prevnar 13, PCV13) 2mo and older 12/23/2015 Pneumococcal polysaccharide 23 valent (Pneumovax 23) 2yo and older 11/26/2010 Td Tetanus diptheria (Tdvax) 7yo and older 12/22/2010 Surgical History Surgery Date Site/Laterality Comments KNEE SURGERY PROCEDURE: HISTORICAL KNEE SURGERY; COMMENT: knee replacements bilateral 06/05; 05/30; fingeroth OTHER SURGICAL HISTORY PROCEDURE: [place] CHOLECYSTECTOMY W/EXPLORATION COMMON DUCT FOOT SURGERY PROCEDURE: HISTORICAL FOOT SURGERY; COMMENT: left foot pin placed BUNIONECTOMY PROCEDURE: BUNION SURGERY, SIMPLE REMOVAL; COMMENT: bilateral OTHER SURGICAL HISTORY PROCEDURE: ND COLECTOMY PRTL W/COLOST/ILEOST & MUCOFISTULA; COMMENT: diverticulitis CERVICAL BIOPSY W/ LOOP ELEC TRODE EXCISION PROCEDURE: HISTORICAL CONE BIOPSY COLONOSCOPY 2003 PROCEDURE: OUTSIDE COLONOSCOPY; COMMENT: tics OTHER SURGICAL HISTORY 11/19/15 [facility] PROCEDURE: COLON CA SCRN NOT HI RSK IND; COMMENT: tics and hemorrhoids; would not repeat ESOPHAGOGASTRODUODENOSCOPY 11/19/15 [facility] PROCEDURE: ND EGD TRANSORAL BIOPSY SINGLE/MULTIPLE; COMMENT: gastric erythema; nl appearing esophagus, dilated empirically to 20 mm; reactive antral changes w/o H. pylori; nl esoph. bxys SHOULDER SURGERY 01/08/2019 Right PROCEDURE: HISTORICAL SHOULDER SURGERY; COMMENT: arthroplasty; Dr. Clay ESOPHAGOGASTRODUODENOSCOPY 02/18/2021 PROCEDURE: ND EGD TRANSORAL BIOPSY SINGLE/MULTIPLE; COMMENT: retained bile. [...] (gastroesophageal reflux disease); COMMENT: Dr. Grossman Osteomyelitis ([facility] V24, [facility] V28) 2001 DX:Osteomyelitis ([facility]); COMM ENT: spine Other specified personal his tory presenting hazards to health(V15.89) DX:Other specifie d personal history presenting hazards to health(V15.89); COMMENT: cone biopsy in Historical Medical DX DX:Ventral hernia; COMMENT: small [...] Relation Name Status Comments Brother (Age 45) [place] Daughter Alive 1970 healthy Father (Age 80) ? heart va lve problems, prostate ca, chf Mother (Age 81) lipids, di abetes, double bypass, [place]; CHF Sister 1 Alive thyroid Sister 2 [...] Description 10/31/2024 1:10 PM EDT Office Visit [facility] [address] [facility] [address] [place] [address] Nita Gutierrez, RF MICROWAVE ENGINEER [address] [address] Health Maintenance Due Date Last Done Comments Hepatitis A Vaccines (1 of 2 - Risk 2-dose series) 1962 Zoster Vaccines (1 of 2) 1993 RSV Immunization Adult Patients (1 - 1-dose 75+ series) 2018 Falls Risk Assessment 02/05/2022 Medicare Annual Wellness Visit 02/05/2022 Social Influencers of Health Screening 02/05/2022 COVID-19 Vaccine ( season) 2023 03/04/2021, 05/29/2020, 05/08/2020 Depression Screening 02/28/2024 Influenza Vaccine (#1) 2024 , 11/18/2021, 11/30/2020, Additional history exists Hypertension/CHF/CAD Annual BMP Blood Test 09/13/2025 09/13/2024, 03/27/2024, 08/16/2021 Cholesterol Screening (Lipid Panel) 08/16/2026 [...] Procedure Name Priority Date/Time Associated Diagnosis Comments COMPLETE BLOOD COUNT Routine 09/13/2024 3:45 PM EDT Dyspnea on exertion B-TYPE NATRIURETIC PEPTIDE Routine 09/13/2024 3:45 PM EDT Dyspnea on exertion BASIC METABOLIC PANEL Routine 09/13/2024 3:45 PM EDT Dyspnea on exertion LIPID PANEL Routine 08/16/2021 DXA BONE DENSITY STUDY 1+ SITS AXIAL SKEL Routine 05/03/2018 12:46 PM EST Fracture of unspecified carpal bone, left wrist, subsequent encounter for fracture with delayed healing from Last 3 Months or Most Recently Relevant to Health Maintenance Results * (ABNORMAL) Complete blood count (09/13/2024 3:45 PM EDT) WBC 4.8 3.4 - 10.8 x10E3/uL [facility] 1 RBC 3.34(L) 3.77 - 5.28 x10E6/uL [facility] 1 Hemoglobin 11.0(L) 11.1 - 15.9 g/dL [facility] 1 Hematocrit 32.9(L) 34.0 - 46.6 % [facility] 1 MCV 99(H) 79 - 97 fL [facility] 1 MCH 32.9 26.6 - 33.0 pg [facility] 1 MCHC 33.4 31.5 - 35.7 g/dL [facility] 1 RDW 13.5 11.7 - 15.4 % [facility] 1 Platelets 214 150 - 450 x10E3/uL [facility] 1 Blood Venous blood specimen / Unknown 09/13/2024 3:45 PM EDT 09/13/2024 Narrative [facility] 1 - 09/14/2024 6:07 AM EDT Performed at: 01 - [facility] [id number] [employer]: Casandra Sanchez MD, Phone: [phone] [facility] Kofi RF MICROWAVE ENGINEER LAB BLOOD ORDERABLES Final Resu lt [facility] 1 * (ABNORMAL) B-type natriuretic peptide (09/13/2024 3:45 PM EDT) Pathologist [facility] B-Type Natriuretic Peptide 131.2(H) 0.0 - 100.0 pg/mL [facility] 1 Comment:[employer] XP methodology Blood Venous blood specimen / Unknown 09/13/2024 3:45 PM EDT 09/13/2024 Narrative [facility] 1 - 09/14/2024 8:07 AM EDT Performed at: [facility] [id number] [employer]: Casandra Sanchez MD, Phone: [phone] [facility] Kofi RF MICROWAVE ENGINEER LAB BLOOD ORDERABLES Final Resu lt Performing Organization Address City/[facility]/ZIP Co de Phone Number [facility] 1 * (ABNORMAL) Basic metabolic panel (09/13/2024 3:45 PM EDT) Pathologist [facility] Glucose 107(H) 70 - 99 mg/dL [facility] 1 Blood Urea Nitrogen (BUN) 17 8 - 27 mg/dL [facility] 1 Creatinine 0.89 0.57 - 1.00 mg/dL [facility] 1 eGFR 65 >59 mL/min/1.7 3 [facility] 1 BUN/Creatinine Ratio 19 12 - 28 [facility] 1 Sodium 135 134 - 144 mmol/L [facility] 1 Potassium 4.7 3.5 - 5.2 mmol/L [facility] 1 Chloride 98 96 - 106 mmol/L [facility] 1 Carbon Dioxide 21 20 - 29 mmol/L [facility] 1 Calcium 10.0 8.7 - 10.3 mg/dL [facility] 1 Blood Venous blood specimen / Unknown 09/13/2024 3:45 PM EDT 09/13/2024 Narrative [facility] 1 - 09/14/2024 10:07 AM EDT Performed at: - [facility] [address] [id number] [employer]: Casandra Sanchez MD, Phone: [phone] Sumi Kirby NP LAB BLOOD ORDERABLES Final Resu lt [facility] 1 * (ABNORMAL) Lipid panel (08/16/2021) LDL/HDL Ratio 3 0 - 4 Triglycerides 203(A) 0 - 150 mg/dL Cholesterol 175 0 - 200 mg/dL HDL 71 >=40 mg/dL LDL Cholesterol 64 0 - 100 mg/dL Blood Venous blood specimen / Unknown Historical Provider LAB BLOOD ORDERABLES Genia l Result [...] 6.9%. IMPRESSION: Normal by WHO criteria. [facility] Department of Internal Medicine recommends using [...] alternative screening schedule based on tara Chirinos., [facility] March 17, 2011 for patients with [...] 6.9%. IMPRESSION: Normal by WHO criteria. [facility] Department of Internal Medicine recommendsusing National [...] Insurance MEDICARE MEDICAID - [place] Care Teams Towel Sewer Relationship Specialty Start Date End Date Ayesha Marroquin PA [address] [place] [id number] [facility] - General 12/29/22
--- OUTSIDE RECORDS SUMMARY | 2024-09-18 12:10 | XMS_ITS ---
Author Name [facility] Organization Unknown Care Team Organization Name Specialty Phone Email Start Date End Da te [facility] Star Davenport Primary [facility] 02/08/202310/15 [facility] Beti Carrion Primary Care 11/03/2022 024 [facility] Luis Daniel, PROVIDER Primary Care 01/04/202209/27
--- OUTSIDE RECORDS SUMMARY | 2024-09-18 12:10 | XMS_ITS | Clinical Summary ---
Author Organization [facility] Address [address] [place] [address] Phone Care Team Providers Care School Nurse Name Role Phone Ayesha Marroquin Primary Care Provider [phone] Allergies Active Allergy Reactions Criticality Noted Date Comments Codeine Headaches 09/04/2019 Medications BABY ASPIRIN ORAL Take by mouth daily. Active atorvastatin (LIPITOR) 40 MG tablet Take 40 mg by mouth daily. Active budesonide (PULMICORT FLEXHALER) 180 mcg/actuation inhaler Inhale into the lungs. 02/08/2023 Active busPIRone (BUSPAR) 5 MG tablet Take 1 tablet by mouth 3 (three) times a day. Active cyanocobalamin, vitamin B-12, 500 MCG tablet Take 1 tablet by mouth daily. Active sertraline 150 mg Cap Take 150 mg by mouth. 04/06/2023 Active pantoprazole (PROTONIX) 40 MG tablet Take 40 mg by mouth daily. Active metoprolol tartrate (LOPRESSOR) 25 MG tablet TAKE 1/2 tablet (12.5mg) BY MOUTH TWICE DAILY Active meclizine (ANTIVERT) 25 mg tablet Take 25 mg by mouth 3 (three) times a day as needed. Active meloxicam (MOBIC) 15 MG tablet Take 15 mg by mouth. 09/11/2023 Active LORazepam (ATIVAN) 0.5 MG tablet Take 0.5 mg by mouth nightly at bedtime as needed for anxiety. Active isosorbide mononitrate (IMDUR) 30 MG 24 hr tablet Take 30 mg by mouth daily. Active lisinopril (PRINIVIL,ZESTRI L) 20 MG tablet Take 1 tablet by mouth every morning. 08/07/2023 Active Active Problems No known active problems Social History Tobacco Use Types Packs/Day Years Used Date Smoking Tobacco: Never Assessed Education Answer Date Recorded Are you interested in more education? Not on shima e 10/03/2023 Are you concerned about learning? Not on file 10/03/2023 No 10/03/2023 No 10/03/2023 Digital Access Answer Date Recorded No 10/03/2023 No 10/03/2023 Reliable internet access at home? Not on file 10/03/2023 Device with a working camera? Not on file Comments Unknown Sex and Gender Information Value Date Recorded Sex Assigned at Not on file Legal Sex Female 3:31 PM EDT Gender Identity Not on file Sexual Orientation Not on file Last Filed Vital Signs Vital Sign Reading Time Taken Comments Blood Pressure 150/81 10/03/2023 3:55 PM EDT Pulse 64 10/03/2023 3:55 PM EDT Temperature 36.5 C (97.7 F) 10/03/2023 3:55 PM EDT Respiratory Rate 12 10/03/2023 3:55 PM EDT Oxygen Saturation 98% 10/03/2023 3:55 PM EDT Inhaled Oxygen Concentration - - Weight - - Height - - Body Mass Index - - Plan of Treatment Health Maintenance Due Date Last Done Comments CREATININE LEVEL 1943 POTASSIUM LEVEL 1943 DEPRESSION SCREENING 1955 ZOSTER VACCINES (1 of 2) 1993 OSTEOPOROSIS SCREENING INITI AL (ONE-TIME) 02/15/2008 RSV VACCINE (1 - 1-dose 75+ series) 2018 COVID-19 VACCINE (2023-2 5 season) 2023 03/04/2021, 05/29/2020, 05/08/2020 Adult Td,Tdap Booster 09/03/2030 09/03/2020 , 12/22/2010 PNEUMOCOCCAL VACCINES (50+ years) Completed 12/23/2015, 11/26/2010 HEPATITIS A VACCINES Aged Out No long er eligible based on patient's age to complete this topic HIB VACCINES Aged Out No longer eligi ble based on patient's age to complete this topic MENINGOCOCCAL VACCINES (ACWY) Aged Out No longer eligible based on patient's age to complete this topic MENINGOCOCCAL VACCINES (B) Aged Out N o longer eligible based on patient's age to complete this topic Medical Devices Not on file Insurance MEDICARE PART A & B HEALTH MEDICARE PART A & B [address] [place], [place] [address]HEALTH MEDICARE PART A & [facility] A & B Member Subscriber Plan / Payer (Ef fective 2002-) Name:Rose Whitehead Member ID:[id number] Relation to Subscriber:Self Name:Rose Whitehead Subscriber ID:[id number] Payer ID:[id number] Group ID:Not on file Type:Medicare Address: [employer] [facility] [address] [place] [phone] [facility] MEDICARE PART A & B [facility] Care Teams School Nurse Relationship Specialty Start Date End Date Ayesha Marroquin PA [address] [facility] [address] [place] [address] PCP - General Physician Carpentry Professional 10/03/23 Additional Source Comments The information contained in this document represents components of the legal health record. It is not the complete legal health record.[facility]
--- OUTSIDE RECORDS SUMMARY | 2024-09-18 12:10 | XMS_ITS | Encounter Summary ---
Author Organization [facility] Address [address] [place] [address] Care Team Providers Care Stock Drier Tender Name Role Phone Geoffrey Lynn MD Unavailable Nita Gutierrez NP Unavailable [phone] Ayesha Marroquin PA-C Primary Care Provider Unavail able Encounter Details Date Type Department Care Team Description 09/12/2023 Orders Only Cardio PVC POC 154 [address] [facility] [address] [place] [address] Default, Provider Social History Tobacco Use Types [...] on filedocumented in this encounter Care Teams Stock Drier Tender Relationship Specialty Start Date End Date Ayesha Marroquin PA-C PCP - General Internal Medicine 11/2/23 Geoffrey Lynn MD Specialist Cardiovascular Disease 10/20/20 Nita Gutierrez NP Cardiology 12/28/22 documented as of this encounter
--- OUTSIDE RECORDS SUMMARY | 2024-09-18 12:10 | XMS_ITS | Clinical Summary ---
Author Organization [facility] Address [address] [place] [address] Care Team Providers Care Automation Control Integrator Name Role Phone Maricarmen Thomas MD Primary [...] age to complete this topic Care Teams Automation Control Integrator Relationship Specialty Start Date End Date Maricarmen Thomas MD PCP - General Internal Medicine 07/17/18
== END 2024-09-18 12:17 | disposition home or self-care (01) ==
LOC: HO.HMCFM 11:08
PROVIDERS: PCP Physician Assistant; Visit Provider Physician Assistant
DX: I10 Essential (primary) hypertension (principal); F33.1 Major depressive disorder, recurrent, moderate; R06.09 Other forms of dyspnea; F41.1 Generalized anxiety disorder; E21.3 Hyperparathyroidism, unspecified; R35.0 Frequency of micturition; M25.512 Pain in left shoulder

== ENCOUNTER → 2024-09-18 11:08 | Outpatient (BNVA) | payer MEDICARE, MEDICAID, SELFPAY | PROVIDERS: PCP Physician Assistant; Visit Provider Physician Assistant | DX: I10 Essential (primary) hypertension (principal); R06.09 Other forms of dyspnea; F33.1 Major depressive disorder, recurrent, moderate; F41.1 Generalized anxiety disorder; E21.3 Hyperparathyroidism, unspecified; R35.0 Frequency of micturition; M25.512 Pain in left shoulder | CPT/HCPCS: 99212 ==

== ENCOUNTER 2024-10-17 14:02 | Outpatient (REF) | payer MEDICARE, MEDICAID, SELFPAY ==
[2024-10-17 17:41] LABS: Appearance Urine Clear; Glucose Urine UA Negative (Negative); PH 6.0 (5.0-9.0); Specific Gravity - Urine 1.025 (1.005-1.025)
[2024-10-17 17:54] LABS: MANUAL DIFF FLAG NO
[2024-10-17 17:59] LABS: Hematocrit 31.4 % (37.0-47.0); Hemoglobin 10.5 g/dl (12.0-16.0); Imm Gran Abs Auto 0.01 X10*3/uL (0.00-0.03); Imm Gran Pct Auto 0.3 % (0.0-0.4); Lymphocytes Absolute Auto 1.2 X10*3/uL (1.2-4.9); Mean Corpuscular HGB Conc 33.4 g/dl (31.0-35.0); Mean Corpuscular Hemoglobin 32.1 pg (27.0-33.0); Mean Corpuscular Volume 96.0 fL (80.0-98.0); NRBC Abs Auto 0.000 X10*3/uL (0.0-0.012); NRBC Pct Auto 0.0 /100WBC (0.0-0.2); Platelet Count 186 X10*3/uL (160-400); Red Blood Count 3.27 X10*6/uL (4.20-5.50); White Blood Count 3.7 X10*3/uL (4.8-10.8)
[2024-10-17 18:19] LABS: Alanine Aminotransferase 19 U/L (0-31); Albumin Level 3.8 g/dL (3.5-5.0); Alkaline Phosphatase 79 U/L (39-117); Anion Gap 11 (12-20); Aspartate Amino Transferase 27 U/L (5-31); Blood Urea Nitrogen 12 mg/dL (9-16); Calcium 9.4 mg/dL (8.4-10.2); Carbon Dioxide 24 mmol/L (22-29); Chloride 104 mmol/L (96-108); Estimated Glomerular Filt Rate > 60; Potassium 4.2 mmol/L (3.3-5.1); Sodium 135 mmol/L (135-145); Total Protein 6.7 g/dL (6.5-8.0)
== END 2024-10-17 14:03 | disposition home or self-care (01) ==
LOC: HO.WFDLDS 14:02
PROVIDERS: Internal Medicine Nephrology; PCP Physician Assistant; Visit Provider Physician Assistant
DX: Z13.220 Encounter for screening for lipoid disorders (principal); E87.1 Hypo-osmolality and hyponatremia; T63.451A Toxic effect of venom of hornets, accidental (unintentional), initial encounter; E21.3 Hyperparathyroidism, unspecified; E83.52 Hypercalcemia; D64.9 Anemia, unspecified; F33.1 Major depressive disorder, recurrent, moderate; F41.1 Generalized anxiety disorder; I10 Essential (primary) hypertension; J44.9 Chronic obstructive pulmonary disease, unspecified; E78.2 Mixed hyperlipidemia; R30.0 Dysuria; R73.01 Impaired fasting glucose; M54.50 Low back pain, unspecified; G89.29 Other chronic pain; Z79.82 Long term (current) use of aspirin; Z79.899 Other long term (current) drug therapy
CPT/HCPCS: 36415; 80048; 80076; 81003; 83036; 84443; 85025; 99212

== ENCOUNTER 2024-10-17 14:02 | Outpatient (AMB) | payer MEDICARE, MEDICAID, SELFPAY ==
--- OUTSIDE RECORDS SUMMARY | 2024-10-17 14:11 | XMS_ITS | Clinical Summary ---
Author Organization [facility] Address [address] [place] [address] Care Team Providers Care Financial Auditor Name Role Phone Maricarmen Thomas MD Primary [...] age to complete this topic Care Teams Financial Auditor Relationship Specialty Start Date End Date Maricarmen Thomas MD PCP - General Internal Medicine 07/17/18
--- OUTSIDE RECORDS SUMMARY | 2024-10-17 14:11 | XMS_ITS | Encounter Summary ---
Author Organization [employer] [facility] Address [address] [place] [address] Care Team Providers Care Electrical Hardware Engineer Name Role Phone Geoffrey Lynn MD Unavailable Nita Gutierrez NP Unavailable [phone] Ayesha Marroquin PA-C Primary Care Provider Unavail able Encounter Details Date Type Department Care Team Description 09/12/2023 Orders Only Cardio PVC POC 154 [address] [facility] [address] [place] [address] Default, Provider Social History Tobacco Use Types [...] filedocumented in this encounter Care Teams Electrical Hardware Engineer Relationship Specialty Start Date End Date Ayesha Marroquin PA-C PCP - General Internal Medicine 11/2/23 Geoffrey Lynn MD Specialist Cardiovascular Disease 10/20/20 Nita Gutierrez NP Cardiology 12/28/22 documented as of this encounter
--- OUTSIDE RECORDS SUMMARY | 2024-10-17 14:11 | XMS_ITS | Clinical Summary ---
Author Organization [facility] Address [address] [address] Care Team Providers Care Tree Puller Name Role Phone Ayesha Marroquin PA-C Primary [...] topic Insurance Medicare Medicaid [place] Care Teams Tree Puller Relationship Specialty Start Date End Date Ayesha Marroquin PA-C [address] [place] [id number] PCP - General Physician Pastry Chef 08/23/23
--- OUTSIDE RECORDS SUMMARY | 2024-10-17 14:11 | XMS_ITS | Clinical Summary ---
Author Organization [address] [place] [address] [place] [phone] Phone Care Team Providers Care Remote Ruby On Rails Developer Name Role Phone Ayesha Marroquin Primary Care Provider [phone] Allergies Active Allergy Reactions Criticality Noted Date [...] hours as needed for Flatulence. 2 Active sucralfate (CARAFATE) 1 gram tablet Take 1 tablet by mouth 2 times daily At noon and at bedtime 60 tablet 11 5 Active isosorbide mononitrate (IMDUR) 30 mg 24 hr tablet Take 1 Tablet by mouth daily 30 tablet 5 5 Active magnesium glycinate 100 mg magnesium capsule Take 100 mg (1 capsule total) by mouth at bedtime. Active fluticasone-ume clidinium-vilan terol (Trelegy Ellipta) 200-62.5-25 mcg inhaler Inhale 1 puff (200 mcg total) by mouth 1 (one) time each day. Rinse mouth with water after use to reduce aftertaste and incidence of candidiasis. Do not swallow. Active furosemide (LASIX) 20 mg tablet Take 1 tablet (20 mg total) by mouth 1 (one) time each day. 30 each 5 5 09/19/19 26 Active Active Problems Problem Noted Date Diagnosed [...] Type Department Care Team Description 09/10/2024 Telephone [facility] - [address] [place] [address] Nita Gutierrez NP Shortness of Breath from Last 3 Months Immunizations Name Administration [...] 06/05; 05/30; fingeroth OTHER SURGICAL HISTORY PROCEDURE: [place] CHOLECYSTECTOMY W/EXPLORATION COMMON DUCT FOOT SURGERY PROCEDURE: HISTORICAL FOOT SURGERY; COMMENT: left foot pin placed BUNIONECTOMY PROCEDURE: BUNION SURGERY, SIMPLE REMOVAL; COMMENT: bilateral OTHER SURGICAL HISTORY PROCEDURE: [place] COLECTOMY PRTL W/COLOST/ILEOST & MUCOFISTULA; COMMENT: diverticulitis CERVICAL BIOPSY W/ LOOP ELEC TRODE EXCISION PROCEDURE: HISTORICAL CONE BIOPSY COLONOSCOPY 2003 PROCEDURE: OUTSIDE COLONOSCOPY; COMMENT: tics OTHER SURGICAL [facility]: COLON CA SCRN NOT HI RSK IND; COMMENT: tics and hemorrhoids; would not repeat ESOPHAGOGASTRODUODENOSCOPY [facility]19[facility] PROCEDURE: [place] EGD TRANSORAL BIOPSY SINGLE/MULTIPLE; COMMENT: gastric erythema; nl appearing esophagus, dilated empirically to 20 mm; reactive antral changes w/o H. pylori; nl esoph. bxys SHOULDER SURGERY 01/08/2019 Right PROCEDURE: HISTORICAL SHOULDER SURGERY; COMMENT: arthroplasty; Dr. Clay ESOPHAGOGASTRODUODENOSCOPY 02/18/2021 PROCEDURE: [place] EGD TRANSORAL BIOPSY SINGLE/MULTIPLE; COMMENT: retained bile. [...] (gastroesophageal reflux disease); COMMENT: Dr. Grossman Osteomyelitis ([facility] V24, [facility] V28) 2001 DX:Osteomyelitis ([facility]); COMM ENT: spine Other specified [...] Relation Name Status Comments Brother (Age 45) [place] Daughter Alive 1970 healthy Father (Age 80) ? heart va lve problems, prostate ca, chf Mother (Age 81) lipids, di abetes, double bypass, [place]; CHF Sister 1 Alive thyroid Sister 2 Alive unknown Son Alive 1966 depressio n, drug abuse, suicide attempts; jatinder head injury [...] Description 10/31/2024 1:10 PM EDT Office Visit [facility] [address] [facility] [address] [place] [phone] Nita Gutierrez NP [address] [place] [address] Health Maintenance Due Date Last Done Comments [...] Complete blood count (09/13/2024 3:45 PM EDT) Pathologist [facility] WBC 4.8 3.4 - 10.8 x10E3/uL [facility] [...] 6:07 AM EDT Performed at: 01 - [facility] [address] [id number] Technology Applications Teacher: Casandra Sanchez MD, Phone: [phone] us Sumi Kirby NP LAB BLOOD ORDERABLES Final Resu lt [facility] 1 * (ABNORMAL) B-type natriuretic peptide (09/13/2024 3:45 PM EDT) Pathologist [facility] B-Type Natriuretic Peptide 131.2(H) 0.0 - 100.0 pg/mL [facility] 1 Comment:[employer] XP methodology Blood Venous blood specimen / Unknown 09/13/2024 3:45 PM EDT 09/13/2024 Narrative [facility] 1 - 09/14/2024 8:07 AM EDT Performed at: - [facility] [address] [id number] Technology Applications Teacher: Casandra Sanchez MD, Phone: [phone] Sumi Kirby NP LAB BLOOD ORDERABLES Final Resu lt Performing Organization Address City/[facility]/ZIP Co de Phone Number [facility] 1 * (ABNORMAL) Basic metabolic panel (09/13/2024 3:45 PM EDT) Glucose 107(H) 70 - 99 mg/dL [facility] [...] 09/14/2024 10:07 AM EDT Performed at: - [facility] [address] [id number] Technology Applications Teacher: Casandra Sanchez MD, Phone: [phone] Sumi Kirby NP LAB BLOOD ORDERABLES Final Resu lt Performing Organization Address City/[facility]/ZIP Co de Phone Number [facility] 1 * (ABNORMAL) Lipid panel (08/16/2021) LDL/HDL Ratio 3 0 - 4 Triglycerides 203(A) 0 - 150 mg/dL Cholesterol 175 0 - 200 mg/dL HDL 71 >=40 mg/dL LDL Cholesterol 64 0 - 100 mg/dL Blood Venous blood specimen / Unknown us Historical Provider LAB BLOOD ORDERABLES Genia bernal Result * DXA BONE DENSITY STUDY 1+ [...] 6.9%. IMPRESSION: Normal by WHO criteria. [facility] Department of Internal Medicine recommends using National [...] alternative screening schedule based on tara Chirinos., [facility] March 17, 2011 for patients with [...] 6.9%. IMPRESSION: Normal by WHO criteria. [facility] Department of Internal Medicine recommendsusing National Osteoporosis [...] alternative screening schedule based on tara Chirinos., [place] 2011 for patients with osteopenia (based [...] Insurance MEDICARE MEDICAID - [place] Care Teams Remote Ruby On Rails Developer Relationship Specialty Start Date End Date Ayesha Marroquin PA [address] [place] [address] PCP - General 12/29/22
--- OUTSIDE RECORDS SUMMARY | 2024-10-17 14:11 | XMS_ITS | Clinical Summary ---
Author Organization [facility] Address [address] [place] [id number] Phone Care Team Providers Care Cabinet Assembler Name Role Phone Ayesha Marroquin Primary Care Provider [phone] Allergies Active Allergy Reactions Criticality Noted Date [...] B HEALTH MEDICARE PART A & B [address] [place], [place] [address]HEALTH MEDICARE PART A & B [facility] MEDICARE PART A & B [facility] Care Teams Cabinet Assembler Relationship Specialty Start Date End Date Ayesha Marroquin PA [address] [facility] [address] [place] [address] PCP - General Physician Central Supply Manager 10/03/23 Additional Source Comments The information contained in this document represents components of the legal health record. It is not the complete legal health record.[facility]
--- NOTE | 2024-10-17 14:12 | MHC.PC.OV ---
Vital Signs 10/17/24 14:15 Height 5 ft 3 in Weight 192 lb BMI 34.0 BP 132/80 Blood Pressure Location Rt brachial Position Sitting Respiration 14 Pulse 75 Pulse Source Pulse Oximeter Temp 98.6 F Temp Source Oral Pulse Oximetry (%) 95 Oxygen Delivery Method Room Air Intake Visit Reasons: 30 min follow up Intake Note: Follow up. Was supposed to be taking Lasix, ordered by [employer] ticket seller. Pt did not want to take due to urinary incontinence while sick and coughing. Um Rn Required: No Allergies codeine Allergy (Intermediate, Verified 10/17/24 14:16) headache duloxetine (From Cymbalta) Allergy (Mild, Verified 10/17/24 14:16) Itching Medication List - Last Reconciled 10/17/24 by Ayesha Marroquin PA-C acetaminophen 1,000 mg (2 x 500 mg) PO Q6H PRN albuterol sulfate 90 mcg/actuation 2 puffs inhalation Q6H PRN 30 days aspirin 81 mg PO DAILY atorvastatin 40 mg PO DAILY biotin mcg PO DAILY Breo Ellipta 200-25 mcg/dose (fluticasone furoate-vilanterol) 1 inh inhalation DAILY NS cholecalciferol (vitamin D3) 50 mcg PO DAILY diclofenac sodium 1% 4 grams topical QID PRN diclofenac sodium 1% (Voltaren Arthritis Pain) 2 grams topical BID docusate sodium 100 mg PO DAILY docusate sodium 100 mg PO BID fluticasone propionate 50 mcg/actuation (Allergy Relief (fluticasone)) 1 spray intranasal DAILY inhalational spacing device (Aerochamber Plus Z Stat spacer) As directed isosorbide mononitrate ER 30 mg PO DAILY lidocaine 5% 1 patch topical DAILY lorazepam 1 mg (2 x 0.5 mg) PO BEDTIME PRN 30 days magnesium glycinate 100 mg PO DAILY meloxicam 15 mg PO DAILY metoprolol tartrate 12.5 mg PO BID uk-jhf-rexzi-calcium carb-K1 400 mcg-500 mg calcium-20 mcg (Women's 50 Plus Multivitamin) tabs PO pantoprazole 40 mg PO DAILY sertraline 150 mg (1.5 x 100 mg) PO DAILY 90 days simethicone 80 mg PO Q6H PRN sucralfate 1 g PO BID tramadol 50 mg PO BID PRN 30 days vitamins A,C,M-lotp-puqlot 4,296 mcg-226 mg-90 mg (PreserVision AREDS) 1 cap PO BID Tobacco use date assessed: 06/19/24 Dental Screening Dental Screen Date: 06/08/23 HPI 30 min follow up HPI Details Patient is an 79-year-old female who presents today for a follow up. CV: Blood pressure today in the office is 132/80. She is currently on metoprolol 12.5 mg twice a day, isosorbide 30 mg daily. Cholesterol is controlled with atorvastatin 40 mg. She had a neg stress and cath in 2023 despite the calcifications seen on CT. Has cardiology follow up with [facility]. Pulm: Sees pulmonology and was recently on breo, likes it better than trelegy. Has albuterol to use as needed. -She was sick for about 2-3 weeks from August- beginning of September and felt better after pred taper, zpak. She had a neg cxr at [facility]. Heme: Follows with Dr. Contreras at [facility].. She sees him q 6 months for anemia and mgus. Saw GI for a colonoscopy and endoscopy in 2019 (no report available) Nephro: following with Dr. Barrera and fluid restricted for the hyponatremia. Endo: She was following with endo for hyperparathyroidism in [place] but does not like him and is now booked for a second opinion in September. Musculoskeletal: following with [facility] for ongoing left shoulder pain. She fell on it in May and has had constant pain since then. Reports having imaging. She sees them again in a couple weeks. The meloxicam is minimally helpful. She has had her hip replaced and feels that at times it is still stiff. Her main concern is her mid back and low back pain. She used to follow with Dr. Grayson for years for injections. It has been 3 years since her injection. Psych: Has a new therapist named Edmar. She is seeing a psychiatrist at the end of the month. She is currently on zoloft, buspar, and ativan. usually forgets buspar and finds it ineffective. She is tearful today. She has a lot of stress and anxiety. She feels that her depression is exacerbated. She is fighting with her daughter right now and her son is another stressor for her with his depression/sa and homelessness. She denies any SI/HI. Derm: Followed with Dermatology for her hair growth and they told her that there was nothing really she could do besides that. [facility] Medical History (Updated 10/17/24 @ 14:41 by Ayesha Marroquin PA-C) Contusion of left arm Contusion of left lower extremity Insomnia Chronic fatigue IBS (irritable bowel syndrome) GERD (gastroesophageal reflux disease) Osteoporosis Fibromyalgia Depression, major, recurrent, moderate Generalized anxiety disorder CAD (coronary artery disease) Hyperlipidemia HTN (hypertension), benign Diverticulitis FHx: total knee replacement Surgical History S/P hip replacement H/O shoulder replacement Social History Housing: Other Housing Other:: Mobile home Alcohol intake: current Patient Tobacco Use Status: Former Tobacco user Tobacco use type: Cigarette Years Smoked: 16 years total. Smoked socially. quit 25 years ago e-Cigarette/Vaping Use: Never Used Second Hand Smoke Exposure: Yes service: No Current occupational status: retired Cognitive needs: No Hearing needs: No Vision needs: No Questionnaire Thrive Questionnaire Date Thrive assessed: 05/13/24 I am a: Patient What is your living situation today?: I have a steady place to live Within the past 12 months, did the food you bought not last and you didn't have the money to get more?: I choose not to answer this question Within the past 12 months, did you worry whether your food would run out before you got money to buy more?: Sometimes True Do you have trouble paying for medicines?: No Do you have trouble getting transportation to medical appointments?: No Do you have trouble paying your heating and electricity bill?: Yes Do you have trouble taking care of your child, family member or friend?: No Do you have trouble with day-to-day activities such as bathing, preparing meals, shopping, managing finances, etc.?: I choose not to answer this question Are you currently unemployed and looking for a job?: I choose not to answer this question Are you interested in more education?: No Please select the resources that you would like help with: Utilities Currently or been in a relationship where the following occur: No concerns reported THRIVE Score: 2 MAYTE-7 AMB Questionnaire MAYTE-7 Date MAYTE - 7 assessed: 06/08/23 Feeling nervous, anxious, or on edge: 1 = Several days Trouble relaxin = Not at all Being so restless that it is hard to sit still: 1 = Several days Becoming easily annoyed or irritable: 0 = Not at all Feeling afraid as if something awful might happen: 0 = Not at all Source: Developed by Drs. Johnathan Landeros, Yanelis Maldonado, Dutch Vogel and colleagues, with an educational rabmo from [employer]. Physical exam (Primary Care) Vital Signs: Last Vital Signs Temp 98.6 F 10/17/24 14:15 Pulse 75 10/17/24 14:15 Resp 14 10/17/24 14:15 BP 132/80 10/17/24 14:15 Pulse Ox 95 10/17/24 14:15 Oxygen Delivery Method Room Air 10/17/24 14:15 BMI result Body Mass Index 34.0 Tobacco/Smoking Status: Tobacco use Status Tobacco use date assessed 06/19/24 10/17/24 14:24 Patient Tobacco Use Status Former Tobacco user 10/17/24 14:24 Tobacco use type Cigarette 10/17/24 14:24 e-Cigarette/Vaping Use Never Used 10/17/24 14:24 Thrive Assessment: Date of Thrive Assessment Date Thrive assessed 05/13/24 10/17/24 14:24 Currently or been in a relationship where the following occur: No concerns reported Const Orientation/consciousness: patient oriented x3 HENMT Ears: hearing grossly normal bilaterally Neck Thyroid: Thyroid normal Lymphatic: no lymphadenopathy noted Resp Auscultation: clear to auscultation bilaterally Cardio Rate: regular rate Rhythm: regular rhythm Heart sounds: S1 normal heart sound present and S2 normal heart sound present GI Inspection: Yes normal to inspection Palpation (GI): Soft to palpation and Other GI palpation findings present (nontender, no cva tenderness) Auscultation: normoactive bowel sounds Rectal Exam - Female: deferred Skin General skin exam: no rashes or lesions noted Neuro General: patient oriented x3, gait normal and no focal motor deficits Coding Level of Care Code Est Pt Level 4 (91395) Complex EM visit Add On G2211 Diagnoses HTN (hypertension), benign I10 Mixed hyperlipidemia E78.2 Hyperlipidemia type: mixed hyperlipidemia Anemia, unspecified type D64.9 Anemia type: unspecified type Chronic obstructive pulmonary disease, unspecified COPD type J44.9 COPD type: unspecified COPD Chronic low back pain M54.50; G89.29 Generalized anxiety disorder F41.1 Depression, major, recurrent, moderate F33.1 Assessment & Plan Assessment & Plan (1) HTN (hypertension), benign: Code(s): I10 - Essential (primary) hypertension Category: Medical Plan: wnl (2) Hyperlipidemia: Code(s): E78.5 - Hyperlipidemia, unspecified Category: Medical Qualifiers: Hyperlipidemia type: mixed hyperlipidemia Qualified Code(s): E78.2 - Mixed hyperlipidemia Plan: continue current plan (3) Anemia, unspecified: Code(s): D64.9 - Anemia, unspecified Category: Medical Qualifiers: Anemia type: unspecified type Qualified Code(s): D64.9 - Anemia, unspecified Plan: [facility] (4) COPD (chronic obstructive pulmonary disease): Code(s): J44.9 - Chronic obstructive pulmonary disease, unspecified Category: Medical Qualifiers: COPD type: unspecified COPD Qualified Code(s): J44.9 - Chronic obstructive pulmonary disease, unspecified Plan: improved with breo, rarely use albuterol (5) Chronic low back pain: Code(s): M54.50 - Low back pain, unspecified; G89.29 - Other chronic pain Category: Medical Plan: xrays ordered referral to physiatry will start tramadol discussed risks and benefits and adverse effects. She been on this in the past. (6) Generalized anxiety disorder: Code(s): F41.1 - Generalized anxiety disorder Category: Medical Plan: stop buspirone cotninue zoloft and ativan (7) Depression, major, recurrent, moderate: Code(s): F33.1 - Major depressive disorder, recurrent, moderate Category: Medical Plan: as above seeing psychiatry and therapist this week Orders: Orders Basic Metabolic Panel Today D64.9 - Anemia, unspecified, E78.2 - Mixed hyperlipidemia, E87.1 - Hypo-osmolality and hyponatremia, I10 - Essential (primary) hypertension, J44.9 - Chronic obstructive pulmonary disease, unspecified Liver Panel Today D64.9 - Anemia, unspecified, E78.2 - Mixed hyperlipidemia, E87.1 - Hypo-osmolality and hyponatremia, I10 - Essential (primary) hypertension, J44.9 - Chronic obstructive pulmonary disease, unspecified UA CC w/rflx Micro + Cult Today D64.9 - Anemia, unspecified, E78.2 - Mixed hyperlipidemia, E87.1 - Hypo-osmolality and hyponatremia, I10 - Essential (primary) hypertension, J44.9 - Chronic obstructive pulmonary disease, unspecified, R30.0 - Dysuria Hemoglobin A1c Today D64.9 - Anemia, unspecified, E78.2 - Mixed hyperlipidemia, E87.1 - Hypo-osmolality and hyponatremia, I10 - Essential (primary) hypertension, J44.9 - Chronic obstructive pulmonary disease, unspecified, R73.01 - Impaired fasting glucose Complete Blood Count Auto Diff Today D64.9 - Anemia, unspecified, E78.2 - Mixed hyperlipidemia, E87.1 - Hypo-osmolality and hyponatremia, I10 - Essential (primary) hypertension, J44.9 - Chronic obstructive pulmonary disease, unspecified TSH reflex Free T4 Today D64.9 - Anemia, unspecified, E78.2 - Mixed hyperlipidemia, E87.1 - Hypo-osmolality and hyponatremia, I10 - Essential (primary) hypertension, J44.9 - Chronic obstructive pulmonary disease, unspecified XR lumbar spine 2-3V Today M54.50 - Low back pain, unspecified XR thoracic spine 3V Today M54.6 - Pain in thoracic spine Referrals Physiatry Referral G89.29 - Other chronic pain, M54.50 - Low back pain, unspecified Medications: New tramadol 50 mg PO BID PRN 60 tabs 0RF pain 30 days Refilled lidocaine 5% leave on most painful area for up to 12 hrs 1 patch topical DAILY 30 ea 3RF
[2024-10-17 14:15] VITALS: BP 132/80; PULSE 75; RESP 14; TEMP 37; O2SAT 95; BMI 34.0
== END 2024-10-17 14:55 | disposition home or self-care (01) ==
LOC: HO.HMCFM 14:03
PROVIDERS: PCP Physician Assistant; Visit Provider Physician Assistant
DX: I10 Essential (primary) hypertension (principal); J44.9 Chronic obstructive pulmonary disease, unspecified; F33.1 Major depressive disorder, recurrent, moderate; E78.2 Mixed hyperlipidemia; D64.9 Anemia, unspecified; M54.50 Low back pain, unspecified; G89.29 Other chronic pain; F41.1 Generalized anxiety disorder

== ENCOUNTER 2024-10-23 13:20 | Outpatient (AMB) | payer MEDICARE, MEDICAID, SELFPAY ==
--- NOTE | 2024-10-23 13:22 | MHC.OFFVIS ---
Vital Signs 10/23/24 13:23 Height 5 ft 3 in Weight 190 lb 6 oz BMI 33.7 BP 110/70 Blood Pressure Location Rt brachial Position Sitting Pulse 77 Pulse Source Pulse Oximeter Pulse Oximetry (%) 99 Oxygen Delivery Method Room Air Intake Visit Reasons: COPD Allergies codeine Allergy (Intermediate, Verified 10/23/24 13:26) headache duloxetine (From Cymbalta) Allergy (Mild, Verified 10/23/24 13:26) Itching HPI HPI COPD: Details: Rose is a pleasant 79 year female, former smoker with less than 10 pack year history, quit 20 years ago with underlying COPD, HTN, fibromyalgia, osteoporosis and h/o MGUS under the care of Dr. Contreras. She reports worsening dyspnea over the last few weeks despite the use of Breo. Denies cough, wheezing or chest tightness. She also notes worsening BLE edema and has not been taking lasix, prescribed by cardiology. Since the last visit she reports URI where she was treated with a zpak and prednisone with resolution of bronchitic symptoms. CXR unremarkable. Previously she reported possible apneic events and paroxsymal nocturnal dyspnea with associated daytime fatigue. Sleep study scheduled in November. [facility] Medical History (Updated 10/17/24 @ 14:41 by Ayesha Marroquin PA-C) Contusion of left arm Contusion of left lower extremity Insomnia Chronic fatigue IBS (irritable bowel syndrome) GERD (gastroesophageal reflux disease) Osteoporosis Fibromyalgia Depression, major, recurrent, moderate Generalized anxiety disorder CAD (coronary artery disease) Hyperlipidemia HTN (hypertension), benign Diverticulitis FHx: total knee replacement Surgical History S/P hip replacement H/O shoulder replacement Social History Housing: Other Housing Other:: Mobile home Alcohol intake: current Patient Tobacco Use Status: Former Tobacco user Tobacco use type: Cigarette Years Smoked: 16 years total. Smoked socially. quit 25 years ago e-Cigarette/Vaping Use: Never Used Second Hand Smoke Exposure: Yes service: No Current occupational status: retired Cognitive needs: No Hearing needs: No Vision needs: No Review of Systems Const Denies chills, Denies excessive sweating, Denies fever(s), Denies headache(s) and Denies night sweats Eyes Denies dry eyes, Denies irritation and Denies itchy eyes ENT Reports Normal hearing present, Denies headache(s), Denies nasal congestion, Denies nasal discharge and Denies sore throat Card Denies chest pain, Denies chest pain at rest, Denies chest pain with activity, Denies claudication, Reports leg edema, Reports dyspnea on exertion, Denies orthopnea and Denies paroxysmal nocturnal dyspnea Resp Denies chest congestion, Denies cough, Denies excessive phlegm production, Denies pain on inspiration, Denies pain with cough, Reports dyspnea on exertion, Denies stridor and Denies wheezing Musc Denies myalgias Neuro Reports Normal hearing present and Denies headache(s) Endo Denies excessive sweating Rodolfo/Lymph Denies lymphadenopathy Aller/Immun Denies itchy eyes, Denies seasonal rhinorrhea and Denies wheezing Physical Exam Vital Signs: Last Vital Signs Pulse 77 10/23/24 13:23 BP 110/70 10/23/24 13:23 Pulse Ox 99 10/23/24 13:23 Oxygen Delivery Method Room Air 10/23/24 13:23 BMI result Body Mass Index 33.7 Const General: cooperative, healthy appearing, comfortable, no acute distress, well developed and alert Nutritional Appearance: obese Orientation/consciousness: patient oriented x3 Limitations: no limitations HEENT Head: Yes normal to inspection, Yes normocephalic and Yes atraumatic Ears: hearing grossly normal bilaterally and external ears normal Eyes General: appearance normal, both eyes and all related structures Eyelids: Yes eyelids normal Sclerae: sclerae normal EOM: EOMs intact bilaterally Neck Neck: Yes normal visual inspection and Yes no lymphadenopathy Lymphatic: no lymphadenopathy noted Chest Chest palpation & inspection: normal inspection of the chest Resp Effort & Inspection: normal respiratory effort, able to speak in complete sentences, no audible wheezes, no cough, no stridor, not tachypneic, no tripod positioning and no use of accessory muscles Auscultation: clear to auscultation bilaterally Cardio Jugular venous distension: no JVD Rate: regular rate Rhythm: regular rhythm Skin Other: warm, dry General skin exam: no rashes or lesions noted Neuro General: patient oriented x3 Cranial nerves: Yes Normal hearing present Cognition (Neuro): normal cognition Gait exam (Neuro): Normal gait present Extrem Other: 1+ pitting edema Psych Appearance: grossly normal and well kempt Speech and movement: Normal speech and movement present and Clear speech present Affect: normal affect Attitude: cooperative Thought process: Normal thought process present Thought content: Normal thought content present Insight: Good insight present (Psych) Judgement: Good judgement present (Psych) Results Reviewed Results Reviewed: RESULT: Chest 2 Views Frontal and Lat Chest 2 Views Frontal and Lat INDICATION/CLINICAL QUESTION: Reason: pIN / TECHNIQUE: Frontal and lateral views of the chest. COMPARISON: 08/21/2023. FINDINGS: LINES AND TUBES: None. LUNGS AND PLEURA: RIGHT CHEST: The right lung is clear and there is no right effusion. LEFT CHEST: The left lung is clear and there is no left effusion. HEART, MEDIASTINUM AND LORRAINE: The heart is of normal size. The mediastinum and lorraine are normal. BONES AND SOFT TISSUES: No acute bony abnormality. IMPRESSION: 1. No active disease in chest. WSN: [id number] Ordering Physician: Ayesha Marroquin Reason For Exam pIN Signature Line Dictated By: Lito Putnam MD Dictated Date/Time: 09/25/24 6:47 pm Reviewed By: Lito Putnam MD Signed By: Lito Putnam MD Signed Date/Time: 09/25/24 6:47 pm Transcribed By: BO Transcribed Date/Time: 09/25/24 6:47 pm Assessment & Plan Assessment & Plan (1) COPD (chronic obstructive pulmonary disease): Code(s): J44.9 - Chronic obstructive pulmonary disease, unspecified Category: Medical Qualifiers: COPD type: unspecified COPD Qualified Code(s): J44.9 - Chronic obstructive pulmonary disease, unspecified (2) Personal history of tobacco use: Code(s): Z87.891 - Personal history of nicotine dependence Category: Social Hx (3) Pulmonary nodule: Code(s): R91.1 - Solitary pulmonary nodule Category: Medical (4) Daytime somnolence: Code(s): R40.0 - Somnolence Category: Medical Plan Rose reports moderate control with the use of Breo, previously trialed Trelegy however she feels Breo works better, advised to continue. She also notes worsening dyspnea, not taking lasix. Discussed importance of compliance with medication which she was agreeable to restart. She is aware if symptoms worsen to seek emergent care. She has upcoming home sleep study to assess for underlying KAY. She has upcoming chest CT to assess stability of new 2mm nodule seen on prior CT 12/2023. All questions were answered and patient is in agreement of plan. Will follow-up in 6-8 weeks or sooner if needed. Coding Level of Care Code Est Pt Level 4 (14595) Diagnoses Chronic obstructive pulmonary disease, unspecified COPD type J44.9 COPD type: unspecified COPD Personal history of tobacco use Z87.891 Pulmonary nodule R91.1 Daytime somnolence R40.0
[2024-10-23 13:23] VITALS: BP 110/70; PULSE 77; O2SAT 99; BMI 33.7
== END 2024-10-23 13:55 | disposition home or self-care (01) ==
LOC: HO.HPSW 13:21
PROVIDERS: PCP Physician Assistant; Visit Provider Nurse Practitioner Family
DX: J44.9 Chronic obstructive pulmonary disease, unspecified (principal); Z87.891 Personal history of nicotine dependence; R91.1 Solitary pulmonary nodule; R40.0 Somnolence
CPT/HCPCS: 99214

== ENCOUNTER → 2024-10-23 13:20 | Outpatient (BNVA) | payer MEDICARE, MEDICAID, SELFPAY | PROVIDERS: PCP Physician Assistant; Visit Provider Nurse Practitioner Family | DX: R91.1 Solitary pulmonary nodule (principal); R40.0 Somnolence; J44.9 Chronic obstructive pulmonary disease, unspecified; Z87.891 Personal history of nicotine dependence | CPT/HCPCS: 99212 ==

== ENCOUNTER 2024-12-04 15:36 | Outpatient (AMB) | payer MEDICARE, MEDICAID, SELFPAY ==
--- NOTE | 2024-12-04 15:40 | MHC.PC.OV ---
Vital Signs 12/04/24 15:41 12/04/24 15:51 Height 5 ft 3 in Weight 192 lb 2 oz BMI 34.0 BP 136/92 H 146/92 H Blood Pressure Location Rt brachial Rt brachial Position Sitting Sitting Respiration 14 Pulse 72 Pulse Source Pulse Oximeter Temp 97.7 F Temp Source Oral Pulse Oximetry (%) 98 Oxygen Delivery Method Room Air Intake Visit Reasons: anxiety, pain med, etc 30 min Intake Note: Follow up. having loose stool. Fecal incontinence. Found cyclobenzaprine left over at home to leg cramp in left leg. 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 Allergies codeine Allergy (Intermediate, Verified 12/04/24 15:45) headache duloxetine (From Cymbalta) Allergy (Mild, Verified 12/04/24 15:45) Itching Medication List - Last Reconciled 12/04/24 by Ayesha Marroquin PA-C acetaminophen 1,000 mg (2 x 500 mg) PO Q6H PRN albuterol sulfate 90 mcg/actuation 2 puffs inhalation Q6H PRN 30 days aspirin 81 mg PO DAILY atorvastatin 40 mg PO DAILY Breo Ellipta 200-25 mcg/dose (fluticasone furoate-vilanterol) 1 inh inhalation DAILY NS cholecalciferol (vitamin D3) 50 mcg PO DAILY diclofenac sodium 1% 4 grams topical QID PRN diclofenac sodium 1% (Voltaren Arthritis Pain) 2 grams topical BID docusate sodium 100 mg PO DAILY docusate sodium 100 mg PO BID fluticasone propionate 50 mcg/actuation (Allergy Relief (fluticasone)) 1 spray intranasal DAILY inhalational spacing device (Aerochamber Plus Z Stat spacer) As directed isosorbide mononitrate ER 30 mg PO DAILY lidocaine 5% 1 patch topical DAILY lorazepam 1 mg (2 x 0.5 mg) PO BEDTIME PRN 30 days meloxicam 15 mg PO DAILY metoprolol tartrate 12.5 mg PO BID qy-lkn-btdwr-calcium carb-K1 400 mcg-500 mg calcium-20 mcg (Women's 50 Plus Multivitamin) tabs PO pantoprazole 40 mg PO DAILY sertraline 150 mg (1.5 x 100 mg) PO DAILY 90 days simethicone 80 mg PO Q6H PRN sucralfate 1 g PO BID tramadol 50 mg PO BID PRN 30 days vitamins A,C,H-xeoy-qofljk 4,296 mcg-226 mg-90 mg (PreserVision AREDS) 1 cap PO BID Tobacco use date assessed: 06/19/24 Dental Screening Dental Screen Date: 06/08/23 HPI anxiety, pain med, etc 30 min HPI Details Patient is an 79-year-old female who presents today for a follow up. CV: Blood pressure today in the office is 136/92. She is currently on metoprolol 12.5 mg twice a day, isosorbide 30 mg daily. Cholesterol is controlled with atorvastatin 40 mg. She had a neg stress and cath in 2023 despite the calcifications seen on CT. Has cardiology follow up with [facility]. Pulm: Sees pulmonology and was recently on breo, likes it better than trelegy. Has albuterol to use as needed. Heme: Follows with Dr. Contreras at [facility].. She sees him q 6 months for anemia and mgus. Saw GI for a colonoscopy and endoscopy in 2019 (no report available) GI: States for many years she has had episodes where she would choke on her food but recently over the last couple of months it has gotten worse. She cuts her food very small and feels like she has a drink water after each bite. No weight loss. No abdominal pain or heartburn. No nausea, vomiting or diarrhea. Nephro: following with Dr. Barrera and fluid restricted for the hyponatremia. Endo: She was following with endo for hyperparathyroidism Musculoskeletal: She was referred to physiatry and has not seen Dr. Grayson yet. She used to see him for injections and looks forward to this appointment. She is currently on meloxicam and Tylenol for pain. Intermittently use of tramadol and feels good relief of symptoms with this. Wondering if she can take this more consistently. Psych: Has a new therapist named Edmar. She is seeing a psychiatrist at the end of the month. She is currently on zoloft, buspar, and ativan. usually forgets buspar and finds it ineffective. She is tearful today. She has a lot of stress and anxiety. She feels that her depression is exacerbated. She denies any SI/HI. Derm: Followed with Dermatology for her hair growth and they told her that there was nothing really she could do besides that. [facility], [facility] Medical History (Updated 12/04/24 @ 16:11 by Ayesha Marroquin PA-C) Contusion of left arm Contusion of left lower extremity Insomnia Chronic fatigue IBS (irritable bowel syndrome) GERD (gastroesophageal reflux disease) Osteoporosis Fibromyalgia Depression, major, recurrent, moderate Generalized anxiety disorder CAD (coronary artery disease) Hyperlipidemia HTN (hypertension), benign Diverticulitis FHx: total knee replacement Surgical History S/P hip replacement H/O shoulder replacement Social History Housing: Other Housing Other:: Mobile home Alcohol intake: current Patient Tobacco Use Status: Former Tobacco user Tobacco use type: Cigarette Years Smoked: 16 years total. Smoked socially. quit 25 years ago e-Cigarette/Vaping Use: Never Used Second Hand Smoke Exposure: Yes service: No Current occupational status: retired Cognitive needs: No Hearing needs: No Vision needs: No Questionnaire Thrive Questionnaire Date Thrive assessed: 05/13/24 I am a: Patient What is your living situation today?: I have a steady place to live Within the past 12 months, did the food you bought not last and you didn't have the money to get more?: I choose not to answer this question Within the past 12 months, did you worry whether your food would run out before you got money to buy more?: Sometimes True Do you have trouble paying for medicines?: No Do you have trouble getting transportation to medical appointments?: No Do you have trouble paying your heating and electricity bill?: Yes Do you have trouble taking care of your child, family member or friend?: No Do you have trouble with day-to-day activities such as bathing, preparing meals, shopping, managing finances, etc.?: I choose not to answer this question Are you currently unemployed and looking for a job?: I choose not to answer this question Are you interested in more education?: No Please select the resources that you would like help with: Utilities Currently or been in a relationship where the following occur: No concerns reported THRIVE Score: 2 MAYTE-7 AMB Questionnaire MAYTE-7 Date MAYTE - 7 assessed: 06/08/23 Source: Developed by Drs. Johnathan Landeros, Yanelis Maldonado, Dutch Vogel and colleagues, with an educational rambo from [employer]. Physical exam (Primary Care) Vital Signs: Last Vital Signs Temp 97.7 F 12/04/24 15:41 Pulse 72 12/04/24 15:41 Resp 14 12/04/24 15:41 BP 146/92 H 12/04/24 15:51 Pulse Ox 98 12/04/24 15:41 Oxygen Delivery Method Room Air 12/04/24 15:41 BMI result Body Mass Index 34.0 Tobacco/Smoking Status: Tobacco use Status Tobacco use date assessed 06/19/24 12/04/24 15:54 Patient Tobacco Use Status Former Tobacco user 12/04/24 15:54 Tobacco use type Cigarette 12/04/24 15:54 e-Cigarette/Vaping Use Never Used 12/04/24 15:54 Thrive Assessment: Date of Thrive Assessment Date Thrive assessed 05/13/24 12/04/24 15:54 Currently or been in a relationship where the following occur: No concerns reported Const Orientation/consciousness: patient oriented x3 HENMT Ears: hearing grossly normal bilaterally Neck Thyroid: Thyroid normal Lymphatic: no lymphadenopathy noted Resp Auscultation: clear to auscultation bilaterally Cardio Rate: regular rate Rhythm: regular rhythm Heart sounds: S1 normal heart sound present and S2 normal heart sound present GI Inspection: Yes normal to inspection Palpation (GI): Soft to palpation and Other GI palpation findings present (nontender, no cva tenderness) Auscultation: normoactive bowel sounds Rectal Exam - Female: deferred Skin General skin exam: no rashes or lesions noted Neuro General: patient oriented x3, gait normal and no focal motor deficits Coding Level of Care Code Est Pt Level 4 (44927) Complex EM visit Add On G2211 Diagnoses HTN (hypertension), benign I10 Anemia, unspecified type D64.9 Anemia type: unspecified type Chronic low back pain M54.50; G89.29 Dysphagia R13.10 Assessment & Plan Assessment & Plan (1) HTN (hypertension), benign: Code(s): I10 - Essential (primary) hypertension Category: Medical Plan: Discussed that blood pressure is a little elevated above goal today. She is tearful in the office with her back pain and life stressors. She states blood pressures have been normal at home. I will bring her back in in a few weeks to recheck this. (2) Anemia, unspecified: Code(s): D64.9 - Anemia, unspecified Category: Medical Qualifiers: Anemia type: unspecified type Qualified Code(s): D64.9 - Anemia, unspecified Plan: We will continue to monitor. Labs ordered. (3) Chronic low back pain: Code(s): M54.50 - Low back pain, unspecified; G89.29 - Other chronic pain Category: Medical Plan: Use tramadol twice a day (4) Dysphagia: Code(s): R13.10 - Dysphagia, unspecified Category: Medical Plan: Barium swallow ordered. Referral to GI She will let me know if anything worsens or changes prior to our follow up. Orders: Orders Comprehensive Met. Panel 12/04/24 D64.9 - Anemia, unspecified, G89.29 - Other chronic pain, I10 - Essential (primary) hypertension, M54.50 - Low back pain, unspecified Complete Blood Count Auto Diff 12/04/24 D64.9 - Anemia, unspecified, G89.29 - Other chronic pain, I10 - Essential (primary) hypertension, M54.50 - Low back pain, unspecified IRON PROFILE 12/04/24 D64.9 - Anemia, unspecified, G89.29 - Other chronic pain, I10 - Essential (primary) hypertension, M54.50 - Low back pain, unspecified TSH reflex Free T4 12/04/24 D64.9 - Anemia, unspecified, G89.29 - Other chronic pain, I10 - Essential (primary) hypertension, M54.50 - Low back pain, unspecified Magnesium 12/04/24 D64.9 - Anemia, unspecified, G89.29 - Other chronic pain, I10 - Essential (primary) hypertension, M54.50 - Low back pain, unspecified Liver Panel 12/04/24 D64.9 - Anemia, unspecified, G89.29 - Other chronic pain, I10 - Essential (primary) hypertension, M54.50 - Low back pain, unspecified [place] barium swallow 12/04/24 R13.10 - Dysphagia, unspecified Referrals Gastroenterology Referral R13.10 - Dysphagia, unspecified Medications: Refilled tramadol 50 mg PO BID PRN 60 tabs 0RF pain 30 days Patient Instructions: stop magnesium stop cyclobenzaprine
[2024-12-04 15:41] VITALS: BP 136/92; PULSE 72; RESP 14; TEMP 36.5; O2SAT 98; BMI 34.0
[2024-12-04 15:51] VITALS: BP 146/92
== END 2024-12-04 16:20 | disposition home or self-care (01) ==
LOC: HO.HMCFM 15:37
PROVIDERS: PCP Physician Assistant; Visit Provider Physician Assistant
DX: I10 Essential (primary) hypertension (principal); D64.9 Anemia, unspecified; M54.50 Low back pain, unspecified; G89.29 Other chronic pain; R13.10 Dysphagia, unspecified

== ENCOUNTER → 2024-12-04 15:36 | Outpatient (BNVA) | payer MEDICARE, MEDICAID, SELFPAY | PROVIDERS: Visit Provider Physician Assistant | DX: I10 Essential (primary) hypertension (principal); D64.9 Anemia, unspecified; M54.50 Low back pain, unspecified; G89.29 Other chronic pain; R13.10 Dysphagia, unspecified; R09.89 Other specified symptoms and signs involving the circulatory and respiratory systems | CPT/HCPCS: 99212 ==

== ENCOUNTER 2025-01-08 15:51 | Outpatient (REF) | payer MEDICARE, MEDICAID, SELFPAY ==
[2025-01-08 18:08] LABS: MANUAL DIFF FLAG NO
[2025-01-08 18:47] LABS: Alanine Aminotransferase 25 U/L (0-31); Albumin Level 4.5 g/dL (3.5-5.0); Alkaline Phosphatase 80 U/L (39-117); Anion Gap 10 (12-20); Aspartate Amino Transferase 36 U/L (5-31); Blood Urea Nitrogen 25 mg/dL (9-16); Calcium 10.0 mg/dL (8.4-10.2); Carbon Dioxide 25 mmol/L (22-29); Chloride 104 mmol/L (96-108); Estimated Glomerular Filt Rate > 60; Iron 99 mcg/dL (30-160); Magnesium 2.0 mg/dL (1.6-2.6); Percent Iron Saturation 36 % (15-50); Potassium 3.8 mmol/L (3.3-5.1); Sodium 135 mmol/L (135-145); Total Iron Binding Capacity 272 mcg/dL (228-428); Total Protein 7.5 g/dL (6.5-8.0); Unsaturated Iron Binding 173 ug/dL
--- OUTSIDE RECORDS SUMMARY | 2025-01-08 18:50 | XMS_ITS | Clinical Summary ---
Author Organization [facility] Address [address] [place] [phone] Phone Care Team Providers Care Merchandising Representative Name Role Phone Ayesha Marroquin Primary Care Provider [phone] Allergies Active Allergy Reactions Criticality Noted Date [...] VACCINES (1 of 2) 1993 OSTEOPOROSIS SCREENING INITIAL (ONE-TIME) 02/15/2008 RSV VACCINE (1 - 1-dose 75+ series) 2018 INFLUENZA VACCINE (#1) 2024 , 11/30/2020, 12/13/2019, Additional history exists COVID-19 VACCINE ( season) 2024 03/04/2021, 05/29/2020, 05/08/2020 Adult Td,Tdap Booster 09/03/2030 09/03/2020, 011 PNEUMOCOCCAL VACCINES (50+ years) Completed 12/23/2015, 11/26/2010 HEPATITIS A VACCINES Aged Out No long er eligible based on patient's age to complete this topic HIB VACCINES Aged Out No longer eligi ble based on patient's age to complete this topic IPV VACCINES Aged Out No longer eligi ble based on patient's age to complete this topic MENINGOCOCCAL VACCINES (ACWY) Aged Out No longer eligible based on patient's age to complete this topic MENINGOCOCCAL VACCINES (B) Aged Out N o longer eligible based on patient's age to complete this topic Medical Devices Not on file Insurance MEDICARE PART A & B [facility] MEDICARE [facility] & [facility] [place] MED[place] PART A & [facility]IC[facility] PART A & B [facility] Care Teams Merchandising Representative Relationship Specialty Start Date End Date Ayesha Marroquin PA [address] [place] [address] PCP - General Physician Cardiac Cath Lab Technologist 10/03/23 Additional Source Comments The information contained in this document represents components of the legal health record. It is not the complete legal health record.[facility]
--- OUTSIDE RECORDS SUMMARY | 2025-01-08 18:50 | XMS_ITS | Clinical Summary ---
Author Organization [facility] Facility Address [address] [address] Care Team Providers Care Skin Specialist Name Role Phone Ayesha Marroquin PA-C Primary [...] topic Insurance Medicare [place] Care Teams Skin Specialist Relationship Specialty Start Date End Date Ayesha Marroquin PA-C [address] [place] [id number] PCP - General Physician [address] 08/23/23
--- OUTSIDE RECORDS SUMMARY | 2025-01-08 18:50 | XMS_ITS | Clinical Summary ---
Author Organization [address] [place] [address] [place] [id number] Phone Care Team Providers Care Talent Associate Name Role Phone Ayesha Marroquin Primary Care Provider [phone] Allergies Active Allergy Reactions Criticality Noted Date [...] mouth every 6 hours as needed. Active pantoprazole (PROTONIX) 40 mg EC tablet [...] 30 each 5 09/19/19 25 026 Active metoprolol tartrate (LOPRESSOR) 25 mg tablet TAKE 1/2 tablet BY MOUTH TWICE DAILY 90 tablet 12/31/19 25 Active metoprolol tartrate (LOPRESSOR) 25 mg tablet TAKE 1/2 tablet (12.5mg) BY MOUTH TWICE DAILY 12/12/19 24 025 Discontinued Active Problems Problem Noted Date [...] Continue atorvastatin 40 mg once daily. Immunizations Immunization Administration Dates Next Due Influenza Quadravalent, MDCK [...] 06/05; 05/30; fingeroth OTHER SURGICAL HISTORY PROCEDURE: RI CHOLECYSTECTOMY W/EXPLORATION COMMON DUCT FOOT SURGERY PROCEDURE: HISTORICAL FOOT SURGERY; COMMENT: left foot pin placed BUNIONECTOMY PROCEDURE: BUNION SURGERY, SIMPLE REMOVAL; COMMENT: bilateral OTHER SURGICAL HISTORY PROCEDURE: RI COLECTOMY PRTL W/COLOST/ILEOST & MUCOFISTULA; COMMENT: diverticulitis CERVICAL BIOPSY W/ LOOP ELEC TRODE EXCISION PROCEDURE: HISTORICAL CONE BIOPSY COLONOSCOPY 2003 PROCEDURE: OUTSIDE COLONOSCOPY; COMMENT: tics OTHER [facility]: COLON CA SCRN NOT HI RSK IND; COMMENT: tics and hemorrhoids; would not repeat ESOPHAGOGASTRODUODENOSCOPY [facility] [place]URE: [place] EGD TRANSORAL BIOPSY SINGLE/MULTIPLE; COMMENT: gastric erythema; nl appearing esophagus, dilated empirically to 20 mm; reactive antral changes w/o H. pylori; nl esoph. bxys SHOULDER SURGERY 01/08/2019 Right PROCEDURE: HISTORICAL SHOULDER SURGERY; COMMENT: arthroplasty; Dr. Clay ESOPHAGOGASTRODUODENOSCOPY 02/18/2021 PROCEDURE: RI EGD TRANSORAL BIOPSY SINGLE/MULTIPLE; COMMENT: retained bile. [...] (gastroesophageal reflux disease); COMMENT: Dr. Grossman Osteomyelitis ([facility] V24, [facility] V28) 2001 DX:Osteomyelitis ([facility]); COMM ENT: spine Other specified personal his [...] Relation Name Status Comments Brother (Age 45) [place] Daughter Alive 1970 healthy Father (Age 80) ? heart va lve problems, prostate ca, chf Mother (Age 81) lipids, di abetes, double bypass, [place]; CHF Sister 1 Alive thyroid Sister 2 [...] 03/27/2024 1:55 PM EST Plan of Treatment Health Maintenance Due Date Last Done Comments Hepatitis A Vaccines (1 of 2 - Risk 2-dose series) 1962 Zoster Vaccines (1 of 2) 1993 RSV Immunization Adult Patients (1 - 1-dose 75+ series) 2018 Falls Risk Assessment 02/05/2022 Medicare Annual Wellness Visit 02/05/2022 Social Influencers of Health Screening 02/05/2022 Depression Screening 02/28/2024 COVID-19 Vaccine ( season) 2024 03/04/2021, 05/29/2020, 05/08/2020 Influenza Vaccine (#1) 2024 [...] Procedure Name Priority Date/Time Associated Diagnosis Comments BASIC METABOLIC PANEL Routine 09/13/2024 3:45 PM EDT Dyspnea on exertion LIPID PANEL Routine 08/16/2021 DXA BONE DENSITY STUDY 1+ SITS AXIAL SKEL Routine 05/03/2018 12:46 PM EST Fracture of unspecified carpal bone, left wrist, subsequent encounter for fracture with delayed healing from Last 3 Months or Most Recently Relevant to Health Maintenance Results * (ABNORMAL) Basic metabolic panel (09/13/2024 3:45 [...] - 09/14/2024 10:07 AM EDT Performed at: 01 - [facility] [address] [id number] Gum Mixer: Casandra Sanchez MD, Phone: [phone] Sumi Kirby NP LAB BLOOD ORDERABLES Final Resu lt [facility] 1 * (ABNORMAL) Lipid panel (08/16/2021) LDL/HDL Ratio 3 0 - 4 Triglycerides 203(A) 0 - 150 mg/dL Cholesterol 175 0 - 200 mg/dL HDL 71 >=40 mg/dL LDL Cholesterol 64 0 - 100 mg/dL Blood Venous blood specimen / Unknown [facility] Provider LAB BLOOD ORDERABLES Genai l Result * DXA BONE DENSITY STUDY [...] 6.9%. IMPRESSION: Normal by WHO criteria. [facility] Department of Internal Medicine recommends using [...] alternative screening schedule based on tara Chirinos., [facility] March 17, 2011 for patients with [...] 6.9%. IMPRESSION: Normal by WHO criteria. [facility] Department of Internal Medicine recommendsusing National [...] Insurance MEDICARE MEDICAID - [place] Care Teams Talent Associate Relationship Specialty Start Date End Date Ayesha Marroquin PA [address] [place] [id number] PCP - General 12/29/22
--- OUTSIDE RECORDS SUMMARY | 2025-01-08 18:50 | XMS_ITS | Clinical Summary ---
Author Organization [facility] Address [address] [place] [id number] Care Team Providers Care Rolfer Name Role Phone Maricarmen Thomas MD Primary [...] 1-dose 75+ series) 2018 COVID-19 Vaccine ( - season) 2024 03/04/2021, 05/29/2020, 05/08/2020 Influenza Vaccine [...] age to complete this topic Care Teams Rolfer Relationship Specialty Start Date End Date Maricarmen Thomas MD PCP - General Internal Medicine 07/17/18
[2025-01-08 19:06] LABS: Hematocrit 30.7 % (37.0-47.0); Hemoglobin 10.0 g/dl (12.0-16.0); Imm Gran Abs Auto 0.03 X10*3/uL (0.00-0.03); Imm Gran Pct Auto 0.5 % (0.0-0.4); Lymphocytes Absolute Auto 1.1 X10*3/uL (1.2-4.9); Mean Corpuscular HGB Conc 32.6 g/dl (31.0-35.0); Mean Corpuscular Hemoglobin 31.2 pg (27.0-33.0); Mean Corpuscular Volume 95.6 fL (80.0-98.0); NRBC Abs Auto 0.000 X10*3/uL (0.0-0.012); NRBC Pct Auto 0.0 /100WBC (0.0-0.2); Platelet Count 207 X10*3/uL (160-400); Red Blood Count 3.21 X10*6/uL (4.20-5.50); White Blood Count 5.6 X10*3/uL (4.8-10.8)
== END 2025-01-08 15:52 | disposition home or self-care (01) ==
LOC: HO.WFDLDS 15:51
PROVIDERS: Referring Provider Internal Medicine Nephrology; Visit Provider Physician Assistant
DX: I10 Essential (primary) hypertension (principal); E87.1 Hypo-osmolality and hyponatremia; E78.2 Mixed hyperlipidemia; M54.50 Low back pain, unspecified; J44.9 Chronic obstructive pulmonary disease, unspecified; G89.29 Other chronic pain; D64.9 Anemia, unspecified
CPT/HCPCS: 36415; 80053; 82248; 83540; 83735; 84443; 85025

== ENCOUNTER 2025-01-09 15:05 | Outpatient (AMB) | payer MEDICARE, MEDICAID, SELFPAY ==
--- NOTE | 2025-01-09 15:09 | A.OFFPC_ITS ---
Vital Signs 01/09/25 15:14 01/09/25 15:22 Height 5 ft 3 in Weight 192 lb BMI 34.0 BP 146/84 H 146/82 H Blood Pressure Location Lt brachial Lt brachial Position Sitting Respiration 14 Pulse 75 Pulse Source Pulse Oximeter Temp 97.5 F Temp Source Oral Pulse Oximetry (%) 95 Oxygen Delivery Method Room Air Intake Visit Reasons: med check Intake Note: Medication follow up Green Lumber Grader Required: No Allergies codeine Allergy (Intermediate, Verified 12/04/24 15:45) headache duloxetine (From Cymbalta) Allergy (Mild, Verified 12/04/24 15:45) Itching Medication List - Last Reconciled 01/09/25 by Ayesha Marroquin PA-C acetaminophen 1,000 mg (2 x 500 mg) PO Q6H PRN albuterol sulfate 90 mcg/actuation 2 puffs inhalation Q6H PRN 30 days aspirin 81 mg PO DAILY atorvastatin 40 mg PO DAILY Breo Ellipta 200-25 mcg/dose (fluticasone furoate-vilanterol) 1 inh inhalation DAILY NS cholecalciferol (vitamin D3) 50 mcg PO DAILY diclofenac sodium 1% 4 grams topical QID PRN diclofenac sodium 1% (Voltaren Arthritis Pain) 2 grams topical BID docusate sodium 100 mg PO DAILY docusate sodium 100 mg PO BID fluticasone propionate 50 mcg/actuation (Allergy Relief (fluticasone)) 1 spray intranasal DAILY inhalational spacing device (Aerochamber Plus Z Stat spacer) As directed isosorbide mononitrate ER 30 mg PO DAILY lidocaine 5% 1 patch topical DAILY lorazepam 1 mg (2 x 0.5 mg) PO BEDTIME PRN 30 days meloxicam 15 mg PO DAILY metoprolol tartrate 25 mg PO BID ui-tho-qknnp-calcium carb-K1 400 mcg-500 mg calcium-20 mcg (Women's 50 Plus Multivitamin) tabs PO pantoprazole 40 mg PO DAILY sertraline 150 mg (1.5 x 100 mg) PO DAILY 90 days simethicone 80 mg PO Q6H PRN sucralfate 1 g PO BID tramadol 50 mg PO BID PRN 30 days vitamins A,C,H-ljfz-oohfdh 4,296 mcg-226 mg-90 mg (PreserVision AREDS) 1 cap PO BID Tobacco use date assessed: 01/09/25 Fall risk assessment: 1 Fall in past year Last assessed Fall Risk: 01/09/25 Dental Screening Dental Screen Date: 01/09/25 Did you have a dental visit in the last 12 months?: No Did you have a dental problem in the last 6 months where you did not have access to dental care?: No Was dental information given to patient?: Patient declined (no teeth) HPI med check HPI Details Patient is an 79-year-old female who presents today for a follow up. HEENT: states 2 days ago she had some congestion and a cough. The cough has resolved. She still has a scratchy voice. She denies any fever or chills. No fever or chills. No sinus pain or pressure. CV: Blood pressure today in the office is 146/82. Bps have been elevated at home. She is currently on metoprolol 12.5 mg twice a day, isosorbide 30 mg daily. Cholesterol is controlled with atorvastatin 40 mg. She had a neg stress and cath in 2023 despite the calcifications seen on CT. Has cardiology follow up with [facility]. Pulm: Sees pulmonology and was recently on breo, likes it better than trelegy. Has albuterol to use as needed. Heme: Follows with Dr. Contreras at [facility].. She sees him q 6 months for anemia and mgus. Saw GI for a colonoscopy and endoscopy in 2019 (no report available) GI: States for many years she has had episodes where she would choke on her food but recently over the last couple of months it has gotten worse. She cuts her food very small and feels like she has a drink water after each bite. No weight loss. No abdominal pain or heartburn. No nausea, vomiting or diarrhea. Nephro: following with Dr. Barrera and fluid restricted for the hyponatremia. Endo: She was following with endo for hyperparathyroidism Musculoskeletal: She was referred to physiatry and has not seen Dr. Grayson yet. She used to see him for injections and looks forward to this appointment. She is currently on meloxicam and Tylenol for pain. Intermittently use of tramadol and feels good relief of symptoms with this. Wondering if she can take this more consistently. Psych: Has a new therapist named Edmar. She is seeing a psychiatrist at the end of the month. She is currently on zoloft, buspar, and ativan. usually forgets buspar and finds it ineffective. She is tearful today. She has a lot of stress and anxiety. She feels that her depression is exacerbated. She denies any SI/HI. Derm: Followed with Dermatology for her hair growth and they told her that there was nothing really she could do besides that. [facility] Medical History (Updated 01/09/25 @ 15:26 by Ayesha Marroquin PA-C) Contusion of left arm Contusion of left lower extremity Insomnia Chronic fatigue IBS (irritable bowel syndrome) GERD (gastroesophageal reflux disease) Osteoporosis Fibromyalgia Depression, major, recurrent, moderate Generalized anxiety disorder CAD (coronary artery disease) Hyperlipidemia HTN (hypertension), benign Diverticulitis FHx: total knee replacement Surgical History S/P hip replacement H/O shoulder replacement Social History Housing: Other Housing Other:: Mobile home Alcohol intake: current Patient Tobacco Use Status: Former Tobacco user Tobacco use type: Cigarette Years Smoked: 16 years total. Smoked socially. quit 25 years ago e-Cigarette/Vaping Use: Never Used Second Hand Smoke Exposure: Yes service: No Current occupational status: retired Cognitive needs: No Hearing needs: No Vision needs: No Questionnaire Thrive Questionnaire Date Thrive assessed: 05/13/24 I am a: Patient What is your living situation today?: I have a steady place to live Within the past 12 months, did the food you bought not last and you didn't have the money to get more?: I choose not to answer this question Within the past 12 months, did you worry whether your food would run out before you got money to buy more?: Sometimes True Do you have trouble paying for medicines?: No Do you have trouble getting transportation to medical appointments?: No Do you have trouble paying your heating and electricity bill?: Yes Do you have trouble taking care of your child, family member or friend?: No Do you have trouble with day-to-day activities such as bathing, preparing meals, shopping, managing finances, etc.?: I choose not to answer this question Are you currently unemployed and looking for a job?: I choose not to answer this question Are you interested in more education?: No Please select the resources that you would like help with: Utilities Currently or been in a relationship where the following occur: No concerns re ported THRIVE Score: 2 MAYTE-7 AMB Questionnaire MAYTE-7 Date MAYTE - 7 assessed: 06/08/23 Source: Developed by Drs. Johnathan Landeros, Yanelis Maldonado, Dutch Vogel and colleagues, with an educational rambo from [employer]. Physical exam (Primary Care) Tobacco/Smoking Status: Tobacco use Status Tobacco use date assessed 06/19/24 01/09/25 15:10 Patient Tobacco Use Status Former Tobacco user 01/09/25 15:10 Tobacco use type Cigarette 01/09/25 15:10 e-Cigarette/Vaping Use Never Used 01/09/25 15:10 Thrive Assessment: Date of Thrive Assessment Date Thrive assessed 05/13/24 01/09/25 15:10 Currently or been in a relationship where the following occur: No concerns reported Const Orientation/consciousness: patient oriented x3 HENMT Ears: hearing grossly normal bilaterally and TM's normal bilaterally General nose exam: Normal nasal mucous membranes and turbinates present Face and sinus: Yes sinuses nontender Neck Thyroid: Thyroid normal Lymphatic: no lymphadenopathy noted Resp Auscultation: clear to auscultation bilaterally Cardio Rate: regular rate Rhythm: regular rhythm Heart sounds: S1 normal heart sound present and S2 normal heart sound present GI Inspection: Yes normal to inspection Palpation (GI): Soft to palpation and Other GI palpation findings present (nontender, no cva tenderness) Auscultation: normoactive bowel sounds Rectal Exam - Female: deferred Skin General skin exam: no rashes or lesions noted Neuro General: patient oriented x3, gait normal and no focal motor deficits Results Reviewed Results Reviewed: Laboratory Tests 01/08/25 15:55 WBC 5.6 RBC 3.21 L Hgb 10.0 L Hct 30.7 L Plt Count 207 Sodium 135 Potassium 3.8 Chloride 104 Carbon Dioxide 25 Anion Gap 10 L BUN 25 H Creatinine 0.81 Estimated GFR > 60 Random Glucose 94 AST 36 H ALT 25 Alkaline Phosphatase 80 Coding Level of Care Code Est Pt Level 4 (94157) Complex EM visit Add On G2211 Diagnoses HTN (hypertension), benign I10 Anemia, unspecified type D64.9 Anemia type: unspecified type Chronic low back pain M54.50; G89.29 Dysphagia R13.10 Viral URI with cough J06.9 Assessment & Plan Assessment & Plan (1) HTN (hypertension), benign: Code(s): I10 - Essential (primary) hypertension Category: Medical Plan: increase metoprolol to 25 mg bid. (2) Anemia, unspecified: Code(s): D64.9 - Anemia, unspecified Category: Medical Qualifiers: Anemia type: unspecified type Qualified Code(s): D64.9 - Anemia, unspecified Plan: stable (3) Chronic low back pain: Code(s): M54.50 - Low back pain, unspecified; G89.29 - Other chronic pain Category: Medical Plan: well controlled with tramadol twice a day (4) Dysphagia: Code(s): R13.10 - Dysphagia, unspecified Category: Medical Plan: Barium swallow scheduled 02/10. was referred to GI She will let me know if anything worsens or changes prior to our follow up. (5) Viral URI with cough: Code(s): J06.9 - Acute upper respiratory infection, unspecified Category: Medical Plan: improving/resolved Plan flu shot today return to follow up in 3 months Medications: New metoprolol tartrate 25 mg PO BID 180 tabs 1RF
[2025-01-09 15:14] VITALS: BP 146/84; PULSE 75; RESP 14; TEMP 36.4; O2SAT 95; BMI 34.0
[2025-01-09 15:22] VITALS: BP 146/82
--- OUTSIDE RECORDS SUMMARY | 2025-01-09 18:19 | XMS_ITS | Clinical Summary ---
Author Organization [address] [place] [address] [place] [id number] Phone Care Team Providers Care Geothermal Electrical Engineer Name Role Phone Ayesha Marroquin Primary Care Provider [phone] Allergies Active Allergy Reactions Criticality Noted Date [...] 06/05; 05/30; fingeroth OTHER SURGICAL HISTORY PROCEDURE: [place] CHOLECYSTECTOMY W/EXPLORATION COMMON DUCT FOOT SURGERY PROCEDURE: HISTORICAL FOOT SURGERY; COMMENT: left foot pin placed BUNIONECTOMY PROCEDURE: BUNION SURGERY, SIMPLE REMOVAL; COMMENT: bilateral OTHER SURGICAL HISTORY PROCEDURE: WA COLECTOMY PRTL W/COLOST/ILEOST & MUCOFISTULA; COMMENT: diverticulitis CERVICAL BIOPSY W/ LOOP ELEC TRODE EXCISION PROCEDURE: HISTORICAL [place] BIOPSY COLONOSCOPY 2003 PROCEDURE: OUTSIDE COLONOSCOPY; COMMENT: tics OTHER SURGICAL HISTORY 11/19/15 [facility] PROCEDURE: COLON CA SCRN NOT HI RSK IND; COMMENT: tics and hemorrhoids; would not repeat ESOPHAGOGASTRODUODENOSCOPY [facility]19[facility]15 [facility] PROCEDURE: WA EGD TRANSORAL BIOPSY SINGLE/MULTIPLE; COMMENT: gastric erythema; nl appearing esophagus, dilated empirically to 20 mm; reactive antral changes w/o H. pylori; nl esoph. bxys SHOULDER SURGERY 01/08/2019 Right PROCEDURE: HISTORICAL SHOULDER SURGERY; COMMENT: arthroplasty; Dr. Clay ESOPHAGOGASTRODUODENOSCOPY 02/18/2021 PROCEDURE: WA EGD TRANSORAL BIOPSY SINGLE/MULTIPLE; COMMENT: retained bile. [...] (gastroesophageal reflux disease); COMMENT: Dr. Grossman Osteomyelitis ([facility] V24, [facility] V28) 2001 DX:Osteomyelitis ([facility]); COMM ENT: spine Other specified personal [...] Relation Name Status Comments Brother (Age 45) [place] Daughter Alive 1970 healthy Father (Age 80) ? heart va lve problems, prostate ca, chf Mother (Age 81) lipids, di abetes, double bypass, [place]; CHF Sister 1 Alive thyroid Sister 2 [...] AM EDT Performed at: 01 - [facility] [address] [id number] Candy Forming Machine Operator: Casandra Sanchez MD, Phone: [phone] Sumi Kirby NP LAB BLOOD ORDERABLES Final Resu lt [facility] 1 * (ABNORMAL) Lipid panel (08/16/2021) LDL/HDL Ratio 3 0 - 4 Triglycerides 203(A) 0 - 150 mg/dL Cholesterol 175 0 - 200 mg/dL HDL 71 >=40 mg/dL LDL Cholesterol 64 0 - 100 mg/dL Blood Venous blood specimen / Unknown [facility] Provider LAB BLOOD ORDERABLES Genia l [...] 6.9%. IMPRESSION: Normal by WHO criteria. [facility] Department of Internal Medicine recommends [...] alternative screening schedule based on tara Chirinos., [facility] March 17, 2011 for patients with osteopenia [...] 6.9%. IMPRESSION: Normal by WHO criteria. The [facility] Department of Internal Medicine recommendsusing [...] Insurance MEDICARE MEDICAID - [place] Care Teams Geothermal Electrical Engineer Relationship Specialty Start Date End Date Ayesha Marroquin PA [address] [place] [phone] PCP - General 12/29/22
--- OUTSIDE RECORDS SUMMARY | 2025-01-09 18:19 | XMS_ITS | Clinical Summary ---
Author Organization [facility] Facility Address [address] [address] Care Team Providers Care Community Development Specialist Name Role Phone Ayesha Marroquin PA-C [...] topic Insurance Medicare Medicaid [place] Care Teams Community Development Specialist Relationship Specialty Start Date End Date Ayesha Marroquin PA-C [address] [place] [id number] PCP - General Physician Shredding Floor Equipment Operator 08/23/23
--- OUTSIDE RECORDS SUMMARY | 2025-01-09 18:19 | XMS_ITS | Clinical Summary ---
Author Organization [facility] Address [address] [place] [phone] Phone Care Team Providers Care Lath Hand Name Role Phone Ayesha Marroquin Primary Care Provider [phone] Allergies Active Allergy Reactions Criticality Noted Date [...] file Insurance MEDICARE PART A & B [facility] MEDIC[facility] PART A & B [facility] [place] [facility] PART [facility] & B [facility] Care Teams Lath Hand Relationship Specialty Start Date End Date Ayesha Marroquin PA [address] [place] [address] PCP - General Physician Billet Grinder 10/03/23 Additional Source Comments The information contained in this document represents components of the legal health record. It is not the complete legal health record.[facility]
--- OUTSIDE RECORDS SUMMARY | 2025-01-09 18:19 | XMS_ITS | Clinical Summary ---
Author Organization [facility] Address [address] [place] [id number] Care Team Providers Care Tape Coater Name Role Phone Marciarmen Thomas MD Primary Care Provid er Allergies [...] age to complete this topic Care Teams Tape Coater Relationship Specialty Start Date End Date Maricarmen Thomas MD PCP - General Internal Medicine 07/17/18
== END 2025-01-09 15:40 | disposition home or self-care (01) ==
LOC: HO.HMCFM 15:06
PROVIDERS: Family Provider Physician Assistant; PCP Physician Assistant; Visit Provider Physician Assistant
DX: I10 Essential (primary) hypertension (principal); D64.9 Anemia, unspecified; M54.50 Low back pain, unspecified; G89.29 Other chronic pain; R13.10 Dysphagia, unspecified; J06.9 Acute upper respiratory infection, unspecified; Z23 Encounter for immunization

== ENCOUNTER 2025-01-09 15:05 | Outpatient (REF) | payer MEDICARE, MEDICAID, SELFPAY ==
[2025-01-09 18:03] LABS: Appearance Urine Clear; Glucose Urine UA Negative (Negative); PH 7.5 (5.0-9.0); Specific Gravity - Urine <= 1.005 (1.005-1.025)
== END 2025-01-09 15:06 | disposition home or self-care (01) ==
LOC: HO.WFDLDS 15:05
PROVIDERS: Family Provider Physician Assistant; Visit Provider Physician Assistant
DX: I10 Essential (primary) hypertension (principal); D64.9 Anemia, unspecified; M54.50 Low back pain, unspecified; G89.29 Other chronic pain; R13.10 Dysphagia, unspecified; J06.9 Acute upper respiratory infection, unspecified; Z23 Encounter for immunization; Z13.220 Encounter for screening for lipoid disorders
CPT/HCPCS: 81003; 90471; 90656; 99212

== ENCOUNTER 2025-02-12 15:01 | Outpatient (AMB) | payer MEDICARE, MEDICAID, SELFPAY ==
--- NOTE | 2025-02-12 15:04 | A.OFFVIS_ITS ---
Vital Signs 3 02/12/25 15:14 Height 5 ft 3 in Weight 191 lb 12.835 oz BMI 34.0 BP 134/72 Blood Pressure Location Rt brachial Position Sitting Pulse 76 Pulse Source Pulse Oximeter Pulse Oximetry (%) 95 Oxygen Delivery Method Room Air Intake Visit Reasons: Hyperparathyroidism Intake Note: NEW Patient presents today to establish care for Hyperparathyroidism, unspecified: No acute complaints reported at this time L Infant Teacher Required: No Accompanied by: Self / Same As Patient Allergies codeine Allergy (Intermediate, Verified 02/12/25 15:16) headache duloxetine (From Cymbalta) Allergy (Mild, Verified 02/12/25 15:16) Itching HPI Comments Details: 79 yo female seen in the office for initial evaluation and management of possible hyperparathyroidism. Consultation for evaluation of elevated parathyroid hormone (PTH) levels. Reports a history of osteoporosis, diagnosed approximately three to four years ago based on a bone density scan performed at [facility], unclear if she had any treatment at that time. A follow-up bone density scan was scheduled for last week but was missed. Reports a history of COPD, diagnosed within the last two years. Also reports irritable bowel syndrome (IBS), gastroesophageal reflux disease (GERD), and gastroparesis, which causes stomach upset with pills if not taken with food. Reports a history of fibromyalgia, though it is not formally diagnosed. Also has a history of coronary artery disease and hypertension. Reports recent symptoms of dysphagia, particularly with bread and spaghetti, which can cause choking and a sensation of something being stuck in the throat. This is preceded by hiccups. Also reports a recent cold, which has now resolved, but still feels a sensation in the throat. - Past medical history includes osteoporosis, COPD, IBS, GERD, gastroparesis, coronary artery disease, and hypertension. Hospitalized for one week in the past for hyponatremia. - Current medications include a women's multivitamin (taken intermittently), vitamin D3 2000 IU daily, and an unspecified medication for gastroparesis. Previously took calcium supplements but has not taken them in over a year. - Social history includes living [place] in [place]. Reports a poor appetite and recent weight gain despite eating very little. Diet consists of minimal food intake; for example, yesterday's intake was toast with cinnamon and coffee in the morning, and a small bowl of cereal at night. Drinks milk occasionally, such as the cartons provided with Meals on Wheels, but not regularly with meals. Consumes cottage cheese daily with crackers and wine around suppertime. Eats green leafy vegetables like spinach and kale infrequently. Family history is limited due to parents being [place] immigrants who did not seek much medical care; no known family history of calcium problems. - No known allergies. Physical exam: General: Well appearing. NAD. Neck/Thyroid: Thyroid not palpable, no nodules. CV: RRR, no murmur. No edema. Resp:Lungs clear to auscultation bilaterally Abdomen: Soft, nontender. nondistended Extremities/Neuro: No weakness or tremor of outstretched hands [facility] Medical History (Updated 01/09/25 @ 15:26 by Ayesha Marroquin PA-C) Contusion of left arm Contusion of left lower extremity Insomnia Chronic fatigue IBS (irritable bowel syndrome) GERD (gastroesophageal reflux disease) Osteoporosis Fibromyalgia Depression, major, recurrent, moderate Generalized anxiety disorder CAD (coronary artery disease) Hyperlipidemia HTN (hypertension), benign Diverticulitis FHx: total knee replacement Surgical History S/P hip replacement H/O shoulder replacement Social History Housing: Other Housing Other:: Mobile home Alcohol intake: current Patient Tobacco Use Status: Former Tobacco user Tobacco use type: Cigarette Years Smoked: 16 years total. Smoked socially. quit 25 years ago e-Cigarette/Vaping Use: Never Used Second Hand Smoke Exposure: Yes service: No Current occupational status: retired Cognitive needs: No Hearing needs: No Vision needs: No Physical Exam Vital Signs: Last Vital Signs Pulse 76 02/12/25 15:14 BP 134/72 02/12/25 15:14 Pulse Ox 95 02/12/25 15:14 Oxygen Delivery Method Room Air 02/12/25 15:14 BMI result Body Mass Index 34.0 Assessment & Plan Assessment & Plan (1) Hyperparathyroidism: Code(s): E21.3 - Hyperparathyroidism, unspecified Category: Medical Plan: Assessment: The primary concern is an elevated PTH level. She does not have any known family history of hyper parathyroidism or calcium problems. Review her records shows that she has always had normal calcium levels, and there is no history of kidney stones. The clinical significance is uncertain at this time, differential diagnosis include normal calcemia primary hyperparathyroidism, insufficient calcium intake, false-positive PTH results at the [facility] laboratory where the test was performed. - Investigations planned: Repeat laboratory studies, including PTH and calcium levels, will be performed at [facility] in [place] to rule out a lab error. A 24-hour urine collection for calcium will also be ordered to assess for hypercalciuria. - Medical treatment planned: Advised to take calcium carbonate 500 mg daily. This can be achieved by taking the women's multivitamin daily, as it contains 500 mg of calcium carbonate. - Lifestyle modifications: Continue current diet. - Follow-up appointments: A follow-up appointment is scheduled in two months to review the results of the repeat laboratory studies and the bone density scan. - Referrals: Will order a bone density scan Additional Notes: - Patient education on the diagnosed condition: Explained that PTH is a hormone produced by the parathyroid glands that regulates calcium metabolism. Discussed that the elevated PTH could be a lab error and that further testing is needed to confirm the finding before any definitive conclusions can be drawn. - Instructions for monitoring and managing symptoms: Provided written instructions on how to perform the 24-hour urine collection test. - Any specific patient or family concerns addressed during the consultation: Addressed concerns regarding the elevated PTH and reassured that it may be a lab error. Discussed the plan to repeat testing to clarify the situation. Plan 45 minutes spent reviewing previous records, labs, imaging, education and documenting in the chart Orders: Orders 2 Creatinine, 24 Hr Group Today E21.3 - Hyperparathyroidism, unspecified Calcium, Ionized Today E21.3 - Hyperparathyroidism, unspecified Comprehensive Met. Panel Today E21.3 - Hyperparathyroidism, unspecified Vitamin D 25-OH Total Today E21.3 - Hyperparathyroidism, unspecified XR DEXA appendicular skeleton Today E21.3 - Hyperparathyroidism, unspecified, M81.0 - Age-related osteoporosis without current pathological fracture Calcium, 24 Hr Ur Today E21.3 - Hyperparathyroidism, unspecified Phosphorus Today E21.3 - Hyperparathyroidism, unspecified TSH reflex Free T4 Today E21.3 - Hyperparathyroidism, unspecified Patient Instructions: 24-Hour Urine Calcium Collection Instructions Purpose: This test measures the amount of calcium excreted in your urine over a 24-hour period. It helps evaluate calcium metabolism and diagnose certain conditions. Supplies Needed: 24-hour urine collection container (provided by the lab or clinic) Urine hat or collection device (optional, for easier collection) Written instructions (this sheet) Instructions: Start the Collection: Choose a day when you can be at home or have easy access to a bathroom. Upon waking up on the first day, urinate and discard this first morning urine. Do not collect this sample. Note the exact time?this is your start time. Collect All Urine: For the next 24 hours, collect all urine you pass into the provided container. Each time you urinate, collect it in a clean container and transfer it to the 24-hour collection jug. Store the collection container in a cool place, preferably in a refrigerator or on ice, during the collection period. Finish the Collection: Exactly 24 hours after your start time, urinate one last time and add this urine to the container. This completes the collection. After Collection: Ensure the lid is tightly closed. Label the container with your name, date, and start/end times. Return the container to the laboratory or your physician?s office as soon as possible after completion. Important Tips: Do not miss any urine during the 24-hour period. If you do, the test may need to be repeated. Do not allow toilet paper, stool, or other materials to get into the urine sample. Continue your usual diet unless instructed otherwise. Some tests may require you to avoid certain foods or medications?follow any additional instructions provided by your physician. Coding Level of Care Code New Pt Level 4 (59454) Add On Problem Visit Only Diagnoses Hyperparathyroidism E21.3
[2025-02-12 15:14] VITALS: BP 134/72; PULSE 76; O2SAT 95; BMI 34.0
--- OUTSIDE RECORDS SUMMARY | 2025-02-12 20:00 | XMS_ITS | Clinical Summary ---
Author Organization [address] [place] [address] [place] [phone] Phone Care Team Providers Care Learning Support Aide Name Role Phone Ayesha Marroquin Primary Care Provider [phone] Allergies Active Allergy Reactions Criticality Noted Date [...] 30 each 5 5 09/19/19 26 Active metoprolol tartrate (LOPRESSOR) 25 mg tablet TAKE 1/2 tablet BY MOUTH TWICE DAILY 90 tablet 5 Active Active Problems Problem Noted Date [...] COLONOSCOPY; COMMENT: tics OTHER SURGICAL HISTORY 11/19/15 [facility] Mus PROCEDURE: COLON CA SCRN NOT HI RSK IND; COMMENT: tics and hemorrhoids; would not repeat ESOPHAGOGASTRODUODENOSCOPY 11/19/15 [facility] [place] EGD TRANSORAL BIOPSY SINGLE/MULTIPLE; COMMENT: [...] (gastroesophageal reflux disease); COMMENT: Dr. Grossman Osteomyelitis ([facility] V24, [facility] V28) 2001 DX:Osteomyelitis ([facility]); COMM ENT: spine Other specified [...] Relation Name Status Comments Brother (Age 45) [place] Daughter Alive 1970 healthy Father (Age 80) ? heart va lve problems, prostate ca, chf Mother (Age 81) lipids, di abetes, double bypass, [place]; CHF Sister 1 Alive thyroid Sister 2 [...] Health Maintenance Due Date Last Done Comments Drug Screen 1945 Non-Opioid Controlled Substance Agreement 1945 Hepatitis A Vaccines (1 of 2 - [...] at: 01 - [facility] [address] [id number] Steel Hanger: Casandra Sanchez MD, Phone: [phone] Sumi Kirby NP LAB BLOOD ORDERABLES Final Resu lt [facility] 1 * (ABNORMAL) Lipid panel (08/16/2021) Pathologist [facility] LDL/HDL Ratio 3 0 - 4 Triglycerides [...] 6.9%. IMPRESSION: Normal by WHO criteria. [facility] Department of Internal Medicine recommends using [...] screening schedule based on tara Chirinos., BANNER March 17, 2011 for patients with osteopenia [...] 6.9%. IMPRESSION: Normal by WHO criteria. [facility] Department of Internal Medicine recommendsusing National [...] alternative screening schedule based on tara Chirinos., BANNERJanuary 2011 for patients with osteopenia (based on [...] Insurance MEDICARE [place] Care Teams Learning Support Aide Relationship Specialty Start Date End Date Ayesha Marroquin PA [address] [place] [id number] PCP - General 12/29/22
--- OUTSIDE RECORDS SUMMARY | 2025-02-12 20:00 | XMS_ITS | Clinical Summary ---
Author Organization [facility] Prior to 07/27/[address] [place] [id number] Care Team Providers Care Keyboard Specialist Name Role Phone Maricarmen Thomas MD Primary [...] age to complete this topic Care Teams Keyboard Specialist Relationship Specialty Start Date End Date Maricarmen Thomas MD PCP - General Internal Medicine 07/17/18
--- OUTSIDE RECORDS SUMMARY | 2025-02-12 20:00 | XMS_ITS | Clinical Summary ---
Author Organization [facility] Address [address] [place] [phone] Phone Care Team Providers Care Letterpress Setter Name Role Phone Ayesha Marroquin Primary Care Provider [phone] Allergies Active Allergy Reactions Criticality Noted Date [...] file Insurance MEDICARE PART A & B [facility] A & [facility] MED[facility] A & [facility] [address] [place] [address] MEDICARE PART A & B Member Subscriber Plan / Payer (Ef fective 2002-Present) Name:Rose Whitehead Member ID:[id number] Relation to Subscriber:Self Name:Rose Whitehead Subscriber ID:[id number] Payer ID:[id number] Group ID:Not on file Type:Medicare Address: [employer] [address] [place] [address] [facility] Care Teams Letterpress Setter Relationship Specialty Start Date End Date Ayesha Marroquin PA [address] [place] [id number] PCP - General Physician Auto Service Mechanic 10/03/23 Additional Source Comments The information contained in this document represents components of the legal health record. It is not the complete legal health record.[facility]
== END 2025-02-12 15:42 | disposition home or self-care (01) ==
LOC: HO.ENCR 15:02
PROVIDERS: PCP Physician Assistant; Visit Provider Student in an Organized Health Care Education/Training Program
DX: E21.3 Hyperparathyroidism, unspecified (principal)
CPT/HCPCS: 99204; G2211

== ENCOUNTER → 2025-02-12 15:01 | Outpatient (BNVA) | payer MEDICARE, MEDICAID, SELFPAY | PROVIDERS: PCP Physician Assistant; Visit Provider Student in an Organized Health Care Education/Training Program | DX: E21.3 Hyperparathyroidism, unspecified (principal) | CPT/HCPCS: 99202 ==